=== PATIENT | female | born 1950 | race Caucasian/White ===

== ENCOUNTER 2021-12-27 10:32 | Outpatient (REF) | payer MEDICARE, SELFPAY ==
[2021-12-27 16:33] LABS: HCT 39.6 % (36.0-46.0); HGB 13.2 g/dL (11.2-15.7); MCH 30.9 pg (27.0-33.0); MCHC 33.3 % (32.0-36.0); MCV 93 fL (80-95); MPV 10.9 fL (8.0-11.0); Platelet Count 220 10^3/uL (130-400); RBC 4.27 10^6/uL (3.93-5.22); RDW 12.5 % (11.7-14.6); RDW-SD 42.5 fL; WBC 5.39 10^3/uL (4.4-10.8)
[2021-12-27 16:45] LABS: Hemoglobin A1C 7.7 % (<5.7)
[2021-12-27 16:46] LABS: ALT 41 U/L (14-59); AST 31 U/L (15-37); Albumin 4.1 g/dL (3.4-5.0); Alkaline Phosphatase 77 U/L (46-116); Anion Gap 9.5 mmol/L (3-11); BUN 17 mg/dL (7-18); Bilirubin, Total 0.4 mg/dL (0.2-1.0); CO2 26.5 mmol/L (21.0-32.0); CREATININE 0.8 mg/dL (0.55-1.02); Calcium 8.9 mg/dL (8.5-10.1); Calculated LDL 85 mg/dL (<100); Chloride 103 mmol/L (98-107); Cholesterol 163 mg/dL (<200); Glucose 151 mg/dL (74-106); HDL Cholesterol 46 mg/dL (40-60); Potassium 4.4 mmol/L (3.5-5.1); Sodium 139 mmol/L (136-145); Total Protein 7.4 g/dL (6.4-8.2); Triglyceride 163 mg/dL (<150)
[2021-12-27 17:12] LABS: COMMENT (LAB VIEW ONLY) 29.29 mg/dL; Microalb ug/mg Crea 14.3 ug/mg Cr
== END 2021-12-27 10:33 | disposition home or self-care (01) ==
LOC: NCHCN 10:32
PROVIDERS: Visit Provider Physician Assistant
DX: E11.9 Type 2 diabetes mellitus without complications (principal); R23.3 Spontaneous ecchymoses
CPT/HCPCS: 80053; 80061; 85027; 82043; 82570; 83036

== ENCOUNTER → 2022-04-07 10:11 | Outpatient (BNVA) | payer MEDICARE, SELFPAY | PROVIDERS: Visit Provider Student in an Organized Health Care Education/Training Program | DX: G56.01 Carpal tunnel syndrome, right upper limb (principal); G56.02 Carpal tunnel syndrome, left upper limb; M65.331 Trigger finger, right middle finger; M65.332 Trigger finger, left middle finger; G56.21 Lesion of ulnar nerve, right upper limb; G56.22 Lesion of ulnar nerve, left upper limb | CPT/HCPCS: 99203 ==

== ENCOUNTER 2022-04-22 17:25 | Outpatient (REF) | payer MEDICARE, SELFPAY ==
[2022-04-22 18:40] LABS: HCT 41.8 % (36.0-46.0); MCH 30.8 pg (27.0-33.0); MCHC 33.5 % (32.0-36.0); MCV 92 fL (80-95); MPV 10.6 fL (8.0-11.0); Platelet Count 244 10^3/uL (130-400); RBC 4.55 10^6/uL (3.93-5.22); RDW 12.4 % (11.7-14.6); RDW-SD 42.1 fL; WBC 7.15 10^3/uL (4.4-10.8)
== END 2022-04-22 17:26 | disposition home or self-care (01) ==
LOC: NCHCN 17:25
PROVIDERS: PCP Physician Assistant; Visit Provider Physician Assistant
DX: R23.3 Spontaneous ecchymoses (principal)
CPT/HCPCS: 85027

== ENCOUNTER 2023-01-05 15:52 | Outpatient (REF) | payer BC, MEDICARE, SELFPAY ==
[2023-01-05 15:04] LABS: Hemoglobin A1C 6.4 % (<5.7)
[2023-01-05 15:07] LABS: ALT 40 U/L (14-59); AST 25 U/L (15-37); Albumin 4.1 g/dL (3.4-5.0); Alkaline Phosphatase 61 U/L (46-116); Anion Gap 11.3 mmol/L (3-11); BUN 21 mg/dL (7-18); Bilirubin, Total 0.3 mg/dL (0.2-1.0); CO2 24.7 mmol/L (21.0-32.0); CREATININE 0.9 mg/dL (0.55-1.02); Calculated LDL 75 mg/dL (<100); Chloride 102 mmol/L (98-107); Cholesterol 181 mg/dL (<200); Estimated GFR 68.35 (mL/min/1.73m2); Glucose 112 mg/dL (74-106); HDL Cholesterol 43 mg/dL (40-60); Potassium 4.6 mmol/L (3.5-5.1); Sodium 138 mmol/L (136-145); Total Protein 7.5 g/dL (6.4-8.2); Triglyceride 315 mg/dL (<150)
[2023-01-05 15:16] LABS: COMMENT (LAB VIEW ONLY) 80.28 mg/dL
== END 2023-01-05 15:53 | disposition home or self-care (01) ==
LOC: NCHCN 15:52
PROVIDERS: PCP Physician Assistant; Visit Provider Physician Assistant
DX: E11.9 Type 2 diabetes mellitus without complications (principal)
CPT/HCPCS: 80053; 80061; 82043; 82570; 83036

== ENCOUNTER 2023-01-20 07:58 | Outpatient (CLI) | payer MEDICARE, SELFPAY | END 2023-01-20 07:59 | disposition home or self-care (01) | LOC: DI.CARD 07:59 | PROVIDERS: PCP Physician Assistant; Visit Provider Internal Medicine Cardiovascular Disease | DX: I25.10 Atherosclerotic heart disease of native coronary artery without angina pectoris (principal) | CPT/HCPCS: 93010 ==

== ENCOUNTER → 2023-01-20 10:54 | Outpatient (BNVA) | payer MEDICARE, BC, SELFPAY | PROVIDERS: PCP Physician Assistant; Referring Provider Physician Assistant; Visit Provider Internal Medicine Cardiovascular Disease ==

== ENCOUNTER 2023-02-03 07:58 | Outpatient (CLI) | payer BC, MEDICARE, SELFPAY | END 2023-02-03 07:59 | disposition home or self-care (01) | LOC: DI.CARD 07:58 | PROVIDERS: PCP Physician Assistant; Visit Provider Internal Medicine Cardiovascular Disease | DX: I25.10 Atherosclerotic heart disease of native coronary artery without angina pectoris (principal) | CPT/HCPCS: 93010 ==

== ENCOUNTER → 2023-02-03 11:02 | Outpatient (BNVA) | payer BC, MEDICARE, SELFPAY | PROVIDERS: PCP Physician Assistant; Referring Provider Physician Assistant; Visit Provider Internal Medicine Cardiovascular Disease | CPT/HCPCS: 93005; 99202; 99213 ==

== ENCOUNTER 2023-03-24 09:31 | Outpatient (CLI) | payer BC, MEDICARE, SELFPAY ==
--- NOTE | 2023-03-24 10:00 | RT.EKG_ITS ---
APPROVED REPORT Exam: Resting ECG Reason for Exam: CAD Patient Location: O HR:81 bpm ECG Measurements Heart Rate 81 AXIS CA 142 P 64 QRSd 82 QRS 43 QT 383 T 43 QTc 445 Conclusion Sinus rhythm...normal P axis, V-rate 50- 99 Normal Electrocardiogram
== END 2023-03-24 09:32 | disposition home or self-care (01) ==
PROVIDERS: PCP Physician Assistant; Visit Provider Internal Medicine Cardiovascular Disease
DX: I25.10 Atherosclerotic heart disease of native coronary artery without angina pectoris (principal)
CPT/HCPCS: 93005; 93010

== ENCOUNTER 2023-10-13 12:00 | Outpatient (REF) | payer BC, MEDICARE, SELFPAY ==
[2023-10-13 15:16] LABS: HCT 39.9 % (36.0-46.0); MCH 30.3 pg (27.0-33.0); MCHC 32.6 % (32.0-36.0); MCV 93 fL (80-95); Platelet Count 249 10^3/uL (130-400); RBC 4.29 10^6/uL (3.93-5.22); RDW-SD 44.6 fL; WBC 8.37 10^3/uL (4.4-10.8)
[2023-10-13 15:43] LABS: Hemoglobin A1C 6.9 % (<5.7)
[2023-10-13 16:18] LABS: ALT 51 U/L (14-59); AST 29 U/L (15-37); Albumin 4.2 g/dL (3.4-5.0); Alkaline Phosphatase 56 U/L (46-116); Anion Gap 8.7 mmol/L (3-11); BUN 19 mg/dL (7-18); Bilirubin, Total 0.3 mg/dL (0.2-1.0); CO2 24.3 mmol/L (21.0-32.0); Calcium 8.9 mg/dL (8.5-10.1); Chloride 104 mmol/L (98-107); Cholesterol 159 mg/dL (<200); Estimated GFR 60.23 (mL/min/1.73m2); Glucose 134 mg/dL (74-106); HDL Cholesterol 46 mg/dL (40-60); Potassium 4.3 mmol/L (3.5-5.1); Sodium 137 mmol/L (136-145); Total Protein 7.5 g/dL (6.4-8.2); Triglyceride 412 mg/dL (<150)
[2023-10-13 16:37] LABS: LDL CHOLESTEROL 71 mg/dL (<100)
== END 2023-10-13 12:01 | disposition home or self-care (01) ==
LOC: NCHCN 12:00
PROVIDERS: PCP Physician Assistant; Visit Provider Physician Assistant
DX: E11.9 Type 2 diabetes mellitus without complications (principal); I10 Essential (primary) hypertension
CPT/HCPCS: 80053; 80061; 83721; 85027; 83036

== ENCOUNTER 2024-02-28 21:36 | Emergency (ER) | payer BC, MEDICARE, SELFPAY ==
[2024-02-28 21:39] VITALS: BP 188/94; PULSE 106; RESP 15; TEMP 36.9; O2SAT 95
--- NOTE | 2024-02-28 22:01 | DI.CT_ITS ---
Exam(s) CT ABDOMEN PELVIS WO EXAM: CT ABDOMEN PELVIS WO CLINICAL HISTORY: abd pain, h/o obstruction. TECHNIQUE: Imaging Protocol: Axial computed tomography images with coronal and sagittal reformatted images were created and reviewed CONTRAST MATERIAL: Intravenous: none Oral: None COMPARISON: No exams were available for comparison FINDINGS: VISUALIZED LUNG BASES: There is noncalcified 3 millimeter nodule left lower lobe noted. (Series 2/im age 4). Pleural effusions ABDOMEN: GI: There is evidence of previous bowel surgery with small bowel anastomosis noted in the pelvis with this being patulous and fecal filled in with some mild surrounding streaking at this level but witho ut an obvious high-grade obstruction at this time. LIVER: Liver is slightly prominent in size and hypodense implying steatosis. There no obvious discre te focal hepatic lesions evident on this non few study. GALLBLADDER/BILIARY: Gallbladder surgically absent. CBD is not dilated. PANCREAS: No evidence of pancreatic mass nor dilatation of the pancreatic duct. SPLEEN: Spleen is not enlarged. No obvious intrasplenic lesions. ADRENALS: There are no significant adrenal masses. KIDNEYS:No cysts evident. No solid renal masses. No calculi nor hydronephrosis. . ABDOMINAL AORTA: Heavily calcified but not enlarged. LYMPH NODES: There is no retroperitoneal nor paraaortic adenopathy. ABDOMINAL WALL: No evidence of significant anterior abdominal wall nor inguinal hernia. PELVIS: LYMPH NODES: There is no intrapelvic nor inguinal adenopathy. GI: No evidence of appendicitis.No evidence of sigmoid diverticulitis.. URINARY BLADDER: Bladder is collapsed. REPRODUCTIVE: Uterus surgically absent. No abnormal adnexal masses. OSSEOUS: No fractures. Multilevel lower lumbar spine fusion L4-5-S1. Also trans sacral stimulator a s well as posterior epidural leads at and above T12-L1 level. IMPRESSION: 1. There is evidence of previous partial small bowel resection with anastomosis in the pelvis. The a nastomosis appears somewhat patulous and fecal filled and there is some mild surrounding fat strandin g. Suspicious for element of developing obstruction at this level. Not exclude early leak. Read by [facility]. Final report called by myself to ER physician 02/29/2024 RADIATION DOSE DELIVERED: 395.34mGy.cm Total DLP DATA REPOSITORY: All CT scans at this facility are submitted to the National Radiology Data Registry (NRDR) Dose Index Registry (DIR) with the [employer] (A[employer]). RADIATION OPTIMIZATION: All CT scans at this facility use at least one of these dose optimization te chniques: automated exposure control; mA and/or kV adjustment per patient size (includes targeted exa ms where dose is matched to clinical indication); or iterative reconstruction.
--- NOTE | 2024-02-28 22:18 | ED.GENADUL_ITS ---
Discharge Plan Discharge Details Chief Complaint: Abd Prob Primary Care Provider: Nikolas Matos ED Provider: Imelda Paige Home Meds and New Rx's Prescriptions: No Action fluticasone propion-salmeterol [Advair Diskus] 250-50 mcg/dose blister with device 1 inh inhalation BID albuterol sulfate 90 mcg/actuation HFA aerosol inhaler 2 puff inhalation Q6H PRN amlodipine 10 mg tablet 10 mg PO DAILY diphenhydramine HCl [Allergy (diphenhydramine)] 25 mg capsule 25 mg PO QHS PRN isosorbide mononitrate 60 mg tablet extended release 24 hr 60 mg PO DAILY nitroglycerin 0.4 mg tablet, sublingual 0.4 mg sublingual Q5M PRN Rx Instructions: do not exceed 3 doses per episode omeprazole 20 mg capsule,delayed release(DR/EC) 20 mg PO BID pravastatin 20 mg tablet 20 mg PO DAILY aspirin 81 mg tablet,delayed release (DR/EC) 81 mg PO DAILY stool softener PO BID metformin 1,000 mg tablet 1,000 mg PO BID hydroxyzine HCl 25 mg tablet 25 mg PO TID PRN Jardiance 10 mg tablet 10 mg PO DAILY triamcinolone acetonide 0.1 % cream 1 applic topical BID losartan 25 mg tablet 100 mg PO DAILY topiramate [Topamax] 25 mg tablet 25 mg PO BID levalbuterol tartrate 45 mcg/actuation HFA aerosol inhaler 2 inh inhalation Q6H atorvastatin 20 mg tablet 20 mg PO DAILY fluticasone furoate-vilanterol [Breo Ellipta] 100-25 mcg/dose blister with device 1 inh inhalation DAILY famotidine 40 mg tablet 40 mg PO DAILY metoprolol succinate 100 mg tablet extended release 24 hr 100 mg PO DAILY trazodone 100 mg tablet 100 mg PO QHS PRN HPI General Date/Time Provider Initiated Documentation: 02/28/24 21:42 . HPI Narrative: Kae is a 73-year-old female with history of multiple abdominal surgeries/bowel resections due to obstruction who presents to the emergency department today for evaluation of cramping abdominal pain with nausea since 4 PM this afternoon. She reports that she has a longstanding history of constipation, having daily hard stools. For the last 2 or 3 days stools have been mixed with dark red blood, which is unusual for her. Yesterday evening she developed diarrhea, which persisted until today. She denies associated fever/chills, vomiting, change in bladder function. She says this feels similar to prior obstructions. She does have a history of HTN, HLD, COPD/asthma, T2DM treated with metformin. Physical exam remarkable for diffuse tenderness with palpation. Abdomen is softly distended, slightly hyperactive bowel sounds. Easy work of breathing, lung sounds clear bilaterally. Normal heart sounds. Rectal exam reassuring, no obvious blood on glove. Hemoccult negative. DDx includes but is not limited to: Lower GI bleed, constipation with fecal leakage, obstruction, neoplasm, diverticulitis, mesenteric ischemia, fecal impaction I independently interpreted the following tests: CBC, CMP, lipase, lactate all reassuring. While in the emergency department Dave received Zofran for nausea, Dilaudid for pain relief, and IV fluids at 125 an hour for gentle hydration while NPO. She does have a history of intolerance to IV contrast, says she has not been able to tolerate it for some time due to all the CAT scan she has had, so non- con CT of abdomen/pelvis performed. Awaiting CT results. Handoff report given to Dr. Claire, overnight attending. Related Data Home Medications ?Medication ?Instructions ?Recorded ?Confirmed albuterol sulfate 90 mcg/actuation 2 puff inhalation Q6H PRN 04/07/22 08/04/23 aerosol inhaler amlodipine 10 mg tablet 10 mg PO DAILY 04/07/22 08/04/23 aspirin 81 mg tablet,delayed 81 mg PO DAILY 04/07/22 08/04/23 release diphenhydramine HCl 25 mg capsule 25 mg PO QHS PRN 04/07/22 08/04/23 (Allergy (diphenhydramine)) fluticasone 250 mcg-salmeterol 50 1 inh inhalation BID 04/07/22 02/03/23 mcg/dose blistr powdr for inhalation (Advair Diskus) isosorbide mononitrate 60 mg 60 mg PO DAILY 04/07/22 08/04/23 tablet,extended release 24 hr nitroglycerin 0.4 mg sublingual 0.4 mg sublingual Q5M PRN 04/07/22 08/04/23 tablet omeprazole 20 mg capsule,delayed 20 mg PO BID 04/07/22 08/04/23 release pravastatin 20 mg tablet 20 mg PO DAILY 04/07/22 08/04/23 stool softener PO BID 04/07/22 08/04/23 hydroxyzine HCl 25 mg tablet 25 mg PO TID PRN 04/21/22 08/04/23 metformin 1,000 mg tablet 1,000 mg PO BID 04/21/22 08/04/23 empagliflozin 10 mg tablet 10 mg PO DAILY 08/05/22 08/04/23 (Jardiance) losartan 25 mg tablet 100 mg PO DAILY 08/05/22 08/04/23 triamcinolone acetonide 0.1 % 1 applic topical BID 08/05/22 08/04/23 topical cream levalbuterol tartrate 45 2 inh inhalation Q6H 07/06/23 08/04/23 mcg/actuation aerosol inhaler topiramate 25 mg tablet (Topamax) 25 mg PO BID 07/06/23 08/04/23 atorvastatin 20 mg tablet 20 mg PO DAILY 01/27/24 famotidine 40 mg tablet 40 mg PO DAILY 01/27/24 fluticasone furoate 100 1 inh inhalation DAILY 01/27/24 mcg-vilanterol 25 mcg/dose inhalation powder (Breo Ellipta) metoprolol succinate 100 mg 100 mg PO DAILY 01/27/24 tablet,extended release 24 hr trazodone 100 mg tablet 100 mg PO QHS PRN 01/27/24 Allergies Allergy/AdvReac Type Severity Reaction Status Date / Time alprazolam (From Xanax) Allergy Severe hives Verified 02/28/24 21:44 codeine Allergy Severe throat Verified 08/04/23 10:21 swells shut meperidine (From Demerol) Allergy Severe Hives Verified 02/28/24 21:44 Penicillins Allergy Severe throat Verified 02/28/24 21:44 swells shut butorphanol (From Stadol) Allergy Intermediate Anaphylaxis Verified 02/28/24 21:44 ketorolac (From Toradol) Allergy Intermediate Nausea Verified 02/28/24 21:44 IV Contrast Allergy Severe Skin Rash Uncoded 02/28/24 21:44 General Stated Complaint: Abd Prob ABRAHAM: 3 Review of Systems Narrative: see HPI Exam Const General: cooperative, healthy appearing and other (appears uncomfortable) Nutritional Appearance: overweight Resp Effort & Inspection: normal respiratory effort and able to speak in complete sentences Auscultation: clear to auscultation bilaterally Cardio Rate: tachycardic Rhythm: regular rhythm GI Inspection: normal to inspection and distended Palpation: soft, not firm, no guarding and tender (diffuse) Auscultation: hyperactive bowel sounds Rectal Exam - female: visual inspection normal, normal sphincter tone, No fecal impaction, heme negative stool and No mass Course Vital Signs Vital signs: Vital Signs Temperature 36.9 C 02/28/24 21:39 Pulse 106 H 02/28/24 21:39 Respiratory Rate 15 02/28/24 21:39 Blood Pressure 188/94 H 02/28/24 21:39 Pulse Oximetry 95 02/28/24 21:39 Temperature 36.9 C 02/28/24 21:39 Pulse 106 H 02/28/24 21:39 Respiratory Rate 15 02/28/24 21:39 Respiratory Effort Normal 02/28/24 21:46 Blood Pressure 188/94 H 02/28/24 21:39 Pulse Oximetry 95 02/28/24 21:39 Oxygen Delivery Method Room Air 02/28/24 21:39 Oxygen Flow Rate 0 02/28/24 21:39 Pain Level 10 02/28/24 21:39 Medical Decision Making Quality:SDOH Health Related Social Needs: No Data to Display PFSH All Active Problems (Updated 01/27/24 @ 13:31 by Ana Gordillo RN) Chronic constipation (Acute) Arthritis (Acute) Back pain (Acute) Eye disorder (Acute) GERD (gastroesophageal reflux disease) (Chronic) Obesity (Chronic) Claustrophobia (Acute) Hyperlipidemia (Acute) Hypertension (Chronic) Osteoporosis (Chronic) Headache (Acute) Asthma with COPD (chronic obstructive pulmonary disease) (Acute) Parkinsons disease (Chronic) 02/03/23 pt has a DBS implanted for this RH CAD (coronary artery disease) (Chronic) Vitamin D deficiency (Acute) Nausea and vomiting (Acute) Left upper quadrant abdominal pain (Acute) Diarrhea (Acute) Screening for colon cancer (Acute) Corns and callosities (Acute) Diabetes mellitus (Chronic) Cubital tunnel syndrome on left (Acute) Cubital tunnel syndrome on right (Acute) Trigger finger, left middle finger (Acute) Trigger finger, right middle finger (Acute) Left carpal tunnel syndrome (Acute) Right carpal tunnel syndrome (Acute) Medical History Osteoarthritis of left knee mild Small bowel obstruction Diverticulitis PTSD (post-traumatic stress disorder) Light headedness Dermatitis Anxiety Petechial rash upper and lower extremities, chronic. Started in 2018. COPD (chronic obstructive pulmonary disease) Surgical History History of colostomy reversal Social History Smoking/Tobacco Use Status: Former Tobacco Use Quit Date: 06/15/11 Smoking risk assessment performed?: Yes Alcohol Intake: never Drug use: Never Housing: house Do you feel safe at home: Yes Do you feel safe in your relationship?: Yes
[2024-02-28] MEDS: HYDROmorphone 2 MG/ML SYR 0.5 MG IVP (22:23)
[2024-02-28] MEDS: Ondansetron 4 MG/2 ML VIAL IVP (22:23)
[2024-02-28 22:26] LABS: Abs Immature Grans 0.03 10^3/uL (0.0-0.06); Absolute Basophil Count 0.02 10^3/uL (0.0-0.2); Absolute Eosinophil Count 0.29 10^3/uL (0.0-0.7); Absolute Lymphocyte Count 2.34 10^3/uL (1.2-3.4); Absolute Monocyte Count 0.61 10^3/uL (0.1-0.8); Absolute Neutrophil Count 3.95 10^3/uL (1.2-6.7); Basophils % 0.3 %; HCT 41.4 % (36.0-46.0); HGB 13.7 g/dL (11.2-15.7); Immature Grans % 0.4 %; Lymphocytes % 32.3 %; MCH 30.4 pg (27.0-33.0); MCHC 33.1 % (32.0-36.0); MCV 92 fL (80-95); MPV 9.8 fL (8.0-11.0); Monocytes % 8.4 %; Neutrophils % 54.6 %; Platelet Count 241 10^3/uL (130-400); RDW 13.2 % (11.7-14.6); RDW-SD 44.6 fL; WBC 7.24 10^3/uL (4.4-10.8)
[2024-02-28] MEDS: Lactated Ringers 1,000 ML 125 ML IV (22:36)
[2024-02-28 22:49] LABS: ALT 45 U/L (14-59); AST 37 U/L (15-37); Albumin 4.3 g/dL (3.4-5.0); Alkaline Phosphatase 69 U/L (46-116); Anion Gap 9.4 mmol/L (3-11); BUN 16 mg/dL (7-18); Bilirubin, Total 0.37 mg/dL (0.2-1.0); CO2 27.6 mmol/L (21.0-32.0); CREATININE 0.9 mg/dL (0.55-1.02); Chloride 101 mmol/L (98-107); Estimated GFR 67.92 (mL/min/1.73m2); Glucose 176 mg/dL (74-106); Lipase 29 U/L (16-77); Sodium 138 mmol/L (136-145); Total Protein 8.2 g/dL (6.4-8.2)
[2024-02-28 22:53] LABS: Calcium 9.6 mg/dL (8.5-10.1)
[2024-02-28] MEDS: HYDROmorphone 2 MG/ML SYR 0.75 MG IVP (23:50)
--- NOTE | 2024-02-29 00:20 | DI.VRAD_ITS ---
PROCEDURE INFORMATION: Exam: CT Abdomen And Pelvis Without Contrast Exam date and time: 02/28/2024 10:24 PM Age: 73 years old Clinical indication: Abd pain, HX obstruction TECHNIQUE: Imaging protocol: Computed tomography of the abdomen and pelvis without contrast. COMPARISON: No relevant prior studies available. FINDINGS: Lungs: No acute infiltrate in either lung base. Left lower lobe calcified granuloma(s). Liver: Liver fatty infiltration. Gallbladder and biliary ducts: Status post cholecystectomy. No biliary tract dilatation. Pancreas: Normal. No ductal dilation. Spleen: Normal. No splenomegaly. Adrenal glands: Normal. No mass. Kidneys and ureters: No hydronephrosis. No calcified renal or ureteral stones. No perinephric stranding or perinephric fluid. Stomach and bowel: No generalized ileus or bowel obstruction. Patulous bowel loop within the pelvic region containing anastomotic suture line. Appendix: No evidence of appendicitis. Intraperitoneal space: No free air. No significant fluid collection. Vasculature: The abdominal aorta is normal in caliber without aneurysm. Lymph nodes: No enlarged lymph nodes. Urinary bladder: Under-distended urinary bladder. Reproductive: Unremarkable as visualized. Bones/joints: Neurostimulator leads in the thoracic spinal canal. Prior surgery at the L3 through S1 levels. Soft tissues: A few shallow fat-containing ventral hernias. IMPRESSION: 1. No acute intra-abdominal or pelvic process. 2. No generalized ileus or bowel obstruction. Dictated and Authenticated by: Timothy Bates MD. Ordering:DIETER Segura MD
[2024-02-29 00:23] LABS: Bilirubin Negative (Negative); Blood Negative (Negative); Clarity Clear (Clear); Glucose Negative (Negative); Ketones Negative (Negative); Leukocyte Esterase Negative (Negative); Nitrite Negative (Negative); Urobilinogen 0.2 mg/dL (Up to 0.2)
--- NOTE | 2024-02-29 00:40 | ED.PROG_ITS ---
Date of service: 02/29/24 Time of Service: 00:40 Medical Decision Making Patient was signed out to me pending CT scan results. CT scan results have returned no evidence of acute process. On reassessment patient is feeling much better. She states that symptoms feel identical to previous episodes where she has had stool that tries to pass through the previous anastomotic region from when she had her previous resection. On review of CT scan she does show evidence of a patulous bowel loop in the pelvic region containing the anastomotic suture line, which correlates well with her history and symptoms. Patient shows no evidence of an acute surgical abdomen on reassessment, no signs of significant abdominal tenderness. Patient does have a stool softener regiment that she daily describes to, however I have recommended that she continues this with 5 to 6 cups of water or prune juice when she takes her next morning and evening dose to help push through the present stool boluses. Patient otherwise looks clinically well and is stable for discharge. Discussed red flags for which to return. I have extensively reviewed the treatment plan and discharge instructions with the patient. I have addressed all patient concerns at this time. The patient was made aware of what symptoms to monitor for that would warrant a return to the emergency department. Discussed the plan with the patient, they demonstrate verbal understanding and agreement with our assessment and plan at this time. The documentation in this chart was dictated using [employer] dictation software. Please excuse any dictation errors. FINDINGS: Lungs: No acute infiltrate in either lung base. Left lower lobe calcified granuloma(s). Liver: Liver fatty infiltration. Gallbladder and biliary ducts: Status post cholecystectomy. No biliary tract dilatation. Pancreas: Normal. No ductal dilation. Spleen: Normal. No splenomegaly. Adrenal glands: Normal. No mass. Kidneys and ureters: No hydronephrosis. No calcified renal or ureteral stones. No perinephric stranding or perinephric fluid. Stomach and bowel: No generalized ileus or bowel obstruction. Patulous bowel loop within the pelvic region containing anastomotic suture line. Appendix: No evidence of appendicitis. Intraperitoneal space: No free air. No significant fluid collection. Vasculature: The abdominal aorta is normal in caliber without aneurysm. Lymph nodes: No enlarged lymph nodes. Urinary bladder: Under-distended urinary bladder. Reproductive: Unremarkable as visualized. Bones/joints: Neurostimulator leads in the thoracic spinal canal. Prior surgery at the L3 through S1 levels. Soft tissues: A few shallow fat-containing ventral hernias. IMPRESSION: 1. No acute intra-abdominal or pelvic process. 2. No generalized ileus or bowel obstruction. Thank you for allowing us to participate in the care of your patient. Dictated and Authenticated by: Timothy Bates MD 02/29/2024 12:19 AM Eastern Time ([place] & [place]) Quality:SDOH Health Related Social Needs: No Data to Display Sign Out Sign Out Data: Sign Out Comment: 73-year-old female with history of multiple bowel obstructions presents to the emergency department today for evaluation of dark red blood in stool x 2 to 3 days, accompanied by new onset diarrhea, nausea, and cramping abdominal pain. Labs all reassuring. Pain controlled with Dilaudid. Zofran given for nausea. Awaiting CT results. Last updated by Imelda Paige at 02/28/24 23:33 Discharge Plan Disposition Patient Disposition: Home Condition: Good Discharge Details Chief Complaint: Abd Prob Clinical Impression: Abdominal discomfort Primary Care Provider: Nikolas Matos ED Provider: Bernardo Claire Home Meds and New Rx's Prescriptions: No Action fluticasone propion-salmeterol [Advair Diskus] 250-50 mcg/dose blister with device 1 inh inhalation BID albuterol sulfate 90 mcg/actuation HFA aerosol inhaler 2 puff inhalation Q6H PRN amlodipine 10 mg tablet 10 mg PO DAILY diphenhydramine HCl [Allergy (diphenhydramine)] 25 mg capsule 25 mg PO QHS PRN isosorbide mononitrate 60 mg tablet extended release 24 hr 60 mg PO DAILY nitroglycerin 0.4 mg tablet, sublingual 0.4 mg sublingual Q5M PRN Rx Instructions: do not exceed 3 doses per episode omeprazole 20 mg capsule,delayed release(DR/EC) 20 mg PO BID pravastatin 20 mg tablet 20 mg PO DAILY aspirin 81 mg tablet,delayed release (DR/EC) 81 mg PO DAILY stool softener PO BID metformin 1,000 mg tablet 1,000 mg PO BID hydroxyzine HCl 25 mg tablet 25 mg PO TID PRN Jardiance 10 mg tablet 10 mg PO DAILY triamcinolone acetonide 0.1 % cream 1 applic topical BID losartan 25 mg tablet 100 mg PO DAILY topiramate [Topamax] 25 mg tablet 25 mg PO BID levalbuterol tartrate 45 mcg/actuation HFA aerosol inhaler 2 inh inhalation Q6H atorvastatin 20 mg tablet 20 mg PO DAILY fluticasone furoate-vilanterol [Breo Ellipta] 100-25 mcg/dose blister with device 1 inh inhalation DAILY famotidine 40 mg tablet 40 mg PO DAILY metoprolol succinate 100 mg tablet extended release 24 hr 100 mg PO DAILY trazodone 100 mg tablet 100 mg PO QHS PRN Discharge Instructions Instructions: Abdominal Pain, Adult ED Additional Instructions: At this time your workup has returned very reassuring. Your CAT scan per the radiologist does not show any evidence of obstruction or ileus. There is stool in the anastomotic region where your bowel was rejoined. This is likely a component of the cause of your symptoms. Please drink plenty of fluids and stay well-hydrated. When you take your nighttime and morning doses of laxative please make sure to take this with 5 to 6 cups of water, electrolyte solution, or prune juice. If you notice any worsening of your symptoms, or any new symptoms such as vomiting, diarrhea, fever, chills, shortness of breath, chest p ain, numbness, weakness, or fainting , please return immediately to the emergency department for reevaluation. Please follow up with your primary care provider as soon as possible for reassessment and reevaluation. As always, it was a pleasure participating in your medical care today. Referrals: Nikolas Matos [Primary Care Provider] -
[2024-02-29 01:16] VITALS: BP 132/69; PULSE 86; RESP 16; O2SAT 95
--- NOTE | 2024-02-29 16:25 | W.ED.FU ---
Date of service: 02/29/24 Time of Service: 16:26 Follow Up Plan: I received a call from radiology concerning this patient's CT scan from yesterday evening. Radiology was concerned that there was an element of developing obstruction and that there is possibly an early anastomotic leak. I called the patient and she reported that she was having persistent and worsening abdominal pain. She reported that she had had some hematochezia. I advised her to call the ambulance and return to the emergency department as she will likely benefit from reassessment with the possibility of a repeat CT scan to ensure that she has not developing a surgical process. She understood her CT findings and will reportedly return to the emergency department later today.
== END 2024-02-29 01:17 | disposition home or self-care (01) ==
LOC: ER 02-29 03:07
PROVIDERS: Nurse Practitioner Family; Emergency Provider Student in an Organized Health Care Education/Training Program; PCP Physician Assistant
DX: R10.9 Unspecified abdominal pain (principal); Z87.19 Personal history of other diseases of the digestive system
CPT/HCPCS: 00123; 36415; 80053; 83690; 96361; 96374; 96375; 96376; 99284; 74176; 81003; 83605; 85025; 99283; J1170; J2405

== ENCOUNTER 2024-02-29 19:08 | Observation (INO) | payer BC, MEDICARE, SELFPAY ==
[2024-02-29] VITALS (34 sets, daily range): BP systolic 90–169; BP diastolic 8–84; PULSE 68–103; RESP 11–20; TEMP 36–38; O2SAT 89–98
--- OUTSIDE RECORDS SUMMARY | 2024-02-29 19:13 | XMS_ITS | Continuity of Care Document ---
Author Organization [facility] Address [address] [place] [address] Care Team Providers Care Home Improvement Contractor Name Role Phone Nikolas Matos Primary Care Physician Encounter [facility] Date(s): 10/12/22 - 10/12/[address] [id number] Encounter Diagnosis Intra-abdominal adhesions(Discharge Diagnosis) - 10/12/22 Discharge Disposition: Home or Self Care Attending Physician: Radhames Calles MD Admitting Physician: Radhames Calles MD Allergies, Adverse Reactions, Alerts Substance Reaction Severity Status codeine Hives Unknown Active penicillin Anaphylaxis Severe Active morphine Vomiting Unknown Active Demerol Hives Unknown Active Toradol Hives Unknown Active Stadol Rash Unknown Active Valium Unknown Active Tylenol Petechiae Unknown Active contrast media (iodine-based) Rash Mild Active Functional Status 10/12/22 Family Member Travel History No recent t ravel Recent Travel History No recent travel Other exposure to Infectious Disease Non e Immunizations Given and Recorded Vaccine Date Status Refusal Reason influenza virus vaccine, inactivated 06/20/22 Deven rded influenza, unspecified formulation 01/13/22 Record ed Td(adult) unspecified formulation 1 11/23/21 Recor ded zoster vaccine, inactivated 2 08/25/21 Recorded Pneumococcal Conjugate, unspecified form 03/26/21 Recorded 1Result Comment: Tetanus Vaccine, Frequency 10 years 2Result Comment: Zoster/Shingles Vaccine Medications !-Zofran ODT 4 mg oral tablet, disintegrating 4 mg = 1 tab, Oral, every 8 hr, PRN as needed for nausea/vomiting, 0 Refill(s) Start Date: 08/19/22 Status: Ordered amLODIPine 10 mg =, 0 Refill(s) Start Date: 10/12/22 Status: Ordered aspirin 81 mg oral capsule 81 mg = 1 cap, Oral, Daily, 0 Refill(s) Start Date: 06/18/22 Status: Ordered Bydureon Pen 2 mg subcutaneous injection, extended release 2 mg =, Subcutaneous, every week, # 4 EA, 0 Refill(s) Start Date: 08/19/22 Status: Ordered clotrimazole-betamethasone dipropionate 1%-0.05% topical cream 1 erica, Topical, BID, # 45 g, 0 Refill(s), Pharmacy: [id number] Start Date: 08/05/22 Status: Ordered diphenhydrAMINE 25 mg oral capsule 50 mg = 2 cap, Oral, every day at bedtime, PRN as needed for insomnia, # 30 cap, 0 Refill(s) Start Date: 06/18/22 Status: Ordered hydrOXYzine hydrochloride 25 mg oral tablet 25 mg = 1 tab, Oral, TID, PRN as needed for anxiety, 0 Refill(s) Start Date: 08/05/22 Status: Ordered isosorbide mononitrate 60 mg oral tablet, extended release 60 mg = 1 tab, Oral, every morning, 0 Refill(s) Start Date: 08/05/22 Status: Ordered Jardiance 10 mg oral tablet 10 mg = 1 tab, Oral, every morning, # 30 tab, 0 Refill(s) Start Date: 10/12/22 Status: Ordered losartan 100 mg oral tablet 100 mg = 1 tab, Oral, Daily, # 30 tab, 0 Refill(s) Start Date: 08/19/22 Status: Ordered metoprolol succinate 50 mg oral capsule, extended release 50 mg = 1 cap, Oral, BID, # 30 cap, 0 Refill(s) Start Date: 06/18/22 Status: Ordered omeprazole 20 mg oral delayed release capsule 20 mg = 1 cap, Oral, BID, 0 Refill(s) Start Date: 08/19/22 Status: Ordered pravastatin 20 mg oral tablet 20 mg = 1 tab, Oral, every night at bedtime, # 30 tab, 0 Refill(s) Start Date: 06/18/22 Status: Ordered traZODone 0 Refill(s) Start Date: 10/12/22 Status: Ordered traZODone 100 mg oral tablet See Instructions, 1 tab Oral every night at bedtime, 0 Refill(s) Start Date: 06/18/22 Status: Ordered Problem List Condition Confirmation Course Effective Dates Status Health Status Informant Cardiac arrhythmia Confirmed Active Chronic low back pain Confirmed Active Chronic obstructive pulmonary disease Confirmed Active Claustrophobia Confirmed Active Constipation Confirmed Active Coronary artery disease Confirmed Active Crohn's disease Confirmed Active Depression Confirmed Active Diverticulitis Confirmed Active GERD (gastroesophageal reflux disease) Confirmed Active Hypercholesteremia Confirmed Active Hypertension Confirmed Active Insomnia Confirmed Active Obesity Confirmed Active Osteoarthritis of left knee Confirmed Active Osteoporosis Confirmed Active Parkinsons disease Confirmed Active Type 2 diabetes mellitus Confirmed Active Procedures Procedure Date Related Diagnosis Body Site Status Laparotomy 1, 2 10/13/20 Completed Knee arthroplasty 3 09/28/18 Compl eted Arthroscopy of knee 02/07/18 Compl eted Colostomy 4 06/14/17 Completed Knee replacement 06/14/14 Complete d Brain stimulation 5 06/14/12 Compl eted Surgery 6 06/14/02 Completed Hysterectomy 1983 Completed 1Exploratory 2With Lysis of Adhesions 3Left knee 4With reversal. History of Crohn's Disease, frequent small bowel obstructions. 5Implantation of electronic stimulator in brain 6Lumbar Spine Surgery Results Laboratory List Name Date CBC w/ Diff 10/12/22 Comprehensive Metabolic Panel (CMP) 10/12 Lactic Acid 10/12/22 Lipase Level 10/12/22 Magnesium Level 10/12/22 SARS-CoV-2 (COVID-19) RNA (ID Now) Urinalysis with Micro if Indicated and C ulture if Indicated 10/12/22 Automated Diff 10/12/22 Most recent to oldest [Reference Range]: 1 WBC [5.0-10.0 x10^3/mcL] 8.6 x10^3/mcL (10/12/22 11:20 AM) RBC [4.1-5.3 x10^6/mcL] 4.8 x10^6/mcL (10/12/22 11:20 AM) Neutro Auto [40.0-75.0 %] 53.7 % (10/12/22 11:20 AM) Lymph Auto [20.0-50.0 %] 33.1 % (10/12/22 11:20 AM) [place] Auto [2.0-15.0 %] 7.5 % (10/12/22 AM) Basophil Auto [0.0-1.0 %] 0.6 % (10/12/22) BUN [7-18 mg/dL] 18 mg/dL (10/12/22 AM) UA Color Yellow (10/12/22) Glucose Level [74-106 mg/dL] 108 mg/dL *HI* (10/12/22) Potassium Level [3.5-5.1 mmol/L] 4.5 mmo l/L (10/12/22 AM) MCV [80.0-96.0] 93.9 (10/12/22) UA Urobilinogen Normal (10/12/22) UA Bili [Negative] Negative (10/12/22) UA Ketones Negative (10/12/22) AST [15-37 unit/L] 43 unit/L *HI* (10/12/22) ALT [14-59 unit/L] 60 unit/L *HI* (10/12/22 AM) MCHC [31.0-35.0 g/dL] 32.9 g/dL (10/12/22 AM) Sodium Level [136-145 mmol/L] 137 mmol/L (10/12/22 AM) UA Leuk Est Negative (10/12/22) UA Nitrite Negative (10/12/22) UA Glucose [Negative] 3+ *ABN* (10/12/22) Hct [37.0-47.0 %] 44.7 % (10/12/22 AM) Lipase Level [16-77 unit/L] 29 unit/L (10/12/22 AM) Calcium Level [8.5-10.1 mg/dL] 9.5 mg/dL (10/12/22 AM) Albumin Level [3.4-5.0 g/dL] 4.3 g/dL (10/12/22 AM) Protein Total [6.4-8.2 g/dL] 8.3 g/dL *HI* (10/12/22 11:20 AM) UA Protein Negative (10/12/22: AM) MCH [26.0-32.0 pg] 30.9 pg (10/12/22: AM) Magnesium Level [1.8-2.4 mg/dL] 1.8 mg/d L (10/12/22: AM) Neutro Absolute 4.6 x10^3/mcL *NA* (10/12/22: AM) Bilirubin Total [0.2-1.0 mg/dL] 0.4 mg/d L (10/12/22: AM) Hgb [12.0-16.0 g/dL] 14.7 g/dL (10/12/22: AM) Alk Phos [46-146 unit/L] 70 unit/L (10/12/22: AM) UA Blood Negative (10/12/22: AM) UA Spec Grav 1.020 *NA* (10/12/22: AM) Platelets [130-450 x10^3/mcL] 256 x10^3/ mcL (10/12/22 11:20 AM) CO2 [21-32 mmol/L] 26 mmol/L (10/12/22: AM) Lactic Acid Lvl [0.7-2.0 mmol/L] 3.2 mmo l/L 1 *CRIT* (10/12/22: AM) UA pH 5.5 *NA* (10/12/22 AM) eGFR Non-AA [>=60] 61 (10/12/22 11: AM) eGFR AA [>=60] 61 (10/12/22 11:20 AM) UA Appear Clear (10/12/22: AM) Chloride Level [98-107 mmol/L] 99 mmol/L (10/12/22: AM) RDW-CV [11.7-17.0 %] 12.9 % (10/12/22 11: AM) Imm Gran Auto [0.0-0.9 %] 0.4 % (10/12/22: AM) Creatinine Level [0.55-1.02 mg/dL] 0.99 mg/dL (10/12/22 11:20 AM) SARS-CoV-2 (COVID-19) RNA (ID Now) [Not Detected] Not Detected (10/12/22 11:20 AM) Employed in healthcare? Unknown (10/12/22 11:20 AM) Symptomatic as defined by CDC? Unknown (10/12/22 11:20 AM) In ICU? Unknown (10/12/22 11:20 AM) Group care resident? Unknown (10/12/22 11:20 AM) status? Unknown (10/12/22 11:20 AM) Eos, Auto [1.0-6.0 %] 4.7 % (10/12/22 11:20 AM) 1Result Comment: Called to and verbally verified by 450 - ED - Federico Soto RN at 10/12/2022 11:46:26 EDT. Vital Signs Most recent to oldest [Reference Range]: 1 2 3 Temperature Temporal Artery [36-38 Deg C] 36.3 Deg C (10/12/22 10:51 AM) Peripheral Pulse Rate [60-100 bpm] 86 bpm (10/12/22 2:55 PM) 86 bpm (10/12/22 2:03 PM) 90 bpm (10/12/22 1:31 PM) Heart Rate Monitored [60-100 bpm] 83 bpm (10/12/22 2:55 PM) 86 bpm (10/12/22 2:03 PM) 86 bpm (10/12/22 1:31 PM) Respiratory Rate [12-24 br/min] 17 br/min (10/12/22 2:55 PM) 17 br/min (10/12/22 2:03 PM) 15 br/min (10/12/22 1:31 PM) Blood Pressure [90-140/60-90 mmHg] 139/118mmHg (10/12/22 2:55 PM) 134/56mmHg (10/12/22 2:03 PM) 141/66mmHg *HI* (10/12/22 1:31 PM) Weight Dosing 73.90 kg (10/12/22 11:00 AM) Weight Estimated 73.90 kg (10/12/22 10:51 AM) Height/Length Dosing 153.000 cm (10/12/22 11:00 AM) Height/Length Estimated 153.000 cm (10/12/22 10:51 AM) Social History Social History Type Response Tobacco Former tobacco user Tobacco Use:. quit 2012 per day. Sex Female Hospital Discharge Instructions Patient Education 10/12/2022 14:17:00 Adhesions Adhesions Adhesions are stringy (fibrous) bands of tissue that stick together. They form between two surfacesof the body. Adhesions are similar to scars, but they form inside your body instead of on your skin. Adhesions can be painful and may cause problems if they pull tissues or organs out of their normal positions. They can also cause problems if they block the normal passage of substances in the body. For example, an adhesion that forms in the intestines can block the passage of food. What are the causes? This condition is caused by inflammation. Adhesions most often develop after surgery, but they can also develop after an infection, radiation treatment, or another event that causes inflammation in the body. What increases the risk? This condition is more likely to develop in: ??? People who have had open surgery in the abdomen. ??? Women who have had more than one section. What are the signs or symptoms? Symptoms of this condition vary depending on where the adhesions form. They may take weeks, months,or years to develop. Symptoms include: ??? Pain in the abdomen or pelvis. This is the most common symptom. ??? Bloating. ??? Constipation. ??? Diarrhea. ??? Vomiting. ??? Pain when having sex. ??? Difficulty getting . Often, there are no symptoms. How is this diagnosed? This condition is diagnosed based on: ??? Your symptoms. ??? Your medical history. ??? A physical exam. ??? Tests, such as an X-ray or CT scan. ??? A surgical procedure that uses a scope to check for adhesions inside your body. How is this treated? Treatment for this condition depends on where the adhesions are located and the symptoms they are causing. If there are no symptoms, treatment may not be needed. If there are symptoms, treatment may include: ??? Taking medicines to help with symptoms. ??? Having surgery to remove the adhesions. Follow these instructions at home: ??? Take [id number] and prescription medicines only as told by your health care provider. ??? If you were prescribed an antibiotic medicine, take it as told by your health care provider. Donot stop using the antibiotic even if you start to feel better. ??? Follow any diet instructions your health care provider gives you. Your health care provider mayrecommend a liquid or low-fiber diet in specific cases. ??? Keep all follow-up visits. This is important. Contact a health care provider if you have: ??? A fever or chills. ??? Pain in the abdomen or pelvis. ??? Vomiting or bloating. ??? Swelling in the abdomen. ??? Loud bowel sounds. ??? Constipation. Get help right away if: ??? You have severe pain in your abdomen or pelvis, and the pain is getting worse. ??? You have vomiting that will not go away. ??? You cannot pass gas. ??? You are unable to have a bowel movement. These symptoms may represent a serious problem that is an emergency. Do not wait to see if the symptoms will go away. Get medical help right away. Call your local emergency services (911 in the [place] Do not drive yourself to the hospital. Summary ??? Adhesions are stringy (fibrous) bands of tissue that stick together. ??? Adhesions can cause problems if they pull tissues or organs out of their normal positions. ??? Symptoms include pain, bloating, vomiting, constipation, diarrhea, pain during sex, and difficulty getting . ??? Treatment for this condition includes medicines and surgery. ??? Take [id number] and prescription medicines only as told by your health care provider. This information is not intended to replace advice given to you by your health care provider. Make sure you discuss any questions you have with your health care provider. Document Revised: 02/08/2021 Document Reviewed: 02/08/2021 [employer] Patient Education ?? 2021 [employer]. Follow Up Care 10/12/2022 10:51:50 With:Follow up with specialist Address:Unknown When:1 month Physician Emergency department Note * Priyank Delgado MD: PERFORM Event Display: ED Note Physician Authored Date: [id number] MIRA BROWN :1950 Age:71 years Sex:Female Visit Date:10/12/2022 Primary Care Physician: Nikolas Matos DO Basic Information Time Seen: Priyank Delgado MD / 10/12/2022 11:02 Chief Complaint It started between 3-4 am that woke me up. I feel like I have another bowel blockage. PT states she had a bowel obstruction a few months ago and was admitted to the hospital. Last BM yesterday. No urinary concern History Of Present Illness: 71-year-old female past medical history Crohn's disease, diverticular disease status post resectionand??ileostomy, lysis of adhesions abdominal procedure, diabetes, Parkinson's presents with abdominal pain. ??States she was in the hospital within the last couple months has recurrent abdominal pain??nausea vomiting and was diagnosed with a low-grade SBO at that time was admitted with left??AGAINST MEDICAL ADVICE. ??Patient comes in with similar presentation with diffuse abdominal pain nausea, decreased p.o. intake.?? Possible vomiting,??no significant diarrhea. ??No fevers chest pain or shortness of breath. Review of Systems: Abdominal pain Physical Exam Vitals & Measurements T:??36.3?C ??(Temporal Artery)?? HR:??86??(Peripheral)?? HR:??83??(Monitored)?? RR:??17?? BP:??139/118?? SpO2:??92%?? HT:??153.000??cm?? WT:??73.90??kg??(Estimated)?? Pain Score:??9?? O2 Therapy:??Room air?? General: Alert and oriented, well nourished,?No??acute distress Eye: PERRL, EOMI,?Normal?conjunctiva Lungs: Clear to auscultation and percussion,?Non-labored?? respiration Heart:?Normal? rate,?Regular??rhythm Abdomen: Reproducible diffuse generalized abdominal pain, otherwise soft nonperitoneal Skin: Skin is warm, dry and pink,?No??rashes,?No??lesions Medical Decision Makin-year-old female presents with abdominal pain. ??36.3, 168/78, 106, 18, 95%. ??Abdomen is soft nonperitoneal does have reproducible generalized tenderness.?? She is complaining subjectively of 10 out of 10 pain. ??Was given 6 mg of morphine and Zofran and IV fluids. ??On repeat exam she is continued to have pain was given additional 4 mg of morphine.?? There was mentioning that??Dilaudid has been the only pain medication that is helped her in the past??but she was agreeable to try morphine first.?? Given her extensive surgical history of the abdomen with diverticular disease and??colectomy??status post ileostomy with history of lysis of adhesions procedure SBO was high in the differential. ??Patient has a??contrast allergy, Noncon CT ended up showing no bowel obstruction??and otherwise looks normal.?? No significant leukocytosis.?? Lactate elevated at 3.2, likely reflects overall??dehydration in the setting of decreased p.o. intake recently secondary to symptoms. ??I do not feel that this necessarily reflects acute mesenteric ischemia, especially considering patient after pain medications looks very comfortable??is really in no acute distress. ??She did have some remaining pain that was treated with oral ibuprofen and IV Tylenol.?? Patient was monitored in the ER??for well over 4 hours.?? She clinically looks quite well states the Tylenol helped her pain the most. ??Will avoid opiates chronically as an outpatient as her symptoms are most likely secondary to??adhesions. ??Asurgical consult was obtained in the ER with Dr. Angulo,??in agreement with??overall plan??for discharge home if patient was able to tolerate p.o. liquids in the ER which she was in pain was controlled.?? Follow-up with surgical team as an outpatient. ??Discharged stable condition with return precautions to the ED. ??Patient states she has Tylenol ibuprofen at home. Procedure No Qualifying Data Assessment/Plan 1.??Intra-abdominal adhesions??K66.0 Ordered: Discharge Patient, 10/12/22 15:15:00 EDT, Home Independently, Constant Indicator ?? Patient Education Adhesions Follow Up With When Contact Information Follow up with specialist Within 1 month Additional Instructions: Medication Reconciliation Unchanged [id number] Milligrams. ?? aspirin (aspirin 81 mg oral capsule)1 Capsules Oral (given by mouth) every day. ?? clotrimazole-betamethasone dipropionate (clotrimazole-betamethasone dipropionate 1%-0.05% topical cream)1 Application Topical (on the skin) 2 times a day. Refills: 0. ?? diphenhydrAMINE (diphenhydrAMINE 25 mg oral capsule)2 Capsules Oral (given by mouth) every night atbedtime as needed as needed for insomnia. ?? empagliflozin (Jardiance 10 mg oral tablet)1 tab Oral (given by mouth) every morning. ?? exenatide (Bydureon Pen 2 mg subcutaneous injection, extended release)2 Milligrams Subcutaneous (under the skin) every week. ?? hydrOXYzine (hydrOXYzine hydrochloride 25 mg oral tablet)1 tab Oral (given by mouth) 3 times a day as needed as needed for anxiety. ?? isosorbide mononitrate (isosorbide mononitrate 60 mg oral tablet, extended release)1 tab Oral (given by mouth) every morning. ?? losartan (losartan 100 mg oral tablet)1 tab Oral (given by mouth) every day. ?? metoprolol (metoprolol succinate 50 mg oral capsule, extended release)1 Capsules Oral (given by mouth) 2 times a day. ?? omeprazole (omeprazole 20 mg oral delayed release capsule)1 Capsules Oral (given by mouth) 2 times a day. ?? ondansetron (!-Zofran ODT 4 mg oral tablet, disintegrating)1 tab Oral (given by mouth) every 8 hours as needed as needed for nausea/vomiting. ?? pravastatin (pravastatin 20 mg oral tablet)1 tab Oral (given by mouth) every night at bedtime. ?? traZODone ?? traZODone (traZODone 100 mg oral tablet)1 tab Oral every night at bedtime. Problem List/Past Medical History Ongoing Cardiac arrhythmia Chronic low back pain Chronic obstructive pulmonary disease Claustrophobia Constipation Coronary artery disease Crohn's disease Depression Diverticulitis GERD (gastroesophageal reflux disease) Hypercholesteremia Hypertension Insomnia Obesity Osteoarthritis of left knee Osteoporosis Parkinsons disease Type 2 diabetes mellitus Historical Fracture of toe Small bowel obstruction - partial Procedure/Surgical History ???Laparotomy (10/14/2020)???Knee arthroplasty (09/29/2018)???Arthroscopy of knee (02/08/2018)???Colostomy (06/15/2017)???Knee replacement (06/15/2014)???Brain stimulation (06/15/2012)???Surgery (06/2002)???Hysterectomy (1983) Medication Administration Given !-Zofran, 4 mg, IV Push ibuprofen, 800 mg, Oral morphine, 6 mg, IV Push morphine, 4 mg, IV Push NS bolus, 1000 mL, IV Piggyback Tylenol, 1000 mg, IV Piggyback Allergies penicillin??(Anaphylaxis) contrast media (iodine-based)??(Rash) Demerol??(Hives) Stadol??(Rash) Toradol??(Hives) Tylenol??(Petechiae) Valium codeine??(Hives) morphine??(Vomiting) Social History Alcohol Never Electronic Cigarette/Vaping Electronic Cigarette Use: Never. Home/Environment Lives with Spouse. Nutrition/Health Caffeine intake amount: Coffee/Cola: one daily. Sexual Sexually active: Yes. Other contraceptive use: None. Substance Use Never Tobacco Former tobacco user Tobacco Use:. quit 2012 per day. Family History Diabetes mellitus: Mother. Heart attack: Mother. Hypertension: Mother and Sister. Lung cancer: Father. Lab Results CBC and Differential?? LATEST RESULTS?? HISTORICAL RESULTS?? WBC?? 10/12/22 11:20?? 8.6?? 08/20/22?? 4.2 ??Low?? RBC?? 10/12/22 11:20?? 4.8?? 08/20/22?? 4.1?? Hgb?? 10/12/22 11:20?? 14.7?? 08/20/22?? 12.6?? Hct?? 10/12/22 11:20?? 44.7?? 08/20/22?? 39.6?? MCV?? 10/12/22 11:20?? 93.9?? 08/20/22?? 97.3 ??High?? MCH?? 10/12/22 11:20?? 30.9?? 08/20/22?? 31.0?? MCHC?? 10/12/22 11:20?? 32.9?? 08/20/22?? 31.8?? RDW-CV?? 10/12/22 11:20?? 12.9?? 08/20/22?? 13.4?? Platelets?? 10/12/22 11:20?? 256?? 08/20/22?? 188?? Neutro Auto?? 10/12/22 11:20?? 53.7?? 08/20/22?? 45.6?? Lymph Auto?? 10/12/22 11:20?? 33.1?? 08/20/22?? 38.8?? [place] Auto?? 10/12/22 11:20?? 7.5?? 08/20/22?? 9.0?? Eos, Auto?? 10/12/22 11:20?? 4.7?? 08/20/22?? 5.7?? Basophil Auto?? 10/12/22 11:20?? 0.6?? 08/20/22?? 0.7?? Imm Gran Auto?? 10/12/22 11:20?? 0.4?? 08/20/22?? 0.2?? Neutro Absolute?? 10/12/22 11:20?? 4.6?? 08/20/22?? 1.9? Routine Chemistry?? LATEST RESULTS?? HISTORICAL RESULTS?? Sodium Level?? 10/12/22 11:20?? 137?? 08/20/22?? 139?? Potassium Level?? 10/12/22 11:20?? 4.5?? 08/20/22?? 4.0?? Chloride Level?? 10/12/22 11:20?? 99?? 08/20/22?? 105?? CO2?? 10/12/22 11:20?? 26?? 08/20/22?? 25?? Alk Phos?? 10/12/22 11:20?? 70?? 08/18/22?? 62?? AST?? 10/12/22 11:20?? 43 ??High?? 08/18/22?? 23?? ALT?? 10/12/22 11:20?? 60 ??High?? 08/18/22?? 32?? BUN?? 10/12/22 11:20?? 18?? 08/20/22?? 15?? Glucose Level?? 10/12/22 11:20?? 108 ??High?? 08/20/22?? 133 ??High?? Creatinine Level?? 10/12/22 11:20?? 0.99?? 08/20/22?? 0.81?? eGFR AA?? 10/12/22 11:20?? 61?? 08/20/22?? 78?? eGFR Non-AA?? 10/12/22 11:20?? 61?? 08/20/22?? 78?? Calcium Level?? 10/12/22 11:20?? 9.5?? 08/20/22?? 8.2 ??Low?? Protein Total?? 10/12/22 11:20?? 8.3 ??High?? 08/18/22?? 7.8?? Albumin Level?? 10/12/22 11:20?? 4.3?? 08/18/22?? 3.9?? Bilirubin Total?? 10/12/22 11:20?? 0.4?? 08/18/22?? 0.3?? Lactic Acid Lvl?? 10/12/22 11:20?? 3.2 ??Critical?? 08/19/22?? 1.1?? Lipase Level?? 10/12/22 11:20?? 29?? 08/18/22?? 50?? Magnesium Level?? 10/12/22 11:20?? 1.8?? 08/20/22?? 2.1? UA Macroscopic?? LATEST RESULTS?? HISTORICAL RESULTS?? UA Color?? 10/12/22 11:20?? Yellow?? 08/18/22?? Yellow?? UA Appear?? 10/12/22 11:20?? Clear?? 08/18/22?? Clear?? UA Glucose?? 10/12/22 11:20?? 3+ Abnormal?? 08/18/22?? 3+ Abnormal?? UA Bili?? 10/12/22 11:20?? Negative?? 08/18/22?? Negative?? UA Ketones?? 10/12/22 11:20?? Negative?? 08/18/22?? Negative?? UA Spec Grav?? 10/12/22 11:20?? 1.020?? 08/18/22?? 1.015?? UA Blood?? 10/12/22 11:20?? Negative?? 08/18/22?? Trace Abnormal?? UA pH?? 10/12/22 11:20?? 5.5?? 08/18/22?? 5.5?? UA Protein?? 10/12/22 11:20?? Negative?? 08/18/22?? Negative?? UA Urobilinogen?? 10/12/22 11:20?? Normal?? 08/18/22?? Normal?? UA Nitrite?? 10/12/22 11:20?? Negative?? 08/18/22?? Negative?? UA Leuk Est?? 10/12/22 11:20?? Negative?? 08/18/22?? Negative? Infectious Disease?? LATEST RESULTS?? HISTORICAL RESULTS?? SARS-CoV-2 (COVID-19) RNA (ID Now)?? 10/12/22 11:20?? Not Detected?? 08/18/22?? Not Detected?? Employed in healthcare??? 10/12/22 11:20?? Unknown? Symptomatic as defined by CDC??? 10/12/22 11:20?? Unknown? In ICU??? 10/12/22 11:20?? Unknown? Group care resident??? 10/12/22 11:20?? Unknown? status??? 10/12/22 11:20?? Unknown? Electronically Signed on 10/12/22 03:17 PM Priyank Delgado MD Emergency department Discharge instructions * Priyank Delgado MD: PERFORM Event Display: ED Discharge Information Authored Date: [id number] MIRA BROWN :1950 Age:71 years Sex:Female Visit Date:10/12/2022 Primary Care Physician: Nikolas Matos DO Discharge Instructions We would like to thank you for allowing us to assist you with your healthcare needs. The following includes patient education materials and information regarding your injury/illness. Diagnosis from Today's Visit Intra-abdominal adhesions Discharge Vitals Temperature??(Temporal Artery) 97.3 ??F (36.3 ??C) Heart Rate??(Peripheral) 86 Heart Rate??(Monitored) 83 Respiratory Rate?? 17 Blood Pressure?? 139/118?? Height?? 60.24 in (153.000 cm) Weight??(Estimated) 162.95 lb (73.90 kg) Allergies penicillin??(Anaphylaxis) contrast media (iodine-based)??(Rash) Demerol??(Hives) Stadol??(Rash) Toradol??(Hives) Tylenol??(Petechiae) Valium codeine??(Hives) morphine??(Vomiting) What to Do Next Instructions from Your Care Team You can follow-up with general surgery Dr. Adan[facility]at [facility] by calling??[phone]. You Need to Schedule the Following Appointments Follow Up with??Follow up with specialist When:??Within 1 month You were treated today on an emergency basis; it may be gamez to contact your primary care provider to notify them of your visit today. You may have been referred to your regular doctor or a specialist, please follow up as instructed. If your condition worsens or you can't get in to see the doctor, contact the Emergency Department. Medications What How Much When Why Instructions Next Dose Unchanged amLODIPine 10 Milligrams Unchanged aspirin (aspirin 81 mg oral capsule) 1 Capsules Oral (given by mouth) Every day Unchanged clotrimazole-betamethasone dipropionate (clotrimazole-betamethasone dipropionate 1%-0.05%topical cream) 1 Application Topical (on the skin) 2 times a day Vulvar irritation Unchanged diphenhydrAMINE (diphenhydrAMINE 25 mg oral capsule) 2 Capsules Oral (given by mouth) Every night at bedtime as needed for as needed for insomnia Unchanged empagliflozin (Jardiance 10 mg oral tablet) 1 tab Oral (given by mouth) Every morning Unchanged exenatide (Bydureon Pen 2 mg subcutaneous injection, extended release) 2 Milligrams Subcutaneous (under the skin) Every week Unchanged hydrOXYzine (hydrOXYzine hydrochloride 25 mg oral tablet) 1 tab Oral (given by mouth) 3 times a day as needed for as needed for anxiety Unchanged isosorbide mononitrate (isosorbide mononitrate 60 mg oral tablet, extended release) 1 tab Oral (given by mouth) Every morning Unchanged losartan (losartan 100 mg oral tablet) 1 tab Oral (given by mouth) Every day Unchanged metoprolol (metoprolol succinate 50 mg oral capsule, extended release) 1 Capsules Oral (given by mouth) 2 times a day Unchanged omeprazole (omeprazole 20 mg oral delayed release capsule) 1 Capsules Oral (given by mouth) 2 times a day Unchanged ondansetron (!-Zofran ODT 4 mg oral tablet, disintegrating) 1 tab Oral (given by mouth) Every 8 hours as needed for as needed for nausea/vomiting Unchanged pravastatin (pravastatin 20 mg oral tablet) 1 tab Oral (given by mouth) Every night at bedtime Unchanged traZODone Unchanged traZODone (traZODone 100 mg oral tablet) See instructions 1 tab Oral every night at bedtime ?? Education Materials Adhesions Adhesions are stringy (fibrous) bands of tissue that stick together. They form between two surfacesof the body. Adhesions are similar to scars, but they form inside your body instead of on your skin. Adhesions can be painful and may cause problems if they pull tissues or organs out of their normal positions. They can also cause problems if they block the normal passage of substances in the body. For example, an adhesion that forms in the intestines can block the passage of food. What are the causes? This condition is caused by inflammation. Adhesions most often develop after surgery, but they can also develop after an infection, radiation treatment, or another event that causes inflammation in the body. What increases the risk? This condition is more likely to develop in: ? People who have had open surgery in the abdomen. ? Women who have had more than one section. What are the signs or symptoms? Symptoms of this condition vary depending on where the adhesions form. They may take weeks, months,or years to develop. Symptoms include: ? Pain in the abdomen or pelvis. This is the most common symptom. ? Bloating. ? Constipation. ? Diarrhea. ? Vomiting. ? Pain when having sex. ? Difficulty getting . Often, there are no symptoms. How is this diagnosed? This condition is diagnosed based on: ? Your symptoms. ? Your medical history. ? A physical exam. ? Tests, such as an X-ray or CT scan. ? A surgical procedure that uses a scope to check for adhesions inside your body. How is this treated? Treatment for this condition depends on where the adhesions are located and the symptoms they are causing. If there are no symptoms, treatment may not be needed. If there are symptoms, treatment may include: ? Taking medicines to help with symptoms. ? Having surgery to remove the adhesions. Follow these instructions at home: ? Take [id number] and prescription medicines only as told by your health care provider. ? If you were prescribed an antibiotic medicine, take it as told by your health care provider. Donot stop using the antibiotic even if you start to feel better. ? Follow any diet instructions your health care provider gives you. Your health care provider may recommend a liquid or low-fiber diet in specific cases. ? Keep all follow-up visits. This is important. Contact a health care provider if you have: ? A fever or chills. ? Pain in the abdomen or pelvis. ? Vomiting or bloating. ? Swelling in the abdomen. ? Loud bowel sounds. ? Constipation. Get help right away if: ? You have severe pain in your abdomen or pelvis, and the pain is getting worse. ? You have vomiting that will not go away. ? You cannot pass gas. ? You are unable to have a bowel movement. These symptoms may represent a serious problem that is an emergency. Do not wait to see if the symptoms will go away. Get medical help right away. Call your local emergency services (911 in the [place] Do not drive yourself to the hospital. Summary ? Adhesions are stringy (fibrous) bands of tissue that stick together. ? Adhesions can cause problems if they pull tissues or organs out of their normal positions. ? Symptoms include pain, bloating, vomiting, constipation, diarrhea, pain during sex, and difficulty getting . ? Treatment for this condition includes medicines and surgery. ? Take pzua-cmn-qhndxpy and prescription medicines only as told by your health care provider. This information is not intended to replace advice given to you by your health care provider. Make sure you discuss any questions you have with your health care provider. Document Revised: 02/08/2021 Document Reviewed: 02/08/2021 [employer] Patient Education ?? 2021 [employer] Tests Performed Medications and Immunizations Administered Given !-Zofran, 4 mg, IV Push ibuprofen, 800 mg, Oral morphine, 6 mg, IV Push morphine, 4 mg, IV Push NS bolus, 1000 mL, IV Piggyback Tylenol, 1000 mg, IV Piggyback Lab Test Name Test Result Date/Time WBC 8.6 x10^3/mcL 10/12/2022 11:20 EDT RBC 4.8 x10^6/mcL 10/12/2022 11:20 EDT Hgb 14.7 g/dL 10/12/2022 11:20 EDT Hct 44.7 % 10/12/2022 11:20 EDT MCV 93.9 10/12/2022 11:20 EDT MCH 30.9 pg 10/12/2022 11:20 EDT MCHC 32.9 g/dL 10/12/2022 11:20 EDT RDW-CV 12.9 % 10/12/2022 11:20 EDT Platelets 256 x10^3/mcL 10/12/2022 11:20 EDT Neutro Auto 53.7 % 10/12/2022 11:20 EDT Lymph Auto 33.1 % 10/12/2022 11:20 EDT [place] Auto 7.5 % 10/12/2022 11:20 EDT Eos, Auto 4.7 % 10/12/2022 11:20 EDT Basophil Auto 0.6 % 10/12/2022 11:20 EDT Imm Gran Auto 0.4 % 10/12/2022 11:20 EDT Neutro Absolute 4.6 x10^3/mcL 10/12/2022 11:20 EDT Sodium Level 137 mmol/L 10/12/2022 11:20 EDT Potassium Level 4.5 mmol/L 10/12/2022 11:20 EDT Chloride Level 99 mmol/L 10/12/2022 11:20 EDT CO2 26 mmol/L 10/12/2022 11:20 EDT Alk Phos 70 unit/L 10/12/2022 11:20 EDT AST 43 unit/L 10/12/2022 11:20 EDT ALT 60 unit/L 10/12/2022 11:20 EDT BUN 18 mg/dL 10/12/2022 11:20 EDT Glucose Level 108 mg/dL 10/12/2022 11:20 EDT Creatinine Level 0.99 mg/dL 10/12/2022 11:20 EDT eGFR AA 61 10/12/2022 11:20 EDT eGFR Non-AA 61 10/12/2022 11:20 EDT Calcium Level 9.5 mg/dL 10/12/2022 11:20 EDT Protein Total 8.3 g/dL 10/12/2022 11:20 EDT Albumin Level 4.3 g/dL 10/12/2022 11:20 EDT Bilirubin Total 0.4 mg/dL 10/12/2022 11:20 EDT Lactic Acid Lvl 3.2 mmol/L 10/12/2022 11:20 EDT Lipase Level 29 unit/L 10/12/2022 11:20 EDT Magnesium Level 1.8 mg/dL 10/12/2022 11:20 EDT UA Color YELLOW. 10/12/2022 11:20 EDT UA Appear CLEAR. 10/12/2022 11:20 EDT UA Glucose 3+ 10/12/2022 11:20 EDT UA Bili NEGATIVE 10/12/2022 11:20 EDT UA Ketones NEGATIVE 10/12/2022 11:20 EDT UA Spec Grav 1.020 10/12/2022 11:20 EDT UA Blood NEGATIVE 10/12/2022 11:20 EDT UA pH 5.5 10/12/2022 11:20 EDT UA Protein NEGATIVE 10/12/2022 11:20 EDT UA Urobilinogen 0.2 Uro 10/12/2022 11:20 EDT UA Nitrite NEGATIVE 10/12/2022 11:20 EDT UA Leuk Est NEGATIVE 10/12/2022 11:20 EDT SARS-CoV-2 (COVID-19) RNA (ID Now) Not Detected 10/12/2022 11:20 EDT Employed in healthcare? Unknown 10/12/2022 11:20 EDT Symptomatic as defined by CDC? Unknown 10/12/2022 11:20 EDT In ICU? Unknown 10/12/2022 11:20 EDT Group care resident? Unknown 10/12/2022 11:20 EDT status? 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 Manager Name: 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 Manager Signature: Relationship to Patient: Witness Name/Signature: Date: Electronically Signed on: 10/12/2022 15:17 EDTSigned by:[facility] Emergency department Note * Dee Adams: PERFORM Event Display: ED Notes Authored Date: [id number] Patient Care team information Care Team Personnel Name: Nikolas Matos DO Position: No Access Member Role: Informed Provider Address: Address: [address] [place] [id number] Name: Priyank Delgado MD Position: Physician Member Role: ED Physician Address: Address: [facility] [address] [place] [id number] Name: Federico Soto RN Position: Nurse Member Role: ED Nurse Care Team Related Persons Name: ÁNGEL BROWN Address: Home [address] [place] [phone]
--- OUTSIDE RECORDS SUMMARY | 2024-02-29 19:13 | XMS_ITS | Continuity of Care Document ---
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 Name Role Phone Nikolas Kim Primary Care Physician [phone] Encounter [facility] Date(s): 10/13/22 - 10/16/22 [facility] [address] [place] [address] Encounter Diagnosis Mechanical deep vein thrombosis (DVT) prophylaxis in place(Discharge Diagnosis) - 10/14/22 Hypertension(Discharge Diagnosis) - 10/13/22 Chronic obstructive pulmonary disease(Discharge Diagnosis) - 10/13/22 Type 2 diabetes mellitus(Discharge Diagnosis) - 10/13/22 Coronary artery disease(Discharge Diagnosis) - 10/13/22 GERD (gastroesophageal reflux disease)(Discharge Diagnosis) - 10/13/22 Small bowel obstruction - partial(Discharge Diagnosis) - 10/13/22 Cardiac arrhythmia(Discharge Diagnosis) - 10/13/22 Discharge Disposition: Left Against Medical Advice Attending Physician: Jovany Pedro MD Admitting Physician: Maddie Sun Allergies, Adverse Reactions, Alerts Substance Reaction Severity Status codeine Hives Unknown Active penicillin Anaphylaxis Severe Active morphine Vomiting Unknown Active Demerol Hives Unknown Active Toradol Hives Unknown Active Stadol Rash Unknown Active Valium Unknown Active Tylenol Petechiae Unknown Active contrast media (iodine-based) Rash Mild Active Functional Status 10/15/22 ADLs Independent Activity Status ADL Up to gerichair, Up to toilet, Bed in chair position Personal Care Provided Bed bath, Chlorhexadine Wipes, Shampoo, Other: shampoo cap 10/13/22 Living Environment No Living Environmen t Information Available Lives In Multilevel home Lives With Spouse Living Situation Home independently Home Barriers None Patient's Responsibilities Driving, Housework, Laundry, Meal preparation, Personal ADL, Shopping Home Equipment Other: BP Machine 10/13/22 History of Falls Within last three mo [facility] Family Member Travel History No recent t [...] 10 years 2Result Comment: Zoster/Shingles Vaccine Medications Advair Diskus 250 mcg-50 mcg inhalation powder 1 puffs, Inhale, BID, # 60 EA, 0 Refill(s) Start Date: 10/13/22 Status: Ordered amLODIPine 10 mg oral tablet 10 mg = 1 tab, Oral, Daily, # 30 tab, 0 Refill(s) Start Date: 10/13/22 Status: Ordered aspirin 81 mg oral capsule 81 mg = 1 cap, Oral, Daily, 0 Refill(s) Start Date: 06/18/22 Status: Ordered clotrimazole-betamethasone dipropionate 1%-0.05% topical cream 1 erica, Topical, BID, # 45 g, 0 Refill(s), Pharmacy: [id number] Start Date: 08/05/22 Status: Ordered diphenhydrAMINE 25 mg oral capsule 50 mg = 2 cap, Oral, every day at bedtime, PRN as needed for insomnia, # 30 cap, 0 Refill(s) Start Date: 06/18/22 Status: Ordered docusate sodium 250 mg oral capsule 250 mg = 1 cap, Oral, every night at bedtime, PRN as needed for constipation, # 20 cap, 0 Refill(s) Start Date: 10/13/22 Status: Ordered hydrOXYzine hydrochloride 25 mg oral [...] 0 Refill(s) Start Date: 08/19/22 Status: Ordered metFORMIN 1000 mg oral tablet 1,000 mg = 1 tab, Oral, BID, # 60 tab, 0 Refill(s) Start Date: 10/13/22 Status: Ordered metoprolol succinate 50 mg oral [...] 0 Refill(s) Start Date: 06/18/22 Status: Ordered QUEtiapine 50 mg oral tablet, extended release 50 mg = 1 tab, Oral, BID, 0 Refill(s) Start Date: 10/13/22 Status: Ordered traZODone 100 mg oral tablet 100 mg = 1 tab, Oral, every night at bedtime, 0 Refill(s) Start Date: 06/18/22 Status: Ordered Xopenex HFA 45 mcg/inh inhalation aerosol 2 puffs, Inhale, every 4 hr, PRN as needed for wheezing, # 15 g, 0 Refill(s) Start Date: 10/13/22 Status: Ordered Problem List Condition Confirmation Course [...] Compl eted Surgery 6 06/14/02 Completed Hysterectomy 1984 Completed 1Exploratory 2With Lysis of Adhesions 3Left knee 4With reversal. History of Crohn's Disease, frequent small bowel obstructions. 5Implantation of electronic stimulator in brain 6Lumbar Spine Surgery Results Laboratory List Name Date Glucose POCT 10/16/22 Glucose POCT 10/16/22 Glucose POCT 10/16/22 Automated Diff 10/16/22 CBC w/ Diff 10/16/22 Comprehensive Metabolic Panel (CMP) CBC w/ Diff 10/15/22 Comprehensive Metabolic Panel (CMP) Automated Diff 10/15/22 CBC w/ Diff 10/14/22 Comprehensive Metabolic Panel (CMP) Magnesium Level 10/14/22 Automated Diff 10/14/22 Lactic Acid 10/13/22 Magnesium Level 10/13/22 SARS-CoV-2 (COVID-19) RNA (ID Now) 3 Lactic Acid 10/13/22 Lipase Level 10/13/22 Magnesium Level 10/13/22 Most recent to oldest [Reference Range]: 1 2 3 WBC [5.0-10.0 x10^3/mcL] 4.6 x10^3/mcL *LOW* (10/16/22 7:00 AM) 6.3 x10^3/mcL (10/15/22 8:58 AM) 4.4 x10^3/mcL *LOW* (10/14/22 6:52 AM) RBC [4.1-5.3 x10^6/mcL] 3.8 x10^6/mcL *LOW* (10/16/22 7:00 AM) 4.0 x10^6/mcL *LOW* (10/15/22 8:58 AM) 4.4 x10^6/mcL (10/14/22 6:52 AM) Neutro Auto [40.0-75.0 %] 53.2 % (10/16/22 7:00 AM) 56.0 % (10/15/22 8:58 AM) 78.5 % *HI* (10/13/22 7:00 AM) Lymph Auto [20.0-50.0 %] 29.2 % (10/16/22 7:00 AM) 28.3 % (10/15/22 8:58 AM) 12.0 % *LOW* (10/13/22 7:00 AM) [place] Auto [2.0-15.0 %] 11.4 % (10/16/22 7:00 AM) 11.9 % (10/15/22 8:58 AM) 8.1 % (10/13/22 7:00 AM) Basophil Auto [0.0-1.0 %] 0.7 % (10/16/22 7:00 AM) 0.5 % (10/15/22 8:58 AM) 0.5 % (10/13/22 7:00 AM) BUN [7-18 mg/dL] 15 mg/dL (10/16/22 7:00 AM) 16 mg/dL (10/15/22 8:58 AM) 19 mg/dL *HI* (10/14/22 6:52 AM) Glucose POC [74-106 mg/dL] 153 mg/dL *HI* (10/16/22 7:51 PM) 96 mg/dL (10/16/22 4:08 PM) 110 mg/dL *HI* (10/16/22 11:48 AM) Glucose Level [74-106 mg/dL] 133 mg/dL *HI* (10/16/22 7:00 AM) 87 mg/dL (10/15/22 8:58 AM) 133 mg/dL *HI* (10/14/22 6:52 AM) Potassium Level [3.5-5.1 mmol/L] 3.7 mmol/L (10/16/22 7:00 AM) 3.7 mmol/L (10/15/22 8:58 AM) 3.4 mmol/L *LOW* (10/14/22 6:52 AM) MCV [80.0-96.0 fL] 96.8 fL *HI* (10/16/22 7:00 AM) 95.2 fL (10/15/22 8:58 AM) MCV [80.0-96.0] 94.6 (10/14/22 6:52 AM) AST [15-37 unit/L] 17 unit/L (10/16/22 7:00 AM) 18 unit/L (10/15/22 8:58 AM) 20 unit/L (10/14/22 6:52 AM) ALT [14-59 unit/L] 25 unit/L (10/16/22 7:00 AM) 29 unit/L (10/15/22 8:58 AM) 39 unit/L (10/14/22 6:52 AM) MCHC [31.0-35.0 g/dL] 31.4 g/dL (10/16/22 7:00 AM) 31.9 g/dL (10/15/22 8:58 AM) 32.1 g/dL (10/14/22 6:52 AM) Sodium Level [136-145 mmol/L] 140 mmol/L (10/16/22 7:00 AM) 140 mmol/L (10/15/22 8:58 AM) 139 mmol/L (10/14/22 6:52 AM) Hct [37.0-47.0 %] 36.3 % *LOW* (10/16/22 7:00 AM) 37.9 % (10/15/22 8:58 AM) 42.0 % (10/14/22 6:52 AM) Lipase Level [16-77 unit/L] 25 unit/L (10/13/22 2:15 AM) Calcium Level [8.5-10.1 mg/dL] 7.8 mg/dL *LOW* (10/16/22 7:00 AM) 7.7 mg/dL *LOW* (10/15/22 8:58 AM) 8.0 mg/dL *LOW* (10/14/22 6:52 AM) Albumin Level [3.4-5.0 g/dL] 2.7 g/dL *LOW* (10/16/22 7:00 AM) 3.0 g/dL *LOW* (10/15/22 8:58 AM) 3.5 g/dL (10/14/22 6:52 AM) Protein Total [6.4-8.2 g/dL] 6.2 g/dL *LOW* (10/16/22 7:00 AM) 6.5 g/dL (10/15/22 8:58 AM) 6.9 g/dL (10/14/22 6:52 AM) MCH [26.0-32.0 pg] 30.4 pg (10/16/22 7:00 AM) 30.4 pg (10/15/22 8:58 AM) 30.4 pg (10/14/22 6:52 AM) Magnesium Level [1.8-2.4 mg/dL] 2.3 mg/dL (10/14/22 6:52 AM) 1.5 mg/dL *LOW* (10/13/22 7:00 AM) 1.8 mg/dL (10/13/22 2:15 AM) Neutro Absolute 2.4 x10^3/mcL *NA* (10/16/22 7:00 AM) 3.5 x10^3/mcL *NA* (10/15/22 8:58 AM) 6.7 x10^3/mcL *NA* (10/13/22 7:00 AM) Bilirubin Total [0.2-1.0 mg/dL] 0.5 mg/dL (10/16/22 7:00 AM) 0.4 mg/dL (10/15/22 8:58 AM) 0.5 mg/dL (10/14/22 6:52 AM) Hgb [12.0-16.0 g/dL] 11.4 g/dL *LOW* (10/16/22 7:00 AM) 12.1 g/dL (10/15/22 8:58 AM) 13.5 g/dL (10/14/22 6:52 AM) Alk Phos [46-146 unit/L] 50 unit/L (10/16/22 7:00 AM) 51 unit/L (10/15/22 8:58 AM) 58 unit/L (10/14/22 6:52 AM) Platelets [130-450 x10^3/mcL] 158 x10^3/mcL (10/16/22 7:00 AM) 174 x10^3/mcL (10/15/22 8:58 AM) 204 x10^3/mcL (10/14/22 6:52 AM) CO2 [21-32 mmol/L] 23 mmol/L (10/16/22 7:00 AM) 25 mmol/L (10/15/22 8:58 AM) 29 mmol/L (10/14/22 6:52 AM) Lactic Acid Lvl [0.7-2.0 mmol/L] 1.9 mmol/L (10/13/22 7:00 AM) 2.6 mmol/L 1 *CRIT* (10/13/22 2:15 AM) eGFR Non-AA [>=60] 91 (10/16/22 7:00 AM) 88 (10/15/22 8:58 AM) 73 (10/14/22 6:52 AM) eGFR AA [>=60] 91 (10/16/22 7:00 AM) 88 (10/15/22 8:58 AM) 73 (10/14/22 6:52 AM) Chloride Level [98-107 mmol/L] 105 mmol/L (10/16/22 7:00 AM) 103 mmol/L (10/15/22 8:58 AM) 101 mmol/L (10/14/22 6:52 AM) RDW-CV [11.7-17.0 %] 12.9 % (10/16/22 7:00 AM) 12.9 % (10/15/22 8:58 AM) 13.0 % (10/14/22 6:52 AM) Imm Gran Auto [0.0-0.9 %] 1.1 % *HI* (10/16/22 7:00 AM) 0.6 % (10/15/22 8:58 AM) 0.5 % (10/13/22 7:00 AM) Creatinine Level [0.55-1.02 mg/dL] 0.71 mg/dL (10/16/22 7:00 AM) 0.73 mg/dL (10/15/22 8:58 AM) 0.86 mg/dL (10/14/22 6:52 AM) SARS-CoV-2 (COVID-19) RNA (ID Now) [Not Detected] Not Detected (10/13/22 4:10 AM) Eos, Auto [1.0-6.0 %] 4.4 % (10/16/22 7:00 AM) 2.7 % (10/15/22 8:58 AM) 0.4 % *LOW* (10/13/22 7:00 AM) 1Result Comment: Called to and verbally verified by Isaiah Luther at 10/13/2022 02:26:28 EDT. Vital Signs Most recent to oldest [Reference Range]: 1 2 3 Temperature Temporal Artery [36-38 Deg C] 37.2 Deg C (10/16/22 6:29 PM) 37 Deg C (10/16/22 2:53 PM) 36.1 Deg C (10/16/22 10:40 AM) Peripheral Pulse Rate [60-100 bpm] 93 bpm (10/16/22 6:29 PM) 84 bpm (10/16/22 2:53 PM) 85 bpm (10/16/22 10:40 AM) Respiratory Rate [12-24 br/min] 18 br/min (10/16/22 6:29 PM) 18 br/min (10/16/22 2:53 PM) 18 br/min (10/16/22 10:40 AM) Blood Pressure [90-140/60-90 mmHg] 148/58mmHg *HI* (10/16/22 6:29 PM) 133/57mmHg (10/16/22 2:53 PM) 106/48mmHg (10/16/22 10:40 AM) Mean Arterial Pressure Cuff 81 mmHg (10/16/22 6:29 PM) 78 mmHg (10/16/22 2:53 PM) 64 mmHg (10/16/22 10:40 AM) Blood Pressure Location Left arm (10/15/22 2:20 AM) Left arm (10/14/22 10:40 PM) Left arm (10/14/22 6:23 PM) Blood Pressure Method Automatic (10/15/22 2:20 AM) Automatic (10/14/22 10:40 PM) Automatic (10/14/22 6:23 PM) Mean Arterial Pressure Invasive 79 mmHg (10/15/22 10:46 PM) Weight 75.7 kg (10/15/22 7:05 AM) 74.4 kg (10/13/22 10:30 AM) 74.7 kg (10/13/22 7:11 AM) Weight Measured (lbs) 166.89 lb (10/15/22 7:05 AM) Weight Dosing 76.80 kg (10/13/22 2:03 AM) Usual Weight 77 kg (10/13/22 5:53 AM) Weight Estimated 76.80 kg (10/13/22 1:54 AM) Height/Length Dosing 158.000 cm (10/13/22 2:03 AM) Height/Length Estimated 158.000 cm (10/13/22 1:54 AM) Social History Social History Type Response Tobacco Former tobacco user Tobacco Use:. quit 2011 per day. 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 criteria (IQ) is confidential and proprietary information and is being provided to you solely as it pertains to the information requested. IQ may contain advanced clinical knowledge whichwe recommend you discuss with your physician upon disclosure to you. Use permitted by and subject to license with [employer] and/or one of its subsidiaries. IQ reflects clinical interpretations and analyses and cannot alone either (a) resolve medical ambiguities of particular situations;or (b) provide the sole basis for definitive decisions. IQ is intended solely for use as screening guidelines with respect to medical appropriateness of healthcare services. All ultimate care decisions are strictly and solely the obligation and responsibility of your health care provider. ?? 2022 [employer] and/or one of its subsidiaries. All Rights Reserved. CPT?? only ?? [employer]. All Rights Reserved. Review Outcome: Acute Met Other InterQual [X] Select Day, One: [X] Episode Day 1, All: [X] ACUTE, One: [X] Bowel obstruction confirmed by imaging and, Both: [X] NPO or NG tube to suction [X] IV fluid, One: [X] ??? 75 mL/h and, ??? One: [X] Age ??? 66 EKG study * Event Display: Telemetry Strips Please click on link to view image. * Event Display: Telemetry Strips Please click on link to view image. * Event Display: Telemetry Strips Please click on link to view image. Pharmacology Progress note * Radha Carrillo PharmD: PERFORM Event Display: Pharmacy Progress Note Authored Date: [id number] Pharmacy Progress Note Med history updated with [facility], [facility] in [place], and [facility] in [place] Electronically Signed on 10/13/22 03:19 PM Radha Carrillo PharmD Respiratory therapy Hospital Progress note * Moni Ncihole: PERFORM, MODIFY Event Display: Respiratory Therapy Progress Note Authored Date: [id number] ??KAE BROWN 71 Years MEASURED Body Mass Index: 30.44 kg/m2 (08/05/22 13:39:00) BSA Measured: 1.83 m2 (08/05/22 13:39:00) Height: 158 cm (08/05/22 13:39:00) Weight: 75.7 kg (10/15/22 07:05:00) DOSING Height/Length Dosin cm (10/13/22 02:03:48) Weight Dosin.8 kg (10/13/22 02:03:48) Respiratory Shift Summary Breath Sounds: Clear Shift Treatments: Symbicort Shift Events: Pt a/o just getting back to bed from BR. Pt stating I need my inhaler I can't breathe. Pt is able to speak full sentences, has even unlabored respirations, and clear BS. SpO2 on RA 94%. Pt refused to use spacer or rinse her mouth. NAD noted, will continue to monitor. Respiratory Protocol??Aerosol Therapy Assessment and Scoring Home Medication Routine: Lung History (1) Smoking history less than 1 pack/day, History of lung disease(Asthma) Breath Sounds (0) Clear in all pearl Respiratory Rate (0) Less than or equal to 18 Modified Rosaline Scale or Observed Dyspnea (1) 1-2 With exertion Oxygen Therapy (0) Room air, at baseline home O2, post-op, or CHF Home Respiratory Medications (2) Rescue MDI or Neb greater than 1 time per week and/or controller medication(s) daily Inhaler Use Assessment ? Clinically Stable? Yes? Can take a slow deep breath on command? Yes? Can perform a 3 second breath hold? Yes Respiratory total Score: 4 Respiratory Guidelines 3-4 pts - Q6 PRN for SOB Electronically Signed on 10/16/22 09:15 PM Moni Nichole * Daisy Li: PERFORM, MODIFY Event Display: Respiratory Therapy Progress Note Authored Date: [id number] ??KAE BROWN 71 Years Assessment: diminished breath sounds on left clear on right fine inspiratory crackles in LLL. 93% on Room air Treatments: symbicort 2 puffs pt rinsed out mouth post tx Plan: continue with maintenance inhalers Respiratory Aerosol Therapy Assessment and Scoring Home Medication Routine: advair BID Lung History (1) Smoking history less than 1 pack/day, History of lung disease(Asthma) Breath Sounds (1) Clear to slightly diminished or crackles in bases Respiratory Rate (0) Less than or equal to 18 Modified Rosaline Scale or Observed Dyspnea (0) None Oxygen Therapy (0) Room air, at baseline home O2, post-op, or CHF Home Respiratory Medications (2) Rescue MDI or Neb greater than 1 time per week and/or controller medication(s) daily Inhaler Use Assessment ? Clinically Stable? Yes? Can take a slow deep breath on command? Yes? Can perform a 3 second breath hold? Yes Respiratory total score: 4 Respiratory Guidelines 3-4 pts - Q6 PRN for SOB Electronically Signed on 10/16/22 05:36 PM Daisy Li * Wing Astorga: PERFORM Event Display: Respiratory Therapy Progress Note Authored Date: [id number] ??KAE BROWN 71 Years MEASURED Body Mass Index: 30.44 kg/m2 (08/05/22 13:39:00) BSA Measured: 1.83 m2 (08/05/22 13:39:00) Height: 158 cm (08/05/22 13:39:00) Weight: 76.8 kg (08/20/22 06:45:39) DOSING Height/Length Dosin cm (10/13/22 02:03:48) Weight Dosin.8 kg (10/13/22 02:03:48) Respiratory Shift Summary Breath Sounds: Clear Shift Treatments: PRN O2 Shift Events: None Respiratory Protocol??Aerosol Therapy Assessment and Scoring Lung History (1) Smoking history less than 1 pack/day, History of lung disease(Asthma) Breath Sounds (0) Clear in all pearl Respiratory Rate (0) Less than or equal to 18 Modified Rosaline Scale or Observed Dyspnea (0) None Oxygen Therapy (1) 1-2 L/min Home Respiratory Medications (0) None Inhaler Use Assessment ? Clinically Stable? Yes? Can take a slow deep breath on command? Yes? Can perform a 3 second breath hold? Yes Respiratory total Score: 2 Respiratory Guidelines 0-2 pts - No Therapy indicated Electronically Signed on 10/13/22 05:06 AM Wing Astorga Physician Emergency department Note * Jose Elias Henderson MD: PERFORM Event Display: ED Note Physician Authored Date: KAE BROWN Sana :1950 Age:71 years Sex:Female Visit Date:10/13/2022 Primary Care Physician: Nikolas Matos DO HPI 71-year-old female with history of COPD, cardiac arrhythmia, constipation, claustrophobia, CAD, Crohn???s disease, Parkinson???s disease, DM II, colectomy s/p ileostomy with a history of lysis of adhesions, and bowel obstructions presents??for evaluation of recurrent/worsening left upper quadrant pain that appears to be nonradiating and is accompanied by nausea and vomiting, patient continues pass flatus but denies passing stool since her evaluation. No fevers or chills. ?? M/S/F/SocHx notable for: please see HPI; remainder reviewed with patient and in chart.? ROS: Negative constitutional, eye, cardiovascular, pulmonary, GI, , MSK, skin, neurologic, psychiatric, endocrine unless noted in the HPI. ?? Exam HR 104, BP 158/88, RR 22, T 36.7?C, SaO2 94 % on room air. Gen:??Pleasant, non-toxic appearing, resting comfortably. HEENT: NC, AT, PEERL, EOMI. Resp: Clear to auscultation bilaterally, normal work of breathing, no accessory muscle usage. Card: Regular rate and rhythm with no murmurs, rubs, or gallops, extremities warm and well perfused.?? GI: Non-tender to palpation throughout all quadrants, non-distended, no rebound or guarding. : No suprapubic tenderness to palpation. MSK: No visible deformities, strength and tone without visually appreciable deficit. Skin: Normal color with no visible lesions. Neuro: alert and oriented?3, no facial asymmetry, vision and hearing WNL. Psych: Mood and affect appropriate. ?? Labs?? WBC 8.6, Hb 15.6, Na one 36, K 4.3, AST 34, ALT 50, ALP 76, total bilirubin 0.4, lipase 25,??lacticacid 2.6.? Imaging CT abdomen/pelvis: 1.??Moderate dilation of the distal small bowel at the level of the anastomosis, with fecalization of contents (series 2, image 514), mild gas and fluid dilation of multiple small bowel loops proximal to this segment. Findings compatible with small bowel obstruction, at the level of the small bowel anastomosis within the upper pelvis.??Recommend surgical evaluation. 2.??Mild wall thickening of the terminal ileum, with minimal adjacent fat stranding, possibly ileitis.?? 3.??Mild bilateral hydronephrosis and proximal hydroureter, without obstruction identified.? MDM Previous chart, nursing note, labs, imaging, and vitals reviewed.?? A:??71-year-old female with history of COPD, cardiac arrhythmia, constipation, claustrophobia, CAD,Crohn???s disease, Parkinson???s disease, DM II, colectomy s/p ileostomy with a history of lysis ofadhesions, and bowel obstructions presents??for evaluation of recurrent/worsening left upper quadrant pain that appears to be nonradiating and is accompanied by nausea and vomiting, patient continuespass flatus but denies passing stool since her evaluation ?? DDx: obstruction, partial obstruction, dehydration, electrolyte abnormalities, mesenteric ischemia,gastroenteritis, diverticulitis. ?? Evaluation: patient with a small bowel obstruction, no evidence of clinically significant electrolyte abnormalities or mesenteric ischemia at the time of the patient???s ED evaluation. Above evaluation without evidence of the remainder of the differential. ?? ED Course:?patient given 1 L NS, 0.6 mg hydromorphone, and then 1 mg hydromorphone for analgesia, 8 mg Zofran given for nausea. ?04:16 - discussed case with Dr. Angulo, patient appropriate for admission to the hospital service, Dr. Angulo will evaluate the patient shortly.?Patient declined NG tube. ?? Disposition: patient admitted to the hospitalist. ?? Impression: small bowel obstruction. ?? (please reference below for remainder of encounter information) Critical Care Time Organ system(s): GI. Intervention: Assessment of the patient, interpretation of studies, communication related to patient care. Time: 30 minutes were spent directly related to patient care exclusive of separately billed procedures Electronically Signed on 10/13/22 04:20 AM Jose Elias Henderson MD Physical therapy Progress note * Johana Frederick PT: PERFORM Event Display: Physical Therapy Progress Note Authored Date: [id number] Patient ID and date of checked: ??yes *Current Level of Care: In-Patient *Admitting Diagnosis: ??SBO Partial with surgical intervention cardiac Arrhythmia COPD *Therapy Diagnosis: ??declining mobility Subjective: Patient is much more alert this morning and more cooperative. She would like to take a short walk however she still refuses gait aid use. She agrees to work for short period of time due to fatigue today. Pertinent Medical History: ??Cardiac arrhythmia Chronic low back pain Chronic obstructive pulmonary disease Claustrophobia Constipation Coronary artery disease Crohn's disease Depression Diverticulitis GERD (gastroesophageal reflux disease) Hypercholesteremia Hypertension Insomnia Obesity Osteoarthritis of left knee Osteoporosis Parkinsons disease Type 2 diabetes mellitus Case History Case History: 71 y/o female admitted through ED with symptoms consistent with history of SBO. Patient currently has an NG tube in place and is being followed by surgery. She continues tohave abdominal pain and nausea. She is in bed when PT arrives and agrees to work with services. Shereports she will not use a walker or a cane and she does not want home services nor short term rehab placement. She is marginally cooperative. She has had pain medication prior to PT arrival and nursing reports this is not her baseline behavior. Pain: none reported Bed Mobility: Activity Assistance Comments Rolling ??I ??HOB Elevated no use of rails Scooting/Repositioning ??I Supine to Sit ??I Sit to Supine Transfers: Activity Assistive Device Assistance Comments Sit to Stand ??NONE ??SBA ??MIN INSTABILITY Stand to Sit ??NONE ??SBA ??MIN INSTABILITY Bed to Chair ??NONE ??SBA ??MIN INSTABILITY Chair to Bed Shower Transfer Toilet Transfer Ambulation: Assistance Assistive Device Distance Comments ??SBA ??NONE ??25' x 1 ??MINIMAL INSTABILITY TO MODERATE INSTABILITY DID DEMONSTRATE IMPULSIVITY WITH MOBILITY AND TRANSFER WAS OFFERED VERBAL CUES S *Procedure Documentation: CPT 68144: Gait Training:? 20?? minutes Gait and/or stair training to promote improved sequencing, safety and movement quality for functional mobility. Treatment techniques utilized today included: gait and transfer training with safety instruction *Patient Education: safety in gait with movement planning *Physical Therapy Assessment: ??Patient was more focused this session however she continues to decline gait aid despite having difficulty and limitation with ambulation. Currently Patient does require moderate supervision in some activity such as mobilization to be safe in her environment. She demonstrates much improvement from yesterday. Patient would benefit from home health services however atthis time she declines and feels she can go home independently without any help. PT will continue to work with Patient to attempt to have her safe and independent for home going by discharge Goal Updates: ??progressing *PT Plan of Care: ??continue *Total Time: ??20 minutes *Time In: ??1030am *Time Out: 1050am Electronically Signed on 10/16/22 02:00 PM Johana Frederick PT * Johana Frederick PT: PERFORM, MODIFY, MODIFY, MODIFY, MODIFY Event Display: Physical Therapy Progress Note Authored Date: [id number] Patient ID and date of checked: ??yes *Current Level of Care: In-Patient *Admitting Diagnosis: ??SBO Partial with surgical intervention cardiac Arrhythmia COPD *Therapy Diagnosis: ??declining mobility Pertinent Medical History: ??Cardiac arrhythmia Chronic low back pain Chronic obstructive pulmonary disease Claustrophobia Constipation Coronary artery disease Crohn's disease Depression Diverticulitis GERD (gastroesophageal reflux disease) Hypercholesteremia Hypertension Insomnia Obesity Osteoarthritis of left knee Osteoporosis Parkinsons disease Type 2 diabetes mellitus *Subjective: 71 y/o female admitted through ED with symptoms consistent with history of SBO. Patient currently has an NG tube in place and is being followed by surgery. She continues to have abdominal pain and nausea. She is in bed when PT arrives and agrees to work with services. She reports she will not use a walker or a cane and she does not want home services nor short term rehab placement. She is marginally cooperative. She has had pain medication prior to PT arrival and nursing reports this is not her baseline behavior. 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 She reports she is not interested in community activity and does not involve with friends t: *Current Level of Function: see below Pain: ??does not rate pain Cognition: ?? Attention: normal ?Communication: agitated ?Follows Commands: agitated ?Insights into Deficits:poor ?Level of Consciousness: alert ?Orientation: X 3 ?Safety Awareness: poor Bed Mobility: Activity Assistance Comments Rolling ??I ??HOB elevated however does not use rails Scooting/Repositioning ??I Supine to Sit ??I Sit to Supine ??I Transfers: Activity Assistive Device Assistance Comments Sit to Stand ??NONE ??SBA ??Minimal instability Stand to Sit ??NONE ??SBA ??Minimal Instability Bed to Chair ??NONE ??SBA ??With nursing observed minimal instability Chair to Bed Shower Transfer Toilet Transfer Ambulation: Assistance Assistive Device Distance Comments ??SBA TO CGA ??NONE ??35' x 1 ??Patient had high to moderate instability and lost balance with PT to assist with recovery. She became very agitated and denied lob X 2 nursing assisted to help Patient back to bed and she refused further participation and remained in an agitated state Stairs: Assistance Assistive Device # Steps Comments ??not attempted *Patient Education: ??Patient declined recommendations and education though they were relayed to her *Physical Therapy Assessment: ??71 y/o woman with limited participation today appears to have a level of confusion and agitation. Patient demonstrates a disability score of 40% on [facility] functional assessment tool indicative of a moderate impairment. Concerns are that she demonstrates poor safety awareness and at this time would require full supervision to be safe in her environment. PT recommends that we attempt to continue working with her despite her agitation as she demonstrates safety concerns and would benefit from services if she would consider participation. *Rehab Potential: Fair?to reach the established goals *Short Term Goals?time frame: ??defer *Penitentiary Goals?time frame: Length of stay Patient to ambulate 200' X 1 safely and independently Patient to navigate 2 stairs safely and independently *Patient Goals: ??none stated PT Plan of Care (as per below) *Treatment Duration: length of stay *Treatment Frequency: QD thursday through thursday *Treatment Intensity: ??30 minutes *Planned Treatment Interventions: ??x CPT 11247: Therapeutic Exercise ??Balance and strength training exercises ??x CPT 17708: Therapeutic Activity Safety education ??x CPT 87678: Gait Training ??gait safety and encourage gait aid at this time CPT 64891: Neuromuscular Re-education ??x CPT 45292: Self-Care/Home Management ??family training if needed CPT 89667: Manual Therapy CPT 60799: Ultrasound CPT G0283: Electrical Stimulation CPT 54855: Initial Orthotic Fit/Train CPT 98424: Initial Prosthetic Train CPT 01752:??Subsequent??Orthotic??Check CPT 85901:??Wheelchair??Management??Training *Discharge Plan:?Upon meeting therapy goals, max therapy benefit, or discharge from facility. *Evaluation Procedure Documentation: CPT 00931: Low Complexity PT Evaluation:?15?? minutes Physical Therapy Evaluation performed. History involves 3 or more personal factors and/or comorbidities. Examination of body system(s) includes 1-2 elements. Clinical presentation is stable. Clinical decision making is low. *Total Time: 15 minutes *Time In: ??1100am *Time Out: 1115am Electronically Signed on 10/15/22 12:05 PM Johana Frederick Michael PT * Carmelo Roman PT, DPT: PERFORM Event Display: Physical Therapy Progress Note Authored Date: [id number] Kae reports she is not getting up today for a PT evaluation today. She reports every time she gets up from bed she gets very nauseous. She reports she threw up on yesterday each time she sat or stood up. Despite encouragement as well as offer to attempt later, pt declines participation today. Will attempt evaluation tomorrow if appropriate. -Carmelo Roman PT, DPT Electronically Signed on 10/14/22 09:23 AM Carmelo Roman PT, DPT Progress note * Syed Ravi DO: PERFORM Event Display: Progress Note - Physician Authored Date: [id number] KAE BROWN :1950 Age:71 years Sex:Female Visit Date:10/13/2022 Primary Care Physician: Nikolas Kim Subjective NG tube came out??accidentally??yesterday??when she was??trying to get to the bathroom, reportedly. ?? Diet advance??this morning??to clear liquids??because some increase in her abdominal pain??but no nausea or vomiting. ?? Did have some relatively low sugars??and we will discontinue the??sliding scale insulin which may contribute.?? If this persist we will have to stop her??empagliflozin. Review of Systems Abdominal pain persist;??denies fever,??chest pain, dyspnea, palpitations, dizziness, headaches, sudden visual changes, cough, or new peripheral edema. Objective Vitals & Measurements T:??36.1?C ??(Temporal Artery)?? TMIN:??36.1?C ??(Temporal Artery)?? TMAX:??37.3?C ??(Temporal Artery)?? HR:??85??(Peripheral)?? RR:??18?? BP:??106/48?? SpO2:??91%?? Pain Score:??8?? O2 Therapy:??Room air?? Physical Exam General: Alert and oriented woman??who appears stated age in no acute distress; full command of cognitive faculties HEENT: Normocephalic; normal facial movements; extraocular muscle movements apparently normal; necksupple without adenopathy; no evidence of thyromegaly or nodularity Cardiovascular: S1-S2; ??no noted murmurs, rubs or gallops Pulmonary: Good air movement bilaterally with no wheezes, rales or rhonchi Abdomen: Soft, no organomegaly; nondistended; some diffuse tenderness to palpation Skin: Warm and dry; no rashes Neurological: Moves all extremities; no focal deficits; cranial nerves 3, 4, 6, 7, 8, 11, and 12 within normal limits Musculoskeletal: No ??edema; no obvious arthropathy Psych: normal affect; apparently euthymic; no abnormal thoughts or hallucinations evident.?? Assessment/Plan 1.??Small bowel obstruction - partial??K56.609 NG tube has now been removed. ??Bowel obstruction seems to be resolving. ?? Pain control. ?? IV Protonix. ?? Slowly improving.? IV fluids. ?? Allergy to iodine??relative??contraindication to CT with IV or p.o. contrast. ? 2.??Cardiac arrhythmia??I49.9 ??Continue home metoprolol. ?? 3.??Coronary artery disease??I25.10 ??Remains on statin??isosorbide??and losartan. ?? 4.??GERD (gastroesophageal reflux disease)??K21.9 ??PPI ?? 5.??Hypertension??I10 ??Continue home??amlodipine,??isosorbide,??losartan and metoprolol.?? Blood pressure remains well controlled. ?? 6.??Chronic obstructive pulmonary disease??J44.9 ??No issues-takes no medicines for this at home. ?? 7.??Type 2 diabetes mellitus??E11.9 Holding metformin.?? We will stop sliding scale insulin as she has had some low blood sugars??and has not needed this much.?? May need to stop her??empagliflozin??if lows continue, though this should??improve when she is able to eat. ?? 8.??Mechanical deep vein thrombosis (DVT) prophylaxis in place??Z78.9 Added??heparin today. ??Surgery seems less likely. 2.??Cardiac arrhythmia??I49.9 3.??Coronary artery disease??I25.10 4.??GERD (gastroesophageal reflux disease)??K21.9 5.??Hypertension??I10 6.??Chronic obstructive pulmonary disease??J44.9 7.??Type 2 diabetes mellitus??E11.9 8.??Mechanical deep vein thrombosis (DVT) prophylaxis in place??Z78.9 Orders: budesonide-formoterol 160 mcg-4.5 mcg/inh inhalation aerosol, 2 inh, Inhale, Aerosol, BID, First Dose: 10/15/22 21:00:00 EDT, Physician Stop, Routine D5% in LR-KCl 20 mEq/L 1,000 mL, Total Volume (mL): 1,000, 1,000 mL, Soln-IV, IV, 75 mL/hr, Order Duration: 30 days, Start Date: 10/16/22 12:51:00 EDT, Stop Date: 11/15/22 12:50:00 EDT, 76.8 kg, Populate Charting Weight From Order, 1.84, m2 heparin, 5,000 units = 1 mL, Subcutaneous, Soln, TID, First Dose: 10/15/22 15:00:00 EDT, Routine Blood Glucose Monitoring POC, 10/16/22 11:47:00 EDT, QIDACHS, 10/16/22 16:30:00 EDT Disposition:??She has been making slow progress??and hopefully this will persist. Electronically Signed on 10/16/22 12:53 PM Syed Ravi DO * Wilbert Adan MD: PERFORM Event Display: Progress Note - Physician Authored Date: [id number] Subjective NAEO NGT accidentally removed yesterday, clamp trial not completed Denies nausea/emesis +BMs/flatus Pain a little bit better but still present ?? Medications Inpatient !-Mylanta, 15 mL, Oral, every 6 hr, PRN amLODIPine, 10 mg= 2 tab, Oral, Daily atorvastatin, 5 mg= 0.5 tab, Oral, every night at bedtime budesonide-formoterol 160 mcg-4.5 mcg/inh inhalation aerosol, 2 inh, Inhale, BID D5% in LR-KCl 20 mEq/L 1,000 mL, 1000 mL, IV heparin, 5000 units= 1 mL, Subcutaneous, TID HYDROmorphone, 1 mg= 1 mL, Slow IV Push, every 2 hr, PRN influenza virus vaccine, 0.7 mL, IM, Once, PRN insulin lispro (HumaLog) correction- sensitive, Sensitive Scale, Subcutaneous, AC & bedtime isosorbide mononitrate, 60 mg= 2 tab, Oral, every morning Jardiance, 10 mg= 1 EA, Oral, every morning lidocaine 1% injectable solution, 5 mg= 0.5 mL, Intradermal, As Directed, PRN LORazepam, 0.5 mg= 0.25 mL, IV Push, every 6 hr, PRN losartan, 100 mg= 2 tab, Oral, Daily metoprolol extended release, 50 mg= 1 tab, Oral, BID MiraLax oral powder for reconstitution, 1 EA, Oral, BID Normal Saline Flush, 10 mL, IV Push, every 12 hr (mary) ondansetron, 4 mg= 2 mL, IV Push, every 6 hr, PRN pantoprazole, 40 mg= 1 EA, IV Push, Daily pneumococcal 23-polyvalent vaccine, 0.5 mL, IM, Once, PRN QUEtiapine, 50 mg= 1 tab, Oral, BID traZODone, 100 mg= 2 tab, Oral, every night at bedtime Xopenex HFA 45 mcg/inh inhalation aerosol, 90 mcg= 2 inh, Inhale, every 4 hr, PRN Home Advair Diskus 250 mcg-50 mcg inhalation powder, 1 puffs, Inhale, BID amLODIPine 10 mg oral tablet, 10 mg= 1 tab, Oral, Daily aspirin 81 mg oral capsule, 81 mg= 1 cap, Oral, Daily clotrimazole-betamethasone dipropionate 1%-0.05% topical cream, 1 erica, Topical, BID diphenhydrAMINE 25 mg oral capsule, 50 mg= 2 cap, Oral, every night at bedtime, PRN docusate sodium 250 mg oral capsule, 250 mg= 1 cap, Oral, every night at bedtime, PRN hydrOXYzine hydrochloride 25 mg oral tablet, 25 mg= 1 tab, Oral, TID, PRN isosorbide mononitrate 60 mg oral tablet, extended release, 60 mg= 1 tab, Oral, every morning Jardiance 10 mg oral tablet, 10 mg= 1 tab, Oral, every morning losartan 100 mg oral tablet, 100 mg= 1 tab, Oral, Daily metFORMIN 1000 mg oral tablet, 1000 mg= 1 tab, Oral, BID metoprolol succinate 50 mg oral capsule, extended release, 50 mg= 1 cap, Oral, BID omeprazole 20 mg oral delayed release capsule, 20 mg= 1 cap, Oral, BID pravastatin 20 mg oral tablet, 20 mg= 1 tab, Oral, every night at bedtime QUEtiapine 50 mg oral tablet, extended release, 50 mg= 1 tab, Oral, BID traZODone 100 mg oral tablet, 100 mg= 1 tab, Oral, every night at bedtime Xopenex HFA 45 mcg/inh inhalation aerosol, 2 puffs, Inhale, every 4 hr, PRN Physical Exam Vitals & Measurements T:??37.2?C ??(Temporal Artery)?? TMIN:??36.3?C ??(Temporal Artery)?? TMAX:??37.3?C ??(Temporal Artery)?? HR:??85??(Peripheral)?? RR:??16?? BP:??128/60?? SpO2:??90%?? Pain Score:??10?? O2 Therapy:??Room air?? General: No acute distress, oriented ?? HEENT: NC, AT ?? Pulm: Non-labored breathing pattern ?? Cardio: RRR ?? Abdominal: Soft, mild dist, TTP in left mid/upper abdomen,??no rebound/guarding, no peritonitis Lab Results Labs??(Last four charted values) WBC ?L??4.6?(OCTOBER 16)?6.3?(OCTOBER 15)?L??4.4?(OCTOBER 14)?8.5?(OCTOBER 13) Hgb ?L??11.4?(OCTOBER 16)?12.1?(OCTOBER 15)?13.5?(OCTOBER 14)?14.2?(OCTOBER 13) Hct ?L??36.3?(OCTOBER 16)?37.9?(OCTOBER 15)?42.0?(OCTOBER 14)?43.7?(OCTOBER 13) Plt ?174?(OCTOBER 15)?204?(OCTOBER 14)?214?(OCTOBER 13)?245?(OCTOBER 13) Na ?140?(OCTOBER 15)?139?(OCTOBER 14)?138?(OCTOBER 13)?136?(OCTOBER 13) K ?3.7?(OCTOBER 15)?L??3.4?(OCTOBER 14)?4.0?(OCTOBER 13)?4.3?() CO2 ?25?(OCTOBER 15)?29?(OCTOBER 14)?28?(OCTOBER 13)?25?(OCTOBER 13) Cr ?0.73?(OCTOBER 15)?0.86?(OCTOBER 14)?0.91?(OCTOBER 13)?H??1.05?(OCTOBER 13) BUN ?16?(OCTOBER 15)?H??19?(OCTOBER 14)?13?(OCTOBER 13)?15?(OCTOBER 13) Glucose Random ?87?(OCTOBER 15)?H??133?(OCTOBER 14)?H??155?(OCTOBER 13)?H??195?(OCTOBER 13) Imaging Results (Last 24 Hours) No qualifying data available. Assessment/Plan 1.??Small bowel obstruction - partial??K56.609 71-year-old female??with complicated surgical history??including Timur procedure??and??multiple??SBO's??at least 2 requiring??operative intervention. CT??consistent with??subacute/chronic process??with??small bowel??fecalization??and a??low-grade??obstruction. ?? NGT for decompression on 5/1 NGT removed on 10/15 >> denies nausea/emesis, +BMs/flatus ?? Start Miralax??and advance to clear liquid diet.? Encourage ambulation,??OOB to chair ?? 2.??Cardiac arrhythmia??I49.9 3.??Coronary artery disease??I25.10 4.??GERD (gastroesophageal reflux disease)??K21.9 5.??Hypertension??I10 6.??Chronic obstructive pulmonary disease??J44.9 7.??Type 2 diabetes mellitus??E11.9 8.??Mechanical deep vein thrombosis (DVT) prophylaxis in place??Z78.9 Orders: MiraLax oral powder for reconstitution, 1 EA, Oral, Powder-Recon, BID, First Dose: 10/16/22 8:00:00EDT, Routine Diet Order, 10/16/22 7:38:00 EDT, Clear Liquids Problem List/Past Medical History Ongoing Cardiac arrhythmia [...] (06/15/2017)???Knee replacement (06/15/2014)???Brain stimulation (06/15/2012)???Surgery (06/2002)???Hysterectomy (1983) Allergies penicillin??(Anaphylaxis) contrast media (iodine-based)??(Rash) Demerol??(Hives) Stadol??(Rash) Toradol??(Hives) Tylenol??(Petechiae) Valium codeine??(Hives) morphine??(Vomiting) Social History Alcohol Never Electronic Cigarette/Vaping Electronic Cigarette Use: Never. Home/Environment Lives with Spouse. Nutrition/Health Caffeine intake amount: Coffee/Cola: one daily. Sexual Sexually active: Yes. Other contraceptive use: None. Substance Use Never Tobacco Former tobacco user Tobacco Use:. quit 2011 per day. Family History Diabetes mellitus: Mother. Heart attack: Mother. Hypertension: Mother and Sister. Lung cancer: Father. Electronically Signed on 10/16/22 07:42 AM Wilbert Adan MD * Syed Ravi DO: PERFORM Event Display: Progress Note - Physician Authored Date: [id number] KAE BROWN :1950 Age:71 years Sex:Female Visit Date:10/13/2022 Primary Care Physician: Nikolas Kim Subjective Feeling somewhat better today. ?? She has been moving her bowels. ?? Her surgeon??has recommended a??NG tube clamp trial test.?? If??after several hours??she has less than??200 cc??in her stomach, the NG tube will be removed. ?? Review of Systems Abdominal pain mostly with bowel movements.?? This is not typical for her.?? Generally pain is improving.?? Denies chest pain, dyspnea, palpitations, dizziness, headaches, sudden visual changes, cough, or new peripheral edema. Objective Vitals & Measurements T:??36.3?C ??(Temporal Artery)?? TMIN:??36.3?C ??(Temporal Artery)?? TMAX:??36.9?C ??(Temporal Artery)?? HR:??87??(Peripheral)?? RR:??16?? BP:??128/58?? SpO2:??95%?? WT:??75.7??kg?? Pain Score:??3?? O2 Therapy:??Room air?? Physical Exam General: Alert and oriented woman??who appears stated age in no acute distress; full command of cognitive faculties HEENT: Normocephalic; normal facial movements; extraocular muscle movements apparently normal; necksupple without adenopathy; no evidence of thyromegaly or nodularity; NG tube in place Cardiovascular: S1-S2; ??no noted murmurs, rubs or gallops Pulmonary: Good air movement bilaterally with no wheezes, rales or rhonchi Abdomen: Soft, no organomegaly; nondistended; some diffuse tenderness to palpation Skin: Warm and dry; no rashes Neurological: Moves all extremities; no focal deficits; cranial nerves 3, 4, 6, 7, 8, 11, and 12 within normal limits Musculoskeletal: No ??edema; no obvious arthropathy Psych: normal affect; apparently euthymic; no abnormal thoughts or hallucinations evident.?? Assessment/Plan 1.??Small bowel obstruction - partial??K56.609 1.??Small bowel obstruction - partial??K56.609 NG tube remains in place but clamp trial??is ongoing.?? If she has less than??200 cc of fluid in her stomach when this is put to suction at 3 PM, it can be removed. ?? Pain control. ?? IV Protonix. ?? Slowly improving.?? Hopefully the NG tube can come out today.?? Advancing her diet. ?? IV fluids. ?? Allergy to iodine??relative??contraindication to CT with IV or p.o. contrast. ?? Surgeon noted possible need for methylprednisolone but did not feel Crohn's disease was a contributor at this time and will continue to hold off on this. ?? 2.??Cardiac arrhythmia??I49.9 ??Continue home metoprolol. ?? 3.??Coronary artery disease??I25.10 ??Remains on statin??isosorbide??and losartan. ?? 4.??GERD (gastroesophageal reflux disease)??K21.9 ??PPI ?? 5.??Hypertension??I10 ??Continue home??amlodipine,??isosorbide,??losartan and metoprolol.?? Blood pressure remains well controlled. ?? 6.??Chronic obstructive pulmonary disease??J44.9 ??No issues-takes no medicines for this at home. ?? 7.??Type 2 diabetes mellitus??E11.9 ??We will hold her metformin.?? Continue sliding scale insulin??and Jardiance.?? Kidney function has been fine and no evidence of??acidosis. ?? 8.??Mechanical deep vein thrombosis (DVT) prophylaxis in place??Z78.9 Added??heparin today. ??Surgery seems less likely. ?? Disposition:??Awaiting resolution of the small bowel obstruction.?Making some progress.?? NG tube clamped today and we will see how she does. 2.??Cardiac arrhythmia??I49.9 3.??Coronary artery disease??I25.10 4.??GERD (gastroesophageal reflux disease)??K21.9 5.??Hypertension??I10 6.??Chronic obstructive pulmonary disease??J44.9 7.??Type 2 diabetes mellitus??E11.9 8.??Mechanical deep vein thrombosis (DVT) prophylaxis in place??Z78.9 Orders: heparin, 5,000 units = 1 mL, Subcutaneous, Soln, TID, First Dose: 10/15/22 15:00:00 EDT, Routine Xopenex HFA 45 mcg/inh inhalation aerosol, 90 mcg = 2 inh, Inhale, Aerosol, every 4 hr, PRN wheezing, First Dose: 10/15/22 7:45:00 EDT, Routine QUEtiapine, 50 mg = 1 tab, Oral, Tab-ER, BID, First Dose: 10/15/22 9:00:00 EDT, Routine CBC w/ Diff, Blood, Routine, 10/16/22 7:00:00 EDT, Daily, for 3 days, Lab Collect Comprehensive Metabolic Panel, Blood, Routine, 10/16/22 7:00:00 EDT, Daily, for 3 days, Lab Collect Electronically Signed on 10/15/22 01:20 PM Syed Ravi DO History and physical note * Wilbert Adan MD: PERFORM, MODIFY Event Display: History and Physical Authored Date: [id number] KAE BROWN :1950 Age:71 years Sex:Female Visit Date:10/13/2022 Primary Care Physician: Nikolas Matos Chief Complaint Abdo pain and vomiting Reason for Consultation Concern for bowel obstruction History of Present Illness 79-year-old female??with abdominal pain, nausea/emesis.Past medical history significant for COPD, obesity, Parkinson's disease, CAD, Crohn's disease.?? Pertinent surgical history significant for hysterectomy, Timur procedure with temporary diverting loop ileostomy and subsequent takedown, multiple small bowel obstructions and at least 2 operations with lysis of adhesions.? Complains of approximately 2 to 3 days of abdominal pain, localized to left mid/upper abdomen.?? Passing flatus but denies BM.?? Chronic use of stool softener/laxatives.?? States she has SBO every 3 months.?? Approximately 2 to 3 weeks of mild preceding symptoms of decreased appetite, abdominal fullness and nausea; this is the typical cycle. ?? Workup in the ED included a CT AP (see below). Lactic acid initially 3.2 with repeat at 1.9 ?? IMPRESSION:?? 1. ?? Moderate dilation of the distal small bowel at the level of the?? anastomosis, with fecalization of contents (series 2, image 514),?? mild gas and fluid dilation of multiple small bowel loops proximal to?? this segment. Findings compatible with small bowel obstruction, at?? the level of the small bowel anastomosis within the upper pelvis. ?? Recommend surgical evaluation. 2. ?? Mild wall thickening of the terminal ileum, with minimal?? adjacent fat stranding, possibly ileitis.?? 3. ?? Mild bilateral hydronephrosis and proximal hydroureter, without?? obstruction identified.? She presented on 08/19/2022 with similar complaints; CT AP suspicious for epiploic appendagitis.?? NGT was recommended however she ultimately left AMA. ?? Unclear how she was diagnosed with CD.?? Does not know chronic medications for maintenance.?? She is unsure of her last colonoscopy. Review of Systems Per HPI Physical Exam Vitals & Measurements T:??36.2?C ??(Temporal Artery)?? TMIN:??36.2?C ??(Temporal Artery)?? TMAX:??36.7?C ??(Temporal Artery)?? HR:??101??(Peripheral)?? RR:??18?? BP:??163/71?? SpO2:??93%?? HT:??158.000??cm?? WT:??74.4??kg?? Pain Score:??10?? O2 Flow Rate:??2?? O2 Therapy:??Room air?? General: No acute distress, oriented ?? HEENT: NC, AT ?? Pulm: Non-labored breathing pattern ?? Cardio: RRR ?? Abdominal: Soft, mild dist, TTP in left mid/upper abdomen, no rebound/guarding, no peritonitis Assessment/Plan 1.??Small bowel obstruction - partial??K56.609 71-year-old female??with complicated surgical history??including Timur procedure??and??multiple??SBO's??at least 2 requiring??operative intervention. CT??consistent with??subacute/chronic process??with??small bowel??fecalization??and a??low-grade??obstruction. ?? NG tube for decompression. She continues to pass flatus. ?? Continue to monitor for resolution. Unfortunately, unable to give PO contrast (eg GG challenge) dueto iodine allergy. ?? If clinical deterioration, will require surgical intervention. Ileitis on CT, consistent with hx of CD,however, does not seem to be currently contributing to presentation. Will consider the addition of methylpred. ?? Trend labs, lytes and replete prn. 2.??Cardiac arrhythmia??I49.9 3.??Coronary artery disease??I25.10 4.??GERD (gastroesophageal reflux disease)??K21.9 5.??Hypertension??I10 6.??Chronic obstructive pulmonary disease??J44.9 7.??Type 2 diabetes mellitus??E11.9 8.??Mechanical venous thromboembolism (VTE) prophylaxis in place??Z78.9 9.??Discharge planning issues??Z02.9 Problem List/Past Medical History Ongoing Cardiac arrhythmia [...] (06/15/2017)???Knee replacement (06/15/2014)???Brain stimulation (06/15/2012)???Surgery (06/2002)???Hysterectomy (1983) Medications Inpatient !-Mylanta, 15 mL, Oral, every 6 hr, PRN amLODIPine, 10 mg= 2 tab, Oral, Daily atorvastatin, 5 mg= 0.5 tab, Oral, every night at bedtime HYDROmorphone, 1 mg= 1 mL, Slow IV Push, every 2 hr, PRN influenza virus vaccine, 0.7 mL, IM, Once, PRN insulin lispro (HumaLog) correction- sensitive, Sensitive Scale, Subcutaneous, AC & bedtime isosorbide mononitrate, 60 mg= 2 tab, Oral, every morning Jardiance, 10 mg= 1 EA, Oral, every morning Lactated Ringers Injection 1,000 mL, 1000 mL, IV lidocaine 1% injectable solution, 5 mg= 0.5 mL, Intradermal, As Directed, PRN LORazepam, 0.5 mg= 0.25 mL, IV Push, every 6 hr, PRN losartan, 100 mg= 2 tab, Oral, Daily metFORMIN, 1000 mg= 2 tab, Oral, BID w/Meals metoprolol extended release, 50 mg= 1 tab, Oral, BID Normal Saline Flush, 10 mL, IV Push, every 12 hr (mary) ondansetron, 4 mg= 2 mL, IV Push, every 6 hr, PRN pantoprazole, 40 mg= 1 EA, IV Push, Daily pneumococcal 23-polyvalent vaccine, 0.5 mL, IM, Once, PRN traZODone, 100 mg= 2 tab, Oral, every night at bedtime Home !-Zofran ODT 4 mg oral tablet, disintegrating, 4 mg= 1 tab, Oral, every 8 hr, PRN amLODIPine, 10 mg aspirin 81 mg oral capsule, 81 mg= 1 cap, Oral, Daily Bydureon Pen 2 mg subcutaneous injection, extended release, 2 mg, Subcutaneous, every week clotrimazole-betamethasone dipropionate 1%-0.05% topical cream, 1 erica, Topical, BID diphenhydrAMINE 25 mg oral capsule, 50 mg= 2 cap, Oral, every night at bedtime, PRN hydrOXYzine hydrochloride 25 mg oral tablet, 25 mg= 1 tab, Oral, TID, PRN isosorbide mononitrate 60 mg oral tablet, extended release, 60 mg= 1 tab, Oral, every morning Jardiance 10 mg oral tablet, 10 mg= 1 tab, Oral, every morning losartan 100 mg oral tablet, 100 mg= 1 tab, Oral, Daily metoprolol succinate 50 mg oral capsule, extended release, 50 mg= 1 cap, Oral, BID omeprazole 20 mg oral delayed release capsule, 20 mg= 1 cap, Oral, BID pravastatin 20 mg oral tablet, 20 mg= 1 tab, Oral, every night at bedtime traZODone traZODone 100 mg oral tablet, See Instructions Allergies penicillin??(Anaphylaxis) contrast media (iodine-based)??(Rash) Demerol??(Hives) Stadol??(Rash) [...] Hypertension: Mother and Sister. Lung cancer: Father. Immunizations Vaccine Date Status influenza virus vaccine, inactivated 06/20/2022 Recorded influenza, unspecified formulation 01/13/2022 Recorded Td(adult) unspecified formulation 11/23/2021 Recorded Comments : Tetanus Vaccine, Frequency 10 years zoster vaccine, inactivated 08/25/2021 Recorded Comments : Zoster/Shingles Vaccine Pneumococcal Conjugate, unspecified form 03/26/2021 Recorded Electronically Signed on 10/13/22 03:16 PM Wilbert Adan MD * Maddie Sun [employer]: PERFORM Event Display: History and Physical Authored Date: [id number] KAE BROWN :1950 Age:71 years Sex:Female Visit Date:10/13/2022 Primary Care Physician: Nikolas Matos DO Chief Complaint Abdo pain and vomiting History of Present Illness This is a 79-year-old female patient??with a history of COPD, cardiac arrhythmia, constipation, claustrophobia,??CAD, Crohn's disease, Parkinson's disease, diabetes??melitis 2, colectomy status post ileostomy (3??years ago)??with a history of lysis of adhesions?? (reversed after 6 months l ater),??and multiple bowel obstructions who presented to the [facility] emergency department for evaluation of recurrent worsening??left upper quadrant pain that was nonradiating and??accompanied by nausea and vomiting.?? Patient was seen??10/12/2022 in the emergency department for the same thing??and she??was discharged to home. Her pain returned within 1 hour of arriving at home.?The patient stated she continued to pass flatus.?? Her last bowel movement was 2 days ago.?? No fever or chills. She refuses a NGT.?? She received IVF in the ED, hydromorphone for pain and ondansetron for nausea. Labs in the ED WBC 8.6; Sodium 136; Potassium 4.3; glucose 195; creatinine 1.05 BUN 15; ??Magnesium 1.8.?? HR NSR 80-100; BP 105s/80s; RR 16; SPO2 94%??room air, afebrile 36.2.?? CT of abdomen read as??small bowel obstruction. ??She will be followed by surgery.?? Patient is admitted to the medical floor, stable, NPO. Review of Systems Constitutional:?No??fevers,?No??chills,?No??sweats Eye:?No??recent visual problems ENT:?No??ear pain,?No??nasal congestion,?No??sore throat Respiratory:?No??shortness of breath,?No??cough Cardiovascular:?No??Chest pain,?No??palpitations,?No??syncope Gastrointestinal:?Positive fornausea,?Positive for??vomiting,?No??diarrhea Genitourinary:?No??hematuria Peter/Lymph:?No??bruising tendency,?No??swollen lymph glands Endocrine:?No??excessive thirst,??No??excessive hunger Musculoskeletal:??No??back pain,??No??neck pain,??No??joint pain,??No??muscle pain,??No??decreased range of motion Integumentary:?No??rash,?No??pruritus,?No??abrasions Neurologic: Alert & oriented X 4 Psychiatric:?No??anxiety,?No??depression Physical Exam Vitals & Measurements T:??36.2?C ??(Temporal Artery)?? TMIN:??36.2?C ??(Temporal Artery)?? TMAX:??36.7?C ??(Temporal Artery)?? HR:??102??(Peripheral)?? RR:??20?? BP:??157/75?? SpO2:??94%?? HT:??158.000??cm?? WT:??73.5??kg?? Pain Score:??6?? Pain Score:??6?? O2 Flow Rate:??2?? O2 Therapy:??Room air?? Gen:??Pleasant, non-toxic appearing, resting comfortably. HEENT: NC, AT, PEERL, EOMI. Resp: Clear to auscultation bilaterally, normal work of breathing, no accessory muscle usage. Card: Regular rate and rhythm with no murmurs, rubs, or gallops, extremities warm and well perfused.?? GI: Tender to palpation throughout all quadrants, non-distended, no rebound or guarding.?? BS present : No suprapubic tenderness to palpation. MSK: No visible deformities, strength and tone without visually appreciable deficit. Skin: Normal color with no visible lesions. Neuro: Alert and oriented?3, no facial asymmetry, vision and hearing WNL. Psych: Mood and affect appropriate. Assessment/Plan 1.??Small bowel obstruction - partial??K56.609 Abdominal pain with nausea and vomiting x 2 days; -SBO per CT -Surgery consulted -NPO -Dilaudid IV PRN for pain -Pantoprazole IV ?? 2.??Cardiac arrhythmia??I49.9 Continue home meds post op and ok per surgery -Metoprolol 3.??Coronary artery disease??I25.10 Continue home meds post op and ok per sugery -Aspirin -Isosorbide -Pravastatin - 4.??GERD (gastroesophageal reflux disease)??K21.9 Stable on omeprazole at home; Pantoprazole IV started 5.??Hypertension??I10 Stable; continue home meds post op and ok per surgery -Losartan -Amlodipine ?? 6.??Chronic obstructive pulmonary disease??J44.9 Stable - no home medications 7.??Type 2 diabetes mellitus??E11.9 Continue home meds post op and ok per surgery -Jardiance -hold Metformin -FSBS q6h while NPO then AC HS -Insulin sliding scale 8.??Mechanical venous thromboembolism (VTE) prophylaxis in place??Z78.9 SCD - possible surgery 9.??Discharge planning issues??Z02.9 Home when stable +/- home health Orders: !-Mylanta, 15 mL, Oral, Susp, every 6 hr, PRN dyspepsia, First Dose: 10/13/22 4:29:00 EDT, STAT amLODIPine, 10 mg = 2 tab, Oral, Tab, Daily, First Dose: 10/13/22 9:00:00 EDT, Routine Jardiance, 10 mg = 1 EA, Oral, Tab, every morning, First Dose: 10/13/22 8:00:00 EDT, Routine HYDROmorphone, 1 mg = 1 mL, Slow IV Push, Soln, every 3 hr for 30 days, PRN pain, severe, First Dose: 10/13/22 5:32:00 EDT, Stop Date: 11/12/22 5:31:00 EDT, Physician Stop, Routine influenza virus vaccine, 0.7 mL, IM, Susp, Once, PRN other (see comment), First Dose: 10/13/22 4:29:00 EDT, Physician Stop, STAT insulin lispro (HumaLog) correction- sensitive, Sensitive Scale, Subcutaneous, Soln, AC & bedtime, First Dose: 10/13/22 7:30:00 EDT, Routine isosorbide mononitrate, 60 mg = 2 tab, Oral, Tab-ER, every morning, First Dose: 10/13/22 8:00:00 EDT, Routine Lactated Ringers Injection 1,000 mL, Total Volume (mL): 1,000, 1,000 mL, Soln- IV, IV, 100 mL/hr, Start Date: 10/13/22 4:32:00 EDT, 76.8 kg, Populate Charting Weight From Order, 1.84, m2 lidocaine 1% injectable solution, 5 mg 0.5 mL, Intradermal, Soln, As Directed, PRN other (see comment), First Dose: 10/13/22 4:29:00 EDT, STAT LORazepam, 0.5 mg = 0.25 mL, IV Push, Soln, every 6 hr, PRN anxiety, First Dose: 10/13/22 4:29:00 EDT, STAT losartan, 100 mg = 2 tab, Oral, Tab, Daily, First Dose: 10/13/22 9:00:00 EDT, Routine metoprolol extended release, 50 mg = 1 tab, Oral, Tab-ER, BID for 30 days, First Dose: 10/13/22 9:00:00 EDT, Stop Date: 11/12/22 8:59:00 EDT, Physician Stop, Routine ondansetron, 4 mg = 2 mL, IV Push, Soln, every 6 hr, PRN nausea/vomiting, First Dose: 10/13/22 4:29:00 EDT, STAT pantoprazole, 40 mg = 1 EA, IV Push, Powder-Inj, Daily, First Dose: 10/13/22 4:29:00 EDT, STAT pneumococcal 23-polyvalent vaccine, 0.5 mL, IM, Soln, Once, PRN other (see comment), First Dose: 10/13/22 4:29:00 EDT, Physician Stop, STAT Normal Saline Flush, 10 mL, IV Push, Soln, every 12 hr (mary), First Dose: 10/13/22 4:29:00 EDT, STAT traZODone, 100 mg = 2 tab, Oral, Tab, every night at bedtime, First Dose: 10/13/22 21:00:00 EDT, Routine Blood Glucose Monitoring POC, 10/13/22 5:19:00 EDT, QIDACHS, 10/13/22 7:30:00 EDT Cardiac Monitoring, 10/13/22 4:29:00 EDT, Telemetry CBC w/ Diff, Blood, Routine, 10/14/22 6:00:00 EDT, Once, Nurse collect Comprehensive Metabolic Panel, Blood, Stat, 10/14/22 6:00:00 EDT, Once, Nurse collect Consult to General Surgery, Routine, SBO, Wilbert Adan MD Diet Order, 10/13/22 4:30:00 EDT, NPO Intake and Output, 10/13/22 4:29:00 EDT, every 8 hrs, Constant Indicator, 10/13/22 4:29:00 EDT Lactic Acid, Blood, Routine, 10/13/22 6:15:00 EDT, Once, Lab Collect Magnesium Level, Blood, Stat, 10/14/22 6:00:00 EDT, Once, Nurse collect Oxygen Therapy, SpO2 goal 90% or greater, PRN PSO Admit to Inpatient, Semi-Private Telemetry, Inpatient, Jovany Pedro MD, 10/13/22 4:21:00 EDT, 10/13/22 4:21:00 EDT, 10/13/22 4:21:00 EDT, 2 midnights or more PT Evaluation and Treatment Acute., 10/13/22 4:29:00 EDT, Once Resuscitation Status, 10/13/22 4:29:00 EDT, Full Code Sequential Compression Devices (SCD's), 10/13/22 5:00:00 EDT, Constant Order Vital Signs, 10/13/22 4:29:00 EDT, Constant order, every 4 hrs Weight, 10/13/22 4:29:00 EDT, Daily Problem List/Past Medical History Ongoing Cardiac arrhythmia [...] (06/15/2017)???Knee replacement (06/15/2014)???Brain stimulation (06/15/2012)???Surgery (06/2002)???Hysterectomy (1983) Medications Inpatient !-Mylanta, 15 mL, Oral, every 6 hr, PRN amLODIPine, 10 mg= 2 tab, Oral, Daily HYDROmorphone, 1 mg= 1 mL, Slow IV Push, every 3 hr, PRN influenza virus vaccine, 0.7 mL, IM, Once, PRN insulin lispro (HumaLog) correction- sensitive, Sensitive Scale, Subcutaneous, AC & bedtime isosorbide mononitrate, 60 mg= 2 tab, Oral, every morning Jardiance, 10 mg= 1 EA, Oral, every morning Lactated Ringers Injection 1,000 mL, 1000 mL, IV lidocaine 1% injectable solution, 5 mg= 0.5 mL, Intradermal, As Directed, PRN LORazepam, 0.5 mg= 0.25 mL, IV Push, every 6 hr, PRN losartan, 100 mg= 2 tab, Oral, Daily metFORMIN, 1000 mg= 2 tab, Oral, BID w/Meals metoprolol extended release, 50 mg= 1 tab, Oral, BID Normal Saline Flush, 10 mL, IV Push, every 12 hr (mary) ondansetron, 4 mg= 2 mL, IV Push, every 6 hr, PRN pantoprazole, 40 mg= 1 EA, IV Push, Daily pneumococcal 23-polyvalent vaccine, 0.5 mL, IM, Once, PRN traZODone, 100 mg= 2 tab, Oral, every night at bedtime Home !-Zofran ODT 4 mg oral tablet, disintegrating, 4 mg= 1 tab, Oral, every 8 hr, PRN amLODIPine, 10 mg aspirin 81 mg oral capsule, 81 mg= 1 cap, Oral, Daily Bydureon Pen 2 mg subcutaneous injection, extended release, 2 mg, Subcutaneous, every week clotrimazole-betamethasone dipropionate 1%-0.05% topical cream, 1 erica, Topical, BID diphenhydrAMINE 25 mg oral capsule, 50 mg= 2 cap, Oral, every night at bedtime, PRN hydrOXYzine hydrochloride 25 mg oral tablet, 25 mg= 1 tab, Oral, TID, PRN isosorbide mononitrate 60 mg oral tablet, extended release, 60 mg= 1 tab, Oral, every morning Jardiance 10 mg oral tablet, 10 mg= 1 tab, Oral, every morning losartan 100 mg oral tablet, 100 mg= 1 tab, Oral, Daily metoprolol succinate 50 mg oral capsule, extended release, 50 mg= 1 cap, Oral, BID omeprazole 20 mg oral delayed release capsule, 20 mg= 1 cap, Oral, BID pravastatin 20 mg oral tablet, 20 mg= 1 tab, Oral, every night at bedtime traZODone traZODone 100 mg oral tablet, See Instructions Allergies penicillin??(Anaphylaxis) contrast media (iodine-based)??(Rash) Demerol??(Hives) Stadol??(Rash) [...] Hypertension: Mother and Sister. Lung cancer: Father. Immunizations Vaccine Date Status influenza virus vaccine, inactivated 06/20/2022 Recorded influenza, unspecified formulation 01/13/2022 Recorded Td(adult) unspecified formulation 11/23/2021 Recorded Comments : Tetanus Vaccine, Frequency 10 years zoster vaccine, inactivated 08/25/2021 Recorded Comments : Zoster/Shingles Vaccine Pneumococcal Conjugate, unspecified form 03/26/2021 Recorded Lab Results Test Name Test Result Date/Time WBC 8.6 x10^3/mcL 10/13/2022 02:15 EDT RBC 5.1 x10^6/mcL 10/13/2022 02:15 EDT Hgb 15.6 g/dL 10/13/2022 02:15 EDT Hct 47.5 % 10/13/2022 02:15 EDT MCV 93.7 10/13/2022 02:15 EDT MCH 30.8 pg 10/13/2022 02:15 EDT MCHC 32.8 g/dL 10/13/2022 02:15 EDT RDW-CV 13.0 % 10/13/2022 02:15 EDT Platelets 245 x10^3/mcL 10/13/2022 02:15 EDT Neutro Auto 70.5 % 10/13/2022 02:15 EDT Lymph Auto 20.4 % 10/13/2022 02:15 EDT [place] Auto 5.4 % 10/13/2022 02:15 EDT Eos, Auto 2.5 % 10/13/2022 02:15 EDT Basophil Auto 0.7 % 10/13/2022 02:15 EDT Imm Gran Auto 0.5 % 10/13/2022 02:15 EDT Neutro Absolute 6.1 x10^3/mcL 10/13/2022 02:15 EDT Sodium Level 136 mmol/L 10/13/2022 02:15 EDT Potassium Level 4.3 mmol/L 10/13/2022 02:15 EDT Chloride Level 99 mmol/L 10/13/2022 02:15 EDT CO2 25 mmol/L 10/13/2022 02:15 EDT Alk Phos 76 unit/L 10/13/2022 02:15 EDT AST 34 unit/L 10/13/2022 02:15 EDT ALT 50 unit/L 10/13/2022 02:15 EDT BUN 15 mg/dL 10/13/2022 02:15 EDT Glucose Level 195 mg/dL 10/13/2022 02:15 EDT Creatinine Level 1.05 mg/dL 10/13/2022 02:15 EDT eGFR AA 57 10/13/2022 02:15 EDT eGFR Non-AA 57 10/13/2022 02:15 EDT Calcium Level 9.0 mg/dL 10/13/2022 02:15 EDT Protein Total 8.2 g/dL 10/13/2022 02:15 EDT Albumin Level 4.3 g/dL 10/13/2022 02:15 EDT Bilirubin Total 0.4 mg/dL 10/13/2022 02:15 EDT Lactic Acid Lvl 2.6 mmol/L 10/13/2022 02:15 EDT Lipase Level 25 unit/L 10/13/2022 02:15 EDT Magnesium Level 1.8 mg/dL 10/13/2022 02:15 EDT Glucose POC 154 mg/dL 10/13/2022 05:51 EDT SARS-CoV-2 (COVID-19) RNA (ID Now) Not Detected 10/13/2022 04:10 EDT Electronically Signed on 10/13/22 07:27 AM Maddie Sun [employer] Electronically Signed on 10/13/22 08:47 AM Jovany Pedro MD Patient Care team information Care Team Personnel Name: Nikolas Kim Position: No Access Member Role: Informed Provider Address: Address: [address] [address]- [place] Name: Mason Henley Position: Nurse Member Role: ED Nurse Name: Jose Elias Henderson MD Position: Physician Member Role: ED Physician Care Team Related Persons Name: ÁNGEL BROWN Address: Home [address] [place] [phone]
--- OUTSIDE RECORDS SUMMARY | 2024-02-29 19:13 | XMS_ITS | Continuity of Care Document ---
Author Organization [facility] Address [address] [place] [address] Care Team Providers Care Reactor Technician Name Role Phone Bg Paz Joanna Primary Care Physician Encounter [facility] Date(s): 03/07/23 - 03/07/[address] [id number] Encounter Diagnosis Rib pain(Discharge Diagnosis) - 03/07/23 Discharge Disposition: Left Against Medical Advice Attending Physician: Coty Sevilla MD Admitting Physician: Coty Sevilla MD Allergies, Adverse Reactions, Alerts Substance Reaction Severity Status codeine Hives Unknown Active penicillin Anaphylaxis Severe Active morphine Vomiting Unknown Active Demerol Hives Unknown Active Toradol Hives Unknown Active Stadol Rash Unknown Active Valium Unknown Active Tylenol Petechiae Unknown Active contrast media (iodine-based) Rash Mild Active Immunizations Given and Recorded Vaccine Date Status [...] BID, # 45 g, 0 Refill(s), Pharmacy: [id number] Start Date: 08/05/22 Status: Ordered [...] electronic stimulator in brain 6Lumbar Spine Surgery Vital Signs Most recent to oldest [Reference Range]: 1 2 Temperature Temporal Artery [36-38 Deg C ] 36.7 Deg C (03/07/23 4:37 PM) Peripheral Pulse Rate [60-100 bpm] 105 b pm *HI* (03/07/23 4:50 PM) 102 bpm *HI* (03/07/23 4:37 PM) Respiratory Rate [12-24 br/min] 24 br/mi n (03/07/23 4:50 PM) 26 br/min *HI* (03/07/23 4:37 PM) Blood Pressure [90-140/60-90 mmHg] 157/7 0mmHg *HI* (03/07/23 4:50 PM) 172/83mmHg *HI* (03/07/23 4:37 PM) Weight Dosing 77.00 kg (03/07/23 4:47 PM) Weight Estimated 77.00 kg (03/07/23 4:37 PM) Height/Length Dosing 158.000 cm (03/07/23 4:47 PM) Height/Length Estimated 158.000 cm (03/07/23 4:37 PM) Social History Social History Type Response Tobacco Former tobacco user Tobacco Use:. quit 2011 per . Sex Female Physician Emergency department Note * Coty Sevilla MD: PERFORM Event Display: ED Note Physician Authored Date: [id number] MIRA BROWN :1950 Age:72 years Sex:Female Visit Date:03/07/2023 Primary Care Physician: Bg Paz MD Basic Information Time Seen: Coty Sevilla MD / 03/07/2023 16:38 Chief Complaint Pt fell 2 days ago on floor after tripping on basket. Pt states she rolled over in bed last night, heard/ felt a pop over L ribs. Now c/o sharp L rib pain with minimal movement. +SOB. Denies any other injuries. History Of Present Illness: 72-year-old lady??with history of COPD, cardiac arrhythmia, constipation, claustrophobia,??CAD, Crohn's disease, Parkinson's disease, diabetes??melitis 2, colectomy status post ileostomy (3??years ago)??with a history of lysis of adhesions?? (reversed after 6 months later),??and multiple bowel obstructions who presented to the ED c/o Lt sided rib pain after a fall 2 days ago. The patient says shetripped over a basket 2 days ago and fell on her left side with her arm over her chest. She says she had some mild pain at the time and did well throughout the next day (yesterday) but yesterday night she turned to her left side and felt a pop. She has been having severe pain in her Lt anterior ribs area since then. She also reports sob on walking or moving around. She did not hit her head and had no loc. She denies pain anywhere else. She has no n/v/c/d. No f/c. Good appetite. Physical Exam Vitals & Measurements T:??36.7?C ??(Temporal Artery)?? HR:??105??(Peripheral)?? RR:??24?? BP:??157/70?? SpO2:??96%?? HT:??158.000??cm?? WT:??77.00??kg??(Estimated)?? Pain Score:??10?? O2 Therapy:??Room air?? GEN: well developed and well nourished HEAD: NCAT EYES: pupils round reactive to light, conjunctiva clear, extraocular movements intact, no raccoons eyes ENT: no fluid in external acoustic canals, no hemotympanum, no islas's sign, nares patent, oropharynx clear NECK: no JVD, midline trachea, no cervical spine tenderness,?? HEART: regular rate and rhythm LUNGS: CTAB CHEST: chest wall with no bruising or deformity. There is severe ttp over the Lt anterior lower ribs. No crepitus felt. ABD: no Shetty-Manley's or Brantwood's sign, soft, there is severe ttp in the LUQ and Lt mid abdomen, norebound or guarding PELVIS: stable to rock BACK: no step offs or deformities, T-L spine non tender : deferred EXT: No deformity or ttp, 2+ global pulses, moving all extremities well, 5/5 muscle strength globally NEURO: CNII-XII grossly intact, no sensory deficits Medical Decision Makin-year-old lady??with history of COPD, cardiac arrhythmia, constipation, claustrophobia,??CAD, Crohn's disease, Parkinson's disease, diabetes??melitis 2, colectomy status post ileostomy (3??years ago)??with a history of lysis of adhesions?? (reversed after 6 months later),??and multiple bowel obstructions who presented to the ED c/o Lt sided rib pain after a fall 2 days ago. Pt is well and non toxic appearing She is speaking in full sentences I had concerns for rib fracture(s) and possible intraabdominal injury considering the amount of tenderness that she had on exam. I recommended a CT of the chest and abdomen. Pt became angry and agitated, said she did not want a CT and could not lay on her back. I explainedwe would give her pain medications. She became increasingly angry and put her clothes on stating Idon't nee no damn CT, I have??a broken rib. At that point I offered an XRay which she ended up refusing also for unclear reason. Her did not intervene and remained silent during this process. I asked him?? if she was her usual self and he said yes. She told him they were leaving and he left with her. She was A&Ox3 and able to make her own decisions. I asked her to sign an AMA form and she said I'm not signing some damn papers. ?? Procedure No Qualifying Data Assessment/Plan 1.??Rib pain??R07.81 Medication Reconciliation Unchanged amLODIPine (amLODIPine 10 mg oral tablet)1 tab Oral (given by mouth) every day. ?? aspirin (aspirin 81 mg oral capsule)1 Capsules Oral (given by mouth) every day. ?? clotrimazole-betamethasone dipropionate (clotrimazole-betamethasone dipropionate 1%-0.05% topical cream)1 Application Topical (on the skin) 2 times a day. Refills: 0. ?? diphenhydrAMINE (diphenhydrAMINE 25 mg oral capsule)2 Capsules Oral (given by mouth) every night atbedtime as needed as needed for insomnia. ?? docusate (docusate sodium 250 mg oral capsule)1 Capsules Oral (given by mouth) every night at bedtime as needed as needed for constipation. ?? empagliflozin (Jardiance 10 mg oral tablet)1 tab Oral (given by mouth) every morning. ?? fluticasone-salmeterol (Advair Diskus 250 mcg-50 mcg inhalation powder)1 Puffs Inhale (breathe in) 2 times a day. ?? hydrOXYzine (hydrOXYzine hydrochloride 25 mg oral tablet)1 tab Oral (given by mouth) 3 times a day as needed as needed for anxiety. ?? isosorbide mononitrate (isosorbide mononitrate 60 mg oral tablet, extended release)1 tab Oral (given by mouth) every morning. ?? levalbuterol (Xopenex HFA 45 mcg/inh inhalation aerosol)2 Puffs Inhale (breathe in) every 4 hours as needed as needed for wheezing. ?? losartan (losartan 100 mg oral tablet)1 tab Oral (given by mouth) every day. ?? metFORMIN (metFORMIN 1000 mg oral tablet)1 tab Oral (given by mouth) 2 times a day. ?? metoprolol (metoprolol succinate 50 mg oral capsule, extended release)1 Capsules Oral (given by mouth) 2 times a day. ?? omeprazole (omeprazole 20 mg oral delayed release capsule)1 Capsules Oral (given by mouth) 2 times a day. ?? pravastatin (pravastatin 20 mg oral tablet)1 tab Oral (given by mouth) every night at bedtime. ?? QUEtiapine (QUEtiapine 50 mg oral tablet, extended release)1 tab Oral (given by mouth) 2 times a day. ?? traZODone (traZODone 100 mg oral tablet)1 tab Oral (given by mouth) every night at bedtime. Problem List/Past Medical [...] Sister. Lung cancer: Father. Electronically Signed on 03/07/23 05:13 PM Coty Sevilla MD Patient Care team information Care Team Personnel Name: Bg Paz MD Position: Physician Member Role: Primary Care Physician Address: Address: [address] [place] [id number] Name: Coty Sevilla MD Position: Physician Member Role: Admitting Physician Address: Address: [address] [place] [address] Name: Patricia Gibbons Position: Nurse Member Role: ED Nurse Care Team Related Persons Name: ÁNGEL BROWN Address: Home [address] [place] [phone]
--- OUTSIDE RECORDS SUMMARY | 2024-02-29 19:13 | XMS_ITS | Data Portability ---
Author Organization [facility] Address [address] [place] [address] Assessment No assessment recorded. Plan of Treatment Reminders Order Date Submit Date Provider Last Modified By Organization Details Last Modified Time Details Appointments None recorded. Lab [facility] [address] [place] [address] [place], [address], 4 15:19:16 hemoglobin A1C, fingerstick 2023 024 [email or web address] 163 [facility], [address], [place], [address], 4 13:19:46 HbA1c (hemoglobin A1c), blood 2023 024 [facility] (Registration ), [address] [place] [address] [place], [address], 4 08:52:23 microalbumi n, urine 2023 024 [email or web address] [facility] Laboratory (Registration ), [address] [place] [address] [place], [address], 4 10:38:17 lipid panel, serum 2023 024 [facility] (Registration ), [address] [place] [address] [place], [address], 4 08:52:24 CMP, serum or plasma 2023 024 [facility] Laboratory (Registration ), [address] [place] [address] [place], [address], 4 16:20:40 influenza virus A + B + SARS-CoV-2 (COVID19) Ag panel, rapid IA, upper respiratory specimen 2023 024 [email or web address] [facility], [address], [place], [address], 4 09:04:10 CBC 2023 024 [facility] Laboratory (Registration ), [address] [place] [address] [place], [address], 4 15:19:16 HbA1c (hemoglobin A1c), blood 2023 024 [facility] (Registration ), [address] [place] [address] [place], [address], 4 08:52:23 microalbumi n, urine [email or web address] Laboratory (Registration ), [address] [place] [address] [place], [address], 4 10:38:17 lipid panel, serum 2023 024 [facility] (Registration ), [address] [place] [address] [facility] [place], [address], 4 08:52:24 CMP, serum or plasma 2023 024 [facility] Laboratory (Registration ), [address] [place] [address] [place], [address], 4 16:20:40 hemoglobin A1C, fingerstick 2023 024 [email or web address] [facility], [address], [place], [address], 4 17:13:48 Referral general surgeon referral - chronic constipatio n with history of several sbo's. Overdue for colon cancer screening, and suggest panendoscop y given persistent gerd symptoms despite intense treatment. 2023 024 [email or web address] [facility], [address] [place] [address] [address], [place], [address], 4 12:45:07 Procedures None recorded. Surgeries None recorded. Imaging None recorded. Medication Orders metoprolol succinate ER 100 mg tablet,exte nded release 24 hr 2023 024 DIAN [facility], [address], [address], [place], [address], 4 12:34:17 Symbicort 160 mcg-4.5 mcg/actuati on HFA aerosol inhaler 2023 024 rbarter [facility], [address], [address], [place], [address], 4 13:16:33 azithromyci n 250 mg tablet 2023 024 rbarter [facility], [address], [address], [place], [address], 4 13:15:38 famotidine 40 mg tablet 2023 024 DIAN [facility], [address], [address], [place], [address], 4 13:51:56 atorvastati n 20 mg tablet 2023 024 DIAN [facility], [address], [address], [place], [address], 4 18:19:24 Patient TargetsNo targets recorded. Patient Instructions Encounter Date Encounter Id Patient Instructions Last Modified By Organization Details Last Modified Time 06/24/2023 [id number] Kae - your hgba1c is 7.0 today. This is at goal. We will increase metoprolol back to 100 mg. Take this at night and this may help with daytime energy and prevent dizziness. We will try symbicort in place of advair. Start at 2 puffs twice daily and lower to one puff twice daily if breathing is doing well. patel Not available 06/24/2023 12:44:50 08/07/2023 [id number] For the azithromycin: Take two tablets today, and then 1 tablet each day thereafter at the same time till medication is gone. -Continue OTC cough suppressant/ and Not available 08/07/2023 10:06:35 10/22/2023 [id number] Kae - for your heartburn, take both of the 20 mg omeprazole tablets together in morning, and take famotidine in the evening. Your blood work looks good. Your hgba1c is 6.9. [email or web address] Not available 10/22/2023 13:51:12 01/21/2024 [id number] I will send atorvastatin to [facility] to treat cholesterol. I will refer you to [facility] general surgeon for endoscopy and colonoscopy. Continue with omeprazole in morning and famotidine at night. patel Not available 01/21/2024 14:48:31 Reason for Referral General Surgeon Referral for Chronic constipation chronic constipation with history of several sbo's. Overdue for colon cancer screening, and suggest panendoscopy given persistent gerd symptoms despite intense treatment. Referring Physician: Nikolas Matos, Family Medicine, Encounter Date: 01/21/2024 Results Created Date Observation Date Name Description Value Unit Range Abnormal Flag Note LastModifiedBy Organization Detail LastModifiedTime 06/24/1906/24/2023 hemog lobin A1C, finge rstic k HGBA1C 7.0 % <5.7 Not Available [facility] [address], [place], [address], 06/24/2023 12:59:30 08/07/19 24 08/07/2023 influ roman virus A + B + SARS- CoV-2 (COVI D19) Ag panel , rapid IA, upper respi rator y speci men Influenza A negati ve Not Available [facility] [address], [place], [address], 08/07/2023 10:27:36 08/07/19 24 08/07/2023 influ roman virus A + B + SARS- CoV-2 (COVI D19) Ag panel , rapid IA, upper respi rator y speci men Influenza B positi ve Not Available [facility] [address], [place], [address], 08/07/2023 10:27:36 08/07/19 24 08/07/2023 influ roman virus A + B + SARS- CoV-2 (COVI D19) Ag panel , rapid IA, upper respi rator y speci men SARS-COV-2 negati ve Not Available [facility] [address], [place], [address], 08/07/2023 10:27:36 08/07/19 24 08/07/2023 influ roman virus A + B + SARS- CoV-2 (COVI D19) Ag panel , rapid IA, upper respi rator y speci men Sample sent for PCR confirmation No Not Available [facility] [address], [place], [address], 08/07/2023 10:27:36 10/13/19 24 10/13/2023 COMPL ETE BLOOD COUNT NO DIFF WBC 8.37 10_3/ uL 4.4-10 .8 normal Not Available [address] [facility] [place], [address] 10/13/2023 15:19:16 10/13/19 24 10/13/2023 COMPL ETE BLOOD COUNT NO DIFF RBC 4.29 10_6/ uL 3.93-5 .22 normal Not Available [address] [place], [address] 10/13/2023 15:19:16 10/13/19 24 10/13/2023 COMPL ETE BLOOD COUNT NO DIFF HGB 13.0 g/dL 11.2-1 5.7 normal Not Available [address] [place], [address] 10/13/2023 15:19:16 10/13/19 24 10/13/2023 COMPL ETE BLOOD COUNT NO DIFF HCT 39.9 % 36.0-4 6.0 normal Not Available [address] [place], [address] 10/13/2023 15:19:16 10/13/19 24 10/13/2023 COMPL ETE BLOOD COUNT NO DIFF MCV 93 fL 80-95 normal Not Available [address] [place], [address] 10/13/2023 15:19:16 10/13/19 24 10/13/2023 COMPL ETE BLOOD COUNT NO DIFF MCH 30.3 pg 27.0-3 3.0 normal Not Available [address] [place], [address] 10/13/2023 15:19:16 10/13/19 24 10/13/2023 COMPL ETE BLOOD COUNT NO DIFF MCHC 32.6 % 32.0-3 6.0 normal Not Available [address] [place], [address] 10/13/2023 15:19:16 10/13/19 24 10/13/2023 COMPL ETE BLOOD COUNT NO DIFF RDW 13.0 % 11.7-1 4.6 normal Not Available [address] [place], [address] 10/13/2023 15:19:16 10/13/19 24 10/13/2023 COMPL ETE BLOOD COUNT NO DIFF platelet count 249 10_3/ uL 130-40 0 normal Not Available [address] [place], [address] 10/13/2023 15:19:16 10/13/19 24 10/13/2023 COMPL ETE BLOOD COUNT NO DIFF MPV 11.0 fL 8.0-11 .0 normal Not Available [address] [place], [address] 10/13/2023 15:19:16 10/13/19 24 10/13/2023 HEMOG LOBIN A1C hemoglobin A1C 6.9 % <5.7 high Refer ence Range s <5.7 Rachel l 5.7-6 .4% Predi abete s 6.5% or great er Diagn ostic for diabe adriel (if confi rmed) Refer ences : 1. Ameri can Diabe adriel [facility] iatio n. Clas sific ation and Diagn osis of Diabe adriel. [facility]abe adriel [facility] 2019 Jun; 2(Sup pleme nt 1):S1 3-s28 . Not Available [address] [facility] [place], [address] 10/13/2023 15:53:28 10/13/19 24 10/13/2023 COMPR EHENS EYAD METAB OLIC PANEL calcium 8.9 mg/dL 8.5-10 .1 normal Not Available [address] [facility] [place], [address] 10/13/2023 16:20:39 10/13/19 24 10/13/2023 COMPR EHENS EYAD METAB OLIC PANEL glucose 134 mg/dL 74-106 high Not Available [facility] [address] [place], [address] 10/13/2023 16:20:39 10/13/19 24 10/13/2023 COMPR EHENS EYAD METAB OLIC PANEL BUN 19 mg/dL 7-18 high Not Available [facility] [address] [facility] [place], [address] 10/13/2023 16:20:39 10/13/19 24 10/13/2023 COMPR EHENS EYAD METAB OLIC PANEL creatinine 1.0 mg/dL 0.55-1 .02 normal Not Available [address] [place], [address] 10/13/2023 16:20:39 10/13/19 24 10/13/2023 COMPR EHENS EYAD METAB OLIC PANEL estimated GFR 60.23 mL/min /1.73m 2 The eGFR is calcu lated from a serum creat inine using the CKD-E PI 2020 equat ion. Other varia bles requi red for the equat ion are gende r and age; this equat ion does not inclu de a race coeff icien t. This equat ion has simil ar overa ll perfo rmanc e to previ ous equat ions excep t value s may diffe r, in parti cular , in patie nts with highe r value s of eGFR and young er-ag ed adult s. Not Available [address] [place], [address] 10/13/2023 16:20:39 10/13/19 24 10/13/2023 COMPR EHENS EYAD METAB OLIC PANEL total protein 7.5 g/dL 6.4-8. 2 normal Not Available [address] [place], [address] 10/13/2023 16:20:39 10/13/19 24 10/13/2023 COMPR EHENS EYAD METAB OLIC PANEL albumin 4.2 g/dL 3.4-5. 0 normal Not Available [address] [place], [address] 10/13/2023 16:20:39 10/13/19 24 10/13/2023 COMPR EHENS EYAD METAB OLIC PANEL bilirubin, total 0.3 mg/dL 0.2-1. 0 normal Not Available [address] [place], [address] 10/13/2023 16:20:39 10/13/19 24 10/13/2023 COMPR EHENS EYAD METAB OLIC PANEL alk phos 56 U/L 46-116 normal Not Available [address] [place], [address] 10/13/2023 16:20:39 10/13/19 24 10/13/2023 COMPR EHENS EYAD METAB OLIC PANEL sodium 137 mmol/ L 136-14 5 normal Not Available [address] [place], [address] 10/13/2023 16:20:39 10/13/19 24 10/13/2023 COMPR EHENS EYAD METAB OLIC PANEL potassium 4.3 mmol/ L 3.5-5. 1 normal Not Available [address] [place], [address] 10/13/2023 16:20:39 10/13/19 24 10/13/2023 COMPR EHENS EYAD METAB OLIC PANEL chloride 104 mmol/ L 98-107 normal Not Available [address] [place], [address] 10/13/2023 16:20:39 10/13/19 24 10/13/2023 COMPR EHENS EYAD METAB OLIC PANEL CO2 24.3 mmol/ L 21.0-3 2.0 normal Not Available [address] [place], [address] 10/13/2023 16:20:39 10/13/19 24 10/13/2023 COMPR EHENS EYAD METAB OLIC PANEL anion gap 8.7 mmol/ L 3-11 normal Not Available [address] [place], [address] 10/13/2023 16:20:39 10/13/19 24 10/13/2023 COMPR EHENS EYAD METAB OLIC PANEL AST 29 U/L 15-37 normal Not Available [facility] [address] [place], [address] 10/13/2023 16:20:39 10/13/19 24 10/13/2023 COMPR EHENS EYAD METAB OLIC PANEL ALT 51 U/L 14-59 normal Not Available [facility] [address] [place], [address] 10/13/2023 16:20:39 10/13/19 24 10/13/2023 LIPID 2 cholesterol 159 mg/dL <200 Not Available [facility] [address] [place], [address] 10/13/2023 16:20:40 10/13/19 24 10/13/2023 LIPID 2 triglyceride 412 mg/dL <150 high Not Available [address] [place], [address] 10/13/2023 16:20:40 10/13/19 24 10/13/2023 LIPID 2 HDL cholesterol 46 mg/dL 40-60 Not Available [address] [place], [address] 10/13/2023 16:20:40 10/13/19 24 10/13/2023 LIPID 2 calculated LDL TNP mg/dL <100 Trigl yceri de great er than 400 mg/dL ,LDL calcu latio n inval id. Measu red LDL added by refle x. Not Available [address] [place], [address] 10/13/2023 16:20:40 10/13/19 24 10/13/2023 LIPID 2 cholesterol 159 mg/dL <200 Not Available [address] [place], [address] 10/13/2023 16:42:45 10/13/19 24 10/13/2023 LIPID 2 triglyceride 412 mg/dL <150 high Not Available [address] [place], [address] 10/13/2023 16:42:45 10/13/19 24 10/13/2023 LIPID 2 HDL cholesterol 46 mg/dL 40-60 Not Available [address] [place], [address] 10/13/2023 16:42:45 10/13/19 24 10/13/2023 LIPID 2 calculated LDL TNP mg/dL <100 Trigl yceri de great er than 400 mg/dL ,LDL calcu latio n inval id. Measu red LDL added by refle x. Not Available [address] [place], [address] 10/13/2023 16:42:45 10/13/19 24 10/13/2023 DIREC T LDL CHOL direct LDL chol 71 mg/dL <100 Not Available [address] [place], [address] 10/13/2023 16:42:46 01/21/20 24 01/21/2024 hemog lobin A1C, finge rstic k hemoglobin A1C 6.5 % <5.7 Not Available [facility] [address], [place], [address], 01/21/2024 15:02:30 02/28/20 24 02/28/2024 LIPAS E lipase 29 U/L 16-77 normal Not Available [facility] [address] [place], [address] 02/28/2024 22:55:17 02/28/20 24 02/28/2024 COMPR EHENS EYAD METAB OLIC PANEL calcium 9.6 mg/dL 8.5-10 .1 normal Not Available [address] [facility] [place], [address] 02/28/2024 22:55:16 02/28/20 24 02/28/2024 COMPR EHENS EYAD METAB OLIC PANEL glucose 176 mg/dL 74-106 high Not Available [facility] [address] [facility] [place], [address] 02/28/2024 22:55:16 02/28/20 24 02/28/2024 COMPR EHENS EYAD METAB OLIC PANEL BUN 16 mg/dL 7-18 normal Not Available [facility] [address] [facility] [place], [address] 02/28/2024 22:55:16 02/28/20 24 02/28/2024 COMPR EHENS EYAD METAB OLIC PANEL creatinine 0.9 mg/dL 0.55-1 .02 normal Not Available [address] [facility] [place], [address] 02/28/2024 22:55:16 02/28/20 24 02/28/2024 COMPR EHENS EYAD METAB OLIC PANEL estimated GFR 67.92 mL/min /1.73M 2 The eGFR is calcu lated from a serum creat inine using the CKD-E PI 2020 equat ion. Other varia bles requi red for the equat ion are gende r and age; this equat ion does not inclu de a race coeff icien t. This equat ion has simil ar overa ll perfo rmanc e to previ ous equat ions excep t value s may diffe r, in parti cular , in patie nts with highe r value s of eGFR and young er-ag ed adult s. Not Available [address] [place], [address] 02/28/2024 22:55:16 02/28/20 24 02/28/2024 COMPR EHENS EYAD METAB OLIC PANEL total protein 8.2 g/dL 6.4-8. 2 normal Not Available [address] [place], [address] 02/28/2024 22:55:16 02/28/20 24 02/28/2024 COMPR EHENS EYAD METAB OLIC PANEL albumin 4.3 g/dL 3.4-5. 0 normal Not Available [address] [place], [address] 02/28/2024 22:55:16 02/28/20 24 02/28/2024 COMPR EHENS EYAD METAB OLIC PANEL bilirubin, total 0.37 mg/dL 0.2-1. 0 normal Not Available [address] [place], [address] 02/28/2024 22:55:16 02/28/20 24 02/28/2024 COMPR EHENS EYAD METAB OLIC PANEL alk phos 69 U/L 46-116 normal Not Available [address] [place], [address] 02/28/2024 22:55:16 02/28/20 24 02/28/2024 COMPR EHENS EYAD METAB OLIC PANEL sodium 138 mmol/ L 136-14 5 normal Not Available [address] [place], [address] 02/28/2024 22:55:16 02/28/20 24 02/28/2024 COMPR EHENS EYAD METAB OLIC PANEL potassium 4.0 mmol/ L 3.5-5. 1 normal Not Available [address] [place], [address] 02/28/2024 22:55:16 02/28/20 24 02/28/2024 COMPR EHENS EYAD METAB OLIC PANEL chloride 101 mmol/ L 98-107 normal Not Available [address] [place], [address] 02/28/2024 22:55:16 02/28/20 24 02/28/2024 COMPR EHENS EYAD METAB OLIC PANEL CO2 27.6 mmol/ L 21.0-3 2.0 normal Not Available [address] [place], [address] 02/28/2024 22:55:16 02/28/20 24 02/28/2024 COMPR EHENS EYAD METAB OLIC PANEL anion gap 9.4 mmol/ L 3-11 normal Not Available [address] [place], [address] 02/28/2024 22:55:16 02/28/20 24 02/28/2024 COMPR EHENS EYAD METAB OLIC PANEL AST 37 U/L 15-37 normal Not Available [address] [place], [address] 02/28/2024 22:55:16 02/28/20 24 02/28/2024 COMPR EHENS EYAD METAB OLIC PANEL ALT 45 U/L 14-59 normal Not Available [address] [place], [address] 02/28/2024 22:55:16 02/28/20 24 02/28/2024 LACTA TE lactate 1.70 mmol/ L 0.9-1. 7 normal Not Available [address] [place], [address] 02/28/2024 22:33:14 02/28/20 24 02/28/2024 COMPL ETE BLOOD COUNT W/DIF F WBC 7.24 10_3/ uL 4.4-10 .8 normal Not Available [address] [place], [address] 02/28/2024 22:31:15 02/28/20 24 02/28/2024 COMPL ETE BLOOD COUNT W/DIF F RBC 4.50 10_6/ uL 3.93-5 .22 normal Not Available [address] [place], [address] 02/28/2024 22:31:15 02/28/20 24 02/28/2024 COMPL ETE BLOOD COUNT W/DIF F HGB 13.7 g/dL 11.2-1 5.7 normal Not Available [address] [place], [address] 02/28/2024 22:31:15 02/28/20 24 02/28/2024 COMPL ETE BLOOD COUNT W/DIF F HCT 41.4 % 36.0-4 6.0 normal Not Available [address] [place], [address] 02/28/2024 22:31:15 02/28/20 24 02/28/2024 COMPL ETE BLOOD COUNT W/DIF F MCV 92 fL 80-95 normal Not Available [facility] [address] [place], [address] 02/28/2024 22:31:15 02/28/20 24 02/28/2024 COMPL ETE BLOOD COUNT W/DIF F MCH 30.4 pg 27.0-3 3.0 normal Not Available [address] [place], [address] 02/28/2024 22:31:15 02/28/20 24 02/28/2024 COMPL ETE BLOOD COUNT W/DIF F MCHC 33.1 % 32.0-3 6.0 normal Not Available [address] [place], [address] 02/28/2024 22:31:15 02/28/20 24 02/28/2024 COMPL ETE BLOOD COUNT W/DIF F RDW 13.2 % 11.7-1 4.6 normal Not Available [address] [place], [address] 02/28/2024 22:31:15 02/28/20 24 02/28/2024 COMPL ETE BLOOD COUNT W/DIF F platelet count 241 10_3/ uL 130-40 0 normal Not Available [address] [place], [address] 02/28/2024 22:31:15 02/28/20 24 02/28/2024 COMPL ETE BLOOD COUNT W/DIF F MPV 9.8 fL 8.0-11 .0 normal Not Available [address] [place], [address] 02/28/2024 22:31:15 02/28/20 24 02/28/2024 COMPL ETE BLOOD COUNT W/DIF F neutrophils % 54.6 % Not Available [address] [place], [address] 02/28/2024 22:31:15 02/28/20 24 02/28/2024 COMPL ETE BLOOD COUNT W/DIF F lymphocytes % 32.3 % Not Available [address] [facility] [place], [address] 02/28/2024 22:31:15 02/28/20 24 02/28/2024 COMPL ETE BLOOD COUNT W/DIF F monocytes % 8.4 % Not Available [address] [place], [address] 02/28/2024 22:31:15 02/28/20 24 02/28/2024 COMPL ETE BLOOD COUNT W/DIF F eosinophils % 4.0 % Not Available [address] [facility] [place], [address] 02/28/2024 22:31:15 02/28/20 24 02/28/2024 COMPL ETE BLOOD COUNT W/DIF F basophils % 0.3 % Not Available [address] [facility] [place], [address] 02/28/2024 22:31:15 02/28/20 24 02/28/2024 COMPL ETE BLOOD COUNT W/DIF F immature grans % 0.4 % Not Available [address] [facility] [place], [address] 02/28/2024 22:31:15 02/28/20 24 02/28/2024 COMPL ETE BLOOD COUNT W/DIF F nucleated RBC 0.0 % 0.0-0. 3 normal Not Available [address] [facility] [place], [address] 02/28/2024 22:31:15 02/28/20 24 02/28/2024 COMPL ETE BLOOD COUNT W/DIF F absolute neutrophil count 3.95 10_3/ uL 1.2-6. 7 normal Not Available [address] [place], [address] 02/28/2024 22:31:15 02/28/20 24 02/28/2024 COMPL ETE BLOOD COUNT W/DIF F absolute lymphocyte count 2.34 10_3/ uL 1.2-3. 4 normal Not Available [address] [place], [address] 02/28/2024 22:31:15 02/28/20 24 02/28/2024 COMPL ETE BLOOD COUNT W/DIF F absolute monocyte count 0.61 10_3/ uL 0.1-0. 8 normal Not Available [address] [place], [address] 02/28/2024 22:31:15 02/28/20 24 02/28/2024 COMPL ETE BLOOD COUNT W/DIF F absolute eosinophil count 0.29 10_3/ uL 0.0-0. 7 normal Not Available [address] [place], [address] 02/28/2024 22:31:15 02/28/20 24 02/28/2024 COMPL ETE BLOOD COUNT W/DIF F absolute basophil count 0.02 10_3/ uL 0.0-0. 2 normal Not Available [address] [place], [address] 02/28/2024 22:31:15 02/28/20 24 02/28/2024 LIPAS E lipase 29 U/L 16-77 normal Not Available [facility] [address] [place], [address] 02/28/2024 22:52:16 02/28/20 24 02/28/2024 COMPR EHENS EYAD METAB OLIC PANEL glucose 176 mg/dL 74-106 high Not Available [facility] [address] [place], [address] 02/28/2024 22:52:16 02/28/20 24 02/28/2024 COMPR EHENS EYAD METAB OLIC PANEL BUN 16 mg/dL 7-18 normal Not Available [facility] [address] [place], [address] 02/28/2024 22:52:16 02/28/20 24 02/28/2024 COMPR EHENS EYAD METAB OLIC PANEL creatinine 0.9 mg/dL 0.55-1 .02 normal Not Available [address] [place], [address] 02/28/2024 22:52:16 02/28/20 24 02/28/2024 COMPR EHENS EYAD METAB OLIC PANEL estimated GFR 67.92 mL/min /1.73M 2 The eGFR is calcu lated from a serum creat inine using the CKD-E PI 2020 equat ion. Other varia bles requi red for the equat ion are gende r and age; this equat ion does not inclu de a race coeff icien t. This equat ion has simil ar overa ll perfo rmanc e to previ ous equat ions excep t value s may diffe r, in parti cular , in patie nts with highe r value s of eGFR and young er-ag ed adult s. Not Available [address] [place], [address] 02/28/2024 22:52:16 02/28/20 24 02/28/2024 COMPR EHENS EYAD METAB OLIC PANEL total protein 8.2 g/dL 6.4-8. 2 normal Not Available [address] [place], [address] 02/28/2024 22:52:16 02/28/20 24 02/28/2024 COMPR EHENS EYAD METAB OLIC PANEL albumin 4.3 g/dL 3.4-5. 0 normal Not Available [address] [place], [address] 02/28/2024 22:52:16 02/28/20 24 02/28/2024 COMPR EHENS EYAD METAB OLIC PANEL bilirubin, total 0.37 mg/dL 0.2-1. 0 normal Not Available [address] [place], [address] 02/28/2024 22:52:16 02/28/20 24 02/28/2024 COMPR EHENS EYAD METAB OLIC PANEL alk phos 69 U/L 46-116 normal Not Available [address] [place], [address] 02/28/2024 22:52:16 02/28/20 24 02/28/2024 COMPR EHENS EYAD METAB OLIC PANEL sodium 138 mmol/ L 136-14 5 normal Not Available [address] [place], [address] 02/28/2024 22:52:16 02/28/20 24 02/28/2024 COMPR EHENS EYAD METAB OLIC PANEL potassium 4.0 mmol/ L 3.5-5. 1 normal Not Available [address] [place], [id number] 02/28/2024 22:52:16 02/28/20 24 02/28/2024 COMPR EHENS EYAD METAB OLIC PANEL chloride 101 mmol/ L 98-107 normal Not Available [address] [place], [id number] 02/28/2024 22:52:16 02/28/20 24 02/28/2024 COMPR EHENS EYAD METAB OLIC PANEL CO2 27.6 mmol/ L 21.0-3 2.0 normal Not Available [address] [place], [id number] 02/28/2024 22:52:16 02/28/20 24 02/28/2024 COMPR EHENS EYAD METAB OLIC PANEL anion gap 9.4 mmol/ L 3-11 normal Not Available [address] [place], [address] 02/28/2024 22:52:16 02/28/20 24 02/28/2024 COMPR EHENS EYAD METAB OLIC PANEL AST 37 U/L 15-37 normal Not Available [facility] [address] [place], [address] 02/28/2024 22:52:16 02/28/20 24 02/28/2024 COMPR EHENS EYAD METAB OLIC PANEL ALT 45 U/L 14-59 normal Not Available [facility] [address], [address] 02/28/2024 22:52:16 02/28/20 24 02/29/2024 URINA LYSIS color Yellow yellow Not Available [facility] [address] [place], [address] 02/29/2024 00:25:31 02/28/20 24 02/29/2024 URINA LYSIS clarity Clear clear Not Available [facility] [address] [place], [address] 02/29/2024 00:25:31 02/28/20 24 02/29/2024 URINA LYSIS specific gravity 1.020 1.005- 1.025 normal Not Available [address] [place], [address] 02/29/2024 00:25:31 02/28/20 24 02/29/2024 URINA LYSIS pH 7.0 5-8 normal Not Available [facility] [address] [place], [address] 02/29/2024 00:25:31 02/28/20 24 02/29/2024 URINA LYSIS leukocyte esterase Negati ve negati ve Not Available [address] [place], [address] 02/29/2024 00:25:31 02/28/20 24 02/29/2024 URINA LYSIS nitrite Negati ve negati ve Not Available [address] [place], [address] 02/29/2024 00:25:31 02/28/20 24 02/29/2024 URINA LYSIS protein Negati ve mg/dL neg-tr krystal Not Available [address] [place], [address] 02/29/2024 00:25:31 02/28/20 24 02/29/2024 URINA LYSIS glucose Negati ve mg/dL negati ve Not Available [address] [place], [address] 02/29/2024 00:25:31 02/28/20 24 02/29/2024 URINA LYSIS ketones Negati ve mg/dL negati ve Not Available [address] [place], [address] 02/29/2024 00:25:31 02/28/20 24 02/29/2024 URINA LYSIS urobilinogen 0.2 mg/dL up to 0.2 Not Available [address] [place], [address] 02/29/2024 00:25:31 02/28/20 24 02/29/2024 URINA LYSIS bilirubin Negati ve negati ve Not Available [address] [place], [address] 02/29/2024 00:25:31 02/28/20 24 02/29/2024 URINA LYSIS blood Negati ve negati ve Not Available [address] [facility] [place], [address] 02/29/2024 00:25:31 02/28/20 24 08/19/2022 US, abdom en No observ ation record ed. [email or web address] Not Available 02/27 22:16:59 02/29/20 24 02/28/2024 vrad sania Beasley t Name: Bubba Kitchen delmar Sana Unit #: [id number] Loc: ER Orderi ng Provid er: Accoun t #: [id number] Status : PRE ER Primar y Care Provid er: Silas on,Pat gio Date of Exam: Sex: F : 1950 Age: 73 Exam(s ) PROCED URE INFORM ATION: Exam: CT Abdome n And Pelvis Withou t Contra st Exam date and time: 024 10:24 PM Age: 73 years old Clinic al indica tion: Abd pain, HX obstru ction TECHNI QUE: Imagin g protoc ol: Comput ed tomogr aphy of the abdome n and pelvis withou t contra st. COMPAR DYAN: No releva nt prior studie s availa ble. FINDIN GS: Lungs: No acute infilt rate in either lung base. Left lower lobe calcif ied granul cheryl(s) . Liver: Liver fatty infilt ration . Gallbl adder and biliar y ducts: Status post cholec ystect pascale. No biliar y tract dilata tion. Pancre as: Normal . No ductal dilati on. Spleen : Normal . No spleno megaly . Adrena l glands : Normal . No mass. Kidney s and ureter s: No hydron ephros is. No calcif ied renal or ureter al stones . No perine phric strand ing or perine phric fluid. Stomac h and bowel: No genera lized ileus or bowel obstru ction. Patulo us bowel loop within the pelvic region contai ricco anasto motic suture line. Append ix: No eviden ce of append icitis . Intrap eriton eal space: No free air. No signif icant fluid collec tion. Vascul ature: The abdomi nal aorta is normal in calibe r withou t aneury sm. Lymph nodes: No enlarg ed lymph nodes. Urinar y bladde r: Under- disten ded urinar y bladde r. Reprod uctive : Unrema rkable as visual ized. Bones/ joints : Neuros timula tor leads in the thorac ic spinal canal. Prior surger y at the L3 throug h S1 levels . Soft tissue s: A few shallo w fat-co ntaini ng ventra l hernia s. IMPRES PADMA: 1. No acute intra- abdomi nal or pelvic proces s. 2. No genera lized ileus or bowel obstru ction. Dictat ed and Mikey sood d by: Manju duke MD. Orderi ng:Vanessa flores MD Access ion#=[id number] Ordere d By: CC: ------ ------ ------ ------ ------ ------ ------ ------ ------ ------ ------ ------ ---- Dictat ed By: Report s vrad [id number] [id number] Transc ribed By: Vicky Warner 2223 This is privil eged, confid ential inform ation intend ed only for the provid er named. Any use or distri bution by any person other than this provid er is strict ly prohib ited. If you receiv e this report in error, please notify us immedi noel at [phone] and return the origin al report to us at the addres s above. Thank- you. INTERFACE [facility] [address], [place], [address] 02/29/2024 00:22:31 02/29/20 24 02/29/2024 CT imagi ng repor t Patimerry t Name: Bubba Kitchen Unit #: [id number] Loc: ER Orderi ng Provid er: Tamika Buenrostro,Nidhi Euceda Accoun t #: [id number] Status : DEP ER Primar y Care Provid er: Silas on,Pat gio Date of Exam: Sex: F : 1950 Age: 73 Exam(s ) a CT:CT abdome n pelvis wo Exam(s ) CT ABDOME N PELVIS WO EXAM: CT ABDOME N PELVIS WO CLINIC AL HISTOR Y: abd pain, h/o obstru ction. TECHNI QUE: Imagin g Protoc ol: Axial comput ed tomogr aphy images with brito l and sagitt al reform atted images were create d and review ed CONTRA ST MATERI AL: Intrav enous: none Oral: None COMPAR DYAN: No exams were availa ble for compar dyan FINDIN GS: VISUAL IZED LUNG BASES: There is noncal cified 3 millim eter nodule left lower lobe noted. (Serie s 2/imag e 3). Pleura l effusi ons ABDOME N: GI: There is eviden ce of previo us bowel surger y with small bowel anasto mosis noted in the pelvis with this being patulo us and fecal filled in with some mild surrou nding streak ing at this level but withou t an obviou s high-g rade obstru ction at this time. LIVER: Liver is slight ly promin ent in size and hypode nse implyi ng steato sis. There no obviou s discre te focal hepati c lesion s eviden t on this non few study. GALLBL ADDER/ BILIAR Y: Gallbl adder surgic ally absent . CBD is not dilate d. PANCRE : No eviden ce of pancre atic mass nor dilata tion of the pancre atic duct. SPLEEN : Spleen is not enlarg ed. No obviou s intras plenic lesion s. ADRENA LS: There are no signif icant adrena l masses . KIDNEY S:No cysts eviden t. No solid renal masses . No calcul i nor hydron ephros is. . ABDOMI NAL AORTA: Heavil y calcif ied but not enlarg ed. LYMPH NODES: There is no retrop eriton eal nor paraao rtic adenop athy. ABDOMI NAL WALL: No eviden ce of signif icant anteri or abdomi nal wall nor inguin al hernia . PELVIS : LYMPH NODES: There is no intrap elvic nor inguin al adenop athy. GI: No eviden ce of append icitis .No eviden ce of sigmoi d divert iculit is.. URINAR Y BLADDE R: Bladde r is collap sed. REPROD UCTIVE : Uterus surgic ally absent . No abnorm al adnexa l masses . OSSEOU S: No fractu res. Multil evel lower lumbar spine fusion L4-5-S 1. Also trans sacral stimul ator as well as plate colorer ior epidur al leads at and above T12-L1 level. IMPRES PADMA: 1. There is eviden ce of previo us partia l small bowel resect ion with anasto mosis in the pelvis . The anasto mosis appear s somewh at patulo us and fecal filled and there is some mild surrou nding fat strand ing. Suspic ious for elemen t of develo ping obstru ction at this level. Not exclud e early leak. Read by Brandan DIOP Telera diolog y. Final report called by myself to ER physic jojo 2023 RADIAT ION DOSE DELIVE RED: 395.34 mGy.cm Total DLP DATA REPOSI TORY: All CT scans at this facili ty are submit nita to the Nation al Radiol ogy Data Regist ry (NRDR) Dose Index Regist ry (DIR) with the [place] tiff [place] of Radiol ogy (ACR). RADIAT ION OPTIMI ZATION : All CT scans at this facili ty use at least one of these dose optimi zation techni ques: automa nita exposu re contro l; mA and/or kV adjust ment per patien t size (inclu brendan target ed exams where dose is matche d to clinic al indica tion); or iterat eyad recons tructi on. 022: Total DLP = 0.00 mGy-cm Ordere d By: Nidhi Meza CC: ------ ------ ------ ------ ------ ------ ------ ------ ------ ------ ------ ------ ---- Dictat ed By: Twin Landry M.D. 1600 1600 Transc ribed By: Frantz WAITE,Alphonso cristina 1600 This is privil eged, confid ential inform ation intend ed only for the provid er named. Any use or distri bution by any person other than this provid er is strict ly prohib ited. If you receiv e this report in error, please notify us immedi juanly at and return the origin al report to us at the addres s above. Thank- you. INTERFACE [facility] [address], [place], [address] 02/29/2024 16:04:48 Result Notes None recorded. Problems Name Problem SNOMED Code Status Onset Date Resolution Date Notes Provider Name and Address Organization Details Recorded Time Type 2 diabetes mellitus without complica tion 091477480 Active 2021 Problem Code: E11.9; Problem Code Type: ICD-10; [address], [place], [address] , [place] - [facility] 4 19:02:50 Gastroes ophageal reflux disease without esophagi tis 512508805 Active 202112/22/19 22 - Comments only - Nikolas Matos RPA - Dre-candy montesinosed on twice daily PPI. Problem Code: K21.9; Problem Code Type: ICD-10; Not Available [facility] 3 05:18:16 Obesity 450439594 Active 2021 Problem Code: E66.9; Problem Code Type: ICD-10; [facility] Available [facility] 3 05:18:16 Hyperlip idemia 55139273 Active 202109/20/19 23 - Comments only - Nikolas Matos RPA - She continue s on statin. Problem Code: E78.5; Problem Code Type: ICD-10; [address], [place], [address] , [facility] 4 19:00:57 [facility] hyperten padma 44372249 Active 2021 Problem Code: I10; Problem Code Type: ICD-10; [address], [place], [address] , [facility] 4 19:00:32 Chronic obstruct eyad pulmonar y disease 79734107 Active 202109/20/19 23 - Comments only - Nikolas Matos RPA - Stable with maintena nce inhaler. Infreque nt use of rescue inhaler. Problem Code: J44.9; Problem Code Type: ICD-10; Not Available [facility] 3 05:18:17 Parkinso n's disease 46889672 Active 202112/22/19 22 - Comments only - Nikolas Matos RPA - She has a deep brain stimulat or in place. This works very well for her spasms and tremor. Problem Code: G20; Problem Code Type: ICD-10; [address], [place], [address] , [facility] 4 19:01:30 Atherosc lerosis of coronary artery without angina pectoris 59585928990 4103 Active 202101/10/20 23 - Comments only - Nikolas Matos RPA - Cath in 2019 revealed 30% RCA lesion with preserve d ejection fraction . [place]. She continue s with chronic pattern of fleeting chest pain and palpitat ions that she feels is more related to anxiety. However she has had more shortnes s of breath with exertion . Thought not be cardiac in nature by cardiolo gy. She continue s on isosorbi de mononitr ate daily. Problem Code: I25.10; Problem Code Type: ICD-10; [address], [place], [address] , [facility] 4 11:40:10 Vitamin D deficien cy 08292550 Active 2021 Problem Code: E55.9; Problem Code Type: ICD-10; Not Available [facility] 3 05:18:17 Divertic ulitis of intestin e 312984275 Active 202112/22/19 22 - Comments only - Nikolas Matos RPA - Signific ant history of divertic ulitis that began when she was a teenager . History of bowel resectio n with colostom y and subseque nt reversal . Also history of several small bowel obstruct ions. She is very aware of the signs and symptoms . She was told that she should have a colonosc opy annually . Is been a couple years since her last. We will try to get records. She would like to hold off on a colonosc opy for now. Problem Code: K57.92; Problem Code Type: ICD-10; Not Available [facility] 3 05:18:17 Anxiety disorder 428244096 Active 202104/22/20 22 - Comments only - Nikolas Matos RPA - She did not tolerate recent start of BuSpar. She feels hydroxyz ine used as needed is working well for her. Continue s with trazodon e at night. She has upcoming appointm ent with behavior al [facility]. Problem Code: F41.9; Problem Code Type: ICD-10; Not Available [facility] 3 05:18:17 Posttrau matic stress disorder 63017009 Active 202101/10/20 23 - Comments only - Nikolas Matos RPA - She is interest ed in continue d follow-u p with clinton zaman here. She has met with Natasha on 1 occasion . Lost to follow-u p. We will facilita te another appointm ent. Problem Code: F43.10; Problem Code Type: ICD-10; Not Available [facility] 3 05:18:18 Eczema 13642625 Active 202206/20/19 23 - Comments only - Nikolas Matos RPA - Non specific dermatit is on right forearm. Will treat with triamcin olone cream. Problem Code: L30.9; Problem Code Type: ICD-10; Not Available [facility] 3 05:18:18 Intestin al obstruct ion 29790323 Active 202201/10/20 23 - Comments only - Nikolas Matos RPA - Referral to [facility] for recurren t small bowel obstruct ion over the past year. Her bowels continue to be variable . Constipa tion alternat ing with diarrhea . Occasion al blood in the stool. We do not have a colonosc opy for her on record though by her history she has had one in [facility] before moving to [place]. [facility] ed fiber rich diet. Problem Code: K56.609; Problem Code Type: ICD-10; Not Available [facility] 3 05:18:18 Nausea and vomiting 56147819 Completed 202109/19/2022 Problem Code: R11.2; Problem Code Type: ICD-10; Not Available [facility] 3 05:18:18 Diarrhea 39704014 Completed 202109/19/2022 Problem Code: R19.7; Problem Code Type: ICD-10; Not Available [facility] 3 05:18:18 Dizzines s and giddines s 106070615 Completed 202109/19/2022 Problem Code: R42; Problem Code Type: ICD-10; Not Available [facility] 3 05:18:19 Left upper quadrant pain 129781628 Completed 202109/19/2022 Problem Code: R10.12; Problem Code Type: ICD-10; Not Available [facility] 3 05:18:19 [facility]entia l tremor 090008044 Active 202204/02/20 23 - Comments only - Nikolas Matos RPA - [facility] - trial of topamax 03/2023 Problem Code: G25.0; Problem Code Type: ICD-10; Not Available [facility] 4 05:35:33 Problem Notes None recorded. Procedures Surgical History None recorded. Imaging Results Imaging Date Name Status LastModified by Organiz ation Details LastModified Time 08/19/2022 US, abdomen completed [email or web address] Information n ot available 02/28/2024 22:16:59 02/28/2024 vrad report completed INTERFACE [address] [place], [address] 02/29/2024 00:22:31 02/29/2024 CT imaging report completed INTERFACE [address] [place], [address] 02/29/2024 16:04:48 Procedure Notes None recorded. Medical Equipment None Reported. Allergies Allergen ID Allergen Name Allergen Category Reaction Reaction Severity Criticality Documentation Date Start Date Code Code System Note Provider Name and Address Organization Details Recorded Time 62557 Valium medicatio n hives moderate Not available 04/24/20232021 82014 2 RxNorm hives Not Available [facility] 3 16:31:08 60354 Demerol medicatio n hives moderate Not available 04/24/20232021 52887 1 RxNorm hives Not Available [facility] 3 16:31:08 24988 Toradol medicatio n hives moderate Not available 04/24/20232021 29281 RxNorm hives Not Available [facility] 3 16:31:08 17229 Medicinal product containin g penicilli n and acting as antibacte rial agent (product) medicatio n anaphylax is Not available Not available 04/24/20232021 76704 05 SNOMED anaph ylaxi s Not Available [facility] 3 16:31:09 39766 morphine sulfate medicatio n vomiting moderate Not available 04/24/20232021 81312 RxNorm vomit ing Not Available [facility] 3 16:31:09 49636 codeine medicatio n hives moderate Not available 04/24/20232021 2670 RxNorm hives Not Available [facility] 3 16:31:10 08421 Iodinated contrast media (substanc e) medicatio n Not available Not available Not available 06/24/2023 56561 2003 SNOMED CHRISTINE MCKENZIE RN [facility], [place] - [facility]. 4 12:27:01 Medications Name Sig Start Date Stop Date Status Note LastModified by Organization Details LastModified Time Prescript ion - Renewal active trazodon e Not Available Not Available Not Available losartan 50 mg tablet Take 1 tablet by mouth once a day 04/22 completed Not Available Not Available Not Available buspirone 5 mg tablet Take 1 tablet by mouth twice a day 04/22 completed Not Available Not Available Not Available primidone 50 mg tablet 1 tablet by mouth once a day 06/20 completed [facility] Not Available Not Available Not Available atorvasta tin 20 mg tablet TAKE ONE TABLET BY MOUTH EVERY DAY active Not Available Not Available No t Available azithromy justin 250 mg tablet TAKE TWO TABLETS BY MOUTH AT ONCE ON THE FIRST DAY THEN TAKE ONE DAILY THEREAFT ER 10/21 completed Not Available Not Available Not Available fluconazo le 150 mg tablet TAKE ONE TABLET BY MOUTH A SINGLE DOSE 06/24 completed Not Available Not Available Not Available metoprolo l succinate ER 50 mg tablet,ex tended release 24 hr TAKE ONE TABLET BY MOUTH EVERY DAY 10/21 completed Not Available Not Available Not Available famotidin e 40 mg tablet TAKE ONE TABLET BY MOUTH EVERY DAY 2023 active Not Available Not Available Not Avai lable metoprolo l succinate ER 100 mg tablet,ex tended release 24 hr TAKE ONE TABLET BY MOUTH EVERY DAY (DOSE INCREASE ) active Not Available Not Available No t Available topiramat e 25 mg tablet TAKE ONE TABLET BY MOUTH TWICE A DAY active Not Available Not Available No t Available aspirin 81 mg tablet,de layed release Take 1 tablet by mouth once a day active Not Available Not Available No t Available triamcino lone acetonide 0.1 % topical cream Apply a small amount to affected area twice a day use for 7 consecut eyad days at most and then take a week off. 06/24 completed Not Available Not Available Not Available isosorbid e dinitrate 30 mg tablet Take 1 tablet by mouth twice a day 12/20 completed Not Available Not Available Not Available isosorbid e mononitra te ER 60 mg tablet,ex tended release 24 hr TAKE ONE TABLET BY MOUTH EVERY DAY active Not Available Not Available No t Available Diflucan 100 mg tablet 04/02 completed Not Available Not Available Not Available trazodone 100 mg tablet TAKE ONE TABLET BY MOUTH AT BEDTIME active Not Available Not Available No t Available OneTouch Ultra Test strips test 1-2 times daily 2021 active Not Available Not Available Not Avai lable amlodipin e 10 mg tablet TAKE ONE TABLET BY MOUTH EVERY MORNING active Not Available Not Available No t Available metformin 1,000 mg tablet TAKE ONE TABLET BY MOUTH TWICE A DAY active Not Available Not Available No t Available clotrimaz ole-betam ethasone 1 %-0.05 % topical cream APPLY TOPICALL Y TO THE AFFECTED AREA(S) TWICE DAILY 06/24 completed Not Available Not Available Not Available losartan 25 mg tablet Take 1 tablet by mouth once a day 12/20 completed Not Available Not Available Not Available Advair Diskus 250 mcg-50 mcg/dose powder for inhalatio n INHALE ONE PUFF BY MOUTH TWICE A DAY DIRECTED 10/21 completed Not Available Not Available Not Available Stool Softener 250 mg capsule 12/20 completed Not Available Not Available Not Available omeprazol e 20 mg capsule,d elayed release TAKE ONE CAPSULE BY MOUTH TWICE A DAY active Not Available Not Available No t Available hydroxyzi ne HCl 25 mg tablet TAKE ONE TABLET BY MOUTH THREE TIMES A DAY NEEDED FOR ANXIETY active Not Available Not Available No t Available isosorbid e mononitra te 10 mg tablet 12/20 completed Not Available Not Available Not Available pravastat in 20 mg tablet TAKE ONE TABLET BY MOUTH AT BEDTIME 01/20 completed Not Available Not Available Not Available ondansetr on 4 mg disintegr ating tablet 1 tablet on tongue three times a day As needed for nausea/v omiting 09/19 completed Not Available Not Available Not Available losartan 100 mg tablet TAKE ONE TABLET BY MOUTH EVERY DAY active Not Available Not Available No t Available sertralin e 50 mg tablet Take 1 tablet by mouth once a day 12/20 completed Not Available Not Available Not Available Ventolin HFA 90 mcg/actua tion aerosol inhaler Inhale 2 puff using inhaler every four to six hours while awake 10/10 completed Not Available Not Available Not Available Benadryl Allergy 25 mg tablet active otc Not Available Not Available Not Available Pen Needle 31 gauge x 10/28 completed Not Available Not Available Not Available OneTouch UltraSoft Lancets test blood sugar 1-2 times daily 2021 active Not Available Not Available Not Avai lable levalbute rol HFA 45 mcg/actua tion aerosol inhaler INHALE TWO PUFFS BY MOUTH EVERY 4 HOURS NEEDED WHILE AWAKE 2023 active Not Available Not Available Not Avai lable budesonid e-formote rol HFA 160 mcg-4.5 mcg/actua tion aerosol inhaler 10/21 completed Not Available Not Available Not Available Victoza 3-Berny 0.6 mg/0.1 mL (18 mg/3 mL) subcutane ous pen injector Inject 1.2 mg subcutan eously once a day 06/20 completed Not Available Not Available Not Available Breo Ellipta 100 mcg-25 mcg/dose powder for inhalatio n INHALE ONE PUFF BY MOUTH EVERY MORNING active Not Available Not Available No t Available Jardiance 10 mg tablet TAKE ONE TABLET BY MOUTH EVERY MORNING 06/24 completed candidia sis Not Available Not Available Not Available Trulicity 0.75 mg/0.5 mL subcutane ous pen injector Inject 0.75 mg subcutan eously once a week 04/28 completed Not Available Not Available Not Available Bydureon BCise 2 mg/0.85 mL subcutane ous auto-inje ctor Inject 2 mg subcutan eously once a week 04/28 completed Not Available Not Available Not Available OneTouch Ultra2 Meter onetouch glucomet er 2021 active Not Available Not Available Not Avai lable Vitals Date Recorded Body height Respiratory rate Body temperature Body mass index (BMI) Body weight Heart rate Systolic blood pressure Diastolic blood pressure Provider Name and Address Organization Details Last Updated DateTime 4 156.997 4 cm 16 /min 98.1 [degF] 30.5 kg/m2 10228.9 g 100 /min 150 mm[Hg] 60 mm[Hg] CHRISTINE MCKENZIE RN [facility] 4 12:26:28 Date Recorded Body height Body mass index (BMI) Body weight Body temperature Oxygen saturation Oxygen saturation in Arterial blood by Pulse oximetry Systolic blood pressure Diastolic blood pressure Provider Name and Address Organization Details Last Updated DateTime 4 157 cm 30.4 kg/m2 67634.4 4 g 98.1 [degF] 96 % 96 % 131 mm[Hg] 59 mm[Hg] Nata Velazquez MA [facility] 4 09:23:09 Date Recorded Body height Body mass index (BMI) Body weight Body temperature Oxygen saturation Oxygen saturation in Arterial blood by Pulse oximetry Heart rate Respiratory rate Systolic blood pressure Diastolic blood pressure Provider Name and Address Organization Details Last Updated DateTime 4 157 cm 31.3 kg/m2 77695.7 g 98.8 [degF] 99 % 99 % 97 /min 15 /min 122 mm[Hg] 60 mm[Hg] BRITTANY FONG RN [facility] 4 13:19:56 Date Recorded Body height Body mass index (BMI) Body weight Body temperature Oxygen saturation Oxygen saturation in Arterial blood by Pulse oximetry Heart rate Respiratory rate Systolic blood pressure Diastolic blood pressure Provider Name and Address Organization Details Last Updated DateTime 4 157 cm 29.6 kg/m2 73981.3 7 g 98.3 [degF] 94 % 94 % 109 /min 15 /min 104 mm[Hg] 50 mm[Hg] BRITTANY FONG RN [facility] 4 14:26:52 Social History Question Answer Notes LastModified by Organizat ion Details LastModified Time Tobacco Smoking Status Former Smoker CHRISTINE MCKENZIE RN null, [facility] 06/24/2023 12:28:59 When Did You Quit Smoking? 6-10yearssin celastcigare tte Information not available 06/24/2023 At What Age Did You Start Smoking Tobacco? 13 Information not available 06/24/2023 Sex: Female Functional Status None recorded. Mental Status None recorded. Family History Relationship Description Onset Age of this Age Resolved Age Notes LastModified by Organization Details LastModified Time Mother Family history of Hypertension [email or web address] Not available 03/2023 03:53:28 Mother Family history of heart failure [email or web address] Not available 2022 03:53:29 Mother Family history of diabetes mellitus type 1 [email or web address] Not available 2022 03:53:29 Father Family history of malignant neoplasm of lung [email or web address] Not available 2022 03:53:29 Notes:*Problem: Mother DM He art disease, HTN Father Lung Cancer Medical History No medical history recorded. Gynecological HistoryNo gynecological history recorded. Obstetrics History GPAL:G 0 P 0 0 0 0 Immunizations Vaccine Type Date Status Provider Name and Address Organization Details Recorded Time Influenza, high-dose, quadrivalent, PF 06/20/2022 completed Not Available [employer] 04/24/2023 06:12:29 Past Encounters Encounter ID Performer Location Encounter Start Date Encounter Closed Date Diagnosis/Indication Diagnosis SNOMED-CT Code Diagnosis ICD10 Code [id number] NIKOLAS MATOS PA-C [facility] [address] [place] [address] 06/24/2023 11:12:48 06/24/2023 12:50:10 Type 2 diabetes mellitus without complication 870531929 E11.9 Hypertensive disorder 38 022696 I10 Chronic ob structive pulmonary disease 66021763 J44.9 Hyperlipidemia 00720495 E78.5 [id number] Apple Abad RN [facility] [address] [place] [address] 10/13/2023 10:18:52 10/13/2023 11:14:07 Type 2 diabetes mellitus without complication 523476571 E11.9 Hypertensive disorder 38 071909 I10 [id number] KIMBERLY SILVA [facility] [address] [place] [address] 08/07/2023 08:42:12 08/07/2023 10:21:19 Malaise and fatigue 868640411 R53.81 Influenza caused by Influenza B virus 23272546 J10.1 Cough 25656447 R05.9 [id number] NIKOLAS MATOS PA-C [facility] [address] [place] [address] 10/22/2023 12:39:16 10/22/2023 13:54:43 Gastroesophageal reflux disease without esophagitis 571434478 K21.9 Type 2 phu betes mellitus without complication 853937550 E11.9 Parkinson's disease 4904 9000 G20.A1 Hyperlipidemia 86239684 E78.5 Essential hypertension 27434150 I10 Chronic ob structive pulmonary disease 64981355 J44.9 [id number] NIKOLAS MATOS PA-C [facility] [address] [place] [address] 01/21/2024 14:04:57 01/21/2024 14:50:55 Type 2 diabetes mellitus without complication 579973845 E11.9 Chronic constipation 236 294367 K59.09 Gastroesop hageal reflux disease without esophagitis 031237108 K21.9 Essential hypertension 63894135 I10 Chronic ob structive pulmonary disease 76443572 J44.9 Parkinson's disease 4904 9000 G20.A1 Hyperlipidemia 55449435 E78.5 Health Concerns Section Related Observation LastModified by Organization Detai ls LastModified Time None Recorded Concern Status LastModified by Organization Details LastModified Time None Recorded Advance Directives Directive None Recorded Payers Encounter Date Sequence Insurance Name Policy Number Policy Lin Covered Member ID Lin Member ID Guarantor Name 06/24/2023 1 [place] [facility] Joon Jurado Lon [id number] Kae Forrest 06/24/2023 2 [place] [employer] Kae Forrest [id number] Kae Forrest 08/07/2023 1 [place] [facility] Joon G Lon [id number] Kae Forrest 08/07/2023 2 [place] [employer] Kae Forrest [id number] Kae Forrest 10/13/2023 1 [place] [facility] Joon Forrest [id number] Kae Forrest 10/13/2023 2 [place] [facility] Kae Forrest [id number] Kae Forrest 10/22/2023 1 [place] [facility] Joon Forrest [id number] Kae Forrest 10/22/2023 2 [place] [facility] Kae Forrest [id number] Kae Forrest 01/21/2024 1 [place] [facility] Joon Forrest [id number] Kae Forrest 01/21/2024 2 [place] [facility] Kae Forrest [id number] 2 Kae Forrest Notes Date Note Type Note Provider Name and Address Organization Details Recorded Time 06/24/2023 text/html HPI Notes: Kishor gupta is here for followup of hypertension, diabetes, and parkinsons. She has been doing fairly well. Her blood sugars have been running a bit higher - and she blames this on the holidays. Reigning this back in. Has been having some fatigue and lightheadedness during day. Using her rescue inhaler more often. [address], [place], [address], [facility] 06/24/2023 13:57:09 08/07/2023 text/html HPI Notes: Pt, 8 1-F, h/o PD, Colon cancer with partial colectomy and had colostomy reversal in remote history. Having report of intermittent fever in the setting of COPD, quit smoking 2011, no LDCT on file or recent lung imaging. Pt. reports weeks ago she developed cold symptoms, stuffy nose, cough, headache, myalgia, malaise. She reports that it seemed to be getting better after 10 or so days, but now reports intermittent low grade fever, increased cough. She has COPD and Dmii. She denies any other infection including rash, foot pain, any skin infections. [address], [place], [address], [facility]. 08/10/2023 09:14:38 10/22/2023 text/html HPI Notes: Kishor gupat is here for followup of diabetes, hypertension, hyperlipidemia, copd, and gerd. she is feeling well other than having a flare of reflux over the past few weeks despite bid ppi dosing. No change in her diet. Sour taste in her throat. Does not wake her up at night. Worse after meals. [address], [place], [address], [facility]. 10/22/2023 17:20:49 01/21/2024 text/html HPI Notes: Kishor gupta is here for follow-up of type 2 diabetes, hypertension, Parkinson's, and hyperlipidemia. She is just getting over an upper respiratory illness. Mainly in the sinuses. Initially with fevers and chills. She is turned the corner. No significant cough or shortness of breath. No significant GI symptoms along with it. Prior to that she had been doing well. Heartburn better controlled with PPI in the morning and famotidine at night. Occasional breakthrough symptoms. Continues to struggle with constipation at times. Has to take a laxative on a routine basis. Both at night in the morning routinely to keep her bowels moving. NIKOLAS MATOS PA-C [address], [place], [address], [facility], [facility]. 01/21/2024 18:19:54 OBGyn Episode No OBEpisode recorded.
--- OUTSIDE RECORDS SUMMARY | 2024-02-29 19:13 | XMS_ITS | Continuity of Care Document ---
Author Organization [facility] Address [address] [place] [address] Care Team Providers Care Ruby Developer Name Role Phone Bg Paz Primary Care Physician Encounter [facility] Date(s): 06/03/22 - 06/03/22 [facility] [address] [place] [address] Discharge Disposition: Home or Self Care Attending Physician: Barbara Gallagher Admitting Physician: Barbara Gallagher Referring Physician: Barbara Gallagher Assessment and Plan Future Appointments Results Laboratory List Name Date Amylase Level 06/03/22 CBC w/ Diff 06/03/22 Comprehensive Metabolic Panel 06/03/22 Lipase Level 06/03/22 Automated Diff 06/03/22 Most recent to oldest [Reference Range]: 1 WBC [5.0-10.0 x10^3/mcL] 7.3 x10^3/mcL (06/03/22 12:06 PM) RBC [4.1-5.3 x10^6/mcL] 4.3 x10^6/mcL (06/03/22 12:06 PM) Neutro Auto [40.0-75.0 %] 46.5 % (06/03/22 12:06 PM) Lymph Auto [20.0-50.0 %] 45.1 % (06/03/22 12:06 PM) Bulloch Auto [2.0-15.0 %] 6.2 % (06/03/22 12:06 PM) Basophil Auto [0.0-1.0 %] 0.4 % (06/03/22 12:06 PM) BUN [7-18 mg/dL] 31 mg/dL *HI* (06/03/22 12:06 PM) Glucose Level [74-106 mg/dL] 171 mg/dL *HI* (06/03/22 12:06 PM) Potassium Level [3.5-5.1 mmol/L] 4.1 mmo l/L (06/03/22 12:06 PM) MCV [80.0-96.0] 92.1 (06/03/22 12:06 PM) AST [15-37 unit/L] 39 unit/L *HI* (06/03/22 12:06 PM) Amylase Level [25-115 unit/L] 23 unit/L *LOW* (06/03/22 12:06 PM) ALT [14-59 unit/L] 68 unit/L *HI* (06/03/22 12:06 PM) MCHC [31.0-35.0 g/dL] 33.3 g/dL (06/03/22 12:06 PM) Sodium Level [136-145 mmol/L] 138 mmol/L (06/03/22 12:06 PM) Hct [37.0-47.0 %] 39.6 % (06/03/22 12:06 PM) Lipase Level [16-77 unit/L] 50 unit/L (06/03/22 12:06 PM) Calcium Level [8.5-10.1 mg/dL] 8.3 mg/dL *LOW* (06/03/22 12:06 PM) Albumin Level [3.4-5.0 g/dL] 3.6 g/dL (06/03/22 12:06 PM) Protein Total [6.4-8.2 g/dL] 7.2 g/dL (06/03/22 12:06 PM) MCH [26.0-32.0 pg] 30.7 pg (06/03/22 12:06 PM) Neutro Absolute 3.4 x10^3/mcL *NA* (06/03/22 12:06 PM) Bilirubin Total [0.2-1.0 mg/dL] 0.3 mg/d L (06/03/22 12:06 PM) Hgb [12.0-16.0 g/dL] 13.2 g/dL (06/03/22 12:06 PM) Alk Phos [46-146 unit/L] 81 unit/L (06/03/22 12:06 PM) Platelets [130-450 x10^3/mcL] 274 x10^3/ mcL (06/03/22 12:06 PM) CO2 [21-32 mmol/L] 22 mmol/L (06/03/22 12:06 PM) eGFR Non-AA [>=60] 38 *LOW* (06/03/22 12:06 PM) eGFR AA [>=60] 38 *LOW* (06/03/22 12:06 PM) Chloride Level [98-107 mmol/L] 105 mmol/ L (06/03/22 12:06 PM) RDW-CV [11.7-17.0 %] 12.8 % (06/03/22 12:06 PM) Imm Gran Auto [0.0-0.9 %] 0.3 % (06/03/22 12:06 PM) Creatinine Level [0.55-1.02 mg/dL] 1.49 mg/dL *HI* (06/03/22 12:06 PM) Eos, Auto [1.0-6.0 %] 1.5 % (06/03/22 12:06 PM) Social History Social History Type Response Sex Female Patient Care team information Personnel Name: Bg Paz MD Address: Address: [address] [place] [address]
--- OUTSIDE RECORDS SUMMARY | 2024-02-29 19:13 | XMS_ITS | Continuity of Care Document ---
Author Organization [place] - [facility] Address [address] [place] [address] Assessment No assessment recorded. Plan of Treatment Reminders Order Date Submit Date Provider Last Modified By Organization Details Last Modified Time Details Appointments None recorded. Lab hemoglobin A1C, fingerstick 2023 024 ernst 163 [facility], [address], [place], [address], 4 17:13:48 Referral general surgeon referral - chronic constipatio n with history of several sbo's. Overdue for colon cancer screening, and suggest panendoscop y given persistent gerd symptoms despite intense treatment. 2023 024 [email or web address] [facility], [address] [place] [address] , [address], [place], [address], 4 12:45:07 Procedures None recorded. Surgeries None recorded. Imaging None recorded. Medication Orders atorvastati n 20 mg tablet 2023 024 [facility], [address] [facility] [address], [place], [address], 18:19:24 Patient TargetsNo targets recorded. Patient Instructions Encounter Date Encounter Id Patient Instructions Last Modified By Organization Details Last Modified Time 01/21/2024 [id number] I will send atorvastatin to [facility] [place] to treat cholesterol. I will refer you to [facility] general surgeon for endoscopy and colonoscopy. [...] Abnormal Flag Note LastModifiedBy Organization Detail LastModifiedTime 01/21/20 24 01/21/2024 hemog lobin A1C, finge rstic k hemoglobin A1C 6.5 % <5.7 Not Available [facility] [address], [place], [address], 01/21/2024 15:02:30 02/28/20 24 08/19/2022 US, abdom en No observ ation record ed. [email or web address] Not Available 02/27 22:16:59 02/29/20 24 02/28/2024 vrad repor t Patien t Name: Bubba Kitchen Unit #: [id number] Loc: ER Orderi ng Provid er: Accoun t #: [id number] Status : PRE ER Primar y Care Provid er: Vania Houston Date of Exam: Sex: F : 1950 [...] MD. Orderi ng:Vanessa flores MD Access ion#=[id number] Ordersaurabh d By: CC: ------ ------ ------ ------ [...] report in error, please notify us immedi ately at and return the origin al report to us at the addres s above. Thank- you. INTERFACE [facility] [address], [place], [address] 02/29/2024 00:22:31 02/29/20 24 02/29/2024 CT imagi ng repor t Patien t Name: Bubba Kitchen Unit #: [id number] Loc: ER Orderi ng Provid er: Nidhi Meza t #: [id number] Status : DEP ER Primar y [...] trans sacral stimul ator as well as paper products machine operator ior epidur al leads at and above [...] to clinic al indica tion); or iterat jae recons tructi on. 022: Total DLP = [...] error, please notify us immedi juanly at [phone] and return the origin al report to us at the addres s above. Thank- you. INTERFACE [facility] [address] [facility] , [place], [address] 02/29/2024 16:04:48 Result Notes None recorded. Problems Name Problem SNOMED Code Status Onset Date Resolution Date Notes Provider Name and Address Organization Details Recorded Time Type 2 diabetes mellitus without complica tion 453380840 Active 2021 Problem Code: E11.9; Problem Code Type: ICD-10; [address], [place], [address] , [place] - [facility] 4 19:02:50 Gastroes ophageal reflux disease without esophagi tis 315568420 Active 202112/22/19 22 - Comments only - Nikolas Matos RPA - Well-con trolled on twice daily PPI. Problem Code: K21.9; Problem Code Type: ICD-10; Not Available [facility] 3 05:18:16 Obesity 125639088 Active 2021 Problem Code: E66.9; Problem Code Type: ICD-10; Not Available [facility] 3 05:18:16 Hyperlip idemia 81453556 Active 202109/20/19 23 - Comments only - Nikolas Matos RPA - She continue s on statin. Problem Code: E78.5; Problem Code Type: ICD-10; [address], [place], [address] , [facility] 4 19:00:57 Essentia l hyperten padma 88705010 Active 2021 Problem Code: I10; Problem Code Type: ICD-10; [address], [facility] [address] , [facility] 4 19:00:32 Chronic obstruct jae pulmonar y disease 58852409 Active 202109/20/19 23 - Comments only - Nikolas Matos RPA - Stable with maintena nce inhaler. Infreque nt use of rescue inhaler. Problem Code: J44.9; Problem Code Type: ICD-10; Not Available [facility] 3 05:18:17 Parkinso n's disease 92040825 Active 202112/22/19 22 - Comments only - Nikolas Matos RPA - She has a deep brain stimulat or in place. This works very well for her spasms and tremor. Problem Code: G20; Problem Code Type: ICD-10; [address], [place], [address] , [facility] 4 19:01:30 Atherosc lerosis of coronary artery without angina pectoris 83864908370 4103 Active 202101/10/20 23 - Comments only - Nikolas Matos RPA - Cath in 2019 revealed 30% RCA lesion with preserve d ejection fraction . This was done in [facility] [place]. She continue s with chronic pattern of fleeting chest pain and palpitat ions that she feels is more related to anxiety. However she has had more shortnes s of breath with exertion . Thought not be cardiac in nature by cardiolo gy. She continue s on isosorbi de mononitr ate daily. Problem Code: I25.10; Problem Code Type: ICD-10; [address], [place], [address] , [place] - [facility]. 4 11:40:10 Vitamin D deficien cy 31351974 Active 2021 Problem Code: E55.9; Problem Code Type: ICD-10; Not Available [facility] 3 05:18:17 Divertic ulitis of intestin e 214084012 Active 202112/22/19 22 - Comments only - [...] K57.92; Problem Code Type: ICD-10; Not Available [facility] 3 05:18:17 Anxiety disorder 972602945 Active 202104/22/20 22 - Comments only - Nikolas Matos RPA - She did not tolerate recent start of BuSpar. She feels hydroxyz ine used as needed is working well for her. Continue s with trazodon e at night. She has upcoming appointm ent with [facility]. Problem Code: F41.9; Problem Code Type: ICD-10; Not Available [facility] 3 05:18:17 Posttrau matic stress disorder 99649802 Active 202101/10/20 23 - Comments only - Nikolas Matos RPA - She is interest ed in continue d follow-u p with clinton zaman here. She has met with Natasha on 1 occasion . Lost to follow-u p. We will facilita te another appointm ent. Problem Code: F43.10; Problem Code Type: ICD-10; Not Available [facility] 3 05:18:18 Eczema 86831467 Active 202206/20/19 23 - Comments only - Nikolas Matos RPA - Non specific dermatit is on right forearm. Will treat with triamcin olone cream. Problem Code: L30.9; Problem Code Type: ICD-10; Not Available [facility] 3 05:18:18 Intestin al obstruct ion 23183195 Active 202201/10/20 23 - Comments only - Nikolas Matos RPA - Referral to [facility] for recurren t small bowel obstruct ion over the past year. Her bowels continue to be variable . Constipa tion alternat ing with diarrhea . Occasion al blood in the stool. We do not have a colonosc opy for her on record though by her history she has had one in [facility] before moving to [place]. [facility] ed fiber rich diet. Problem Code: K56.609; Problem Code Type: ICD-10; Not Available [facility] 3 05:18:18 Nausea and vomiting 41666190 Completed 202109/19/2022 Problem Code: R11.2; Problem Code Type: ICD-10; Not Available [facility] 3 05:18:18 Diarrhea 44477730 Completed 202109/19/2022 Problem Code: R19.7; Problem Code Type: ICD-10; Not Available [facility] 3 05:18:18 Dizzines s and giddines s 452293355 Completed 202109/19/2022 Problem Code: R42; Problem Code Type: ICD-10; Not Available [facility] 3 05:18:19 Left upper quadrant pain 120019040 Completed 202109/19/2022 Problem Code: R10.12; Problem Code Type: ICD-10; Not Available [facility] 3 05:18:19 Essentia l tremor 454403885 Active 202204/02/20 23 - Comments only - Nikolas Matos RPA - [facility] neurolog y - trial of topamax 03/2023 Problem Code: G25.0; Problem Code Type: ICD-10; Not Available [facility] 4 05:35:33 Problem Notes None recorded. Medical Equipment None Reported. Allergies Allergen ID Allergen Name Allergen Category Reaction Reaction Severity Criticality Documentation Date Start Date Code Code System Note Provider Name and Address Organization Details Recorded Time 37267 Valium medicatio n hives moderate Not available 04/24/20232021 16117 2 RxNorm hives Not Available [facility] 3 16:31:08 11841 Demerol medicatio n hives moderate Not available 04/24/20232021 16846 1 RxNorm hives Not Available [facility] 3 16:31:08 02509 Toradol medicatio n hives moderate Not available 04/24/20232021 35373 RxNorm hives Not Available [facility] 3 16:31:08 20203 Medicinal product containin g penicilli n and acting as antibacte rial agent (product) medicatio n anaphylax is Not available Not available 04/24/20232021 88849 05 SNOMED anaph ylaxi s Not Available [facility] 3 16:31:09 57223 morphine sulfate medicatio n vomiting moderate Not available 04/24/20232021 83286 RxNorm vomit ing Not Available [facility] 3 16:31:09 45043 codeine medicatio n hives moderate Not available 04/24/20232021 2670 RxNorm hives Not Available [facility] 3 16:31:10 46849 Iodinated contrast media (substanc e) medicatio n Not available Not available Not available 06/24/2023 79745 2003 SNOMED CHRISTINE MCKENZIE RN [facility], [place] - [facility]. 4 12:27:01 Medications Name Sig Start [...] by mouth once a day 06/20 completed [facility] neurolog y Not Available Not Available Not [...] twice a day use for 7 consecut jae days at most and then take a [...] Not Available Pen Needle 31 gauge x 5/16 05/06 completed Not Available Not Available Not Available [...] Avai lable Vitals Date Recorded Body height Body mass index (BMI) Body weight Body temperature Oxygen saturation Oxygen saturation in Arterial blood by Pulse oximetry Heart rate Respiratory rate Systolic blood pressure Diastolic blood pressure Provider Name and Address Organization Details Last Updated DateTime 4 157 cm 29.6 kg/m2 33098.3 7 g 98.3 [degF] 94 % 94 % 109 /min 15 /min 104 mm[Hg] 50 mm[Hg] BRITTANY FONG RN [place] - [facility] 4 14:26:52 Social History Question Answer Notes LastModified by Organizat ion Details LastModified Time Tobacco Smoking Status Former Smoker CHRISTINE MCKENZIE RN [facility], [place] - [facility] 06/24/2023 12:28:59 When Did You Quit Smoking? 6-10yearssin celastcigoldy tte Information not available 06/24/2023 At What Age Did You Start Smoking Tobacco? 13 Information not available 06/24/2023 Sex: Female Functional Status None recorded. Mental Status None recorded. Family History Relationship Description Onset Age of this Age Resolved Age Notes Mother Family history of Hypertension Mother Family history of he art failure Mother Family history of di abetes mellitus type 1 Father Family history of malignant neoplasm of lung Notes:*Problem: Mother DM He art disease, HTN Father Lung Cancer Medical History No medical history recorded. Gynecological HistoryNo gynecological history recorded. Obstetrics History GPAL:G 0 P 0 0 0 0 Immunizations Vaccine Type Date Status Provider Name and Address Organization Details Recorded Time Influenza, high-dose, quadrivalent, PF 06/20/2022 completed Not Available [facility] 04/24/2023 06:12:29 Past Encounters Encounter ID Performer Location Encounter Start Date Encounter Closed Date Diagnosis/Indication Diagnosis SNOMED-CT Code Diagnosis ICD10 Code [id number] NIKOLAS MATOS PA-C [address] [place] [address] 01/21/2024 14:04:57 01/21/2024 14:50:55 Type 2 diabetes mellitus without complication 147815305 E11.9 Chronic constipation 236 632660 K59.09 Gastroesop hageal reflux disease without esophagitis 181400530 K21.9 Essential hypertension 88714968 I10 Chronic ob structive pulmonary disease 94350538 J44.9 Parkinson's disease 4904 9000 G20.A1 Hyperlipidemia 25027763 E78.5 Health Concerns Section Related Observation LastModified by Organization Detai ls LastModified Time None Recorded Concern Status LastModified by Organization Details LastModified Time None Recorded Payers Encounter Date Sequence Insurance Name Policy Number Policy Lin Covered Member ID Lin Member ID Guarantor Name 01/21/2024 1 [place] [facility] Joon Forrest [id number] Kae Forrest 01/21/2024 2 [place] [employer] Kae Forrest [id number] Kae Saurabh Lon Notes Date Note Type Note Provider Name and Address Organization Details Recorded Time 01/21/2024 text/html HPI Notes: Kishor gupta is [...] moving. NIKOLAS MATOS PA-C [address], [place], [address], [facility] - [facility]. 01/21/2024 18:19:54 OBGyn Episode No OBEpisode recorded.
--- OUTSIDE RECORDS SUMMARY | 2024-02-29 19:14 | XMS_ITS | Continuity of Care Document ---
Author Organization [facility] Address [address] [place] [address] Care Team Providers Care Dental Manager Name Role Phone Nikolas Matos Primary Care Physician Encounter [facility] Date(s): 08/18/22 - 08/20/22 [facility] [address] [place] [address] [place] Encounter Diagnosis Other chronic pain(Discharge Diagnosis) - 08/18/22 Epiploic appendagitis(Discharge Diagnosis) - 08/18/22 Partial small bowel obstruction(Discharge Diagnosis) - 08/18/22 Constipation(Discharge Diagnosis) - 08/18/22 Diverticulitis(Discharge Diagnosis) - 08/18/22 Hypertension(Discharge Diagnosis) - 08/18/22 Type 2 diabetes mellitus(Discharge Diagnosis) - 08/18/22 Chronic obstructive pulmonary disease(Discharge Diagnosis) - 08/18/22 Depression(Discharge Diagnosis) - 08/19/22 Discharge Disposition: Left Against Medical Advice Attending Physician: Grayson Garza MD Admitting Physician: Grayson Garza MD Allergies, Adverse Reactions, Alerts Substance Reaction Severity Status codeine Hives Unknown Active penicillin Anaphylaxis Severe Active morphine Vomiting Unknown Active Demerol Hives Unknown Active Toradol Hives Unknown Active Stadol Rash Unknown Active Valium Unknown Active Tylenol Petechiae Unknown Active contrast media (iodine-based) Rash Mild Active Assessment and Plan Future Appointments Functional Status 08/20/22 Living Environment No Living Environmen t Information Available Lives In Single level home Lives With Spouse Home Barriers None Patient's Responsibilities Financial man agement, Home management, Housework, Laundry, Meal preparation, Personal ADL, Shopping Number of Stairs Inside 0 Number of Stairs Outside 4 08/19/22 Activity Status ADL Up to toilet Personal Care Provided Gown change, Partial bath 08/18/22 Family Member Travel History No recent t lilael Recent Travel History No recent travel Other [...] 0 Refill(s) Start Date: 08/19/22 Status: Ordered aspirin 81 mg oral capsule 81 mg = 1 cap, Oral, Daily, 0 Refill(s) Start Date: 06/18/22 Status: Ordered Bydureon Pen 2 mg subcutaneous injection, extended release 2 mg =, Subcutaneous, every week, # 4 EA, 0 Refill(s) Start Date: 08/19/22 Status: Ordered clotrimazole-betamethasone dipropionate 1%-0.05% topical cream 1 erica, Topical, BID, # 45 g, 0 Refill(s), Pharmacy: [id number] Start Date: 08/05/22 Status: Ordered diphenhydrAMINE 25 [...] 0 Refill(s) Start Date: 08/05/22 Status: Ordered losartan 100 mg oral tablet [...] Refill(s) Start Date: 06/18/22 Status: Ordered traZODone 100 mg oral tablet See Instructions, 1 tab Oral every night at bedtime, 0 Refill(s) Start Date: 06/18/22 Status: Ordered Trulicity Pen 0.75 mg/0.5 mL subcutaneous solution 0.75 mg =, Subcutaneous, every week, rotate injection sites, # 2 mL, 0 Refill(s) Start Date: 08/19/22 Status: Ordered Problem List Condition Confirmation Course [...] Results Laboratory List Name Date Glucose POCT 08/20/22 Basic Metabolic Panel 08/20/22 CBC w/ Diff 08/20/22 Magnesium Level 08/20/22 Automated Diff 08/20/22 Glucose POCT 08/20/22 Glucose POCT 08/19/22 C-Reactive Protein High Sensitivity (CRP High Sensitivity (CV Risk)) 08/19/22 Lactic Acid 08/19/22 Automated Diff 08/19/22 Basic Metabolic Panel 08/19/22 CBC w/ Diff 08/19/22 Magnesium Level 08/19/22 SARS-CoV-2 (COVID-19) RNA (ID Now) 3 Urinalysis with Micro if Indicated and C ulture if Indicated 08/18/22 Urinalysis Microscopic 08/18/22 CBC w/ Diff 08/18/22 Comprehensive Metabolic Panel (CMP) Lipase Level 08/18/22 Automated Diff 08/18/22 Most recent to oldest [Reference Range]: 1 2 3 WBC [5.0-10.0 x10^3/mcL] 4.2 x10^3/mcL *LOW* (08/20/22 7:01 AM) 7.4 x10^3/mcL (08/19/22 6:50 AM) 7.0 x10^3/mcL (08/18/22 4:42 PM) RBC [4.1-5.3 x10^6/mcL] 4.1 x10^6/mcL (08/20/22 7:01 AM) 4.5 x10^6/mcL (08/19/22 6:50 AM) 4.5 x10^6/mcL (08/18/22 4:42 PM) Neutro Auto [40.0-75.0 %] 45.6 % (08/20/22 7:01 AM) 67.5 % (08/19/22 6:50 AM) 50.5 % (08/18/22 4:42 PM) Lymph Auto [20.0-50.0 %] 38.8 % (08/20/22 7:01 AM) 19.9 % *LOW* (08/19/22 6:50 AM) 36.2 % (08/18/22 4:42 PM) [place] Auto [2.0-15.0 %] 9.0 % (08/20/22 7:01 AM) 8.3 % (08/19/22 6:50 AM) 7.9 % (08/18/22 4:42 PM) Basophil Auto [0.0-1.0 %] 0.7 % (08/20/22 7:01 AM) 0.5 % (08/19/22 6:50 AM) 0.6 % (08/18/22 4:42 PM) BUN [7-18 mg/dL] 15 mg/dL (08/20/22 7:01 AM) 20 mg/dL *HI* (08/19/22 6:50 AM) 23 mg/dL *HI* (08/18/22 4:42 PM) Glucose POC [74-106 mg/dL] 121 mg/dL *HI* (08/20/22 8:28 AM) 131 mg/dL *HI* (08/20/22 2:12 AM) 129 mg/dL *HI* (08/19/22 8:47 PM) UA Color Yellow (08/18/22 8:05 PM) UA WBC [0-3] 0-3 (08/18/22 8:05 PM) Glucose Level [74-106 mg/dL] 133 mg/dL *HI* (08/20/22 7:01 AM) 155 mg/dL *HI* (08/19/22 6:50 AM) 163 mg/dL *HI* (08/18/22 4:42 PM) Potassium Level [3.5-5.1 mmol/L] 4.0 mmol/L (08/20/22 7:01 AM) 4.2 mmol/L (08/19/22 6:50 AM) 4.1 mmol/L (08/18/22 4:42 PM) MCV [80.0-96.0] 97.3 *HI* (08/20/22 7:01 AM) 95.4 (08/19/22 6:50 AM) 94.0 (08/18/22 4:42 PM) UA Urobilinogen Normal (08/18/22 8:05 PM) UA Bili [Negative] Negative (08/18/22 8:05 PM) UA Ketones Negative (08/18/22 8:05 PM) AST [15-37 unit/L] 23 unit/L (08/18/22 4:42 PM) ALT [14-59 unit/L] 32 unit/L (08/18/22 4:42 PM) MCHC [31.0-35.0 g/dL] 31.8 g/dL (08/20/22 7:01 AM) 32.1 g/dL (08/19/22 6:50 AM) 32.9 g/dL (08/18/22 4:42 PM) Sodium Level [136-145 mmol/L] 139 mmol/L (08/20/22 7:01 AM) 139 mmol/L (08/19/22 6:50 AM) 135 mmol/L *LOW* (08/18/22 4:42 PM) UA RBC [0-2] 0-2 (08/18/22 8:05 PM) UA Leuk Est Negative (08/18/22 8:05 PM) UA Nitrite Negative (08/18/22 8:05 PM) UA Glucose [Negative] 3+ *ABN* (08/18/22 8:05 PM) Hct [37.0-47.0 %] 39.6 % (08/20/22 7:01 AM) 43.3 % (08/19/22 6:50 AM) 42.2 % (08/18/22 4:42 PM) UA Bacteria Rare /HPF (08/18/22 8:05 PM) Lipase Level [16-77 unit/L] 50 unit/L (08/18/22 4:42 PM) Calcium Level [8.5-10.1 mg/dL] 8.2 mg/dL *LOW* (08/20/22 7:01 AM) 8.8 mg/dL (08/19/22 6:50 AM) 9.1 mg/dL (08/18/22 4:42 PM) Albumin Level [3.4-5.0 g/dL] 3.9 g/dL (08/18/22 4:42 PM) Protein Total [6.4-8.2 g/dL] 7.8 g/dL (08/18/22 4:42 PM) UA Protein Negative (08/18/22 8:05 PM) MCH [26.0-32.0 pg] 31.0 pg (08/20/22 7:01 AM) 30.6 pg (08/19/22 6:50 AM) 31.0 pg (08/18/22 4:42 PM) Magnesium Level [1.8-2.4 mg/dL] 2.1 mg/dL (08/20/22 7:01 AM) 2.0 mg/dL (08/19/22 6:50 AM) Neutro Absolute 1.9 x10^3/mcL *NA* (08/20/22 7:01 AM) 5.0 x10^3/mcL *NA* (08/19/22 6:50 AM) 3.5 x10^3/mcL *NA* (08/18/22 4:42 PM) Bilirubin Total [0.2-1.0 mg/dL] 0.3 mg/dL (08/18/22 4:42 PM) Hgb [12.0-16.0 g/dL] 12.6 g/dL (08/20/22 7:01 AM) 13.9 g/dL (08/19/22 6:50 AM) 13.9 g/dL (08/18/22 4:42 PM) Alk Phos [46-146 unit/L] 62 unit/L (08/18/22 4:42 PM) UA Blood Trace *ABN* (08/18/22 8:05 PM) UA Mucous None Seen /HPF (08/18/22 8:05 PM) UA Spec Grav 1.015 *NA* (08/18/22 8:05 PM) Platelets [130-450 x10^3/mcL] 188 x10^3/mcL (08/20/22 7:01 AM) 227 x10^3/mcL (08/19/22 6:50 AM) 245 x10^3/mcL (08/18/22 4:42 PM) CO2 [21-32 mmol/L] 25 mmol/L (08/20/22 7:01 AM) 28 mmol/L (08/19/22 6:50 AM) 26 mmol/L (08/18/22 4:42 PM) Lactic Acid Lvl [0.7-2.1 mmol/L] 1.1 mmol/L (08/19/22 8:18 AM) UA Squam Epithelial [None Seen] Rare (08/18/22 8:05 PM) UA pH 5.5 *NA* (08/18/22 8:05 PM) eGFR Non-AA [>=60] 78 (08/20/22 7:01 AM) 77 (08/19/22 6:50 AM) 77 (08/18/22 4:42 PM) eGFR AA [>=60] 78 (08/20/22 7:01 AM) 77 (08/19/22 6:50 AM) 77 (08/18/22 4:42 PM) UA Appear Clear (08/18/22 8:05 PM) Chloride Level [98-107 mmol/L] 105 mmol/L (08/20/22 7:01 AM) 103 mmol/L (08/19/22 6:50 AM) 100 mmol/L (08/18/22 4:42 PM) RDW-CV [11.7-17.0 %] 13.4 % (08/20/22 7:01 AM) 13.2 % (08/19/22 6:50 AM) 13.2 % (08/18/22 4:42 PM) Imm Gran Auto [0.0-0.9 %] 0.2 % (08/20/22 7:01 AM) 0.4 % (08/19/22 6:50 AM) 0.4 % (08/18/22 4:42 PM) CRP High Sens [0.00-3.00 mg/L] 4.37 mg/L *HI* (08/19/22 8:18 AM) UA Culture Ind?. Not Indicated (08/18/22 8:05 PM) Creatinine Level [0.55-1.02 mg/dL] 0.81 mg/dL (08/20/22 7:01 AM) 0.82 mg/dL (08/19/22 6:50 AM) 0.82 mg/dL (08/18/22 4:42 PM) SARS-CoV-2 (COVID-19) RNA (ID Now) [Not Detected] Not Detected (08/18/22 9:09 PM) Eos, Auto [1.0-6.0 %] 5.7 % (08/20/22 7:01 AM) 3.4 % (08/19/22 6:50 AM) 4.4 % (08/18/22 4:42 PM) UA Yeast [None Seen] Rare *ABN* (08/18/22 8:05 PM) Vital Signs Most recent to oldest [Reference Range]: 1 2 3 Temperature Temporal Artery [36-38 Deg C] 36.2 Deg C (08/20/22 6:45 AM) 36.4 Deg C (08/20/22 2:15 AM) 36.4 Deg C (08/19/22 10:15 PM) Temperature Temporal Artery (DegF) [97.3-100 Deg F] 97.88 Deg F (08/18/22 10:38 PM) Peripheral Pulse Rate [60-100 bpm] 79 bpm (08/20/22 6:45 AM) 85 bpm (08/20/22 2:15 AM) 81 bpm (08/19/22 10:15 PM) Heart Rate Monitored [60-100 bpm] 80 bpm (08/20/22 7:19 AM) 96 bpm (08/19/22 6:59 PM) 98 bpm (08/19/22 7:30 AM) Respiratory Rate [12-24 br/min] 16 br/min (08/20/22 7:19 AM) 18 br/min (08/20/22 6:45 AM) 20 br/min (08/20/22 2:15 AM) Blood Pressure [90-140/60-90 mmHg] 148/74mmHg *HI* (08/20/22 6:45 AM) 133/67mmHg (08/20/22 2:15 AM) 133/69mmHg (08/19/22 10:15 PM) Mean Arterial Pressure Cuff 95 mmHg (08/20/22 6:45 AM) 87 mmHg (08/20/22 2:15 AM) 79 mmHg (08/19/22 10:15 PM) Blood Pressure Location Right arm (08/20/22 2:15 AM) Weight 76.8 kg (08/20/22 6:45 AM) 77 kg (08/19/22 6:53 AM) Weight Dosing 76.00 kg (08/18/22 3:41 PM) Weight Estimated 76.00 kg (08/18/22 3:34 PM) Height/Length Dosing 158.000 cm (08/18/22 3:41 PM) Height/Length Estimated 158.000 cm (08/18/22 3:34 PM) Social History Social History Type Response Tobacco Former tobacco user Tobacco Use:. quit 2011 per day. Sex Female EKG study * Event Display: Telemetry Strips Please click on link to view image. * Event Display: Telemetry Strips Please click on link to view image. Pharmacology Progress note * Radha Carrillo PharmD: PERFORM Event Display: Pharmacy Progress Note Authored Date: [id number] Pharmacy Progress Note Med Rec updated with King Wong Electronically Signed on 08/19/22 01:40 PM Radha Carrillo PharmD Respiratory therapy Hospital Progress note * Esther Crain: PERFORM Event Display: Respiratory Therapy Progress Note Authored Date: [id number] ??KAE BROWN 71 Years MEASURED Body Mass Index: 30.44 kg/m2 (08/05/22 13:39:00) BSA Measured: 1.83 m2 (08/05/22 13:39:00) Height: 158 cm (08/05/22 13:39:00) Weight: 76.8 kg (08/20/22 06:45:39) DOSING Height/Length Dosin cm (08/18/22 15:41:21) Weight Dosin kg (08/18/22 15:41:21) Respiratory Shift Summary Breath Sounds: Clear Shift Treatments: Symbicort Respiratory Protocol??Aerosol Therapy Assessment and Scoring Home [...] second breath hold? Yes Respiratory total Score: 3 Respiratory Guidelines 3-4 pts - Q6 PRN for SOB Electronically Signed on 08/20/22 07:21 AM Esther Crain * Wing Atsorga: PERFORM Event Display: Respiratory Therapy Progress Note Authored Date: ??KAE BROWN 71 Years MEASURED Body Mass Index: 30.44 kg/m2 (08/05/22 13:39:00) BSA Measured: 1.83 m2 (08/05/22 13:39:00) Height: 158 cm (08/05/22 13:39:00) Weight: 77 kg (08/19/22 06:53:59) DOSING Height/Length Dosin cm (08/18/22 15:41:21) Weight Dosin kg (08/18/22 15:41:21) Respiratory Shift Summary Breath Sounds: Clear Shift Treatments: BID Symbicort; X1 PRN Albuterol MDI per home routine Shift Events: None Respiratory Protocol??Aerosol Therapy Assessment and Scoring Lung History (1) Smoking history less than 1 pack/day, History of lung disease(Asthma) Breath Sounds (0) Clear in all pearl Respiratory Rate (1)??19-25 Modified Rosaline Scale or Observed Dyspnea (0) [...] Q6 PRN for SOB Electronically Signed on 08/20/22 02:27 AM Wing Astorga * Esther Crain: PERFORM Event Display: Respiratory Therapy Progress Note Authored Date: [id number] ??KAE BROWN 71 Years MEASURED Body Mass Index: 30.44 kg/m2 (08/05/22 13:39:00) BSA Measured: 1.83 m2 (08/05/22 13:39:00) Height: 158 cm (08/05/22 13:39:00) Weight: 77 kg (08/19/22 06:53:59) DOSING Height/Length Dosin cm (08/18/22 15:41:21) Weight Dosin kg (08/18/22 15:41:21) Respiratory Shift Summary Breath Sounds: Clear Respiratory Protocol??Aerosol Therapy Assessment and Scoring Home Medication Routine: Patient uses Advair at home. Patient is observation status so will hold off on ordering Symbicort substitute. Lung History (1) Smoking history less than [...] second breath hold? Yes Respiratory total Score: 3 Respiratory Guidelines 3-4 pts - Q6 PRN for SOB Electronically Signed on 08/19/22 07:33 AM Esther Crain Physical therapy Progress note * Carmelo Roman PT, DPT: PERFORM, MODIFY, MODIFY Event Display: Physical Therapy Progress Note Authored Date: [id number] Patient ID and date of checked:??Yes verbally *Current Level of Care: Observation *Admitting Diagnosis: Abdominal pain *Therapy Diagnosis: Decreased functional mobility Pertinent Medical History: Kae is a 71 year old who presents with ongoing abdominal pain for 2-3 weeks. Most of her pain is L sided. She is less stable than usual but she attributes that partially to having her DBS turned off which helps with her Parkinson's sx and overall stability. Active Problems: Cardiac arrhythmia Chronic low back pain Chronic obstructive pulmonary disease Claustrophobia Constipation Coronary artery disease Crohn's disease Depression Diverticulitis GERD (gastroesophageal reflux disease) Hypercholesteremia Hypertension Insomnia Obesity Osteoarthritis of left knee Osteoporosis Parkinsons disease Type 2 diabetes mellitus *Subjective: Pt willing to participate in supine. She reports pain through her L side which is sig (10/10). Pt has complete loss of balance without AD needing modA. Pt is receptive to recommendation to use RW provided for safety and to use call light. Pt positioning and alarm status at end of tx: Pt in supine with bed alarm on and call light within reach. Hand Dominance: Right *Barriers to Learning: None Communication Cultural Education level Hearing Language Vision ??x Physical Cognitive Motivational Emotional Precautions: ??x Standard precautions MRSA/VRE Contact precautions Droplet precautions Airborne precautions Covid precautions Total hip replacement Total knee replacement Total shoulder replacement Fall risk *Previous Level of Function: Pt lives with her in a house. She is I with all mobility and does not use any AD. 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 Living Situation/Level of Supervision: I with her ?Living Environment: house ?Stairs/Ramps: 4 steps to enter ?Home Equipment: no AD *Current Level of Function: Sig below baseline Pain: ?10/10 abdominals on L sided Vision/Hearing: WNL Cognition: ??Cognition is WNL Passive/Active Range of Motion: WFL Manual Muscle Testing: Held due to severity of pain Bed Mobility: Activity Assistance Comments Rolling Scooting/Repositioning Supine to Sit ??I Sit to Supine ??I Transfers: Activity Assistive Device Assistance Comments Sit to Stand ??no AD and RW Stand to Sit ?? Bed to Chair Chair to Bed Shower Transfer Toilet Transfer Ambulation: Assistance Assistive Device Distance Comments ??CGA-ModA with complete LOB with no AD; SBA-CGA with RW ??No AD and RW ??100' with no AD and 120' with RW ??Pt has complete LOB to the R needing modA to avoid fall. Pt does sig better with RW. Stairs: Pt not willing to attempt stairs today Assistance Assistive Device # Steps Comments Wheelchair Mobility: Assistance Distance Comments Balance: ?? Static Sitting: Good ?Dynamic Sitting: Good ?Static Standing: Fair ?Dynamic Standing: Fair- *Standardized Testing: Standardized Test: [facility] Functional Impairment Rating ? Score: 6 ? Comments: 30% functional mobility impairment *Patient Education: ?? recommendation to use RW provided for safety and to use call light. *Physical Therapy Assessment: Kae is a 71 year old who presents with ongoing abdominal pain for 2-3 weeks. Most of her pain is L sided. She is less stable than usual but she attributes that partially to having her DBS (deep brain stimulation) turned off which helps with her Parkinson's sx and overall stability. With currentmobility level pt should use RW and DC with RW for fall prevention. Discussed pt case at DC planning and trisha be able to take pt off of cardiac monitoring which is the reasoning for her DBS being turned off at which time her mobility will be assessed again. Pt should have home health physical therapy which was discussed with her which she refuses at this time. Pt will benefit from skilled physical therapy during her stay for best chance at returning to [facility]. *Rehab Potential: Good?_ *Short Term Goals?time frame: Defer to LTGs *Rouge Sifter Goals?time frame: 3 days ??I with ambulation with LRAD. I with all transfers with LRAD. Access mobility with DBS (deep brain stimulation) turned on. *Patient Goals: To improve her pain PT Plan of Care (as per below) *Treatment Duration: until goals are met *Treatment Frequency: M-Sat *Treatment Intensity: 30 min *Planned Treatment Interventions: ??x CPT 12427: Therapeutic Exercise ??x CPT 60237: Therapeutic Activity ??x CPT 65109: Gait Training ??x CPT 92100: Neuromuscular Re-education ??x CPT 18700: Self-Care/Home Management CPT 28085: Manual Therapy CPT 84593: Ultrasound CPT G0283: Electrical Stimulation CPT 20499: Initial Orthotic Fit/Train CPT 76440: Initial Prosthetic Train CPT 39809:??Subsequent??Orthotic??Check CPT 94694:??Wheelchair??Management??Training *Discharge Plan:?Upon meeting therapy goals, max therapy benefit, or discharge from facility. Discharge Recommendations: ?? Home equipment needs: RW ?Post discharge Rehab needs: _?Pt refuses home health PT when it is suggested ?? Disposition: _ ?Supervision needs: _ ?Discussed plan of care with: Pt, CM, MD *Evaluation Procedure Documentation: CPT 69802: Low Complexity PT Evaluation:?16 minutes Physical Therapy Evaluation performed. History involves 3 or more personal factors and/or comorbidities. Examination of body system(s) includes 1-2 elements. Clinical presentation is evolving. Clinical decision making is low. *Total Time: 16 min *Time In: 922 *Time Out: 938 Electronically Signed on 08/19/22 04:26 PM Carmelo Roman PT, DPT History and physical note * Maddie Sun: PERFORM Event Display: History and Physical Authored Date: [id number] KAE BROWN :1950 Age:71 years Sex:Female Visit Date:08/18/2022 Primary Care Physician: Nikolas Matos DO Chief Complaint Abdominal pain, constipation and nausea History of Present Illness This is a 71-year-old?? female patient??with a past medical history of??hypertension, diabetes, multiple bowel surgeries??including resection??with a colostomy for 6 months??that was reversed, who presented to??the [facility] emergency department??today??complaining of abdominal pain for 2 to 3 weeks??with intermittent constipation.?? She has been taking??stool softeners and laxatives??with what she describes as partial??relief. She asked her to bring her to the emergency department.?? In the emergency department WBC 7.0, H&H 13 and 42, sodium 135, potassium 4.1,??glucose 163,??creatinine 0.82??urine negative,??CT of the??abdomen and pelvis??limited secondary to her IV contrast allergy; no evidence of diverticulitis; 17 mm slightly inflamed fat density??in the distal sigmoidcolon suspicious for mild??epiploic??Appendagitis; mild dilation of the jejunum; radiology??impression cannot exclude early or partial small bowel obstruction consider??short-term imaging follow-up or limited small bowel follow-through??assessment as clinically indicated.??Patient??refused NG tube.? Patient was actively vomiting and received ondansetron??with minor relief.? Vital signs inthe emergency department ??heart rate??90??sinus rhythm, blood pressure 145/83,??SPO2??98% RA RR 16. She continued to have pain and nausea. ?? She was placed on PCU??on observation status??with plan for??GGF ??in the morning and surgical consult. Review of Systems in addition to that documented in the HPI above, the additional ROS was obtained: Constitutional: Denies fevers or chills Eyes: Denies vision changes ENMT: Denies sore throat CV: Denies chest pain Resp: Denies SOB GI:??Endorses vomiting??; denies??diarrhea : Denies painful urination MSK: Denies recent trauma Skin: Denies new rashes Neuro: Denies new numbness or tingling or weakness Endocrine: Denies unexpected weight loss Heme: Denies bleeding disorders Physical Exam Vitals & Measurements T:??36.6?C ??(Temporal Artery)?? TMIN:??36.6?C ??(Temporal Artery)?? TMAX:??36.9?C ??(Temporal Artery)?? HR:??95??(Peripheral)?? RR:??18?? BP:??172/90?? SpO2:??95%?? HT:??158.000??cm?? WT:??76.00??kg??(Estimated)?? Pain Score:??5?? O2 Therapy:??Room air?general: Awake, alert and oriented. No acute distress. Well developed, hydrated and nourished. Appears stated age. ?? Skin: Skin in warm, dry and intact without rashes or lesions. Appropriate color for ethnicity. Nailbeds pink with no cyanosis or clubbing. ?? Head: The head is normocephalic and atraumatic without tenderness, visible or palpable masses, depressions, or scarring. Hair is of normal texture and evenly distributed. ?? Eyes: Conjunctivae are clear without exudates or hemorrhage. Sclera is non- icteric. EOM are intact,PERRLA. No signs of nystagmus. Eyelids are normal in appearance without swelling or lesions. ?? Ears: The external ear and ear canal are non-tender and without swelling. The canal is clear without discharge.?? Hearing is intact with good acuity to whispered voice. ?? Nose: Nasal mucosa is pink and moist. The nasal septum is midline. Nares are patent bilaterally. ?? Throat: Oral mucosa is pink and moist with good dentition. Tongue normal in appearance without lesions and with good symmetrical movement.?? The pharynx is normal in appearance without tonsillar swelling or exudates. ?? Neck: The neck is supple without adenopathy. Trachea is midline. Thyroid gland is normal without mass. Carotid pulse 2+ bilaterally without bruit. No JVD. ?? Cardiac: The external chest is normal in appearance without lifts, heaves, or thrills. PMI is not visible and is palpated in the 5th intercostal space at the midclavicular line. Heart rate and rhythmare normal. No murmurs, gallops, or rubs are auscultated. S1 and S2 are heard and are of no intensity. ?? Respiratory: The chest wall is symmetric and without deformity. No signs of trauma. Chest wall is non-tender. No signs of respiratory distress. Lung sounds are clear in all lobes bilaterally without rales, ronchi, or wheezes. ?? Abdominal: Abdomen is soft, symmetric, and tender with some noted??distention.??Old surgical scars an ostomy revision noted. ??The aorta is midline without bruit or visible pulsation.??Bowel sounds are present and hypoactive in all four quadrants. No masses, hepatomegaly, or splenomegaly are noted. ?? Genital/Rectal: Deferred ?? Spine: Neck and back are without deformity, external skin changes, or signs of trauma. Curvature ofthe cervical, thoracic, and lumbar spine are within normal limits.?? No tenderness noted on palpation of the spinous processes. Spinous processes are midline. Cervical, thoracic, and lumbar paraspinal muscles are not tender and are without spasm.?? Straight leg raise test is negative bilaterally. Sensation to the upper and lower extremities is normal bilaterally. No clonus is noted. 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 Dorsi/plantar flexion is normal bilaterally. Extremities: Upper and lower extremities are atraumatic in appearance without tenderness or deformity. No swelling or erythema. Full range of motion is noted to all joints. Muscle strength is 5/5 bilaterally. Capillary refill is less than 3 seconds in all extremities. Pulses palpable. Steady gait noted. ?? Neurological: The patient is awake, alert and oriented to person, place, and time with normal speech. Motor function is normal with muscle strength 5/5 bilaterally to upper and lower extremities. Sensation is intact bilaterally. Reflexes 2+ bilaterally. Cranial nerves are intact. Cerebellar??function is intact. Memory is normal and thought process is intact. No gait abnormalities are appreciated. ?? Psychiatric: Appropriate mood and affect. Good judgement and insight. No visual or auditory hallucinations. No suicidal or homicidal ideation. Assessment/Plan 2.??Epiploic appendagitis??K63.89 Severe left mid abd pain with vomiting, CT Abd/Pelvis: Impression per radiologist: There is a 17 mm slightly inflamed fat density focus at the?? leftward margin of the distal sigmoid colon suspicious for mild?? epiploic appendagitis although this might represent a small focus of?? 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 NPO, antiemetics, IVF, pain mgt, repeat studies; recommend GGF follow up study; Surgery consult ?? 3.??Partial small bowel obstruction??K56.600 CT Abd/Pelvis??- limited, no IV contrast secondary to allergy. ?? 1.? No evidence of diverticulitis.?? 2.? There is mild dilatation of the jejunum transitioning to?? nondilated ileum in the region of the left mid abdominal small bowel?? anastomosis. Can not exclude early or partial small bowel?? obstruction, consider short-term imaging follow-up or limited?? small-bowel follow-through assessment as clinically indicated.?? 3. ?? Mild hepatomegaly with moderate generalized fatty infiltration?? of the liver.? Dilaudid for abdominal pain Ondansetron for nausea/vomiting NPO Surgery consult Refuses NGT GGF followup in am ?? Ordered: PSO Place in Observation, Observation, Observation, Syed Ravi DO, 08/18/22 21:14:00 EST, 08/18/22 21:14:00 EST, 08/18/22 21:14:00 EST, Less than 96 hours ?? 4.??Chronic obstructive pulmonary disease??J44.9 Chronic, no oxygen requirement; continue home inhalers ?? 5.??Constipation??K59.00 Reports years of chronic constipation, she takes laxatives and stool softers all the time; she had taken exlax and did have 3 bowel movements, formed and substantial per her history, however continued to have pain; ? 6.??Diverticulitis??K57.92 as above ?? 7.??Hypertension??I10 Chronic, monitor; continue home meds ?? 8.??Type 2 diabetes mellitus??E11.9 Finger sticks?? q 6h while NPO then AC HS when taking fluids/solids - diabetic diet SS insulin ? 9.??Depression??F32.A Chronic, continue home meds ?? Other chronic pain??G89.29 ?? Orders: albuterol, 180 mcg, Inhale, Aerosol, every 4 hr, PRN wheezing, First Dose: 08/18/22 21:18:00 EST, Routine atorvastatin, 5 mg = 0.5 tab, Oral, Tab, every evening, First Dose: 08/19/22 18:00:00 EST, Physician Stop, Routine Benadryl, 25 mg = 0.5 mL, IV Push, Soln-IV, every 6 hr, PRN allergy symptoms, First Dose: 08/19/22 0:07:00 EST, Routine Jardiance, 10 mg = 1 EA, Oral, Tab, every morning, First Dose: 08/19/22 8:00:00 EST, Routine enoxaparin, 40 mg = 0.4 mL, Subcutaneous, Soln, every 24 hr, First Dose: 08/18/22 21:17:00 EST, NOW glucagon, 1 mg = 3 mL, IM, Powder-Inj, As Directed, PRN low blood sugar, First Dose: 08/18/22 22:41:00 EST, Routine Dextrose 50% intravenous solution, 12.5 g 25 mL, IV Push, Soln-IV, Once, PRN other (see comment), First Dose: 08/18/22 22:41:00 EST, Physician Stop, Routine HYDROmorphone, 0.4 mg = 0.4 mL, Slow IV Push, Soln, every 4 hr for 30 days, PRN pain, moderate, First Dose: 08/18/22 21:50:00 EST, Stop Date: 09/17/22 21:49:00 EDT, Physician Stop, Routine insulin lispro (HumaLog) correction- sensitive, Sensitive Scale, Subcutaneous, Soln, QID(ACHS), First Dose: 08/19/22 7:30:00 EST, Routine lidocaine 1% injectable solution, 5 mg 0.5 mL, Intradermal, Soln, As Directed, PRN other (see comment), First Dose: 08/18/22 21:17:00 EST, Routine LORazepam, 1 mg = 0.5 mL, IV Push, Soln, every 4 hr for 3 days, PRN anxiety, First Dose: 08/19/22 0:33:00 EST, Stop Date: 08/22/22 0:32:00 EST, Physician Stop, Routine losartan, 25 mg = 1 tab, Oral, Tab, Daily, First Dose: 08/19/22 9:00:00 EST, Routine metoprolol succinate, 50 mg = 1 tab, Oral, Tab-ER, Daily, First Dose: 08/19/22 9:00:00 EST, Routine ondansetron, 4 mg = 2 mL, IV Push, Soln, every 6 hr, PRN nausea/vomiting, First Dose: 08/18/22 21:17:00 EST, Routine pantoprazole, 40 mg = 1 EA, IV Push, Powder-Inj, Daily, First Dose: 08/18/22 6:00:00 EST, Routine Zoloft, 50 mg = 1 tab, Oral, Tab, Daily, First Dose: 08/19/22 9:00:00 EST, Routine Normal Saline Flush, 10 mL, IV Push, Soln, every 12 hr (mary), First Dose: 08/19/22 9:00:00 EST, Routine Sodium Chloride 0.9% 1,000 mL, Total Volume (mL): 1,000, 1,000 mL, Soln-IV, IV, 30 mL/hr, Start Date: 08/18/22 21:17:00 EST, 76 kg, Populate Charting Weight From Order, 1.83, m2 traZODone, 100 mg = 2 tab, Oral, Tab, every night at bedtime, First Dose: 08/19/22 21:00:00 EST, Routine Ambulate as Tolerated, 08/18/22 21:17:00 EST, PRN Basic Metabolic Panel, Blood, Routine, 08/18/22 21:17:00 EST, every morning, for 3 days, Lab Collect Blood Glucose Monitoring POC, 08/18/22 22:41:00 EST, every 6 hr, if NPO, per protocol, 08/18/22 23:00:00 EST Cardiac Monitoring, 08/18/22 21:17:00 EST, Telemetry CBC w/ Diff, Blood, Routine, 08/18/22 21:17:00 EST, every morning, for 3 days, Lab Collect Diet Order, 08/18/22 21:17:00 EST, NPO Intake and Output, 08/18/22 21:17:00 EST, every 8 hrs, Constant Indicator, 08/18/22 21:17:00 EST Magnesium Level, Blood, Routine, 08/18/22 21:17:00 EST, every morning, for 3 days, Lab Collect PT Evaluation and Treatment Acute., 08/18/22 21:17:00 EST, Once Resuscitation Status, 08/18/22 21:17:00 EST, Full Code Vital Signs, 08/18/22 21:17:00 EST, Constant order, every 4 hrs Weight, 08/18/22 21:17:00 EST, Daily Problem List/Past Medical History Ongoing Cardiac [...] (06/15/2014)???Brain stimulation (06/15/2012)???Surgery (06/2002)???Hysterectomy (1983) Medications Inpatient albuterol, 180 mcg, Inhale, every 4 hr, PRN atorvastatin, 5 mg= 0.5 tab, Oral, every evening Benadryl, 25 mg= 0.5 mL, IV Push, every 6 hr, PRN Dextrose 50% intravenous solution, 12.5 g= 25 mL, IV Push, Once, PRN enoxaparin, 40 mg= 0.4 mL, Subcutaneous, every 24 hr glucagon, 1 mg= 3 mL, IM, As Directed, PRN HYDROmorphone, 0.4 mg= 0.4 mL, Slow IV Push, every 4 hr, PRN insulin lispro (HumaLog) correction- sensitive, Sensitive Scale, Subcutaneous, QID(ACHS) Jardiance, 10 mg= 1 EA, Oral, every morning lidocaine 1% injectable solution, 5 mg= 0.5 mL, Intradermal, As Directed, PRN LORazepam, 1 mg= 0.5 mL, IV Push, every 4 hr, PRN losartan, 25 mg= 1 tab, Oral, Daily metoprolol succinate, 50 mg= 1 tab, Oral, Daily Normal Saline Flush, 10 mL, IV Push, every 12 hr (mary) ondansetron, 4 mg= 2 mL, IV Push, every 6 hr, PRN pantoprazole, 40 mg= 1 EA, IV Push, Daily Sodium Chloride 0.9% 1,000 mL, 1000 mL, IV Sodium Chloride 0.9% 1,000 mL, 1000 mL, IV Symbicort 160 mcg-4.5 mcg/inh inhalation aerosol, 2 inh, Inhale, BID RT traZODone, 100 mg= 2 tab, Oral, every night at bedtime Zoloft, 50 mg= 1 tab, Oral, Daily Home amLODIPine 10 mg oral tablet, 10 mg= 1 tab, Oral, Daily aspirin 81 mg oral capsule, 81 mg= 1 cap, Oral, Daily clotrimazole-betamethasone dipropionate 1%-0.05% topical cream, 1 erica, Topical, BID diphenhydrAMINE 25 mg oral capsule, 50 mg= 2 cap, Oral, every night at bedtime, PRN hydrOXYzine hydrochloride 25 mg oral tablet isosorbide mononitrate 30 mg oral tablet, extended release, 30 mg= 1 tab, Oral, every morning isosorbide mononitrate 60 mg oral tablet, extended release Jardiance 10 mg oral tablet, 10 mg= 1 tab, Oral, every morning losartan 25 mg oral tablet, 25 mg= 1 tab, Oral, Daily metFORMIN 1000 mg oral tablet, 1000 mg= 1 tab, Oral, BID metoprolol succinate 50 mg oral capsule, extended release, 50 mg= 1 cap, Oral, Daily omeprazole 10 mg oral delayed release capsule, 20 mg= 2 cap, Oral, Daily pravastatin 20 mg oral tablet, 20 mg= 1 tab, Oral, every night at bedtime ProAir HFA 90 mcg/inh inhalation aerosol, 2 puffs, Inhale, every 4 hr, PRN traZODone 100 mg oral tablet, See Instructions Wixela Inhub 250 mcg-50 mcg inhalation powder, 1 Inhalation, Inhale, BID Zoloft 50 mg oral tablet, 50 mg= 1 tab, Oral, Daily Allergies penicillin??(Anaphylaxis) contrast media (iodine-based)??(Rash) Demerol??(Hives) Stadol??(Rash) Toradol??(Hives) Tylenol??(Petechiae) Valium codeine??(Hives) morphine??(Vomiting) Social History Alcohol Never Electronic Cigarette/Vaping Electronic Cigarette Use: Never. Home/Environment Lives with Spouse. Nutrition/Health Caffeine intake amount: Coffee/Cola: one daily. Sexual Sexually active: Yes. Other contraceptive use: None. Tobacco Former tobacco user Tobacco Use:. quit [...] unspecified form 03/26/2021 Recorded Electronically Signed on 08/19/22 06:25 AM Carlene Maddie ALEJO-Reina * Grayson Garza MD: PERFORM Event Display: History and Physical Authored Date: [id number] I saw and evaluated the patient. ??Patient's case has been discussed and I have reviewed nurse practitioner's note and agree with findings and plan as documented in the nurse practitioner's note.?? Appears that most likely abdominal pain is secondary to??epiploic appendagitis. ??We will start ceftri axone and Flagyl.?? Patient is allergic to Gastrografin. ??Surgical consultation??will be placed and appreciate their recommendations. Electronically Signed on 08/19/22 11:44 AM Grayson Garza MD Discharge summary * Grayson Garza MD: PERFORM Event Display: Discharge Summary Authored Date: [id number] KAE BROWN :1950 Age:71 years Sex:Female Visit Date:08/18/2022 Primary Care Physician: Nikolas Matos DO Hospital Course The patient is a 71-year-old female with a past medical history of hypertension, diabetes, multiplebowel surgeries including resection and colostomy that was reversed approximately 1 year prior who presented to the emergency department on 08/19/2022 with a chief complaint of abdominal pain. ??Because of abdominal pain was initially thought to be partial bowel obstruction and CT of the abdomen was consistent with these findings. ??Initially was made NPO. ??She refused NG tube placement. ??RefusedGastrografin although possibly allergic to this in the past. ??CT scan revealed mild epiploic appendagitis started on ceftriaxone and Flagyl for this. ??She improved in regards to her abdominal pain and as well as nausea and vomiting and was advanced to full liquid diet and then demanded that she le ave shortly after stating and she can advance her diet at home although her pain was only mildly improved for short time period and she only received 1 day of IV antibiotics. ??She refused oral antibiotics that I could have discharged her on and she left AGAINST MEDICAL ADVICE on 08/20/2022 at 1115. ??During her hospitalization her home medications were continued for chronic medical conditions. ??She was recommended to follow-up with her PCP as soon as possible. ??She was also recommended to return or go to her nearest emergency department or if her signs or symptoms were to return. ??4 mm pulmonary nodule in the left lower lobe was also seen which will require follow-up on outpatient basis as well as for mild hepatomegaly with moderate generalized fatty infiltration of the liver seen. Physical Exam Vitals & Measurements T:??36.2?C ??(Temporal Artery)?? TMIN:??36.2?C ??(Temporal Artery)?? TMAX:??36.7?C ??(Temporal Artery)?? HR:??80??(Monitored)?? RR:??16?? BP:??148/74?? SpO2:??96%?? WT:??76.8??kg?? Pain Score:??2?? O2 Therapy:??Room air?? General:??Alert and oriented, well nourished,?No??acute distress Eye:??PERRL, EOMI,?Normal??conjunctiva HENT:??Normocephalic, clear tympanic membranes,?Normal?hearing, moist oral mucosa,?No??scleral icterus,?No??sinus tenderness Neck:??Supple, non-tender,?No??carotid bruits,?No??JVD,?No??lymphadenopathy Lungs:??Clear to auscultation and percussion,?Non-labored?respiration Heart:?Normal?rate,?Regular??rhythm,?No??murmur,?No??gallop,?N o??edema Abdomen:??Soft, non-tender, non-distended,?Normal?bowel sounds,?No??masses Musculoskeletal:?Normal?range of motion and strength,?No??tenderness,?No??swelling Skin:??Skin is warm, dry and pink,?No??rashes,?No??lesions Neurologic:??Awake, alert and oriented X3, CN II-XII??grossly intact Psychiatric:??Cooperative, appropriate mood and affect Medications Inpatient !-Flagyl, 500 mg= 100 mL, IV Piggyback, every 8 hr albuterol, 180 mcg, Inhale, every 4 hr, PRN atorvastatin, 5 mg= 0.5 tab, Oral, every evening Benadryl, 25 mg= 0.5 mL, IV Push, every 6 hr, PRN cefTRIAXone, 2 g= 50 mL, IV Piggyback, every 24 hr Dextrose 50% intravenous solution, 12.5 g= 25 mL, IV Push, Once, PRN docusate, 100 mg= 1 cap, Oral, Daily enoxaparin, 40 mg= 0.4 mL, Subcutaneous, every 24 hr glucagon, 1 mg= 3 mL, IM, As Directed, PRN HYDROmorphone, 0.4 mg= 0.4 mL, Slow IV Push, every 4 hr, PRN insulin lispro (HumaLog) correction- sensitive, Sensitive Scale, Subcutaneous, QID(ACHS) Jardiance, 10 mg= 1 EA, Oral, every morning lidocaine 1% injectable solution, 5 mg= 0.5 mL, Intradermal, As Directed, PRN LORazepam, 1 mg= 0.5 mL, IV Push, every 4 hr, PRN losartan, 25 mg= 1 tab, Oral, Daily metoprolol succinate, 50 mg= 1 tab, Oral, Daily MiraLax oral powder for reconstitution, 17 g= 1 EA, Oral, Daily Normal Saline Flush, 10 mL, IV Push, every 12 hr (mary) ondansetron, 4 mg= 2 mL, IV Push, every 6 hr, PRN pantoprazole, 40 mg= 1 EA, IV Push, Daily Reglan, 10 mg= 1 tab, Oral, Once Sodium Chloride 0.9% 1,000 mL, 1000 mL, IV Sodium Chloride 0.9% 1,000 mL, 1000 mL, IV Sodium Chloride 0.9% 1,000 mL, 1000 mL, IV Symbicort 160 mcg-4.5 mcg/inh inhalation aerosol, 2 inh, Inhale, BID RT traZODone, 100 mg= 2 tab, Oral, every night at bedtime Zoloft, 50 mg= 1 tab, Oral, Daily Home !-Zofran ODT 4 mg oral tablet, disintegrating, 4 mg= 1 tab, Oral, every 8 hr, PRN aspirin 81 mg oral capsule, 81 mg= [...] 60 mg= 1 tab, Oral, every morning losartan 100 mg oral tablet, 100 mg= 1 tab, Oral, Daily metoprolol succinate 50 mg oral capsule, extended release, 50 mg= 1 cap, Oral, BID omeprazole 20 mg oral delayed release capsule, 20 mg= 1 cap, Oral, BID pravastatin 20 mg oral tablet, 20 mg= 1 tab, Oral, every night at bedtime traZODone 100 mg oral tablet, See Instructions Trulicity Pen 0.75 mg/0.5 mL subcutaneous solution, 0.75 mg, Subcutaneous, every week Procedure/Surgical History ???Laparotomy (10/14/2020)???Knee arthroplasty (09/29/2018)???Arthroscopy of knee (02/08/2018)???Colostomy (06/15/2017)???Knee replacement (06/15/2014)???Brain stimulation (06/15/2012)???Surgery (06/2002)???Hysterectomy (1983) Social History Alcohol Never Electronic Cigarette/Vaping Electronic Cigarette Use: Never. Home/Environment Lives with Spouse. Nutrition/Health Caffeine intake amount: Coffee/Cola: one daily. Sexual Sexually active: Yes. Other contraceptive use: None. Tobacco Former tobacco user Tobacco Use:. quit 2012 per day. Discharge Plan Discharge planning 20 minutes??and??discussion was had with patient about risks and benefits??of leaving AGAINST MEDICAL ADVICE.. 2.??Epiploic appendagitis??K63.89 The patient is a 71-year-old female with a past medical history of hypertension, diabetes, multiplebowel surgeries including resection and colostomy that was reversed approximately 1 year prior who presented to the emergency department on 08/19/2022 with a chief complaint of abdominal pain. ??Because of abdominal pain was initially thought to be partial bowel obstruction and CT of the abdomen was consistent with these findings. ??Initially was made NPO. ??She refused NG tube placement. ??RefusedGastrografin although possibly allergic to this in the past. ??CT scan revealed mild epiploic appendagitis started on ceftriaxone and Flagyl for this. ??She improved in regards to her abdominal pain and as well as nausea and vomiting and was advanced to full liquid diet and then demanded that she le ave shortly after stating and she can advance her diet at home although her pain was only mildly improved for short time period and she only received 1 day of IV antibiotics. ??She refused oral antibiotics that I could have discharged her on and she left AGAINST MEDICAL ADVICE on 08/20/2022 at 1115. ??During her hospitalization her home medications were continued for chronic medical conditions. ??She was recommended to follow-up with her PCP as soon as possible. ??She was also recommended to return or go to her nearest emergency department or if her signs or symptoms were to return. ??4 mm pulmonary nodule in the left lower lobe was also seen which will require follow-up on outpatient basis as well as for mild hepatomegaly with moderate generalized fatty infiltration of the liver seen. 3.??Partial small bowel obstruction??K56.600 4.??Chronic obstructive pulmonary disease??J44.9 5.??Constipation??K59.00 6.??Diverticulitis??K57.92 7.??Hypertension??I10 8.??Type 2 diabetes mellitus??E11.9 9.??Depression??F32.A Other chronic pain??G89.29 Orders: docusate, 100 mg = 1 cap, Oral, Cap, Daily for 30 days, First Dose: 08/20/22 9:58:00 EST, Stop Date: 09/19/22 8:59:00 EDT, Physician Stop, Routine Reglan, 10 mg = 1 tab, Oral, Tab, Once, First Dose: 08/20/22 10:00:00 EST, Stop Date: 08/20/22 10:00:00 EST, Physician Stop, Routine MiraLax oral powder for reconstitution, 17 g 1 EA, Oral, Powder-Recon, Daily, First Dose: 08/20/22 9:58:00 EST, Routine Sodium Chloride 0.9% 1,000 mL, Total Volume (mL): 1,000, 1,000 mL, Soln-IV, IV, 75 mL/hr, Start Date: 08/19/22 11:46:00 EST, 76 kg, Populate Charting Weight From Order, 1.83, m2 Diet Order, 08/20/22 8:16:00 EST, Full Liquid PSO Admit to Inpatient, Semi-Private, Inpatient, Grayson Garza MD, backlog admission order to 08/18/2022 at 1535 as she met inpatient criteria, 08/19/22 11:37:00 EST, 08/19/22 11:40:00 EST, 08/19/22 11:37:00 EST, 2 midnights or more PT Additional Treatment Acute., 08/20/22 9:00:00 EST, PT tx, Thu/////Sa All Diagnoses This Visit Epiploic appendagitis Partial small bowel obstruction Chronic obstructive pulmonary disease Constipation Diverticulitis Hypertension Type 2 diabetes mellitus Depression Other chronic pain Medication Reconciliation Changed hydrOXYzine (hydrOXYzine hydrochloride 25 mg oral tablet)1 [...] by mouth) 2 times a day. ?? Unchanged aspirin (aspirin 81 mg oral capsule)1 Capsules Oral (given by mouth) every day. ?? clotrimazole-betamethasone dipropionate (clotrimazole-betamethasone dipropionate 1%-0.05% topical cream)1 Application Topical (on the skin) 2 times a day. Refills: 0. ?? diphenhydrAMINE (diphenhydrAMINE 25 mg oral capsule)2 Capsules Oral (given by mouth) every night atbedtime as needed as needed for insomnia. ?? dulaglutide (Trulicity Pen 0.75 mg/0.5 mL subcutaneous solution)0.75 Milligrams Subcutaneous (underthe skin) every week. rotate injection sites. ?? exenatide (Bydureon Pen 2 mg subcutaneous injection, extended release)2 Milligrams Subcutaneous (under the skin) every week. ?? ondansetron (!-Zofran ODT 4 mg oral tablet, disintegrating)1 tab Oral (given by mouth) every 8 hours as needed as needed for nausea/vomiting. ?? pravastatin (pravastatin 20 mg oral tablet)1 tab Oral (given by mouth) every night at bedtime. ?? traZODone (traZODone 100 mg oral tablet)1 tab Oral every night at bedtime. ?? Discontinued albuterol (ProAir HFA 90 mcg/inh inhalation aerosol)2 Puffs Inhale (breathe in) every 4 hours as needed as needed for wheezing. ?? amLODIPine (amLODIPine 10 mg oral tablet)1 tab Oral (given by mouth) every day. ?? empagliflozin (Jardiance 10 mg oral tablet)1 tab Oral (given by mouth) every morning. ?? fluticasone-salmeterol (Wixela Inhub 250 mcg-50 mcg inhalation powder)1 Inhalation Inhale (breathe in) 2 times a day. ?? metFORMIN (metFORMIN 1000 mg oral tablet)1 tab Oral (given by mouth) 2 times a day. ?? sertraline (Zoloft 50 mg oral tablet)1 tab Oral (given by mouth) every day. Electronically Signed on 08/20/22 11:26 AM Grayson Garza MD Patient Care team information Care Team Personnel Name: Nikolas Matos DO Position: No Access Member Role: Primary Care Physician Address: Address: [address] [place] [id number] Name: Bernardo Spears RN Position: Nurse Member Role: ED Nurse Name: Radhames Calles MD Position: Physician Member Role: ED Physician Address: Address: [address] [place] [address] [address] [place] [address] [place] Care Team Related Persons Name: ÁNGEL BROWN
--- OUTSIDE RECORDS SUMMARY | 2024-02-29 19:14 | XMS_ITS | Clinical Summary ---
[facility] Address [facility] [place] [address] Care Team Providers Care Locomotive Observer Name Role Phone Nikolas Matos Primary Care Provider Allergies Active Allergy Reactions Criticality Noted Date Comments Codeine Hives 05/02/2022 Meperidine Hives 05/02/2022 Penicillins Anaphylaxis High 05/02/2022 Anything in this class Medications Medication Sig Dispensed Refills Start Date End Date Status fluticasone propion-salmeteroL (ADVAIR) 100-50 mcg/dose Disk with Device Inhale 1 puff into the lungs every 12 hours. Active ALBUTEROL INHL Inhale 2 puffs into the lungs as needed. Active amLODIPine (Norvasc) 10 mg Tablet Take 10 mg by mouth every morning. 02/05/2022 Active hydrOXYzine (Atarax) 25 mg Tablet Take 25 mg by mouth 3 times daily as needed. 03/19/2022 Active losartan (Cozaar) 25 mg Tablet Take 25 mg by mouth daily. FOR 90 DAYS 02/19/2022 Active metoprolol succinate XL (Toprol-XL) 50 mg Tablet Sustained Release 24 hr Take 50 mg by mouth 2 times daily. 03/27/2022 Active traZODone (Desyrel) 100 mg Tablet Take 100 mg by mouth nightly. 04/07/2022 Active pravastatin (Pravachol) 20 mg Tablet Take 20 mg by mouth nightly. 03/27/2022 Active omeprazole (PriLOSEC) 20 mg Capsule, Delayed Release(E.C.) Take 20 mg by mouth 2 times daily. 03/19/2022 Active diphenhydrAMINE HCL 25 mg Tablet, Chewable Take 25 mg by mouth as needed. Active isosorbide mononitrate (IMDUR) 60 mg Tablet Sustained Release 24 hr Take 60 mg by mouth daily. Active nitroGLYcerin (Nitrostat) 0.4 mg Tablet, Sublingual Place 0.4 mg under the tongue every 5 minutes as needed for Chest pain. Active aspirin EC 81 mg Tablet, Delayed Release (E.C.) Take 81 mg by mouth daily. Active docusate sodium (Stool Softener) 250 mg Capsule Take 250 mg by mouth daily. Active metFORMIN (Glucophage) 1,000 mg Tablet Take 1,000 mg by mouth 2 times daily (with meals). Active primidone (Mysoline) 50 mg Tablet Take 50mg nightly for one week and if needed increase to 100mg nightly 60 tablet 11 05/02/2022 Active Additional Information Patient not taking.Reported on 04/01/2023 Jardiance 10 mg tablet Take 10 mg by mouth every morning. Active topiramate (Topamax) 25 mg tablet Take 1 tablet by mouth 2 times daily. 60 tablet 11 04/01/2023 Active Active Problems Problem Noted Date Diagnosed Date Essential tremor 05/02/2022 Family History Medical History Relation Comments Tremor Father Relation Status Comments Father Social History Tobacco Use Types Packs/Day Years Used Date Smoking Tobacco: Former Cigarettes Smokeless Tobacco: Never Tobacco Cessation:Counseling Given: Not Answered Alcohol Use Standard Drinks/Week Comments Not Currently 0 (1 standard drink = 0.6 oz pur e alcohol) Overall Financial Resource Strain (CARDIA) Answe r Date Recorded How hard is it for you to pa y for the very basics like food, housing, medical care, and heating? Not hard at all 05/02/2022 Exercise Vital Sign Answer Date Recorde d On average, how many days pe r week do you engage in moderate to strenuous exercise (like a brisk walk)? Patient declined Minutes of Exercise per Session Not on file 05/02/2022 Hunger Vital Sign Answer Date Recorded Within the past 12 months, y ou worried that your food would run out before you got the money to buy more. Never true 05/02/20 22 Within the past 12 months, t he food you bought just didn't last and you didn't have money to get more. Never true 05/02/2022 PRAPARE - Transportation Answer Date Re corded In the past 12 months, has l ack of transportation kept you from medical appointments or from getting medications? No 04/15 In the past 12 months, has l ack of transportation kept you from meetings, work, or from getting things needed for daily living? No 05/02/2022 Housing Stability Vital Sign Answer [place] e Recorded In the last 12 months, was t here a time when you were not able to pay the mortgage or rent on time? No 05/02/2022 In the last 12 months, how many places have you lived? 1 05/02/2022 In the last 12 months, was t here a time when you did not have a steady place to sleep or slept in a mcfp (including now)? No 05/02/2022 Sex and Gender Information Value Date Recorded Sex Assigned at Not on file Gender Identity Not on file Sexual Orientation Not on file Last Filed Vital Signs Vital Sign Reading Time Taken Comments Blood Pressure 102/37 04/01/2023 12:20 PM EDT Pulse 97 04/01/2023 12:20 PM EDT Temperature - - Respiratory Rate - - Oxygen Saturation - - Inhaled Oxygen Concentration - - Weight 74.8 kg (165 lb) 04/01/2023 12:20 PM EDT Height 157.5 cm (5' 2) 04/01/2023 12:20 PM EDT Body Mass Index 30.18 04/01/2023 12:20 PM EDT Plan of Treatment Health Maintenance Due Date Last Done Comments CT Colonography 1951 Colonoscopy 1951 Colorectal Cancer Screening 1950 FIT DNA 1951 FIT 1951 Sigmoidoscopy (10 year) with FIT yearly 1951 Sigmoidoscopy 1950 Hepatitis C Screening 12/19/1969 Tdap adult 12/19/1970 Tetanus vaccine 12/19/1970 Breast Cancer Share Decision Needed 1991 Breast Cancer screening 1991 Zoster vaccine (1 of 2) 12/19/2001 Advance Directive 12/19/2006 Bone Density Scan 12/19/2016 Pneumoccocal Vaccine: 65+ (1 of 1 - PCV) 12/19/2016 Covid-19 Vaccine (1 - 2022-24 season) 2024 Influenza (Flu) vaccine (1 o f 1 - Influenza standard series) 02/14/2024 Care Teams Locomotive Observer Relationship Specialty Start Date End Date Nikolas Matos PA [address] [place] [address] PCP - General Internal Medicine 12/30/21
--- OUTSIDE RECORDS SUMMARY | 2024-02-29 19:14 | XMS_ITS | Encounter Summary ---
Author Organization [facility] Address [facility] [place] [address] Care Team Providers Care Chainer Name Role Phone Nikolas Matos Primary Care Provider [phone] Encounter Details Date Type Department Care Team (Latest Contact Info) Description 05/02/2022 Travel Social History Tobacco Use Types Packs/Day Years Used Date Smoking Tobacco: Former Cigarettes Smokeless Tobacco: Never Alcohol Use Standard Drinks/Week Comments Not Currently [...] place to sleep or slept in a half-way (including now)? No 05/02/2022 Sex and Gender Information Value Date Recorded Sex Assigned at Not on file Gender Identity Not on file Sexual Orientation Not on file documented as of this encounter Plan of Treatment Not on file documented as of this encounter Visit Diagnoses Not on filedocumented in this encounter Care Teams Chainer Relationship Specialty Start Date End Date Nikolas Matos PA [address] [place] [address] PCP - General Internal Medicine 12/30/21 documented as of this encounter
--- OUTSIDE RECORDS SUMMARY | 2024-02-29 19:14 | XMS_ITS | Encounter Summary ---
[place] [address] Care Team Providers Care Gun Barrel Finisher Name Role Phone Nikolas Matos Primary Care Provider Reason for Referral * Consultation (Routine) - Closed Specialty Diagnoses / Procedures Referred By Binh jamison Referred To Contact Gastroenterology Diagnoses Small bowel obstruction small bowel obstruction Nikolas Matos PA [address] [place] [address] [facility] [address] [place] [phone] Referral ID Status Reason Start Date Expiration Date V isits Requested Visits Authorized [id number] Closed Consult, Test & Treat PCP Updated and/or Approved 01/12/2023 01/13/2024 12 12 Encounter Details Date Type Department Care Team (Latest Contact Info) Description 01/16/2023 Transcribe Orders eDH Incoming Referrals [phone] Nikolas Matos PA [address] [place] [address] Small bowel obstruction Social History Tobacco Use Types Packs/Day Years [...] place to sleep or slept in a fci (including now)? No 05/02/2022 Sex and Gender Information Value Date Recorded Sex Assigned at Not on file Gender Identity Not on file Sexual Orientation Not on file documented as of this encounter Plan of Treatment Scheduled Referrals Name Type Priority Associated Diagnoses Order Schedule Referral to Gastroenterology Outpatient Referral Routine Small bowel obstruction Ordered: 01/16/2023 documented as of this encounter Visit Diagnoses Diagnosis Small bowel obstruction Unspecified intestinal obstruction documented in this encounter Care Teams Gun Barrel Finisher Relationship Specialty Start Date End Date Nikolas Matos PA [address] [place] [address] PCP - General Internal Medicine 12/30/21 documented as of this encounter
--- OUTSIDE RECORDS SUMMARY | 2024-02-29 19:14 | XMS_ITS | Encounter Summary ---
Author Organization [facility] Address [facility] [place] [address] Care Team Providers Care Wildlife Removal Specialist Name Role Phone Nikolas Matos Primary Care Provider [phone] Encounter Details Date Type Department Care Team (Latest Contact Info) Description 04/01/2023 Travel Social History Tobacco Use Types Packs/Day [...] place to sleep or slept in a group home (including now)? No 05/02/2022 Sex and Gender Information Value Date Recorded Sex Assigned at Not on file Gender Identity Not on file Sexual Orientation Not on file documented as of this encounter Plan of Treatment Not on file documented as of this encounter Visit Diagnoses Not on filedocumented in this encounter Care Teams Wildlife Removal Specialist Relationship Specialty Start Date End Date Nikolas Matos PA [address] [place] [address] PCP - General Internal Medicine 12/30/21 documented as of this encounter
--- OUTSIDE RECORDS SUMMARY | 2024-02-29 19:14 | XMS_ITS | Encounter Summary ---
[place] [address] Care Team Providers Care Huc Ob Name Role Phone Nikolas Matos Primary Care Provider Reason for Referral * Consultation (Routine) - Closed Specialty Diagnoses / Procedures Referred By Binh t Referred To Contact Neurology Diagnoses Parkinson's disease Nikolas Matos PA [address] [place] [address] [facility] [address] [place] [phone] Referral ID Status Reason Start Date Expiration Date V isits Requested Visits Authorized [id number] Closed Consult, Test & Treat PCP Updated and/or Approved 12/30/2021 12/30/2022 6 6 Encounter Details Date Type Department Care Team (Latest Contact Info) Description 12/30/2021 Transcribe Orders eDH Incoming Referrals [phone] Nikolas Matos PA [address] [place] [address] Parkinson's disease Social History Tobacco Use Types Packs/Day Years Used Date Smoking Tobacco: Never Assessed Sex and Gender Information Value Date Recorded Sex Assigned at Not on file Gender Identity Not on file Sexual Orientation Not on file documented as of this encounter Plan of Treatment Scheduled Referrals Name Type Priority Associated Diagnoses Orde r Schedule Referral to Neurology Outpatient Referral Routine Parkinson's disease Ordered: 12/30/2021 documented as of this encounter Visit Diagnoses Diagnosis Parkinson's disease Paralysis agitans documented in this encounter Care Teams Huc Ob Relationship Specialty Start Date End Date Nikolas Matos PA [address] [place] [address] PCP - General Internal Medicine 12/30/21 documented as of this encounter
--- OUTSIDE RECORDS SUMMARY | 2024-02-29 19:14 | XMS_ITS | Encounter Summary ---
Author Organization [facility] [place] [address] Care Team Providers Care Environmental Web Crawler Name Role Phone Carlo Nikolas HARRIS Primary Care Provider [phone] Encounter Details Date Type Department Care Team (Late st Contact Info) Description 04/01/2023 12:30 PM EDT Office Visit Neurology at [address] [phone] [facility] [place] [address] Essential tremor Social History Tobacco Use Types Packs/Day Years [...] No 05/02/2022 Housing Stability Vital Sign Answer Abiel e Recorded In the last 12 months, [...] place to sleep or slept in a retirement (including now)? No 05/02/2022 Sex and Gender Information Value Date Recorded Sex Assigned at Not on file Gender Identity Not on file Sexual Orientation Not on file documented as of this encounter Last Filed Vital Signs Vital Sign Reading [...] Mass Index 30.18 04/01/2023 12:20 PM EDT documented in this encounter Progress Notes * Katie Amin MD - 04/01/2023 12:30 PM EDT [facility] Movement Disorders Follow Up Patient Evaluation Date of service 04/01/2023 Referring provider Nikolas Matos PA [address] [place] [address] Cc: establish care for tremor History of present illness Kae Forrest is a 72 y.o. right handed woman who presents to the movement disorders clinic forevaluation of tremor. She has PMH of DM and tremor. She recently moved from [place] to [facility] where she has lived previously. She had a hospital visit due to bowel issues. The tremors have been under decent control Some days the left hand is worse. Shedoes not adjust the stimulator. We tried to add back the primidone but she had stomach issues so it is back off. History of tremor related symptoms Initial symptom: about 2011 tremors and diagnosis of PD Progression of other motor symptoms: worsening coordination and tremors Gait: some changes, she may get tangled in her own feet Cognition: minor changes, driving is ok Mood: she is seeing a counselor for anxiety, she is on hydroxyzine Current PD meds: none Dyskinesias: no Wearing off: no Past tried PD meds: primidone in the past Past imaging (MR, CT or Abiel): yes MRI Past surgical treatments for PD: DBS at [facility] in about 2015, and IPG replaced in 2020 Family history of PD: her father probably had PD, he had a lot of tremors Past exposures: picked [employer] as a kid 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 FOR 90 DAYS, Disp: , Rfl: metoprolol succinate XL (Toprol-XL) 50 mg Tablet Sustained Release 24 hr, Take 50 mg by mouth 2 times daily., Disp: , Rfl: traZODone (Desyrel) 100 mg Tablet, Take 100 mg by mouth nightly., Disp: , Rfl: pravastatin (Pravachol) 20 mg Tablet, Take 20 mg by mouth nightly., Disp: , Rfl: omeprazole (PriLOSEC) 20 mg Capsule, Delayed Release(E.C.), Take 20 mg by mouth 2 times daily., Disp: , Rfl: diphenhydrAMINE HCL 25 mg Tablet, Chewable, Take 25 mg by mouth as needed., Disp: , Rfl: isosorbide mononitrate (IMDUR) 60 mg Tablet Sustained Release 24 hr, Take 60 mg by mouth daily., Disp: , Rfl: aspirin EC 81 mg Tablet, Delayed Release (E.C.), Take 81 mg by mouth daily., Disp: , Rfl: docusate sodium (Stool Softener) 250 mg Capsule, Take 250 mg by mouth daily., Disp: , Rfl: metFORMIN (Glucophage) 1,000 mg Tablet, Take 1,000 mg by mouth 2 times daily (with meals)., Disp: ,Rfl: topiramate (Topamax) 25 mg tablet, Take 1 tablet by mouth 2 times daily., Disp: 60 tablet, Rfl: 11 nitroGLYcerin (Nitrostat) 0.4 mg Tablet, Sublingual, Place 0.4 mg under the tongue every 5 minutes as needed for Chest pain., Disp: , Rfl: primidone (Mysoline) 50 mg Tablet, Take 50mg nightly for one week and if needed increase to 100mg nightly (Patient not taking: Reported on 04/01/2023), Disp: 60 tablet, Rfl: 11 Past Medical History: Diagnosis Date Diabetes mellitus Essential tremor No past surgical history on file. Social History: Lives in [facility], not currently working, was a [employer] bus driver supervisor in [place] but does not know the roads as well here Family History Problem Relation Age of Onset Tremor Father Review of Systems - All others negative except as per HPI Physical Exam Patient Vitals for the past 24 hrs: Pulse BP 04/01/23 1220 97 (!) 102/37 General: the patient appears stated age, not in any acute distress, well groomed, Body mass index is 30.18 kg/m??. HEENT: normal cephalic atraumatic, eye conjunctiva moist with no abnormal discharge, no abnormal nasal discharge Voice/language: no vocal tremor or dysarthria. Normal fluency and comprehension Mental status: oriented to place, self, date and reason for visit Cranial Nerves: III, IV, : EOMI, normal saccades and pursuit VIII: hearing normal in conversation Strength: Full and symmetric throughout Coordination: Finger to nose: bilateral intention and action tremor Gait: Patient stood up without pushing off, normal base and stance, normal arm swing, steady turns Additional movement disorder specific findings: Bilateral postural and action tremor in the upper extremities Contacts Voltage Pulse width Frequency Notes Left 2-/C+ 1.3 70 180 Limited by speech trial 2-/1+ Up to 2mA 70 180 Tingling at higher voltages, good tremor control Contacts Voltage Pulse idth Frequency Notes Right initial 10-/C+ 2.6 90 180 Right final 3 years 1 month remaining on battery Review of available labs and imaging: Assessment: ICD-10-CM 1. Essential tremor G25.0 She has a bilateral upper extremity action tremor most consistent with ET. History of tremor in herfather. She was previously on primidone with some success but has done best since getting a bilateral medtronic VIM DBS. Programming is limited by tingling and voice changes even at bipolar settings. She has noted worsening tremor on the left and would like to try another med for this. We will try topiramate. Plan: - no stim changes today - does not tolerate primidone - add topiramate 25mg BID (counseled her diet pepsi may taste different on this) F/u in about 11 months Katie Amin MD [facility] Neurology-Movement Disorders documented in this encounter Plan of Treatment Not on file documented as of this encounter Visit Diagnoses Diagnosis Essential tremor Essential and other specified forms of tremor documented in this encounter Care Teams Environmental Web Crawler Relationship Specialty Start Date End Date Nikolas Matos PA [address] [place] [address] PCP - General Internal Medicine 12/30/21 documented as of this encounter
--- OUTSIDE RECORDS SUMMARY | 2024-02-29 19:14 | XMS_ITS | Encounter Summary ---
Author Organization [facility] [address] Care Team Providers Care Water Chaser Name Role Phone Nikolas Matos Primary Care Provider [phone] Reason for Visit * Consultation (Routine) - Closed Specialty Diagnoses / Procedures Referred By Binh jamison Referred To Contact Neurology Diagnoses Parkinson's disease Nikolas Matos PA [address] [place] [id number] [facility] [address] [place] [phone] Referral ID Status Reason Start Date Expiration Date V isits Requested Visits Authorized [id number] Closed Consult, Test & Treat PCP Updated and/or Approved 12/30/2021 12/30/2022 6 6 Encounter Details Date Type Department Care Team (Late st Contact Info) Description 05/02/2022 10:00 AM EST [place] [phone] Katie Amin MD [facility] [address] NEUROLOGY [place] [address] Essential tremor Social History Tobacco Use Types [...] place to sleep or slept in a longterm (including now)? No 05/02/2022 Sex and Gender Information Value Date Recorded Sex Assigned at Not on file Gender Identity Not on file Sexual Orientation Not on file documented as of this encounter Last Filed Vital Signs Vital Sign Reading Time Taken Comments Blood Pressure 121/60 05/02/2022 9:39 AM EST Pulse 102 05/02/2022 9:39 AM EST Temperature - - Respiratory Rate - - Oxygen Saturation - - Inhaled Oxygen Concentration - - Weight 78.4 kg (172 lb 12.8 oz) 05/02/2022 9:39 AM EST Height 152.4 cm (5') 05/02/2022 9:39 AM EST repo rted Body Mass Index 33.75 05/02/2022 9:39 AM EST documented in this encounter Progress Notes * Katie Amin MD - 05/02/2022 10:00 AM EST [facility] Movement Disorders New Patient Evaluation Date of service 05/02/2022 Referring provider Nikolas Matos PA [address] [place] [address] Cc: establish care for tremor History of present illness Kae Forrest is a 71 y.o. right handed woman who presents to the movement disorders clinic forevaluation of tremor. She has PMH of DM and tremor. She recently moved from [place] to [facility] where she has lived previously. 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 fluticasone propion-salmeteroL (ADVAIR) 100-50 mcg/dose Disk with Device, Inhale 1 puff into the lungs every 12 hours., Disp: , Rfl: ??? ALBUTEROL INHL, Inhale 2 puffs into the lungs as needed., Disp: , Rfl: ??? amLODIPine (Norvasc) 10 mg Tablet, Take 10 mg by mouth every morning., Disp: , Rfl: ??? hydrOXYzine (Atarax) 25 mg Tablet, Take 25 mg by mouth 3 times daily as needed., Disp: , Rfl: ??? losartan (Cozaar) 25 mg Tablet, Take 25 mg by mouth daily. FOR 90 DAYS, Disp: , Rfl: ??? metoprolol succinate XL (Toprol-XL) 50 mg Tablet Sustained Release 24 hr, Take 50 mg by mouth 2times daily., Disp: , Rfl: ??? traZODone (Desyrel) 100 mg Tablet, Take 100 mg by mouth nightly., Disp: , Rfl: ??? pravastatin (Pravachol) 20 mg Tablet, Take 20 mg by mouth nightly., Disp: , Rfl: ??? omeprazole (PriLOSEC) 20 mg Capsule, Delayed Release(E.C.), Take 20 mg by mouth 2 times daily.,Disp: , Rfl: ??? diphenhydrAMINE HCL 25 mg Tablet, Chewable, Take 25 mg by mouth as needed., Disp: , Rfl: ??? isosorbide mononitrate (IMDUR) 60 mg Tablet Sustained Release 24 hr, Take 60 mg by mouth daily., Disp: , Rfl: ??? nitroGLYcerin (Nitrostat) 0.4 mg Tablet, Sublingual, Place 0.4 mg under the tongue every 5 minutes as needed for Chest pain., Disp: , Rfl: ??? aspirin EC 81 mg Tablet, Delayed Release (E.C.), Take 81 mg by mouth daily., Disp: , Rfl: ??? docusate sodium (Stool Softener) 250 mg Capsule, Take 250 mg by mouth daily., Disp: , Rfl: ??? metFORMIN (Glucophage) 1,000 mg Tablet, Take 1,000 mg by mouth 2 times daily (with meals)., Disp: , Rfl: ??? primidone (Mysoline) 50 mg Tablet, Take 50mg nightly for one week and if needed increase to 100mg nightly, Disp: 60 tablet, Rfl: 11 Past Medical History: Diagnosis Date ??? Diabetes mellitus ??? Essential tremor History reviewed. No pertinent surgical history. Social History: Lives in [place], not currently working, was a [employer] concrete pile driver operator in [place] but does not know the roads as well here Family History Problem Relation Age of Onset ??? Tremor Father Review of Systems - All others negative except as per HPI Physical Exam Patient Vitals for the past 24 hrs: Pulse BP 05/02/22 0939 (!) 102 121/60 General: the patient appears stated age, not in any acute distress, well groomed, Body mass index is 33.75 kg/m??. HEENT: normal cephalic atraumatic, eye conjunctiva [...] initial 10-/C+ 2.6 90 180 Right final 4 years remaining on battery Review of available labs [...] voice changes even at bipolar settings. She had been off of the primidone since the surgery but tremor has been creeping up and no we are going to add back some primidone. Plan: - no stim changes today - add back primidone 50mg nightly for one week and then if needed increase to 100mg nightly F/u in about 11 months Katie Amin MD [facility] Neurology-Movement Disorders documented in this encounter Plan of Treatment Not on file documented as of this encounter Visit Diagnoses Diagnosis Essential tremor Essential and other specified forms of tremor documented in this encounter Care Teams Water Chaser Relationship Specialty Start Date End Date Nikolas Matos PA [address] [place] [address] PCP - General Internal Medicine 12/30/21 documented as of this encounter
--- NOTE | 2024-02-29 19:45 | RT.EKG_ITS ---
APPROVED REPORT Exam: Resting ECG Reason for Exam: weakness Patient Location: E HR:90 bpm ECG Measurements Heart Rate 90 AXIS NC 157 P 60 QRSd 78 QRS 38 QT 363 T 28 QTc 445 Conclusion Sinus rhythm 90 normal axis no stemi
[2024-02-29] MEDS: Normal Saline 1,000 ML 1000 ML IV (20:11)
[2024-02-29] MEDS: HYDROmorphone 2 MG/ML SYR 0.5 MG IVP ×2 (20:13→23:31)
--- NOTE | 2024-02-29 20:15 | DI.CT_ITS ---
Exam(s) CT ABDOMEN PELVIS WO EXAM: CT ABDOMEN PELVIS WO CLINICAL HISTORY: ?SBO, BM today with worsening pain/ ct yesterday. TECHNIQUE: Imaging Protocol: Axial computed tomography images with coronal and sagittal reformatted images were created and reviewed. Oral: yes / no COMPARISON: CT CT ABDOMEN PELVIS WO from 02/28/2024 FINDINGS: Lung Bases: No acute findings. Left lower lobe calcified granuloma. Liver: Severe hepatic steatosis. No suspicious mass. Gallbladder and biliary tract: Status post cholecystectomy. No radiodense calculus or biliary dila tion. Pancreas: Normal density. No abnormal calcifications or inflammatory process. Spleen: Normal. Kidneys: Normal size, contour and axis. No radiodense stones. No obstructive uropathy. No suspicious masses seen. Adrenal glands: No masses seen. Lymph nodes: Within normal limits. Vasculature: Abdominal aorta non-dilated. Atherosclerotic changes. Soft tissues: Spinal stimulator battery pack noted posteriorly. Metallic density left anterior abdom inal wall. Small adjacent fat containing hernia. Two other small fat containing hernias near the mi dline in the anterior abdominal wall. Bladder: No wall thickening. No mass or calculi. Bowel: Distal ileal anastomosis again noted in the midline of the pelvis which show again contains fe culent material. No significant obstruction. No evidence of leak. Small area of adjacent fat necro sis. Peritoneal cavity: No ascites. No focal collection. No mesenteric inflammatory response. Surgical c lips creating artifact in the left mid abdomen Reproductive organs: Status post hysterectomy. Bones: Posterior fusion hardware noted in lower lumbar spine. IMPRESSION: No significant change in appearance of ileal anastomosis. No evidence of obstruction RADIATION DOSE DELIVERED: Total DLP DATA REPOSITORY: All CT scans at this facility are submitted to the National Radiology Data Registry (NRDR) Dose Index Registry (DIR) with the [employer] (A[employer]). RADIATION OPTIMIZATION: All CT scans at this facility use at least one of these dose optimization te chniques: automated exposure control; mA and/or kV adjustment per patient size (includes targeted exa ms where dose is matched to clinical indication); or iterative reconstruction.
[2024-02-29] MEDS: Prochlorperazine 10 MG/2 ML VIAL 5 MG IM (20:16)
[2024-02-29 20:18] LABS: Lactate 1.7 mmol/L (0.6-1.4)
[2024-02-29 20:33] LABS: Abs Immature Grans 0.03 10^3/uL (0.0-0.06); Absolute Basophil Count 0.02 10^3/uL (0.0-0.2); Absolute Lymphocyte Count 2.35 10^3/uL (1.2-3.4); Absolute Monocyte Count 0.48 10^3/uL (0.1-0.8); Absolute Neutrophil Count 3.34 10^3/uL (1.2-6.7); Basophils % 0.3 %; Eosinophils % 4.6 %; HCT 36.2 % (36.0-46.0); HGB 12.2 g/dL (11.2-15.7); Immature Grans % 0.5 %; MCHC 33.7 % (32.0-36.0); MCV 92 fL (80-95); MPV 10.5 fL (8.0-11.0); Monocytes % 7.4 %; Neutrophils % 51.2 %; Platelet Count 224 10^3/uL (130-400); RBC 3.94 10^6/uL (3.93-5.22); RDW 13.2 % (11.7-14.6); WBC 6.52 10^3/uL (4.4-10.8)
[2024-02-29 21:14] LABS: Bilirubin Negative (Negative); Blood Negative (Negative); Clarity Clear (Clear); Glucose Negative (Negative); Ketones Negative (Negative); Leukocyte Esterase Negative (Negative); Nitrite Negative (Negative); Specific Gravity 1.015 (1.005-1.025); Urobilinogen 0.2 mg/dL (Up to 0.2); pH 5.5 (5-8)
--- NOTE | 2024-02-29 21:46 | DI.VRAD_ITS ---
PROCEDURE INFORMATION: Exam: CT Abdomen And Pelvis Without Contrast Exam date and time: 02/29/2024 8:37 PM Age: 73 years old Clinical indication: Abdominal pain; Generalized; Prior surgery; Surgery date: 6+ months; Surgery type: Spine surgery, colostomy reversal; Patient HX: ? Sbo, bm today with worsening pain/ CT yesterday TECHNIQUE: Imaging protocol: Computed tomography of the abdomen and pelvis without contrast. Radiation optimization: All CT scans at this facility use at least one of these dose optimization techniques: automated exposure control; mA and/or kV adjustment per patient size (includes targeted exams where dose is matched to clinical indication); or iterative reconstruction. COMPARISON: CT ABDOMEN PELVIS WO 02/28/2024 10:24 PM FINDINGS: Liver: Hepatic steatosis. Gallbladder and biliary ducts: Status post cholecystectomy. Pancreas: Normal. No ductal dilation. Spleen: Normal. No splenomegaly. Adrenal glands: Normal. No mass. Kidneys and ureters: Normal. No hydronephrosis. Stomach and bowel: Colonic diverticula. No bowel obstruction. Appendix: No evidence of appendicitis. Intraperitoneal space: Unremarkable. No free air. No significant fluid collection. Vasculature: Unremarkable. No abdominal aortic aneurysm. Lymph nodes: Unremarkable. No enlarged lymph nodes. Urinary bladder: Unremarkable as visualized. Reproductive: Status post hysterectomy. Bones/joints: Unremarkable. No acute fracture. Soft tissues: Unremarkable. IMPRESSION: No acute finding. Dictated and Authenticated by: Finn Hinds MD. Ordering:SHU Ann MD
[2024-02-29 21:56] LABS: ALT 36 U/L (14-59); AST 22 U/L (15-37); Albumin 3.8 g/dL (3.4-5.0); Alkaline Phosphatase 66 U/L (46-116); Anion Gap 7.1 mmol/L (3-11); BUN 18 mg/dL (7-18); Bilirubin, Total 0.34 mg/dL (0.2-1.0); CO2 28.9 mmol/L (21.0-32.0); CREATININE 1.1 mg/dL (0.55-1.02); Calcium 8.9 mg/dL (8.5-10.1); Chloride 101 mmol/L (98-107); Estimated GFR 53.39 (mL/min/1.73m2); Glucose 188 mg/dL (74-106); Lipase 30 U/L (16-77); Magnesium 1.9 mg/dL (1.8-2.4); Potassium 4.1 mmol/L (3.5-5.1); Sodium 137 mmol/L (136-145); Total Protein 7.1 g/dL (6.4-8.2)
--- NOTE | 2024-02-29 23:28 | W.PC.ACHO ---
Registration Status: Primary Language: Preferred Language: ED Information & Data Chief Complaint Abd Prob 02/29/24 19:17 Chief Complaint Abd Prob 02/29/24 19:10 Triage Note came in for L upper abd/rib 02/29/24 19:10 pain seen yesterday for bowel problems. called around 1630 wanting her to come back in due to something found on the xray- DRSky said there is leakage into her abd Medical / Surgical History (Last Reviewed 08/04/23 @ 10:29 by Randee Mustafa MD) Osteoarthritis of left knee Small bowel obstruction Diverticulitis PTSD (post-traumatic stress disorder) Light headedness Dermatitis Anxiety Petechial rash COPD (chronic obstructive pulmonary disease) (Last Reviewed 08/04/23 @ 10:29 by Randee Mustafa MD) History of colostomy reversal Most Recent Vital Signs Temperature 37.2 C 02/29/24 21:01 Temperature Source Oral 02/29/24 21:01 Pulse 80 02/29/24 21:01 Pulse 88 02/29/24 20:32 Respiratory Rate 20 02/29/24 21:01 Respiratory Effort Normal 02/29/24 21:00 Respiratory Depth Normal 02/29/24 21:00 Respiratory Pattern Normal 02/29/24 21:00 Blood Pressure 110/8 L 02/29/24 21:01 Blood Pressure Mean 76 02/29/24 20:35 Blood Pressure Position Sitting 02/29/24 20:23 Pulse Oximetry 90 L 02/29/24 21:01 Oxygen Delivery Method Room Air 02/29/24 21:01 Oxygen Flow Rate 0 02/29/24 21:01 Pain Level 8 02/29/24 19:10 Allergies alprazolam (From Xanax) Allergy (Severe, Verified 02/29/24 19:16) hives codeine Allergy (Severe, Verified 02/29/24 19:16) throat swells shut meperidine (From Demerol) Allergy (Severe, Verified 02/29/24 19:16) Hives Penicillins Allergy (Severe, Verified 02/29/24 19:16) throat swells shut butorphanol (From Stadol) Allergy (Intermediate, Verified 02/29/24 19:16) Anaphylaxis ketorolac (From Toradol) Adverse Reaction (Intermediate, Verified 02/29/24 19:16) Nausea IV Contrast Allergy (Severe, Uncoded 02/29/24 19:16) Skin Rash IV IV Catheter Type [Left Upper Peripheral IV arm] IV Catheter Type [Right Peripheral IV Forearm] IV Catheter Gauge [Left Upper 18 arm] IV Catheter Gauge [Right 18 Forearm] Diet Orders Category Date Time Status Nothing Per Oral [DIET] Nutrition 03/01/24 Breakfast Ordered Diagnostics 02/29/24 02/29/24 02/29/24 Range/Units 22:30 20:56 19:53 WBC 6.52 (4.4-10.8) 10^3/uL RBC 3.94 (3.93-5.22) 10^6/uL Hgb 12.2 (11.2-15.7) g/dL Hct 36.2 (36.0-46.0) % MCV 92 (80-95) fL MCH 31.0 (27.0-33.0) pg MCHC 33.7 (32.0-36.0) % RDW 13.2 (11.7-14.6) % Plt Count 224 (130-400) 10^3/uL MPV 10.5 (8.0-11.0) fL Immature Gran % 0.5 % Neutrophils % 51.2 % Lymphocytes % 36.0 % Monocytes % 7.4 % Eosinophils % 4.6 % Basophils % 0.3 % Nucleated RBC % 0.0 (0.0-0.3) % Absolute Neutrophils 3.34 (1.2-6.7) 10^3/uL Absolute Lymphocytes 2.35 (1.2-3.4) 10^3/uL Absolute Monocytes 0.48 (0.1-0.8) 10^3/uL Absolute Eosinophils 0.30 (0.0-0.7) 10^3/uL Absolute Basophils 0.02 (0.0-0.2) 10^3/uL VBG Lactate 1.7 H (0.6-1.4) mmol/L Sodium 137 (136-145) mmol/L Potassium 4.1 (3.5-5.1) mmol/L Chloride 101 (98-107) mmol/L Carbon Dioxide 28.9 (21.0-32.0) mmol/L Anion Gap 7.1 (3-11) mmol/L BUN 18 (7-18) mg/dL Creatinine 1.1 H (0.55-1.02) mg/dL Est GFR (CKD-EPI 2020) 53.39 (mL/min/1.73m2) Glucose 188 H (74-106) mg/dL Calcium 8.9 (8.5-10.1) mg/dL Magnesium 1.9 (1.8-2.4) mg/dL Total Bilirubin 0.34 (0.2-1.0) mg/dL AST 22 (15-37) U/L ALT 36 (14-59) U/L Alkaline Phosphatase 66 (46-116) U/L Troponin I Cancelled Total Protein 7.1 (6.4-8.2) g/dL Albumin 3.8 (3.4-5.0) g/dL Lipase 30 (16-77) U/L Urine Color Yellow (Yellow) Urine Clarity Clear (Clear) Urine pH 5.5 (5-8) Ur Specific [place] 1.015 (1.005-1.025) Urine Protein Negative (Neg-Trace) mg/dL Urine Ketones Negative (Negative) mg/dL Urine Blood Negative (Negative) Urine Nitrite Negative (Negative) Urine Bilirubin Negative (Negative) Urine Urobilinogen 0.2 (Up to 0.2) mg/dL Ur Leukocyte Esterase Negative (Negative) Urine Glucose Negative (Negative) mg/dL 02/29/24 19:53 Blood Culture - Pending Blood 02/29/24 19:53 Blood Culture - Pending Blood Intake and Output - 24 Hour Total 02/29/24 19:08 thru 02/29/24 21:28 Intake Total 1000 Balance 1000 Weight 73.028 kg Intake: IV 1000 Falls Risk Assessment History of Falls No History 02/29/24 20:23 Contributing Factors No Factors 02/29/24 20:23 Ambulatory Aids Independent 02/29/24 20:23 Tubes/Lines None 02/29/24 20:23 Gait Evaluation No gait disturbance 02/29/24 20:23 Fall Total Score 0 02/29/24 20:23 Level of Risk Standard/Low Risk 02/29/24 20:23 v v v v v v v v v Sending and/or Receiving Nurses: Please use comment section below to note any information pertinent to the patient hand-off not included above. Information / Comments: Pt came to ED on 02/27 c/o abd pain. CT w/o contrast done, with no acute findings by [facility]. Pt discharged home, however radiology called pt back as they believed she may be starting to develop a SBO. Pt c/o fever at home, but premedicated with tylenol before return to ED today. Pt received Dilaudid and compazine in ED along with 1L of NS. Pt 1A to [facility]. Report received from: Andreas Cotto RN
--- NOTE | 2024-02-29 23:33 | W.ED.GENAD ---
Discharge Plan Disposition Patient Disposition: Admit to [facility] Condition: Stable Discharge Details Clinical Impression: SBO (small bowel obstruction) Admit Date/Time: 02/29/24 22:24 Admit Provider: Fernando Rizo Attending Provider: Fernando Rizo Primary Care Provider: Nikolas Matos ED Provider: Marissa Mabry Discharge Data Discharge Date/Time-TO BE ENTERED AT DEPARTURE: 02/29/24 23:33 HPI General Date/Time Provider Initiated Documentation: 02/29/24 19:28. HPI Narrative: This 73-year-old female with history of asthma, COPD, coronary artery disease, hyperlipidemia, hypertension, diverticulitis with bowel perforation and resection with anastomosis in [place]. Presents with report of abdominal pain with nausea, 1 episode of vomiting yesterday, not mild nausea today without vomiting. Bowel movement this morning after laxative use. Patient was called and told to return to the hospital with possible bowel obstruction on CT scan which is why she presents. She states the pain is worsened today. Denies any fever or chills. Denies any blood in stool. Related Data Home Medications ?Medication ?Instructions ?Recorded ?Confirmed albuterol sulfate 90 mcg/actuation 2 puff inhalation Q6H PRN 04/07/22 02/29/24 aerosol inhaler amlodipine 10 mg tablet 10 mg PO DAILY 04/07/22 02/29/24 aspirin 81 mg tablet,delayed 81 mg PO DAILY 04/07/22 02/29/24 release diphenhydramine HCl 25 mg capsule 25 mg PO QHS PRN 04/07/22 02/29/24 (Allergy (diphenhydramine)) fluticasone 250 mcg-salmeterol 50 1 inh inhalation BID 04/07/22 02/03/23 mcg/dose blistr powdr for inhalation (Advair Diskus) isosorbide mononitrate 60 mg 60 mg PO DAILY 04/07/22 02/29/24 tablet,extended release 24 hr nitroglycerin 0.4 mg sublingual 0.4 mg sublingual Q5M PRN 04/07/22 02/29/24 tablet omeprazole 20 mg capsule,delayed 20 mg PO BID 04/07/22 02/29/24 release pravastatin 20 mg tablet 20 mg PO DAILY 04/07/22 02/29/24 stool softener PO BID 04/07/22 08/04/23 hydroxyzine HCl 25 mg tablet 25 mg PO TID PRN 04/21/22 02/29/24 metformin 1,000 mg tablet 1,000 mg PO BID 04/21/22 02/29/24 empagliflozin 10 mg tablet 10 mg PO DAILY 08/05/22 02/29/24 (Jardiance) losartan 25 mg tablet 100 mg PO DAILY 08/05/22 02/29/24 triamcinolone acetonide 0.1 % 1 applic topical BID 08/05/22 02/29/24 topical cream levalbuterol tartrate 45 2 inh inhalation Q6H 07/06/23 08/04/23 mcg/actuation aerosol inhaler topiramate 25 mg tablet (Topamax) 25 mg PO BID 07/06/23 02/29/24 atorvastatin 20 mg tablet 20 mg PO DAILY 01/27/24 famotidine 40 mg tablet 40 mg PO DAILY 01/27/24 02/29/24 fluticasone furoate 100 1 inh inhalation DAILY 01/27/24 02/29/24 mcg-vilanterol 25 mcg/dose inhalation powder (Breo Ellipta) metoprolol succinate 100 mg 100 mg PO DAILY 01/27/24 02/29/24 tablet,extended release 24 hr trazodone 100 mg tablet 100 mg PO QHS PRN 01/27/24 02/29/24 Allergies Allergy/AdvReac Type Severity Reaction Status Date / Time alprazolam (From Xanax) Allergy Severe hives Verified 02/29/24 19:16 codeine Allergy Severe throat Verified 02/29/24 19:16 swells shut meperidine (From Demerol) Allergy Severe Hives Verified 02/29/24 19:16 Penicillins Allergy Severe throat Verified 02/29/24 19:16 swells shut butorphanol (From Stadol) Allergy Intermediate Anaphylaxis Verified 02/29/24 19:16 ketorolac (From Toradol) AdvReac Intermediate Nausea Verified 02/29/24 19:16 IV Contrast Allergy Severe Skin Rash Uncoded 02/29/24 19:16 General Stated Complaint: Abd Prob ABRAHAM: 2 Exam Narrative Exam Narrative: Alert and oriented 73-year-old female in acute distress, pupils equal round reactive to light and accommodation, moist mucous membranes, lungs clear to auscultation, cardiac rate rhythm regular, diffuse abdominal tenderness with guarding, no rebound, neurovascularly intact bilateral lower extremities, petechiae noted, neurovascularly intact Course Vital Signs Vital signs: Vital Signs Temperature 37.0 C 02/29/24 19:10 Pulse 96 H 02/29/24 19:10 Respiratory Rate 12 02/29/24 19:10 Blood Pressure 169/77 H 02/29/24 19:10 Pulse Oximetry 93 02/29/24 19:10 Temperature 37.2 C 02/29/24 21:01 Temperature Source Oral 02/29/24 21:01 Pulse 69 02/29/24 23:16 Pulse 74 02/29/24 23:20 Respiratory Rate 12 02/29/24 23:20 Respiratory Effort Normal 02/29/24 21:00 Respiratory Depth Normal 02/29/24 21:00 Respiratory Pattern Normal 02/29/24 21:00 Blood Pressure 121/56 L 02/29/24 23:16 Blood Pressure Mean 76 02/29/24 23:16 Blood Pressure Position Sitting 02/29/24 20:23 Pulse Oximetry 92 02/29/24 23:20 Oxygen Delivery Method Room Air 02/29/24 21:01 Oxygen Flow Rate 0 02/29/24 21:01 Pain Level 8 02/29/24 19:10 Lab/Test Results Lab/Test Results: 02/29/24 19:53 Blood Blood Culture - Pending 02/29/24 19:53 Blood Blood Culture - Pending Laboratory Tests Range/Units 02/29/24 02/29/24 19:53 20:56 WBC (4.4-10.8) 10^3/uL 6.52 RBC (3.93-5.22) 10^6/uL 3.94 Hgb (11.2-15.7) g/dL 12.2 Hct (36.0-46.0) % 36.2 MCV (80-95) fL 92 MCH (27.0-33.0) pg 31.0 MCHC (32.0-36.0) % 33.7 RDW (11.7-14.6) % 13.2 Plt Count (130-400) 10^3/uL 224 MPV (8.0-11.0) fL 10.5 Immature Gran % % 0.5 Neutrophils % % 51.2 Lymphocytes % % 36.0 Monocytes % % 7.4 Eosinophils % % 4.6 Basophils % % 0.3 Nucleated RBC % (0.0-0.3) % 0.0 Absolute Neutrophils (1.2-6.7) 10^3/uL 3.34 Absolute Lymphocytes (1.2-3.4) 10^3/uL 2.35 Absolute Monocytes (0.1-0.8) 10^3/uL 0.48 Absolute Eosinophils (0.0-0.7) 10^3/uL 0.30 Absolute Basophils (0.0-0.2) 10^3/uL 0.02 VBG Lactate (0.6-1.4) mmol/L 1.7 H Sodium (136-145) mmol/L 137 Potassium (3.5-5.1) mmol/L 4.1 Chloride (98-107) mmol/L 101 Carbon Dioxide (21.0-32.0) mmol/L 28.9 Anion Gap (3-11) mmol/L 7.1 BUN (7-18) mg/dL 18 Creatinine (0.55-1.02) mg/dL 1.1 H Est GFR (CKD-EPI 2020) (mL/min/1.73m2) 53.39 Glucose (74-106) mg/dL 188 H Calcium (8.5-10.1) mg/dL 8.9 Magnesium (1.8-2.4) mg/dL 1.9 Total Bilirubin (0.2-1.0) mg/dL 0.34 AST (15-37) U/L 22 ALT (14-59) U/L 36 Alkaline Phosphatase (46-116) U/L 66 Total Protein (6.4-8.2) g/dL 7.1 Albumin (3.4-5.0) g/dL 3.8 Lipase (16-77) U/L 30 Urine Color (Yellow) Yellow Urine Clarity (Clear) Clear Urine pH (5-8) 5.5 Ur Specific [place] (1.005-1.025) 1.015 Urine Protein (Neg-Trace) mg/dL Negative Urine Ketones (Negative) mg/dL Negative Urine Blood (Negative) Negative Urine Nitrite (Negative) Negative Urine Bilirubin (Negative) Negative Urine Urobilinogen (Up to 0.2) mg/dL 0.2 Ur Leukocyte Esterase (Negative) Negative Urine Glucose (Negative) mg/dL Negative Medical Decision Making 3-year-old female presenting with abdominal pain with concern for bowel obstruction. Patient reportedly has a significant reaction to contrast and was told not to receive contrast in the future even with prep. I did order another CT noncontrast, virtual radiology interpreted the CT is negative however this was over read by our radiologist last evening and it was positive for developing bowel obstruction. I am concerned that there may be a developing bowel obstruction on this CT as well and patient's pain is concerning. Her diagnostic labs are reassuring. At this time I think she would benefit from admission with n.p.o. status, I did discuss the case with Dr. Rizo who admit patient to his service for exam tomorrow. Patient received antiemetics and Dilaudid with adequate relief in symptoms, will admit patient overnight, comfortable with plan, n.p.o. status. Maintenance fluids ordered. Full CODE STATUS Quality:SDOH Health Related Social Needs: No Data to Display PFSH All Active Problems (Updated 02/29/24 @ 23:38 by KIMBERLY Tijerina) SBO (small bowel obstruction) (Acute) Abdominal discomfort (Acute) Chronic constipation (Acute) Arthritis (Acute) Back pain (Acute) Eye disorder (Acute) GERD (gastroesophageal reflux disease) (Chronic) Obesity (Chronic) Claustrophobia (Acute) Hyperlipidemia (Acute) Hypertension (Chronic) Osteoporosis (Chronic) Headache (Acute) Asthma with COPD (chronic obstructive pulmonary disease) (Acute) Parkinsons disease (Chronic) 02/03/23 pt has a DBS implanted for this RH CAD (coronary artery disease) (Chronic) Vitamin D deficiency (Acute) Nausea and vomiting (Acute) Left upper quadrant abdominal pain (Acute) Diarrhea (Acute) Screening for colon cancer (Acute) Corns and callosities (Acute) Diabetes mellitus (Chronic) Cubital tunnel syndrome on left (Acute) Cubital tunnel syndrome on right (Acute) Trigger finger, left middle finger (Acute) Trigger finger, right middle finger (Acute) Left carpal tunnel syndrome (Acute) Right carpal tunnel syndrome (Acute) Medical History Osteoarthritis of left knee mild Small bowel obstruction Diverticulitis PTSD (post-traumatic stress disorder) Light headedness Dermatitis Anxiety Petechial rash upper and lower extremities, chronic. Started in 2018. COPD (chronic obstructive pulmonary disease) Surgical History History of colostomy reversal Social History Smoking/Tobacco Use Status: Former Tobacco Use Quit Date: 06/15/11 Smoking risk assessment performed?: Yes Alcohol Intake: never Drug use: Never Housing: house Do you feel safe at home: Yes Do you feel safe in your relationship?: Yes
[2024-03-01] MEDS: DEXTROSE 5%-0.45% SALINE 1,000 ML 75 ML IV ×2 (00:38→15:02)
[2024-03-01] MEDS: Gastrografin 120 ML BTL PO (00:38)
[2024-03-01] MEDS: Normal Saline Flush 10 ML SYR IVP ×7 (00:38→18:12)
[2024-03-01 03:11] VITALS: BP 149/80; PULSE 82; RESP 18; TEMP 36; O2SAT 92
[2024-03-01] MEDS: HYDROmorphone 2 MG/ML SYR 0.5 MG IVP ×5 (03:43→20:34)
[2024-03-01 05:53] VITALS: BP 139/84; PULSE 80; RESP 17; TEMP 36; O2SAT 94
[2024-03-01] MEDS: Insulin Aspart 300 UNITS/3 ML PEN SC ×2 (06:41→12:15)
[2024-03-01 07:17] VITALS: BP 142/73; PULSE 73; RESP 18; TEMP 36.4; O2SAT 97
--- NOTE | 2024-03-01 07:26 | W.PM.HP.N ---
Date of service: 03/01/24 Time of Service: 07:26 Assessment and Plan Assessment and plan (1) SBO (small bowel obstruction): Status: Acute Assessment and plan: I was able to review her CT scan, and I do not actually see much signs of small bowel obstruction. There is certainly some fecalization around her anastomosis, that I suppose could cause some obstructive type symptoms, although the proximal colon is not particularly dilated. I will proceed with a Gastrografin challenge to see if contrast gets to the rectum. If that is the case, then I think she probably benefit from some enemas, and perhaps a bowel prep with colonoscopy for direct visualization of the anastomosis. History of Present Illness History of Present Illness Chief Complaint: Abdominal pain Narrative: Kae is 73 years old. Her past medical and surgical history that is most relevant includes complicated diverticulitis that required Moore's procedure approximately 3 years ago. She did well with her colostomy, and about 6 months after that, she underwent reversal. It sounds like she has been plagued by chronic constipation and abdominal discomfort after that. She tells me she did require another surgery around that same time to stretch the connection. To the best of her recollection, that was done through an open operation as opposed to colonoscopically. Other significant medical history includes diabetes. She came to the emergency department approximately 48 hours ago complaining of abdominal pain and bloating. In her words, she was constipated. Labs and vitals were reassuring, and she underwent a CAT scan that showed some fecalization around her anastomosis. Delayed interpretation of that CAT scan suggested the possibility of bowel obstruction. She was called back to the ER. Her symptoms had not really changed much in the interim, although she was having bowel movements. She underwent another CT scan that appeared mostly unchanged. She is admitted for observation. Review of Systems Constitutional Constitutional: Reports fatigue, Denies fever(s), Reports poor appetite and Denies weight loss Eyes Eyes: Reports system reviewed and no additional complaints, except as documented ENT Ears, Nose, Mouth, and Throat: Reports system reviewed and no additional complaints, except as documented Cardiovascular Cardiovascular: Denies chest pain and Denies dyspnea Respiratory Respiratory: Denies chest congestion, Reports cough and Denies dyspnea Gastrointestinal Gastrointestinal: Reports abdominal pain, Reports bloating, Reports diarrhea, Reports nausea and Denies vomiting Genitourinary Genitourinary: Reports system reviewed and no additional complaints, except as documented Musculoskeletal Musculoskeletal: Reports abnormal gait Neurologic Neurologic: Reports abnormal gait Endocrine Endocrine: Reports fatigue Hematologic/Lymphatic Hematologic/Lymphatic: Denies easy bleeding and Denies easy bruising PFSH All Active Problems SBO (small bowel obstruction) (Acute) Abdominal discomfort (Acute) Chronic constipation (Acute) Arthritis (Acute) Back pain (Acute) Eye disorder (Acute) GERD (gastroesophageal reflux disease) (Chronic) Obesity (Chronic) Claustrophobia (Acute) Hyperlipidemia (Acute) Hypertension (Chronic) Osteoporosis (Chronic) Headache (Acute) Asthma with COPD (chronic obstructive pulmonary disease) (Acute) Parkinsons disease (Chronic) 02/03/23 pt has a DBS implanted for this RH CAD (coronary artery disease) (Chronic) Vitamin D deficiency (Acute) Nausea and vomiting (Acute) Left upper quadrant abdominal pain (Acute) Diarrhea (Acute) Screening for colon cancer (Acute) Corns and callosities (Acute) Diabetes mellitus (Chronic) Cubital tunnel syndrome on left (Acute) Cubital tunnel syndrome on right (Acute) Trigger finger, left middle finger (Acute) Trigger finger, right middle finger (Acute) Left carpal tunnel syndrome (Acute) Right carpal tunnel syndrome (Acute) Medical History Osteoarthritis of left knee mild Small bowel obstruction Diverticulitis PTSD (post-traumatic stress disorder) Light headedness Dermatitis Anxiety Petechial rash upper and lower extremities, chronic. Started in 2018. COPD (chronic obstructive pulmonary disease) Surgical History History of colostomy reversal Social History Smoking/Tobacco Use Status: Former Tobacco Use Quit Date: 06/15/11 Smoking risk assessment performed?: Yes Alcohol Intake: never Drug use: Never Housing: house Do you feel safe at home: Yes Do you feel safe in your relationship?: Yes Meds Allergies and Home Medications Allergies Allergy/AdvReac Type Severity Reaction Status Date / Time alprazolam (From Xanax) Allergy Severe hives Verified 02/29/24 19:16 codeine Allergy Severe throat Verified 02/29/24 19:16 swells shut meperidine (From Demerol) Allergy Severe Hives Verified 02/29/24 19:16 Penicillins Allergy Severe throat Verified 02/29/24 19:16 swells shut butorphanol (From Stadol) Allergy Intermediate Anaphylaxis Verified 02/29/24 19:16 Iodinated Contrast Media Allergy Intermediate rash, Verified 03/01/24 07:09 nausea, vomiting ketorolac (From Toradol) AdvReac Intermediate Nausea Verified 02/29/24 19:16 IV Contrast Allergy Severe Skin Rash Uncoded 02/29/24 19:16 Home Medications ?Medication ?Instructions ?Recorded ?Confirmed ?Type Docusate Sodium 200 mg PO HS 04/07/22 02/29/24 History albuterol sulfate 90 mcg/actuation 2 puff inhalation Q6H PRN 04/07/22 02/29/24 History aerosol inhaler amlodipine 10 mg tablet 10 mg PO DAILY 04/07/22 02/29/24 History aspirin 81 mg tablet,delayed 81 mg PO DAILY 04/07/22 02/29/24 History release diphenhydramine HCl 25 mg capsule 25 mg PO QHS PRN 04/07/22 02/29/24 History (Allergy (diphenhydramine)) fluticasone 250 mcg-salmeterol 50 1 inh inhalation BID 04/07/22 02/29/24 History mcg/dose blistr powdr for inhalation (Advair Diskus) isosorbide mononitrate 60 mg 60 mg PO DAILY 04/07/22 02/29/24 History tablet,extended release 24 hr nitroglycerin 0.4 mg sublingual 0.4 mg sublingual Q5M PRN 04/07/22 02/29/24 History tablet omeprazole 20 mg capsule,delayed 20 mg PO BID 04/07/22 02/29/24 History release pravastatin 20 mg tablet 20 mg PO DAILY 04/07/22 02/29/24 History hydroxyzine HCl 25 mg tablet 25 mg PO TID PRN 04/21/22 02/29/24 History metformin 1,000 mg tablet 1,000 mg PO BID 04/21/22 02/29/24 History empagliflozin 10 mg tablet 10 mg PO DAILY 08/05/22 02/29/24 History (Jardiance) losartan 25 mg tablet 100 mg PO DAILY 08/05/22 02/29/24 History triamcinolone acetonide 0.1 % 1 applic topical BID 08/05/22 02/29/24 History topical cream levalbuterol tartrate 45 2 inh inhalation Q6H 07/06/23 02/29/24 History mcg/actuation aerosol inhaler topiramate 25 mg tablet (Topamax) 25 mg PO BID 07/06/23 02/29/24 History atorvastatin 20 mg tablet 20 mg PO DAILY 01/27/24 02/29/24 History famotidine 40 mg tablet 40 mg PO DAILY 01/27/24 02/29/24 History fluticasone furoate 100 1 inh inhalation DAILY 01/27/24 02/29/24 History mcg-vilanterol 25 mcg/dose inhalation powder (Breo Ellipta) metoprolol succinate 100 mg 100 mg PO DAILY 01/27/24 02/29/24 History tablet,extended release 24 hr trazodone 100 mg tablet 100 mg PO QHS PRN 01/27/24 02/29/24 History Exam Const General: cooperative and comfortable Nutritional Appearance: obese Orientation: alert, awake and oriented x3 Neck Neck: normal visual inspection and full ROM Resp Effort & Inspection: normal respiratory effort and no cough Auscultation: clear to auscultation bilaterally GI Palpation: soft, no guarding, no hernias and tender (Mild diffuse) Auscultation: normal bowel sounds Results Imaging Abdomen CT scan report/results: report reviewed and image reviewed CT scan - pelvis: report reviewed and image reviewed Labs 02/29/24 19:53 02/29/24 19:53 Labs: Laboratory Results - last 24 hr 02/29/24 02/29/24 02/29/24 19:53 20:56 22:30 WBC 6.52 RBC 3.94 Hgb 12.2 Hct 36.2 MCV 92 MCH 31.0 MCHC 33.7 RDW 13.2 Plt Count 224 MPV 10.5 Immature Gran % 0.5 Neutrophils % 51.2 Lymphocytes % 36.0 Monocytes % 7.4 Eosinophils % 4.6 Basophils % 0.3 Nucleated RBC % 0.0 Absolute Neutrophils 3.34 Absolute Lymphocytes 2.35 Absolute Monocytes 0.48 Absolute Eosinophils 0.30 Absolute Basophils 0.02 VBG Lactate 1.7 H Sodium 137 Potassium 4.1 Chloride 101 Carbon Dioxide 28.9 Anion Gap 7.1 BUN 18 Creatinine 1.1 H Est GFR (CKD-EPI 2020) 53.39 Glucose 188 H Calcium 8.9 Magnesium 1.9 Total Bilirubin 0.34 AST 22 ALT 36 Alkaline Phosphatase 66 Troponin I Cancelled Total Protein 7.1 Albumin 3.8 Lipase 30 Urine Color Yellow Urine Clarity Clear Urine pH 5.5 Ur Specific [place] 1.015 Urine Protein Negative Urine Ketones Negative Urine Blood Negative Urine Nitrite Negative Urine Bilirubin Negative Urine Urobilinogen 0.2 Ur Leukocyte Esterase Negative Urine Glucose Negative Last Vital Signs Temp 97.5 F L 03/01/24 07:17 Pulse 73 03/01/24 07:17 Resp 18 03/01/24 07:17 BP 142/73 H 03/01/24 07:17 Pulse Ox 97 03/01/24 07:17 Time Spent Time spent with Patient: >75 minutes Time was spent: preparing to see the patient(eg.review tests), obtaining and/or reviewing separately otained hiistory, ordering medications,tests, procedures, indepentently interpreting results and counseling the patient
[2024-03-01 07:27] LABS: Abs Immature Grans 0.01 10^3/uL (0.0-0.06); Absolute Basophil Count 0.03 10^3/uL (0.0-0.2); Absolute Eosinophil Count 0.26 10^3/uL (0.0-0.7); Absolute Lymphocyte Count 2.36 10^3/uL (1.2-3.4); Absolute Monocyte Count 0.49 10^3/uL (0.1-0.8); Absolute Neutrophil Count 2.04 10^3/uL (1.2-6.7); Basophils % 0.6 %; HGB 12.2 g/dL (11.2-15.7); Immature Grans % 0.2 %; Lymphocytes % 45.5 %; MCH 30.4 pg (27.0-33.0); MCV 92 fL (80-95); MPV 10.6 fL (8.0-11.0); Monocytes % 9.4 %; Neutrophils % 39.3 %; Platelet Count 204 10^3/uL (130-400); RBC 4.01 10^6/uL (3.93-5.22); RDW 13.4 % (11.7-14.6); RDW-SD 45.8 fL; WBC 5.19 10^3/uL (4.4-10.8)
[2024-03-01 07:43] LABS: Anion Gap 8.7 mmol/L (3-11); BUN 14 mg/dL (7-18); CO2 27.3 mmol/L (21.0-32.0); CREATININE 0.9 mg/dL (0.55-1.02); Calcium 8.4 mg/dL (8.5-10.1); Chloride 104 mmol/L (98-107); Estimated GFR 67.92 (mL/min/1.73m2); Glucose 172 mg/dL (74-106); Potassium 3.6 mmol/L (3.5-5.1); Sodium 140 mmol/L (136-145)
--- NOTE | 2024-03-01 07:59 | PGE_ITS ---
Date of Service Date of service: 03/01/24 Time of Service: 07:59 Assessment and Plan Assessment and plan (1) SBO (small bowel obstruction): Status: Acute Assessment and plan: Awaiting abdominal Xrays; for gastrografin challenge She has started having BMs, which is reassuring. However she continues to have nausea and right sided abdominal pain. Encouraged her to sit in the chair and ambulate later this morning. Continue IV fluids Continue with medical management of her SBO at this time. Subjective Subjective Interval history since last seen: Arrive with patient resting in bed. She states she has been having BMs this morning, which she noted she had some bright red blood in the toilet following the BM. She describes feeling slightly nauseous and some abdominal pain this morning, however it is less than yesterday. Exam Const General: cooperative and comfortable Orientation: alert and oriented x3 GI Inspection: normal to inspection Palpation: soft, no guarding and tender in the RLQ and in the RUQ Objective Last Vital Signs Temp 36.4 C L 03/01/24 07:17 Pulse 73 03/01/24 07:17 Resp 18 03/01/24 07:17 BP 142/73 H 03/01/24 07:17 Pulse Ox 97 03/01/24 07:17 Laboratory Results - last 24 hr 02/29/24 02/29/24 02/29/24 19:53 20:56 22:30 WBC 6.52 RBC 3.94 Hgb 12.2 Hct 36.2 MCV 92 MCH 31.0 MCHC 33.7 RDW 13.2 Plt Count 224 MPV 10.5 Immature Gran % 0.5 Neutrophils % 51.2 Lymphocytes % 36.0 Monocytes % 7.4 Eosinophils % 4.6 Basophils % 0.3 Nucleated RBC % 0.0 Absolute Neutrophils 3.34 Absolute Lymphocytes 2.35 Absolute Monocytes 0.48 Absolute Eosinophils 0.30 Absolute Basophils 0.02 VBG Lactate 1.7 H Sodium 137 Potassium 4.1 Chloride 101 Carbon Dioxide 28.9 Anion Gap 7.1 BUN 18 Creatinine 1.1 H Est GFR (CKD-EPI 2020) 53.39 Glucose 188 H Calcium 8.9 Magnesium 1.9 Total Bilirubin 0.34 AST 22 ALT 36 Alkaline Phosphatase 66 Troponin I Cancelled Total Protein 7.1 Albumin 3.8 Lipase 30 Urine Color Yellow Urine Clarity Clear Urine pH 5.5 Ur Specific [place] 1.015 Urine Protein Negative Urine Ketones Negative Urine Blood Negative Urine Nitrite Negative Urine Bilirubin Negative Urine Urobilinogen 0.2 Ur Leukocyte Esterase Negative Urine Glucose Negative 03/01/24 06:10 WBC 5.19 RBC 4.01 Hgb 12.2 Hct 37.0 MCV 92 MCH 30.4 MCHC 33.0 RDW 13.4 Plt Count 204 MPV 10.6 Immature Gran % 0.2 Neutrophils % 39.3 Lymphocytes % 45.5 Monocytes % 9.4 Eosinophils % 5.0 Basophils % 0.6 Nucleated RBC % 0.0 Absolute Neutrophils 2.04 Absolute Lymphocytes 2.36 Absolute Monocytes 0.49 Absolute Eosinophils 0.26 Absolute Basophils 0.03 VBG Lactate Sodium 140 Potassium 3.6 Chloride 104 Carbon Dioxide 27.3 Anion Gap 8.7 BUN 14 Creatinine 0.9 Est GFR (CKD-EPI 2020) 67.92 Glucose 172 H Calcium 8.4 L Magnesium Total Bilirubin AST ALT Alkaline Phosphatase Troponin I Total Protein Albumin Lipase Urine Color Urine Clarity Urine pH Ur Specific [place] Urine Protein Urine Ketones Urine Blood Urine Nitrite Urine Bilirubin Urine Urobilinogen Ur Leukocyte Esterase Urine Glucose Time Spent with Patient Time Spent with Patient: <25 minutes Time was spent: preparing to see the patient(eg.review tests), obtaining and/or reviewing separately otained hiistory and counseling the patient
--- NOTE | 2024-03-01 08:19 | DI.RAD_ITS ---
Exam(s) XR ABDOMEN FLAT PLATE EXAM: XR ABDOMEN FLAT PLATE CLINICAL HISTORY: gasrographin challenge. TECHNIQUE: 2D digital imaging was performed. COMPARISON: CT CT ABDOMEN PELVIS WO from 02/29/2024 FINDINGS: AP supine view of the abdomen-pelvis reveals no evidence of significant small bowel obstruction. The administered oral contrast is located in the colon. Again noted is a right-sided trans sacral stimulator and epidural stimulator leads and multilevel fus ion hardware in the lower lumbar spine as well as surgical clips in the right upper quadrant from ti or cholecystectomy. IMPRESSION: No evidence of significant small bowel obstruction. DATA REPOSITORY: RADIATION DOSE DELIVERED:
--- NOTE | 2024-03-01 08:53 | PDOC.CMIN ---
Date of service: 03/01/24 Time of Service: 08:53 Care Management Initial Assmt Initial Assessment Reason for Hospitalization: SBO Functional Status/Living Situation Patient Presentation: Kae was sitting up in bed when CM met with her. She was polite and agreeable to conversation. Kae reported that she has 3 children but has been estranged from them for the past 2 years. She does communicate with her 37 year old grandson Dom. Kae is retired but shared that her last job was for [employer], a company similar to [employer]. She stated she enjoyed the job and that it paid well. Kae was admitted with a possible SBO. She informed CM that she continues to have pain, but less than yesterda. She has not required the use of an NG tube nor has she needed anti-emetics for nausea. Kae began passing stool, which is promising. She also had an abdominal xray with a gastrograffin challenge that reported : No evidence of significant small bowel obstruction. She has a clear liquid diet ordered but has not had anything to eat yet. 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) Instrumental Activities of Daily Living (ADLs): Independent Medications Medication Management: No Issues/Barriers identified Advance Directives Advance Directives: Do you have an Advance Directive: N 02/29/24 01:50 AD On File at [facility]: N 02/28/24 21:44 Date Asked 02/29/24 02/29/24 01:50 AD Date Reviewed COLST On File at [facility] COLST Date Scanned Portal Pt does not currently have a portal and education provided: No Insurance Coverage/Financial Issues Insurance: BC/BS out [place] Medicare Care Team Visit Care Team Role Provider Type Nikolas Matos Primary Care Provider NON-[facility] STAFF PHYSICIAN KIMBERLY Tijerina Emergency Provider PHYSICIANS [facility] [employer] Fernando Rizo MD Admit Provider [facility] STAFF PHYSICIAN Attending Provider Discharge Potential Discharge Needs: PCP F/U Appt and Surgical F/U Appt Anticipated Barriers to Discharge: Medical Status Patient/Family Education Needs: Review discharge instructions, discuss Ask Me Three Transportation: Private vehicle Plan: Anticipate Kae will be discharged home with no new services when medically stable. She will follow up with her surgeon, PCP and plan of care and transport with family. CM will follow and support discharge needs. [facility] All Active Problems SBO (small bowel obstruction) (Acute) Abdominal discomfort (Acute) Chronic constipation (Acute) Arthritis (Acute) Back pain (Acute) Eye disorder (Acute) GERD (gastroesophageal reflux disease) (Chronic) Obesity (Chronic) Claustrophobia (Acute) Hyperlipidemia (Acute) Hypertension (Chronic) Osteoporosis (Chronic) Headache (Acute) Asthma with COPD (chronic obstructive pulmonary disease) (Acute) Parkinsons disease (Chronic) 02/03/23 pt has a DBS implanted for this RH CAD (coronary artery disease) (Chronic) Vitamin D deficiency (Acute) Nausea and vomiting (Acute) Left upper quadrant abdominal pain (Acute) Diarrhea (Acute) Screening for colon cancer (Acute) Corns and callosities (Acute) Diabetes mellitus (Chronic) Cubital tunnel syndrome on left (Acute) Cubital tunnel syndrome on right (Acute) Trigger finger, left middle finger (Acute) Trigger finger, right middle finger (Acute) Left carpal tunnel syndrome (Acute) Right carpal tunnel syndrome (Acute) Medical History Osteoarthritis of left knee mild Small bowel obstruction Diverticulitis PTSD (post-traumatic stress disorder) Light headedness Dermatitis Anxiety Petechial rash upper and lower extremities, chronic. Started in 2018. COPD (chronic obstructive pulmonary disease) Surgical History History of colostomy reversal Social History Smoking/Tobacco Use Status: Former Tobacco Use Quit Date: 06/15/11 Smoking risk assessment performed?: Yes Alcohol Intake: never Drug use: Never Housing: house Do you feel safe at home: Yes Do you feel safe in your relationship?: Yes SDOH(Care Management) Screening Will the Patient Participate in the Screening?: Yes Do you worry about having a steady place to live?: no Problems where you live: no known problems In the past 12 months, have you had to go without electric, gas, oil or water in your home?: no Have you or anyone in your house had to go without enough food to eat?: no Has lack of transportation kept you from medical appointments or from doing things needed for daily living?: no Has anyone in your support network made you feel unsafe for any reason?: no
[2024-03-01] MEDS: Enoxaparin 40 MG/0.4 ML SYR SC (09:13)
[2024-03-01] MEDS: Losartan 25 MG TAB 100 MG PO (09:14)
[2024-03-01] MEDS: amLODIPine 10 MG TAB PO (09:14)
[2024-03-01] MEDS: Isosorbide Mononitrate 30 MG TABCR 60 MG PO (09:15)
[2024-03-01] MEDS: Famotidine 20 MG TAB 40 MG PO (09:15)
[2024-03-01] MEDS: Atorvastatin 20 MG TAB PO (09:15)
[2024-03-01] MEDS: Omeprazole 20 MG CAPCR PO ×2 (09:16→19:47)
[2024-03-01] MEDS: Metoprolol CR 100 MG TABCR PO (09:16)
[2024-03-01 09:20] VITALS: BP 145/56
--- NOTE | 2024-03-01 11:43 | PHACLINREV_ITS ---
Pharmacy Admission Review Admission Clinical Review Admission Pharmacy Review: SBO (small bowel obstruction) (Acute) alprazolam (From Xanax) Allergy (Severe, Verified 02/29/24 19:16) hives codeine Allergy (Severe, Verified 02/29/24 19:16) throat swells shut meperidine (From Demerol) Allergy (Severe, Verified 02/29/24 19:16) Hives Penicillins Allergy (Severe, Verified 02/29/24 19:16) throat swells shut butorphanol (From Stadol) Allergy (Intermediate, Verified 02/29/24 19:16) Anaphylaxis Iodinated Contrast Media Allergy (Intermediate, Verified 03/01/24 07:09) rash, nausea, vomiting ketorolac (From Toradol) Adverse Reaction (Intermediate, Verified 02/29/24 19:16 ) Nausea IV Contrast Allergy (Severe, Uncoded 02/29/24 19:16) Skin Rash Height 5 ft Weight 76 kg Comments Comments/Follow Ups: NPO at midnight tonight, colonoscopy scheduled for tomorrow Pharmacy Admission Review Renal Dosing Renal Dosing: BUN 14 mg/dL (7-18) 03/01/24 06:10 Creatinine 0.9 mg/dL (0.55-1.02) 03/01/24 06:10 Medications needing adjustments: Reviewed (CrCl 46.32 mL/min, SCr decreased from 1.1) List of meds needing interventions: Current medications are okay Anticoagulation Anticoagulation: Hgb 12.2 g/dL (11.2-15.7) 03/01/24 06:10 Hct 37.0 % (36.0-46.0) 03/01/24 06:10 Plt Count 204 10^3/uL (130-400) 03/01/24 06:10 Creatinine 0.9 mg/dL (0.55-1.02) 03/01/24 06:10 DVT Prophylaxis: Reviewed Medications: Enoxaparin (40mg daily) Opiate Usage Evaluate Pain Scale/Pains Meds: Reviewed (PRN hydromorphone - 1 dose given) Scheduled Bowel Reg ordered if on Opiates?: No Relevant Labs Relevant Labs: Sodium 140 mmol/L (136-145) 03/01/24 06:10 Potassium 3.6 mmol/L (3.5-5.1) 03/01/24 06:10 Chloride 104 mmol/L (98-107) 03/01/24 06:10 Magnesium 1.9 mg/dL (1.8-2.4) 02/29/24 19:53 Electrolytes, C-Reactive P, ESR: Reviewed (blood cultures pending) DM Control DM Control: Glucose 172 mg/dL (74-106) H 03/01/24 06:10 Finger Stick Blood Glucose 167 1135 Finger Stick Blood Glucose 167 1135 Finger Stick Blood Glucose 170 0641 Finger Stick Blood Glucose 170 0558 Finger Stick Blood Glucose 170 0558 DM Control: Reviewed Insulin Dosing, Diabetic Medication: Has order for SS insulin Cardiac Review Cardiac Review: Troponin I Cancelled 02/29/24 22:30 Blood Pressure 145/56 0920 Blood Pressure 142/73 0717 Blood Pressure 139/84 0553 Blood Pressure 149/80 0311 BP, HR, EF%: Reviewed (HR WNL) List meds needing interventions: Has order for amlodipine 10mg daily, isosorbide mononitrate 60mg daily, losartan 100mg daily and metoprolol XL 100mg daily QTc Review QTc: Reviewed (445 from 02/29/24) IV to PO Switch IV Medications: Reviewed (hydromorphone, ondansetron and prochlorperazine) Home Meds Home Med List reviewed: Reviewed Relevent Home Meds Not ordered & why?: aspirin, docusate (PRN), Jardiance (has not filled since 04/06), Breo (substituted to Symbicort per pharmacy protocol), metformin (on hold - has order for SS insulin) Current Meds Current Medication Order Review: Intervened Comments: Changed losartan order from 25mg tablets to 50mg tablets to make administration easier Changed nitroglycerin sig from PRN to q5 min PRN x 3 per pharmacy protocol Changed Xopenex order from [facility] to PRN based on patients home med list Comments Comments/Follow Ups: NPO at midnight tonight, colonoscopy scheduled for tomorrow
[2024-03-01] MEDS: Bisacodyl 5 MG TABEC 10 MG PO ×2 (12:16→19:47)
[2024-03-01] MEDS: Ondansetron 4 MG/2 ML VIAL IVP (13:09)
[2024-03-01 14:58] VITALS: BP 122/73; PULSE 79; RESP 18; TEMP 36.2; O2SAT 95
--- NOTE | 2024-03-01 15:44 | DI.RAD_ITS ---
Exam(s) XR ABDOMEN FLAT UPRIGHT EXAM: XR ABDOMEN FLAT UPRIGHT CLINICAL HISTORY: sbo. TECHNIQUE: 2D digital imaging was performed. COMPARISON: CT CT ABDOMEN PELVIS WO from 02/29/2024 CR XR ABDOMEN FLAT PLATE from 03/01/2024 FINDINGS: Views-supine and upright: All of the intraluminal contrast has passed per rectum. There is no visibly remaining Gastrografin i n the gut. Anastomotic suture line in the lower pelvis is noted which is from a SMALL BOWEL partial resection wh ich appeared abnormal on the recent CT scan of 02/29/2024. At this time it may be prudent to repeat the CT scan (not requiring IV contrast) to determine if the fecalized bowel loop at this level has be en cleared by the Gastrografin and to ensure that there is no increasing extra luminal fluid at this level. IMPRESSION: As above with recommendations as above. DATA REPOSITORY: RADIATION DOSE DELIVERED:
[2024-03-01] MEDS: Lactated Ringers 1,000 ML 82 ML IV (16:04)
--- NOTE | 2024-03-01 16:15 | CHAPLAIN ---
Kae was in bed when I visited. She told me she's still having pain and hasn't slept well. Her has been into visit, but she said she is not in touch with her children. I will continue to visit.
[2024-03-01 19:45] VITALS: BP 145/72; PULSE 74; RESP 17; TEMP 36.4; O2SAT 96
[2024-03-01] MEDS: Topiramate 25 MG TAB PO (19:47)
[2024-03-01] MEDS: traZODone 100 MG TAB PO (19:48)
[2024-03-01] MEDS: Budesonide/Formoterol 80/4.5 6.9 GM 60 PUFF INH IH (20:20)
[2024-03-01] MEDS: Polyethylene Glycol 3350 238 GM BTL PO (21:16)
[2024-03-01] MEDS: Triamcinolone 0.1% CR 15 GM TUBE TP (21:19)
[2024-03-02] VITALS (8 sets, daily range): BP systolic 126–151; BP diastolic 44–67; PULSE 73–81; RESP 13–18; TEMP 36.4–37.1; O2SAT 93–97; BMI 32.7
[2024-03-02] MEDS: HYDROmorphone 2 MG/ML SYR 0.5 MG IVP ×4 (00:05→08:45)
[2024-03-02] MEDS: Insulin Aspart 300 UNITS/3 ML PEN SC (00:06)
[2024-03-02] MEDS: Lactated Ringers 1,000 ML 82 ML IV (04:54)
[2024-03-02] MEDS: Budesonide/Formoterol 80/4.5 6.9 GM 60 PUFF INH IH (07:54)
--- NOTE | 2024-03-02 08:00 | W.ANESPRE ---
General Info Date of Service Date Performed: 03/02/24 Height: 5 ft Weight: 76 kg Body Mass Index (BMI): 32.7 Surgical Procedure: Operation Date: 03/02/24 09:50 Proposed Procedure Side Surgeon charly Rizo MD Meds Allergies and Home Medications Allergies Allergy/AdvReac Type Severity Reaction Status Date / Time alprazolam (From Xanax) Allergy Severe hives Verified 02/29/24 19:16 codeine Allergy Severe throat Verified 02/29/24 19:16 swells shut meperidine (From Demerol) Allergy Severe Hives Verified 02/29/24 19:16 Penicillins Allergy Severe throat Verified 02/29/24 19:16 swells shut butorphanol (From Stadol) Allergy Intermediate Anaphylaxis Verified 02/29/24 19:16 Iodinated Contrast Media Allergy Intermediate rash, Verified 03/01/24 07:09 nausea, vomiting ketorolac (From Toradol) AdvReac Intermediate Nausea Verified 02/29/24 19:16 IV Contrast Allergy Severe Skin Rash Uncoded 02/29/24 19:16 Home Medication ?Medication ?Instructions ?Recorded Docusate Sodium 200 mg PO HS 04/07/22 albuterol sulfate 90 mcg/actuation 2 puff inhalation Q6H PRN 04/07/22 aerosol inhaler amlodipine 10 mg tablet 10 mg PO DAILY 04/07/22 aspirin 81 mg tablet,delayed 81 mg PO DAILY 04/07/22 release diphenhydramine HCl 25 mg capsule 25 mg PO QHS PRN 04/07/22 (Allergy (diphenhydramine)) isosorbide mononitrate 60 mg 60 mg PO DAILY 04/07/22 tablet,extended release 24 hr nitroglycerin 0.4 mg sublingual 0.4 mg sublingual Q5M PRN 04/07/22 tablet omeprazole 20 mg capsule,delayed 20 mg PO BID 04/07/22 release hydroxyzine HCl 25 mg tablet 25 mg PO TID PRN 04/21/22 metformin 1,000 mg tablet 1,000 mg PO BID 04/21/22 empagliflozin 10 mg tablet 10 mg PO DAILY 08/05/22 (Jardiance) triamcinolone acetonide 0.1 % 1 applic topical BID 08/05/22 topical cream levalbuterol tartrate 45 2 inh inhalation Q6H 07/06/23 mcg/actuation aerosol inhaler topiramate 25 mg tablet (Topamax) 25 mg PO BID 07/06/23 atorvastatin 20 mg tablet 20 mg PO DAILY 01/27/24 famotidine 40 mg tablet 40 mg PO DAILY 01/27/24 fluticasone furoate 100 1 inh inhalation DAILY 01/27/24 mcg-vilanterol 25 mcg/dose inhalation powder (Breo Ellipta) metoprolol succinate 100 mg 100 mg PO DAILY 01/27/24 tablet,extended release 24 hr trazodone 100 mg tablet 100 mg PO QHS PRN 01/27/24 losartan 100 mg tablet 100 mg PO DAILY 03/01/24 Current Visit Medications: Current Medications Generic Name Dose Route Start Last Admin Trade Name Freq PRN Reason Stop Dose Admin Albuterol Sulfate 2 puff 02/29/24 23:48 Albuterol Hfa 8 Gm 60 Puff Inh IH Q6H PRN PRN Amlodipine Besylate 10 mg 03/01/24 08:30 03/01/24 09:14 Amlodipine 10 Mg Tab PO 10 mg DAILY [facility] Administration Atorvastatin Calcium 20 mg 03/01/24 08:30 03/01/24 09:15 Atorvastatin 20 Mg Tab PO 20 mg DAILY [facility] Administration Bisacodyl 10 mg 03/01/24 12:00 03/01/24 12:16 Bisacodyl 5 Mg Tabec PO 10 mg DAILY [facility] Administration Bisacodyl 10 mg 03/01/24 17:00 03/01/24 19:47 Bisacodyl 5 Mg Tabec PO 10 mg DIRECTED [facility] Administration Budesonide/Formoterol Fumarate 2 puff 03/01/24 08:30 03/02/24 07:54 Budesonide/Formoterol 80/4.5 6.9 Gm 60 Puff Inh IH 2 puffs BID [facility] Administration Device 1 each 02/29/24 23:48 Inhaler, Assist Device DIRECTED [facility] Enoxaparin Sodium 40 mg 03/01/24 08:00 03/01/24 09:13 Enoxaparin 40 Mg/0.4 Ml Syr SC 40 mg Q24H [facility] Administration Famotidine 40 mg 03/01/24 08:30 03/01/24 09:15 Famotidine 20 Mg Tab PO 40 mg DAILY [facility] Administration Hydromorphone HCl 0.5 mg 03/01/24 15:11 03/02/24 06:41 Hydromorphone 2 Mg/Ml Syr IVP 0.5 mg Q2H PRN PRN Administration Hydroxyzine HCl 25 mg 02/29/24 23:48 Hydroxyzine Hcl 25 Mg Tab PO TID PRN PRN Ringer's Solution 1,000 mls @ 82 mls/hr 03/01/24 15:15 03/02/24 04:54 IV 82 mls/hr INFUSION [facility] Administration IV Miscellaneous Supplies 1 each 02/29/24 23:48 Iv Access IV DIRECTED [facility] Insulin Aspart 0 units 03/01/24 00:00 03/02/24 05:51 Insulin Aspart 300 Units/3 Ml Pen SC Not Given Q6H [facility] Protocol Isosorbide Mononitrate 60 mg 03/01/24 08:30 03/01/24 09:15 Isosorbide Mononitrate 30 Mg Tabcr PO 60 mg DAILY [facility] Administration Levalbuterol 2 puff 03/01/24 11:28 Levalbuterol Hfa 15 Gm Inh IH Q6H PRN PRN Losartan Potassium 100 mg 03/02/24 08:30 Losartan 50 Mg Tab PO DAILY [facility] Metoprolol Succinate 100 mg 03/01/24 08:30 03/01/24 09:16 Metoprolol Cr 100 Mg Tabcr PO 100 mg DAILY [facility] Administration Nitroglycerin 0.4 mg 03/01/24 11:22 Nitroglycerin 0.4 Mg Tab SL Q5 MIN PRN X3 PRN Omeprazole 20 mg 03/01/24 08:30 03/01/24 19:47 Omeprazole 20 Mg Capcr PO 20 mg BID [facility] Administration Ondansetron HCl 4 mg 02/29/24 23:48 03/01/24 13:09 Ondansetron 4 Mg/2 Ml Vial IVP 4 mg Q4H PRN PRN Administration Prochlorperazine Edisylate 5 mg 02/29/24 22:26 Prochlorperazine 10 Mg/2 Ml Vial IVP Q4H PRN PRN Simethicone 80 mg 02/29/24 23:48 Simethicone 80 Mg Chew PO Q4H PRN PRN Sodium Chloride 0 ml 02/29/24 23:48 03/01/24 18:12 Normal Saline Flush 10 Ml Syr IVP 10 ml PRN PRN Administration Sodium Chloride 0 ml 03/01/24 08:30 03/01/24 21:20 Normal Saline Flush 10 Ml Syr IVP Not Given BID [facility] Sodium Chloride 0 ml 02/29/24 23:48 Normal Saline 10 Ml Vial IJ DIRECTED PRN Topiramate 25 mg 03/01/24 08:30 03/01/24 19:47 Topiramate 25 Mg Tab PO 25 mg BID [facility] Administration Trazodone HCl 100 mg 03/01/24 20:00 03/01/24 19:48 Trazodone 100 Mg Tab PO 100 mg HS PRN PRN Administration Triamcinolone Acetonide 0 gm 03/01/24 08:30 03/01/24 21:19 Triamcinolone 0.1% Cr 15 Gm Tube TP 1 applic BID [facility] Administration PFSH Active Problems Active Problems: Problem Status Onset Code SBO (small bowel obstruction) Acute K56.609 Abdominal discomfort Acute R10.9 Chronic constipation Acute K59.09 Arthritis Acute M19.90 Back pain Acute M54.9 Eye disorder Acute H57.9 GERD (gastroesophageal reflux disease) Chronic K21.9 Obesity Chronic E66.9 Claustrophobia Acute F40.240 Hyperlipidemia Acute E78.5 Hypertension Chronic I10 Osteoporosis Chronic M81.0 Headache Acute R51.9 Asthma with COPD (chronic obstructive pulmonary disease) Acute J44.9 Parkinsons disease Chronic G20 CAD (coronary artery disease) Chronic I25.10 Vitamin D deficiency Acute E55.9 Nausea and vomiting Acute R11.2 Left upper quadrant abdominal pain Acute R10.12 Diarrhea Acute R19.7 Screening for colon cancer Acute Z12.11 Corns and callosities Acute L84 Diabetes mellitus Chronic E11.9 Cubital tunnel syndrome on left Acute G56.22 Cubital tunnel syndrome on right Acute G56.21 Trigger finger, left middle finger Acute M65.332 Trigger finger, right middle finger Acute M65.331 Left carpal tunnel syndrome Acute G56.02 Right carpal tunnel syndrome Acute G56.01 Medical History Medical History Osteoarthritis of left knee mild Small bowel obstruction Diverticulitis PTSD (post-traumatic stress disorder) Light headedness Dermatitis Anxiety Petechial rash upper and lower extremities, chronic. Started in 2018. COPD (chronic obstructive pulmonary disease) Surgical History Surgical History History of colostomy reversal Tobacco Smoking/Tobacco Use Status: Former Tobacco Use Alcohol Alcohol Intake: never Substance Use Substance use: Never Vital Signs and Lab Results Vital Signs Most Recent Vital Signs in EMR: Most Recent Vital Signs Temp Pulse Resp BP Pulse Ox 36.4 C L 76 15 151/67 H 94 03/02/24 07:34 03/02/24 07:34 03/02/24 07:34 03/02/24 07:34 03/02/24 07:34 Point of Care Results Point of Care Results: Finger Stick Blood Glucose 143 03/02/24 05:47 Lab Results 03/01/24 06:10 03/01/24 06:10 Blood Type / Crossmatch: No Data to Display Complete Blood Count: White Blood Count 5.19 10^3/uL (4.4-10.8) 03/01/24 06:10 Red Blood Count 4.01 10^6/uL (3.93-5.22) 03/01/24 06:10 Hemoglobin 12.2 g/dL (11.2-15.7) 03/01/24 06:10 Hematocrit 37.0 % (36.0-46.0) 03/01/24 06:10 Platelet Count 204 10^3/uL (130-400) 03/01/24 06:10 Venous Blood Lactate 1.7 mmol/L (0.6-1.4) H 02/29/24 19:53 Complete Metabolic Panel: Sodium 140 mmol/L (136-145) 03/01/24 06:10 Potassium 3.6 mmol/L (3.5-5.1) 03/01/24 06:10 Chloride 104 mmol/L (98-107) 03/01/24 06:10 Carbon Dioxide 27.3 mmol/L (21.0-32.0) 03/01/24 06:10 BUN 14 mg/dL (7-18) 03/01/24 06:10 Creatinine 0.9 mg/dL (0.55-1.02) 03/01/24 06:10 Est GFR (CKD-EPI 2020) 67.92 (mL/min/1.73m2) 03/01/24 06:10 Magnesium 1.9 mg/dL (1.8-2.4) 02/29/24 19:53 Calcium 8.4 mg/dL (8.5-10.1) L 03/01/24 06:10 Albumin 3.8 g/dL (3.4-5.0) 02/29/24 19:53 Glucose 172 mg/dL (74-106) H 03/01/24 06:10 Liver Function Panel: Alanine Aminotransferase (ALT/SGPT) 36 U/L (14-59) 02/29/24 19:53 Aspartate Amino Transf (AST/SGOT) 22 U/L (15-37) 02/29/24 19:53 Coagulation Panel: No Data to Display Cardiac Panel: No Data to Display Arterial Blood Gas: No Data to Display Venous Blood Gas: No Data to Display Pancreas Panel: Lipase 30 U/L (16-77) 02/29/24 19:53 Thyroid Panel: No Data to Display Infectious Disease: No Data to Display Blood Cultures: No Data to Display Toxicology Panel: No Data to Display Imaging and Studies Imaging and Studies Study information below may be from another EMR and interpreted by another provider. Please see original notes in EMR for more complete details. EKG Summary: 02/29/24 Conclusion Sinus rhythm 90 normal axis no stemi Anesthesia Assessment and Plan Anesthesia History Personal History: No History of Anesthesia Complications Family History: No Family History of Anesthesia Complications Exercise Tolerance Exercise Tolerance: Metabolic Equivalents<4 Pertinent Negatives Pertinent Negatives: No Symptoms of GERD, No Major Cardiovascular Symptoms or Complaints and No Major Pulmonary Symptoms or Complaints Cardiac & Pulmonary Exam Cardiac Exam: Normal S1/S2 Heart Sounds Pulmonary Exam: Clear Bilateral Breath Sounds Implantable Cardiac Device Does patient have a Pacemaker or an ICD?: No Airway Exam Known Difficult Airway: No Mallampati Class: 2 Mouth Opening: Normal (> 3cm) Thyromental Distance: Greater than 3 cm Neck Range of Motion: Full ROM Neck Circumference: Normal Teeth Condition: Removable Dentures/Plates Upper, Removable Dentures/Plates Lower and Edentulous ASA Classification ASA Score: ASA 3 Emergency Case?: No NPO Status NPO Status: NPO Clears >2 hours, Solids >8 hours Anesthesia Plan Resuscitation Status: Full Code Anesthesia Technique: General Anesthesia Airway Planned: Natural Airway Monitors Used: Standard Monitors Preoperative Comments:: Deep Brain Stimulator turned off by patient.
[2024-03-02] MEDS: Omeprazole 20 MG CAPCR PO (08:45)
[2024-03-02] MEDS: Metoprolol CR 100 MG TABCR PO (08:45)
[2024-03-02] MEDS: amLODIPine 10 MG TAB PO (08:45)
[2024-03-02] MEDS: Normal Saline Flush 10 ML SYR IVP ×2 (08:46→12:13)
--- NOTE | 2024-03-02 09:10 | PDOC.CMPRO ---
Date of service: 03/02/24 Time of Service: 09:10 Care Management Progress Note Discharge Potential Discharge Needs: Surgical F/U Appt Anticipated Barriers to Discharge: None Identified Patient/Family Education Needs: Review discharge instructions, discuss Ask Me Three Transportation: Private vehicle Plan: Anticipate Kae will be discharged home with no new services when medically stable. She will follow up with her surgeon, PCP and plan of care and transport with family. CM will follow and support discharge needs. SDOH(Care Management) Screening Will the Patient Participate in the Screening?: Yes Do you worry about having a steady place to live?: no Problems where you live: no known problems In the past 12 months, have you had to go without electric, gas, oil or water in your home?: no Have you or anyone in your house had to go without enough food to eat?: no Has lack of transportation kept you from medical appointments or from doing things needed for daily living?: no Has anyone in your support network made you feel unsafe for any reason?: no
[2024-03-02] MEDS: Lactated Ringers 1,000 ML 30 ML IV (11:04)
--- NOTE | 2024-03-02 11:18 | BOWEL_PTH ---
PATIENT: Kae Forrest LOC: [id number]#:[id number] AGE/SX: 73/F ROOM: RE02/29/[address]: Fernando Rizo MD : [id number] BED: A DIS: 03/02/2024 SPEC #: [id number] RECD: 03/02/24 12:58 STATUS: RADHA REQ #: [id number] FLOR: 03/02/24 11:[address]: Fernando Rizo DEPT: Surgical Specimen RECD BY: Marissa Mcgowan ENTERED: 03/02/24 13:00 SP TYPE: Bowel OTHR DR: Nikolas Matos Tissues: 1 - BIOPSY BOWEL 2 - BIOPSY BOWEL Procedures: GROSS AND MICRO LEVEL 4 Comments: [id number]
--- NOTE | 2024-03-02 11:26 | W.COLOREPORT ---
Date of service: 03/02/24 Time of Service: 11: Colonoscopy Report Date of procedure: 03/02/24 Pre-op diagnosis general: Bowel obstruction Post-op diagnosis procedure note: other (Colon stricture at 20 cm) Procedure: Flexible sigmoidoscopy Surgeon: Fernando Rizo Anesthesia Type: General:No Airway Estimated blood loss (mL): 10 Pathology: other (Anastomotic biopsies at 20 cm, rectal biopsies) Complications: None Disposition: PACU Indications: Kae is a 73-year-old woman who was admitted to the hospital with a bowel obstruction. She underwent a Gastrografin challenge that demonstrated passage of contrast into the rectum. 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 Perineum and skin were normal, as was the anal verge.? There was no evidence of external hemorrhoids.? Next, I performed a digital rectal exam.? I did not appreciate any abnormal findings.? Next, I advanced a colonoscope into the rectal vault.? I performed retroflexion.? This appeared normal.? There was a little bit of proctitis, with no other signs of acute inflammatory bowel disease such as Crohn's disease or ulcerative colitis. Cold forceps were used to biopsy 3 small areas of inflammation. I continued advancing the colonoscope to about 18 cm beyond the anal verge. At this point, there was extreme narrowing of the lumen, and am not able to pass a pediatric scope beyond it. This appears to be her colorectal anastomosis, although I am not able to appreciate a discrete staple line here. Tissue was a little bit friable. I did perform cold forceps biopsies here as well, without any significant bleeding. Given her history, this seems most consistent as a source of her abdominal complaints. I suspect this could be dilated, but I will wait to see the pathology results before committing to any interventions. At that point, the camera was withdrawn and the patient was allowed awaken from the anesthetic for transfer to the recovery unit.
--- NOTE | 2024-03-02 11:37 | DSE_ITS ---
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 Biopsies are sent. Follow-up in office as an outpatient for possible dilation revision Discharge Plan Disposition Patient Disposition: Home Condition: Good Discharge Details Reason For Visit: small bowel obstruction Admit Date/Time: 02/29/24 22:24 Admit Provider: Fernando Rizo Attending Provider: Fernando Rizo Primary Care Provider: Nikolas Matos Hospital Course Hospital Course: This is a 73-year-old woman who comes to the emergency department with abdominal pain and bloating that seems consistent with a bowel obstruction. She underwent a Gastrografin challenge that showed passage of contrast down into the rectum. She was prepped for a colonoscopy, and that confirmed the presence of an anastomotic stricture around 20 cm from the anus. Biopsies were performed, will follow-up as an outpatient for definitive treatment. Home Meds and New Rx's Prescriptions: Continued albuterol sulfate 90 mcg/actuation HFA aerosol inhaler 2 puff inhalation Q6H PRN amlodipine 10 mg tablet 10 mg PO DAILY diphenhydramine HCl [Allergy (diphenhydramine)] 25 mg capsule 25 mg PO QHS PRN isosorbide mononitrate 60 mg tablet extended release 24 hr 60 mg PO DAILY nitroglycerin 0.4 mg tablet, sublingual 0.4 mg sublingual Q5M PRN Rx Instructions: do not exceed 3 doses per episode omeprazole 20 mg capsule,delayed release(DR/EC) 20 mg PO BID aspirin 81 mg tablet,delayed release (DR/EC) 81 mg PO DAILY Docusate Sodium 200 mg PO HS metformin 1,000 mg tablet 1,000 mg PO BID hydroxyzine HCl 25 mg tablet 25 mg PO TID PRN Jardiance 10 mg tablet 10 mg PO DAILY triamcinolone acetonide 0.1 % cream 1 applic topical BID topiramate [Topamax] 25 mg tablet 25 mg PO BID levalbuterol tartrate 45 mcg/actuation HFA aerosol inhaler 2 inh inhalation Q6H atorvastatin 20 mg tablet 20 mg PO DAILY fluticasone furoate-vilanterol [Breo Ellipta] 100-25 mcg/dose blister with device 1 inh inhalation DAILY famotidine 40 mg tablet 40 mg PO DAILY metoprolol succinate 100 mg tablet extended release 24 hr 100 mg PO DAILY trazodone 100 mg tablet 100 mg PO QHS PRN losartan 100 mg tablet 100 mg PO DAILY Patient Comments: TAKE ONE TABLET BY MOUTH EVERY DAY Discharge Instructions Additional Instructions: Kae, it was a pleasure meeting you in the hospital, and I am sorry that you are struggling with complications from your previous diverticulitis. The colonoscopy today shows a tightening in your colon, around 20 cm from the anus. I suspect this is from the area that they removed and reconnected. It is probably the area that you told me needed to be stretched before. Before committing to any interventions, I want to see what the results are from some biopsies that I performed today. I went ahead and made an office follow-up visit with me on March 15 at 1:45 PM. We can talk about different options to treat this at that point. In the meantime, I had like you to try to keep your diet as thin as possible to help things passing through this area. In addition to the bowel regimen that you already use, I would focus on a diet that is soft and easy to digest. For now, I would stick with a level 3 dysphagia diet. This includes things such as the following: Well-moistened breads. You may need to add jelly, butter, or other soft spread.All well-moistened cereals. Moist desserts that don?t contain nuts, seeds, or dried fruit. All canned and cooked fruits, soft and peeled fresh fruit. Tender, thin-sliced meats and fish. Any kind of eggs. Yogurt. Rice, noodles, and most cooked potatoes. Most soups. Cottage cheese, tofu, and well- cooked beans. All cooked, tender vegetables. Most non-chewy candies Foods to avoid: Dry bread, crackers, and tough breads. Very coarse cereals or dry cereals. Cookies or cakes that are very dry or that contain nuts, dried fruit, seeds, or other hard pieces. Fresh fruit that is hard to chew. Dry or tough meats. [place] peanut butter. Potato skins, potato chips, corn, or popcorn. Most raw vegetables. Nuts, seeds, or coconut. Very sticky foods, like chewy candies. Ultimately, I think you will have 3 options to take care of this. The first would be another attempt at stretching this out, which I think I could achieve with the colonoscope similar to what we did today. The second would be another operation to revise this connection. I suspect that would be the most complicated, and in my heart, I think I would probably recommend against that. Finally, a new colostomy to divert the fecal stream above the level of this tightening would also work. Since we talked about that a little bit beforehand, that might also be a reasonable option. Obviously, these are complicated choices, and I want to have a little bit of time to think and talk about them. If you have any questions or issues in the meantime, please do not hesitate to call. Activity:: Activity as Tolerated Equipment/Supplies:: No Equipment Needed Diet:: Level 3 dysphagia diet DS: Summary Time Spent with Patient providing and/or coordinating discharge services: Greater than 30 minutes Status at Discharge Functional status at discharge: independent ambulation Overall status at discharge: patient is progressing back to baseline Mental Status: mental status grossly normal Speech and Movement: speech and movement normal Mood: congruent mood Affect: normal affect Quality:SDOH Health Related Social Needs: No Data to Display Exam GI Other: Abdomen is soft and nondistended. She is not tender. Psych Mental Status: mental status grossly normal Speech and Movement: speech and movement normal Mood: congruent mood Affect: normal affect DS: Data Vitals/I&O Vitals and I&O: Vital Signs Temperature 98.8 F 03/02/24 11:36 Temperature Source Skin 03/02/24 07:34 Pulse 76 03/02/24 11:35 Pulse Rhythm Regular 02/29/24 23:33 Pulse 77 03/02/24 11:35 Respiratory Rate 13 03/02/24 11:35 Respiratory Effort Normal, Non-Labored 02/29/24 23:33 Respiratory Depth Normal 02/29/24 23:33 Respiratory Pattern Irregular 02/29/24 23:33 Blood Pressure 132/45 L 03/02/24 11:35 Blood Pressure Mean 73 03/02/24 11:35 Blood Pressure Position Sitting 02/29/24 20:23 Pulse Oximetry 95 03/02/24 11:36 Respiratory End-tidal CO2 44 03/02/24 11:35 Oxygen Delivery Method Room Air 03/02/24 11:36 Oxygen Flow Rate 3 03/02/24 11:26 Pain Level 0 03/02/24 11:36 Intake & Output 03/01/24 03/01/24 03/02/24 11:59 23:59 11:59 Intake Total 30 / 1108.75 1078.75 / 1108.75 1200 / 1200 Output Total 1450 / 2150 700 / 2150 Balance -1420 / -1041.25 378.75 / -1041.25 1200 / 1200 Weight 167 lb 8.821 oz Intake: IV 30 / 1108.75 1078.75 / 1108.75 1200 / 1200 Oral 0 / 0 0 / 0 Output: Urine 1150 / 1750 600 / 1750 Stool 300 / 400 100 / 400 Other: Urine Color Pale Yellow Yellow Urine Appearance Clear Clear Urine Odor None None Comment voided in toilet Stool Size Small Moderate Large Stool Characteristics Liquid Liquid Liquid Brown Emesis Description None Voiding Methods Toilet Toilet Data Completed and Pending Labs on day of discharge: Preliminary micro results at discharge 02/29/24 19:53 Blood Culture - Preliminary Blood NO GROWTH 24 HOURS 02/29/24 19:53 Blood Culture - Preliminary Blood NO GROWTH 24 HOURS PFSH All Active Problems SBO (small bowel obstruction) (Acute) Abdominal discomfort (Acute) Chronic constipation (Acute) Arthritis (Acute) Back pain (Acute) Eye disorder (Acute) GERD (gastroesophageal reflux disease) (Chronic) Obesity (Chronic) Claustrophobia (Acute) Hyperlipidemia (Acute) Hypertension (Chronic) Osteoporosis (Chronic) Headache (Acute) Asthma with COPD (chronic obstructive pulmonary disease) (Acute) Parkinsons disease (Chronic) 02/03/23 pt has a DBS implanted for this RH CAD (coronary artery disease) (Chronic) Vitamin D deficiency (Acute) Nausea and vomiting (Acute) Left upper quadrant abdominal pain (Acute) Diarrhea (Acute) Screening for colon cancer (Acute) Corns and callosities (Acute) Diabetes mellitus (Chronic) Cubital tunnel syndrome on left (Acute) Cubital tunnel syndrome on right (Acute) Trigger finger, left middle finger (Acute) Trigger finger, right middle finger (Acute) Left carpal tunnel syndrome (Acute) Right carpal tunnel syndrome (Acute) Medical History Osteoarthritis of left knee mild Small bowel obstruction Diverticulitis PTSD (post-traumatic stress disorder) Light headedness Dermatitis Anxiety Petechial rash upper and lower extremities, chronic. Started in 2018. COPD (chronic obstructive pulmonary disease) Surgical History History of colostomy reversal Social History Smoking/Tobacco Use Status: Former Tobacco Use Quit Date: 06/15/11 Smoking risk assessment performed?: Yes Alcohol Intake: never Drug use: Never Housing: house Do you feel safe at home: Yes Do you feel safe in your relationship?: Yes Time Spent with Patient Time Spent with Patient: <45 minutes Time was spent: preparing to see the patient(eg.review tests), indepentently interpreting results, counseling the patient and care coordination
--- NOTE | 2024-03-02 11:52 | W.PM.PROGNOT ---
Date of Service Date of service: 03/02/24 Time of Service: 11:52 Assessment and Plan Assessment and plan (1) Abdominal discomfort: Status: Acute Assessment and plan: We can proceed with diagnostic colonoscopy today, and hopefully discharge home later Subjective Subjective Interval history since last seen: Kae is feeling much better than when she came into the hospital. She tolerated the bowel prep without any issues. Exam GI Other: Abdomen soft and nondistended. Objective Last Vital Signs Temp 98.8 F 03/02/24 11:36 Pulse 76 03/02/24 11:35 Resp 13 03/02/24 11:35 BP 132/45 L 03/02/24 11:35 Pulse Ox 95 03/02/24 11:36 Time Spent with Patient Time Spent with Patient: 25-34 minutes Time was spent: preparing to see the patient(eg.review tests), indepentently interpreting results and counseling the patient
[2024-03-02] MEDS: Isosorbide Mononitrate 30 MG TABCR 60 MG PO (12:09)
[2024-03-02] MEDS: Famotidine 20 MG TAB 40 MG PO (12:10)
[2024-03-02] MEDS: Topiramate 25 MG TAB PO (12:10)
[2024-03-02] MEDS: Atorvastatin 20 MG TAB PO (12:11)
[2024-03-02] MEDS: Losartan 50 MG TAB 100 MG PO (12:12)
--- NOTE | 2024-03-02 12:33 | W.ANESPOSTOP ---
Postoperative Evaluation Date, Time and Location Date Performed: 03/02/24 Time Performed: 11:33 Patient Location: PACU Vital Signs Most Recent Imported Vital Signs: Most Recent Vital Signs Temp Pulse Resp BP Pulse Ox 36.9 C 73 18 146/63 H 93 03/02/24 12:08 03/02/24 12:08 03/02/24 12:08 03/02/24 12:08 03/02/24 12:08 Pain Score Most Recent Pain Score: Most Recent Pain Score Pain Level 0 03/02/24 11:36 Assessment Mental Status: Awake (Alert & Oriented to Patient Baseline) Airway and Respiratory Function: Patent airway with normal (patient baseline) respiratory exam Cardiovascular Function: Hemodynamically Stable Hydration Status: Adequately Hydrated Nausea & Vomiting: No Nausea or Vomiting Pain: Pt. Denies Any Pain Peripheral Nerve Block: Patient did not receive a nerve block
--- NOTE | 2024-03-02 18:39 | CMDISCH_ITS ---
Date of service: 03/02/24 Time of Service: 18:39 LACE Index Scoring Tool Questions: Length of Stay (in days): 2 Was the patient admitted via the E.D.?: Yes Comorbidities: Diabetes w/o Complication and Chronic Pulmonary Disease E.D. Visits: 2 Answers: Total Score: 10 Risk of Readmission: High Risk Care Management Discharge Plan Reason for Hospitalization: SBO Discharge Plan: Kae will be discharged home with no new services. She will follow up with her surgeon, PCP and plan of care and transport with family. Patient/Family Education Needs: Review of discharge instructions, limitations, follow up, plan and discuss [employer] [facility] Health Related Social Needs: No Data to Display
== END 2024-03-02 14:00 | disposition home or self-care (01) ==
LOC: ER 22:38 → MS 23:32
PROVIDERS: Admitting Provider Surgery; Emergency Provider Physician Assistant; PCP Physician Assistant; Visit Provider Surgery
PROC: 0DJD8ZZ Inspection of Lower Intestinal Tract, Via Natural or Artificial Opening Endoscopic (ICD-10-PCS; CPT 45378; principal; 2024-03-02 09:45)
DX: K91.31 Postprocedural partial intestinal obstruction (principal); K59.09 Other constipation; K21.9 Gastro-esophageal reflux disease without esophagitis; E66.9 Obesity, unspecified; Z68.32 Body mass index [BMI] 32.0-32.9, adult; I10 Essential (primary) hypertension; E78.5 Hyperlipidemia, unspecified; M81.0 Age-related osteoporosis without current pathological fracture; J44.9 Chronic obstructive pulmonary disease, unspecified; G20.C Parkinsonism, unspecified; E11.9 Type 2 diabetes mellitus without complications; E55.9 Vitamin D deficiency, unspecified; Y83.2 Surgical operation with anastomosis, bypass or graft as the cause of abnormal reaction of the patient, or of later complication, without mention of misadventure at the time of the procedure; K62.89 Other specified diseases of anus and rectum
CPT/HCPCS: 45331; 36415; 80048; 80053; 83690; 87040; 88305; 90656; 93005; 94640; 96361; 96372; 96374; 96375; 96376; 99223; 99239; 99285; J1650; 74018; 74019; 74176; 81003; 83605; 83735; 84484; 85025; 93010; 94664; G0378; J0780; J1170; J1815; J2001; J2405; J2704; J3490

== ENCOUNTER 2024-05-02 17:41 | Inpatient (IN) | payer BC, MEDICARE, SELFPAY ==
[2024-05-02 17:41] VITALS: BP 163/92; PULSE 111; RESP 18; TEMP 36.7; O2SAT 95
--- NOTE | 2024-05-02 17:53 | ED.GENADUL_ITS ---
Discharge Plan Disposition Patient Disposition: Admit to [facility] Condition: Stable Discharge Details Chief Complaint: Abd Prob Clinical Impression: Small bowel obstruction Primary Care Provider: Nikolas Matos ED Provider: Bernardo Kearney Home Meds and New Rx's Prescriptions: No Action albuterol sulfate 90 mcg/actuation HFA aerosol inhaler 2 puff inhalation Q6H PRN amlodipine 10 mg tablet 10 mg PO DAILY diphenhydramine HCl [Allergy (diphenhydramine)] 25 mg capsule 25 mg PO QHS PRN isosorbide mononitrate 60 mg tablet extended release 24 hr 60 mg PO DAILY nitroglycerin 0.4 mg tablet, sublingual 0.4 mg sublingual Q5M PRN Rx Instructions: do not exceed 3 doses per episode omeprazole 20 mg capsule,delayed release(DR/EC) 20 mg PO BID aspirin 81 mg tablet,delayed release (DR/EC) 81 mg PO DAILY Docusate Sodium 200 mg PO HS metformin 1,000 mg tablet 1,000 mg PO BID hydroxyzine HCl 25 mg tablet 25 mg PO TID PRN Jardiance 10 mg tablet 10 mg PO DAILY triamcinolone acetonide 0.1 % cream 1 applic topical BID topiramate [Topamax] 25 mg tablet 25 mg PO BID levalbuterol tartrate 45 mcg/actuation HFA aerosol inhaler 2 inh inhalation Q6H atorvastatin 20 mg tablet 20 mg PO DAILY fluticasone furoate-vilanterol [Breo Ellipta] 100-25 mcg/dose blister with device 1 inh inhalation DAILY famotidine 40 mg tablet 40 mg PO DAILY metoprolol succinate 100 mg tablet extended release 24 hr 100 mg PO DAILY trazodone 100 mg tablet 100 mg PO QHS PRN losartan 100 mg tablet 100 mg PO DAILY Patient Comments: TAKE ONE TABLET BY MOUTH EVERY DAY Ozempic 0.25 mg or 0.5 mg (2 mg/3 mL) pen injector 0.5 mg SUBCUT .weekly Patient Comments: INJECT 0.25 MG SUBCUTANEOUSLY ONCE WEEKLY FOR FIRST FOUR WEEKS, THEN INCREASE TO 0.5 MG ONCE WEEKLY HPI General Date/Time Provider Initiated Documentation: 05/02/24 17:53 . HPI Narrative: 73 year-old female presents to ED today by POV/ambulating with a chief complaint of severe lower abdominal pain with onset suddenly today- recent SBO seen by Dr. Rizo here in Feb. Quality described as feels just like her prior SBO, denies passing of any flatus, and is having active persistent vomiting here in the ED, no radiation to fever, chills, diarrhea, endorses constipation. Severity is described as 03/24. Palliating factors include nothing specific attempted. Provoking factors include nothing specific. Patient not anticoagulated. Related Data Home Medications ?Medication ?Instructions ?Recorded ?Confirmed Docusate Sodium 200 mg PO HS 04/07/22 05/02/24 albuterol sulfate 90 mcg/actuation 2 puff inhalation Q6H PRN 04/07/22 05/02/24 aerosol inhaler amlodipine 10 mg tablet 10 mg PO DAILY 04/07/22 05/02/24 aspirin 81 mg tablet,delayed 81 mg PO DAILY 04/07/22 05/02/24 release diphenhydramine HCl 25 mg capsule 25 mg PO QHS PRN 04/07/22 05/02/24 (Allergy (diphenhydramine)) isosorbide mononitrate 60 mg 60 mg PO DAILY 04/07/22 05/02/24 tablet,extended release 24 hr nitroglycerin 0.4 mg sublingual 0.4 mg sublingual Q5M PRN 04/07/22 05/02/24 tablet omeprazole 20 mg capsule,delayed 20 mg PO BID 04/07/22 05/02/24 release hydroxyzine HCl 25 mg tablet 25 mg PO TID PRN 04/21/22 05/02/24 metformin 1,000 mg tablet 1,000 mg PO BID 04/21/22 05/02/24 empagliflozin 10 mg tablet 10 mg PO DAILY 08/05/22 05/02/24 (Jardiance) triamcinolone acetonide 0.1 % 1 applic topical BID 08/05/22 05/02/24 topical cream levalbuterol tartrate 45 2 inh inhalation Q6H 07/06/23 05/02/24 mcg/actuation aerosol inhaler topiramate 25 mg tablet (Topamax) 25 mg PO BID 07/06/23 05/02/24 atorvastatin 20 mg tablet 20 mg PO DAILY 01/27/24 05/02/24 famotidine 40 mg tablet 40 mg PO DAILY 01/27/24 05/02/24 fluticasone furoate 100 1 inh inhalation DAILY 01/27/24 05/02/24 mcg-vilanterol 25 mcg/dose inhalation powder (Breo Ellipta) metoprolol succinate 100 mg 100 mg PO DAILY 01/27/24 05/02/24 tablet,extended release 24 hr trazodone 100 mg tablet 100 mg PO QHS PRN 01/27/24 05/02/24 losartan 100 mg tablet 100 mg PO DAILY 03/01/24 05/02/24 semaglutide 0.25 mg or 0.5 mg (2 0.5 mg subcut .weekly 05/02/24 05/02/24 mg/3 mL) subcutaneous pen injector (Ozempic) Allergies Allergy/AdvReac Type Severity Reaction Status Date / Time alprazolam (From Xanax) Allergy Severe hives Verified 05/02/24 17:45 codeine Allergy Severe throat Verified 05/02/24 17:45 swells shut meperidine (From Demerol) Allergy Severe Hives Verified 05/02/24 17:45 Penicillins Allergy Severe throat Verified 05/02/24 17:45 swells shut butorphanol (From Stadol) Allergy Intermediate Anaphylaxis Verified 05/02/24 17:45 Iodinated Contrast Media Allergy Intermediate rash, Verified 05/02/24 17:45 nausea, vomiting ketorolac (From Toradol) AdvReac Intermediate Nausea Verified 05/02/24 17:45 IV Contrast Allergy Severe Skin Rash Uncoded 05/02/24 17:45 General Stated Complaint: Abd Prob ABRAHAM: 2 Review of Systems All systems reviewed & are unremarkable except as noted in HPI and below Exam Narrative Exam Narrative: GENERAL APPEARANCE: Well-nourished, non-toxic, awake and alert, atraumatic, no acute distress. SKIN: Warm, pink, dry, intact, without rashes/lesions/ulcerations. HEAD: Normocephalic, atraumatic, normal hair distribution for gender/age. EYES: Normal conjunctiva, no exudates on lids/lashes. ENT: Nares patent, no circumoral cyanosis, no facial swelling NECK: Supple, trachea midline, painless cervical ROM. LUNGS/CHEST: Lungs CTA bilaterally- no rhonchi/rales/wheezes diffusely, non- labored respirations, normal A/P diameter, symmetrical expansion, no chest wall deformity HEART (CV/PV): Regular rate and rhythm without murmur, no peripheral edema, no JVD. ABDOMEN: Soft, non-distended, no guarding, severe lower abdominal tenderness, +Rovsing's, negative De La Garza's. MSK: Normal ROM, no swelling/deformity to bilateral UEs or LEs, moving all extremities without weakness, no cyanosis, spine midline without tenderness, normal curvature. NEURO: Mental Status AAOx4 - alert to person, place, time, events No facial droop, no forehead involvement. Motor: No focal weakness - strength 5/5 in bilateral UEs and LEs, proximal and distal, symmetric. Sensory: sensation intact to light touch globally. Gait normal: patient ambulated without ataxia into ED room. PSYCH: euthymic, cooperative, pleasant, appropriate speech Course Vital Signs Vital signs: Vital Signs Temperature 36.7 C 05/02/24 17:41 Pulse 111 H 05/02/24 17:41 Respiratory Rate 18 05/02/24 17:41 Blood Pressure 163/92 H 05/02/24 17:41 Pulse Oximetry 95 05/02/24 17:41 Temperature 36.7 C 05/02/24 17:41 Temperature Source Oral 05/02/24 17:41 Pulse 111 H 05/02/24 17:41 Respiratory Rate 18 05/02/24 17:41 Blood Pressure 163/92 H 05/02/24 17:41 Blood Pressure Position Sitting 05/02/24 17:41 Pulse Oximetry 95 05/02/24 17:41 Oxygen Delivery Method Room Air 05/02/24 17:41 Oxygen Flow Rate 0 05/02/24 17:41 Pain Level 10 05/02/24 17:41 Medical Decision Making This dictation utilizes [id number] dictation software and may contain unedited grammatical errors. 73 year-old female presents to ED today by POV/ambulating with a chief complaint of severe lower abdominal pain with onset suddenly today- recent SBO seen by Dr. Rizo here in Feb. Quality described as feels just like her prior SBO, denies passing of any flatus, and is having active persistent vomiting here in the ED, no radiation to fever, chills, diarrhea, endorses constipation. Severity is described as 10/10. Palliating factors include nothing specific attempted. Pro voking factors include nothing specific. Patients' medical history: Diverticulitis, small bowel obstruction, known bowel stricture from prior colon resection, COPD, history of colostomy reversal, chronic constipation, hypertension, hyperlipidemia, Parkinson's, asthma, CAD, diabetes mellitus. Family and social history: Noncontributory. Pertinent exam findings / vital signs include severe lower abdominal tenderness with Rovsing's, no De La Garza's benign cardiopulmonary status, nontoxic, active vomiting. Differential / pathologies of concern include small bowel obstruction, diverticulitis, gastroenteritis. Diagnostic studies of: -CBC, CMP, lactate, lipase, magnesium, UA, CT ABD/pelvis without contrast-due to allergy. -CBC shows no leukocytosis -CMP is unremarkable -Lactate is 1.7 -Magnesium negative -Lipase within normal limits -UA benign -CT shows no acute bowel obstruction Interventions of: -Multiple doses of hydromorphone, ondansetron, Compazine, admit for ops for small bowel follow-through series once vomiting resolves, had NG tube inserted. ED Course/Assessment/Plan: 73-year-old female presents with similar syndrome to recent SBO, patient has known stricture, has not passed gas and is having bilious vomiting here in the ED, I did consult with general surgery Dr. Colon who does not feel the patient needs observation, I do think that the pain is quite severe, clinically the patient does have signs of obstruction I think she should be observed overnight, placed NG tube, plan to follow-up with a small bowel follow-through series, Dr. Silver accepts for admission at 2200. Disposition of small bowel obstruction. Patient verbalized understanding of the plan and return to ED criteria and engaged in shared decision making. Medical Records Medical records reviewed: Yes I reviewed the patient's medical records. Imaging Data Radiologic Study: Attestation: I personally reviewed and interpreted this imaging study as follows: Imaging: CT Scan Radiologist's impression: Exam: CT Abdomen And Pelvis Without Contrast Exam date and time: 05/02/2024 7:02 PM Age: 73 years old Clinical indication: Abdominal pain; Generalized; Prior surgery; Surgery date: 6+ months; Surgery type: Ostomy and reversal after bowel resection, spine surgeries with implants, appy; Patient HX: Abd pain, HX of sbos TECHNIQUE: Imaging protocol: Computed tomography of the abdomen and pelvis without contrast. Radiation optimization: All CT scans at this facility use at least one of these dose optimization techniques: automated exposure control; mA and/or kV adjustment per patient size (includes targeted exams where dose is matched to clinical indication); or iterative reconstruction. COMPARISON: CT ABDOMEN PELVIS WO 02/29/2024 8:37 PM FINDINGS: Tubes, catheters and devices: Nerve stimulation devices with leads of 1 terminating in thoracic spinal canal and of the 2nd, in right hemipelvis. Liver: Liver normal in size.There is diffuse decrease in hepatic parenchymal density, consistent with moderate to severe fatty infiltration. No mass. Gallbladder and biliary ducts: Prior cholecystectomy. No biliary ductal dilatation. Pancreas: Normal. No ductal dilation. Spleen: Normal. No splenomegaly. Adrenal glands: Normal. No mass. Kidneys and ureters: Normal. No hydronephrosis. Stomach and bowel: No dilated segments of small bowel or colonic dilatation. There are a few, scattered colonic diverticula. Appendix: No evidence of appendicitis. Intraperitoneal space: Unremarkable. No free air. No significant fluid collection. Vasculature: Unremarkable. No abdominal aortic aneurysm. Lymph nodes: Unremarkable. No enlarged lymph nodes. Urinary bladder: Unremarkable as visualized. Reproductive: Prior hysterectomy. Bones/joints: Status post lumbar posterior fusion and decompression procedures at L3 through S1 levels. Soft tissues: Surgical clips in an about left lower quadrant abdominal wall IMPRESSION: No acute findings. Dictated and Authenticated by: Jimmy Sahu MD. Lab Data Lab results reviewed: Yes I reviewed the patient's lab results. Labs: Laboratory Tests Range/Units 05/02/24 05/02/24 18:13 20:00 WBC (4.4-10.8) 10^3/uL 7.30 RBC (3.93-5.22) 10^6/uL 4.57 Hgb (11.2-15.7) g/dL 13.8 Hct (36.0-46.0) % 41.9 MCV (80-95) fL 92 MCH (27.0-33.0) pg 30.2 MCHC (32.0-36.0) % 32.9 RDW (11.7-14.6) % 12.9 Plt Count (130-400) 10^3/uL 244 MPV (8.0-11.0) fL 10.0 Immature Gran % % 0.1 Neutrophils % % 48.4 Lymphocytes % % 40.4 Monocytes % % 7.8 Eosinophils % % 2.5 Basophils % % 0.8 Nucleated RBC % (0.0-0.3) % 0.0 Absolute Neutrophils (1.2-6.7) 10^3/uL 3.53 Absolute Lymphocytes (1.2-3.4) 10^3/uL 2.95 Absolute Monocytes (0.1-0.8) 10^3/uL 0.57 Absolute Eosinophils (0.0-0.7) 10^3/uL 0.18 Absolute Basophils (0.0-0.2) 10^3/uL 0.06 VBG Lactate (0.6-1.4) mmol/L 1.7 H Sodium (136-145) mmol/L 141 Potassium (3.5-5.1) mmol/L 4.0 Chloride (98-107) mmol/L 104 Carbon Dioxide (21.0-32.0) mmol/L 28.3 Anion Gap (3-11) mmol/L 8.7 BUN (7-18) mg/dL 22 H Creatinine (0.55-1.02) mg/dL 1.0 Est GFR (CKD-EPI 2020) (mL/min/1.73m2) 59.86 Glucose (74-106) mg/dL 167 H Calcium (8.5-10.1) mg/dL 9.0 Magnesium (1.8-2.4) mg/dL 2.0 Total Bilirubin (0.2-1.0) mg/dL 0.32 AST (15-37) U/L 27 ALT (14-59) U/L 44 Alkaline Phosphatase (46-116) U/L 80 Total Protein (6.4-8.2) g/dL 8.0 Albumin (3.4-5.0) g/dL 4.1 Lipase (16-77) U/L 35 Urine Color (Yellow) Yellow Urine Clarity (Clear) Clear Urine pH (5-8) 6.0 Ur Specific [place] (1.005-1.025) 1.025 Urine Protein (Neg-Trace) mg/dL Negative Urine Ketones (Negative) mg/dL Negative Urine Blood (Negative) Negative Urine Nitrite (Negative) Negative Urine Bilirubin (Negative) Negative Urine Urobilinogen (Up to 0.2) mg/dL 0.2 Ur Leukocyte Esterase (Negative) Negative Urine Glucose (Negative) mg/dL Negative Quality:SDOH Health Related Social Needs: No Data to Display PFSH All Active Problems (Updated 11/18/24 @ 22:10 by KIMBERLY Ellison) Small bowel obstruction (Acute) Abdominal pain with nonbilious vomiting (Acute) Stenosis colon (Chronic) SBO (small bowel obstruction) (Acute) Abdominal discomfort (Acute) Chronic constipation (Chronic) Arthritis (Acute) Back pain (Acute) Eye disorder (Acute) GERD (gastroesophageal reflux disease) (Chronic) Obesity (Chronic) Claustrophobia (Acute) Hyperlipidemia (Acute) Hypertension (Chronic) Osteoporosis (Chronic) Headache (Acute) Asthma with COPD (chronic obstructive pulmonary disease) (Acute) Parkinsons disease (Chronic) 02/03/23 pt has a DBS implanted for this RH CAD (coronary artery disease) (Chronic) Vitamin D deficiency (Acute) Nausea and vomiting (Acute) Left upper quadrant abdominal pain (Acute) Diarrhea (Acute) Screening for colon cancer (Acute) Corns and callosities (Acute) Diabetes mellitus (Chronic) Cubital tunnel syndrome on left (Acute) Cubital tunnel syndrome on right (Acute) Trigger finger, left middle finger (Acute) Trigger finger, right middle finger (Acute) Left carpal tunnel syndrome (Acute) Right carpal tunnel syndrome (Acute) Medical History (Updated 05/02/24 @ 22:10 by KIMBERLY Ellison) Osteoarthritis of left knee mild Small bowel obstruction Diverticulitis PTSD (post-traumatic stress disorder) Light headedness Dermatitis Anxiety Petechial rash upper and lower extremities, chronic. Started in 2018. COPD (chronic obstructive pulmonary disease) Surgical History (Updated 03/02/24 @ 14:56 by Rae Harper) History of colonoscopy (~02/2024) History of colostomy reversal Social History Smoking/Tobacco Use Status: Former Tobacco Use Quit Date: 06/15/11 Smoking risk assessment performed?: Yes Alcohol Intake: never Drug use: Never Housing: house Do you feel safe at home: Yes Do you feel safe in your relationship?: Yes
[2024-05-02 18:20] LABS: Lactate 1.7 mmol/L (0.6-1.4)
[2024-05-02] MEDS: ACETAMINOPHEN 1,000 MG/100 ML BAG 400 MG IVPB (18:21)
[2024-05-02] MEDS: HYDROmorphone 2 MG/ML SYR 1 MG IVP (18:21)
[2024-05-02 18:22] LABS: Abs Immature Grans 0.01 10^3/uL (0.0-0.06); Absolute Basophil Count 0.06 10^3/uL (0.0-0.2); Absolute Eosinophil Count 0.18 10^3/uL (0.0-0.7); Absolute Lymphocyte Count 2.95 10^3/uL (1.2-3.4); Absolute Monocyte Count 0.57 10^3/uL (0.1-0.8); Absolute Neutrophil Count 3.53 10^3/uL (1.2-6.7); Basophils % 0.8 %; Eosinophils % 2.5 %; HCT 41.9 % (36.0-46.0); HGB 13.8 g/dL (11.2-15.7); Immature Grans % 0.1 %; Lymphocytes % 40.4 %; MCH 30.2 pg (27.0-33.0); MCHC 32.9 % (32.0-36.0); MCV 92 fL (80-95); Monocytes % 7.8 %; Neutrophils % 48.4 %; Platelet Count 244 10^3/uL (130-400); RBC 4.57 10^6/uL (3.93-5.22); RDW 12.9 % (11.7-14.6); RDW-SD 43.8 fL
[2024-05-02 18:28] VITALS: BP 163/92; PULSE 111; RESP 18; TEMP 36.7; O2SAT 95
[2024-05-02 18:38] LABS: ALT 44 U/L (14-59); AST 27 U/L (15-37); Albumin 4.1 g/dL (3.4-5.0); Alkaline Phosphatase 80 U/L (46-116); Anion Gap 8.7 mmol/L (3-11); BUN 22 mg/dL (7-18); Bilirubin, Total 0.32 mg/dL (0.2-1.0); CO2 28.3 mmol/L (21.0-32.0); Chloride 104 mmol/L (98-107); Estimated GFR 59.86 (mL/min/1.73m2); Glucose 167 mg/dL (74-106); Lipase 35 U/L (16-77); Sodium 141 mmol/L (136-145)
--- NOTE | 2024-05-02 19:09 | DI.CT_ITS ---
Exam(s) CT ABDOMEN PELVIS WO EXAM: CT ABDOMEN PELVIS WO CLINICAL HISTORY: SBO? contrast allergy. TECHNIQUE: Imaging Protocol: Axial computed tomography images with coronal and sagittal reformatted images were created and reviewed CONTRAST MATERIAL: Intravenous: none Oral: None COMPARISON: CT CT ABDOMEN PELVIS WO from 02/29/2024 FINDINGS: VISUALIZED LUNG BASES: No nodules nor pleural effusions evident. ABDOMEN: There is no ascites. LIVER: There are no obvious focal hepatic lesions evident of this noninfused study. GALLBLADDER/BILIARY: Gallbladder is surgically absent. CBD is not dilated. PANCREAS: No evidence of pancreatic mass nor dilatation of the pancreatic duct. SPLEEN: Spleen is not enlarged. No obvious intrasplenic lesions. ADRENALS: There are no significant adrenal masses. KIDNEYS:No cysts evident. No solid renal masses. No calculi nor hydronephrosis. . ABDOMINAL AORTA: The abdominal aorta is heavily calcified but not enlarged. LYMPH NODES: There is no retroperitoneal nor paraaortic adenopathy. ABDOMINAL WALL: No evidence of significant anterior abdominal wall nor inguinal hernia. GI: There is a small bowel anastomosis in the mid-lower pelvis. There does not appear to be a transi tion point at this level. However, there are some mildly dilated and fecalized bowel loops in the ce ntral-left side of the abdomen measuring up to 3.1 cm diameter. The colon is not collapsed. There are surgical clips in the anterior left abdomen evident. Also another small bowel anastomosis in the mid abdomen evident. PELVIS: LYMPH NODES: There is no intrapelvic nor inguinal adenopathy. GI: Appendix not seen and may be surgically absent. No evidence of appendicitis.No evidence of sigmo id diverticulitis. URINARY BLADDER: Bladder is collapsed. REPRODUCTIVE: Uterus surgically absent. No abnormal adnexal masses. No free fluid in the pelvis carly dent. OSSEOUS: There is posterior fusion hardware in the lumbar spine L3-S1 levels and there are both trans sacral stimulators and posterior epidural stimulator leads. No fractures evident. IMPRESSION: 1. Previous surgeries including cholecystectomy, probable appendectomy, hysterectomy, and lumbar spin al fusion surgery. Trans sacral and epidural stimulators evident. 2. There are small bowel anastomoses. There are mildly dilated small bowel loops in the left side of the abdomen measuring up to 3.1 cm. Probably indicating early small-bowel obstruction. There is no ascites nor free air. The colon is not collapsed. First read by [facility]. Final report called by myself to ER physician 05/03/2024 10:10 a.m. RADIATION DOSE DELIVERED: 494.15mGy.cm Total DLP DATA REPOSITORY: All CT scans at this facility are submitted to the National Radiology Data Registry (NRDR) Dose Index Registry (DIR) with the [employer] ([employer]). RADIATION OPTIMIZATION: All CT scans at this facility use at least one of these dose optimization te chniques: automated exposure control; mA and/or kV adjustment per patient size (includes targeted exa ms where dose is matched to clinical indication); or iterative reconstruction.
[2024-05-02] MEDS: Ondansetron 4 MG/2 ML VIAL IVP (19:52)
[2024-05-02 20:09] LABS: Bilirubin Negative (Negative); Blood Negative (Negative); Clarity Clear (Clear); Glucose Negative (Negative); Ketones Negative (Negative); Leukocyte Esterase Negative (Negative); Nitrite Negative (Negative); Specific Gravity 1.025 (1.005-1.025); Urobilinogen 0.2 mg/dL (Up to 0.2)
--- NOTE | 2024-05-02 20:10 | DI.VRAD_ITS ---
PROCEDURE INFORMATION: Exam: CT Abdomen And Pelvis Without Contrast Exam date and time: 05/02/2024 7:02 PM Age: 73 years old Clinical indication: Abdominal pain; Generalized; Prior surgery; Surgery date: 6+ months; Surgery type: Ostomy and reversal after bowel resection, spine surgeries with implants, appy; Patient HX: Abd pain, HX of sbos TECHNIQUE: Imaging protocol: Computed tomography of the abdomen and pelvis without contrast. Radiation optimization: All CT scans at this facility use at least one of these dose optimization techniques: automated exposure control; mA and/or kV adjustment per patient size (includes targeted exams where dose is matched to clinical indication); or iterative reconstruction. COMPARISON: CT ABDOMEN PELVIS WO 02/29/2024 8:37 PM FINDINGS: Tubes, catheters and devices: Nerve stimulation devices with leads of 1 terminating in thoracic spinal canal and of the 2nd, in right hemipelvis. Liver: Liver normal in size.There is diffuse decrease in hepatic parenchymal density, consistent with moderate to severe fatty infiltration. No mass. Gallbladder and biliary ducts: Prior cholecystectomy. No biliary ductal dilatation. Pancreas: Normal. No ductal dilation. Spleen: Normal. No splenomegaly. Adrenal glands: Normal. No mass. Kidneys and ureters: Normal. No hydronephrosis. Stomach and bowel: No dilated segments of small bowel or colonic dilatation. There are a few, scattered colonic diverticula. Appendix: No evidence of appendicitis. Intraperitoneal space: Unremarkable. No free air. No significant fluid collection. Vasculature: Unremarkable. No abdominal aortic aneurysm. Lymph nodes: Unremarkable. No enlarged lymph nodes. Urinary bladder: Unremarkable as visualized. Reproductive: Prior hysterectomy. Bones/joints: Status post lumbar posterior fusion and decompression procedures at L3 through S1 levels. Soft tissues: Surgical clips in an about left lower quadrant abdominal wall IMPRESSION: No acute findings. Dictated and Authenticated by: Jimmy Sahu MD. Ordering:MINA Chang MD
[2024-05-02] MEDS: HYDROmorphone 2 MG/ML SYR 0.5 MG IVP (20:37)
--- NOTE | 2024-05-02 21:14 | ED.PROG_ITS ---
Date of service: 05/02/24 Time of Service: 21:14 Medical Decision Making Case discussed with PA. A [id number] evaluation was provided by me secondary to PA request. Patient is a 73-year-old female with significant abdominal surgical history and complications. Presenting with severe abdominal pain, vomiting, she is not passing flatus. On my evaluation she is very uncomfortable. She has generalized abdominal tenderness and guarding. Although her initial CT scan did not have a read of small bowel obstruction from the read, I feel that based on her clinical presentation and history the likelihood that she has a small bowel obstruction is very high and the patient should be treated as such. Will admit to the management. Quality:[facility] Health Related Social Needs: No Data to Display Discharge Plan Discharge Details Chief Complaint: Abd Prob Primary Care Provider: Nikolas Matos ED Provider: Bernardo Kearney Home Meds and New Rx's Prescriptions: No Action albuterol sulfate 90 mcg/actuation HFA aerosol inhaler 2 puff inhalation Q6H PRN amlodipine 10 mg tablet 10 mg PO DAILY diphenhydramine HCl [Allergy (diphenhydramine)] 25 mg capsule 25 mg PO QHS PRN isosorbide mononitrate 60 mg tablet extended release 24 hr 60 mg PO DAILY nitroglycerin 0.4 mg tablet, sublingual 0.4 mg sublingual Q5M PRN Rx Instructions: do not exceed 3 doses per episode omeprazole 20 mg capsule,delayed release(DR/EC) 20 mg PO BID aspirin 81 mg tablet,delayed release (DR/EC) 81 mg PO DAILY Docusate Sodium 200 mg PO HS metformin 1,000 mg tablet 1,000 mg PO BID hydroxyzine HCl 25 mg tablet 25 mg PO TID PRN Jardiance 10 mg tablet 10 mg PO DAILY triamcinolone acetonide 0.1 % cream 1 applic topical BID topiramate [Topamax] 25 mg tablet 25 mg PO BID levalbuterol tartrate 45 mcg/actuation HFA aerosol inhaler 2 inh inhalation Q6H atorvastatin 20 mg tablet 20 mg PO DAILY fluticasone furoate-vilanterol [Breo Ellipta] 100-25 mcg/dose blister with device 1 inh inhalation DAILY famotidine 40 mg tablet 40 mg PO DAILY metoprolol succinate 100 mg tablet extended release 24 hr 100 mg PO DAILY trazodone 100 mg tablet 100 mg PO QHS PRN losartan 100 mg tablet 100 mg PO DAILY Patient Comments: TAKE ONE TABLET BY MOUTH EVERY DAY Ozempic 0.25 mg or 0.5 mg (2 mg/3 mL) pen injector 0.5 mg SUBCUT .weekly Patient Comments: INJECT 0.25 MG SUBCUTANEOUSLY ONCE WEEKLY FOR FIRST FOUR WEEKS, THEN INCREASE TO 0.5 MG ONCE WEEKLY
--- NOTE | 2024-05-02 21:55 | HPE_ITS ---
Date of service: 05/02/24 Time of Service: 21:57 Assessment and Plan Assessment and plan (1) Abdominal pain with vomiting: Start date: 05/02/24 Status: Acute Assessment and plan: This is a 78-year-old lady who has a history of recurrent episodes of nausea and vomiting with syncopal episodes though these have never been evaluated fully. He does have known stenosis at the anastomosis of her sigmoid colon 20 cm from the anus by colonoscopy in 2023 performed by general surgery. She has chronic constipation and these bouts of emesis with bloating occur about every 6 months according to the . She has had evaluation in [place] where she had her initial surgery and recently evaluation locally for possible diverting colostomy because of her recurrent symptoms. She gives no history of overt CAD though she did have cardiac catheterization in 2020 which revealed a 30% RCA lesion and she was placed on medical therapy with Imdur. She also is on Lipitor. He has had no previous heart attack. Shortly after admission to [facility] the patient did have a syncopal episode with her emesis but cardiovascular had not been placed as of yet and early in the morning patient had another episode of syncope with third-degree heart block lasting more than 2 seconds and self resolving. This may be the underlying cause of her nausea and vomiting versus secondary to her baby with emesis. Will continue observation in the ICU with pacing pads in place, stat EKG and troponin trending and with cardiology to be consulted at [facility] where she sees neurology for her Parkinson's type disease with implants. NG tube will continue in place for now though it appears to not be resolving her episodes of emesis with patient having emesis around the NG tube. Surgery can comment on this problem. She is a full code. (2) Heart block AV third degree: Start date: 05/02/24 Status: Acute Assessment and plan: Patient has not had diagnosis of third-degree heart block and this appears to be depressed incidents. She does have syncopal episodes with emesis at home which are not observed with cardiac monitoring. He may be at risk for sustained heart block and some of her symptoms may be associated with dysrhythmia. This will need to be evaluated by cardiology and surgery. For now she will have external pacemaker pads in place with consultation with [facility] cardiology once further lab is obtained. (3) CAD (coronary artery disease): Status: Chronic Assessment and plan: Status post cardiac catheterization 2020 in [place] with 30% lesion of RCA not intervened upon. On medical therapy and has been overall stable with no history of previous AL. Qualifiers: Coronary Disease-Associated Artery/Lesion type: lo[place]ock artery [place] vs. transplanted heart: lovelock heart Associated angina: without angina Q ualified Code(s): I25.10 - Atherosclerotic heart disease of lovelock coronary artery without angina pectoris (4) Stenosis colon: Status: Chronic Assessment and plan: Patient has known stenosis at 20 cm from the anus by colonoscopy from previous reanastomosis of sigmoid colon. Surgery will follow-up. (5) Chronic constipation: Status: Chronic Assessment and plan: Secondary to sigmoid obstruction according to the patient. Getting a tolerance should be given. (6) Diabetes mellitus: Status: Chronic Assessment and plan: Hold outpatient therapy with glucometers before meals and at bedtime and moderate insulin dosing per sliding scale. 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 Qualifiers: Hypertension type: primary hypertension Qualified Code(s): I10 - Essential (primary) hypertension (8) Hyperlipidemia: Status: Chronic Assessment and plan: Associated with CAD and diabetes, continue atorvastatin. Qualifiers: Hyperlipidemia type: mixed hyperlipidemia Qualified Code(s): E78.2 - Mixed hyperlipidemia (9) COPD (chronic obstructive pulmonary disease): Assessment and plan: Continue inhaler therapy while hospitalized. Qualifiers: COPD type: chronic bronchitis Chronic bronchitis type: simple Q ualified Code(s): J41.0 - Simple chronic bronchitis (10) Parkinsons disease: Status: Chronic Assessment and plan: With implanted stimulators to be monitored by neurology at [facility]. Qualifiers: Dyskinesia presence: without dyskinesia Fluctuating manifestations: w ithout fluctuating manifestations Qualified Code(s): G20.A1 - Parkinson's disease without dyskinesia, without mention of fluctuations History of Present Illness History of Present Illness Chief Complaint: 1 week of abdominal pain with crescendo pain, bloating and nausea/vomiting Narrative: This is a 73-year-old female patient who presented [place] after 2022 moving to [place] with recurrent abdominal pain in her left lower quadrant where she had a previous colostomy after bowel resection for persistent diverticulosis with recurrent diverticulitis. While in [place], patient had abdominal surgery with bowel resection and colostomy and then reversal of the colostomy after which she has had continued recurrent bouts of increased pain with hard stool which was not able to move through a stenotic section of the reanastomosis of the colon. She has been chronically constipated. She even had recurrent surgery with revision of this stenosis which was unsuccessful. She was seen recently in February 2024 at this ED but sent home and then recalled back by Fernando Rizo MD the general surgeon. Colonoscopy did reveal a stricture at 20 cm from the anus which was the cause of her recurrent obstructive symptoms and there was discussion of possibly having a diverting colostomy again because of her recurrent symptoms. At that time she did not have control of her diabetes for the procedure to take place. She has been doing better with her diabetes more recently. She has not been in this hospital since February 2024. Evaluation in ED did not reveal any abnormalities by CT or lab which would warrant immediate surgical intervention the patient was having persistent pain with cramps, bloating and nausea with dry heaves and vomiting. She reacts with bilious emesis and NG tube was placed with moderate amount of output to suction. With her persistent nausea and vomiting even with the NG tube in place, she was admitted for observation overnight for bowel rest with symptomatic treatment. Surgery had been consulted to evaluate patient for emergent versus scheduled intervention if indicated. After the patient was transferred to [facility], she had a syncopal episode transferring to her bed. She was not on telemetry at the time and she gave a history of having this happen all the time at home with her episodes of emesis. Early in the morning the patient had another episodeof emesis pass her NG tube and nurse monitoring revealed spontaneous third-degree heart block lasting more than 2 seconds and self resolving. She did not have syncopal episode, chest pain or shortness of breath and denied diaphoresis. The patient was moved to the ICU for closer monitoring with stat troponin and EKG ordered as well as follow-up for troponin. Patient states she has never had these dysrhythmias before by history though she does have nerve stimulators placed in her brain and spine for Parkinson's-like disease and she has had a cardiac catheterization in 2020 showing 30% lesion in the RCA without intervention other than medical therapy including Imdur. She does state that she has a syncopal and near syncopal episodes almost every time she has these episodes of severe vomiting. Patient does see neurology at [facility] and records will be obtained as well as phone conversation with [facility] cardiology to be followed up on by the day hospitalist wants more data is gathered with patient continue to be observed with ZOLL patches external pacing if necessary in the ICU until further investigations. She is a full code. Review of Systems Narrative: 13 point review of systems otherwise unrevealing or stable. [facility] All Active Problems (Updated 05/03/24 @ 06:58 by Jovany Pedro) Heart block AV third degree (Acute) Abdominal pain with vomiting (Acute) Small bowel obstruction (Acute) Stenosis colon (Chronic) SBO (small bowel obstruction) (Acute) Abdominal discomfort (Acute) Chronic constipation (Chronic) Arthritis (Acute) Back pain (Acute) Eye disorder (Acute) GERD (gastroesophageal reflux disease) (Chronic) Obesity (Chronic) Claustrophobia (Acute) Hyperlipidemia (Chronic) Hypertension (Chronic) Osteoporosis (Chronic) Headache (Acute) Asthma with COPD (chronic obstructive pulmonary disease) (Acute) Parkinsons disease (Chronic) 02/03/23 pt has a DBS implanted for this RH CAD (coronary artery disease) (Chronic) Vitamin D deficiency (Acute) Nausea and vomiting (Acute) Left upper quadrant abdominal pain (Acute) Diarrhea (Acute) Screening for colon cancer (Acute) Corns and callosities (Acute) Diabetes mellitus (Chronic) Cubital tunnel syndrome on left (Acute) Cubital tunnel syndrome on right (Acute) Trigger finger, left middle finger (Acute) Trigger finger, right middle finger (Acute) Left carpal tunnel syndrome (Acute) Right carpal tunnel syndrome (Acute) Medical History (Updated 05/03/24 @ 06:58 by Jovany Pedro) Abdominal pain with nonbilious vomiting Osteoarthritis of left knee mild Small bowel obstruction Diverticulitis PTSD (post-traumatic stress disorder) Light headedness Dermatitis Anxiety Petechial rash upper and lower extremities, chronic. Started in 2018. COPD (chronic obstructive pulmonary disease) Surgical History (Updated 03/02/24 @ 14:56 by Rae Harper) History of colonoscopy (~02/2024) History of colostomy reversal Social History Smoking/Tobacco Use Status: Former Tobacco Use Quit Date: 06/15/11 Smoking risk assessment performed?: Yes Alcohol Intake: never Drug use: Never Housing: house Do you feel safe at home: Yes Do you feel safe in your relationship?: Yes Meds Allergies and Home Medications Allergies Allergy/AdvReac Type Severity Reaction Status Date / Time alprazolam (From Xanax) Allergy Severe hives Verified 05/02/24 17:45 codeine Allergy Severe throat Verified 05/02/24 17:45 swells shut meperidine (From Demerol) Allergy Severe Hives Verified 05/02/24 17:45 Penicillins Allergy Severe throat Verified 05/02/24 17:45 swells shut butorphanol (From Stadol) Allergy Intermediate Anaphylaxis Verified 05/02/24 17:45 Iodinated Contrast Media Allergy Intermediate rash, Verified 05/02/24 17:45 nausea, vomiting ketorolac (From Toradol) AdvReac Intermediate Nausea Verified 05/02/24 17:45 IV Contrast Allergy Severe Skin Rash Uncoded 05/02/24 17:45 Home Medications ?Medication ?Instructions ?Recorded ?Confirmed ?Type Docusate Sodium 200 mg PO HS 04/07/22 05/02/24 History albuterol sulfate 90 mcg/actuation 2 puff inhalation Q6H PRN 04/07/22 05/02/24 History aerosol inhaler amlodipine 10 mg tablet 10 mg PO DAILY 04/07/22 05/02/24 History aspirin 81 mg tablet,delayed 81 mg PO DAILY 04/07/22 05/02/24 History release diphenhydramine HCl 25 mg capsule 25 mg PO QHS PRN 04/07/22 05/02/24 History (Allergy (diphenhydramine)) isosorbide mononitrate 60 mg 60 mg PO DAILY 04/07/22 05/02/24 History tablet,extended release 24 hr nitroglycerin 0.4 mg sublingual 0.4 mg sublingual Q5M PRN 04/07/22 05/02/24 History tablet omeprazole 20 mg capsule,delayed 20 mg PO BID 04/07/22 05/02/24 History release hydroxyzine HCl 25 mg tablet 25 mg PO TID PRN 04/21/22 05/02/24 History metformin 1,000 mg tablet 1,000 mg PO BID 04/21/22 05/02/24 History empagliflozin 10 mg tablet 10 mg PO DAILY 08/05/22 05/02/24 History (Jardiance) triamcinolone acetonide 0.1 % 1 applic topical BID 08/05/22 05/02/24 History topical cream levalbuterol tartrate 45 2 inh inhalation Q6H 07/06/23 05/02/24 History mcg/actuation aerosol inhaler topiramate 25 mg tablet (Topamax) 25 mg PO BID 07/06/23 05/02/24 History atorvastatin 20 mg tablet 20 mg PO DAILY 01/27/24 05/02/24 History famotidine 40 mg tablet 40 mg PO DAILY 01/27/24 05/02/24 History fluticasone furoate 100 1 inh inhalation DAILY 01/27/24 05/02/24 History mcg-vilanterol 25 mcg/dose inhalation powder (Breo Ellipta) metoprolol succinate 100 mg 100 mg PO DAILY 01/27/24 05/02/24 History tablet,extended release 24 hr trazodone 100 mg tablet 100 mg PO QHS PRN 01/27/24 05/02/24 History losartan 100 mg tablet 100 mg PO DAILY 03/01/24 05/02/24 History semaglutide 0.25 mg or 0.5 mg (2 0.5 mg subcut .weekly 05/02/24 05/02/24 History mg/3 mL) subcutaneous pen injector (Ozempic) Exam Narrative Exam Narrative: General: Patient appears appropriate for age, short stature and obese, alert and oriented x 3 and in moderate distress from her nausea and vomiting but in between episodes appears comfortable. She now has an NG tube in place. HEENT: Normocephalic with palpable protuberances over the parietal area of the skull bilaterally, eyes with pupils equal and reactive to light symmetrically, extraocular movement intact and sclera anicteric. Oropharynx with dry mucosa and fair dentition. NG tube in place. Neck: Supple without JVD. Back: Kyphotic without CVA tenderness. Lungs: Fair aeration and clear to auscultation percussion with bronchovesicular breath sound diffusely but no focalizing rales or rhonchi, no wheeze. Breast: Exam deferred. Abdomen: Obese contour, slightly protuberant, bowel sounds are slightly hyperactive over the left abdomen and decreased over the right, no tympany to percussion, tender in the mid abdomen around the umbilicus and left abdomen with guarding focally though overall soft and slight focal rebound reported by patient. No palpable hepatosplenomegaly. Well-healed incisional scars over the infraumbilical area and left abdomen. Genitalia/rectal: Exam deferred. Extremities: Without clubbing, cyanosis or grossly pitting edema. Capillary refill is fair. Skin: Normal color, warm and dry. Neuro: Cranial nerves II through XII gross intact, no focalizing motor deficits. No tremor. Psych: Slightly anxious and depressed mood, no abnormal thought processes. Remote and recent memory grossly intact though patient is a vague historian. Results Imaging Imaging Studies: Exam: CT Abdomen And Pelvis Without Contrast Exam date and time: 05/02/2024 7:02 PM Age: 73 years old Clinical indication: Abdominal pain; Generalized; Prior surgery; Surgery date: 6+ months; Surgery type: Ostomy and reversal after bowel resection, spine surgeries with implants, appy; Patient HX: Abd pain, HX of sbos COMPARISON: CT ABDOMEN PELVIS WO 02/29/2024 8:37 PM FINDINGS: Tubes, catheters and devices: Nerve stimulation devices with leads of 1 terminating in thoracic spinal canal and of the 2nd, in right hemipelvis. Liver: Liver normal in size.There is diffuse decrease in hepatic parenchymal density, consistent with moderate to severe fatty infiltration. No mass. Gallbladder and biliary ducts: Prior cholecystectomy. No biliary ductal dilatation. Pancreas: Normal. No ductal dilation. Spleen: Normal. No splenomegaly. Adrenal glands: Normal. No mass. Kidneys and ureters: Normal. No hydronephrosis. Stomach and bowel: No dilated segments of small bowel or colonic dilatation. There are a few, scattered colonic diverticula. Appendix: No evidence of appendicitis. Intraperitoneal space: Unremarkable. No free air. No significant fluid collection. Vasculature: Unremarkable. No abdominal aortic aneurysm. Lymph nodes: Unremarkable. No enlarged lymph nodes. Urinary bladder: Unremarkable as visualized. Reproductive: Prior hysterectomy. Bones/joints: Status post lumbar posterior fusion and decompression procedures at L3 through S1 levels. Soft tissues: Surgical clips in an about left lower quadrant abdominal wall IMPRESSION: No acute findings. Labs 05/02/24 18:13 05/02/24 18:13 Labs: Laboratory Results - last 24 hr 05/02/24 05/02/24 18:13 20:00 WBC 7.30 RBC 4.57 Hgb 13.8 Hct 41.9 MCV 92 MCH 30.2 MCHC 32.9 RDW 12.9 Plt Count 244 MPV 10.0 Immature Gran % 0.1 Neutrophils % 48.4 Lymphocytes % 40.4 Monocytes % 7.8 Eosinophils % 2.5 Basophils % 0.8 Nucleated RBC % 0.0 Absolute Neutrophils 3.53 Absolute Lymphocytes 2.95 Absolute Monocytes 0.57 Absolute Eosinophils 0.18 Absolute Basophils 0.06 VBG Lactate 1.7 H Sodium 141 Potassium 4.0 Chloride 104 Carbon Dioxide 28.3 Anion Gap 8.7 BUN 22 H Creatinine 1.0 Est GFR (CKD-EPI 2020) 59.86 Glucose 167 H Calcium 9.0 Magnesium 2.0 Total Bilirubin 0.32 AST 27 ALT 44 Alkaline Phosphatase 80 Total Protein 8.0 Albumin 4.1 Lipase 35 Urine Color Yellow Urine Clarity Clear Urine pH 6.0 Ur Specific [place] 1.025 Urine Protein Negative Urine Ketones Negative Urine Blood Negative Urine Nitrite Negative Urine Bilirubin Negative Urine Urobilinogen 0.2 Ur Leukocyte Esterase Negative Urine Glucose Negative Last Vital Signs Temp 36.7 C 05/02/24 18:28 Pulse 111 H 05/02/24 18:28 Resp 18 05/02/24 18:28 BP 163/92 H 05/02/24 18:28 Pulse Ox 95 05/02/24 18:28 Time Spent Time spent with Patient: >75 minutes Time was spent: preparing to see the patient(eg.review tests), obtaining and/or reviewing separately otained hiistory, ordering medications,tests, procedures, referring, communicating with other health health care marketing manager, indepentently interpreting results, counseling the patient and care coordination
[2024-05-02] MEDS: Prochlorperazine 10 MG/2 ML VIAL 5 MG IVP (22:16)
[2024-05-02] MEDS: Lidocaine 2% Jelly 11 ML SYR (22:16)
[2024-05-02 22:25] VITALS: BP 152/81; PULSE 92; RESP 20; TEMP 36.8; O2SAT 93
--- NOTE | 2024-05-02 22:43 | DI.RAD_ITS ---
Exam(s) XR ABDOMEN FLAT PLATE EXAM: XR ABDOMEN FLAT PLATE CLINICAL HISTORY: bilious vomiting. TECHNIQUE: 2D digital imaging was performed. COMPARISON: CR XR ABDOMEN FLAT UPRIGHT from 03/01/[address] ABDOMEN PELVIS WO from 05/02/2024 FINDINGS: Single AP view of abdomen There is an NG tube in place with distal tip in the stomach along the greater curvature. The stomach is not distended. There are clips in the right upper quadrant prior cholecystectomy. Bilateral buttock stimulator shaka delmar. The right is trans sacral. The left is posterior epidural. There is multilevel lumbar spine fusion surgery L3-S1. IMPRESSION: Distal tip of the NG tube is in the stomach. Stomach is not distended. DATA REPOSITORY: RADIATION DOSE DELIVERED:
--- NOTE | 2024-05-02 22:48 | DI.VRAD_ITS ---
PROCEDURE INFORMATION: Exam: XR Abdomen Exam date and time: 05/02/2024 10:41 PM Age: 73 years old Clinical indication: Other: Ng tube placement; Prior surgery; Surgery date: 6+ months; Surgery type: Appendix, colectomy, colostomy, lumbar fusion. TECHNIQUE: Imaging protocol: Radiologic exam of the abdomen. Views: Frontal supine view of the abdomen. 1 View. COMPARISON: CT ABDOMEN PELVIS WO 05/02/2024 7:02 PM FINDINGS: Tubes, catheters and devices: Distal portion of enteric tube projects over left upper quadrant. Nerve stimulation devices noted. Gastrointestinal tract: Normal. No bowel dilation. Bones/joints: Prior lumbar spine surgery. IMPRESSION: Distal portion of enteric tube in stomach. Dictated and Authenticated by: Jimmy Sahu MD. Ordering:ADILENE Lion MD
[2024-05-02 23:05] LABS: Source Nasal/Nares
[2024-05-02 23:39] LABS: COVID-19 PCR Negative (Negative)
[2024-05-02 23:57] VITALS: BP 111/39; PULSE 90; RESP 18; O2SAT 89
[2024-05-02 23:58] VITALS: BP 111/39; PULSE 89; O2SAT 89
[2024-05-03] VITALS (37 sets, daily range): BP systolic 98–177; BP diastolic 41–90; PULSE 81–111; RESP 9–25; TEMP 36.4–37.9; O2SAT 89–96
[2024-05-03] MEDS: Lactated Ringers 500 ML IV (00:37)
--- NOTE | 2024-05-03 00:50 | NUR.NOTE ---
Nursing Note: Pt arrived to floor at 0010, when pt got up from stretcher to bed she stated im going to throw up pt then sat down and fell back in to the bed and lost consciousness. Sternal rubbed pt and she woke up immediately. Per pt this happens almost every time she vomits. Dr. Cornejo made aware and ordered a 500mL bolus, given per AUG.
[2024-05-03] MEDS: Metoprolol 25 MG TAB PO (01:00)
[2024-05-03] MEDS: HYDROmorphone 1 MG/ML SYR 0.5 MG IVP ×3 (01:01→08:16)
[2024-05-03] MEDS: Pantoprazole 40 MG VIAL IVP (01:01)
[2024-05-03] MEDS: Docusate Sodium 100 MG CAP PO (01:01)
[2024-05-03] MEDS: Ondansetron 4 MG/2 ML VIAL IVP ×2 (01:01→05:30)
[2024-05-03] MEDS: Lactated Ringers 1,000 ML 125 ML IV ×4 (01:32→21:57)
[2024-05-03] MEDS: Insulin Aspart 300 UNITS/3 ML PEN SC (02:12)
[2024-05-03] MEDS: Levalbuterol HFA 15 GM INH 2 PUFF IH ×5 (02:14→23:47)
[2024-05-03] MEDS: Heparin 5,000 UNITS/ML VIAL 5000 UNITS SC ×3 (05:07→22:00)
--- NOTE | 2024-05-03 06:00 | RT.EKG_ITS ---
APPROVED REPORT Exam: Resting ECG Reason for Exam: Complete heart block with emesis Patient Location: I HR:93 bpm ECG Measurements Heart Rate 93 AXIS NJ 170 P 57 QRSd 88 QRS 33 QT 355 T 52 QTc 442 Conclusion Sinus rhythm...normal P axis, V-rate 50- 99 Artifact in lead(s) I,III,aVR,aVL,aVF,V1,V4 Normal Electrocardiogram
--- NOTE | 2024-05-03 06:36 | NUR.NOTE ---
Nursing Note: Pt transferred to ICU at 6:25, Bedside Report given to Perri ADAMS.
--- NOTE | 2024-05-03 06:37 | NUR.NOTE ---
Nursing Note: Pt vomiting 0520 after receiving pain meds, left room to get pt Zofran and saw Perri RN run into the room. Per Perri pts tele strip looked like Asystole. Perri came back with a printed strip of 3rd degree heard block. Dr. Cornejo paged at 0525 and was notified at 0528. Pt given zofran per MAR and VSS at that time. MD came to floor to speak with patient about 20 mins later and was placing orders for ICU transfer. Zoll pads placed on pt and pt transferred to ICU with all belongings at 0626.
[2024-05-03 07:12] LABS: HCT 40.7 % (36.0-46.0); HGB 13.5 g/dL (11.2-15.7); MCH 30.8 pg (27.0-33.0); MCHC 33.2 % (32.0-36.0); MCV 93 fL (80-95); RBC 4.39 10^6/uL (3.93-5.22); RDW 12.9 % (11.7-14.6); RDW-SD 43.8 fL; WBC 6.77 10^3/uL (4.4-10.8)
--- NOTE | 2024-05-03 07:29 | W.PC.ACHO ---
Registration Status: Primary Language: Preferred Language: ED Information & Data Chief Complaint Abd Prob 05/02/24 21:55 Chief Complaint Abd Prob 05/02/24 17:55 Triage Note Patient here with severe 05/02/24 17:41 abdominal pain. Pain started this afternoon. She thinks it is another bowel blockage . Patient was in the hospital in Mar 08 with blockage. nausea and vomiting and chills. Last BM was two days ago both formed and diarrhea. Medical / Surgical History (Last Updated 05/02/24 @ 22:36 by Jovany Pedro) Abdominal pain with nonbilious vomiting Osteoarthritis of left knee Small bowel obstruction Diverticulitis PTSD (post-traumatic stress disorder) Light headedness Dermatitis Anxiety Petechial rash COPD (chronic obstructive pulmonary disease) (Last Updated 03/02/24 @ 14:56 by Rae Harper) History of colonoscopy (~02/2024) History of colostomy reversal Most Recent Vital Signs Temperature 37.9 C H 05/03/24 06:20 Temperature Source Tympanic 05/03/24 06:20 Pulse 97 H 05/03/24 06:20 Pulse Rhythm Regular 05/03/24 01:48 Pulse Strength Normal 05/02/24 22:25 Respiratory Rate 11 L 05/03/24 06:20 Respiratory Effort Normal 05/03/24 06:20 Respiratory Depth Normal 05/03/24 06:20 Respiratory Pattern Normal 05/03/24 06:20 Blood Pressure 144/69 H 05/03/24 06:20 Blood Pressure Mean 94 05/03/24 06:20 Blood Pressure Position Supine 05/03/24 06:20 Pulse Oximetry 94 05/03/24 06:20 Oxygen Delivery Method Room Air 05/03/24 06:20 Oxygen Flow Rate 0 05/03/24 06:20 Pain Level 0 05/03/24 06:20 Allergies alprazolam (From Xanax) Allergy (Severe, Verified 05/02/24 17:45) hives codeine Allergy (Severe, Verified 05/02/24 17:45) throat swells shut meperidine (From Demerol) Allergy (Severe, Verified 05/02/24 17:45) Hives Penicillins Allergy (Severe, Verified 05/02/24 17:45) throat swells shut butorphanol (From Stadol) Allergy (Intermediate, Verified 05/02/24 17:45) Anaphylaxis Iodinated Contrast Media Allergy (Intermediate, Verified 05/02/24 17:45) rash, nausea, vomiting ketorolac (From Toradol) Adverse Reaction (Intermediate, Verified 05/02/24 17:45) Nausea IV Contrast Allergy (Severe, Uncoded 05/02/24 17:45) Skin Rash Active Medications Generic Name Dose Route Start Last Admin Trade Name Freq PRN Reason Stop Dose Admin Docusate Sodium 100 mg 05/03/24 00:17 05/03/24 01:01 Docusate Sodium 100 Mg Cap PO 100 mg TID PRN PRN Administration Heparin Sodium (Porcine) 5,000 units 05/03/24 06:00 05/03/24 05:07 Heparin 5,000 Units/Ml Vial SC 5,000 units Q8H DAMEON Administration Hydromorphone HCl 0.5 mg 05/03/24 00:51 05/03/24 05:13 Hydromorphone 1 Mg/Ml Syr IVP 0.5 mg Q4H PRN PRN Administration Ringer's Solution 1,000 mls @ 125 mls/hr 05/03/24 00:17 05/03/24 05:08 IV 125 mls/hr INFUSION DAMEON Administration Insulin Aspart 0 - 18 units 05/03/24 00:00 05/03/24 06:04 Insulin Aspart 300 Units/3 Ml Pen SC Not Given Q6H DAMEON Protocol Levalbuterol 2 puff 05/03/24 00:00 05/03/24 06:36 Levalbuterol Hfa 15 Gm Inh IH 2 puff Q6H DAMEON Administration Ondansetron HCl 4 mg 05/03/24 00:43 05/03/24 05:30 Ondansetron 4 Mg/2 Ml Vial IVP 4 mg Q4H PRN PRN Administration Abdominal Pain Pantoprazole Sodium 40 mg 05/03/24 00:00 05/03/24 01:01 Pantoprazole 40 Mg Vial IVP 40 mg HS DAMEON Administration IV IV Catheter Type [Right Peripheral IV Forearm] IV Catheter Gauge [Right 20 Forearm] Diet Orders Category Date Time Status Nothing Per Oral [DIET] Nutrition 05/03/24 Breakfast Active Diagnostics 05/03/24 05/03/24 05/03/24 Range/Units 10:00 06:13 05:35 WBC Pending (4.4-10.8) 10^3/uL RBC Pending (3.93-5.22) 10^6/uL Hgb Pending (11.2-15.7) g/dL Hct Pending (36.0-46.0) % MCV Pending (80-95) fL MCH Pending (27.0-33.0) pg MCHC Pending (32.0-36.0) % RDW Pending (11.7-14.6) % Plt Count Pending (130-400) 10^3/uL MPV Pending (8.0-11.0) fL Immature Gran % % Neutrophils % % Lymphocytes % % Monocytes % % Eosinophils % % Basophils % % Nucleated RBC % (0.0-0.3) % Absolute Neutrophils (1.2-6.7) 10^3/uL Absolute Lymphocytes (1.2-3.4) 10^3/uL Absolute Monocytes (0.1-0.8) 10^3/uL Absolute Eosinophils (0.0-0.7) 10^3/uL Absolute Basophils (0.0-0.2) 10^3/uL PT INR VBG Lactate (0.6-1.4) mmol/L Sodium Pending (136-145) mmol/L Potassium Pending (3.5-5.1) mmol/L Chloride Pending (98-107) mmol/L Carbon Dioxide Pending (21.0-32.0) mmol/L Anion Gap Pending (3-11) mmol/L BUN Pending (7-18) mg/dL Creatinine Pending (0.55-1.02) mg/dL Est GFR (CKD-EPI 2020) Pending (mL/min/1.73m2) Glucose Pending (74-106) mg/dL Calcium Pending (8.5-10.1) mg/dL Magnesium Pending (1.8-2.4) mg/dL Total Bilirubin Pending (0.2-1.0) mg/dL AST Pending (15-37) U/L ALT Pending (14-59) U/L Alkaline Phosphatase Pending (46-116) U/L Troponin I Pending Pending Total Protein Pending (6.4-8.2) g/dL Albumin Pending (3.4-5.0) g/dL Lipase (16-77) U/L Urine Color (Yellow) Urine Clarity (Clear) Urine pH (5-8) Ur Specific T[place]te (1.005-1.025) Urine Protein (Neg-Trace) mg/dL Urine Ketones (Negative) mg/dL Urine Blood (Negative) Urine Nitrite (Negative) Urine Bilirubin (Negative) Urine Urobilinogen (Up to 0.2) mg/dL Ur Leukocyte Esterase (Negative) Urine Glucose (Negative) mg/dL COVID-19 Source SARS-CoV-2 (PCR) (Negative) 05/03/24 05/02/24 05/02/24 Range/Units 00:17 22:45 20:00 WBC (4.4-10.8) 10^3/uL RBC (3.93-5.22) 10^6/uL Hgb (11.2-15.7) g/dL Hct (36.0-46.0) % MCV (80-95) fL MCH (27.0-33.0) pg MCHC (32.0-36.0) % RDW (11.7-14.6) % Plt Count (130-400) 10^3/uL MPV (8.0-11.0) fL Immature Gran % % Neutrophils % % Lymphocytes % % Monocytes % % Eosinophils % % Basophils % % Nucleated RBC % (0.0-0.3) % Absolute Neutrophils (1.2-6.7) 10^3/uL Absolute Lymphocytes (1.2-3.4) 10^3/uL Absolute Monocytes (0.1-0.8) 10^3/uL Absolute Eosinophils (0.0-0.7) 10^3/uL Absolute Basophils (0.0-0.2) 10^3/uL PT Pending INR Pending VBG Lactate (0.6-1.4) mmol/L Sodium (136-145) mmol/L Potassium (3.5-5.1) mmol/L Chloride (98-107) mmol/L Carbon Dioxide (21.0-32.0) mmol/L Anion Gap (3-11) mmol/L BUN (7-18) mg/dL Creatinine (0.55-1.02) mg/dL Est GFR (CKD-EPI 2020) (mL/min/1.73m2) Glucose (74-106) mg/dL Calcium (8.5-10.1) mg/dL Magnesium (1.8-2.4) mg/dL Total Bilirubin (0.2-1.0) mg/dL AST (15-37) U/L ALT (14-59) U/L Alkaline Phosphatase (46-116) U/L Troponin I Total Protein (6.4-8.2) g/dL Albumin (3.4-5.0) g/dL Lipase (16-77) U/L Urine Color Yellow (Yellow) Urine Clarity Clear (Clear) Urine pH 6.0 (5-8) Ur Specific [place] 1.025 (1.005-1.025) Urine Protein Negative (Neg-Trace) mg/dL Urine Ketones Negative (Negative) mg/dL Urine Blood Negative (Negative) Urine Nitrite Negative (Negative) Urine Bilirubin Negative (Negative) Urine Urobilinogen 0.2 (Up to 0.2) mg/dL Ur Leukocyte Esterase Negative (Negative) Urine Glucose Negative (Negative) mg/dL COVID-19 Source Nasal/Nares SARS-CoV-2 (PCR) Negative (Negative) 05/02/24 Range/Units 18:13 WBC 7.30 (4.4-10.8) 10^3/uL RBC 4.57 (3.93-5.22) 10^6/uL Hgb 13.8 (11.2-15.7) g/dL Hct 41.9 (36.0-46.0) % MCV 92 (80-95) fL MCH 30.2 (27.0-33.0) pg MCHC 32.9 (32.0-36.0) % RDW 12.9 (11.7-14.6) % Plt Count 244 (130-400) 10^3/uL MPV 10.0 (8.0-11.0) fL Immature Gran % 0.1 % Neutrophils % 48.4 % Lymphocytes % 40.4 % Monocytes % 7.8 % Eosinophils % 2.5 % Basophils % 0.8 % Nucleated RBC % 0.0 (0.0-0.3) % Absolute Neutrophils 3.53 (1.2-6.7) 10^3/uL Absolute Lymphocytes 2.95 (1.2-3.4) 10^3/uL Absolute Monocytes 0.57 (0.1-0.8) 10^3/uL Absolute Eosinophils 0.18 (0.0-0.7) 10^3/uL Absolute Basophils 0.06 (0.0-0.2) 10^3/uL PT INR VBG Lactate 1.7 H (0.6-1.4) mmol/L Sodium 141 (136-145) mmol/L Potassium 4.0 (3.5-5.1) mmol/L Chloride 104 (98-107) mmol/L Carbon Dioxide 28.3 (21.0-32.0) mmol/L Anion Gap 8.7 (3-11) mmol/L BUN 22 H (7-18) mg/dL Creatinine 1.0 (0.55-1.02) mg/dL Est GFR (CKD-EPI 2020) 59.86 (mL/min/1.73m2) Glucose 167 H (74-106) mg/dL Calcium 9.0 (8.5-10.1) mg/dL Magnesium 2.0 (1.8-2.4) mg/dL Total Bilirubin 0.32 (0.2-1.0) mg/dL AST 27 (15-37) U/L ALT 44 (14-59) U/L Alkaline Phosphatase 80 (46-116) U/L Troponin I Total Protein 8.0 (6.4-8.2) g/dL Albumin 4.1 (3.4-5.0) g/dL Lipase 35 (16-77) U/L Urine Color (Yellow) Urine Clarity (Clear) Urine pH (5-8) Ur Specific [place] (1.005-1.025) Urine Protein (Neg-Trace) mg/dL Urine Ketones (Negative) mg/dL Urine Blood (Negative) Urine Nitrite (Negative) Urine Bilirubin (Negative) Urine Urobilinogen (Up to 0.2) mg/dL Ur Leukocyte Esterase (Negative) Urine Glucose (Negative) mg/dL COVID-19 Source SARS-CoV-2 (PCR) (Negative) [id number] Documentation Fingerstick Glucose Start: 05/02/24 22:36 Freq: .Q6H Status: Active Protocol: Activity Type Activity Date Activity User E-sign Co-sign Detail Recorded Client Recorded Date Recorded By Document 05/03/24 05:55 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(3) [id number] 05/03/24 05:56 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(4) Intake and Output - 24 Hour Total 05/02/24 17:41 thru 05/03/24 06:50 Intake Total 1060 Output Total 950 Balance 110 Weight 165 kg Intake: IV 1060 Output: Gastric Drainage 850 Right Nare 750 Emesis 100 Other: Urine Appearance Clear Falls Risk Assessment History of Falls Previous History 05/03/24 06:20 Contributing Factors Impairments 05/03/24 06:20 Ambulatory Aids Independent 05/03/24 01:48 Tubes/Lines With any additional score 05/03/24 06:20 Gait Evaluation W/no contributing factors 05/03/24 06:20 Cognition No cognitive impairment 05/03/24 06:20 Fall Total Score 48 05/03/24 06:20 Level of Risk Moderate Risk 05/03/24 06:20 Problems (Last Updated 05/02/24 @ 22:36 by Jovany Pedro) Abdominal pain with vomiting (Acute) Small bowel obstruction (Acute) Stenosis colon (Chronic) Chronic constipation (Chronic) Obesity (Chronic) Diabetes mellitus (Chronic) Notes 05/03/24 06:37 Nursing Notes by Chen Friend Nursing Note: Pt vomiting 0520 after receiving pain meds, left room to get pt Zofran and saw Perri RN run into the room. Per Perri pts tele strip looked like Asystole. Perri came back with a printed strip of 3rd degree heard block. Dr. Cornejo paged at 0525 and was notified at 0528. Pt given zofran per MAR and VSS at that time. MD came to floor to speak with patient about 20 mins later and was placing orders for ICU transfer. Zoll pads placed on pt and pt transferred to ICU with all belongings at 0626. Initialized on 05/03/24 06:37 - END OF NOTE 05/03/24 06:36 Nursing Notes by Chen Friend Nursing Note: Pt transferred to ICU at 6:25, Bedside Report given to Perri RN. Initialized on 05/03/24 06:36 - END OF NOTE 05/03/24 00:50 (created 05/03/24 06:45) Nursing Notes by Chen Friend Nursing Note: Pt arrived to floor at 0010, when pt got up from stretcher to bed she stated im going to throw up pt then sat down and fell back in to the bed and lost consciousness. Sternal rubbed pt and she woke up immediately. Per pt this happens almost every time she vomits. Dr. Cornejo made aware and ordered a 500mL bolus, given per AUG. Initialized on 05/03/24 06:45 - END OF NOTE v v v v v v v v v Sending and/or Receiving Nurses: Please use comment section below to note any information pertinent to the patient hand-off not included above. Information / Comments: Per Bebeto ADAMS pt is a 73 yo Female, full code coming in today for abd pain. Pt with extensive hx of abd surgeries and SBO. Hx of colon stenosis, colostomy and IDDM. LBM 05/01 with diarrhea, N/V. Per Jacob CT is negative but pt being treated for SBO d/t presentation. Pt vomited 100mL in ED and and NGT was placed where they got out anopther 200mL. Denies CP/SOB. O2 sat 87-89% at times, afebrile. NSR on the monitor. Meds given: zofran, dilaudid, 1gm tylenol, compazine. Report received from: Bebeto ADAMS at 2312
[2024-05-03 07:42] LABS: INR 1.1 (0.9-1.1)
[2024-05-03 07:42] LABS: Troponin I < 4 ng/L (<or=51)
[2024-05-03 07:44] LABS: ALT 37 U/L (14-59); AST 21 U/L (15-37); Albumin 3.7 g/dL (3.4-5.0); Alkaline Phosphatase 71 U/L (46-116); Anion Gap 9.8 mmol/L (3-11); BUN 25 mg/dL (7-18); CO2 26.2 mmol/L (21.0-32.0); CREATININE 0.9 mg/dL (0.55-1.02); Calcium 8.6 mg/dL (8.5-10.1); Chloride 105 mmol/L (98-107); Estimated GFR 67.92 (mL/min/1.73m2); Glucose 150 mg/dL (74-106); Magnesium 1.8 mg/dL (1.8-2.4); Potassium 4.1 mmol/L (3.5-5.1); Sodium 141 mmol/L (136-145); Total Protein 7.3 g/dL (6.4-8.2)
[2024-05-03 07:49] LABS: Prothrombin Time 11.4 sec (9.1-11.1)
[2024-05-03] MEDS: Normal Saline Flush 10 ML SYR IVP ×4 (08:16→15:54)
[2024-05-03] MEDS: Budesonide/Formoterol 80/4.5 6.9 GM 60 PUFF INH IH ×2 (08:48→20:07)
[2024-05-03] MEDS: Losartan 50 MG TAB 100 MG PO (09:05)
[2024-05-03] MEDS: Isosorbide Mononitrate 60 MG TABCR PO (09:07)
[2024-05-03] MEDS: Aspirin E.C. 81 MG TABEC PO (09:07)
[2024-05-03] MEDS: amLODIPine 10 MG TAB PO (09:07)
--- NOTE | 2024-05-03 09:23 | PDOC.CMIN ---
Date of service: 05/03/24 Time of Service: 09:24 Care Management Initial Assmt Initial Assessment Reason for Hospitalization: abdominal pain Functional Status/Living Situation Patient Presentation: Bubba was sitting up in bed in the ICU when CM met with her. She was alert and oriented and easily engaged in conversation. Bubba was admitted with abdominal pain from an obstruction as well as syncope with a question of 3rd degree heart block. Bubba informed CM that she has had several bowel surgeries in the past couple of years and had an ostomy for a while. She explained that she would rather have a permanent colostomy than to continue to need hospitalization every few months for severe abdominal pain. She reported that she has expressed her wishes to the surgeon. Bubba lives in a single family home in [place] with her Joon. They have 3 children who all live in [place] and from whom they are estranged. She and Joon moved to [place] about 2 years ago to get away from the kids and the issues they were having. She is independent at baseline and does not receive any community services. Town of Residence: [place] Resides with: Spouse (Joon) Significant Other/Family: Out of area (children in [place] but are all estranged) Employment Status: Retired Instrumental Activities of Daily Living (ADLs): Independent Medications Medication Management: No Issues/Barriers identified Advance Directives Advance Directives: Do you have an Advance Directive: N 02/29/24 01:50 AD On File at [facility]: N 02/28/24 21:44 Date Asked 05/02/24 05/02/24 18:05 AD Date Reviewed COLST On File at [facility] COLST Date Scanned Code Status Resuscitation Status Full Code Portal Pt does not currently have a portal and education provided: No Insurance Coverage/Financial Issues Insurance: Medicare BC/BS other Care Team Visit Care Team Role Provider Type Nikolas Matos Primary Care Provider NON-[facility] STAFF PHYSICIAN Elvis Colon MD Other Providers [facility] STAFF PHYSICIAN KIMBERLY Ellison [facility] Provider [employer] Jovany Pedro Admit Provider NON-[facility] STAFF PHYSICIAN Attending Provider Discharge Potential Discharge Needs: PCP F/U Appt Anticipated Barriers to Discharge: None Identified Patient/Family Education Needs: Review discharge instructions, discuss Ask Me Three Transportation: Private vehicle Plan: Bubba will likely be discharged home with no new services. She will follow up with her community providers and plan of care and transport with family. CM will follow and continue to assess for discharge needs. PFSH All Active Problems (Updated 05/03/24 @ 06:58 by Jovany Pedro) Heart block AV third degree (Acute) Abdominal pain with vomiting (Acute) Small bowel obstruction (Acute) Stenosis colon (Chronic) SBO (small bowel obstruction) (Acute) Abdominal discomfort (Acute) Chronic constipation (Chronic) Arthritis (Acute) Back pain (Acute) Eye disorder (Acute) GERD (gastroesophageal reflux disease) (Chronic) Obesity (Chronic) Claustrophobia (Acute) Hyperlipidemia (Chronic) Hypertension (Chronic) Osteoporosis (Chronic) Headache (Acute) Asthma with COPD (chronic obstructive pulmonary disease) (Acute) Parkinsons disease (Chronic) 02/03/23 pt has a DBS implanted for this RH CAD (coronary artery disease) (Chronic) Vitamin D deficiency (Acute) Nausea and vomiting (Acute) Left upper quadrant abdominal pain (Acute) Diarrhea (Acute) Screening for colon cancer (Acute) Corns and callosities (Acute) Diabetes mellitus (Chronic) Cubital tunnel syndrome on left (Acute) Cubital tunnel syndrome on right (Acute) Trigger finger, left middle finger (Acute) Trigger finger, right middle finger (Acute) Left carpal tunnel syndrome (Acute) Right carpal tunnel syndrome (Acute) Medical History (Updated 05/03/24 @ 06:58 by Jovany Pedro) Abdominal pain with nonbilious vomiting Osteoarthritis of left knee mild Small bowel obstruction Diverticulitis PTSD (post-traumatic stress disorder) Light headedness Dermatitis Anxiety Petechial rash upper and lower extremities, chronic. Started in 2018. COPD (chronic obstructive pulmonary disease) Surgical History (Updated 03/02/24 @ 14:56 by Rae Harper) History of colonoscopy (~02/2024) History of colostomy reversal Social History Smoking/Tobacco Use Status: Former Tobacco Use Quit Date: 06/15/11 Smoking risk assessment performed?: Yes Alcohol Intake: never Drug use: Never Housing: house Do you feel safe at home: Yes Do you feel safe in your relationship?: Yes SDOH(Care Management) Screening Will the Patient Participate in the Screening?: Yes Do you worry about having a steady place to live?: no Problems where you live: no known problems In the past 12 months, have you had to go without electric, gas, oil or water in your home?: no Have you or anyone in your house had to go without enough food to eat?: no Has lack of transportation kept you from medical appointments or from doing things needed for daily living?: no Has anyone in your support network made you feel unsafe for any reason?: no
--- NOTE | 2024-05-03 10:35 | W.ED.FU ---
Date of service: 05/03/24 Time of Service: 10:35 Follow Up Plan: I sent an electronic message to the patient's inpatient hospitalist, Dr. Phillip Claudio, as radiology had over read the patient's CT from last night with concerns for possible early SBO. He planned to verify that a general surgery consult was in place.
--- NOTE | 2024-05-03 11:16 | SCONE_ITS ---
Date of service: 05/03/24 Time of Service: 11:16 Assessment and Plan Assessment and plan (1) Abdominal pain with vomiting: Status: Acute Assessment and plan: 73-year-old woman with acute on very chronic abdominal pain that is multifactorial and complex both subjectively as well as objectively with her history. Her abdominal exam is nondistended and she does not have any peritoneal signs. She is hemodynamically stable. Heart rate is normal. Blood pressure normal. Though she is in pain, she is able to easily carry on a conversation and have a discussion and give/provide detailed history. I do not think she needs to be in an ICU. Her pain is not colicky, her abdomen is not distended, and her imaging shows no evidence of bowel obstruction. I do not think there is a role for NG tube decompression and indeed, at the bedside, there is hardly anything out from the NG tube. I do NOT think that her chronic pain nor do I think her acute on chronic pain is related to obstruction issues. Her abdominal exam is very tender over 1 specific area and that is the prior colostomy reversal site. I wonder if some of her small intestine is perhaps caught or adherent into this wound closure - almost like a Phillips hernia. I reviewed her CT scan in careful detail. There is no free air no free fluid. While there is no IV contrast, I do not appreciate any fat stranding anywhere to suggest inflammation. I also do not see any abdominal wall defects or hernias anywhere. She has multiple anastomosis in the small bowel as well as a sigmoid anastomosis. Her colon is pretty decompressed throughout. I do not think she has a small bowel obstruction going on but she certainly does not have a colonic obstruction despite what we know about her colorectal anastomosis being stenotic and/or strictured. Her symptoms do not really sound like ischemia but it is plausible that she has some sort of chronic ischemia process going on in theory. I discussed this with the hospitalist and I do not feel strongly about a contrast study but there is really no downside and perhaps it will show us something that we do not know. Overall impression and recommendations: #This is a very chronic problem, well?recognized by the patient. # Aside from having some vomiting, there is really no clinical or radiographic evidence to suggest this is an obstructing process. Further, her pain is not colicky but rather constant. I am more suspicious that she has some sort of inflammatory enteritis in/at/around her small bowel anastomosis and/or the colostomy closure site. # By history she probably has a pretty hostile abdomen though there is no way to know without putting in a camera. There may be a role, in the elective?setting, for diagnostic laparoscopy to have a look at that left abdominal sidewall. If there are dense adhesions in that location, perhaps if they were freed up she may experience some symptom relief. Some degree of skepticism needs to remain in place however because she does endorse having chronic abdominal pain and chronic abdominal issues since she was in her 20s. I would be cautiously pessimistic about promising any symptom relief with more surgery. Even having a diverting colostomy made would not necessarily cure her symptoms and that would probably be the biggest risk of performing such a procedure. # I think removing her NG tube is reasonable considering it is having almost nothing out and there is really no indication for having it in the first place. I would give her clear liquids and see if she can tolerate them and when she is tolerating, she can be discharged home and follow-up outpatient for further management strategy and ideas. History of Present Illness Narrative: The patient is a 73-year-old woman with a complex history of both multiple abdominal surgeries as well as chronic abdominal pain. Separately, she says that she has spinal stimulators in place because of her active Parkinson's disease. She tells me that she has been dealing with abdominal pain since she was in her 20s. She has on and off pain and always has had on and off pain. She says sometimes the chronic pain is so severe she wants to end her life. Usually it lasts for a week or 2 and then slowly goes away. Most days she has abdominal pain. She gets waves of worsening attacks however. Last night and today is yet another 1 of those episodes. In her own words: This is nothing new. She had an NG tube placed in the emergency room. There has not been much out of it. She describes her issues as being many obstructions. Her last couple of admissions as well as cross-sectional imaging have not demonstrated obstruction. Her clinical description of her symptoms is that everything starts with pain. While she lives with daily pain, she will get a worsening attack of pain and then that is usually followed by severe vomiting. She is adamant that the pain comes first however. The pain is constant and always hurting. It is not intermittent and does not come and go. It just hurts. During the same time she reports that she has not passed any gas. She had a colonoscopy done on the last admission that showed stricture in her distal colon. She says her colon surgery was done for perforated diverticulitis. She said that she was dealing with the severe pain at the time of that surgery for a couple of months before she underwent surgery for it. She then says that she was told by her surgeon I have never seen anything like that inside of you. She says she was given a colostomy. She had multiple pieces of small bowel resected. She does not know why. She then had a colostomy reversal. She says ever since the colostomy reversal attacks of pain are always in the left upper side of her abdomen. While she always has abdominal pain. She says that left?sided pain is somewhat new and has been there ever since having her ostomy reversed. PFSH All Active Problems (Updated 05/03/24 @ 06:58 by Jovany Pedro) Heart block AV third degree (Acute) Abdominal pain with vomiting (Acute) Small bowel obstruction (Acute) Stenosis colon (Chronic) SBO (small bowel obstruction) (Acute) Abdominal discomfort (Acute) Chronic constipation (Chronic) Arthritis (Acute) Back pain (Acute) Eye disorder (Acute) GERD (gastroesophageal reflux disease) (Chronic) Obesity (Chronic) Claustrophobia (Acute) Hyperlipidemia (Chronic) Hypertension (Chronic) Osteoporosis (Chronic) Headache (Acute) Asthma with COPD (chronic obstructive pulmonary disease) (Acute) Parkinsons disease (Chronic) 02/03/23 pt has a DBS implanted for this RH CAD (coronary artery disease) (Chronic) Vitamin D deficiency (Acute) Nausea and vomiting (Acute) Left upper quadrant abdominal pain (Acute) Diarrhea (Acute) Screening for colon cancer (Acute) Corns and callosities (Acute) Diabetes mellitus (Chronic) Cubital tunnel syndrome on left (Acute) Cubital tunnel syndrome on right (Acute) Trigger finger, left middle finger (Acute) Trigger finger, right middle finger (Acute) Left carpal tunnel syndrome (Acute) Right carpal tunnel syndrome (Acute) Medical History (Updated 05/03/24 @ 06:58 by Jovany Pedro) Abdominal pain with nonbilious vomiting Osteoarthritis of left knee mild Small bowel obstruction Diverticulitis PTSD (post-traumatic stress disorder) Light headedness Dermatitis Anxiety Petechial rash upper and lower extremities, chronic. Started in 2018. COPD (chronic obstructive pulmonary disease) Surgical History (Updated 03/02/24 @ 14:56 by Rae Harper) History of colonoscopy (~02/2024) History of colostomy reversal Social History Smoking/Tobacco Use Status: Former Tobacco Use Quit Date: 06/15/11 Smoking risk assessment performed?: Yes Alcohol Intake: never Drug use: Never Housing: house Do you feel safe at home: Yes Do you feel safe in your relationship?: Yes Exam Narrative Exam Narrative: Gen: Non-toxic, comfortable and interactive. She is able to give a clear history and does not seem to be in any distress whatsoever. Neuro: Alert and oriented x3 Psych: Good mood and affect. Good insight and understanding into condition. Chest: Non-labored breathing, no wheezing, no visible shortness of breath. Heart: Regular rate and rhythm Abdomen: Soft, non-distended, no peritoneal signs. She has focal tenderness to examination in the left hemiabdomen, just lateral to the rectus muscles. Nowhere else is tender. She has a midline surgical scar, she has a subcostal surgical scar, she has a left lower quadrant surgical scar. No palpable hernias. NG tube: Scant output at the bedside - gastric contents Results Last Vital Signs Temp 100.2 F H 05/03/24 06:20 Pulse 87 05/03/24 10:52 Resp 17 05/03/24 10:52 BP 122/55 L 05/03/24 10:52 Pulse Ox 90 L 05/03/24 10:00 Labs 05/03/24 06:42 05/03/24 06:42 Labs: Laboratory Results - last 24 hr 05/02/24 05/02/24 05/02/24 18:13 20:00 22:45 WBC 7.30 RBC 4.57 Hgb 13.8 Hct 41.9 MCV 92 MCH 30.2 MCHC 32.9 RDW 12.9 Plt Count 244 MPV 10.0 Immature Gran % 0.1 Neutrophils % 48.4 Lymphocytes % 40.4 Monocytes % 7.8 Eosinophils % 2.5 Basophils % 0.8 Nucleated RBC % 0.0 Absolute Neutrophils 3.53 Absolute Lymphocytes 2.95 Absolute Monocytes 0.57 Absolute Eosinophils 0.18 Absolute Basophils 0.06 PT INR VBG Lactate 1.7 H Sodium 141 Potassium 4.0 Chloride 104 Carbon Dioxide 28.3 Anion Gap 8.7 BUN 22 H Creatinine 1.0 Est GFR (CKD-EPI 2020) 59.86 Glucose 167 H Calcium 9.0 Magnesium 2.0 Total Bilirubin 0.32 AST 27 ALT 44 Alkaline Phosphatase 80 Troponin I Total Protein 8.0 Albumin 4.1 Lipase 35 Urine Color Yellow Urine Clarity Clear Urine pH 6.0 Ur Specific [place] 1.025 Urine Protein Negative Urine Ketones Negative Urine Blood Negative Urine Nitrite Negative Urine Bilirubin Negative Urine Urobilinogen 0.2 Ur Leukocyte Esterase Negative Urine Glucose Negative COVID-19 Source Nasal/Nares SARS-CoV-2 (PCR) Negative 05/03/24 05/03/24 06:42 07:05 WBC 6.77 RBC 4.39 Hgb 13.5 Hct 40.7 MCV 93 MCH 30.8 MCHC 33.2 RDW 12.9 Plt Count MPV Immature Gran % Neutrophils % Lymphocytes % Monocytes % Eosinophils % Basophils % Nucleated RBC % Absolute Neutrophils Absolute Lymphocytes Absolute Monocytes Absolute Eosinophils Absolute Basophils PT 11.4 H INR 1.1 VBG Lactate Sodium 141 Potassium 4.1 Chloride 105 Carbon Dioxide 26.2 Anion Gap 9.8 BUN 25 H Creatinine 0.9 Est GFR (CKD-EPI 2020) 67.92 Glucose 150 H Calcium 8.6 Magnesium 1.8 Total Bilirubin 0.60 AST 21 ALT 37 Alkaline Phosphatase 71 Troponin I < 4 Total Protein 7.3 Albumin 3.7 Lipase Urine Color Urine Clarity Urine pH Ur Specific [place] Urine Protein Urine Ketones Urine Blood Urine Nitrite Urine Bilirubin Urine Urobilinogen Ur Leukocyte Esterase Urine Glucose COVID-19 Source SARS-CoV-2 (PCR)
[2024-05-03 11:28] LABS: Troponin I 4 ng/L (<or=51)
[2024-05-03] MEDS: HYDROmorphone 1 MG/ML SYR IVP ×3 (12:26→19:23)
--- NOTE | 2024-05-03 16:47 | W.PM.PROGNOT ---
Date of Service Date of service: 05/03/24 Time of Service: 16:47 Assessment and Plan Assessment and plan (1) Abdominal pain with vomiting: Start date: 05/02/24 Status: Acute Assessment and plan: Consult from general surgery has been placed below. I will downgrade her to the [facility] floor. I will also order serial labs in the a.m. Discussed the case with nursing staff and they are recommendation is to clamp the tube and then if there is little output that we can DC it. 73-year-old woman with acute on very chronic abdominal pain that is multifactorial and complex both subjectively as well as objectively with her history. Her abdominal exam is nondistended and she does not have any peritoneal signs. She is hemodynamically stable. Heart rate is normal. Blood pressure normal. Though she is in pain, she is able to easily carry on a conversation and have a discussion and give/provide detailed history. I do not think she needs to be in an ICU. Her pain is not colicky, her abdomen is not distended, and her imaging shows no evidence of bowel obstruction. I do not think there is a role for NG tube decompression and indeed, at the bedside, there is hardly anything out from the NG tube. I do NOT think that her chronic pain nor do I think her acute on chronic pain is related to obstruction issues. Her abdominal exam is very tender over 1 specific area and that is the prior colostomy reversal site. I wonder if some of her small intestine is perhaps caught or adherent into this wound closure - almost like a Phillips hernia. I reviewed her CT scan in careful detail. There is no free air no free fluid. While there is no IV contrast, I do not appreciate any fat stranding anywhere to suggest inflammation. I also do not see any abdominal wall defects or hernias anywhere. She has multiple anastomosis in the small bowel as well as a sigmoid anastomosis. Her colon is pretty decompressed throughout. I do not think she has a small bowel obstruction going on but she certainly does not have a colonic obstruction despite what we know about her colorectal anastomosis being stenotic and/or strictured. Her symptoms do not really sound like ischemia but it is plausible that she has some sort of chronic ischemia process going on in theory. I discussed this with the hospitalist and I do not feel strongly about a contrast study but there is really no downside and perhaps it will show us something that we do not know. Overall impression and recommendations: #This is a very chronic problem, well?recognized by the patient. # Aside from having some vomiting, there is really no clinical or radiographic evidence to suggest this is an obstructing process. Further, her pain is not colicky but rather constant. I am more suspicious that she has some sort of inflammatory enteritis in/at/around her small bowel anastomosis and/or the colostomy closure site. # By history she probably has a pretty hostile abdomen though there is no way to know without putting in a camera. There may be a role, in the elective?setting, for diagnostic laparoscopy to have a look at that left abdominal sidewall. If there are dense adhesions in that location, perhaps if they were freed up she may experience some symptom relief. Some degree of skepticism needs to remain in place however because she does endorse having chronic abdominal pain and chronic abdominal issues since she was in her 20s. I would be cautiously pessimistic about promising any symptom relief with more surgery. Even having a diverting colostomy made would not necessarily cure her symptoms and that would probably be the biggest risk of performing such a procedure. # I think removing her NG tube is reasonable considering it is having almost nothing out and there is really no indication for having it in the first place. I would give her clear liquids and see if she can tolerate them and when she is tolerating, she can be discharged home and follow-up outpatient for further management strategy and ideas. (2) Heart block AV third degree: Start date: 05/02/24 Status: Acute Assessment and plan: Patient has not had diagnosis of third-degree heart block and this appears to be depressed incidents. She does have syncopal episodes with emesis at home which are not observed with cardiac monitoring. He may be at risk for sustained heart block and some of her symptoms may be associated with dysrhythmia. This will need to be evaluated by cardiology and surgery. For now she will have external pacemaker pads in place with consultation with [facility] cardiology once further lab is obtained. 05/03/2024 Patient had 1 run of third-degree heart block but since then her telemetry has been quite stable. I did not consult cardiology today and we will monitor her throughout her stay. She has any other abnormalities in her rhythms we will certainly consider consultation at that time (3) CAD (coronary artery disease): Status: Chronic Assessment and plan: Status post cardiac catheterization 2020 in [place] with 30% lesion of RCA not intervened upon. On medical therapy and has been overall stable with no history of previous NE. Qualifiers: Coronary Disease-Associated Artery/Lesion type: [place] artery [place] vs. transplanted heart: [place] heart Associated angina: without angina Qualified Code(s): I25.10 - Atherosclerotic heart disease of [place] coronary artery without angina pectoris (4) Stenosis colon: Status: Chronic Assessment and plan: Patient has known stenosis at 20 cm from the anus by colonoscopy from previous reanastomosis of sigmoid colon. Surgery will follow-up. 05/03/2024 Please review #1 above (5) Chronic constipation: Status: Chronic Assessment and plan: Secondary to sigmoid obstruction according to the patient. Getting a tolerance should be given. (6) Diabetes mellitus: Status: Chronic Assessment and plan: Hold outpatient therapy with glucometers before meals and at bedtime and moderate insulin dosing per sliding scale. 05/03/2024 Do entertain the thought of some of her discomfort being from possible diabetic gastroparesis. Will order an A1c to see how her 90-day glucose control has been Qualifiers: Diabetes mellitus type: type 2 Diabetes mellitus intermediate designer insulin use: without intermediate designer use Diabetes mellitus complication status: without complication Qualified Code(s): E11.9 - Type 2 diabetes mellitus without complications (7) Hypertension: Status: Chronic Assessment and plan: Continue antihypertensive but hold metoprolol with event of third-degree heart block. 05/03/2024 Patient's current blood pressure is 149/65 with a heart rate of 97. I will restart her metoprolol but keep her on the cardiac catheterization technologist Qualifiers: Hypertension type: primary hypertension Qualified Code(s): I10 - Essential (primary) hypertension (8) Hyperlipidemia: Status: Chronic Assessment and plan: Associated with CAD and diabetes, continue atorvastatin. Qualifiers: Hyperlipidemia type: mixed hyperlipidemia Qualified Code(s): E78.2 - Mixed hyperlipidemia (9) COPD (chronic obstructive pulmonary disease): Assessment and plan: Continue inhaler therapy while hospitalized. Qualifiers: COPD type: chronic bronchitis Chronic bronchitis type: simple Qualified Code(s): J41.0 - Simple chronic bronchitis (10) Parkinsons disease: Status: Chronic Assessment and plan: With implanted stimulators to be monitored by neurology at [facility]. Qualifiers: Dyskinesia presence: without dyskinesia Fluctuating manifestations: without fluctuating manifestations Qualified Code(s): G20.A1 - Parkinson's disease without dyskinesia, without mention of fluctuations Subjective Subjective Interval history since last seen: Patient seen and examined in her room this morning. Patient was still complaining of significant abdominal pain. Plan of care was discussed with the patient as well as with the bedside nurse. I also spoke in consultation with the general surgeon. Exam Narrative Exam Narrative: Gen: Non-toxic, comfortable and interactive. She is able to give a clear history and does not seem to be in any distress whatsoever. Neuro: Alert and oriented x3 Psych: Good mood and affect. Good insight and understanding into condition. Chest: Non-labored breathing, no wheezing, no visible shortness of breath. Heart: Regular rate and rhythm Abdomen: Soft, non-distended, no peritoneal signs. She has focal tenderness to examination in the left hemiabdomen, just lateral to the rectus muscles. Nowhere else is tender. She has a midline surgical scar, she has a subcostal surgical scar, she has a left lower quadrant surgical scar. No palpable hernias. NG tube: Scant output at the bedside - gastric contents Objective Last Vital Signs Temp 36.5 C 05/03/24 15:55 Pulse 97 H 05/03/24 16:01 Resp 20 05/03/24 16:10 BP 149/65 H 05/03/24 16:01 Pulse Ox 93 05/03/24 16:10 Laboratory Results - last 24 hr 05/02/24 05/02/24 05/02/24 18:13 20:00 22:45 WBC 7.30 RBC 4.57 Hgb 13.8 Hct 41.9 MCV 92 MCH 30.2 MCHC 32.9 RDW 12.9 Plt Count 244 MPV 10.0 Immature Gran % 0.1 Neutrophils % 48.4 Lymphocytes % 40.4 Monocytes % 7.8 Eosinophils % 2.5 Basophils % 0.8 Nucleated RBC % 0.0 Absolute Neutrophils 3.53 Absolute Lymphocytes 2.95 Absolute Monocytes 0.57 Absolute Eosinophils 0.18 Absolute Basophils 0.06 PT INR VBG Lactate 1.7 H Sodium 141 Potassium 4.0 Chloride 104 Carbon Dioxide 28.3 Anion Gap 8.7 BUN 22 H Creatinine 1.0 Est GFR (CKD-EPI 2020) 59.86 Glucose 167 H Calcium 9.0 Magnesium 2.0 Total Bilirubin 0.32 AST 27 ALT 44 Alkaline Phosphatase 80 Troponin I Total Protein 8.0 Albumin 4.1 Lipase 35 Urine Color Yellow Urine Clarity Clear Urine pH 6.0 Ur Specific [place] 1.025 Urine Protein Negative Urine Ketones Negative Urine Blood Negative Urine Nitrite Negative Urine Bilirubin Negative Urine Urobilinogen 0.2 Ur Leukocyte Esterase Negative Urine Glucose Negative COVID-19 Source Nasal/Nares SARS-CoV-2 (PCR) Negative 05/03/24 05/03/24 05/03/24 06:42 07:05 10:55 WBC 6.77 RBC 4.39 Hgb 13.5 Hct 40.7 MCV 93 MCH 30.8 MCHC 33.2 RDW 12.9 Plt Count MPV Immature Gran % Neutrophils % Lymphocytes % Monocytes % Eosinophils % Basophils % Nucleated RBC % Absolute Neutrophils Absolute Lymphocytes Absolute Monocytes Absolute Eosinophils Absolute Basophils PT 11.4 H INR 1.1 VBG Lactate Sodium 141 Potassium 4.1 Chloride 105 Carbon Dioxide 26.2 Anion Gap 9.8 BUN 25 H Creatinine 0.9 Est GFR (CKD-EPI 2020) 67.92 Glucose 150 H Calcium 8.6 Magnesium 1.8 Total Bilirubin 0.60 AST 21 ALT 37 Alkaline Phosphatase 71 Troponin I < 4 4 Total Protein 7.3 Albumin 3.7 Lipase Urine Color Urine Clarity Urine pH Ur Specific [place] Urine Protein Urine Ketones Urine Blood Urine Nitrite Urine Bilirubin Urine Urobilinogen Ur Leukocyte Esterase Urine Glucose COVID-19 Source SARS-CoV-2 (PCR) Time Spent with Patient Time Spent with Patient: 35-49 minutes Time was spent: preparing to see the patient(eg.review tests), obtaining and/or reviewing separately otained hiistory, ordering medications,tests, procedures, referring, communicating with other health healthcare customer service, indepentently interpreting results, counseling the patient and care coordination
--- NOTE | 2024-05-03 16:55 | CHAPLAIN ---
Kae was resting bed when I visited. She said she has had a conversation with her surgeon about having a colostomy because she is having a lot of pain and multiple hospitalizations. She said she hasn't slept in four days because of the pain. She and her Joon moved to [place] two years ago from [place]. Kae has three children in [place], from a first marriage, that Joon helped raise. She is not in contact with any of them and told me that they have been involved in drugs and her daughter was convicted of arson. She is touch with her oldest grandson in [place], and his family and she showed me photos of them. Kae has a parrot and dog. Joon has a long term job driving a milk truck. All I need is my , my dog, my bird and God, Kae told me. She said she has told Joon not to visit as he's working and loves his job. They live in [place] and Kae said she prefers to come to [facility] over [facility] and said she has received very good care here.
[2024-05-03] MEDS: diphenhydrAMINE 25 MG CAP PO (18:47)
[2024-05-03] MEDS: traZODone 100 MG TAB PO (19:23)
[2024-05-03] MEDS: Melatonin 3 MG TAB 6 MG PO (19:24)
[2024-05-03] MEDS: Atorvastatin 20 MG TAB PO (19:24)
[2024-05-04] VITALS (65 sets, daily range): BP systolic 117–145; BP diastolic 55–78; PULSE 72–104; RESP 11–96; TEMP 36.7–37.5; O2SAT 17–99
[2024-05-04] MEDS: HYDROmorphone 1 MG/ML SYR IVP ×3 (02:27→08:57)
[2024-05-04] MEDS: Levalbuterol HFA 15 GM INH 2 PUFF IH ×4 (05:17→23:47)
[2024-05-04 05:54] LABS: Lactate 1.6 mmol/L (0.6-1.4)
[2024-05-04 05:55] LABS: HCT 37.2 % (36.0-46.0); MCH 30.5 pg (27.0-33.0); MCHC 32.3 % (32.0-36.0); MCV 95 fL (80-95); Platelet Count 169 10^3/uL (130-400); RBC 3.93 10^6/uL (3.93-5.22); RDW-SD 45.4 fL; WBC 5.76 10^3/uL (4.4-10.8)
[2024-05-04] MEDS: Heparin 5,000 UNITS/ML VIAL 5000 UNITS SC ×3 (05:56→21:35)
[2024-05-04] MEDS: Lactated Ringers 1,000 ML 125 ML IV (05:57)
[2024-05-04 06:11] LABS: ALT 29 U/L (14-59); AST 17 U/L (15-37); Albumin 3.3 g/dL (3.4-5.0); Alkaline Phosphatase 63 U/L (46-116); Anion Gap 5.7 mmol/L (3-11); BUN 11 mg/dL (7-18); Bilirubin, Total 0.65 mg/dL (0.2-1.0); CO2 31.3 mmol/L (21.0-32.0); CREATININE 0.9 mg/dL (0.55-1.02); Calcium 8.3 mg/dL (8.5-10.1); Chloride 104 mmol/L (98-107); Estimated GFR 67.92 (mL/min/1.73m2); Glucose 140 mg/dL (74-106); Hemoglobin A1C 7.7 % (<5.7); Magnesium 1.8 mg/dL (1.8-2.4); Potassium 3.7 mmol/L (3.5-5.1); Sodium 141 mmol/L (136-145); Total Protein 6.7 g/dL (6.4-8.2)
[2024-05-04] MEDS: Budesonide/Formoterol 80/4.5 6.9 GM 60 PUFF INH IH ×2 (07:43→20:22)
[2024-05-04] MEDS: Losartan 50 MG TAB 100 MG PO (07:59)
[2024-05-04] MEDS: amLODIPine 10 MG TAB PO (07:59)
[2024-05-04] MEDS: Metoprolol CR 50 MG TABCR PO (07:59)
[2024-05-04] MEDS: Normal Saline Flush 10 ML SYR IVP ×2 (08:00)
[2024-05-04] MEDS: Aspirin E.C. 81 MG TABEC PO (08:00)
[2024-05-04] MEDS: Isosorbide Mononitrate 60 MG TABCR PO (08:00)
--- NOTE | 2024-05-04 08:01 | PGE_ITS ---
Date of Service Date of service: 05/04/24 Time of Service: 08:01 Assessment and Plan Assessment and plan (1) Abdominal pain with vomiting: Status: Acute Assessment and plan: 73-year-old woman with a complex medical and surgical history as well as long?standing and chronic abdominal pain that is truly of unknown etiology. There really has not been any objective evidence that she has obstruction(s), both in the past or currently. Based off of her very?focal and constant symptoms that are reproducible to examination rather than simply subjective, I am inclined to think of something that is more of an inflammatory process than a mechanical, obstructing process. Obstruction or partial obstruction symptoms should be a colicky discomfort that comes and goes and would be subjective. Abdominal examination in an obstruction picture is typically not tender unless the bowel is ischemic and dying. This woman's tenderness is really minimally subjective and mostly objective to examination. The pain is IN proportion to exam(opposite of mesenteric ischemia). Considering that abdominal examination reproduces the symptoms and that the tender area is palpable, an inflammatory process such as chronic interloop fistulas and/or adherence to the fascial closure (Phillips hernia type) is something that is more concerning and likely to me. At this time there is nothing acutely different about this chronic process and there is not going to be any emergent surgical intervention or exploration. I recommended to her that we continue the outpatient workup and planning which may include diagnostic exploration with laparoscopy and may include further imaging attempts to better delineate what the problem actually is. Her lab work is essentially normal. She has not vomited in 24 hours. Recommendations: Remove NG tube, trial clear liquids MRI of the abdomen could be really helpful actually. Will discuss with hospitalist team. Surgery otherwise signing off. Call us back as needed. Subjective Subjective Interval history since last seen: Overnight no noticeable changes or events. Her clinical situation is essentially unchanged. The pain remains. It is neither worse but not really better. NG tube did not have any significant output yesterday and it was left clamped all night and she tolerated this without any nausea or vomiting. She does not think she has passed any gas yet and has not had a bowel movement. She is urinating adequately. Her biggest concern this morning is about pain medication and what she can take on a regular basis when she gets home. Exam Narrative Exam Narrative: Gen: Non-toxic, she is comfortable and interactive. She does not appear to be sick or in any distress whatsoever. Neuro: Alert and oriented x3 Psych: Good mood and affect. Good insight and understanding into condition. Chest: Non-labored breathing, no wheezing, no visible shortness of breath. Heart: Regular Abdomen: Soft, no significant distention, focal tenderness remains in the left hemiabdomen only. No peritoneal signs. The right side is completely soft and not tender. Objective Last Vital Signs Temp 97.7 F 05/03/24 15:55 Pulse 98 H 05/04/24 06:56 Resp 15 05/04/24 06:56 BP 145/71 H 05/04/24 06:56 Pulse Ox 93 05/04/24 06:56 Laboratory Results - last 24 hr 05/03/24 05/03/24 05/04/24 06:42 10:55 05:35 WBC Cancelled RBC Cancelled Hgb Cancelled Hct Cancelled MCV Cancelled MCH Cancelled MCHC Cancelled RDW Cancelled Plt Count Cancelled MPV Cancelled VBG Lactate Sodium Potassium Chloride Carbon Dioxide Anion Gap BUN Creatinine Est GFR (CKD-EPI 2020) Glucose Hemoglobin A1c Calcium Magnesium Total Bilirubin AST ALT Alkaline Phosphatase Troponin I 4 Total Protein Albumin 05/04/24 05/04/24 05:45 19:00 WBC 5.76 RBC 3.93 Hgb 12.0 Hct 37.2 MCV 95 MCH 30.5 MCHC 32.3 RDW 13.0 Plt Count 169 MPV 10.0 VBG Lactate 1.6 H Sodium 141 Cancelled Potassium 3.7 Cancelled Chloride 104 Cancelled Carbon Dioxide 31.3 Cancelled Anion Gap 5.7 Cancelled BUN 11 Cancelled Creatinine 0.9 Cancelled Est GFR (CKD-EPI 2020) 67.92 Cancelled Glucose 140 H Cancelled Hemoglobin A1c 7.7 H Calcium 8.3 L Cancelled Magnesium 1.8 Total Bilirubin 0.65 Cancelled AST 17 Cancelled ALT 29 Cancelled Alkaline Phosphatase 63 Cancelled Troponin I Total Protein 6.7 Cancelled Albumin 3.3 L Cancelled Time Spent with Patient Time Spent with Patient: 25-34 minutes Time was spent: preparing to see the patient(eg.review tests), obtaining and/or reviewing separately otained hiistory, ordering medications,tests, procedures, referring, communicating with other health home health care provider, indepentently interpreting results, counseling the patient and care coordination
--- NOTE | 2024-05-04 08:39 | PDOC.CMPRO ---
Date of service: 05/04/24 Time of Service: 08:40 Care Management Progress Note Progress Note Text Progress Note Text: Bubba was sitting up in bed when CM met with her. She has been moved out of the ICU and stated that she is feeling somewhat better. She continues to have abdominal pain and had requested pain medication. Bubba stated that it was not due for another 1/2 hour and she was quite uncomfortable. Bubba informed CM that she was not clear about her plan of care. She originally requested a colostomy so that she would not continue to get obstructions with the associated pain. She was under the impression it would be done this admission but that does not appear to be the case. Per the surgeon's note, her workup will be continued on an outpatient basis and may include diagnostic laparoscopic surgery at some point. Discharge Potential Discharge Needs: PCP F/U Appt Anticipated Barriers to Discharge: None Identified Patient/Family Education Needs: Review discharge instructions, discuss Ask Me Three Transportation: Private vehicle Plan: Bubba will likely be discharged home with no new services. She will follow up with her community providers and plan of care and transport with family. CM will follow and continue to assess for discharge needs. SDOH(Care Management) Screening Will the Patient Participate in the Screening?: Yes Do you worry about having a steady place to live?: no Problems where you live: no known problems In the past 12 months, have you had to go without electric, gas, oil or water in your home?: no Have you or anyone in your house had to go without enough food to eat?: no Has lack of transportation kept you from medical appointments or from doing things needed for daily living?: no Has anyone in your support network made you feel unsafe for any reason?: no
[2024-05-04] MEDS: diphenhydrAMINE 25 MG CAP PO (09:12)
--- NOTE | 2024-05-04 12:23 | PGE_ITS ---
Date of Service Date of service: 05/04/24 Time of Service: 12:24 Assessment and Plan Assessment and plan (1) Abdominal pain with vomiting: Start date: 05/02/24 Status: Acute Assessment and plan: -please see general surgery consult for complete details -patients chronic and worsening acute pain not thought to be due to obstruction -had in NGT, clamped PM 05/03, removed AM 05/04, trailing liquid PO intake -Surgery rec MRI,but patient unable to have it done due to DBS -Aside from having some vomiting, there is really no clinical or radiographic evidence to suggest this is an obstructing process hence why NGT has been removed (2) Heart block AV third degree: Start date: 05/02/24 Status: Acute Assessment and plan: -Patient has not had diagnosis of third-degree heart block and this appears to be depressed incidents. -She does have syncopal episodes with emesis at home which are not observed with cardiac monitoring. -may be at risk for sustained heart block and some of her symptoms may be associated with dysrhythmia. -previous physician noted 1 run of third-degree heart block on 05/03 but since then her telemetry has been quite stable and did not consult cardiology -will consult Cardiology tomorrow morning 05/05 for further recommendations (3) CAD (coronary artery disease): Status: Chronic Assessment and plan: -Status post cardiac catheterization 2020 in [place] with 30% lesion of RCA not intervened upon. -On medical therapy and has been overall stable with no history of previous MN. Qualifiers: Coronary Disease-Associated Artery/Lesion type: [place] artery [place] vs. transplanted heart: [place] heart Associated angina: without angina Qualified Code(s): I25.10 - Atherosclerotic heart disease of [place] coronary artery without angina pectoris (4) Stenosis colon: Status: Chronic Assessment and plan: -Patient has known stenosis at 20 cm from the anus by colonoscopy from previous reanastomosis of sigmoid colon (5) Chronic constipation: Status: Chronic Assessment and plan: -Secondary to sigmoid obstruction according to the patient. Getting a tolerance should be given. (6) Diabetes mellitus: Status: Chronic Assessment and plan: -Hold outpatient therapy with glucometers before meals and at bedtime and moderate insulin dosing per sliding scale. Qualifiers: Diabetes mellitus type: type 2 Diabetes mellitus care home insulin use: without keno terminal operator use Diabetes mellitus complication status: without complication Qualified Code(s): E11.9 - Type 2 diabetes mellitus without complications (7) Hypertension: Status: Chronic Assessment and plan: -Continue antihypertensive -home metoprolol was held briefly, but restarted on 05/03 Qualifiers: Hypertension type: primary hypertension Qualified Code(s): I10 - Essential (primary) hypertension (8) Hyperlipidemia: Status: Chronic Assessment and plan: -Associated with CAD and diabetes, continue atorvastatin. Qualifiers: Hyperlipidemia type: mixed hyperlipidemia Qualified Code(s): E78.2 - Mixed hyperlipidemia (9) COPD (chronic obstructive pulmonary disease): Assessment and plan: -Continue inhaler therapy while hospitalized. Qualifiers: COPD type: chronic bronchitis Chronic bronchitis type: simple Qualified Code(s): J41.0 - Simple chronic bronchitis (10) Parkinsons disease: Status: Chronic Assessment and plan: -With implanted stimulators to be monitored by neurology at [facility]. Qualifiers: Dyskinesia presence: without dyskinesia Fluctuating manifestations: without fluctuating manifestations Qualified Code(s): G20.A1 - Parkinson's disease without dyskinesia, without mention of fluctuations Subjective Subjective Interval history since last seen: Patient states that she is feeling a little bit better today and is encouraged by having her NG tube removed and being able to trial some p.o. intake. Exam Narrative Exam Narrative: Well-appearing older female sitting up in the chair no acute distress, ANO x 4, heart regular rhythm, lungs clear to auscultation bilaterally, abdomen soft with very mild diffuse tenderness to deep palpation, no guarding or rebound Objective Last Vital Signs Temp 98.4 F 05/04/24 08:02 Pulse 97 H 05/04/24 08:02 Resp 16 05/04/24 08:25 BP 132/60 05/04/24 08:02 Pulse Ox 89 L 05/04/24 11:06 Laboratory Results - last 24 hr 05/04/24 05/04/24 05/04/24 05:35 05:45 19:00 WBC Cancelled 5.76 RBC Cancelled 3.93 Hgb Cancelled 12.0 Hct Cancelled 37.2 MCV Cancelled 95 MCH Cancelled 30.5 MCHC Cancelled 32.3 RDW Cancelled 13.0 Plt Count Cancelled 169 MPV Cancelled 10.0 VBG Lactate 1.6 H Sodium 141 Cancelled Potassium 3.7 Cancelled Chloride 104 Cancelled Carbon Dioxide 31.3 Cancelled Anion Gap 5.7 Cancelled BUN 11 Cancelled Creatinine 0.9 Cancelled Est GFR (CKD-EPI 2020) 67.92 Cancelled Glucose 140 H Cancelled Hemoglobin A1c 7.7 H Calcium 8.3 L Cancelled Magnesium 1.8 Total Bilirubin 0.65 Cancelled AST 17 Cancelled ALT 29 Cancelled Alkaline Phosphatase 63 Cancelled Total Protein 6.7 Cancelled Albumin 3.3 L Cancelled Time Spent with Patient Time Spent with Patient: >50 minutes Time was spent: preparing to see the patient(eg.review tests), obtaining and/or reviewing separately otained hiistory, ordering medications,tests, procedures, referring, communicating with other health career services officer, indepentently interpreting results, counseling the patient and care coordination
[2024-05-04] MEDS: HYDROmorphone 2 MG TAB 1 MG PO ×2 (12:32→16:40)
--- NOTE | 2024-05-04 14:21 | W.PC.ACHO ---
Registration Status: Primary Language: Preferred Language: ED Information & Data Chief Complaint Abd Prob 05/02/24 21:55 Chief Complaint Abd Prob 05/02/24 17:55 Triage Note Patient here with severe 05/02/24 17:41 abdominal pain. Pain started this afternoon. She thinks it is another bowel blockage . Patient was in the hospital in Mar 08 with blockage. nausea and vomiting and chills. Last BM was two days ago both formed and diarrhea. Medical / Surgical History (Last Updated 05/02/24 @ 22:36 by Jovany Pedro) Abdominal pain with nonbilious vomiting Osteoarthritis of left knee Small bowel obstruction Diverticulitis PTSD (post-traumatic stress disorder) Light headedness Dermatitis Anxiety Petechial rash COPD (chronic obstructive pulmonary disease) (Last Updated 03/02/24 @ 14:56 by Rae Harper) History of colonoscopy (~02/2024) History of colostomy reversal Most Recent Vital Signs Temperature 37.3 C 05/04/24 13:00 Temperature Source Temporal Artery Scan 05/04/24 13:00 Pulse 99 H 05/04/24 13:00 Pulse Rhythm Regular 05/03/24 01:00 Pulse Strength Normal 05/02/24 22:25 Pulse 99 H 05/04/24 06:56 Respiratory Rate 16 05/04/24 08:25 Respiratory Effort Normal 05/03/24 06:20 Respiratory Depth Normal 05/03/24 06:20 Respiratory Pattern Normal 05/03/24 06:20 Blood Pressure 118/64 05/04/24 13:00 Blood Pressure Mean 91 05/04/24 06:56 Blood Pressure Position Supine 05/03/24 06:20 Pulse Oximetry 88 L 05/04/24 13:00 Oxygen Delivery Method Nasal Cannula 05/04/24 13:00 Oxygen Flow Rate 1 05/04/24 13:00 Pain Level 9 05/04/24 12:00 Allergies alprazolam (From Xanax) Allergy (Severe, Verified 05/02/24 17:45) hives codeine Allergy (Severe, Verified 05/02/24 17:45) throat swells shut meperidine (From Demerol) Allergy (Severe, Verified 05/02/24 17:45) Hives Penicillins Allergy (Severe, Verified 05/02/24 17:45) throat swells shut butorphanol (From Stadol) Allergy (Intermediate, Verified 05/02/24 17:45) Anaphylaxis Iodinated Contrast Media Allergy (Intermediate, Verified 05/02/24 17:45) rash, nausea, vomiting ketorolac (From Toradol) Adverse Reaction (Intermediate, Verified 05/02/24 17:45) Nausea IV Contrast Allergy (Severe, Uncoded 05/02/24 17:45) Skin Rash Active Medications Generic Name Dose Route Start Last Admin Trade Name Freq PRN Reason Stop Dose Admin Amlodipine Besylate 10 mg 05/03/24 08:30 05/04/24 07:59 Amlodipine 10 Mg Tab PO 10 mg DAILY DAMEON Administration Aspirin 81 mg 05/03/24 08:30 05/04/24 08:00 Aspirin E.C. 81 Mg Tabec PO 81 mg DAILY DAMEON Administration Atorvastatin Calcium 20 mg 05/03/24 20:00 05/03/24 19:24 Atorvastatin 20 Mg Tab PO 20 mg QPM DAMEON Administration Budesonide/Formoterol Fumarate 2 puff 05/03/24 08:30 05/04/24 07:43 Budesonide/Formoterol 80/4.5 6.9 Gm 60 Puff Inh IH 2 puffs BID DAMEON Administration Diphenhydramine HCl 25 mg 05/03/24 00:17 05/03/24 18:47 Diphenhydramine 25 Mg Cap PO 25 mg HS PRN PRN Administration Diphenhydramine HCl 25 mg 05/03/24 18:31 05/04/24 09:12 Diphenhydramine 25 Mg Cap PO 25 mg Q4H PRN PRN Administration Docusate Sodium 100 mg 05/03/24 00:17 05/03/24 01:01 Docusate Sodium 100 Mg Cap PO 100 mg TID PRN PRN Administration Heparin Sodium (Porcine) 5,000 units 05/03/24 06:00 05/04/24 05:56 Heparin 5,000 Units/Ml Vial SC 5,000 units Q8H DAMEON Administration Hydromorphone HCl 1 mg 05/04/24 12:20 05/04/24 12:32 Hydromorphone 2 Mg Tab PO 1 mg Q4H PRN PRN Administration Insulin Aspart 0 - 18 units 05/04/24 12:00 05/04/24 11:53 Insulin Aspart 300 Units/3 Ml Pen SC Not Given 0800,1200,1700,2200 [facility] Protocol Isosorbide Mononitrate 60 mg 05/03/24 08:30 05/04/24 08:00 Isosorbide Mononitrate 60 Mg Tabcr PO 60 mg DAILY DAMEON Administration Levalbuterol 2 puff 05/03/24 00:00 05/04/24 11:02 Levalbuterol Hfa 15 Gm Inh IH 2 puff Q6H DAMEON Administration Losartan Potassium 100 mg 05/03/24 08:30 05/04/24 07:59 Losartan 50 Mg Tab PO 100 mg DAILY DAMEON Administration Melatonin 6 mg 05/03/24 18:31 05/03/24 19:24 Melatonin 3 Mg Tab PO 6 mg HS PRN PRN Administration Metoprolol Succinate 50 mg 05/04/24 08:30 05/04/24 07:59 Metoprolol Cr 50 Mg Tabcr PO 50 mg DAILY DAMEON Administration Ondansetron HCl 4 mg 05/03/24 00:43 05/03/24 05:30 Ondansetron 4 Mg/2 Ml Vial IVP 4 mg Q4H PRN PRN Administration Abdominal Pain Trazodone HCl 100 mg 05/03/24 00:40 05/03/24 19:23 Trazodone 100 Mg Tab PO 100 mg HS PRN PRN Administration IV IV Catheter Type [Right Peripheral IV Forearm] IV Catheter Gauge [Right 20 Forearm] Diet Orders Category Date Time Status DIET [Diabetes Consistent CHO] [DIET] Nutrition 05/04/24 Lunch Active Diagnostics 05/04/24 05/04/24 05/04/24 Range/Units 19:00 05:45 05:35 WBC 5.76 Cancelled RBC 3.93 Cancelled Hgb 12.0 Cancelled Hct 37.2 Cancelled MCV 95 Cancelled MCH 30.5 Cancelled MCHC 32.3 Cancelled RDW 13.0 Cancelled Plt Count 169 Cancelled MPV 10.0 Cancelled VBG Lactate 1.6 H (0.6-1.4) mmol/L Sodium Cancelled 141 (136-145) mmol/L Potassium Cancelled 3.7 (3.5-5.1) mmol/L Chloride Cancelled 104 (98-107) mmol/L Carbon Dioxide Cancelled 31.3 (21.0-32.0) mmol/L Anion Gap Cancelled 5.7 (3-11) mmol/L BUN Cancelled 11 (7-18) mg/dL Creatinine Cancelled 0.9 (0.55-1.02) mg/dL Est GFR (CKD-EPI 2020) Cancelled 67.92 (mL/min/1.73m2) Glucose Cancelled 140 H (74-106) mg/dL Hemoglobin A1c 7.7 H (<5.7) % Calcium Cancelled 8.3 L (8.5-10.1) mg/dL Magnesium 1.8 (1.8-2.4) mg/dL Total Bilirubin Cancelled 0.65 (0.2-1.0) mg/dL AST Cancelled 17 (15-37) U/L ALT Cancelled 29 (14-59) U/L Alkaline Phosphatase Cancelled 63 (46-116) U/L Total Protein Cancelled 6.7 (6.4-8.2) g/dL Albumin Cancelled 3.3 L (3.4-5.0) g/dL [id number] Documentation Fingerstick Glucose Start: 05/02/24 22:36 Freq: .Q6H Status: Complete Protocol: Activity Type Activity Date Activity User E-sign Co-sign Detail Recorded Client Recorded Date Recorded By Document 05/04/24 09:20 BKG DAEMON(5) NVT-BG05 05/04/24 09:21 BKG DAEMON(6) Fingerstick Glucose Start: 05/04/24 09:24 Freq: .ACHS Status: Active Protocol: Activity Type Activity Date Activity User E-sign Co-sign Detail Recorded Client Recorded Date Recorded By Document 05/04/24 11:47 BKG DAEMON(7) NVT-BG05 05/04/24 11:48 BKG DAEMON(8) Intake and Output - 24 Hour Total 05/02/24 17:41 thru 05/04/24 14:06 Intake Total 4532.5 Output Total 3825 Balance 707.5 Weight 165 kg Intake: IV 4222.5 Oral 310 Output: Gastric Drainage 2470 Right Nare 2370 Urine 1255 Emesis 100 Other: Urine Color Yellow Urine Appearance Clear Urine Odor None Comment not measured Falls Risk Assessment History of Falls Previous History 05/03/24 06:20 Contributing Factors Impairments 05/03/24 06:20 Ambulatory Aids Independent 05/03/24 01:00 Tubes/Lines With any additional score 05/03/24 06:20 Gait Evaluation W/no contributing factors 05/03/24 06:20 Cognition No cognitive impairment 05/03/24 06:20 Fall Total Score 48 05/03/24 06:20 Level of Risk Moderate Risk 05/03/24 06:20 Problems (Last Updated 05/02/24 @ 22:36 by Jovany Pedro) Heart block AV third degree (Acute) Abdominal pain with vomiting (Acute) Small bowel obstruction (Acute) Stenosis colon (Chronic) Chronic constipation (Chronic) Hyperlipidemia (Chronic) Hypertension (Chronic) Parkinsons disease (Chronic) CAD (coronary artery disease) (Chronic) Diabetes mellitus (Chronic) Notes 05/03/24 06:37 Nursing Notes by Chen Friend Nursing Note: Pt vomiting 0520 after receiving pain meds, left room to get pt Zofran and saw Perri RN run into the room. Per Perri pts tele strip looked like Asystole. Perri came back with a printed strip of 3rd degree heard block. Dr. Cornejo paged at 0525 and was notified at 0528. Pt given zofran per MAR and VSS at that time. MD came to floor to speak with patient about 20 mins later and was placing orders for ICU transfer. Zoll pads placed on pt and pt transferred to ICU with all belongings at 0626. Initialized on 05/03/24 06:37 - END OF NOTE 05/03/24 06:36 Nursing Notes by Chen Friend Nursing Note: Pt transferred to ICU at 6:25, Bedside Report given to Perri RN. Initialized on 05/03/24 06:36 - END OF NOTE 05/03/24 00:50 (created 05/03/24 06:45) Nursing Notes by Chen Friend Nursing Note: Pt arrived to floor at 0010, when pt got up from stretcher to bed she stated im going to throw up pt then sat down and fell back in to the bed and lost consciousness. Sternal rubbed pt and she woke up immediately. Per pt this happens almost every time she vomits. Dr. Cornejo made aware and ordered a 500mL bolus, given per MAR. Initialized on 05/03/24 06:45 - END OF NOTE v v v v v v v v v Sending and/or Receiving Nurses: Please use comment section below to note any information pertinent to the patient hand-off not included above. Information / Comments: Report received from: CRISTIANO Hui RN
[2024-05-04] MEDS: hydrOXYzine HCL 25 MG TAB PO (19:42)
[2024-05-04] MEDS: Atorvastatin 20 MG TAB PO (19:43)
[2024-05-04] MEDS: Omeprazole 20 MG CAPCR PO (19:43)
[2024-05-04] MEDS: Docusate Sodium 100 MG CAP PO (20:08)
[2024-05-04] MEDS: Polyethylene Glycol 3350 17 GM PACKET PO (21:36)
[2024-05-05 00:34] VITALS: O2SAT 94
[2024-05-05 02:54] VITALS: BP 128/57; PULSE 80; RESP 17; TEMP 36.7; O2SAT 94
[2024-05-05] MEDS: Levalbuterol HFA 15 GM INH 2 PUFF IH ×2 (05:25→12:43)
[2024-05-05] MEDS: Heparin 5,000 UNITS/ML VIAL 5000 UNITS SC (06:21)
[2024-05-05 06:27] LABS: HCT 34.3 % (36.0-46.0); HGB 11.6 g/dL (11.2-15.7); MCH 31.1 pg (27.0-33.0); MCHC 33.8 % (32.0-36.0); MCV 92 fL (80-95); MPV 10.4 fL (8.0-11.0); Platelet Count 125 10^3/uL (130-400); RBC 3.73 10^6/uL (3.93-5.22); RDW 12.8 % (11.7-14.6); RDW-SD 42.8 fL; WBC 4.67 10^3/uL (4.4-10.8)
[2024-05-05] MEDS: HYDROmorphone 2 MG TAB 1 MG PO ×2 (06:30→10:46)
[2024-05-05 07:27] LABS: ALT 26 U/L (14-59); AST 23 U/L (15-37); Albumin 3.2 g/dL (3.4-5.0); Alkaline Phosphatase 59 U/L (46-116); Anion Gap 7.9 mmol/L (3-11); BUN 12 mg/dL (7-18); Bilirubin, Total 0.67 mg/dL (0.2-1.0); CO2 28.1 mmol/L (21.0-32.0); CREATININE 0.9 mg/dL (0.55-1.02); Calcium 8.6 mg/dL (8.5-10.1); Chloride 106 mmol/L (98-107); Estimated GFR 67.92 (mL/min/1.73m2); Glucose 136 mg/dL (74-106); Potassium 3.6 mmol/L (3.5-5.1); Sodium 142 mmol/L (136-145); Total Protein 6.7 g/dL (6.4-8.2)
[2024-05-05] MEDS: Budesonide/Formoterol 80/4.5 6.9 GM 60 PUFF INH IH (07:52)
[2024-05-05 08:12] VITALS: O2SAT 91
[2024-05-05] MEDS: Losartan 50 MG TAB 100 MG PO (08:15)
[2024-05-05] MEDS: Omeprazole 20 MG CAPCR PO (08:15)
[2024-05-05] MEDS: Isosorbide Mononitrate 60 MG TABCR PO (08:16)
[2024-05-05] MEDS: amLODIPine 10 MG TAB PO (08:16)
[2024-05-05] MEDS: Aspirin E.C. 81 MG TABEC PO (08:16)
[2024-05-05] MEDS: Metoprolol CR 50 MG TABCR PO (08:21)
--- NOTE | 2024-05-05 08:53 | CHAPLAIN ---
Ih ad a short visit with Kae last evening. She didn't have the surgery she was hoping to have and may be discharged tomorrow. She's looking forward to being home with her , bird and dog.
--- NOTE | 2024-05-05 09:25 | PDOC.CMPRO ---
Date of service: 05/05/24 Time of Service: 09:26 Care Management Progress Note Discharge Potential Discharge Needs: PCP F/U Appt Anticipated Barriers to Discharge: None Identified Patient/Family Education Needs: Review discharge instructions, discuss Ask Me Three Transportation: Private vehicle Plan: Bubba will likely be discharged home with no new services. She will follow up with her community providers and plan of care and transport with family. CM will follow and continue to assess for discharge needs. SDOH(Care Management) Screening Will the Patient Participate in the Screening?: Yes Do you worry about having a steady place to live?: no Problems where you live: no known problems In the past 12 months, have you had to go without electric, gas, oil or water in your home?: no Have you or anyone in your house had to go without enough food to eat?: no Has lack of transportation kept you from medical appointments or from doing things needed for daily living?: no Has anyone in your support network made you feel unsafe for any reason?: no
--- NOTE | 2024-05-05 09:30 | PDOC.CMDIS ---
Date of service: 05/05/24 Time of Service: 09:30 LACE Index Scoring Tool Questions: Length of Stay (in days): 3 Was the patient admitted via the E.D.?: Yes Comorbidities: Diabetes w/o Complication and Chronic Pulmonary Disease E.D. Visits: 3 Answers: Total Score: 12 Risk of Readmission: High Risk Care Management Discharge Plan Reason for Hospitalization: abdominal pain Discharge Plan: Bubba will be discharged home with no new services. She will follow up with her community providers and plan of care and transport with family. Patient/Family Education Needs: review of discharge instructions, limitations, follow up plan, discuss Ask Me Three [facility] Health Related Social Needs: No Data to Display
[2024-05-05] MEDS: Milk of Magnesia 30 ML CUP PO (10:46)
[2024-05-05 11:30] VITALS: BP 117/58; PULSE 83; RESP 14; TEMP 36.4; O2SAT 93
[2024-05-05] MEDS: Acetaminophen 500 MG TAB 1000 MG PO (12:38)
--- NOTE | 2024-05-05 13:54 | W.PM.DS.N ---
Date of service: 05/05/24 Time of Service: 17:00 DS: Diagnosis Discharge Diagnosis (1) Abdominal pain with vomiting: Status: Resolved (2) Heart block AV third degree: Status: Inactive (3) CAD (coronary artery disease): (4) Stenosis colon: (5) Chronic constipation: Status: Chronic (6) Diabetes mellitus: (7) Hypertension: (8) Hyperlipidemia: (9) COPD (chronic obstructive pulmonary disease): (10) Parkinsons disease: Discharge Plan Disposition Patient Disposition: Home Condition: Good Discharge Details Reason For Visit: Bowel obstruction postsurgical, Syncope with third Admit Date/Time: 05/02/24 22:35 Admit Provider: Jovany Pedro Attending Provider: Jovany Pedro Primary Care Provider: Nikolas Matos Hospital Course Hospital Course: Patient initially presented with concerns for small bowel obstruction as she has significant intra-abdominal surgical history. She was seen and evaluated by general surgery did not believe the patient had acute bowel obstruction or other surgical diagnoses requiring immediate intervention. However they did recommend follow-up in the outpatient world this patient may benefit from ex lap to evaluate her chronic pain. While hospitalized her chronic pain was treated with Dilaudid which did lead to improvement as well as combination with Tylenol. Ultimately, given the patient was able to tolerate p.o. intake was determined that she was stable for discharge home. Home Meds and New Rx's Prescriptions: New metoprolol succinate 50 mg Tablet Extended Release 24 Hr 50 mg PO DAILY Qty: 90 0RF hydromorphone 2 mg Tablet 1 mg PO Q4H PRN PRNQty: 16 0RF Continued albuterol sulfate 90 mcg/actuation HFA aerosol inhaler 2 puff inhalation Q6H PRN amlodipine 10 mg tablet 10 mg PO DAILY diphenhydramine HCl [Allergy (diphenhydramine)] 25 mg capsule 25 mg PO QHS PRN isosorbide mononitrate 60 mg tablet extended release 24 hr 60 mg PO DAILY nitroglycerin 0.4 mg tablet, sublingual 0.4 mg sublingual Q5M PRN Rx Instructions: do not exceed 3 doses per episode omeprazole 20 mg capsule,delayed release(DR/EC) 20 mg PO BID aspirin 81 mg tablet,delayed release (DR/EC) 81 mg PO DAILY Docusate Sodium 200 mg PO HS metformin 1,000 mg tablet 1,000 mg PO BID hydroxyzine HCl 25 mg tablet 25 mg PO TID PRN Jardiance 10 mg tablet 10 mg PO DAILY triamcinolone acetonide 0.1 % cream 1 applic topical BID topiramate [Topamax] 25 mg tablet 25 mg PO BID levalbuterol tartrate 45 mcg/actuation HFA aerosol inhaler 2 inh inhalation Q6H atorvastatin 20 mg tablet 20 mg PO DAILY fluticasone furoate-vilanterol [Breo Ellipta] 100-25 mcg/dose blister with device 1 inh inhalation DAILY famotidine 40 mg tablet 40 mg PO DAILY trazodone 100 mg tablet 100 mg PO QHS PRN losartan 100 mg tablet 100 mg PO DAILY Patient Comments: TAKE ONE TABLET BY MOUTH EVERY DAY Ozempic 0.25 mg or 0.5 mg (2 mg/3 mL) pen injector 0.5 mg SUBCUT .weekly Patient Comments: INJECT 0.25 MG SUBCUTANEOUSLY ONCE WEEKLY FOR FIRST FOUR WEEKS, THEN INCREASE TO 0.5 MG ONCE WEEKLY Discontinued metoprolol succinate 100 mg tablet extended release 24 hr 100 mg PO DAILY Discharge Instructions Stand Alone Forms: Nursing Discharge Form Referrals: Nikolas Matos [Primary Care Provider] - 05/24/24 1:00 pm Elvis Colon MD [ [facility] STAFF PHYSICIAN] - Stacy Pires DO [OSTEOPATHIC DOCTOR] - 05/23/24 11:30 am Activity:: Activity as Tolerated Equipment/Supplies:: No Equipment Needed Diet:: As Tolerated Discharge Orders Discharge Orders: Discharge Order (Routine); Ordered 05/05/24 Ordered By: Arnol Stoner Discharge Data Discharge Date/Time-TO BE ENTERED AT DEPARTURE: 05/05/24 15:05 DS: Summary Time Spent with Patient providing and/or coordinating discharge services: Less than 30 minutes Status at Discharge Functional status at discharge: independent ambulation Overall status at discharge: patient is back to baseline Mental Status: mental status grossly normal Speech and Movement: speech and movement normal Mood: congruent mood Affect: normal affect Quality:SDOH Health Related Social Needs: No Data to Display Exam Narrative Exam Narrative: Well-appearing older female sitting up in the chair no acute distress, ANO x 4, heart regular rhythm, lungs clear to auscultation bilaterally, abdomen soft with very mild diffuse tenderness to deep palpation, no guarding or rebound Psych Mental Status: mental status grossly normal Speech and Movement: speech and movement normal Mood: congruent mood Affect: normal affect DS: Data Vitals/I&O Vitals and I&O: Vital Signs Temperature 97.5 F L 05/05/24 11:30 Temperature Source Temporal Artery Scan 05/05/24 11:30 Pulse 83 05/05/24 11:30 Pulse Rhythm Regular 05/03/24 01:00 Pulse Strength Normal 05/02/24 22:25 Pulse 99 H 05/04/24 06:56 Respiratory Rate 14 05/05/24 11:30 Respiratory Effort Normal 05/03/24 06:20 Respiratory Depth Normal 05/03/24 06:20 Respiratory Pattern Normal 05/03/24 06:20 Blood Pressure 117/58 L 05/05/24 11:30 Blood Pressure Mean 91 05/04/24 06:56 Blood Pressure Position Supine 05/03/24 06:20 Pulse Oximetry 93 05/05/24 11:30 Oxygen Delivery Method Room Air 05/05/24 08:12 Oxygen Flow Rate 0 05/05/24 08:12 Pain Level 8 05/05/24 12:38 Intake & Output 05/04/24 05/05/24 05/05/24 17:59 05:59 17:59 Intake Total 412.5 / 412.5 600 / 1012.5 50 / 50 Output Total 350 / 350 400 / 750 Balance 62.5 / 62.5 200 / 262.5 50 / 50 Weight 162 lb 7.691 oz Intake: IV 162.5 / 162.5 Oral 250 / 250 600 / 850 50 / 50 Output: Urine 350 / 350 400 / 750 Other: Urine Color Yellow Yellow Urine Appearance Clear Clear Urine Odor None Normal Comment not measured pt voided into toilet pT reports she has voided independently many times through out the day. Data Completed and Pending Labs on day of discharge: Labs from last 24 hours 05/05/24 05/05/24 06:54 05:55 WBC 4.67 RBC 3.73 L Hgb 11.6 Hct 34.3 L MCV 92 MCH 31.1 MCHC 33.8 RDW 12.8 Plt Count 125 L MPV 10.4 Sodium 142 Potassium 3.6 Chloride 106 Carbon Dioxide 28.1 Anion Gap 7.9 BUN 12 Creatinine 0.9 Est GFR (CKD-EPI 2020) 67.92 Glucose 136 H Calcium 8.6 Magnesium 2.0 Total Bilirubin 0.67 AST 23 ALT 26 Alkaline Phosphatase 59 Total Protein 6.7 Albumin 3.2 L PFSH All Active Problems (Updated 05/06/24 @ 00:06 by Phillip Barreto MD) Fecal impaction in rectum (Acute) Abdominal discomfort (Acute) Chronic constipation (Chronic) Arthritis (Acute) Back pain (Acute) GERD (gastroesophageal reflux disease) (Chronic) Obesity (Chronic) Claustrophobia (Acute) Osteoporosis (Chronic) Headache (Acute) Asthma with COPD (chronic obstructive pulmonary disease) (Acute) Vitamin D deficiency (Acute) Screening for colon cancer (Acute) Corns and callosities (Acute) Cubital tunnel syndrome on left (Acute) Cubital tunnel syndrome on right (Acute) Trigger finger, left middle finger (Acute) Trigger finger, right middle finger (Acute) Left carpal tunnel syndrome (Acute) Right carpal tunnel syndrome (Acute) Medical History Diabetes mellitus CAD (coronary artery disease) Parkinsons disease 02/03/23 pt has a DBS implanted for this RH Hypertension Hyperlipidemia Stenosis colon Heart block AV third degree Osteoarthritis of left knee mild Small bowel obstruction Diverticulitis PTSD (post-traumatic stress disorder) Dermatitis Anxiety Petechial rash upper and lower extremities, chronic. Started in 2018. COPD (chronic obstructive pulmonary disease) Surgical History History of colonoscopy (~02/2024) History of colostomy reversal Social History Smoking/Tobacco Use Status: Former Tobacco Use Quit Date: 06/15/11 Smoking risk assessment performed?: Yes Alcohol Intake: never Drug use: Never Housing: house Do you feel safe at home: Yes Do you feel safe in your relationship?: Yes Time Spent with Patient Time Spent with Patient: <45 minutes Time was spent: preparing to see the patient(eg.review tests), obtaining and/or reviewing separately otained hiistory, ordering medications,tests, procedures, referring, communicating with other health career guidance counselor, indepentently interpreting results, counseling the patient and care coordination
== END 2024-05-05 15:05 | disposition home or self-care (01) | DRG 389 ==
LOC: ER 22:50 → ICU 05-03 06:45 → MS 05-04 14:17
PROVIDERS: Hospitalist; Admitting Provider Family Medicine; Emergency Provider Physician Assistant; PCP Physician Assistant; Visit Provider Family Medicine
DX: I44.2 Atrioventricular block, complete (principal); R11.10 Vomiting, unspecified; I25.10 Atherosclerotic heart disease of native coronary artery without angina pectoris; K59.09 Other constipation; E11.9 Type 2 diabetes mellitus without complications; I10 Essential (primary) hypertension; E78.2 Mixed hyperlipidemia; J41.0 Simple chronic bronchitis; G20.A1 Parkinson's disease without dyskinesia, without mention of fluctuations; K91.30 Postprocedural intestinal obstruction, unspecified as to partial versus complete; Z98.0 Intestinal bypass and anastomosis status; Z96.82 Presence of neurostimulator; K21.9 Gastro-esophageal reflux disease without esophagitis; E66.9 Obesity, unspecified; M81.0 Age-related osteoporosis without current pathological fracture; E55.9 Vitamin D deficiency, unspecified; Z79.84 Long term (current) use of oral hypoglycemic drugs; Z79.85 Long-term (current) use of injectable non-insulin antidiabetic drugs; R10.9 Unspecified abdominal pain; G89.29 Other chronic pain; R55 Syncope and collapse
CPT/HCPCS: 00123; 36415; 36416; 80053; 82962; 83690; 85027; 87635; 94640; 96365; 96375; 99223; 99232; 99285; 74018; 74176; 81003; 83036; 83605; 83735; 84484; 85025; 85610; 93005; 93010; 94664; 94760; 99233; 99239; J0131; J0780; J1171; J1644; J1815; J2405; J2470

== ENCOUNTER 2024-05-05 21:47 | Emergency (ER) | payer BC, MEDICARE, SELFPAY ==
[2024-05-05] VITALS (9 sets, daily range): BP systolic 160–187; BP diastolic 50–117; PULSE 104–137; RESP 13–22; TEMP 36.6; O2SAT 92–94
--- NOTE | 2024-05-05 22:02 | W.ED.GENAD ---
Discharge Plan Disposition Patient Disposition: Home Condition: Improving Discharge Details Clinical Impression: Fecal impaction in rectum, Chronic constipation Primary Care Provider: Nikolas Matos ED Provider: Phillip Barreto [place] Meds and New Rx's Prescriptions: Continued albuterol sulfate 90 mcg/actuation HFA aerosol inhaler 2 puff inhalation Q6H PRN amlodipine 10 mg tablet 10 mg PO DAILY diphenhydramine HCl [Allergy (diphenhydramine)] 25 mg capsule 25 mg PO QHS PRN isosorbide mononitrate 60 mg tablet extended release 24 hr 60 mg PO DAILY nitroglycerin 0.4 mg tablet, sublingual 0.4 mg sublingual Q5M PRN Rx Instructions: do not exceed 3 doses per episode omeprazole 20 mg capsule,delayed release(DR/EC) 20 mg PO BID aspirin 81 mg tablet,delayed release (DR/EC) 81 mg PO DAILY Docusate Sodium 200 mg PO HS metformin 1,000 mg tablet 1,000 mg PO BID hydroxyzine HCl 25 mg tablet 25 mg PO TID PRN Jardiance 10 mg tablet 10 mg PO DAILY triamcinolone acetonide 0.1 % cream 1 applic topical BID topiramate [Topamax] 25 mg tablet 25 mg PO BID levalbuterol tartrate 45 mcg/actuation HFA aerosol inhaler 2 inh inhalation Q6H atorvastatin 20 mg tablet 20 mg PO DAILY fluticasone furoate-vilanterol [Breo Ellipta] 100-25 mcg/dose blister with device 1 inh inhalation DAILY famotidine 40 mg tablet 40 mg PO DAILY trazodone 100 mg tablet 100 mg PO QHS PRN losartan 100 mg tablet 100 mg PO DAILY Patient Comments: TAKE ONE TABLET BY MOUTH EVERY DAY Ozempic 0.25 mg or 0.5 mg (2 mg/3 mL) pen injector 0.5 mg SUBCUT .weekly Patient Comments: INJECT 0.25 MG SUBCUTANEOUSLY ONCE WEEKLY FOR FIRST FOUR WEEKS, THEN INCREASE TO 0.5 MG ONCE WEEKLY metoprolol succinate 50 mg Tablet Extended Release 24 Hr 50 mg PO DAILY Qty: 90 0RF hydromorphone 2 mg Tablet 1 mg PO Q4H PRN PRNQty: 16 0RF Discharge Instructions Additional Instructions: You were found to have fecal impaction in the rectum which improved after soapsuds enema. Continue to manage chronic constipation as previous. Contact surgical clinic for follow-up in regards to the underlying problem of colonic stenosis at your previous anastomosis. Return to ED for new or worsening abdominal pain, persistent vomiting, fever, other concerns. Referrals: [facility] [Provider Group] [facility] General Mode of arrival: ambulatory. Date/Time Provider Initiated Documentation: 05/05/24 21:50. Limitations to Documentation: no limitations. Information obtained by: patient, RN notes reviewed and old records reviewed. HPI Narrative: Patient presenting to ED with complaint of rectal pain and bleeding. Patient was just discharged from the hospital earlier today after an admission for abdominal pain and vomiting. She is being followed by general surgery. She was admitted to medical service. Abdominal pain is chronic in nature as his constipation. Reports since going home she is taking Colace and laxative and was trying to have a bowel movement tonight. She is now having rectal pain, pressure and bleeding. She is nauseated but not vomiting. Continues to have abdominal pain similar to previous. No reported fever. Related Data Home Medications ?Medication ?Instructions ?Recorded ?Confirmed Docusate Sodium 200 mg PO HS 04/07/22 05/05/24 albuterol sulfate 90 mcg/actuation 2 puff inhalation Q6H PRN 04/07/22 05/05/24 aerosol inhaler amlodipine 10 mg tablet 10 mg PO DAILY 04/07/22 05/05/24 aspirin 81 mg tablet,delayed 81 mg PO DAILY 04/07/22 05/05/24 release diphenhydramine HCl 25 mg capsule 25 mg PO QHS PRN 04/07/22 05/05/24 (Allergy (diphenhydramine)) isosorbide mononitrate 60 mg 60 mg PO DAILY 04/07/22 05/05/24 tablet,extended release 24 hr nitroglycerin 0.4 mg sublingual 0.4 mg sublingual Q5M PRN 04/07/22 05/05/24 tablet omeprazole 20 mg capsule,delayed 20 mg PO BID 04/07/22 05/05/24 release hydroxyzine HCl 25 mg tablet 25 mg PO TID PRN 04/21/22 05/05/24 metformin 1,000 mg tablet 1,000 mg PO BID 04/21/22 05/05/24 empagliflozin 10 mg tablet 10 mg PO DAILY 08/05/22 05/05/24 (Jardiance) triamcinolone acetonide 0.1 % 1 applic topical BID 08/05/22 05/05/24 topical cream levalbuterol tartrate 45 2 inh inhalation Q6H 07/06/23 05/05/24 mcg/actuation aerosol inhaler topiramate 25 mg tablet (Topamax) 25 mg PO BID 07/06/23 05/05/24 atorvastatin 20 mg tablet 20 mg PO DAILY 01/27/24 05/05/24 famotidine 40 mg tablet 40 mg PO DAILY 01/27/24 05/05/24 fluticasone furoate 100 1 inh inhalation DAILY 01/27/24 05/05/24 mcg-vilanterol 25 mcg/dose inhalation powder (Breo Ellipta) trazodone 100 mg tablet 100 mg PO QHS PRN 01/27/24 05/05/24 losartan 100 mg tablet 100 mg PO DAILY 03/01/24 05/05/24 semaglutide 0.25 mg or 0.5 mg (2 0.5 mg subcut .weekly 05/02/24 05/05/24 mg/3 mL) subcutaneous pen injector ([employer]) hydromorphone 2 mg tablet 1 mg (1/2 x 2 mg) PO Q4H PRN PRN 05/05/24 05/05/24 #16 tabs metoprolol succinate 50 mg 50 mg PO DAILY #90 tabs 05/05/24 05/05/24 tablet,extended release 24 hr Previous Rx's ?Medication ?Instructions ?Recorded hydromorphone 2 mg tablet 1 mg (1/2 x 2 mg) PO Q4H PRN PRN 05/05/24 #16 tabs metoprolol succinate 50 mg 50 mg PO DAILY #90 tabs 05/05/24 tablet,extended release 24 hr Allergies Allergy/AdvReac Type Severity Reaction Status Date / Time alprazolam (From Xanax) Allergy Severe hives Verified 05/05/24 21:56 codeine Allergy Severe throat Verified 05/05/24 21:56 swells shut meperidine (From Demerol) Allergy Severe Hives Verified 05/05/24 21:56 Penicillins Allergy Severe throat Verified 05/05/24 21:56 swells shut butorphanol (From Stadol) Allergy Intermediate Anaphylaxis Verified 05/05/24 21:56 Iodinated Contrast Media Allergy Intermediate rash, Verified 05/05/24 21:56 nausea, vomiting ketorolac (From Toradol) AdvReac Intermediate Nausea Verified 05/05/24 21:56 IV Contrast Allergy Severe Skin Rash Uncoded 05/05/24 21:56 General Stated Complaint: GI Bleed ABRAHAM: 3 Review of Systems Narrative: Per HPI Exam Narrative Exam Narrative: Const: Obese elderly female in NAD. VS per triage. HEENT: NC/AT. Normal facial exam. Neck: Supple. Trachea midline. Lungs: Normal respiratory effort. Cor: RRR, mild tachycardia GI: Soft/ND/NT. Rectal: Performed with female nurse present, no external hemorrhoids. Soft but large amount of stool in the rectal vault. No gross blood. . Neuro: A+O x 3. Normal speech, mentation, gait. Cranial nerves II - XII grossly intact. No gross motor or sensory deficit. Ext: No C/C/E. Course Vital Signs Vital signs: Vital Signs Temperature 97.9 F 05/05/24 21:50 Pulse 124 H 05/05/24 21:50 Respiratory Rate 16 05/05/24 21:50 Pulse Oximetry 94 05/05/24 21:50 Temperature 97.9 F 05/05/24 21:50 Temperature Source Oral 05/05/24 21:50 Pulse 124 H 05/05/24 21:50 Respiratory Rate 16 05/05/24 21:50 Respiratory Effort Normal, Non-Labored 05/05/24 21:55 Blood Pressure Position Sitting 05/05/24 21:50 Pulse Oximetry 94 05/05/24 21:50 Oxygen Delivery Method Room Air 05/05/24 21:50 Oxygen Flow Rate 0 05/05/24 21:50 Pain Level 10 05/05/24 21:50 Medical Decision Making Patient presenting to ED with rectal pain, pressure, bleeding. Per old records she has previous bowel resection with ostomy and subsequent reanastomosis. On colonoscopy she was found to have a tight stricture at the presumed anastomosis. This result in chronic abdominal pain, nausea/vomiting, partial bowel obstruction. She was discharged from the hospitalist service earlier today. Was trying to have a bowel movement at home. Now has pain, pressure, bleeding. On exam she has fecal impaction of the rectum with large amount of soft stool. She is uncomfortable and anxious leading to her mild tachycardia. There was no gross blood at this time. Soapsuds enema ordered. Patient had some difficulty retaining the enema. Ultimately she was able to pass stool after about half an hour. She is feeling much better. She can be discharged home at this time. She should reach out to surgery clinic to arrange for follow-up and to discuss her options going forward. Return precautions provided. Medical Records Medical records reviewed: Yes I reviewed the patient's medical records. Medical records narrative: Most recent 2 admissions, colonoscopy report, pathology report, surgical outpatient visit [facility] All Active Problems (Updated 05/06/24 @ 00:06 by Phillip Barreto MD) Fecal impaction in rectum (Acute) Abdominal discomfort (Acute) Chronic constipation (Chronic) Arthritis (Acute) Back pain (Acute) GERD (gastroesophageal reflux disease) (Chronic) Obesity (Chronic) Claustrophobia (Acute) Osteoporosis (Chronic) Headache (Acute) Asthma with COPD (chronic obstructive pulmonary disease) (Acute) Vitamin D deficiency (Acute) Screening for colon cancer (Acute) Corns and callosities (Acute) Cubital tunnel syndrome on left (Acute) Cubital tunnel syndrome on right (Acute) Trigger finger, left middle finger (Acute) Trigger finger, right middle finger (Acute) Left carpal tunnel syndrome (Acute) Right carpal tunnel syndrome (Acute) Medical History Diabetes mellitus CAD (coronary artery disease) Parkinsons disease 02/03/23 pt has a DBS implanted for this RH Hypertension Hyperlipidemia Stenosis colon Heart block AV third degree Osteoarthritis of left knee mild Small bowel obstruction Diverticulitis PTSD (post-traumatic stress disorder) Dermatitis Anxiety Petechial rash upper and lower extremities, chronic. Started in 2018. COPD (chronic obstructive pulmonary disease) Surgical History History of colonoscopy (~02/2024) History of colostomy reversal Social History Smoking/Tobacco Use Status: Former Tobacco Use Quit Date: 06/15/11 Smoking risk assessment performed?: Yes Alcohol Intake: never Drug use: Never Housing: house Do you feel safe at home: Yes Do you feel safe in your relationship?: Yes
[2024-05-06 00:15] VITALS: BP 187/67; PULSE 116; RESP 18; O2SAT 94
== END 2024-05-06 00:16 | disposition home or self-care (01) ==
PROVIDERS: Emergency Provider Emergency Medicine; PCP Physician Assistant
DX: K56.41 Fecal impaction (principal); R11.0 Nausea; R10.30 Lower abdominal pain, unspecified
CPT/HCPCS: 99283

== ENCOUNTER → 2024-05-18 10:35 | Outpatient (BNVA) | payer BC, MEDICARE, SELFPAY | PROVIDERS: PCP Physician Assistant; Referring Provider Physician Assistant; Visit Provider Student in an Organized Health Care Education/Training Program | DX: R10.32 Left lower quadrant pain (principal); K90.9 Intestinal malabsorption, unspecified; G89.29 Other chronic pain | CPT/HCPCS: 99215; G2212 ==

== ENCOUNTER 2024-06-24 09:36 | Outpatient (CLI) | payer BC, MEDICARE, SELFPAY ==
[2024-06-24 09:52] LABS: Abs Immature Grans 0.02 10^3/uL (0.0-0.06); Absolute Basophil Count 0.05 10^3/uL (0.0-0.2); Absolute Eosinophil Count 0.19 10^3/uL (0.0-0.7); Absolute Lymphocyte Count 2.45 10^3/uL (1.2-3.4); Absolute Monocyte Count 0.49 10^3/uL (0.1-0.8); Absolute Neutrophil Count 4.06 10^3/uL (1.2-6.7); Basophils % 0.7 %; Eosinophils % 2.6 %; HCT 38.1 % (36.0-46.0); Immature Grans % 0.3 %; Lymphocytes % 33.7 %; MCH 30.9 pg (27.0-33.0); MCHC 34.1 % (32.0-36.0); MCV 91 fL (80-95); MPV 9.9 fL (8.0-11.0); Monocytes % 6.7 %; Platelet Count 222 10^3/uL (130-400); RBC 4.21 10^6/uL (3.93-5.22); RDW 13.1 % (11.7-14.6); RDW-SD 43.6 fL; WBC 7.26 10^3/uL (4.4-10.8)
[2024-06-26 15:24] LABS: HIT ELISA <0.050 OD (<0.400); HIT Interpretation Negative (Negative)
[2024-06-27 10:06] LABS: Prealbumin 23 mg/dL (20-40)
== END 2024-06-24 09:37 | disposition home or self-care (01) ==
PROVIDERS: PCP Physician Assistant; Visit Provider Student in an Organized Health Care Education/Training Program
DX: K90.9 Intestinal malabsorption, unspecified (principal); D69.6 Thrombocytopenia, unspecified; K56.41 Fecal impaction
CPT/HCPCS: 36415; 86022; 86850; 86900; 86901; 84134; 85025

== ENCOUNTER 2024-06-29 05:51 | Inpatient (IN) | payer BC, MEDICARE, SELFPAY ==
--- NOTE | 2024-06-28 18:11 | W.ANESPRE ---
General Info Date of Service Date Performed: 06/29/24 Height: 5 ft Weight: 74.389 kg Body Mass Index (BMI): 32.0 Surgical Procedure: Operation Date: 06/29/24 07:40 Proposed Procedure Side Surgeon p Exploratory Laparoscopy, Possible Exp. Laparotomy, Possible Colostomy, Likely Colon Resection Elvis Colon MD Meds Allergies and Home Medications Allergies Allergy/AdvReac Type Severity Reaction Status Date / Time alprazolam (From Xanax) Allergy Severe hives Verified 06/29/24 06:43 codeine Allergy Severe throat Verified 06/29/24 06:43 swells shut meperidine (From Demerol) Allergy Severe Hives Verified 06/29/24 06:43 Penicillins Allergy Severe throat Verified 06/29/24 06:43 swells shut butorphanol (From Stadol) Allergy Intermediate Anaphylaxis Verified 06/29/24 06:43 Iodinated Contrast Media Allergy Intermediate rash, Verified 06/29/24 06:43 nausea, vomiting ketorolac (From Toradol) AdvReac Intermediate Nausea Verified 06/29/24 06:43 IV Contrast Allergy Severe Skin Rash Uncoded 06/29/24 06:43 Home Medication ?Medication ?Instructions ?Recorded Docusate Sodium 200 mg PO HS 04/07/22 albuterol sulfate 90 mcg/actuation 2 puff inhalation Q6H PRN 04/07/22 aerosol inhaler amlodipine 10 mg tablet 10 mg PO DAILY 04/07/22 aspirin 81 mg tablet,delayed 81 mg PO DAILY 04/07/22 release isosorbide mononitrate 60 mg 60 mg PO DAILY 04/07/22 tablet,extended release 24 hr nitroglycerin 0.4 mg sublingual 0.4 mg sublingual Q5M PRN 04/07/22 tablet omeprazole 20 mg capsule,delayed 20 mg PO BID 04/07/22 release hydroxyzine HCl 25 mg tablet 25 mg PO TID PRN 04/21/22 metformin 1,000 mg tablet 1,000 mg PO BID 04/21/22 levalbuterol tartrate 45 2 inh inhalation Q6H 07/06/23 mcg/actuation aerosol inhaler atorvastatin 20 mg tablet 20 mg PO DAILY 01/27/24 famotidine 40 mg tablet 40 mg PO DAILY 01/27/24 fluticasone furoate 100 1 inh inhalation DAILY 01/27/24 mcg-vilanterol 25 mcg/dose inhalation powder (Breo Ellipta) trazodone 100 mg tablet 100 mg PO QHS PRN 01/27/24 losartan 100 mg tablet 100 mg PO DAILY 03/01/24 hydromorphone 2 mg tablet 1 mg (1/2 x 2 mg) PO Q4H PRN PRN 05/05/24 #16 tabs metoprolol succinate 50 mg 50 mg PO DAILY #90 tabs 05/05/24 tablet,extended release 24 hr bisacodyl 5 mg tablet,delayed 5 mg PO ONCE colonscopy bowel prep 05/18/24 release (Dulcolax (bisacodyl)) #4 tabs diphenhydramine HCl 25 mg capsule 25 mg PO QHS 05/18/24 (Allergy (diphenhydramine)) metronidazole 500 mg tablet 500 mg PO .COMPLEX #8 tabs 05/18/24 neomycin 500 mg tablet 500 mg PO .COMPLEX #8 tabs 05/18/24 ondansetron HCl 8 mg tablet 8 mg PO Q12H #3 tabs 05/18/24 polyethylene glycol 3350 17 238 g PO ONCE colonoscopy prep 05/18/24 gram/dose oral powder #238 grams semaglutide 0.25 mg or 0.5 mg (2 0.5 mg subcut QWEEK 05/18/24 mg/3 mL) subcutaneous pen injector (Ozempic) sennosides 15 mg chewable tablet 15 mg PO BID 05/18/24 (Ex-Lax (sennosides)) Current Visit Medications: Current Medications Generic Name Dose Route Start Last Admin Trade Name Bety PRN Reason Stop Dose Admin Acetaminophen 1,000 mg 06/29/24 06:00 Acetaminophen 500 Mg Tab PO 06/29/24 23:59 PREOP DAMEON Ringer's Solution 1,000 mls @ 75 mls/hr 06/29/24 06:00 IV 06/29/24 23:59 INFUSION DAMEON Cefazolin Sodium/Dextrose 2 gm in 50 mls @ 100 mls/hr 06/29/24 06:00 Ancef Duplex IVPB 06/29/24 23:59 PREOP DAMEON Metronidazole 500 mg in 100 mls @ 100 mls/hr 06/29/24 06:00 Flagyl IVPB 06/29/24 23:59 PREOP DAMEON IV Miscellaneous Supplies 1 each 06/29/24 06:00 Iv Access IV 06/29/24 23:59 DIRECTED DAMEON Sodium Chloride 0 ml 06/29/24 06:00 Normal Saline Flush 10 Ml Syr IV 06/29/24 23:59 PRN PRN Sodium Chloride 0 ml 06/29/24 06:00 Normal Saline 10 Ml Vial IJ 06/29/24 23:59 DIRECTED PRN Sterile Water 0 ml 06/29/24 06:00 Water,Injection,Sterile 10 Ml Vial IJ 06/29/24 23:59 DIRECTED PRN PFSH Active Problems Active Problems: Problem Status Onset Code 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 Acute K90.9 Fecal impaction in rectum Acute K56.41 Abdominal discomfort Acute R10.9 Arthritis Acute M19.90 Back pain Acute M54.9 GERD (gastroesophageal reflux disease) Chronic K21.9 Obesity Chronic E66.9 Claustrophobia Acute F40.240 Osteoporosis Chronic M81.0 Headache Acute R51.9 Asthma with COPD (chronic obstructive pulmonary disease) Acute J44.9 Vitamin D deficiency Acute E55.9 Screening for colon cancer Acute Z12.11 Corns and callosities Acute L84 Cubital tunnel syndrome on left Acute G56.22 Cubital tunnel syndrome on right Acute G56.21 Trigger finger, left middle finger Acute M65.332 Trigger finger, right middle finger Acute M65.331 Left carpal tunnel syndrome Acute G56.02 Right carpal tunnel syndrome Acute G56.01 Medical History Medical History Diabetes mellitus CAD (coronary artery disease) Parkinsons disease 02/03/23 pt has a DBS implanted for this RH Hypertension Hyperlipidemia Stenosis colon Heart block AV third degree Osteoarthritis of left knee mild Small bowel obstruction Diverticulitis PTSD (post-traumatic stress disorder) Dermatitis Anxiety Petechial rash upper and lower extremities, chronic. Started in 2018. COPD (chronic obstructive pulmonary disease) Surgical History Surgical History History of colonoscopy (~02/2024) History of colostomy reversal Tobacco Smoking/Tobacco Use Status: Former Tobacco Use Alcohol Alcohol Intake: never Substance Use Substance use: Never Substance use type: does not use Vital Signs and Lab Results Lab Results Blood Type / Crossmatch: Antibody Screen NEGATIVE 06/24/24 Complete Blood Count: White Blood Count 7.26 10^3/uL (4.4-10.8) 06/24/24 09:40 Red Blood Count 4.21 10^6/uL (3.93-5.22) 06/24/24 09:40 Hemoglobin 13.0 g/dL (11.2-15.7) 06/24/24 09:40 Hematocrit 38.1 % (36.0-46.0) 06/24/24 09:40 Platelet Count 222 10^3/uL (130-400) 06/24/24 09:40 Complete Metabolic Panel: No Data to Display Liver Function Panel: No Data to Display Coagulation Panel: No Data to Display Cardiac Panel: No Data to Display Arterial Blood Gas: No Data to Display Venous Blood Gas: No Data to Display Pancreas Panel: No Data to Display Thyroid Panel: No Data to Display Infectious Disease: No Data to Display Blood Cultures: No Data to Display Toxicology Panel: No Data to Display Imaging and Studies Imaging and Studies Study information below may be from another EMR and interpreted by another provider. Please see original notes in EMR for more complete details. EKG Summary: 02/29/24 Conclusion Sinus rhythm 90 normal axis no stemi Anesthesia Assessment and Plan Anesthesia History Personal History: No History of Anesthesia Complications Family History: No Family History of Anesthesia Complications Exercise Tolerance Exercise Tolerance: Metabolic Equivalents>4 Cardiac & Pulmonary Exam Cardiac Exam: Normal S1/S2 Heart Sounds Pulmonary Exam: Clear Bilateral Breath Sounds Implantable Cardiac Device Does patient have a Pacemaker or an ICD?: No Airway Exam Known Difficult Airway: No Mallampati Class: 2 Mouth Opening: Normal (> 3cm) Thyromental Distance: Greater than 3 cm Neck Range of Motion: Full ROM Neck Circumference: Normal Teeth Condition: Removable Dentures/Plates Upper, Removable Dentures/Plates Lower and Edentulous ASA Classification ASA Score: ASA 3 Emergency Case?: No NPO Status NPO Status: NPO Clears >2 hours, Solids >8 hours Anesthesia Plan Resuscitation Status: Full Code Anesthesia Technique: General Anesthesia Airway Planned: Endotracheal Tube Monitors Used: Standard Monitors Preoperative Comments:: 73 yo female with multiple drug sensitivities for exploratory laparoscopy/exploratory laparotomy due to chronic left abdominal pain after colostomy reversal. Sig PMHx: HTN (amlodipine, losartan, metoprolol. checks it at home runs ~130/), CAD (mild non-obstructing. isosorbide. denies nitro use, can go up and down stairs with minimal pauses, has been walking daily), COPD/asthma (brio-ellipta, levalbuterol. breathing feels good today), GERD, Parkinson's (DBS is off), DM (last A1c 7.), PTSD/anxiety. former smoker. s/p ACDF (?). Has a sacral stimulator which is very old, not working. Also states she has another stimulator in her low back with leads she believes in her back. CT can shows sacral leads/device and likely spinal cord stimulator in place. EKG: sinus. Previous Anes: no airway on file here. - colo, prop, natural airway, no issues. Difficult IV starts, midline placed in DSU. Discussed plan of GA with 2nd point of vascular access and rescue regional anesthesia along with the potential for arterial line. Discussed that given her stimulator position that she is likely not a candidate for an epidural.
[2024-06-29] VITALS (111 sets, daily range): BP systolic 95–150; BP diastolic 28–68; PULSE 67–109; RESP 9–25; TEMP 36.2–37.1; O2SAT 92–99; BMI 32.0
[2024-06-29] MEDS: Acetaminophen 500 MG TAB 1000 MG PO (06:48)
[2024-06-29] MEDS: Lactated Ringers 1,000 ML 75 ML IV (07:19)
[2024-06-29] MEDS: metroNIDAZOLE 500 MG/100 ML BAG 100 MG IVPB ×2 (07:39→17:32)
--- NOTE | 2024-06-29 07:45 | W.SURGCON ---
Date of service: 06/29/24 Time of Service: 07:45 Assessment and Plan Assessment and plan (1) Abdominal discomfort: Status: Acute Assessment and plan: 73-year-old woman with severe abdominal pain chronically after a diverting colostomy reversal 6 or 7 years ago. Gets numerous obstructions and pain always at the same site. CT scans show fecalized small bowel in that location. A small bowel resection had been performed there. The differential diagnosis is broad, but exploration is warranted because of the patient's severe pain that she has been living with. Pathology has been reviewed from outside hospitals on the prior resections. Nothing is suspicious for inflammatory bowel disease. Inadvertent bowel injury likely due to anticipated dense scar tissue. Creating enterocutaneous fistula and missed enterotomy are significant risks for this case. The biggest risk for the procedure is persistent severe and chronic pain despite operative intervention and revision. Patient wants to proceed. Plan: Surgical exploration Possible bowel resection Possible colon resection with revision of low pelvic anastomosis Possible ostomy creation History of Present Illness Narrative: Patient here for ex lap. No changes in symptoms. All of her outside records were obtained and reviewed. Her brain stimulator has been turned off. Her other spinal/misc stimulators are no longer working according to her and her . PFSH All Active Problems 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 (Acute) Fecal impaction in rectum (Acute) Abdominal discomfort (Acute) Arthritis (Acute) Back pain (Acute) GERD (gastroesophageal reflux disease) (Chronic) Obesity (Chronic) Claustrophobia (Acute) Osteoporosis (Chronic) Headache (Acute) Asthma with COPD (chronic obstructive pulmonary disease) (Acute) Vitamin D deficiency (Acute) Screening for colon cancer (Acute) Corns and callosities (Acute) Cubital tunnel syndrome on left (Acute) Cubital tunnel syndrome on right (Acute) Trigger finger, left middle finger (Acute) Trigger finger, right middle finger (Acute) Left carpal tunnel syndrome (Acute) Right carpal tunnel syndrome (Acute) Medical History Diabetes mellitus CAD (coronary artery disease) Parkinsons disease 02/03/23 pt has a DBS implanted for this RH Hypertension Hyperlipidemia Stenosis colon Heart block AV third degree Osteoarthritis of left knee mild Small bowel obstruction Diverticulitis PTSD (post-traumatic stress disorder) Dermatitis Anxiety Petechial rash upper and lower extremities, chronic. Started in 2018. COPD (chronic obstructive pulmonary disease) Surgical History History of colonoscopy (~02/2024) History of colostomy reversal Social History Smoking/Tobacco Use Status: Former Tobacco Use Quit Date: 06/15/11 Smoking risk assessment performed?: Yes Alcohol Intake: never Drug use: Never Substance use type: does not use Housing: house Do you feel safe at home: Yes Do you feel safe in your relationship?: Yes Exam Narrative Exam Narrative: Gen: Non-toxic, comfortable and interactive Neuro: Alert and oriented x3 Psych: Good mood and affect. Good insight and understanding into condition. Chest: Non-labored breathing, no wheezing, no visible shortness of breath. Heart: Regular Results Last Vital Signs Temp 97.2 F L 06/29/24 06:24 Pulse 67 06/29/24 06:24 Resp 17 06/29/24 06:24 BP 133/61 06/29/24 06:24 Pulse Ox 97 06/29/24 06:24
[2024-06-29] MEDS: ceFAZolin 2 GM/50 ML BAG IVPB (08:31)
--- NOTE | 2024-06-29 09:06 | W.ANESVAS ---
Midline Placement Date Performed: 06/29/24 Procedure Time: 07:10 Requesting Provider: Elvis Colon Procedure Location: Day Surgery Unit Sedation Given (Indicate Dose Given): No Sedation given Patient Mental Status: Awake Sterility: Hand Hygiene, Surgical Cap, Surgical Mask, Sterile Gloves, Sterile Drape/Sheet and Chlorhexidine Laterality: Left Insertion Site: Basilic Midline Device: PowerGlide Pro 18G Catheter Length: 10 cm Midline Procedure Procedure: 1% Lidocaine to skin and subcutaneous tissue with 25g needle and Catheter placed without resistance Dressing: Tegaderm Applied and Statlock Applied Blood Return: Present Flushes: Easily Ultrasound: Sterile probe cover and gel used Ultrasound Image Saved?: Yes Number of Attempts (See previous attempts in note section): 1 Procedure Tolerated: No Complications Procedure Outcome: Successful Performed By: Carmelo Munoz Central Venous Line Placement Date Performed: 06/29/24 Procedure Time: 08:22 Procedure Location: Operating Room Requesting Provider: Carmelo Munoz Standard Monitors Applied: ECG, Blood Pressure and SpO2 Pt. Position: Supine Timeout Performed: No Sedation Given (Indicate Dose Given): No Sedation given Patient Mental Status: Performed under general anesthesia Sterility: Hand Hygiene, Surgical Cap, Surgical Mask, Sterile Gloves, Sterile Drape/Sheet and Chlorhexidine Laterality: Right Insertion Site: Internal Jugular (IJ) Central Line Type: Other (10 cm 18 ga catheter. ) Insertion Procedure: Vessel accessed with catheter over needle, catheter advanced Dressing: Sorbaview Dressing Placed and Other (stat lock) Catheter Depth at Skin (cm): 10 Placement Confirmation: Other Ultrasound: Sterile probe cover and gel used Ultrasound Image Saved?: Yes Number of Attempts (See previous attempts in note section): 1 Procedure Tolerated: No Complications Procedure Outcome: Successful Performed By: Carmelo Munoz
[2024-06-29] MEDS: Bupivacaine 0.25% Pres-Free 30 ML VIAL ×2 (09:29→12:30)
--- NOTE | 2024-06-29 11:55 | BOWEL_PTH ---
PATIENT: Kae Forrest LOC: U#:[id number] AGE/SX: 73/F ROOM: RE06/29/[address]: Elvis Colon : 1950 BED: A DIS: 07/17/2024 SPEC #: [id number] RECD: 06/29/24 15:41 STATUS: RADHA REMatt #: [id number] FLOR: 06/29/24 11:[address]: Elvis Colon DEPT: Surgical Specimen RECD BY: Marissa Mcgowan ENTERED: 06/29/24 15:42 SP TYPE: Bowel OTHR DR: Nikolas Matos Tissues: 1 - BOWEL RESECTION(OTHER) Procedures: GROSS AND MICRO LEVEL 5 Comments: [id number]
[2024-06-29] MEDS: Bupivacaine LIPOSOME/PF 133 MG/10 ML VIAL IJ (12:00)
[2024-06-29] MEDS: Normal Saline 20 ML VIAL (12:00)
--- NOTE | 2024-06-29 13:04 | ROE_ITS ---
Operative Note Operative Note Refer to Anesthesia Record Procedure Description: Procedures: 1. Diagnostic laparoscopy 2. Exploratory laparotomy 3. (Unusually) extensive lysis of adhesions 4. Small bowel resection 5. Enteroenterostomy 6. Flexible colonoscopy 7. Bilateral Laparoscopic TAP block Preoperative Diagnosis: Chronic abdominal pain, Chronic small bowel obstructions, Sigmoid stricture Postoperative Diagnosis: Hostile abdomen, Intra-abdominal adhesions Surgeon: Graham Colon 2nd Surgeon: Fernando Rizo 2nd surgeon attestation: Dr. Rzio served as a second surgeon since no qualified or first assist registered nurse was available. Assist: KIMBERLY Logan Anesthesia: General Anesthesiologist: Carmelo Indication: 73-year-old woman with severe, chronic left sided abdominal pain with many CT scans showing the same loops of small bowel as the problem. Severe symptoms ever since a colostomy reversal 7 years ago. Also has a known sigmoid stricture. Prior pathology reports from her previous operations do NOT raise concern for inflammatory bowel disease. Findings: Severe intra-abdominal adhesions. Dense nest of small bowel adherent against left abdominal sidewall at prior colostomy closure site and nearby. The small bowel was also adherent to the ascending colon posterior and many interloop adhesions to itself. This nest was resected en bloc and a handsewn, 2 layer anastomosis of small bowel to small bowel was created. Careful inspection to ensure no missed enterotomies was made. Decision was made against exploring the pelvis secondary to the adhesion disease. Repeat flexible colonoscopy showed stricture area sufficiently patent and seemingly improved - likely freed up after resecting the small bowel which had been directly over top of this area. Complications: None Estimated Blood Loss: 100 cc Urine Output: see anesthesia record Specimens removed: Mid?gut small bowel resection (~25 cm) Grafts or implants: None Drains: 19 Tajik Isaiah drain left across the abdomen and pelvis Procedure in detail: Written consent was obtained from the patient who was in agreement the risks, the benefits and indications for the procedure. The patient was taken to the operating suite and laid supine on the operating table with RIGHT arm tucked. Preoperative antibiotic prophylaxis was given. Venodynes were in place. Heparin subcutaneous had been given(HIT panel negative). General anesthesia was administered which was tolerated very well. A Lay catheter was placed. Next we prepped and draped the abdomen in sterile fashion. A timeout was performed. When we were all in agreement we began the procedure. Local anesthetic was injected. Just above the left costal margin a small stab incision was made and a Veress needle was used to insufflate the abdomen. The patient did NOT tolerate this well and we had to let down the pneumoperitoneum for about 3 or 4 minutes. Releasing pneumoperitoneum allowed her hemodynamics to normalize in the next insufflation attempt was successful and there was no hemodynamic instability. With anesthesia's agreement, we proceeded to begin the surgical portion of the case. A 5 mm Optiview trocar was used to enter the abdomen under direct visualization. We had a nice pocket of space in the left upper quadrant and above the liver . But that was it. The remainder of the abdomen was completely socked in(omental adhesions to the midline laparotomy incisions and to the right subcostal incision). We were able to place another 5 mm port just below the right subcostal margin and above her subcostal incision site. This was under visualization. Slow and tedious laparoscopic lysis of adhesions was performed using a LigaSure. Omental adhesions against the anterior abdominal wall were taken down first in the right upper quadrant and then across to the left upper quadrant and throughout the entire midline. The right lower quadrant was relatively free of adhesions. The transverse colon was easily identified and we were able to drop this down by releasing the omental adhesions on the anterior abdominal wall. This was done carefully and no injury to this segment of colon or the ascending colon/cecum was made. At this point we then turned our attention to the left lateral sidewall and left lower quadrant which was the only remaining location for adhesions. The left upper quadrant adhesions that remained were left alone since the transverse colon was making its turn in this area(because of the prior segmental colectomy) and this was not the site of clinical concern. Using a combination of sharp dissection using laparoscopic scissors and the LigaSure for hemostasis, we diss ected off the anterior abdominal sidewall directly beneath the colostomy closure. In this area we encountered dense, fibrous scar tissue and very tight adhesions. A nest of scar tissue and small bowel was uncovered and directly adherent against the prior colostomy closure. Everything was continuous with itself and we were unable to clearly identify or create a plane between these 2. Sharp and tedious dissection was performed getting the small bowel off the abdominal wall/peritoneum/scar. The small bowel had an inflamed appearance to it and this was the exact location of all of the patient's pain on every encounter and the location of concern on CT scan. Multiple serosal tears were made and also multiple enterotomies were made on this segment of small bowel as it was removed and peeled off the abdominal sidewall. There is scant spillage, but overall very minimal. The enterotomies were mostly small and again, no significant incontinence were being expressed during our exploration. We carried the dissection all the way down to the left lower quadrant and at that location we found more adhesions and more small bowel loops intertwined with themselves, however this small bowel did not appear to be inflamed and did not represent the small bowel of concern on the CT scans. We decided to leave this area alone and focused on the problem area which was consistent with our clinical and radiographic concerns. After a few hours of this dissection, we felt that we had exposed the small bowel all the way down to where the descending colon was. It was difficult to decipher where small bowel met presumable colon and so we decided to make a laparotomy incision. We used her old midline incision from just above the umbilicus, through/around the umbilicus and down to just above the pubic symphysis. Electrocautery was used for hemostasis. We placed an Rojelio wound protector. Through our laparotomy incision we were able to expose the left sidewall and paracolic gutter. The dissection continued to be very tedious and difficult. It was obvious that we had the descending colon densely adherent to the small bowel. It is unclear to me if this is a colon?to?small bowel (coloenteric) fistula chronically but the tissue planes were extremely difficult and densely adherent and continuous with 1 another. We continued sharp dissection with Metzenbaum scissors and continued to make many small enterotomies in the small bowel?side of the adhesions. After more than an hour of dissection like this, we were finally able to get the nest of small bowel free of the descending colon beneath it. It was also completely free of the abdominal wall where the colostomy closure had been. We were confident that this was the small bowel that had been causing her pain for so long. This nest of adhesions was full of enterotomies and serosal tears and completely battered and non-viable. In truth, even if it had had no injury and had looked viable, I would not have the left it because it has an appearance of being inflamed and I cannot help but wonder if there is fistula disease in between these loops amongst themselves. In any event, this segment of small bowel was 1 continuous segment and it needed to be resected and so we did that. The overall length was probably about 25-30 cm or so. The 2 ends, proximal and distal, were completely viable and healthy. The specimen was passed off the table and put in formalin. We did have a couple of visible, small serosal tears on the colon itself and we repaired these with 3-0 Vicryl Lembert sutures. Careful inspection of the descending colon where we had performed our dissection revealed no visible full?thickness injuries. We were certainly suspicious of them because of the tedious and difficult dissection, but nowhere did not appear that there was a leak. At this point the procedure had been so difficult we decided against further exploration down into the pelvis to revise her anastomosis(because of the stricture). We felt the risk of further small bowel injury was very likely and we were not even sure we would get enough exposure to be able to perform a reasonable revision. Further, there was some speculation at this point in the procedure, that the small bowel nest of dense adhesions had been tethered down, onto/against the colon. This led us to the possible presumption that perhaps this mass (nest) of small bowel was causing a functional stricture from external compression of the colon at this location(rather than a true anastomotic stricture) which is what had been seen on colonoscopy. We further felt that balloon dilation, colonic stent or other revisional efforts could be attempted in the colon, if necessary or needed. In standard fashion we performed an end-to-end 2?layer handsewn anastomosis. Hemostasis was excellent. Next we put a cap on the Rojelio wound protector and we performed extensive washout with the laparoscopic irrigation. We then performed a bilateral TAP block under direct visualization. We rechecked for hemostasis which was excellent. There was no bile leakage anywhere. We left a Isaiah drain draped across the lower abdomen from the left paracolic gutter where most of the dissection had been all the way across to the right lower quadrant and out one of the 5 mm port sites. We closed the laparotomy incision with 0 PDS through the fascia. We injected some of the local anesthetic directly into the laparotomy wound. The skin was closed with eric and a jc dressing placed. We removed the 5 mm ports. The skin at those sites was closed with eric. Next we introduced a flexible colonoscope with the thought that perhaps we would attempt to dilate the stricture one time while she is still under anesthesia. The flexible scope was easily passed up and into the sigmoid colon and at that point the area of stricture was again noticed but noticeably and drastically much less than before. Judging by the depth of the colonoscope, it was the same region where we had done all of our dissection. We felt that less manipulation was better at this point and that there had already been noticeable/substantial improvement because of removing the small bowel off of this area and perhaps that was indeed the only reason this had been a tight narrowing (stricture). The sponge, instrument and sharps count was correct x3 at the end of the procedure. The patient tolerated the procedure well and was taken to the PACU in hemodynamically stable condition. Date of Procedure: 06/29/24
[2024-06-29] MEDS: HYDROmorphone 1 MG/ML SYR IVP ×4 (14:22→16:22)
--- NOTE | 2024-06-29 15:30 | W.ANESPOSTOP ---
Postoperative Evaluation Date, Time and Location Date Performed: 06/29/24 Time Performed: 15:30 Patient Location: PACU Vital Signs Most Recent Imported Vital Signs: Most Recent Vital Signs Temp Pulse Resp BP Pulse Ox 36.8 C 92 H 19 117/49 L 94 06/29/24 15:21 06/29/24 15:26 06/29/24 15:26 06/29/24 15:26 06/29/24 15:26 Pain Score Most Recent Pain Score: Most Recent Pain Score Pain Level 9 06/29/24 15:20 Assessment Mental Status: Awake (Alert & Oriented to Patient Baseline) Airway and Respiratory Function: Patent airway with normal (patient baseline) respiratory exam Cardiovascular Function: Hemodynamically Stable Hydration Status: Adequately Hydrated Nausea & Vomiting: Active Nausea or Vomiting Present Nausea and Vomiting Management: Nausea and vomiting active, being addressed with medication Pain: Pain is tolerable per patient Peripheral Nerve Block: Patient did not receive a nerve block
--- NOTE | 2024-06-29 17:31 | W.ANESPOSTOP ---
Postoperative Evaluation Date, Time and Location Date Performed: 06/29/24 Time Performed: 17:00 Patient Location: PACU Vital Signs Most Recent Imported Vital Signs: Most Recent Vital Signs Temp Pulse Resp BP Pulse Ox 37.1 C 94 H 11 L 114/52 L 94 06/29/24 17:01 06/29/24 17:01 06/29/24 17:01 06/29/24 17:01 06/29/24 17:01 Most Recent Vital Signs Temp Pulse Resp BP Pulse Ox 36.8 C 92 H 19 117/49 L 94 06/29/24 15:21 06/29/24 15:26 06/29/24 15:26 06/29/24 15:26 06/29/24 15:26 Pain Score Most Recent Pain Score: Most Recent Pain Score Pain Level 5 06/29/24 17:05 Assessment Mental Status: Awake (Alert & Oriented to Patient Baseline) Airway and Respiratory Function: Patent airway with normal (patient baseline) respiratory exam Cardiovascular Function: Hemodynamically Stable Hydration Status: Adequately Hydrated Nausea & Vomiting: No Nausea or Vomiting Pain: Pain is tolerable per patient Peripheral Nerve Block: Patient did not receive a nerve block Postoperative Comments:: Patient has been of NorEpi for about 40 minutes. To be heading to the floor. MAPS high 60s low 70s, systolics in the 110s-120s, diastolics 40s-50s. I have discussed with Dr. Colon and is good for the floor.
[2024-06-29] MEDS: Normal Saline Flush 10 ML SYR IV ×4 (17:32→23:13)
[2024-06-29] MEDS: MORPHine 2 MG/ML SYR IVP ×2 (18:08→20:30)
[2024-06-29] MEDS: Lactated Ringers 1,000 ML 125 ML IV (18:11)
[2024-06-29] MEDS: ACETAMINOPHEN 1,000 MG/100 ML BAG 400 MG IVPB (20:18)
[2024-06-29] MEDS: CIPROFLOXACIN 400 MG/200 ML BAG 200 MG IVPB (20:39)
[2024-06-29] MEDS: Heparin 5,000 UNITS/ML VIAL 5000 UNITS SC (20:39)
[2024-06-29] MEDS: Levalbuterol HFA 15 GM INH 2 PUFF IH (21:51)
[2024-06-29] MEDS: Insulin Aspart 300 UNITS/3 ML PEN SC (22:54)
[2024-06-29] MEDS: HYDROmorphone 2 MG/ML SYR 0.5 MG IVP (23:15)
[2024-06-30] VITALS (8 sets, daily range): BP systolic 145–160; BP diastolic 60–86; PULSE 100–105; RESP 18–20; TEMP 36.7–36.9; O2SAT 85–97
[2024-06-30] MEDS: metroNIDAZOLE 500 MG/100 ML BAG 100 MG IVPB ×3 (00:53→17:26)
[2024-06-30] MEDS: Levalbuterol HFA 15 GM INH 2 PUFF IH ×4 (01:33→20:38)
[2024-06-30] MEDS: ACETAMINOPHEN 1,000 MG/100 ML BAG 400 MG IVPB ×2 (01:59→14:41)
[2024-06-30] MEDS: HYDROmorphone 2 MG/ML SYR 0.5 MG IVP ×4 (03:59→22:34)
[2024-06-30] MEDS: Lactated Ringers 1,000 ML 125 ML IV ×3 (04:35→23:48)
[2024-06-30] MEDS: HYDROmorphone 2 MG/ML SYR 1 MG IVP ×4 (06:01→20:00)
[2024-06-30] MEDS: Normal Saline Flush 10 ML SYR ×2 (06:58)
[2024-06-30 07:14] LABS: Abs Immature Grans 0.02 10^3/uL (0.0-0.06); Absolute Basophil Count 0.02 10^3/uL (0.0-0.2); Absolute Lymphocyte Count 1.22 10^3/uL (1.2-3.4); Absolute Monocyte Count 0.34 10^3/uL (0.1-0.8); Absolute Neutrophil Count 3.15 10^3/uL (1.2-6.7); Basophils % 0.4 %; HCT 33.5 % (36.0-46.0); HGB 11.1 g/dL (11.2-15.7); Immature Grans % 0.4 %; Lymphocytes % 25.7 %; MCH 30.9 pg (27.0-33.0); MCHC 33.1 % (32.0-36.0); MCV 93 fL (80-95); Monocytes % 7.2 %; Neutrophils % 66.3 %; RBC 3.59 10^6/uL (3.93-5.22); RDW 13.1 % (11.7-14.6); WBC 4.75 10^3/uL (4.4-10.8)
[2024-06-30 07:26] LABS: Anion Gap 5.3 mmol/L (3-11); BUN 8 mg/dL (7-18); CO2 29.7 mmol/L (21.0-32.0); CREATININE 0.9 mg/dL (0.55-1.02); Calcium 8.4 mg/dL (8.5-10.1); Chloride 106 mmol/L (98-107); Estimated GFR 67.92 (mL/min/1.73m2); Glucose 156 mg/dL (74-106); Potassium 3.8 mmol/L (3.5-5.1); Sodium 141 mmol/L (136-145)
--- NOTE | 2024-06-30 07:29 | NUR.NOTE ---
Nursing Note: pt rang a few times for pain medication. I went and answered the light multiple times. I reported back to the nurse Rianna Louise that the pt was in pain and she needed something for it. Pt rang again and was very upset, i simply told the pt she was getting the medication out now and she said she was going to report the nurse in for failure to give medication. I told the pt that she has other pts and has been giving medication and she cant leave a room to give medication until her meds were passed. The pt also say that she was going to report me in as well. I reported back to the nurse every time the pt rang.
[2024-06-30 07:35] LABS: Diff Comment PLT Morph Reviewed; RBC Morphology Normal
--- NOTE | 2024-06-30 07:49 | W.PM.PROGNOT ---
Date of Service Date of service: 06/30/24 Time of Service: 07:49 Assessment and Plan Assessment and plan (1) Abdominal discomfort: Status: Acute Assessment and plan: 73-year-old woman is postop day 1 from an exploratory laparotomy with extensive lysis of adhesions and expected small bowel resection. She is hemodynamically stable and doing as expected. Mild sinus tachycardia is nonspecific. She is having significant right?sided Alexandre-abdominal pain that is requiring Dilaudid. On all of her prior hospitalizations her abdominal pain has been exquisite, severe and has required Dilaudid. My only surprise is that she really has no left?sided pain today and it is all on the right. Certainly extensive lysis of adhesions was performed on the right?side where her subcostal incision is. The adhesions lysed on the right?side were predominantly omentum adhesions against abdominal wall. Overall, her heart rate could be related to the pain, she is also on a beta-braxton at home and probably did not absorb much of her oral beta-braxton with the bilious NG tube output. I will convert her to low?dose IV beta-braxton until she is taking p.o. She has an expected postop ileus at this time since she reports no flatus yet. Her drain output is benign in both volume and quality. Her metabolic lab work is grossly normal, kidney function normal and she is having excellent urine output. My biggest concern in her is HIT. We did a platelet/HIT workup outpatient after her last hospitalization had a significant thrombocytopenia develop. This workup was negative. However the CBC this morning shows significantly aggregated platelets and a decreased count. I am very suspicious for HIT based off of this and the prior hospitalization. She has no clinical evidence of any thrombotic events taking place in her body at this time, but we certainly do not want that to start happening. I stopped her SC heparin this morning. She is on a baby aspirin and I have continued this which will have some protective antithrombotic benefit. I calculated the 4T's which gives her 6/8 points making the likelihood of HIT high and for that reason I think starting an argatroban drip makes sense. I am not really worried about postop bleeding since we have a surgical drain in place and the argatroban has a very short?half-life and can easily be turned off if she starts to have a bleeding issue. I think the risk of bleeding is minimal compared to the possible risk of thrombotic complications related to HIT. OVERALL PLAN: Sips of ice as needed, keep NG tube for now until some flatus Maintain/continue IV antibiotics for now because there was some bacterial spillage yesterday Stop heparin/start argatroban drip for presumed HIT, cont ASA 81 Monitor drain for bleeding Out of bed at least 3?4 times during the day Incentive spirometry/respiratory therapy/inhalers IV beta-braxton until taking p.o. BRAIN stimulator is back on Analgesia as needed (patient is refusing Toradol). Subjective Subjective Interval history since last seen: Overnight no events. At the bedside her only complaint is RIGHT?sided abdominal discomfort. The left side is not bothering her at all. She has NOT passed any gas. Scant output from the NG tube is bilious but low?volume. Excellent urine output overnight. No blood pressure issues since PACU. She denies leg pain or leg swelling. She denies chest discomfort or shortness of breath. I helped her turn her brain stimulator BACK ON at the bedside. Exam Narrative Exam Narrative: Gen: Non-toxic, comfortable and interactive Neuro: Alert and oriented x3 Psych: Good mood and affect. Good insight and understanding into condition. Chest: Non-labored breathing, no wheezing, no visible shortness of breath. Heart: Regular (heart rate 104x) Extremities: Free range of motion x 4. Her bilateral lower extremities are not swollen or edematous. Abdomen: Soft, no noticeable distention, very tender in the right hemiabdomen, the left side is not very tender at all which is surprising. Dressings are intact and otherwise clean and dry. DRAINS: NG tube: 300-400 cc out, bilious FABRICE drain: 15-20 cc of serosanguineous fluid. There is NOT any bile tinge or purulence to any of the fluid. Lay catheter: Clear urine, copious volume Objective Last Vital Signs Temp 98.1 F 06/30/24 03:29 Pulse 103 H 06/30/24 03:29 Resp 18 06/30/24 03:29 BP 153/86 H 06/30/24 03:29 Pulse Ox 97 06/30/24 03:29 Laboratory Results - last 24 hr 06/30/24 06/30/24 06:36 06:42 WBC 4.75 RBC 3.59 L Hgb 11.1 L Hct 33.5 L MCV 93 MCH 30.9 MCHC 33.1 RDW 13.1 Plt Count MPV Immature Gran % 0.4 Neutrophils % 66.3 Lymphocytes % 25.7 Monocytes % 7.2 Eosinophils % 0.0 Basophils % 0.4 Nucleated RBC % 0.0 Absolute Neutrophils 3.15 Absolute Lymphocytes 1.22 Absolute Monocytes 0.34 Absolute Eosinophils 0.00 Absolute Basophils 0.02 RBC Morphology Normal Sodium 141 Potassium 3.8 Chloride 106 Carbon Dioxide 29.7 Anion Gap 5.3 BUN 8 Creatinine 0.9 Est GFR (CKD-EPI 2020) 67.92 Glucose 156 H Calcium 8.4 L Time Spent with Patient Time Spent with Patient: 25-34 minutes Time was spent: preparing to see the patient(eg.review tests), obtaining and/or reviewing separately otained hiistory, ordering medications,tests, procedures, indepentently interpreting results, counseling the patient and care coordination
--- NOTE | 2024-06-30 07:55 | RESPIRATORY ---
RT attempted to administer morning Xopenex and Symbicort inhalers. Pt reported severe abdomen pain after the first inhalation of her Xopenex inhaler and stated she was unable to continue with remainder at this time.
[2024-06-30] MEDS: Metoprolol CR 50 MG TABCR PO (08:23)
[2024-06-30] MEDS: Aspirin E.C. 81 MG TABEC PO (08:23)
[2024-06-30] MEDS: Lactated Ringers 500 ML IV (08:23)
[2024-06-30] MEDS: Heparin 5,000 UNITS/ML VIAL 5000 UNITS SC (08:24)
[2024-06-30] MEDS: CIPROFLOXACIN 400 MG/200 ML BAG 200 MG IVPB ×2 (08:24→20:00)
[2024-06-30] MEDS: Normal Saline Flush 10 ML SYR IVP ×2 (08:29→22:17)
[2024-06-30] MEDS: Insulin Aspart 300 UNITS/3 ML PEN SC ×4 (08:48→22:26)
--- NOTE | 2024-06-30 11:30 | PDOC.CMIN ---
Date of service: 06/30/24 Time of Service: 11:30 Care Management Initial Assmt Initial Assessment Reason for Hospitalization: abdominal pain Functional Status/Living Situation Patient Presentation: Kae was sitting up in bed visiting with her when CM met with her. She reported that she was in a lot of pain at the time. Kae was admitted on 06/29/24 with abdominal pain. She went to the OR for an exploratory lap with a small bowel resection. She remains NPO and still has an NG tube, Kae reported that she anticipates remaining hospitalized for about 5 days. She lives with her in [place].They have 3 children who live in [place] and from whom they are estranged. Kae is independent at baseline and does not receive any community services.She uses a cane and a walker for ambulatory assistance. Town of Residence: [place], [place] Resides with: Spouse ( Joon) Significant Other/Family: Out of area (3 estranged children in [place]) Natural Supports: Employment Status: Retired Instrumental Activities of Daily Living (ADLs): Independent Medications Medication Management: No Issues/Barriers identified Physical Functioning/Mobility Assistive Device: cane and walker Advance Directives Advance Directives: Do you have an Advance Directive: N 02/29/24 01:50 AD On File at [facility]: N 02/28/24 21:44 Date Asked 06/24/24 06/24/24 09:37 AD Date Reviewed COLST On File at [facility] COLST Date Scanned Code Status Resuscitation Status Full Code Portal Pt does not currently have a portal and education provided: No Insurance Coverage/Financial Issues Insurance: BC/BS out of state Care Team Visit Care Team Role Provider Type Nikolas Matos Primary Care Provider NON-[facility] STAFF PHYSICIAN Elvis Colon MD Admit Provider [facility] STAFF PHYSICIAN Attending Provider Discharge Potential Discharge Needs: Surgical F/U Appt Anticipated Barriers to Discharge: None Identified Patient/Family Education Needs: Review discharge instructions, discuss Ask Me Three Transportation: Private vehicle Plan: Anticipate Kae will be discharged home, possibly with new home health services, when medically cleared. She will follow up with her PCP and plan of care and transport with family. CM will follow and continue to assess for discharge needs. Social Determinants of Health Screening Social Determinants of Health last assessed: 07/01/24 Will the Patient Participate in the Screening?: Yes Do you worry about having a steady place to live?: no Problems where you live: no known problems In the past 12 months, have you had to go without electric, gas, oil or water in your home?: no Have you or anyone in your house had to go without enough food to eat?: no Has lack of transportation kept you from medical appointments or from doing things needed for daily living?: no Has anyone in your life made you feel unsafe or unsupported?: no How hard is it for you to pay for the very basics like food, housing, medical care, and heating? Would you say it is:: Not hard at all Do you want help finding or keeping work or a job?: I do not need or want help If for any reason you need help with day-to-day activities such as bathing, preparing meals, shopping, managing finances, etc., do you get the help you need?: I don?t need any help How often do you feel lonely or isolated from those around you?: Never Do you speak a language other than British at home?: No Does the patient want assistance with any of the above?: No PFSH All Active Problems 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 (Acute) Fecal impaction in rectum (Acute) Abdominal discomfort (Acute) Arthritis (Acute) Back pain (Acute) GERD (gastroesophageal reflux disease) (Chronic) Obesity (Chronic) Claustrophobia (Acute) Osteoporosis (Chronic) Headache (Acute) Asthma with COPD (chronic obstructive pulmonary disease) (Acute) Vitamin D deficiency (Acute) Screening for colon cancer (Acute) Corns and callosities (Acute) Cubital tunnel syndrome on left (Acute) Cubital tunnel syndrome on right (Acute) Trigger finger, left middle finger (Acute) Trigger finger, right middle finger (Acute) Left carpal tunnel syndrome (Acute) Right carpal tunnel syndrome (Acute) Medical History Diabetes mellitus CAD (coronary artery disease) Parkinsons disease 02/03/23 pt has a DBS implanted for this RH Hypertension Hyperlipidemia Stenosis colon Heart block AV third degree Osteoarthritis of left knee mild Small bowel obstruction Diverticulitis PTSD (post-traumatic stress disorder) Dermatitis Anxiety Petechial rash upper and lower extremities, chronic. Started in 2018. COPD (chronic obstructive pulmonary disease) Surgical History History of colonoscopy (~02/2024) History of colostomy reversal Social History Smoking/Tobacco Use Status: Former Tobacco Use Quit Date: 06/15/11 Smoking risk assessment performed?: Yes Alcohol Intake: never Drug use: Never Substance use type: does not use Housing: house Do you feel safe at home: Yes Do you feel safe in your relationship?: Yes
[2024-06-30 11:33] LABS: HCT 34.9 % (36.0-46.0); HGB 11.5 g/dL (11.2-15.7); MCH 30.5 pg (27.0-33.0); MCV 93 fL (80-95); MPV 10.2 fL (8.0-11.0); Platelet Count 165 10^3/uL (130-400); RBC 3.77 10^6/uL (3.93-5.22); RDW 13.1 % (11.7-14.6); RDW-SD 44.1 fL; WBC 5.57 10^3/uL (4.4-10.8)
[2024-06-30 11:47] LABS: PTT Activated 18.6 sec (20.6-30.2)
[2024-06-30] MEDS: Metoprolol 5 MG/5 ML VIAL 2.5 MG IVP ×2 (12:40→18:07)
[2024-06-30] MEDS: Budesonide/Formoterol 80/4.5 6.9 GM 60 PUFF INH IH (20:38)
[2024-06-30 22:42] LABS: PTT Activated 36.4 sec (20.6-30.2)
--- NOTE | 2024-06-30 23:22 | NUR.NOTE ---
Nursing Note: Ally at tele pharmacy called regarding argatroban, PTT 36.4 up from 18.6. According to medication protocol this is in parameters w/ a redraw of PTT at 4 hours. Confirmed this w/ tele pharmacy that drip is at the correct therapeutic dose at this time.
[2024-07-01] MEDS: Metoprolol 5 MG/5 ML VIAL 2.5 MG IVP ×4 (01:09→17:48)
[2024-07-01] MEDS: metroNIDAZOLE 500 MG/100 ML BAG 100 MG IVPB ×3 (01:09→18:22)
[2024-07-01] MEDS: HYDROmorphone 2 MG/ML SYR 1 MG IVP ×6 (01:16→23:29)
[2024-07-01] MEDS: Levalbuterol HFA 15 GM INH 2 PUFF IH ×4 (02:01→20:16)
[2024-07-01 02:29] LABS: PTT Activated 47.7 sec (20.6-30.2)
[2024-07-01] MEDS: Ondansetron 4 MG/2 ML VIAL IVP ×3 (06:38→19:28)
[2024-07-01 06:42] LABS: Abs Immature Grans 0.12 10^3/uL (0.0-0.06); Absolute Basophil Count 0.07 10^3/uL (0.0-0.2); Absolute Eosinophil Count 0.24 10^3/uL (0.0-0.7); Absolute Lymphocyte Count 1.54 10^3/uL (1.2-3.4); Absolute Monocyte Count 0.89 10^3/uL (0.1-0.8); Absolute Neutrophil Count 7.13 10^3/uL (1.2-6.7); Basophils % 0.7 %; Eosinophils % 2.4 %; HGB 11.4 g/dL (11.2-15.7); Immature Grans % 1.2 %; Lymphocytes % 15.4 %; MCH 30.7 pg (27.0-33.0); MCHC 33.5 % (32.0-36.0); MCV 92 fL (80-95); MPV 10.4 fL (8.0-11.0); Monocytes % 8.9 %; Neutrophils % 71.4 %; Platelet Count 173 10^3/uL (130-400); RBC 3.71 10^6/uL (3.93-5.22); RDW 13.4 % (11.7-14.6); WBC 9.99 10^3/uL (4.4-10.8)
[2024-07-01 06:55] LABS: PTT Activated 40.8 sec (20.6-30.2)
[2024-07-01 07:27] LABS: BUN 6 mg/dL (7-18); CREATININE 0.9 mg/dL (0.55-1.02); Calcium 8.4 mg/dL (8.5-10.1); Chloride 99 mmol/L (98-107); Estimated GFR 67.92 (mL/min/1.73m2); Glucose 164 mg/dL (74-106); Potassium 3.7 mmol/L (3.5-5.1); Sodium 138 mmol/L (136-145)
[2024-07-01 07:43] VITALS: BP 152/61; PULSE 115; RESP 18; TEMP 36.8; O2SAT 95
[2024-07-01] MEDS: Budesonide/Formoterol 80/4.5 6.9 GM 60 PUFF INH IH ×2 (08:37→20:16)
[2024-07-01 08:41] VITALS: O2SAT 92
[2024-07-01] MEDS: Lactated Ringers 1,000 ML 125 ML IV (08:51)
[2024-07-01] MEDS: Insulin Aspart 300 UNITS/3 ML PEN SC ×4 (08:58→21:55)
[2024-07-01] MEDS: Normal Saline Flush 10 ML SYR IVP ×3 (09:01→11:44)
[2024-07-01] MEDS: ACETAMINOPHEN 1,000 MG/100 ML BAG 400 MG IVPB ×2 (09:14→17:47)
[2024-07-01] MEDS: Metoprolol CR 50 MG TABCR PO (09:17)
[2024-07-01] MEDS: Aspirin E.C. 81 MG TABEC PO (09:17)
--- NOTE | 2024-07-01 09:27 | PT.INIE ---
PT Notes Visit Reasons: SBO Physical Therapy Inpatient Initial Evaluation Date: 07/01/2024 Referring Doctor: Elvis Colon MD PT Orders: PT CONSULT: Elderly, post-surgical, assist with ambulation Precautions: Fall. Standard. Activity as tolerated. Patient Profile/Admitting Diagnosis: Patient is a 73-year-old female patient with chronic abdominal pain, chronic small bowel obstruction, and sigmoid stricture status post exploratory laparotomy with lysis of adhesion, small bowel resection, enteroenterostomy, flexible colonoscopy, and B laparoscopic tap block on postoperative day 1. PMHX: All Active Problems (Updated 05/18/24 @ 19:18 by Elvis Colon MD) 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 (Acute) Fecal impaction in rectum (Acute) Abdominal discomfort (Acute) Arthritis (Acute) Back pain (Acute) GERD (gastroesophageal reflux disease) (Chronic) Obesity (Chronic) Claustrophobia (Acute) Osteoporosis (Chronic) Headache (Acute) Asthma with COPD (chronic obstructive pulmonary disease) (Acute) Vitamin D deficiency (Acute) Screening for colon cancer (Acute) Corns and callosities (Acute) Cubital tunnel syndrome on left (Acute) Cubital tunnel syndrome on right (Acute) Trigger finger, left middle finger (Acute) Trigger finger, right middle finger (Acute) Left carpal tunnel syndrome (Acute) Right carpal tunnel syndrome (Acute) Medical History Diabetes mellitus CAD (coronary artery disease) Parkinsons disease 02/03/23 pt has a DBS implanted for this RH Hypertension Hyperlipidemia Stenosis colon Heart block AV third degree Osteoarthritis of left knee mildSmall bowel obstruction Diverticulitis PTSD (post-traumatic stress disorder) Dermatitis Anxiety Petechial rash upper and lower extremities, chronic. Started in 2018. COPD (chronic obstructive pulmonary disease) Surgical History History of colonoscopy (~02/2024) History of colostomy reversal Social History/Home Situation: Lives with in a private home with 6 steps to enter with rails on B sides. Independent with all mobility ADL performance prior to surgery. Equipment Owned/DME: None Subjective: Significant pain in abdominal area but agreeable to getting out of bed after care. KATIE Lester was able to safely assist patient onto bedside recliner but PT came back about half an hour later to transfer patient back to bed as she was very uncomfortable. Nauseaous after transfer back onto bed. Nurse Paula made aware. Objective: General Observation: NGT in place, FABRICE drain in place, Iv through B UEs, starr catheter in place Mental Status: Alert and oriented as to person, place, time, and purpose. Able to pay attention, focus, and respond appropriately. Pain: 8/10 pain through surgical incision Vital Signs: Closely monitored by nursing staff ROM: Right Upper Extremity: Shoulder Flexion WFL. Shoulder abduction WFL. Elbow flexion WFL. Wrist flexion WFL. Functional opening and closing of hand WFL. Left Upper Extremity: Shoulder Flexion WFL. Shoulder abduction WFL. Elbow flexion WFL. Wrist flexion WFL. Functional opening and closing of hand WFL. Right Lower Extremity: Hip flexion WFL. Hip abduction WFL. Knee flexion WFL. Ankle dorsiflexion WFL. Ankle plantarflexion WFL. Left Lower Extremity: Hip flexion WFL. Hip abduction WFL. Knee flexion WFL. Ankle dorsiflexion WFL. Ankle plantarflexion WFL. Strength: Right Upper Extremity: Shoulder flexors 4-/5. Shoulder abductors 4-/5. Elbow flexors 4-/5. Elbow extensors 4-/5. Gunner'S Mate G strong. Left Upper Extremity: Shoulder flexors 4-/5. Shoulder abductors 4-/5. Elbow flexors 4-/5. Elbow extensors 4-/5. Gunner'S Mate G strong. Right Lower Extremity: Hip flexors 3+/5. Hip abductors 3+/5. Knee flexors 4-/5. Knee extensors 4-/5. Ankle dorsiflexors 4-/5. Ankle plantarflexors 4-/5. Left Lower Extremity: Hip flexors 3+/5. Hip abductors 3+/5. Knee flexors 4-/5. Knee extensors 4-/5. Ankle dorsiflexors 4-/5. Ankle plantarflexors 4-/5. Bed Mobility/Transfers: Minimal cueing provided for use of B hands as needed for support, movement sequence, AD management, and posture to reduce fall risk and minimize pain report Rolling with minimal assist Supine to sit minimal assist with HOB at 30 degrees Sit to stand contact guard assist with FWW Stand to sit contact guard assist with FWW Bed to reclining chair contact guard assist with FWW Reclining chair to bed contact guard assist with FWW Gait: Patient transferred with KATIE Lester from edge of bed to bedside recliner using FWW for about 7-8 steps with contact guard assist and needed to lie back down in bed as she was only able to tolerate the chair for about half an hour. Mild festination in gait seen. Balance: Static Sitting: Normal Dynamic Sitting: Normal Static Standing: Fair Dynamic Standing: Fair Special Tests: Mobility Limitations Standardized Measure [facility] AM-PAC 6 clicks Basic Mobility Inpatient Short Form: Raw Score: 18 CMS Score: 47% deficit Informed Consent/Education: Patient was instructed in purpose of PT consult and plan of care. Agreeable to proceed with established PT POC to achieve personal goals. Assessment: Patient presents with clinical signs and symptoms consistent with current/admitting diagnoses that have resulted to mobility limitations, gait instability, generalized weakness, and overall ADL decline as demonstrated by the following impairment level findings: 1. Decreased strength to B LE major muscle groups 2. Impaired sitting/standing balance 3. Impaired activity tolerance 4. Limitation of joint range of motion in 4 5. Shortness of breath 6. Pain at surgical incision site Impairments are contributing to the following functional limitations: 1. Decline in bed mobility skills 2. Decline in transfer skills 3. Difficulty with ambulation without assistive device and physical assistance 4. Increased completion time for mobility ADL performance 5. Increased risk for falls 6. Difficulty with managing steps alone safely Patient is assessed as a 87228 moderate complexity based on the following: History:73-year-old female with past medical history as indicated above Examination: Demonstrable impairment in strength, balance, and mobility level with underlying impairments and functional limitations as exhibited above as well as deficit score of 47% utilizing the [facility] Mobility Inpatient Short Form Presentation: Evolving Decision Makin moderate complexity Goals: Goals X1 week 1. Supine-Sit independent 2. Sit-Supine independent 3. Sit-Stand independent 4. Stand-Sit independent with FWW 5. Bed-Chair independent with FWW 6. Chair-Bed independent with FWW 7. Independent gait on level surface with use of FWW for at least 300 feet without report of pain nor dyspnea 8. Independent stair negotiation while holding onto B rails for at least 6 steps without report of pain nor dyspnea 9. Independent with home exercise program 10. Good static and dynamic standing balance/tolerance Plan of Care/Treatment Plan: 1-2x/day, 7 days/week x 1 week. Plan of care has been reviewed with the URGENT CARE providing the service under Physical Therapy direction. Initiate Physical Therapy intervention for pain management as needed, strengthening, bed mobility, transfers, gait, stairs, balance training, and use of assistive device. DISCHARGE RECOMMENDATIONS: [] Home with no services [] [X patient will benefit from home health PT services in order to progress mobility level using least restrictive assistive ambulatory device, assess home safety, identify additional equipment needs, and establish a functional maintenance program that will increase ability of patient to remain at home.] Home with services. [] Home with outpatient PT [] [] SNF for continued rehabilitation [] [] [facility] [] [] SNF versus LTC based on ability to participate and progress [] TREATMENT CODE/TIME: 44390 x 20 minutes for 1 unit, 98123 x 10 minutes for 1 unit (10: 19?10: 35 and 11:32?11: 46). Thank you for the opportunity to participate in the care of this patient. Lisa Maldonado PT, DPT, CLT [facility] [place], [place]
[2024-07-01] MEDS: CIPROFLOXACIN 400 MG/200 ML BAG 200 MG IVPB ×2 (10:31→20:14)
--- NOTE | 2024-07-01 10:35 | NUR.NOTE ---
In chart for quality/education review Nursing Note:
[2024-07-01 12:32] VITALS: O2SAT 97
[2024-07-01 14:43] LABS: PTT Activated 46.1 sec (20.6-30.2)
--- NOTE | 2024-07-01 14:48 | PT.INTREAT ---
PT Notes Visit Reasons: SBO Date: 07/01/2024 PRECAUTIONS: Fall. Standard. Activity as tolerated. SUBJECTIVE: Pt in bed when approached for therapy this afternoon, pt reports she has not taken her pain meds and is 10/10 for pain as of the moment. pt condition brought to charge nurse attention since the nurse taking care of pt is still at her break, pt reports she is ok to participate with therapy while waiting for nurses to administer her pain meds. OBJECTIVE: ? NGT in place, FABRICE drain in place, Iv through B UEs, starr catheter in place? PAIN: 10/10 on incision site having a difficult time with coughing VITALS: monitored by nursing Therapeutic Activities 61620: Direct one-on-one instruction in dynamic activities to improve functional performance. ?? BED MOBILITY/TRANSFERS? Rolling L/R: min A Supine-sit: ? min A? Sit-supine: ? min A? Sit-stand: ? ?not performed? Stand-sit: ?? not performed? Bed-Chair:? ? not performed? Chair-bed: not performed Provided skilled cues and instruction on performance and technique throughout. ? Therapeutic Exercises 88183: Direct one-on-one instruction in therapeutic exercises to develop strength, endurance, range of motion and flexibility. Exercises Glute sets [id number] Heel slides [id number] ankle pumps [id number] Supine clamshells [id number] Abdominal bracing during coughing to help minimize pain Provided skilled instruction in proper exercise performance Provided skilled manual cues to facilitate proper muscle recruitment and/or form: ASSESSMENT:?Pt refused to do anything else after sitting on the EOB for 5mins. pt reports the pain is unbearable and would like to rest after the bed exercises. therapist offered to return after pt has taken medication but pt reports that it is enough activity for her today. PLAN: Continue with balance training, global strengthening and general conditioning for improved safety, mobility and activity tolerance until pt is ready for DC. functional status will be updated accordingly.? Plan may be modified as symptoms dictate. TREATMENT CODE/TIME: 28267a6 20mins (2:20-2:40pm)
[2024-07-01 14:55] VITALS: BP 101/80; PULSE 117; RESP 20; TEMP 37.5; O2SAT 92
--- NOTE | 2024-07-01 16:59 | W.PM.PROGNOT ---
Date of Service Date of service: 07/01/24 Time of Service: 16:59 Assessment and Plan Assessment and plan (1) Abdominal discomfort: Status: Acute Assessment and plan: Her nasogastric tube output is still quite high, but I would expect a significant ileus after extensive lysis of adhesions. Her white blood cell count is up a little bit today, but still within normal limits. Will keep the nasogastric tube for now, and reassess in the next 24 hours. I will repeat her blood work again tomorrow. If she develops any more compelling signs of infection, then we could consider a CT scan with enteral contrast. They also may provide some therapeutic benefit for the ileus. At the moment, however, I am reassured by her exam. Will also continue the argatroban drip as the DAVID Tate exam are not yet resulted. Subjective Subjective Interval history since last seen: Dave is awake and sitting in bed today. She looks fairly comfortable. She was up to the chair earlier, and seems to be doing okay. Pain seems to be waxing and waning a little bit, but overall has improved from yesterday. It seems like it is focused mainly around her surgical drain site. She denies any nausea, but also denies any significant appetite. She still has a little bit of tachycardia and some low-grade temperatures, but no fevers. Exam GI Other: Her abdomen is soft, and not distended. She really does not have any significant bowel sounds yet. The surgical drain is serosanguineous. I removed all of her dressings today, and all of the incisions look clean, without any signs of infection. Objective Last Vital Signs Temp 99.5 F 07/01/24 14:55 Pulse 117 H 07/01/24 14:55 Resp 20 07/01/24 14:55 BP 101/80 07/01/24 14:55 Pulse Ox 92 07/01/24 14:55 Laboratory Results - last 24 hr 06/30/24 06/30/24 07/01/24 21:40 22:20 02:06 WBC RBC Hgb Hct MCV MCH MCHC RDW Plt Count MPV Immature Gran % Neutrophils % Lymphocytes % Monocytes % Eosinophils % Basophils % Nucleated RBC % Absolute Neutrophils Absolute Lymphocytes Absolute Monocytes Absolute Eosinophils Absolute Basophils APTT Cancelled 36.4 H 47.7 H Sodium Potassium Chloride Carbon Dioxide Anion Gap BUN Creatinine Est GFR (CKD-EPI 2020) Glucose Calcium 07/01/24 07/01/24 07/01/24 06:05 10:30 14:24 WBC 9.99 RBC 3.71 L Hgb 11.4 Hct 34.0 L MCV 92 MCH 30.7 MCHC 33.5 RDW 13.4 Plt Count 173 MPV 10.4 Immature Gran % 1.2 Neutrophils % 71.4 Lymphocytes % 15.4 Monocytes % 8.9 Eosinophils % 2.4 Basophils % 0.7 Nucleated RBC % 0.0 Absolute Neutrophils 7.13 H Absolute Lymphocytes 1.54 Absolute Monocytes 0.89 H Absolute Eosinophils 0.24 Absolute Basophils 0.07 APTT 40.8 H 46.0 H 46.1 H Sodium 138 Potassium 3.7 Chloride 99 Carbon Dioxide 32.0 Anion Gap 7.0 BUN 6 L Creatinine 0.9 Est GFR (CKD-EPI 2020) 67.92 Glucose 164 H Calcium 8.4 L Time Spent with Patient Time Spent with Patient: 25-34 minutes Time was spent: preparing to see the patient(eg.review tests), ordering medications,tests, procedures, indepentently interpreting results, counseling the patient and care coordination
--- NOTE | 2024-07-01 17:37 | W.ANESVAS ---
Midline Placement Date Performed: 07/01/24 Procedure Time: 17:28 Requesting Provider: Fernando Rizo Procedure Location: Med/Surg Sedation Given (Indicate Dose Given): No Sedation given Patient Mental Status: Awake Sterility: Hand Hygiene, Surgical Cap, Surgical Mask, Sterile Gloves, Sterile Drape/Sheet (towels) and Chlorhexidine Laterality: Right Insertion Site: Brachial Midline Device: PowerGlide Pro 20G Catheter Length: 10 cm Midline Procedure Procedure: 1% Lidocaine to skin and subcutaneous tissue with 25g needle and Catheter placed without resistance Dressing: Tegaderm Applied and Statlock Applied Blood Return: Present Flushes: Easily Ultrasound: Sterile probe cover and gel used Ultrasound Image Saved?: Yes Number of Attempts (See previous attempts in note section): 1 Procedure Tolerated: No Complications Procedure Outcome: Successful Procedure Comment:: Was asked to find a second point of access due to medication incompatability. She currently has a midline in her left arm that is working. Both upper and lower arms scanned with very minimal prospects of successful midline/line placement, right brachial was most likely option due to size (all over veins seen where tortuous and small. Performed By: Carmelo Munoz
[2024-07-01 17:48] VITALS: PULSE 115
[2024-07-01] MEDS: Metoprolol 5 MG/5 ML VIAL IVP ×2 (17:48→23:29)
--- NOTE | 2024-07-01 18:11 | PDOC.CMPRO ---
Date of service: 07/01/24 Time of Service: 18:11 Care Management Progress Note Progress Note Text Progress Note Text: Kae was lying in bed looking very uncomfortable when CM met with her. She admitted that she continues to have a lot of pain. She had been medicated about 15 minutes before CM arrived and shared that she was starting to get some relief. Unfortunately, she was very nauseated at the time which she felt was related to her pain medication. Kae remains NPO and still has an NG tube with high output. Per the surgeon, an ileus is to be expected after the extensive lysis of adhesions. As Kae was feeling so uncomfortable, CM kept the visit brief to allow her time to rest. Discharge Potential Discharge Needs: Surgical F/U Appt Anticipated Barriers to Discharge: Medical Status Patient/Family Education Needs: Review discharge instructions, discuss Ask Me Three Transportation: Private vehicle Plan: Anticipate Kae will be discharged home when medically stable. She may benefit from new home health services for nursing, depending on the course of her illness. She will follow up with her community providers and plan of care and transport with her . CM will follow and continue to assess for discharge needs. Social Determinants of Health Screening Social Determinants of Health last assessed: 07/01/24 Will the Patient Participate in the Screening?: Yes Do you worry about having a steady place to live?: no Problems where you live: no known problems In the past 12 months, have you had to go without electric, gas, oil or water in your home?: no Have you or anyone in your house had to go without enough food to eat?: no Has lack of transportation kept you from medical appointments or from doing things needed for daily living?: no Has anyone in your life made you feel unsafe or unsupported?: no How hard is it for you to pay for the very basics like food, housing, medical care, and heating? Would you say it is:: Not hard at all Do you want help finding or keeping work or a job?: I do not need or want help If for any reason you need help with day-to-day activities such as bathing, preparing meals, shopping, managing finances, etc., do you get the help you need?: I don?t need any help How often do you feel lonely or isolated from those around you?: Never Do you speak a language other than Malawian at home?: No Does the patient want assistance with any of the above?: No
[2024-07-01 18:47] LABS: PTT Activated 33.6 sec (20.6-30.2)
[2024-07-01 22:55] LABS: PTT Activated 31.1 sec (20.6-30.2)
[2024-07-01 23:03] VITALS: BP 146/57; PULSE 103; RESP 20; TEMP 36.6; O2SAT 93
--- NOTE | 2024-07-01 23:40 | NUR.NOTE ---
Nursing Note: PTT 31.1, no increase to agrotraban drip as this is in parameters. Will recheck PTT in 4 hours as per policy
[2024-07-02] MEDS: metroNIDAZOLE 500 MG/100 ML BAG 100 MG IVPB ×3 (01:51→18:10)
[2024-07-02 03:10] LABS: PTT Activated 47.9 sec (20.6-30.2)
--- NOTE | 2024-07-02 03:44 | NUR.NOTE ---
Nursing Note:PTT 47.9 argotroban not adjusted at this time as PTT within 1.5-3x first PTT. Next PTT in 4 hours as per policy
[2024-07-02] MEDS: HYDROmorphone 2 MG/ML SYR 1 MG IVP ×2 (04:01→18:41)
[2024-07-02] MEDS: Metoprolol 5 MG/5 ML VIAL IVP ×3 (05:59→18:16)
[2024-07-02] MEDS: Lactated Ringers 1,000 ML 125 ML IV (05:59)
[2024-07-02 06:25] LABS: Abs Immature Grans 0.06 10^3/uL (0.0-0.06); Absolute Basophil Count 0.06 10^3/uL (0.0-0.2); Absolute Eosinophil Count 0.05 10^3/uL (0.0-0.7); Absolute Lymphocyte Count 1.35 10^3/uL (1.2-3.4); Absolute Monocyte Count 0.75 10^3/uL (0.1-0.8); Absolute Neutrophil Count 7.53 10^3/uL (1.2-6.7); Basophils % 0.6 %; Eosinophils % 0.5 %; HCT 30.2 % (36.0-46.0); HGB 10.1 g/dL (11.2-15.7); Immature Grans % 0.6 %; Lymphocytes % 13.8 %; MCHC 33.4 % (32.0-36.0); MCV 93 fL (80-95); MPV 10.4 fL (8.0-11.0); Monocytes % 7.7 %; Neutrophils % 76.8 %; Platelet Count 165 10^3/uL (130-400); RBC 3.26 10^6/uL (3.93-5.22); RDW 13.3 % (11.7-14.6); RDW-SD 45.8 fL
[2024-07-02 06:39] LABS: Anion Gap 5.3 mmol/L (3-11); BUN 13 mg/dL (7-18); CO2 32.7 mmol/L (21.0-32.0); CREATININE 0.9 mg/dL (0.55-1.02); Calcium 8.4 mg/dL (8.5-10.1); Chloride 101 mmol/L (98-107); Estimated GFR 67.92 (mL/min/1.73m2); Glucose 166 mg/dL (74-106); Magnesium 1.6 mg/dL (1.8-2.4); Potassium 3.2 mmol/L (3.5-5.1); Sodium 139 mmol/L (136-145)
[2024-07-02 07:16] LABS: PTT Activated 48.2 sec (20.6-30.2)
[2024-07-02 07:18] VITALS: BP 94/77; PULSE 106; RESP 19; TEMP 37; O2SAT 92
[2024-07-02] MEDS: Budesonide/Formoterol 80/4.5 6.9 GM 60 PUFF INH IH (08:47)
[2024-07-02] MEDS: Levalbuterol HFA 15 GM INH 2 PUFF IH (08:47)
[2024-07-02] MEDS: HYDROmorphone 2 MG/ML SYR 0.5 MG IVP ×2 (09:10→14:28)
[2024-07-02] MEDS: CIPROFLOXACIN 400 MG/200 ML BAG 200 MG IVPB ×2 (09:18→20:55)
[2024-07-02] MEDS: Aspirin E.C. 81 MG TABEC PO (09:25)
--- NOTE | 2024-07-02 10:33 | W.PM.PROGNOT ---
Date of Service Date of service: 07/02/24 Time of Service: 10:33 Assessment and Plan Assessment and plan (1) Status post small bowel resection: Status: Acute Assessment and plan: Her white blood cell count remains within normal limits, and is actually down a touch compared to yesterday. The surgical drain is fairly bland appearing, and she has had no signs of fevers that would suggest intra-abdominal infection. I have repleted her potassium and magnesium because of hypokalemia and hypomagnesemia today. I will add some alvimopan to see if that helps with postoperative ileus. Subjective Subjective Interval history since last seen: Kae was able to get up to the chair a little bit yesterday, and has been feeling a little bit better this morning. Quality of sleep was poor overnight because of disruptions from the IV pump and some intermittent pain. Overall she feels like her appetite is increased this morning. Exam GI Other: Abdomen is soft, not very distended. Tenderness is about the same on each side. Surgical drain appears less bloody today. Incisions are all clean, and I do not see any signs of infection. She does have some bowel sounds this morning. Objective Last Vital Signs Temp 98.6 F 07/02/24 07:18 Pulse 106 H 07/02/24 07:18 Resp 19 07/02/24 07:18 BP 94/77 L 07/02/24 07:18 Pulse Ox 92 07/02/24 07:18 Laboratory Results - last 24 hr 07/01/24 07/01/24 07/01/24 10:30 14:24 18:22 WBC RBC Hgb Hct MCV MCH MCHC RDW Plt Count MPV Immature Gran % Neutrophils % Lymphocytes % Monocytes % Eosinophils % Basophils % Nucleated RBC % Absolute Neutrophils Absolute Lymphocytes Absolute Monocytes Absolute Eosinophils Absolute Basophils APTT 46.0 H 46.1 H 33.6 H Sodium Potassium Chloride Carbon Dioxide Anion Gap BUN Creatinine Est GFR (CKD-EPI 2020) Glucose Calcium Magnesium 07/01/24 07/02/24 07/02/24 22:10 02:30 05:35 WBC RBC Hgb Hct MCV MCH MCHC RDW Plt Count MPV Immature Gran % Neutrophils % Lymphocytes % Monocytes % Eosinophils % Basophils % Nucleated RBC % Absolute Neutrophils Absolute Lymphocytes Absolute Monocytes Absolute Eosinophils Absolute Basophils APTT 31.1 H 47.9 H Sodium Cancelled Potassium Cancelled Chloride Cancelled Carbon Dioxide Cancelled Anion Gap Cancelled BUN Cancelled Creatinine Cancelled Est GFR (CKD-EPI 2020) Cancelled Glucose Cancelled Calcium Cancelled Magnesium 07/02/24 07/02/24 06:06 Unknown WBC 9.80 Cancelled RBC 3.26 L Cancelled Hgb 10.1 L Cancelled Hct 30.2 L Cancelled MCV 93 Cancelled MCH 31.0 Cancelled MCHC 33.4 Cancelled RDW 13.3 Cancelled Plt Count 165 Cancelled MPV 10.4 Cancelled Immature Gran % 0.6 Neutrophils % 76.8 Lymphocytes % 13.8 Monocytes % 7.7 Eosinophils % 0.5 Basophils % 0.6 Nucleated RBC % 0.0 Absolute Neutrophils 7.53 H Absolute Lymphocytes 1.35 Absolute Monocytes 0.75 Absolute Eosinophils 0.05 Absolute Basophils 0.06 APTT 48.2 H Sodium 139 Potassium 3.2 L Chloride 101 Carbon Dioxide 32.7 H Anion Gap 5.3 BUN 13 Creatinine 0.9 Est GFR (CKD-EPI 2020) 67.92 Glucose 166 H Calcium 8.4 L Magnesium 1.6 L Time Spent with Patient Time Spent with Patient: 35-49 minutes Time was spent: preparing to see the patient(eg.review tests), ordering medications,tests, procedures, indepentently interpreting results, counseling the patient and care coordination
[2024-07-02 10:40] LABS: PTT Activated 49.9 sec (20.6-30.2)
[2024-07-02] MEDS: Insulin Aspart 300 UNITS/3 ML PEN SC ×4 (10:49→21:38)
[2024-07-02 11:53] VITALS: BP 145/90; PULSE 110; RESP 20; TEMP 36.9; O2SAT 92
[2024-07-02] MEDS: MAGNESIUM SULFATE 1 GM/100 ML BAG IV_INF (11:59)
[2024-07-02] MEDS: POTASSIUM CHLORIDE 20 MEQ/100 ML BAG 50 MEQ IV_INF (11:59)
[2024-07-02] MEDS: ACETAMINOPHEN 1,000 MG/100 ML BAG 100 MG IVPB ×2 (12:08→17:27)
[2024-07-02 12:14] VITALS: BP 145/90; PULSE 110
--- NOTE | 2024-07-02 14:04 | PTTR_ITS ---
PT Notes Visit Reasons: SBO PT daily treatment Note Date: 07/02/2024 PRECAUTIONS: Fall. Standard. Activity as tolerated. First attempt: 2:10 pm SUBJECTIVE: Pt in bed , had just been assisted back to bed with nursing staff after sitting for 1.5 hrs. Nursing states they are due to give pain meds, pt. not willing to get up again now , she also has 2 IV poles, starr, [place] and FABRICE drain. Reviewed exercises. Nurse reports improved yaneth to ambulation. Pt. states does not use AD at home, has 2 small dogs and a bird, looking forward to getting home. OBJECTIVE: ? NGT in place, FABRICE drain in place, Iv through B UEs, starr catheter in place? PAIN: 10 on incision site having a difficult time with coughing VITALS: monitored by nursing Therapeutic Activities 36000: Direct one-on-one instruction in dynamic activ ities to improve functional performance. ?? BED MOBILITY/TRANSFERS? Rolling L/R: min A Supine-sit: ? min A? Sit-supine: ? min A? Sit-stand: ? ?[]? Stand-sit: ?[] ? Bed-Chair:? ?[] ? Chair-bed: [] Provided skilled cues and instruction on performance and technique throughout. ? Gait activity: FWRW? Therapeutic Exercises 54490: Direct one-on-one instruction in therapeutic exercises to develop strength, endurance, range of motion and flexibility. Exercises Glute sets [id number] Heel slides [id number] ankle pumps 47i9qps Supine clamshells [id number] Abdominal bracing during coughing to help minimize pain Provided skilled instruction in proper exercise performance Provided skilled manual cues to facilitate proper muscle recruitment and/or form: ASSESSMENT:?Pt refused to do anything else after sitting on the EOB for 5mins. pt reports the pain is unbearable and would like to rest after the bed exercises. therapist offered to return after pt has taken medication but pt re ports that it is enough activity for her today. PLAN: Continue with balance training, global strengthening and general conditioning for improved safety, mobility and activity tolerance until pt is r justin for DC. functional status will be updated accordingly.? Plan may be modified as symptoms dictate. TREATMENT CODE/TIME: 93948m8 20mins (2:20-2:40pm)
[2024-07-02 14:51] LABS: PTT Activated 49.6 sec (20.6-30.2)
[2024-07-02 15:05] VITALS: BP 138/58; PULSE 96; RESP 18; TEMP 36.5; O2SAT 93
--- NOTE | 2024-07-02 16:43 | NT_ITS ---
PT Notes Visit Reasons: SBO PTNon Treatment Note Date: 07/02/2024 PRECAUTIONS: Fall. Standard. Activity as tolerated. First attempt: 2:10 pm SUBJECTIVE: Pt in bed , had just been assisted back to bed with nursing staff after sitting for 1.5 hrs. Nursing states they are due to give pain meds, pt. not willing to get up again now , she also has 2 IV poles, starr, [place] and FABRICE drain. Reviewed exercises. Nurse reports improved yaneth to ambulation. Pt. states does not use AD at home, has 2 small dogs and a bird, looking forward to getting home. second attempt 4:30 with Nurse, Milagros Reis administered 2 hrs ago. Pt our right refused too much pain Refused even doing LE exercises in bed. Recomm endation by nurse to communicate with nursing for when she gets meds to be able to work about 30 min post. Pt does state she will get up with nursing to sit in chair after next meds. OBJECTIVE: ? NGT in place, FABRICE drain in place, Iv through B UEs, starr catheter in place?Discussed with patient importance of mobility to prevent against other issues, aid with strengthening to be able to return home. Advised nursing to try to do some LE exercises with patient. ? PAIN: 10/10 on incision site having a difficult time with coughing VITALS: monitored by nursing Karma Mota,PT
[2024-07-02 18:16] VITALS: BP 162/66; PULSE 102
[2024-07-02 18:36] LABS: PTT Activated 45.9 sec (20.6-30.2)
[2024-07-02] MEDS: Lactated Ringers 1,000 ML 80 ML IV (20:52)
[2024-07-02] MEDS: Normal Saline Flush 10 ML SYR IVP (20:57)
[2024-07-02] MEDS: Ondansetron 4 MG/2 ML VIAL IVP (21:52)
[2024-07-02 22:49] LABS: PTT Activated 38.2 sec (20.6-30.2)
[2024-07-02] MEDS: ACETAMINOPHEN 1,000 MG/100 ML BAG 400 MG IVPB (23:49)
[2024-07-03] VITALS (13 sets, daily range): BP systolic 146–178; BP diastolic 60–80; PULSE 97–120; RESP 18–24; TEMP 36.3–37.8; O2SAT 89–94
--- NOTE | 2024-07-03 | DI.CT_ITS ---
Exam(s) CT ABDOMEN PELVIS WO EXAM: CT ABDOMEN PELVIS WO CLINICAL HISTORY: enterotomy. TECHNIQUE: Imaging Protocol: Axial computed tomography images with coronal and sagittal reformatted images were created and reviewed. Oral: ? COMPARISON: CT CT ABDOMEN PELVIS WO from 05/02/2024 FINDINGS: Lung Bases: No acute findings. Liver: Enlarged. Severe fatty infiltration. No suspicious mass. Gallbladder and biliary tract: Cholecystectomy. No biliary dilatation. Pancreas: Some fatty infiltration.. No abnormal calcifications or inflammatory process. Spleen: Normal. Kidneys: Normal size, contour and axis. No radiodense stones. No obstructive uropathy. No suspicious masses seen. Adrenal glands: No masses seen. Lymph nodes: Within normal limits. Vasculature: Abdominal aorta non-dilated. Atherosclerotic changes. Soft tissues: Midline anterior abdominal wall skin eric. Surgical drain entering from the right l ower quadrant and extending along the anterior abdominal wall to the left lower quadrant. Free air p resent. Marked stranding in the mesentery of the of left lower quadrant. Spinal stimulator device. Some edema in the anterior abdominal wall. Bladder: Decompressed by Lay catheter. Bowel: Nasogastric tube in place in the stomach. A very small amount of high density material is not ed within the stomach. No obstruction . Small bowel anastomosis in the low pelvis. Some wall thic kening of the transverse colon in the region of the surgical drain. Peritoneal cavity: No ascites. No focal collection. Free air noted anteriorly in the mid abdomen Reproductive organs: Hysterectomy. Bones: Lumbar laminectomy and posterior fusion from L4 through S1. IMPRESSION: Surgical drain in place. Mild thickening of the transverse colon in the region of the drain and mild mesenteric edema. Free air in the anterior lower abdomen, presumably postsurgical. No evidence of bowel obstruction. RADIATION DOSE DELIVERED: Total DLP DATA REPOSITORY: All CT scans at this facility are submitted to the National Radiology Data Registry (NRDR) Dose Index Registry (DIR) with the [employer] (A[employer]). RADIATION OPTIMIZATION: All CT scans at this facility use at least one of these dose optimization te chniques: automated exposure control; mA and/or kV adjustment per patient size (includes targeted exa ms where dose is matched to clinical indication); or iterative reconstruction.
[2024-07-03] MEDS: HYDROmorphone 2 MG/ML SYR 1 MG IVP ×2 (00:17→11:04)
[2024-07-03] MEDS: metroNIDAZOLE 500 MG/100 ML BAG 100 MG IVPB ×3 (00:58→17:39)
[2024-07-03] MEDS: Metoprolol 5 MG/5 ML VIAL IVP ×3 (01:00→12:27)
[2024-07-03] MEDS: Levalbuterol HFA 15 GM INH 2 PUFF IH ×2 (01:56→09:14)
[2024-07-03] MEDS: ACETAMINOPHEN 1,000 MG/100 ML BAG 400 MG IVPB ×3 (05:47→16:58)
[2024-07-03] MEDS: Ondansetron 4 MG/2 ML VIAL IVP ×2 (06:11→10:19)
[2024-07-03] MEDS: Normal Saline Flush 10 ML SYR IVP ×4 (06:39→19:15)
[2024-07-03 06:43] LABS: Abs Immature Grans 0.12 10^3/uL (0.0-0.06); Absolute Basophil Count 0.06 10^3/uL (0.0-0.2); Absolute Eosinophil Count 0.01 10^3/uL (0.0-0.7); Absolute Lymphocyte Count 0.82 10^3/uL (1.2-3.4); Absolute Monocyte Count 0.89 10^3/uL (0.1-0.8); Absolute Neutrophil Count 8.27 10^3/uL (1.2-6.7); Basophils % 0.6 %; Eosinophils % 0.1 %; HCT 32.8 % (36.0-46.0); HGB 10.9 g/dL (11.2-15.7); Immature Grans % 1.2 %; Lymphocytes % 8.1 %; MCH 30.9 pg (27.0-33.0); MCHC 33.2 % (32.0-36.0); MCV 93 fL (80-95); MPV 10.2 fL (8.0-11.0); Monocytes % 8.8 %; Neutrophils % 81.2 %; Platelet Count 215 10^3/uL (130-400); RBC 3.53 10^6/uL (3.93-5.22); RDW 13.4 % (11.7-14.6); RDW-SD 46.1 fL; WBC 10.17 10^3/uL (4.4-10.8)
[2024-07-03 06:56] LABS: Anion Gap 7.5 mmol/L (3-11); BUN 11 mg/dL (7-18); CO2 31.5 mmol/L (21.0-32.0); CREATININE 0.8 mg/dL (0.55-1.02); Calcium 8.5 mg/dL (8.5-10.1); Chloride 100 mmol/L (98-107); Estimated GFR 78.24 (mL/min/1.73m2); Glucose 186 mg/dL (74-106); Potassium 3.3 mmol/L (3.5-5.1); Sodium 139 mmol/L (136-145)
[2024-07-03 06:58] LABS: C-Reactive Protein 22.77 mg/dL (<or=0.5)
[2024-07-03 07:33] LABS: Diff Comment Agrees w/ Instrument; RBC Morphology Normal
[2024-07-03] MEDS: Aspirin E.C. 81 MG TABEC PO (07:42)
[2024-07-03] MEDS: Metoprolol CR 50 MG TABCR PO (07:42)
[2024-07-03] MEDS: HYDROmorphone 2 MG/ML SYR 0.5 MG IVP ×3 (07:43→19:15)
[2024-07-03] MEDS: CIPROFLOXACIN 400 MG/200 ML BAG 200 MG IVPB ×2 (08:06→20:22)
[2024-07-03] MEDS: Insulin Aspart 300 UNITS/3 ML PEN SC ×3 (08:07→16:58)
--- NOTE | 2024-07-03 08:41 | PT.INTREAT ---
PT Notes Visit Reasons: SBO PT treatment Note Date: 07/03/2024 PRECAUTIONS: Fall. Standard. Activity as tolerated. SUBJECTIVE: Pt sitting in recliner, just received pain meds and NG disconnected thus was a good time and Dave was in agreement to give PT a little try. Pt refused any further work today, discussed with her and with MD present importance of working leg ROM, mobility, arm strength while she is in hospital. OBJECTIVE: ? NGT in place, FABRICE drain in place, Iv through B UEs, starr catheter in place? PAIN: 03/24 on incision site VITALS: monitored by nursing Therapeutic Activities 55604: Direct one-on-one instruction in dynamic activities to improve functional performance. ?? BED MOBILITY/TRANSFERS? Sit-stand: to 4WRW?needs v/c reaching for walker but able to use chair and stand with SBA? Stand-sit: ?4WRW to recliner? needs v/c for reaching back and did not do even with v/c incidence of feeling nausea? ?able to adjust her postioning. ? Standing marching in place 5 x ea leg, hesitate 1x 3 sec stand on each leg with strong support at RW Provided skilled cues and instruction on performance and technique throughout. ? Therapeutic Exercises 91729o7: Direct one-on-one instruction in therapeutic exercises to develop strength, endurance, range of motion and flexibility. Exercises Glute sets [id number] Heel slides 33b7fop ankle pumps [id number] leg ext x10 Abdominal bracing during coughing to help minimize pain Provided skilled instruction in proper exercise performance Provided skilled manual cues to facilitate proper muscle recruitment and/or form: ASSESSMENT:?Pt refused to do anything else after sit to stand 1x. Pt reports she is feeling a little better. Communicated with MD to review how much we should push to participate in PT. He stated he would like to see her get up and down a few times walk a few steps in the room a few times /day and keep UE strong but that it will be a little bit before she is ready medically for d/c. She is to have CT Scan later today. PLAN: Continue with balance training, global strengthening and general conditioning for improved safety, mobility and activity tolerance until pt is ready for DC. functional status will be updated accordingly.? Plan may be modified as symptoms dictate. TREATMENT CODE/TIME: 68098q8 8mins (8:30-8:38am)
--- NOTE | 2024-07-03 09:13 | PGE_ITS ---
Date of Service Date of service: 07/03/24 Time of Service: 09:13 Assessment and Plan Assessment and plan (1) Status post small bowel resection: Status: Acute Assessment and plan: The change in the character of the surgical drain is certainly disappointing. However aside from her tachycardia, her physiology, and labs otherwise remain reassuring. White blood cell count is still within normal limits, although the CRP is elevated. I think her appetite and her bowel sounds are also generally reassuring. At this point, I think the safest course of action is a CT scan wi th enteral contrast to see if we can identify where, and to what extent the GI tract is leaking. If it is well-controlled with the drain, I am inclined to give this more time to see if it will seal on its own. I think more surgery in her abdomen and pelvis will be quite challenging, and I worry that given her overall trajectory, at the moment, benefit of nonoperative management seem to outweigh the risks of another laparotomy. I will plan to continue the antibiotics for now, and institute intermittent flushing of the drain to help promote evacuation of peritoneal contamination. Healthcare system has run out of argatroban, so for the time being, that is discontinued. She is still on an aspirin, and hopefully that we will offer her some protection. I anticipate results from HIT testing any day now, and given the absence of other thrombotic indicators, I think just managing her with aspirin for a day or 2 is very reasonable. I will also replete her hypokalemia today. Pending the results of the CT scan, then we may need to consider something like a PICC line in the next day or 2 since we are now approaching 5 days without nutrition. Subjective Subjective Interval history since last seen: Kae tells me that she was able to sleep better overnight, and although she did have an episode of retching, she does feel a little better overall. She is up in the chair already. She tells me she is more hungry today compared to yesterday. Exam GI Other: Abdomen is soft, and remains tender, still little more on the right side than the left. The external incisions all look fine. The effluent in the drain looks like succus today. Objective Last Vital Signs Temp 98.9 F 07/03/24 06:28 Pulse 118 H 07/03/24 06:39 Resp 18 07/03/24 06:28 BP 147/66 H 07/03/24 06:39 Pulse Ox 91 L 07/03/24 06:28 Laboratory Results - last 24 hr 07/02/24 07/02/24 07/02/24 10:15 14:05 17:58 WBC RBC Hgb Hct MCV MCH MCHC RDW Plt Count MPV Immature Gran % Neutrophils % Lymphocytes % Monocytes % Eosinophils % Basophils % Nucleated RBC % Absolute Neutrophils Absolute Lymphocytes Absolute Monocytes Absolute Eosinophils Absolute Basophils RBC Morphology APTT 49.9 H 49.6 H 45.9 H Sodium Potassium Chloride Carbon Dioxide Anion Gap BUN Creatinine Est GFR (CKD-EPI 2020) Glucose Calcium C-Reactive Protein 07/02/24 07/03/24 07/03/24 22:17 02:00 06:00 WBC RBC Hgb Hct MCV MCH MCHC RDW Plt Count MPV Immature Gran % Neutrophils % Lymphocytes % Monocytes % Eosinophils % Basophils % Nucleated RBC % Absolute Neutrophils Absolute Lymphocytes Absolute Monocytes Absolute Eosinophils Absolute Basophils RBC Morphology APTT 38.2 H Cancelled Cancelled Sodium Potassium Chloride Carbon Dioxide Anion Gap BUN Creatinine Est GFR (CKD-EPI 2020) Glucose Calcium C-Reactive Protein 07/03/24 07/03/24 06:34 Unknown WBC 10.17 Cancelled RBC 3.53 L Cancelled Hgb 10.9 L Cancelled Hct 32.8 L Cancelled MCV 93 Cancelled MCH 30.9 Cancelled MCHC 33.2 Cancelled RDW 13.4 Cancelled Plt Count 215 Cancelled MPV 10.2 Cancelled Immature Gran % 1.2 Neutrophils % 81.2 Lymphocytes % 8.1 Monocytes % 8.8 Eosinophils % 0.1 Basophils % 0.6 Nucleated RBC % 0.0 Absolute Neutrophils 8.27 H Absolute Lymphocytes 0.82 L Absolute Monocytes 0.89 H Absolute Eosinophils 0.01 Absolute Basophils 0.06 RBC Morphology Normal APTT Sodium 139 Potassium 3.3 L Chloride 100 Carbon Dioxide 31.5 Anion Gap 7.5 BUN 11 Creatinine 0.8 Est GFR (CKD-EPI 2020) 78.24 Glucose 186 H Calcium 8.5 C-Reactive Protein 22.77 H Time Spent with Patient Time Spent with Patient: 35-49 minutes Time was spent: preparing to see the patient(eg.review tests), ordering medications,tests, procedures, referring, communicating with other health adult care provider, indepentently interpreting results, counseling the patient and care coordination
[2024-07-03] MEDS: Budesonide/Formoterol 80/4.5 6.9 GM 60 PUFF INH IH (09:14)
[2024-07-03] MEDS: Gastrografin 120 ML BTL (10:00)
[2024-07-03] MEDS: POTASSIUM CHLORIDE 20 MEQ/100 ML BAG 50 MEQ IV_INF (10:00)
--- NOTE | 2024-07-03 12:37 | DI.VRAD_ITS ---
PROCEDURE INFORMATION: Exam: CT Abdomen And Pelvis Without Contrast Exam date and time: 07/03/2024 12:05 PM Age: 73 years old Clinical indication: Pain; Other: Enterotomy; Prior surgery; Surgery date: Post-operative (0-2 days); Surgery type: Bowel resection TECHNIQUE: Imaging protocol: Computed tomography of the abdomen and pelvis without contrast. Other contrast: Oral, gastrographin; COMPARISON: CT ABDOMEN PELVIS WO 05/02/2024 7:02 PM FINDINGS: Tubes, catheters and devices: Drainage catheter in the anterior mid abdomen. Few extraluminal gas bubbles present. Lungs: Visualized lung bases are clear. Liver: Marked diffuse fatty infiltration of the liver. No mass or ductal dilatation. Gallbladder and biliary ducts: Gallbladder has been removed. Pancreas: Normal. No mass or ductal dilation. Spleen: Normal. No splenomegaly. Adrenal glands: Normal. No mass. Kidneys and ureters: Normal. No hydronephrosis, calculus, cyst or mass. Stomach and bowel: Previous bowel surgery. Anastomotic suture line within small bowel loops in the mid pelvis. There is diffuse bowel wall thickening with surrounding inflammatory stranding. Appendix: No evidence of appendicitis. Intraperitoneal space: See Tubes, catheters and devices finding. Vasculature: Unremarkable. No abdominal aortic aneurysm or significant atherosclerosis. Lymph nodes: No enlarged retroperitoneal or mesenteric lymph nodes. Urinary bladder: Lay catheter in the bladder. Reproductive: Uterus is absent. No adnexal cyst or mass. Bones/joints: Previous lumbar laminectomy and fusion Soft tissues: Unremarkable. IMPRESSION: Recent bowel resection. All findings in the abdomen and pelvis are compatible with recent surgery. Severe hepatic steatosis noted. Dictated and Authenticated by: Sam Marquez MD. Ordering:ITZEL King MD
[2024-07-03] MEDS: Lactated Ringers 1,000 ML 80 ML IV (14:42)
--- NOTE | 2024-07-03 15:30 | PT.INTREAT ---
PT Notes Visit Reasons: SBO PT treatment Note Date: 07/03/2024 second session today PRECAUTIONS: Fall. Standard. Activity as tolerated. SUBJECTIVE: Patient is supine in bed and NG disconnected by RN(Ankur) and Dave was in agreement to give PT a try. OBJECTIVE: ? NGT in place, FABRICE drain in place, Iv through L UEs, starr catheter in place? PAIN: 01/22 on incision site VITALS: monitored by nursing, pain meds immediately after PT Therapeutic Activities 35571: Direct one-on-one instruction in dynamic activities to improve functional performance. ?? Assistance of nursing staff to aid with management of IV, NG tube, patient does not want gait belt on thus place on and high as possible, avoid tightening , just to tolerance BED MOBILITY/TRANSFERS? Supine to sit: mod assist of 2? Sit to supine: max assist of both LE and min assist of upper body Sit-stand: to 4WRW?needs v/c as reaching for walker but otherwise SBA? Stand-sit: ?4WRW to bed ? needs v/c for reaching back otherwise SBA ? Standing marching in place 5 x ea leg, with strong support at RW Ambulation with 4WRW with heavy support with UE , short stride length and bent over inn general steady more limited due to pain. Performs 60' and then returns to bed. Provided skilled cues and instruction on performance and technique throughout. ? ASSESSMENT:?Pt states that she is feeling better and was much more willing to participate in afternoon session with PT. We had significant assistance from nursing staff to manage lines disconnect NG tube and aid with supine to sit and sit to supine. Although her gait at this point is reliant on the RW it is because of abdominal discomfort. Continue to encourage her to participate in glutes sets, ankle pumps while she is lying in bed and knee extension flexion when she is sitting along with continued glutes sets. PLAN: Continue with balance training, global strengthening and general conditioning for improved safety, mobility and activity tolerance until pt is ready for DC. functional status will be updated accordingly.? Plan may be modified as symptoms dictate. TREATMENT CODE/TIME: [id number] 10 mins (15:10-15:20)
[2024-07-03 16:18] LABS: HIT ELISA <0.050 OD (<0.400); HIT Interpretation Negative (Negative)
[2024-07-03] MEDS: Metoprolol 5 MG/5 ML VIAL 2.5 MG IVP (17:39)
[2024-07-04] VITALS (7 sets, daily range): BP systolic 145–182; BP diastolic 59–97; PULSE 93–120; RESP 18–20; TEMP 36–36.6; O2SAT 93–96
--- NOTE | 2024-07-04 | DI.RAD_ITS ---
Exam(s) XR ABDOMEN FLAT PLATE EXAM: XR ABDOMEN FLAT PLATE CLINICAL HISTORY: sbo. TECHNIQUE: 2D digital imaging was performed. COMPARISON: CR,XR XR ABDOMEN FLAT PLATE from 05/02/[address] ABDOMEN PELVIS WO from 07/03/2024 FINDINGS: There is in G-tube in the stomach. Its distal tip is along the lower aspect of the greater curvature . The stomach is not distended. Stimulator wires noted posteriorly with bilateral gluteal stimulator devices. There posterior epidur al stimulator leads coming from the left sub gluteal device. The sub gluteus device on the right nilton e gives off a trans sacral stimulator. Fusion hardware in the lumbar spine is again noted. The bowel gas pattern is nonspecific in the supine position. Cannot assess for free intraperitoneal air as there is no upright or decubitus image. Please note that yesterday's CT scan did reveal free intraperitoneal air. There are nasty Modic sutures in the lower central pelvis. Also surgical clips in right upper quadra nt from prior cholecystectomy. Regional bones appear unremarkable. Mild increased markings are note d in the left lung base posterior basal segment of the left lower lobe. IMPRESSION: Nonspecific bowel gas pattern in the supine position with NG tube in the stomach and the stomach not distended. Please note that yesterday's CT scan revealed free air in the pelvis. Cannot assess for free air on this AP supine view. That would require either upright or decubitus images. DATA REPOSITORY: RADIATION DOSE DELIVERED:
[2024-07-04] MEDS: Metoprolol 5 MG/5 ML VIAL 2.5 MG IVP ×4 (00:42→20:32)
[2024-07-04] MEDS: ACETAMINOPHEN 1,000 MG/100 ML BAG 400 MG IVPB ×4 (00:46→20:37)
[2024-07-04] MEDS: metroNIDAZOLE 500 MG/100 ML BAG 100 MG IVPB ×3 (01:24→22:30)
[2024-07-04] MEDS: HYDROmorphone 2 MG/ML SYR 0.5 MG IVP ×4 (01:25→23:21)
[2024-07-04 06:09] LABS: Abs Immature Grans 0.19 10^3/uL (0.0-0.06); Absolute Basophil Count 0.08 10^3/uL (0.0-0.2); Absolute Eosinophil Count 0.16 10^3/uL (0.0-0.7); Absolute Lymphocyte Count 1.54 10^3/uL (1.2-3.4); Absolute Monocyte Count 0.99 10^3/uL (0.1-0.8); Absolute Neutrophil Count 5.81 10^3/uL (1.2-6.7); Basophils % 0.9 %; Eosinophils % 1.8 %; HCT 29.7 % (36.0-46.0); HGB 9.8 g/dL (11.2-15.7); Immature Grans % 2.2 %; Lymphocytes % 17.6 %; MCH 30.6 pg (27.0-33.0); MCV 93 fL (80-95); MPV 10.4 fL (8.0-11.0); Monocytes % 11.3 %; Neutrophils % 66.2 %; Platelet Count 227 10^3/uL (130-400); RDW 13.8 % (11.7-14.6); RDW-SD 47.9 fL; WBC 8.77 10^3/uL (4.4-10.8)
[2024-07-04 06:20] LABS: Albumin 1.9 g/dL (3.4-5.0)
[2024-07-04 06:21] LABS: Anion Gap 2.9 mmol/L (3-11); BUN 18 mg/dL (7-18); CO2 37.1 mmol/L (21.0-32.0); CREATININE 0.7 mg/dL (0.55-1.02); Calcium 8.1 mg/dL (8.5-10.1); Chloride 103 mmol/L (98-107); Estimated GFR 91.83 (mL/min/1.73m2); Glucose 153 mg/dL (74-106); Sodium 143 mmol/L (136-145)
[2024-07-04 06:24] LABS: C-Reactive Protein 24.35 mg/dL (<or=0.5); Magnesium 1.8 mg/dL (1.8-2.4); PHOSPHORUS 2.6 mg/dL (2.6-4.7)
[2024-07-04 06:27] LABS: Potassium 2.9 mmol/L (3.5-5.1)
[2024-07-04] MEDS: Lactated Ringers 1,000 ML 80 ML IV (06:34)
--- NOTE | 2024-07-04 08:38 | W.PM.PROGNOT ---
Date of Service Date of service: 07/04/24 Time of Service: 08:38 Assessment and Plan Assessment and plan (1) Status post small bowel resection: Status: Acute Assessment and plan: POD#5 Ileus versus postop adhesion related SBO Unfortunately patient does appear to have enteric leakage from her drain site, which is probably due to small bowel injury. She did have the CT on 07/03. There did not show any large fluid collections. So I think this is a small controlled injury with the drain. This should most likely heal on its own. TPN is advisable. Patient also continues to have either an ileus or a recurrent SBO. She has had no nutrition in the past 5 days and most likely will require prolonged TPN. We will continue her on antibiotics-although this appears to be more of a small bowel injury not a colon injury. We will see how she progresses in the next few days and see if we can stop the antibiotics. There may be a role here for octreotide in the future depending on how the drainage progresses. Right now there is a very small amount and so I do not think it is necessary. She has a high risk of developing a fistula. Encourage ambulation and pulmonary toilet I did discuss this all with the patient. She understands. She would like to try ice chips and water. This is okay Lay is out Continue NG tube management Supportive care. cipro/flagyl Her heparin antibody was negative. Think it is safe to resume Lovenox and stop the aspirin. (2) GERD (gastroesophageal reflux disease): Status: Chronic (3) 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: Status: Acute (4) Asthma with COPD (chronic obstructive pulmonary disease): Status: Acute (5) Small bowel obstruction: (6) Diabetes mellitus: (7) Hypertension: (8) CAD (coronary artery disease): (9) Hyperlipidemia: (10) Parkinsons disease: (11) COPD (chronic obstructive pulmonary disease): (12) S/P exploratory laparotomy: (13) Anemia of chronic disease: Status: Acute (14) Protein calorie malnutrition: Status: Acute Subjective Subjective Interval history since last seen: Patient is seen and examined: they are doing well. THey have : no headaches. No CP or SOB. no productive cough. no dysuria. no leg pain or swelling. She has been having a lot of pain and requiring a lot of IV pain medication. She has been having significant drainage out from NG tube. See RN notes. She has not passed any gas today. She has not had a bowel movement. She has also had about 10 to 20 cc of drainage around FABRICE drain site. We did changes from a suction type drain to gravity type drain. Nursing is irrigating it once a shift. Patient is taking 0.5 mg p.o. every 4 hours at home at baseline. So she is going to have very high narcotic usage because of chronic usage. She is resting comfortably in bed watching television. She is not tachycardic. She is not febrile. At this point she does not exhibit any signs of acute peritonitis or sepsis. She complains of a lot of pain and is using high doses of narcotics. She has been getting up and walking. Exam Narrative Exam Narrative: PHYSICAL EXAM GENERAL APPEARANCE: Alert, healthy appearance, oriented, x 3,? in no acute distress HYDRATION: Well hydrated HEAD, EYES, EARS, NECK, THROAT: Head is normocephalic, pupils equal, round, reactive to light and accommodation, ocular movement intact, sclera clear and no jaundice. ?edentulous. No thrush NECK: no lymphadenopathy.? Trachea midline.? Neck supple.? No JVD LUNGS: normal respiration/normal chest excursion. ?Clear to auscultation bilaterally. ?No wheeze. ?HEART: Regular rate and rhythm. no murmurs EXTREMITY: No edema or cyanosis.? no leg pain, redness, swelling.? ABDOMEN: Incision is clean dry and intact. She is having enteric contents that appears to be small bowel type succus and probably jejunal as it is mostly bile. There is quite a bit coming out at least 50 cc of shift and a lot of drainage around the drain. She has had at least 50 cc so far out today in the 3 hours. She is also 350 cc out of the NG tube in the last 3 hours. Her pain is appropriate for her postop status. She has minimal bowel sounds. She is not passing any gas or flatus. Objective Last Vital Signs Temp 36 C L 07/04/24 08:13 Pulse 94 H 07/04/24 08:13 Resp 18 07/04/24 08:13 BP 169/62 H 07/04/24 08:13 Pulse Ox 93 07/04/24 08:13 Laboratory Results - last 24 hr 07/04/24 07/04/24 05:45 Unknown WBC 8.77 Cancelled RBC 3.20 L Cancelled Hgb 9.8 L Cancelled Hct 29.7 L Cancelled MCV 93 Cancelled MCH 30.6 Cancelled MCHC 33.0 Cancelled RDW 13.8 Cancelled Plt Count 227 Cancelled MPV 10.4 Cancelled Immature Gran % 2.2 Neutrophils % 66.2 Lymphocytes % 17.6 Monocytes % 11.3 Eosinophils % 1.8 Basophils % 0.9 Nucleated RBC % 0.0 Absolute Neutrophils 5.81 Absolute Lymphocytes 1.54 Absolute Monocytes 0.99 H Absolute Eosinophils 0.16 Absolute Basophils 0.08 Sodium 143 Potassium 2.9 L* Chloride 103 Carbon Dioxide 37.1 H Anion Gap 2.9 L BUN 18 Creatinine 0.7 Est GFR (CKD-EPI 2020) 91.83 Glucose 153 H Calcium 8.1 L Phosphorus 2.6 Magnesium 1.8 C-Reactive Protein 24.35 H Albumin 1.9 L Time Spent with Patient Time Spent with Patient: 35-49 minutes Time was spent: preparing to see the patient(eg.review tests), obtaining and/or reviewing separately otained hiistory, ordering medications,tests, procedures, referring, communicating with other health medicare compliance auditor, indepentently interpreting results, counseling the patient, care coordination and other
--- NOTE | 2024-07-04 08:42 | RESPIRATORY ---
Pt refused inhalers stating that they make her gag.
[2024-07-04] MEDS: CIPROFLOXACIN 400 MG/200 ML BAG 200 MG IVPB ×2 (08:50→21:29)
[2024-07-04] MEDS: Normal Saline Flush 10 ML SYR IVP (08:51)
--- NOTE | 2024-07-04 08:51 | PDOC.CMPRO ---
Date of service: 07/04/24 Time of Service: 08:51 Care Management Progress Note Progress Note Text Progress Note Text: Kae was lying in bed when CM met with her. She appeared pale and uncomfortable. Kae' progress has been slow and she remains NPO and still has an NG tube. Per her provider, she has a small leak in her peritoneal cavity which is just being monitored at this time with the hope it will resolve on its own. Her pain medication regimen has been change to offer more continuous relief. She had Dilaudid 1.0 mg ordered every 4 hours. It has been changed to 0.5 mg every 2 hours with positive results. Discharge Potential Discharge Needs: Surgical F/U Appt Anticipated Barriers to Discharge: Medical Status (recovery going slowly; still not able to eat or drink 5 days post-op) Patient/Family Education Needs: Review discharge instructions, discuss Ask Me Three Transportation: Private vehicle Plan: Anticipate Kae will be discharged home when medically stable. She may benefit from new home health services for nursing, depending on the course of her illness. She will follow up with her community providers and plan of care and transport with her . CM will follow and continue to assess for discharge needs. Social Determinants of Health Screening Social Determinants of Health last assessed: 07/04/24 Will the Patient Participate in the Screening?: Yes Do you worry about having a steady place to live?: no Problems where you live: no known problems In the past 12 months, have you had to go without electric, gas, oil or water in your home?: no Have you or anyone in your house had to go without enough food to eat?: no Has lack of transportation kept you from medical appointments or from doing things needed for daily living?: no Has anyone in your life made you feel unsafe or unsupported?: no How hard is it for you to pay for the very basics like food, housing, medical care, and heating? Would you say it is:: Not hard at all Do you want help finding or keeping work or a job?: I do not need or want help If for any reason you need help with day-to-day activities such as bathing, preparing meals, shopping, managing finances, etc., do you get the help you need?: I don?t need any help How often do you feel lonely or isolated from those around you?: Never Do you speak a language other than Salvadorean at home?: No Does the patient want assistance with any of the above?: No
--- NOTE | 2024-07-04 09:40 | PT.INTREAT ---
PT Notes Visit Reasons: SBO OBJECTIVE: ? NGT in place, FABRICE drain in place, Iv through L UEs, starr catheter in place? PAIN: 01/22 on incision site VITALS: monitored by nursing, pain meds immediately after PT Therapeutic Activities 59407: Direct one-on-one instruction in dynamic activities to improve functional performance. ?? Assistance of nursing staff to aid with management of IV, NG tube, patient does not want gait belt on thus place on and high as possible, avoid tightening , just to tolerance BED MOBILITY/TRANSFERS? Supine to sit: mod assist of 2? Sit to supine: max assist of both LE and min assist of upper body Sit-stand: to 4WRW?needs v/c as reaching for walker but otherwise SBA? Stand-sit: ?4WRW to bed ? needs v/c for reaching back otherwise SBA ? Standing marching in place 5 x ea leg, with strong support at RW Ambulation with 4WRW with heavy support with UE , short stride length and bent over inn general steady more limited due to pain. Performs 60' and then returns to bed. Provided skilled cues and instruction on performance and technique throughout. ? ASSESSMENT:?Pt states that she is feeling better and was much more willing to participate in afternoon session with PT. We had significant assistance from nursing staff to manage lines disconnect NG tube and aid with supine to sit and sit to supine. Although her gait at this point is reliant on the RW it is because of abdominal discomfort. Continue to encourage her to participate in glutes sets, ankle pumps while she is lying in bed and knee extension flexion when she is sitting along with continued glutes sets. PLAN: Continue with balance training, global strengthening and general conditioning for improved safety, mobility and activity tolerance until pt is ready for DC. functional status will be updated accordingly.? Plan may be modified as symptoms dictate. TREATMENT CODE/TIME: 26800g1 10 mins (15:10-15:20)
[2024-07-04] MEDS: Famotidine 20 MG/2 ML VIAL IVP ×2 (09:51→20:31)
[2024-07-04] MEDS: Insulin Aspart 300 UNITS/3 ML PEN SC (10:00)
[2024-07-04] MEDS: POTASSIUM CHLORIDE 10 MEQ/100 ML BAG 100 MEQ IV_INF ×3 (10:18→14:01)
--- NOTE | 2024-07-04 11:46 | PT.INTREAT ---
PT Notes Visit Reasons: SBO PT treatment Note Date: 07/04/2024 PRECAUTIONS: Fall. Standard. Activity as tolerated.,NG Tube, FABRICE Drain ,IV Access LUE, Telemetry SUBJECTIVE: Patient is supine in bed and NG disconnected by RN(Allie) and Dave was in agreement to go for a walk in hallway with PT. Pt reports she has to use the commode prior to walking. OBJECTIVE: ? NGT in place, FABRICE drain in place, Iv through L UEs, ? PAIN: 6/10 on incision site supine in bed Pt report pain increased to 8/10 with bed mobility VITALS: monitored by nursing via telemetry, as well as orthostatic vitals taken as follows: supine : 182/71 93 sit: 145/63 108 stand: 160/73 120 Therapeutic Activities 97609: Direct one-on-one instruction in dynamic activities to improve functional performance. ?? Assistance of nursing staff to aid with management of IV, NG tube, patient does not want gait belt on thus place on and high as possible, avoid tightening , just to tolerance BED MOBILITY/TRANSFERS? Supine to sit: mod assist of 1 x 2 trials ? Sit to supine: min assist of 1 for LE x 1 trial , CGA of 1 for 2nd trial Sit-stand: at FWW CGA and VCs to push up from surface ? x 4 trials ? Stand-sit: FWW to bed and commode? needs v/c for reaching back otherwise SBA ? Standing marching in place 5 x ea leg, with strong support at RW Ambulation with FWW SBA , short stride length . Performs 15 feet then 30feet and then returns to bed. Provided skilled cues and instruction on performance and technique throughout. ? ASSESSMENT:?Pt eager to participate in amblation with this PT. She able to ambulate with FWW to bathroom perform toileting hygiene then walk an additional 30 feet. Pt then reported nausea She was assisted back toward chair. However pt declined to sit in the chair stating she was lightheaded and need to lie down. Pt sat at edge of bed and get her LEs into the bed without assistance. Nurse (Allie) notified.Pt able to particiapte in orthostatic Vitals being taken ( as stated above). She declined to sit OOB in chair despite having a recliner and ability to elevate BLE. Nurse notified of vitals which were recorded by KATIE. Will attempt agian to ambulate in hallway as recommended by and increase time OOB. PLAN: Continue with balance training, global strengthening and general conditioning for improved safety, mobility and activity tolerance until pt is ready for DC. functional status will be updated accordingly.? Plan may be modified as symptoms dictate. TREATMENT CODE/TIME: [id number] 34 mins ([id number])
--- NOTE | 2024-07-04 14:25 | W.NUTRFU ---
Date of service: 07/04/24 Time of Service: 14:25 Nutrition Note NOTE: received consult request for patient due to unable to take po - small bowel fistula. Pt sleeping x2 visits - did not wake. Pt weight as high as 76kg last feb, now 73.7kg (2.3kg loss x4 months) otherwise stable. total protein lab wnl just this last April, with depressed albumin today at 1.9 (prealbumin wnl 06/24/24), with chart indicating poor po/npo at april's admission. Abdominal surgery on 06/29/24 with resection. Pt will be on TPN while gut is healing and NPO status is necessary - anticipate short duration. Currently ordered for 1 liter of D15/AA5 infused over 12 hour period along with 250mL 20% lipid for additional 50g fat (500kcals) and vitamins/minerals, trace elements. this totals 1210kcals, 50g protein, 200g CHO and 50g fat over 12 hours. Current estimated energy needs: 1600kcals, 60g protein Will monitor pt tolerance of TPN, weight, anticipated return to gradual po intake and make recommendations for adjustments as needed. Time Spent in Nutritional Counseling and Treatment: 15 min
--- NOTE | 2024-07-04 15:15 | DI.RAD_ITS ---
Exam(s) XR PORTABLE CHEST AP POST LINE EXAM: XR PORTABLE CHEST AP POST LINE CLINICAL HISTORY: S/P PICC line insertion TECHNIQUE: 2D digital imaging was performed. COMPARISON: No exams were available for comparison FINDINGS: Exam limited by rotation, overlying monitoring leads and oxygen tubing. A PICC line is been inserted via the right arm. The tip projects at the cavoatrial junction. LUNGS: Clear. No pleural abnormality seen. HEART: Normal size. Pacemaker. AORTA: Normal diameter. BONES: Spinal stimulator device. Hardware in lower cervical spine. Soft tissues: Nasogastric tube projects in the stomach. IMPRESSION: Satisfactory placement of PICC line. DATA REPOSITORY: RADIATION DOSE DELIVERED:
[2024-07-04] MEDS: Enoxaparin 40 MG/0.4 ML SYR SC (15:50)
[2024-07-05] VITALS (13 sets, daily range): BP systolic 138–160; BP diastolic 60–79; PULSE 94–110; RESP 16–18; TEMP 36.2–37.2; O2SAT 94–97
[2024-07-05] MEDS: Insulin Aspart 300 UNITS/3 ML PEN SC ×4 (00:41→18:38)
[2024-07-05] MEDS: Metoprolol 5 MG/5 ML VIAL 2.5 MG IVP ×4 (02:30→20:30)
[2024-07-05] MEDS: ACETAMINOPHEN 1,000 MG/100 ML BAG 400 MG IVPB ×4 (02:31→20:16)
[2024-07-05] MEDS: metroNIDAZOLE 500 MG/100 ML BAG 100 MG IVPB ×3 (04:22→21:29)
[2024-07-05 04:40] LABS: Abs Immature Grans 0.32 10^3/uL (0.0-0.06); Absolute Basophil Count 0.06 10^3/uL (0.0-0.2); Absolute Eosinophil Count 0.28 10^3/uL (0.0-0.7); Absolute Lymphocyte Count 1.25 10^3/uL (1.2-3.4); Basophils % 0.9 %; Eosinophils % 4.1 %; HCT 30.4 % (36.0-46.0); HGB 9.9 g/dL (11.2-15.7); Immature Grans % 4.6 %; Lymphocytes % 18.1 %; MCHC 32.6 % (32.0-36.0); MCV 95 fL (80-95); MPV 10.7 fL (8.0-11.0); Neutrophils % 59.3 %; Nucleated RBC 0.3 % (0.0-0.3); Platelet Count 199 10^3/uL (130-400); RBC 3.19 10^6/uL (3.93-5.22); RDW 13.6 % (11.7-14.6); WBC 6.91 10^3/uL (4.4-10.8)
[2024-07-05 04:53] LABS: INR 1.1 (0.9-1.1); Prothrombin Time 10.7 sec (9.1-11.1)
[2024-07-05 05:21] LABS: ALT 11 U/L (14-59); AST 11 U/L (15-37); Albumin 1.9 g/dL (3.4-5.0); Alkaline Phosphatase 42 U/L (46-116); Anion Gap 5.8 mmol/L (3-11); BUN 18 mg/dL (7-18); Bilirubin, Total 0.28 mg/dL (0.2-1.0); CO2 33.2 mmol/L (21.0-32.0); CREATININE 0.8 mg/dL (0.55-1.02); Calcium 8.2 mg/dL (8.5-10.1); Chloride 100 mmol/L (98-107); Estimated GFR 78.24 (mL/min/1.73m2); Glucose 227 mg/dL (74-106); PHOSPHORUS 2.2 mg/dL (2.6-4.7); Sodium 139 mmol/L (136-145); Total Protein 5.7 g/dL (6.4-8.2)
[2024-07-05 05:24] LABS: Potassium 2.7 mmol/L (3.5-5.1)
[2024-07-05] MEDS: HYDROmorphone 2 MG/ML SYR 0.5 MG IVP ×6 (06:20→22:39)
[2024-07-05] MEDS: POTASSIUM CHLORIDE 10 MEQ/100 ML BAG 100 MEQ IV_INF (06:47)
--- NOTE | 2024-07-05 08:13 | W.PM.PROGNOT ---
Date of Service Date of service: 07/05/24 Time of Service: 08:13 Assessment and Plan Assessment and plan (1) Status post small bowel resection: Status: Acute Assessment and plan: POD#6 TPN has been started (+) BMs x 3 (dark, loose) Continue IV abx: cipro/flagyl Drain in place with succus contents. ? of SBO injury, continue to monitor output (255 mL yesterday) Encourage ambulation and pulmonary toilet Continue NG tube management Continue with pain control. Supportive care. (2) GERD (gastroesophageal reflux disease): Status: Chronic (3) 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: Status: Acute (4) Asthma with COPD (chronic obstructive pulmonary disease): Status: Acute (5) Small bowel obstruction: (6) Diabetes mellitus: (7) Hypertension: (8) CAD (coronary artery disease): (9) Hyperlipidemia: (10) Parkinsons disease: (11) COPD (chronic obstructive pulmonary disease): (12) S/P exploratory laparotomy: (13) Anemia of chronic disease: Status: Acute (14) Protein calorie malnutrition: Status: Acute Subjective Subjective Interval history since last seen: Arrive with Kae transferring from the commode back into bed. She states that her abdominal pain is slightly worse than yesterday. She does not feel like she can walk this morning until she gets pain medication. She expresses continued nausea without vomiting. She has had BMs with minimal difficulty. Exam Narrative Exam Narrative: PHYSICAL EXAM GENERAL APPEARANCE: Alert, healthy appearance, oriented, x 3,? in no acute distress HYDRATION: Well hydrated HEAD, EYES, EARS, NECK, THROAT: Head is normocephalic, pupils equal, round, reactive to light and accommodation, ocular movement intact, sclera clear and no jaundice. ?edentulous. No thrush NECK: no lymphadenopathy.? Trachea midline.? Neck supple.? No JVD LUNGS: normal respiration/normal chest excursion. ?Clear to auscultation bilaterally. ?No wheeze. ?HEART: Regular rate and rhythm. no murmurs EXTREMITY: No edema or cyanosis.? no leg pain, redness, swelling.? ABDOMEN: Incision is clean dry and intact. She is having enteric contents that appears to be small bowel type succus and probably jejunal as it is mostly bile. There is quite a bit coming out at least 50 cc of shift and a lot of drainage around the drain. She has had at least 50 cc so far out today in the 3 hours. She is also 350 cc out of the NG tube in the last 3 hours. Her pain is appropriate for her postop status. She has minimal bowel sounds. She is not passing any gas or flatus. Const General: cooperative, healthy appearing and acute distress mild Orientation: alert and oriented x3 Resp Effort & Inspection: normal respiratory effort, no audible wheezes and no cough GI Inspection: normal to inspection Palpation: soft, no guarding and tender Other: Drain with succus appearing contents NG tube in place Objective Last Vital Signs Temp 37.1 C 07/05/24 07:26 Pulse 94 H 07/05/24 07:26 Resp 16 07/05/24 07:26 BP 154/67 H 07/05/24 07:26 Pulse Ox 94 07/05/24 07:26 Laboratory Results - last 24 hr 06/30/24 07/05/24 07/05/24 06:42 04:20 05:35 WBC 6.91 RBC 3.19 L Hgb 9.9 L Hct 30.4 L MCV 95 MCH 31.0 MCHC 32.6 RDW 13.6 Plt Count 199 MPV 10.7 Immature Gran % 4.6 Neutrophils % 59.3 Lymphocytes % 18.1 Monocytes % 13.0 Eosinophils % 4.1 Basophils % 0.9 Nucleated RBC % 0.3 Absolute Neutrophils 4.10 Absolute Lymphocytes 1.25 Absolute Monocytes 0.90 H Absolute Eosinophils 0.28 Absolute Basophils 0.06 PT 10.7 INR 1.1 Sodium 139 Cancelled Potassium 2.7 L* Cancelled Chloride 100 Cancelled Carbon Dioxide 33.2 H Cancelled Anion Gap 5.8 Cancelled BUN 18 Cancelled Creatinine 0.8 Cancelled Est GFR (CKD-EPI 2020) 78.24 Cancelled Glucose 227 H Cancelled Calcium 8.2 L Cancelled Phosphorus 2.2 L Magnesium 2.0 Total Bilirubin 0.28 AST 11 L ALT 11 L Alkaline Phosphatase 42 L Total Protein 5.7 L Albumin 1.9 L Hep-Induced Plt Ab Neha <0.050 Heparin-PF4 Ab Inhibit Not Applicable Heparin-PF4 Ab Interp Negative Heparin-PF4 Ab Comment See Comment Time Spent with Patient Time Spent with Patient: <25 minutes Time was spent: preparing to see the patient(eg.review tests), obtaining and/or reviewing separately otained hiistory and counseling the patient
--- NOTE | 2024-07-05 09:28 | PDOC.CMPRO ---
Date of service: 07/05/24 Time of Service: 09:28 Care Management Progress Note Progress Note Text Progress Note Text: Bubba was lying in bed when CM met with her. When asked how she was feeling today, she answered better and smiled a little. Bubba is 6 days post-op from bowel surgery and still has an NG tube and is NPO. She continues to have pain but it is improving, as is her nausea. Bubba informed CM that her NG tube is clamped and if she does well, she may be able to start a clear liquid diet. While she did not state that she is hungry, she definitely is looking forward to having the NG tube removed. Bubba walked in the halls today, at her request. She is able to tolerate ambulating for 15-30 feet with a FWW. Bubba's WBC remains within normal limits and she is afebrile. She did have more blood work this morning and her potassium was found to be 2.7 which is being repleted.Bubba had a PICC line placed yesterday to facilitate the continued administration of IV antibiotics. Discharge Potential Discharge Needs: PCP F/U Appt Anticipated Barriers to Discharge: Medical Status (slow recovery) Patient/Family Education Needs: Review discharge instructions, discuss Ask Me Three Transportation: Private vehicle Plan: Anticipate Kae will be discharged home when medically stable. She may benefit from new home health services for nursing, depending on the course of her illness. She will follow up with her community providers and plan of care and transport with her . CM will follow and continue to assess for discharge needs. Social Determinants of Health Screening Social Determinants of Health last assessed: 07/05/24 Will the Patient Participate in the Screening?: Yes Do you worry about having a steady place to live?: no Problems where you live: no known problems In the past 12 months, have you had to go without electric, gas, oil or water in your home?: no Have you or anyone in your house had to go without enough food to eat?: no Has lack of transportation kept you from medical appointments or from doing things needed for daily living?: no Has anyone in your life made you feel unsafe or unsupported?: no How hard is it for you to pay for the very basics like food, housing, medical care, and heating? Would you say it is:: Not hard at all Do you want help finding or keeping work or a job?: I do not need or want help If for any reason you need help with day-to-day activities such as bathing, preparing meals, shopping, managing finances, etc., do you get the help you need?: I don?t need any help How often do you feel lonely or isolated from those around you?: Never Do you speak a language other than Martiniquais at home?: No Does the patient want assistance with any of the above?: No
[2024-07-05] MEDS: Normal Saline Flush 10 ML SYR IVP ×7 (09:45→22:40)
[2024-07-05] MEDS: Ondansetron 4 MG/2 ML VIAL IVP (09:45)
[2024-07-05] MEDS: Famotidine 20 MG/2 ML VIAL IVP ×2 (09:56→20:14)
[2024-07-05] MEDS: POTASSIUM CHLORIDE 20 MEQ/100 ML BAG 50 MEQ IV_INF (10:06)
[2024-07-05] MEDS: CIPROFLOXACIN 400 MG/200 ML BAG 200 MG IVPB ×2 (12:08→22:45)
[2024-07-05] MEDS: Levalbuterol HFA 15 GM INH 2 PUFF IH (14:25)
--- NOTE | 2024-07-05 16:59 | PT.INTREAT ---
PT Notes Visit Reasons: SBO PT treatment Note Date: 07/05/2024 PRECAUTIONS: Fall. Standard. Activity as tolerated.,NG Tube, FABRICE Drain ,IV Access LUE, Telemetry , TPN infusing SUBJECTIVE: Patient is supine in bed and NG disconnected by RN(Ronald) and Dave was in agreement to go for a walk in hallway with PT. OBJECTIVE: ? NGT in place, FABRICE drain in place, Iv through L UEs during session. ? PAIN: initially 4/10 on incision site supine in bed Pt report pain increased to 7/10 with activity VITALS: monitored by nursing via telemetry, as well as orthostatic vitals taken as follows: Therapeutic Activities 29982: Direct one-on-one instruction in dynamic activities to improve functional performance. ?? Assistance of nursing staff to aid with management of IV, NG tube, patient does not want gait belt on thus place on and high as possible, avoid tightening , just to tolerance BED MOBILITY/TRANSFERS? Supine to sit: mod assist of 1 x 1 trials ? Sit to supine: min assist of 1 for LE x 1 trial , Sit-stand: at FWW CGA and VCs to push up from surface ? x 2 trials ? Stand-sit: FWW to bed and commode? needs v/c for reaching back otherwise SBA ? Ambulation with FWW SBA , short stride length . Performs 15 feet then 60 feet and then returns to bed. Provided skilled cues and instruction on performance and technique throughout. ? ASSESSMENT:?Pt eager to participate in amblation with this PT. Pt denied nausea this session. She noted fatigue was her limiting factor. although when asked by Nurse to stay up in chair after ambulating, she stated she could not because her stomach hurt so bad. Pt demonstrates some self limiting behaviors and limits what she is willing to participate in at this time. Pt declined to participate in second session on this date stating she was in too much pain. PLAN: Continue with balance training, global strengthening and general conditioning for improved safety, mobility and activity tolerance until pt is ready for DC. functional status will be updated accordingly.? Plan may be modified as symptoms dictate. TREATMENT CODE/TIME: [id number] 29 mins ([id number])
--- NOTE | 2024-07-05 17:57 | W.PM.PROGNOT ---
Date of Service Date of service: 07/05/24 Time of Service: 17:57 Assessment and Plan Assessment and plan (1) Status post small bowel resection: Status: Acute Assessment and plan: I will try a 4-hour trial of clamping the nasogastric tube today to see how she tolerates it. With the bowel sounds, and the stooling, I am optimistic that she will be able to tolerate this hopefully within the next few days. Obviously, we will need to see how the drain evolves once the nasogastric tube is out. Will continue the TPN for now, with electrolyte repletion's as needed. I did replete her potassium today for her hypokalemia. I explained again that given the complexity of her abdomen, I think trying to manage this without surgery is really in her best interest. So long as we can keep the drainage controlled, that I think the overall goal would be to try to slowly back out the surgical drain probably over the course of a few weeks to see if any fistula will close down on its own. Subjective Subjective Interval history since last seen: Kae feels like she is doing a little bit better today. She was up and ambulating in the hallway with the assistance of physical therapy and a walker. Overall, her nausea seems to be improving, and she does continue to have bowel movements and flatus, although they are mostly liquid at this point. Exam GI Other: Abdomen is soft, not distended. Her bowel sounds are a little quiet, but seem to be improved compared to yesterday. The effluent in the surgical drain still seems consistent with succus or at least a bile tinge to it. Incisions look to be healing okay. There are no signs of infection on the soft tissue level. Objective Last Vital Signs Temp 98.7 F 07/05/24 16:39 Pulse 96 H 07/05/24 16:39 Resp 16 07/05/24 15:14 BP 157/66 H 07/05/24 16:39 Pulse Ox 94 07/05/24 15:14 Laboratory Results - last 24 hr 07/05/24 07/05/24 04:20 05:35 WBC 6.91 RBC 3.19 L Hgb 9.9 L Hct 30.4 L MCV 95 MCH 31.0 MCHC 32.6 RDW 13.6 Plt Count 199 MPV 10.7 Immature Gran % 4.6 Neutrophils % 59.3 Lymphocytes % 18.1 Monocytes % 13.0 Eosinophils % 4.1 Basophils % 0.9 Nucleated RBC % 0.3 Absolute Neutrophils 4.10 Absolute Lymphocytes 1.25 Absolute Monocytes 0.90 H Absolute Eosinophils 0.28 Absolute Basophils 0.06 PT 10.7 INR 1.1 Sodium 139 Cancelled Potassium 2.7 L* Cancelled Chloride 100 Cancelled Carbon Dioxide 33.2 H Cancelled Anion Gap 5.8 Cancelled BUN 18 Cancelled Creatinine 0.8 Cancelled Est GFR (CKD-EPI 2020) 78.24 Cancelled Glucose 227 H Cancelled Calcium 8.2 L Cancelled Phosphorus 2.2 L Magnesium 2.0 Total Bilirubin 0.28 AST 11 L ALT 11 L Alkaline Phosphatase 42 L Total Protein 5.7 L Albumin 1.9 L Time Spent with Patient Time Spent with Patient: 35-49 minutes Time was spent: preparing to see the patient(eg.review tests), ordering medications,tests, procedures, referring, communicating with other health healthcare manager, indepentently interpreting results and counseling the patient
[2024-07-06] VITALS (12 sets, daily range): BP systolic 150–181; BP diastolic 67–76; PULSE 95–107; RESP 15–20; TEMP 35.5–37.6; O2SAT 95–98
[2024-07-06] MEDS: Insulin Aspart 300 UNITS/3 ML PEN SC ×4 (00:51→17:47)
--- NOTE | 2024-07-06 01:21 | NUR.NOTE ---
Addendum entered by Heidi Becerra RN 07/06/24 06:00: Correction: 1020ML-85 MLS/HR(12HR)SITE Amino Acids 5% D5W 1000 ML BAG with ELECTROLYTE SOLUTION INJ 20 ML. Should be D15W Original Note: Nursing Note: 21:00 Notice TPN bag currently infusing through patient's PICC is indicate relabel on the medication label and does not match to the documented TPN on the MAR. Bag currently infusing labeled indicates 1020ML-85 MLS/HR(12HR)SITE Amino Acids 5% D5W 1000 ML BAG with ELECTROLYTE SOLUTION INJ 20 ML compared to MAR Amino Acids 5%/D15W 1,000 ML @ 85.917 mls/hr IV with Electrolyte Solution, Inj 20 ml with Multivitamin 10 ml, with Trace Elements-Adult 1 ml bag volume:1,031 mls. Also in the Mar showing mutilple orders of TPN with different time starts. Will infused the current TPN and will give the alternate TPN bag to follow the dosing schedule.
[2024-07-06] MEDS: ACETAMINOPHEN 1,000 MG/100 ML BAG 400 MG IVPB ×4 (02:10→19:52)
[2024-07-06] MEDS: HYDROmorphone 2 MG/ML SYR 0.5 MG IVP ×5 (02:10→22:19)
[2024-07-06] MEDS: Normal Saline Flush 10 ML SYR IVP ×3 (02:10→19:53)
[2024-07-06] MEDS: Ondansetron 4 MG/2 ML VIAL IVP (02:18)
[2024-07-06] MEDS: Metoprolol 5 MG/5 ML VIAL 2.5 MG IVP ×4 (02:42→20:01)
[2024-07-06] MEDS: metroNIDAZOLE 500 MG/100 ML BAG 100 MG IVPB ×3 (04:57→20:01)
[2024-07-06] MEDS: Enoxaparin 40 MG/0.4 ML SYR SC (08:10)
[2024-07-06] MEDS: CIPROFLOXACIN 400 MG/200 ML BAG 200 MG IVPB ×2 (08:11→22:12)
[2024-07-06] MEDS: Famotidine 20 MG/2 ML VIAL IVP ×2 (08:11→19:52)
--- NOTE | 2024-07-06 08:55 | CMPROGNOTE_ITS ---
Date of service: 07/06/24 Time of Service: 08:55 Care Management Progress Note Progress Note Text Progress Note Text: Bubba was sitting up in bed when CM met with her. She appeared brighter than she has and reported that she is feeling better today. She had just been medicated for pain and it hadn't totally taken effect but Bubba noted that it was working. Bubba still has an NG tube but it is clamped. She stated she was given ice chips and then they were taken away so remains NPO. 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 Her NG tube will be alternately clamped and unclamped to determine how she well she can tolerate it from a pain perspective as well as its effect on the amount of drainage. Bubba's came to visit while CM was meeting with Bubba and reported that she has a new Medicare number. Apparently her original card number was being used by someone in another state. CM obtained the information and scanned it to Access. Discharge Potential Discharge Needs: Surgical F/U Appt Anticipated Barriers to Discharge: Medical Status Patient/Family Education Needs: Review discharge instructions, discuss Ask Me Three Transportation: Private vehicle Plan: Anticipate Kae will be discharged home when medically stable. She may benefit from new home health services for nursing, depending on the course of her illness. She will follow up with her community providers and plan of care and transport with her . CM will follow and continue to assess for discharge needs. Social Determinants of Health Screening Social Determinants of Health last assessed: 07/06/24 Will the Patient Participate in the Screening?: Yes Do you worry about having a steady place to live?: no Problems where you live: no known problems In the past 12 months, have you had to go without electric, gas, oil or water in your home?: no Have you or anyone in your house had to go without enough food to eat?: no Has lack of transportation kept you from medical appointments or from doing things needed for daily living?: no Has anyone in your life made you feel unsafe or unsupported?: no How hard is it for you to pay for the very basics like food, housing, medical care, and heating? Would you say it is:: Not hard at all Do you want help finding or keeping work or a job?: I do not need or want help If for any reason you need help with day-to-day activities such as bathing, preparing meals, shopping, managing finances, etc., do you get the help you need?: I don?t need any help How often do you feel lonely or isolated from those around you?: Never Do you speak a language other than Kisw[place] at home?: No Does the patient want assistance with any of the above?: No
[2024-07-06 10:08] LABS: Abs Immature Grans 0.36 10^3/uL (0.0-0.06); HCT 33.2 % (36.0-46.0); HGB 10.7 g/dL (11.2-15.7); MCH 30.5 pg (27.0-33.0); MCHC 32.2 % (32.0-36.0); MCV 95 fL (80-95); MPV 10.3 fL (8.0-11.0); RBC 3.51 10^6/uL (3.93-5.22); RDW 13.7 % (11.7-14.6); RDW-SD 47.1 fL; WBC 9.54 10^3/uL (4.4-10.8)
--- NOTE | 2024-07-06 10:10 | W.PM.PROGNOT ---
Date of Service Date of service: 07/06/24 Time of Service: 10:10 Assessment and Plan Assessment and plan (1) Status post small bowel resection: Status: Acute Assessment and plan: Postop day #7 small bowel resection for chronic obstruction, now with fistula. Has return of bowel function suggesting the fistula output is well-controlled without peritonitis. As the fistula output is increasing, I do want to be sure that clamping the NG tube is not exacerbating this before removing the NG tube and the patient agrees. Therefore we will continue every 4 hour clamping, checking residuals, watching the effect on the fistula output. It could be that continuing continual NG decompression may minimize fistula output in which case if the patient can tolerate the NG tube , leaving it could be advantageous. (2) Hyperglycemia: Status: Acute Assessment and plan: Related to TPN, may require increasing sliding scale insulin (3) Hypokalemia: Status: Acute Assessment and plan: Awaiting lab this morning (4) Fistula: Status: Acute Assessment and plan: Continue TPN and minimal p.o. hoping that there will be some short-term recovery Subjective Subjective Interval history since last seen: Postop day #7 status post exploratory laparotomy with lysis of adhesions for chronic small bowel obstruction. 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 Patient is seen today along with her in the room. Patient had a single trial of clamping the NG tube for 4 hours last night which she tolerated well with low output. She experienced severe heartburn during that time. She is resistant to removing the NG tube but agrees to further trial of clamping. It appears that simultaneous to this there has been increased output of the fistula. Exam Narrative Exam Narrative: Sitting in a recliner chair, conversant and alert, NG tube in place Const General: cooperative [facility] Head: normal to inspection Resp Auscultation: clear to auscultation bilaterally Cardio Rate: regular rate and tachycardic Rhythm: regular rhythm GI Inspection: normal to inspection (Midline wound healing well, large dressing intact over right lower quadrant) Auscultation: normal bowel sounds Skin Other: Warm and dry Extrem Other: No lower extremity swelling Psych Mood: congruent mood Objective Last Vital Signs Temp 35.5 C L 07/06/24 08:07 Pulse 106 H 07/06/24 08:40 Resp 20 07/06/24 08:07 BP 155/67 H 07/06/24 08:07 Pulse Ox 98 07/06/24 09:49 Time Spent with Patient Time Spent with Patient: 25-34 minutes Time was spent: preparing to see the patient(eg.review tests) and obtaining and/or reviewing separately [facility]
[2024-07-06 10:19] LABS: C-Reactive Protein 8.83 mg/dL (<or=0.5)
[2024-07-06 10:20] LABS: Anion Gap 6.1 mmol/L (3-11); BUN 13 mg/dL (7-18); CO2 29.9 mmol/L (21.0-32.0); CREATININE 0.7 mg/dL (0.55-1.02); Calcium 8.4 mg/dL (8.5-10.1); Chloride 102 mmol/L (98-107); Estimated GFR 91.83 (mL/min/1.73m2); Glucose 321 mg/dL (74-106); Potassium 3.2 mmol/L (3.5-5.1); Sodium 138 mmol/L (136-145)
[2024-07-06 10:21] LABS: Magnesium 1.9 mg/dL (1.8-2.4); PHOSPHORUS < 2.0 mg/dL (2.6-4.7)
[2024-07-06 10:30] LABS: Platelet Count 320 10^3/uL (130-400)
[2024-07-06 10:31] LABS: Absolute Basophil Count 0.19 10^3/uL (0.0-0.2); Absolute Eosinophil Count 0.29 10^3/uL (0.0-0.7); Absolute Lymphocyte Count 0.95 10^3/uL (1.2-3.4); Absolute Monocyte Count 0.38 10^3/uL (0.1-0.8); Absolute Neutrophil Count 7.54 10^3/uL (1.2-6.7); Bands % 2 %; Diff Comment Manual Differential; Metamyelocytes % 2
[2024-07-06 10:32] LABS: Polychromasia Present
--- NOTE | 2024-07-06 12:57 | NS.NUTBLAN_ITS ---
Date of service: 07/06/24 Time of Service: 12:58 Nutritional Consult ASSESSMENT: Kae continues to receive TPN to help meet her nutrition needs and prevent further malnutrition during this prolonged state of low/no intake - states she hasn't eaten in 10 days. She is looking forward to advancing her diet, but I reminded her that we need to work towards eating when her body is ready and provider assesses medical appropriateness of advancing and weaning off TPN. Of concern after TPN was initiated is her hyperglycemia with 321 fasting glucose this morning and 274 at noon. No doubt her increase in glucose readings is associated with dextrose infusion in TPN - pt reveiving 150g dextrose every 12- hour feeding cycle. Pt states she does have diabetes and relates an A1C of 7.7 about 2 months ago. She takes 1,000mg metformin BID at home and weekly semaglutide. Currently she is ordered for glucose fingersticks [id number] and a resistant sliding scale of Novolog with no basal insulin. NUTRITIONAL DIAGNOSIS: Inadequate intake related to extended period of NPO at home and during admission for her treatment for SBO with resection. INTERVENTION: recommend increase frequency of glucose fingersticks while TPN is administered and consider adding 1 unit of regular insulin per 10g dextrose (she receives 150g per day) to her TPN solution to help mitigate hyperglycemia and titrate by .5unit per 10g dextrose until closer to close targets. If this cannot be done then would suggest addition of basal insulin at 10units AM and titrate accordingly along with more frequent glucose checks. Recommend immediate repletion of phosphorus as lab today was <2.0 MONITORING AND EVALUATION: will continue to monitor labs/glucose, diet advancement/po intake, weight. Time Spent in Nutritional Counseling and Treatment: 15 minutes
[2024-07-06] MEDS: Levalbuterol HFA 15 GM INH 2 PUFF IH (17:37)
[2024-07-07] VITALS (14 sets, daily range): BP systolic 98–173; BP diastolic 51–75; PULSE 75–118; RESP 15–22; TEMP 34.9–38.2; O2SAT 94–99
[2024-07-07] MEDS: Insulin Aspart 300 UNITS/3 ML PEN SC ×4 (00:06→18:50)
[2024-07-07] MEDS: HYDROmorphone 2 MG/ML SYR 0.5 MG IVP ×7 (00:22→21:29)
[2024-07-07] MEDS: Normal Saline Flush 10 ML SYR IVP ×4 (00:23→21:29)
[2024-07-07] MEDS: ACETAMINOPHEN 1,000 MG/100 ML BAG 400 MG IVPB ×4 (02:04→20:34)
[2024-07-07] MEDS: Metoprolol 5 MG/5 ML VIAL 2.5 MG IVP ×4 (02:31→20:33)
[2024-07-07] MEDS: metroNIDAZOLE 500 MG/100 ML BAG 100 MG IVPB (03:19)
--- NOTE | 2024-07-07 04:59 | NUR.NOTE ---
Nursing Note: 19:18 TPN infusing without filter tubing. TPN administered time on the AUG 13:26. Will connect filter through the tubing.
[2024-07-07] MEDS: Levalbuterol HFA 15 GM INH 2 PUFF IH ×3 (07:01→20:34)
[2024-07-07 07:28] LABS: HCT 30.2 % (36.0-46.0); HGB 9.6 g/dL (11.2-15.7); MCHC 31.8 % (32.0-36.0); MCV 94 fL (80-95); MPV 10.3 fL (8.0-11.0); Platelet Count 353 10^3/uL (130-400); RDW 13.7 % (11.7-14.6); RDW-SD 47.4 fL; WBC 11.31 10^3/uL (4.4-10.8)
[2024-07-07 07:45] LABS: Anion Gap 6.7 mmol/L (3-11); BUN 12 mg/dL (7-18); CO2 29.3 mmol/L (21.0-32.0); CREATININE 0.7 mg/dL (0.55-1.02); Calcium 8.3 mg/dL (8.5-10.1); Chloride 105 mmol/L (98-107); Estimated GFR 91.83 (mL/min/1.73m2); Glucose 278 mg/dL (74-106); Magnesium 1.9 mg/dL (1.8-2.4); Potassium 3.3 mmol/L (3.5-5.1); Sodium 141 mmol/L (136-145)
--- NOTE | 2024-07-07 07:57 | W.PM.PROGNOT ---
Date of Service Date of service: 07/07/24 Time of Service: 07:57 Assessment and Plan Assessment and plan (1) Status post small bowel resection: Status: Acute Assessment and plan: POD #8 Continue TPN Yesterday continued NG tube clamping trials, total drain output was 280mL. Patient is very eager to have this removed. Complaints of GERD symptoms. Famotidine is ordered Encourage ambulation, sitting in the chair and pulmonary toilet Continue wiht Pain control Incisions are healing well. No signs or symptoms of infection Continue supportive care. (+) BMs (2) Hyperglycemia: Status: Acute Assessment and plan: Related to TPN, may require increasing sliding scale insulin (3) Hypokalemia: Status: Acute Assessment and plan: Awaiting lab this morning (4) Fistula: Status: Acute Assessment and plan: Continue TPN and minimal p.o. hoping that there will be some short-term recovery Subjective Subjective Interval history since last seen: Kae is a little upset this morning. She wishes to have the NG tube removed. She does not want to continue with clamping trials. She states that if it's not removed today, I will remove it myself. She states she recently received pain medication and is feeling okay at the moment. She continues to have heart burn when the NG tube is clamped. Exam Const General: cooperative, healthy appearing and comfortable Orientation: alert and oriented x3 Resp Effort & Inspection: normal respiratory effort, no audible wheezes and no cough Other: RT in the room, administering inhalers GI Inspection: normal to inspection Palpation: soft, no guarding and tender Other: Drain with minimal Succus within it Midline incision is intake. No erythema, swelling or induration noted. Objective Last Vital Signs Temp 36.2 C L 07/07/24 06:14 Pulse 100 H 07/07/24 06:14 Resp 15 07/07/24 06:14 BP 156/75 H 07/07/24 06:14 Pulse Ox 94 07/07/24 06:14 Laboratory Results - last 24 hr 07/06/24 07/07/24 09:45 07:10 WBC 9.54 11.31 H RBC 3.51 L 3.20 L Hgb 10.7 L 9.6 L Hct 33.2 L 30.2 L MCV 95 94 MCH 30.5 30.0 MCHC 32.2 31.8 L RDW 13.7 13.7 Plt Count 320 D 353 MPV 10.3 10.3 Immature Gran % See Differential Neutrophils % 77.0 Band Neutrophils % 2 Lymphocytes % 10.0 Monocytes % 4.0 Eosinophils % 3.0 Basophils % 2.0 Metamyelocytes % 2 Nucleated RBC % 1.0 H Absolute Neutrophils 7.54 H Absolute Lymphocytes 0.95 L Absolute Monocytes 0.38 Absolute Eosinophils 0.29 Absolute Basophils 0.19 RBC Morphology See Below Polychromasia Present Sodium 138 141 Potassium 3.2 L 3.3 L Chloride 102 105 Carbon Dioxide 29.9 29.3 Anion Gap 6.1 6.7 BUN 13 12 Creatinine 0.7 0.7 Est GFR (CKD-EPI 2020) 91.83 91.83 Glucose 321 H 278 H Calcium 8.4 L 8.3 L Phosphorus < 2.0 L 2.0 L Magnesium 1.9 1.9 C-Reactive Protein 8.83 H Time Spent with Patient Time Spent with Patient: <25 minutes Time was spent: preparing to see the patient(eg.review tests), obtaining and/or reviewing separately otained hiistory and counseling the patient
[2024-07-07] MEDS: Budesonide/Formoterol 80/4.5 6.9 GM 60 PUFF INH IH ×2 (08:09→20:34)
[2024-07-07] MEDS: Normal Saline 10 ML VIAL IJ (08:52)
[2024-07-07] MEDS: Famotidine 20 MG/2 ML VIAL IVP ×2 (08:52→20:33)
[2024-07-07] MEDS: Enoxaparin 40 MG/0.4 ML SYR SC (08:53)
[2024-07-07] MEDS: CIPROFLOXACIN 400 MG/200 ML BAG 200 MG IVPB (11:05)
--- NOTE | 2024-07-07 12:32 | PT.INTREAT ---
PT Notes Visit Reasons: SBO PT treatment Note Date: 07/07/2024 PRECAUTIONS: Fall. Standard. Activity as tolerated.,NG Tube, FABRICE Drain ,IV Access LUE, Telemetry , TPN infusing SUBJECTIVE: Patient is supine in bed and NG tube clamped and Dave was in agreement to participate with PT. OBJECTIVE: ? NGT in place, FABRICE drain in place, TPN and IV through R UE during session. ? PAIN:Pt reports pain 2/10 after receiving pain meds VITALS: monitored by nursing via telemetry, Therapeutic Activities 47566: Direct one-on-one instruction in dynamic activities to improve functional performance. ?? Assistance of nursing staff to aid with management of IV, NG tube, patient does not want gait belt on thus place on and high as possible, avoid tightening , just to tolerance BED MOBILITY/TRANSFERS? Supine to sit: mod assist of 1 x 1 trials ? Sit-stand: x 4 trials without AD surface to surface transfers without AD SBA ?x 3 trials ? Ambulation with FWW SBA , short stride length . Pt perform 25 feet x 3 without AD within room to simulate mobility within home Provided skilled cues and instruction on performance and technique throughout. ? ASSESSMENT:?Pt feeling much better after NG tube taken out during mid session. She demonstrates ability to perfrom toilet hygiene independently. She continues to report abdominal discomfort with supine to from sit. She demonstrates improved activity tolerance in sitting performing self care. Standing tolerance remains limited. She is hopeful she will be able to go home soon. Pt encouraged to utilize FWW for ambulation to improve standing tolerance. PLAN: Continue with balance training, global strengthening and general conditioning for improved safety, mobility and activity tolerance until pt is ready for DC. functional status will be updated accordingly.? Plan may be modified as symptoms dictate. TREATMENT CODE/TIME: 48096u9 26 mins ([id number])
--- NOTE | 2024-07-07 16:37 | CHAPLAIN ---
This morning I visited with Kae and her Joon. Kae had surgery recently and said she expects to be here a few more days. She had an NG tube but requested yesterday that it be removed. I explained my role and offered support. I will continue to visit.
--- NOTE | 2024-07-07 17:20 | PDOC.CMPRO ---
Date of service: 07/07/24 Time of Service: 17:20 Care Management Progress Note Progress Note Text Progress Note Text: Kae was sitting up in bed when CM met with her. She stated that the NG tube was removed today, which she is very happy about. She stated that when she spoke to the MD today, she told them that if it was not removed, she would remove it herself. She stated that the NG tube didn't cause pain, but it was uncomfortable, and she has had it in for about a week. She is looking forward to returning home, but feels it may take several more days. CM validated her concerns, and discussed taking one day at a time, as she will be reassessed daily, and closely monitored. CM will continue to follow. Discharge Potential Discharge Needs: Surgical F/U Appt Anticipated Barriers to Discharge: None Identified Patient/Family Education Needs: Review discharge instructions, discuss Ask Me Three Transportation: Private vehicle Plan: Anticipate Kae will be discharged home when medically stable. She may benefit from new home health services for nursing, depending on the course of her illness. She will follow up with her community providers and plan of care and transport with her . CM will follow and continue to assess for discharge needs. Social Determinants of Health Screening Social Determinants of Health last assessed: 07/07/24 Will the Patient Participate in the Screening?: Yes Do you worry about having a steady place to live?: no Problems where you live: no known problems In the past 12 months, have you had to go without electric, gas, oil or water in your home?: no Have you or anyone in your house had to go without enough food to eat?: no Has lack of transportation kept you from medical appointments or from doing things needed for daily living?: no Has anyone in your life made you feel unsafe or unsupported?: no How hard is it for you to pay for the very basics like food, housing, medical care, and heating? Would you say it is:: Not hard at all Do you want help finding or keeping work or a job?: I do not need or want help If for any reason you need help with day-to-day activities such as bathing, preparing meals, shopping, managing finances, etc., do you get the help you need?: I don?t need any help How often do you feel lonely or isolated from those around you?: Never Do you speak a language other than [place] at home?: No Does the patient want assistance with any of the above?: No
[2024-07-08] VITALS (7 sets, daily range): BP systolic 133–164; BP diastolic 63–78; PULSE 102–114; RESP 18–20; TEMP 36–37.4; O2SAT 94–98
[2024-07-08] MEDS: Insulin Aspart 300 UNITS/3 ML PEN SC ×4 (00:49→18:22)
[2024-07-08] MEDS: ACETAMINOPHEN 1,000 MG/100 ML BAG 400 MG IVPB ×4 (02:56→21:41)
[2024-07-08] MEDS: Metoprolol 5 MG/5 ML VIAL 2.5 MG IVP ×4 (02:57→23:02)
[2024-07-08] MEDS: HYDROmorphone 2 MG/ML SYR 0.5 MG IVP ×7 (04:13→22:13)
[2024-07-08 07:27] LABS: Anion Gap 5.3 mmol/L (3-11); BUN 12 mg/dL (7-18); CO2 28.7 mmol/L (21.0-32.0); CREATININE 0.7 mg/dL (0.55-1.02); Calcium 8.3 mg/dL (8.5-10.1); Chloride 105 mmol/L (98-107); Estimated GFR 91.83 (mL/min/1.73m2); Ferritin 233 ng/mL (8-252); Glucose 297 mg/dL (74-106); PHOSPHORUS 2.5 mg/dL (2.6-4.7); Potassium 3.5 mmol/L (3.5-5.1); Sodium 139 mmol/L (136-145)
[2024-07-08 07:41] LABS: Folate 8.3 ng/mL (8.6-20.0); Vitamin B12 1166 pg/mL (193-986)
[2024-07-08] MEDS: Budesonide/Formoterol 80/4.5 6.9 GM 60 PUFF INH IH ×2 (08:26→20:36)
[2024-07-08] MEDS: Levalbuterol HFA 15 GM INH 2 PUFF IH ×3 (08:26→20:36)
[2024-07-08] MEDS: Normal Saline Flush 10 ML SYR IVP ×2 (10:02→10:55)
[2024-07-08] MEDS: Famotidine 20 MG/2 ML VIAL IVP ×2 (10:54→21:42)
[2024-07-08] MEDS: Enoxaparin 40 MG/0.4 ML SYR SC (11:26)
--- NOTE | 2024-07-08 11:50 | PT.INPN ---
PT Notes Visit Reasons: SBO Inpatient Physical Therapy Progress Note Date: 07/08/2024 Dates of Service: 07/01/2024 - 07/08/2024 PRECAUTIONS: TPN, IV access right upper extremity, standard precautions, FABRICE drain right abdomen SUBJECTIVE: Patient reports she is very tired and wishes she had more energy so she could go home OBJECTIVE PAIN: 6/10 without pain meds, 2/10 with pain meds BED MOBILITY/TRANSFERS Rolling L/R: Min assist Supine-sit: [] Min assist Sit-supine: Independent Sit-stand: [] Standby assist Stand-sit: Standby assist Bed-Chair: Standby assist FWW Chair-bed: Standby assist FWW GAIT Assistive Device:FWW Weight bearing:full Assist: SBA Distance: 100 feet Deviation: wide DEEPTI, reciprocal pattern VITALS: monitored via nursing STAIRS: unable ASSESSMENT: Patient is a 73year old female referred to physical therapy services with diagnosis of status post small bowel resection. Patient demonstrates some self-limiting behaviors has been only agreeable to participate 1 time per day due to pain. Patient presents with clinical signs and symptoms consistent with admitting diagnosis as demonstrated by the following impairment level findings 1.imapired strength BLE major muscle groups 2. impaired functional activity tolerance 3. impaired balance in standing 4. pain in abdomen with functional tasks Impairments are contributing to the following functional limitations: 1. AMPAC score 2. decline in bed mobility skills 3. Declining transfer skills 4. Difficulty with ambulation without assistive device and assistance 5. Increased time to complete mobility/ADL tasks 6. Risk for falls 7. Difficulty with managing steps Patient is assessed as a Moderate 47692 complexity based on the following: o History: Pt is 73 yo female presenting with complicated hospitalization requiring TPN and NG tube placement o Examination: Demonstrates impairments in strength, balance , functional activity tolerance and functional mobility o Presentation:evolving o Decision Making: moderate GOALS x 1 week 1. Supine-Sit independent NOT MET continue x 1 week 2. Sit-Supine independent MET 3. Sit-Stand independent NOT MET continue x 1 week 4. Stand-Sit independent with FWW NOT MET Continue x 1 week 5. Bed-Chair independent with FWW NOT MET Continue x 1 week 6. Chair-Bed independent with FWW NOT MET Continue x 1 week 7. Independent gait on level surface with use of FWW for at least 300 feet without report of pain nor dyspnea, NOT MET Continue x 1 week 8. Independent stair negotiation while holding onto B rails for at least 6 steps without report of pain nor dyspnea, NOT MET Continue x 1 week 9. Independent with home exercise program NOT MET Continue x 1 week 10. Good static and dynamic standing balance/tolerance NOT MET Continue x 1 week PLAN OF CARE/TREATMENT PLAN: 1-2x/day, 7 days/ week x 1 week Plan of care has been reviewed with the [employer] providing the service under Physical therapy direction. Initiate physical therapy intervention for strengthening, bed mobility, transfers, gait, stairs, balance training, use of assistive device. DISCHARGE RECOMMENDATIONS: Home with HH PT TREATMENT CODE/TIME: 54103 x 25 mins / [id number]
--- NOTE | 2024-07-08 14:02 | PDOC.CMPRO ---
Date of service: 07/08/24 Time of Service: 14:02 Care Management Progress Note Progress Note Text Progress Note Text: Bubba was lying in bed when CM met with her. She stated that she is doing ok today, but is still having a lot of pain. CM spoke to her RN, who was aware of her pain, and providing medication, as prescribed. Bubba stated that she provided a new MCR card to be updated; CM confirmed that it has been updated in the system. Bubba stated that she has not seen the MD today, but expects to see them later this afternoon. She reported that per MD, she would likely be here over the weekend. CM asked about HH services upon discharge, and she stated that she thinks it would be a good idea to have HH RN post discharge to check in on her a couple times a week, as her works a lot, so she is often home alone. CM will continue to follow. Discharge Potential Discharge Needs: Surgical F/U Appt Anticipated Barriers to Discharge: Medical Status Patient/Family Education Needs: Review discharge instructions, discuss Ask Me Three Transportation: Private vehicle Plan: Anticipate Kae will be discharged home when medically stable, with new HH RN. She will follow up with her community providers and plan of care and transport with her . CM will follow and continue to assess for discharge needs. Social Determinants of Health Screening Social Determinants of Health last assessed: 07/08/24 Will the Patient Participate in the Screening?: Yes Do you worry about having a steady place to live?: no Problems where you live: no known problems In the past 12 months, have you had to go without electric, gas, oil or water in your home?: no Have you or anyone in your house had to go without enough food to eat?: no Has lack of transportation kept you from medical appointments or from doing things needed for daily living?: no Has anyone in your life made you feel unsafe or unsupported?: no How hard is it for you to pay for the very basics like food, housing, medical care, and heating? Would you say it is:: Not hard at all Do you want help finding or keeping work or a job?: I do not need or want help If for any reason you need help with day-to-day activities such as bathing, preparing meals, shopping, managing finances, etc., do you get the help you need?: I don?t need any help How often do you feel lonely or isolated from those around you?: Never Do you speak a language other than [place] at home?: No Does the patient want assistance with any of the above?: No Anticipated HH Services Anticipated HH Services at Discharge [facility] Needed, RN Anticipated Date of Discharge: 07/11/24. Following Provider: Nikolas Matos.
--- NOTE | 2024-07-08 14:55 | PT.INNT ---
PT Notes Visit Reasons: SBO pt refused PM session today. I walked this morning and 30 min afterwards, my belly hurt bad. I am not doing any more PT.
--- NOTE | 2024-07-08 17:16 | W.PM.PROGNOT ---
Date of Service Date of service: 07/08/24 Time of Service: 14:00 Assessment and Plan Assessment and plan (1) Protein calorie malnutrition: Status: Acute (2) GERD (gastroesophageal reflux disease): Status: Chronic (3) Hypokalemia: Status: Acute (4) Anemia of chronic disease: Status: Acute (5) Diabetes mellitus: (6) COPD (chronic obstructive pulmonary disease): (7) Parkinsons disease: (8) Hypertension: (9) CAD (coronary artery disease): (10) Hyperlipidemia: (11) S/P exploratory laparotomy: (12) Enterocutaneous fistula: Status: Acute Assessment and plan: POD#10 tpn & lipids insulin qg coverage walk/PT lovenox pulm toilet pepcid minimal oral intact Subjective Subjective Interval history since last seen: Patient is seen and examined: they are doing well. THey have : no headaches. No CP or SOB. no productive cough. no dysuria. no leg pain or swelling. pt c/o abdominal pain, but no more so than usual. pt states she is not passing gas. Exam Narrative Exam Narrative: PHYSICAL EXAM GENERAL APPEARANCE: Alert, healthy appearance, oriented, x 3,? in no acute distress HYDRATION: Well hydrated HEAD, EYES, EARS, NECK, THROAT: Head is normocephalic, pupils equal, round, reactive to light and accommodation, ocular movement intact, sclera clear and no jaundice. ?edentulous LUNGS: normal respiration/normal chest excursion. ?Clear to auscultation bilaterally. ?No wheeze. ?HEART: Regular rate and rhythm. no murmurs EXTREMITY: No edema or cyanosis.? no leg pain, redness, swelling.? ABDOMEN:incision is c/d/i. no BS. mild distention. drainage continues from FABRICE drain. approx 100cc/shift Objective Last Vital Signs Temp 36.5 C 07/08/24 15:01 Pulse 102 H 07/08/24 16:44 Resp 18 07/08/24 15:01 BP 137/77 07/08/24 15:01 Pulse Ox 97 07/08/24 15:01 Laboratory Results - last 24 hr 07/08/24 06:10 Sodium 139 Potassium 3.5 Chloride 105 Carbon Dioxide 28.7 Anion Gap 5.3 BUN 12 Creatinine 0.7 Est GFR (CKD-EPI 2020) 91.83 Glucose 297 H Calcium 8.3 L Phosphorus 2.5 L Magnesium 2.0 Ferritin 233 Vitamin B12 1166 H Folate 8.3 L Time Spent with Patient Time Spent with Patient: 35-49 minutes Time was spent: preparing to see the patient(eg.review tests), obtaining and/or reviewing separately otained hiistory, ordering medications,tests, procedures, referring, communicating with other health urgent care physician assistant, indepentently interpreting results, counseling the patient, care coordination and other
--- NOTE | 2024-07-08 17:31 | NUR.NOTE ---
Nursing Note: Received phone call from Dr. Pirse who stated patient can have 2 cups of evonne jose or juice, but no caffeine, and water or ice chips as she pleases. Discussed with primary RN Stacy.
[2024-07-09] VITALS (9 sets, daily range): BP systolic 108–182; BP diastolic 62–78; PULSE 102–119; RESP 15–24; TEMP 35.3–37.5; O2SAT 95–98
[2024-07-09] MEDS: HYDROmorphone 2 MG/ML SYR 0.5 MG IVP ×5 (00:49→22:23)
[2024-07-09] MEDS: Normal Saline Flush 10 ML SYR IVP ×5 (00:49→22:24)
[2024-07-09] MEDS: Insulin Aspart 300 UNITS/3 ML PEN SC ×5 (00:49→23:47)
[2024-07-09] MEDS: Levalbuterol HFA 15 GM INH 2 PUFF IH ×3 (02:09→20:40)
[2024-07-09] MEDS: ACETAMINOPHEN 1,000 MG/100 ML BAG 400 MG IVPB ×2 (04:18→11:14)
[2024-07-09] MEDS: Metoprolol 5 MG/5 ML VIAL 2.5 MG IVP ×2 (04:18→11:15)
[2024-07-09 07:19] LABS: Anion Gap 5.7 mmol/L (3-11); BUN 14 mg/dL (7-18); CO2 28.3 mmol/L (21.0-32.0); CREATININE 0.7 mg/dL (0.55-1.02); Calcium 8.2 mg/dL (8.5-10.1); Chloride 105 mmol/L (98-107); Estimated GFR 91.83 (mL/min/1.73m2); Glucose 285 mg/dL (74-106); PHOSPHORUS 2.6 mg/dL (2.6-4.7); Potassium 3.8 mmol/L (3.5-5.1); Sodium 139 mmol/L (136-145)
--- NOTE | 2024-07-09 08:23 | DI.RAD_ITS ---
Exam(s) XR ABDOMEN FLAT UPRIGHT EXAM: XR ABDOMEN FLAT UPRIGHT CLINICAL HISTORY: ileus. TECHNIQUE: 2D digital imaging was performed. COMPARISON: CR XR ABDOMEN FLAT PLATE from 07/04/2024 FINDINGS: 3 views The NG tube is been removed. The stomach is not distended and there is air in both small and large b owel loops noted, none distended. However, there are few air-fluid levels noted in both sides of the pelvis. There is no free intraperitoneal air. Again noted are bilateral stimulators left-side for epidural leads and right side trans sacral lead. There is also multilevel fusion hardware in the mid-lower lumbar spine. No pelvic nor hip fractures evident. IMPRESSION: No dilated bowel loops. No free intraperitoneal air. Other findings as above. DATA REPOSITORY: RADIATION DOSE DELIVERED:
--- NOTE | 2024-07-09 08:32 | DI.VRAD_ITS ---
PROCEDURE INFORMATION: Exam: XR Abdomen Exam date and time: 07/09/2024 8:20 AM Age: 73 years old Clinical indication: Abdominal pain; Generalized; Patient HX: Recent bowel surgery TECHNIQUE: Imaging protocol: Radiologic exam of the abdomen. Views: 2 Views. Upright and supine views. COMPARISON: CR XR ABDOMEN FLAT PLATE 07/04/2024 1:09 PM FINDINGS: Tubes, catheters and devices: Neurostimulator overlies the thoracic canal and the right sacrum Gastrointestinal tract: No dilated bowel.. Intraperitoneal space: Surgical clips in the pelvis Bones/joints: Parallel spinous rods in the lumbosacral spine IMPRESSION: No dilated bowel.. Dictated and Authenticated by: Devonte Rehman MD. Ordering:ELLIOTT Kumar MD
[2024-07-09] MEDS: Famotidine 20 MG/2 ML VIAL IVP ×2 (09:06→19:50)
[2024-07-09] MEDS: Enoxaparin 40 MG/0.4 ML SYR SC (09:06)
--- NOTE | 2024-07-09 10:25 | W.PM.PROGNOT ---
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 -Patient is wanting to eat. She is tolerating orals at this time. Will increase oral intake gradually and monitor drainage output. This seems to be well-controlled and mostly draining out. Will monitor for signs of increasing abdominal pain -CT with water-soluble contrast on Thursday for source/intra-abdominal fluid collections. I am increasing her diet Thursday and Thursday slowly. And I want to wait to do the CT on Thursday to see if this causes any increase in intra-abdominal pain or fluid. -Switch to oral medications for better control of blood pressure/diabetes/chronic pain -Encourage ambulation Pulmonary toilet and DVT prophylaxis Local wound care picc -She will need home health at the time of discharge for drain management and dressing changes. At this point it seems to be contained controlled leak and drains nicely. There does not appear to be any intra-abdominal collections. CT Thursday after increasing diet. (5) Chronic abdominal pain: Status: Acute (6) Hypokalemia: Status: Acute (7) Asthma with COPD (chronic obstructive pulmonary disease): Status: Acute (8) PTSD (post-traumatic stress disorder): (9) Hypertension: (10) CAD (coronary artery disease): (11) Hyperlipidemia: (12) Diabetes mellitus: (13) Parkinsons disease: (14) COPD (chronic obstructive pulmonary disease): Subjective Subjective Interval history since last seen: Patient is seen and examined: they are doing well. THey have : no headaches. No CP or SOB. no productive cough. no dysuria. no leg pain or swelling. Patient is having bowel movements. No blood. She is tolerating liquids. She does not get any worsening of abdominal pain, nausea, bloating. With increasing her oral intake, has not made a difference in the output from her drain. She has mild tenderness around the drain site. There is minimal drainage from around the drain site labs and xray reviewed. Exam Narrative Exam Narrative: PHYSICAL EXAM GENERAL APPEARANCE: Alert, healthy appearance, oriented, x 3,? in no acute distress HYDRATION: Well hydrated HEAD, EYES, EARS, NECK, THROAT: Head is normocephalic, pupils equal, round, reactive to light and accommodation, ocular movement intact, sclera clear and no jaundice. Edentulous. No thrush LUNGS: normal respiration/normal chest excursion. ?Clear to auscultation bilaterally. ?No wheeze. ?HEART: Regular rate and rhythm. no murmurs EXTREMITY: No edema or cyanosis.? no leg pain, redness, swelling.? ABDOMEN: Incision is clean dry and intact. She has good bowel sounds. Drain output is same. It appears to have the consistency of ileal contents Objective Last Vital Signs Temp 36.6 C 07/09/24 07:37 Pulse 103 H 07/09/24 07:37 Resp 15 07/09/24 07:37 BP 108/78 07/09/24 07:37 Pulse Ox 97 07/09/24 07:37 Laboratory Results - last 24 hr 07/09/24 06:37 Sodium 139 Potassium 3.8 Chloride 105 Carbon Dioxide 28.3 Anion Gap 5.7 BUN 14 Creatinine 0.7 Est GFR (CKD-EPI 2020) 91.83 Glucose 285 H Calcium 8.2 L Phosphorus 2.6 Magnesium 2.0 Time Spent with Patient Time Spent with Patient: >50 minutes Time was spent: preparing to see the patient(eg.review tests), obtaining and/or reviewing separately otained hiistory, ordering medications,tests, procedures, referring, communicating with other health director of healthcare systems, indepentently interpreting results, counseling the patient, care coordination and other
[2024-07-09] MEDS: Budesonide/Formoterol 80/4.5 6.9 GM 60 PUFF INH IH (12:51)
[2024-07-09] MEDS: HYDROmorphone 2 MG TAB 1 MG PO ×2 (15:07→19:46)
[2024-07-09] MEDS: Acetaminophen 500 MG TAB 1000 MG PO ×2 (16:29→23:41)
[2024-07-09] MEDS: metFORMIN 500 MG TAB 1000 MG PO (16:29)
--- NOTE | 2024-07-09 16:52 | PT.INNT ---
PT Notes Visit Reasons: SBO Refused x 3 today stating that movement makes her hurt. Complained of 8/10 pain at rest and anxious about it going up higher with movement. Added that after walking a short distance yesterday, patient was hurting. She did not want to feel that again. Patient indicated that Dilaudid and Tylenol worked better than the pain medication she is on now. Nurse Stacy was made aware about patient's refusal who said that patient was already given her pain pill about half an hour ago. Will attempt to see how patient does tomorrow and will again continue to coordinate with nurse for pain pre-medication.
[2024-07-10 03:30] VITALS: BP 171/81; PULSE 113; RESP 24; TEMP 36.2; O2SAT 97
[2024-07-10] MEDS: HYDROmorphone 2 MG TAB 1 MG PO ×4 (03:42→19:53)
[2024-07-10] MEDS: Insulin Aspart 300 UNITS/3 ML PEN SC ×3 (06:10→17:26)
[2024-07-10 06:58] LABS: BUN 14 mg/dL (7-18); CREATININE 0.7 mg/dL (0.55-1.02); Calcium 8.2 mg/dL (8.5-10.1); Chloride 105 mmol/L (98-107); Estimated GFR 91.83 (mL/min/1.73m2); Glucose 270 mg/dL (74-106); PHOSPHORUS 2.6 mg/dL (2.6-4.7); Sodium 139 mmol/L (136-145)
[2024-07-10 08:14] VITALS: BP 159/72; PULSE 107; RESP 18; TEMP 36.5; O2SAT 96
[2024-07-10] MEDS: Famotidine 20 MG/2 ML VIAL IVP ×2 (08:26→19:53)
[2024-07-10] MEDS: HYDROmorphone 2 MG/ML SYR 0.5 MG IVP ×3 (08:26→21:07)
[2024-07-10] MEDS: Acetaminophen 500 MG TAB 1000 MG PO ×2 (08:28→14:51)
[2024-07-10] MEDS: amLODIPine 10 MG TAB PO (08:28)
[2024-07-10] MEDS: Losartan 50 MG TAB 100 MG PO (08:28)
[2024-07-10] MEDS: metFORMIN 500 MG TAB 1000 MG PO ×2 (08:29→16:22)
[2024-07-10] MEDS: Isosorbide Mononitrate 60 MG TABCR PO (08:30)
[2024-07-10] MEDS: Enoxaparin 40 MG/0.4 ML SYR SC (08:30)
[2024-07-10] MEDS: Normal Saline Flush 10 ML SYR IVP ×4 (08:31→21:07)
[2024-07-10] MEDS: Levalbuterol HFA 15 GM INH 2 PUFF IH ×2 (10:42→20:57)
[2024-07-10] MEDS: Budesonide/Formoterol 80/4.5 6.9 GM 60 PUFF INH IH ×2 (10:42→20:57)
[2024-07-10 11:33] VITALS: BP 139/62; PULSE 110; RESP 19; TEMP 36.4; O2SAT 97
--- NOTE | 2024-07-10 12:17 | PT.INTREAT ---
PT Notes Visit Reasons: SBO Physical Therapy Inpatient Treatment Note Date: 07/10/2024 Precautions: Fall. Standard. Activity as tolerated, pre-medicate for pain. Subjective: Nurse Stacy gave patient her pain medication abut 45 minutes after and patient is agreeable to get out of bed to walk. was happy to help with wheelchair follow. Was able to directly request for pain medication change directly with Dr. Pires when she walked from her room to the nurses' station. Objective: General Observation: TPN in place. IV access right upper extremity. FABRICE drain right abdome Mental Status: Alert and oriented as to person, place, time, and purpose. Able to pay attention, focus, and respond appropriately. Pain: 5-6/10 pain in abdominal area Vital Signs: Closely monitored by nursing staff Bed Mobility/Transfers: Minimal cueing provided for use of B hands as needed for support, movement sequence, AD management, and posture to reduce fall risk and minimize pain report Supine to sit minimal assist with HOB at 30 degrees Sit to stand stand by assist without AD Stand to sit stand by assist without AD Bed to bedside commode stand by assist without AD bed to reclining chair stand by assist without AD GAIT Assistive Device:FWW Weight bearing:FWB Assist: SBA Distance: 120 feet Deviation: Decreased colin. Somewhat bent forward to favor abdominal incision. No LOB. No SOB. VITALS: Closely monitored by nursing staff STAIRS: Not done. Patient fatigued and in discomfort after the walk ASSESSMENT: Patient is able to perform walking activity if pain level is controlled, continue to work with nurse with pain pre-medication. Works better in the morning. More motivated to participate with present as she feels more secure. Continues to favor site of incision during walk due to increased discomfort when asked to stand straighter PLAN OF CARE/TREATMENT PLAN: 1-2x/day, 7 days/ week x 1 week. Plan of care has been reviewed with the MACHINE SHOP INSTRUCTOR providing the service under Physical therapy direction. Initiate physical therapy intervention for strengthening, bed mobility, transfers, gait, stairs, balance training, use of assistive device. DISCHARGE RECOMMENDATIONS: Home with HH PT TREATMENT CODE/TIME: 43262 x 18 minutes (11:42-12:00).
--- NOTE | 2024-07-10 12:42 | PGE_ITS ---
Date of Service Date of service: 07/10/24 Time of Service: 12:43 Assessment and Plan Assessment and plan (1) Hyperglycemia: Status: Acute Assessment and plan: Patient is back on her diabetes medication (2) Protein calorie malnutrition: Status: Acute Assessment and plan: Clear liquids and clear Ensure Continue TPN Glucose coverage (3) GERD (gastroesophageal reflux disease): Status: Chronic (4) Enterocutaneous fistula: Status: Acute Assessment and plan: Increase output with regular diet CT with oral contrast tomorrow Maintain drain. CT tomorrow to see if we can pinpoint area of fistula. And see if there is any intra-abdominal soilage. Patient is complaining a large amount of pain. But she has no fever or white count. Patient has chronic pain so it is difficult to determine if this is pain due to chronic narcotic need or if there is a intra- abdominal collection forming. Continue supportive care Encourage ambulation (5) Chronic abdominal pain: Status: Acute Assessment and plan: Patient is receiving a large amount narcotics. Added gabapentin for increased coverage. Try to decrease the amount of narcotics that she is on. (6) Anemia of chronic disease: Status: Acute (7) Asthma with COPD (chronic obstructive pulmonary disease): Status: Acute Subjective Subjective Interval history since last seen: Patient is up walking with PT. Somehow she did receive a regular tray today. She definitely has increased output from her drain although it has not been recorded by nursing. It is the same color but there is at least 2 to 300 cc in her bag at noon time today. Patient complains of abdominal pain and that her pain meds are not working for her. I put her on her home dose that was she is receiving plus IV Dilaudid. Unfortunately I think patient is addicted to narcotics. Will add gabapentin and for further control. She is also on Tylenol. She is allergic to Toradol. Patient stated she vomited up everything today. I did discuss this with her nurse and she denies. Patient ate at least half of the regular tray. She did have a bowel movement yesterday. She is back on metformin at thousand twice daily. Blood sugars have pretty much been the same Exam Narrative Exam Narrative: PHYSICAL EXAM GENERAL APPEARANCE: Alert, healthy appearance, oriented, x 3,? in no acute distress HYDRATION: Well hydrated HEAD, EYES, EARS, NECK, THROAT: Head is normocephalic, pupils equal, round, reactive to light and accommodation, ocular movement intact, sclera clear and no jaundice. ? LUNGS: normal respiration/normal chest excursion. ?Clear to auscultation bilaterally. ?No wheeze. ?HEART: Regular rate and rhythm. no murmurs ABDOMEN: s incision is clean dry and intact. Increased output from drain with increased oral nutrition Objective Last Vital Signs Temp 36.4 C 07/10/24 11:33 Pulse 110 H 07/10/24 11:33 Resp 19 07/10/24 11:33 BP 139/62 07/10/24 11:33 Pulse Ox 97 07/10/24 11:33 Laboratory Results - last 24 hr 07/10/24 06:11 Sodium 139 Potassium 4.0 Chloride 105 Carbon Dioxide 28.0 Anion Gap 6.0 BUN 14 Creatinine 0.7 Est GFR (CKD-EPI 2020) 91.83 Glucose 270 H Calcium 8.2 L Phosphorus 2.6 Magnesium 2.0 Time Spent with Patient Time Spent with Patient: 35-49 minutes Time was spent: preparing to see the patient(eg.review tests), obtaining and/or reviewing separately otained hiistory, ordering medications,tests, procedures, referring, communicating with other health direct care professional, indepentently interpreting results, counseling the patient, care coordination and other
[2024-07-10] MEDS: Gabapentin 300 MG CAP PO ×2 (14:51→19:54)
[2024-07-10 16:39] VITALS: BP 131/66; PULSE 111; RESP 18; TEMP 36.8; O2SAT 97
[2024-07-10 19:54] VITALS: BP 136/66; PULSE 109; RESP 18; TEMP 36.6; O2SAT 96
[2024-07-10 23:29] VITALS: BP 138/61; PULSE 115; RESP 22; TEMP 36.2; O2SAT 96
--- NOTE | 2024-07-11 | DI.CT_ITS ---
Exam(s) CT ABDOMEN PELVIS WO EXAM: CT ABDOMEN PELVIS WO CLINICAL HISTORY: enterocutaneous fistula/needs water soluable contr. TECHNIQUE: Imaging Protocol: Axial computed tomography images with coronal and sagittal reformatted images were created and reviewed CONTRAST MATERIAL: Intravenous: none Oral: Yes. COMPARISON: CT CT ABDOMEN PELVIS WO from 05/02/[address] ABDOMEN PELVIS WO from 07/03/2024 FINDINGS: VISUALIZED LUNG BASES: No nodules nor pleural effusions evident. ABDOMEN: GI: Again noted is evidence of previous cholecystectomy, appendectomy and hysterectomy, bowel surgery , and lumbar spinal fusion surgery and there are bilateral posterior subcutaneous stimulators, left s jesse being for epidural leads and right side with right trans sacral lead. There is also evidence of more recent surgery bowel surgery and there is a surgical drain in place which enters from the right side and extends across the anterior midline with distal tip in the anterior left side of the abdomen , anterior to the distal transverse colon. There is oral contrast in the nondistended stomach and duodenum as well as within left-sided jejunal loops which are slightly prominent in diameter. Oral contrast is also seen in right-side of the colo n and throughout the transverse colon.. Oral contrast has reached the level of the splenic flexure o f the colon by time of image acquisition. There is free intraperitoneal air and oral contrast also noted within a finding which has appearance of an abscess located in the midline anteriorly within the abdominal cavity at and below the umbilicu s level, predominately below the level of the drain. This fecal containing collection measures appro ximately 4.5 cm wide by 3 cm AP by 8.5 cm craniocaudal. The majority of this abscess is not being se rvice by the surgical drain which is located above the abscess. However, on the coronal images there is evident a contrast filled tract between this anteriorly a Gali abscess and the drain, this tract measuring approximately 4 cm length by 0 point 5 cm wide. There is a bowel anastomosis in the lower pelvis just above the urinary bladder. There is also a small abscess in the lower right pelvis anteromedial to the obturator internus muscle (series 7/image 71) which measures approximately 3.8 cm AP x 1.5 cm wide by 2.9 cm craniocaudal (ser ies 3/image 34). This soft tissue abscess is intimately associated with the posterior aspect of the right superior pubic ramus. The bone of the pubic ramus is intact LIVER: Hepatic steatosis again noted. No discrete intrahepatic lesions nor abscesses within the live r evident on this non few study. GALLBLADDER/BILIARY: Gallbladder again noted be surgically absent. CBD is not dilated. PANCREAS: No evidence of pancreatic mass nor dilatation of the pancreatic duct. SPLEEN: Spleen is not enlarged. No obvious intrasplenic lesions. ADRENALS: There are no significant adrenal masses. KIDNEYS:No cysts evident. No solid renal masses. No calculi nor hydronephrosis. . ABDOMINAL AORTA: Abdominal aorta is calcified but not enlarged. Iliac arteries are calcified but not enlarged. LYMPH NODES: There is no retroperitoneal nor paraaortic adenopathy. ABDOMINAL WALL: There is a small fat only containing anterior abdominal wall umbilical hernia. There is some gas within subcutaneous fat over the anterior left abdominal wall. Suspect that this may be related to injections at this site. There is no drainable collection at this site. PELVIS: LYMPH NODES: There is no intrapelvic nor inguinal adenopathy. GI: There is sigmoid diverticuli without evidence of obvious diverticulitis. URINARY BLADDER: Bladder cystocele noted REPRODUCTIVE: Prior hysterectomy. Ovaries not identified probably also surgically absent. OSSEOUS: Fusion surgery with posterior hardware L4-5-S1 levels. No fractures. No osteomyelitis evid ent. No lytic nor blastic osseous lesions. IMPRESSION: 1. In this patient who has had recent surgery the main finding is in oral contrast filled abscess in the anterior abdominal cavity predominately below the level of the surgically placed drain, this absc ess measuring 4.5 cm wide x 3 cm AP x 8.5 cm craniocaudal. Although the abscess is predominately bel ow the level of the drain, there does appear to be a tract connecting the abscess to the drain. Neve rtheless, this drain is inadequate with respect to servicing the abscess described above. 2. There is another smaller abscess in the lower right pelvis intimately related to the posterior asp ect of the superior pubic ramus on the right side, just medial to the right obturator internus muscle and lateral to the urinary bladder, this abscess measuring 3.8 cm APx 1.5 cm wide x 2.9 cm craniocau sandra. 3. Multiple prior surgeries as described above. Findings of this report called by myself to Dr. Pires 07/11/24 @ 2:45 pm RADIATION DOSE DELIVERED: 682.73mGy.cm Total DLP DATA REPOSITORY: All CT scans at this facility are submitted to the National Radiology Data Registry (NRDR) Dose Index Registry (DIR) with the [employer] ([employer]). RADIATION OPTIMIZATION: All CT scans at this facility use at least one of these dose optimization te chniques: automated exposure control; mA and/or kV adjustment per patient size (includes targeted exa ms where dose is matched to clinical indication); or iterative reconstruction.
[2024-07-11] MEDS: Acetaminophen 500 MG TAB 1000 MG PO ×4 (00:18→23:20)
[2024-07-11] MEDS: HYDROmorphone 2 MG TAB 1 MG PO ×5 (00:19→21:57)
[2024-07-11] MEDS: Insulin Aspart 300 UNITS/3 ML PEN SC ×4 (00:24→18:41)
[2024-07-11] MEDS: HYDROmorphone 2 MG/ML SYR 0.5 MG IVP ×5 (01:43→23:21)
[2024-07-11] MEDS: Normal Saline Flush 10 ML SYR IVP ×7 (01:44→21:40)
[2024-07-11] MEDS: Levalbuterol HFA 15 GM INH 2 PUFF IH ×4 (02:50→20:53)
[2024-07-11 05:11] VITALS: BP 141/66; PULSE 107; RESP 18; TEMP 36.3; O2SAT 96
[2024-07-11 07:52] VITALS: BP 136/68; PULSE 112; RESP 18; TEMP 36.3; O2SAT 97
[2024-07-11] MEDS: Budesonide/Formoterol 80/4.5 6.9 GM 60 PUFF INH IH ×2 (09:13→20:52)
[2024-07-11] MEDS: Enoxaparin 40 MG/0.4 ML SYR SC (09:19)
[2024-07-11] MEDS: Famotidine 20 MG/2 ML VIAL IVP ×2 (09:19→21:41)
[2024-07-11] MEDS: metFORMIN 500 MG TAB 1000 MG PO ×2 (09:20→16:03)
[2024-07-11] MEDS: Losartan 50 MG TAB 100 MG PO (09:20)
[2024-07-11] MEDS: amLODIPine 10 MG TAB PO (09:20)
[2024-07-11] MEDS: Gabapentin 300 MG CAP PO ×3 (09:21→21:41)
[2024-07-11] MEDS: Isosorbide Mononitrate 60 MG TABCR PO (09:21)
--- NOTE | 2024-07-11 09:24 | PDOC.CMPRO ---
Date of service: 07/11/24 Time of Service: 09:24 Care Management Progress Note Progress Note Text Progress Note Text: Bubba was lying in be when CM met with her. She reported that she is still having a lot of abdominal pain. CM asked if she had been medicated recently and she stated she had not. Her nurse was contacted and was agreeable to medicating her at that time. Bubba shared that she has not seen her provider yet today. A CT scan of the abdomen and pelvis was done today and showed that Bubba has 2 intra-abdominal abscesses. One is just below where her drain is but this drain is inadequate with respect to servicing the abscess described above. She has a smaller one in her right lower pelvis. Bbuba commented that she feels that she would be fine if she could just go home. She has not received the results of the CT scan yet however. Bubba remains on a clear liquid diet. Discharge Potential Discharge Needs: PCP F/U Appt and Surgical F/U Appt Anticipated Barriers to Discharge: Medical Status Patient/Family Education Needs: Review discharge instructions, discuss Ask Me Three Transportation: Private vehicle Plan: Anticipate Kae will be discharged home when medically stable, with new RN and PT. She will follow up with her community providers and plan of care and transport with her . CM will follow and continue to assess for discharge needs. Social Determinants of Health Screening Social Determinants of Health last assessed: 07/11/24 Will the Patient Participate in the Screening?: Yes Do you worry about having a steady place to live?: no Problems where you live: no known problems In the past 12 months, have you had to go without electric, gas, oil or water in your home?: no Have you or anyone in your house had to go without enough food to eat?: no Has lack of transportation kept you from medical appointments or from doing things needed for daily living?: no Has anyone in your life made you feel unsafe or unsupported?: no How hard is it for you to pay for the very basics like food, housing, medical care, and heating? Would you say it is:: Not hard at all Do you want help finding or keeping work or a job?: I do not need or want help If for any reason you need help with day-to-day activities such as bathing, preparing meals, shopping, managing finances, etc., do you get the help you need?: I don?t need any help How often do you feel lonely or isolated from those around you?: Never Do you speak a language other than Sinhala at home?: No Does the patient want assistance with any of the above?: No
[2024-07-11] MEDS: diphenhydrAMINE 50 MG/ML VIAL IVP (11:17)
[2024-07-11] MEDS: Ondansetron 4 MG/2 ML VIAL IVP (11:18)
[2024-07-11] MEDS: Hydrocortisone SOD SUC. 100 MG VIAL 200 MG IVP (11:18)
--- NOTE | 2024-07-11 12:08 | PTTR_ITS ---
PT Notes Visit Reasons: SBO Physical Therapy Inpatient Treatment Note Date: 07/11/2024 Precautions: Fall. Standard. Activity as tolerated, pre-medicate for pain. Subjective: Pt reports she is frustrated by the feeling of hunger and inability to eat. She states if she can't eat here she can go home and not eat there . Objective: General Observation: TPN in place. IV access right upper extremity. FABRICE drain right abdomen Mental Status: Alert and oriented as to person, place, time, and purpose. Able to pay attention, focus, and respond appropriately. Pain: 4-5/10 pain in abdominal area pre session Vital Signs: Closely monitored by nursing staff Bed Mobility/Transfers: Minimal cueing provided for use of B hands as needed for support, movement sequence, AD management, and posture to reduce fall risk and minimize pain report Supine to sit minimal assist with HOB at 30 degrees Sit to stand stand by assist without AD Stand to sit stand by assist without AD Bed to chair stand by assist without AD Toilet to bed standby assist without assistive device GAIT Assistive Device:FWW Weight bearing:FWB Assist: SBA Distance: 150 feet Deviation: Decreased colin. As patient progressed with distance she was noted to be somewhat bent forward to favor abdominal incision. No LOB. No SOB. VITALS: Closely monitored by nursing staff STAIRS: Not done. Patient fatigued and in discomfort after the walk ASSESSMENT: Patient agreeable to participate in ambulation this morning and motivated that she was able to complete the small loop around the elevator on this day. She continues to be limited by abdominal pain with ambulation. Patient able to ambulate short distances within room without assistive device standby assist without loss of balance. Patient continues to defer stairs due to discomfort and reports of fatigue. PLAN OF CARE/TREATMENT PLAN: 1-2x/day, 7 days/ week x 1 week. Plan of care has been reviewed with the CLINICAL PSYCHOLOGY TEACHER providing the service under Physical therapy direction. Initiate physical therapy intervention for strengthening, bed mobility, transfers, gait, stairs, balance training, use of assistive device. DISCHARGE RECOMMENDATIONS: Home with HH PT TREATMENT CODE/TIME: 45565 x 18 minutes/[id number]
[2024-07-11 12:20] VITALS: BP 149/69; PULSE 125; RESP 18; TEMP 36.7; O2SAT 96
[2024-07-11] MEDS: Breeza Beverage 473 ML BTL PO ×2 (14:26→14:27)
[2024-07-11] MEDS: Omnipaque 350 MG/ML 50 ML BTL IJ (14:30)
[2024-07-11 15:27] VITALS: BP 130/56; PULSE 110; RESP 18; TEMP 36.3; O2SAT 95
--- NOTE | 2024-07-11 16:21 | PT.INTREAT ---
PT Notes Visit Reasons: SBO Physical Therapy Inpatient Treatment Note Date: 07/11/2024 Second session Precautions: Fall. Standard. Activity as tolerated, pre-medicate for pain. Subjective: Pt reports she is tired from her test. Patient requesting use of bathroom agreeable to ambulate Objective: General Observation: Patient presented in wheelchair after returning from test. TPN in place. IV access right upper extremity. FABRICE drain right abdomen Mental Status: Alert and oriented as to person, place, time, and purpose. Able to pay attention, focus, and respond appropriately. Pain: 6?7/10 pain in abdominal area pre session Vital Signs: Closely monitored by nursing staff Bed Mobility/Transfers: Minimal cueing provided for use of B hands as needed for support, movement sequence, AD management, and posture to reduce fall risk and minimize pain report Sit to supine with HOB at 30 degrees standby assist Sit to stand stand by assist without AD Stand to sit stand by assist without AD Bed to chair stand by assist without AD Toilet to bed standby assist 25 feet with patient pushing IV pole VITALS: Closely monitored by nursing staff STAIRS: Not done. Patient fatigued and in discomfort after the walk ASSESSMENT: Patient agreeable to participate with purposeful functional mobility tasks within her room. She continued to decline attempts at stairs although did discuss with present need to participate in stairs prior to discharge to home to ensure her safe mobility. Will attempt next session to start with stairs via transporting patient to the stairs in a wheelchair to conserve energy and reduce pain in abdomen PLAN OF CARE/TREATMENT PLAN: 1-2x/day, 7 days/ week x 1 week. Plan of care has been reviewed with the STRATEGY EXECUTION CONSULTANT providing the service under Physical therapy direction. Initiate physical therapy intervention for strengthening, bed mobility, transfers, gait, stairs, balance training, use of assistive device. DISCHARGE RECOMMENDATIONS: Home with PT TREATMENT CODE/TIME: 20394 x 14 minutes/1400?[id number]
--- NOTE | 2024-07-11 18:23 | W.PM.PROGNOT ---
Date of Service Date of service: 07/11/24 Time of Service: 18:26 Assessment and Plan Assessment and plan (1) Enterocutaneous fistula: Status: Acute Assessment and plan: I reviewed the findings of her CAT scan today, explaining that the dye that she got for the test is clearly leaking from some part of her intestinal tract, and is formed some pockets inside. Some of this is draining out through the surgical drain, but it is not all evacuated. Obviously, this is a frustrating and challenging situation. Although it is tempting to go back to the operating room and try to identify the source of the enterotomy, I worry that that would be fraught with complications, especially with the timing relative to her last operation and the hostility of her abdomen at that time. Since she is really not all that ill from this, I think ongoing drainage is probably her best option. I do think there is a suitable target for another percutaneous drain, and if we can help evacuate all of that and isolate the enteric source, I think that would be in her best interest overall. Aside from the tachycardia, she does not have any other major signs of sepsis, despite cessation of antibiotic therapy for several days. For now, we will continue the TPN, and see if [facility] is able to access any of the sites. Subjective Subjective Interval history since last seen: Dave has been up, walking around a little bit, and she tells me her abdominal pain is about the same as yesterday. She is hungry, and is passing some flatus today. Exam GI Other: Her abdomen is soft, and really not all that tender. The incision is clean, there are no signs of infection. The drain still seems consistent with succus. Objective Last Vital Signs Temp 97.3 F L 07/11/24 15:27 Pulse 110 H 07/11/24 15:27 Resp 18 07/11/24 15:27 BP 130/56 L 07/11/24 15:27 Pulse Ox 95 07/11/24 15:27 Time Spent with Patient Time Spent with Patient: >50 minutes Time was spent: preparing to see the patient(eg.review tests), ordering medications,tests, procedures, referring, communicating with other health plant health care technician, indepentently interpreting results, counseling the patient and care coordination
[2024-07-11 18:43] VITALS: BP 143/66; PULSE 112; RESP 18; TEMP 36.6; O2SAT 96
[2024-07-11 23:24] VITALS: BP 151/66; PULSE 101; RESP 19; TEMP 36.8; O2SAT 96
[2024-07-12] MEDS: Insulin Aspart 300 UNITS/3 ML PEN SC ×4 (00:16→17:59)
[2024-07-12 03:19] VITALS: BP 131/67; PULSE 95; RESP 17; TEMP 36.2; O2SAT 96
[2024-07-12] MEDS: HYDROmorphone 2 MG TAB 1 MG PO ×5 (03:32→22:30)
[2024-07-12] MEDS: Normal Saline Flush 10 ML SYR IVP ×5 (04:25→19:54)
[2024-07-12] MEDS: HYDROmorphone 2 MG/ML SYR 0.5 MG IVP ×4 (04:25→19:53)
[2024-07-12 07:10] LABS: HCT 28.2 % (36.0-46.0); HGB 8.7 g/dL (11.2-15.7); MCH 29.3 pg (27.0-33.0); MCHC 30.9 % (32.0-36.0); MCV 95 fL (80-95); Platelet Count 507 10^3/uL (130-400); RBC 2.97 10^6/uL (3.93-5.22); RDW 14.3 % (11.7-14.6); RDW-SD 49.7 fL; WBC 9.72 10^3/uL (4.4-10.8)
[2024-07-12 07:31] LABS: ALT 13 U/L (14-59); AST 10 U/L (15-37); Albumin 2.1 g/dL (3.4-5.0); Alkaline Phosphatase 55 U/L (46-116); Anion Gap 4.2 mmol/L (3-11); BUN 16 mg/dL (7-18); Bilirubin, Total 0.19 mg/dL (0.2-1.0); CO2 30.8 mmol/L (21.0-32.0); CREATININE 0.7 mg/dL (0.55-1.02); Calcium 8.6 mg/dL (8.5-10.1); Chloride 106 mmol/L (98-107); Estimated GFR 91.83 (mL/min/1.73m2); Glucose 170 mg/dL (74-106); PHOSPHORUS 3.3 mg/dL (2.6-4.7); Potassium 3.8 mmol/L (3.5-5.1); Sodium 141 mmol/L (136-145); Total Protein 6.6 g/dL (6.4-8.2)
[2024-07-12 07:51] VITALS: BP 147/65; PULSE 113; RESP 18; TEMP 36.6; O2SAT 96
[2024-07-12] MEDS: Enoxaparin 40 MG/0.4 ML SYR SC (08:02)
[2024-07-12] MEDS: Gabapentin 300 MG CAP PO ×3 (08:03→20:05)
[2024-07-12] MEDS: amLODIPine 10 MG TAB PO (08:03)
[2024-07-12] MEDS: Acetaminophen 500 MG TAB 1000 MG PO ×3 (08:03→22:31)
[2024-07-12] MEDS: metFORMIN 500 MG TAB 1000 MG PO ×2 (08:03→17:59)
[2024-07-12] MEDS: Losartan 50 MG TAB 100 MG PO (08:03)
[2024-07-12] MEDS: Isosorbide Mononitrate 60 MG TABCR PO (08:03)
[2024-07-12] MEDS: Famotidine 20 MG/2 ML VIAL IVP (08:04)
--- NOTE | 2024-07-12 09:14 | W.PM.PROGNOT ---
Date of Service Date of service: 07/12/24 Time of Service: 09:14 Assessment and Plan Assessment and plan (1) Enterocutaneous fistula: Status: Chronic Assessment and plan: 73-year-old woman is postop 2 weeks from exploratory laparotomy and lysis of adhesions with small bowel resection for chronic obstructions. She had a very hostile abdomen that was near?frozen. She developed output from her surgical drain on postoperative day 4 that had enteric appearance to it. She has not been on antibiotics, she is not having any fevers, her electrolytes are balanced and all of her organs are functioning normally and adequately. While she is on TPN, she is also tolerating p.o. intake and, while that does increase the drain output, she continues to have bowel function from below and even on her CT scan, contrast is seen opacifying all the way through into the transverse colon. Her fistula output seems to be somewhere between 250-500 cc in 24 hours. While this is not technically a low?output fistula, it is also not a high output fistula. It is closer to being low?output then high. Clinically she is doing excellent. There is no evidence of sepsis or peritonitis or any systemic illness really. The CT scan shows to fluid collections, one filled with contrast and the other seemingly to be a likely abscess. They are both very close to the surgical drain both in proximity as well as seemingly connected to it. I wonder if the more anterior midline component is not adequately draining through the surgical drain because the fenestrations on the drain are far away from it. Clinically she has no pain or discomfort on the left side and I am confident that the distal part of the drain is in communication with that more lateral and superior fluid collection. On examination, her discomfort, though mild, is certainly directly over this lower aspect that looks like an undrained abscess. I suspect it is continuous with the other fluid collection overall and that is why she is not getting sick from it. Nonetheless it does not seem adequately drained. There is another small abscess down in her pelvis which I think is clinically irrelevant and I do not think represents a leak but rather probably some component of retained contamination only. I would not dean that for now. I had a detailed conversation with her at the bedside today about our goals of care. Right now our goals are to stay out of her abdomen and do no more surgery. The risk of making everything way worse is substantial. I told her she may have the drain for up to a year potentially. Hard to say. She has had an ostomy before and I told her that this is kind of like having a small ostomy and she understands. Overall plan for today: Enteric nutrition is critical. I am hoping she can eat regular food without having the drain output become too high. She has not needed any antibiotics for quite some time and that continues to be the case today. I am going to repeat another CT scan tomorrow morning which will be 48 hours from the last one. No contrast. We will see what residual contrast is still hanging out and where. Might consult IR for drainage tomorrow after the CT scan results. We really need to monitor the drain output closely on volume over the next 48 hours and I am hoping to wean her off of TPN and manage her nutrition, her hydration and her electrolytes with p.o. intake only. If we can get her on only oral hydration/medication/nutrition then she can be discharged home with the drain(s) indefinitely and we will manage her in the office every few weeks to keep track of things and hopefully the fistula closes up on its own. Subjective Subjective Interval history since last seen: Overnight no events or clinical changes. No fevers. No nausea or vomiting. She continues to have bowel function and says I have had many bowel movements. At the bedside she has no complaints. She says she wants some regular food. She says there is absolutely no pain on the left side and she is very happy about that. She does have some abdominal discomfort but describes it as being very low - just beneath her surgical cut. She says she has absolutely no pain as long she gets the pain medication in this location. When the pain medication wears off, then she starts to feel the discomfort but says it is nothing like what she had before her surgery. She has no problems ambulating. The drain output does not bother her. She is urinating well. Exam Narrative Exam Narrative: Gen: Non-toxic, comfortable and interactive Neuro: Alert and oriented x3 Psych: Good mood and affect. Good insight and understanding into condition. Chest: Non-labored breathing, no wheezing, no visible shortness of breath. Heart: Regular Abdomen: Soft, nondistended and really not tender anywhere. At the lower aspect of her incision, there is some discomfort to deep palpation but it is quite unimpressive and certainly no peritoneal signs. She does not have any rebound and does not guard. The drain has dark enteric?appearing contents in it that is mostly thin. No visible purulence. Her midline incision is healing very nicely. No erythema. No tenderness. The skin is completely intact. The eric are intact. Extremities: Free range of motion x 4. Not noticeably swollen. Objective Last Vital Signs Temp 97.9 F 07/12/24 07:51 Pulse 113 H 07/12/24 07:51 Resp 18 07/12/24 07:51 BP 147/65 H 07/12/24 07:51 Pulse Ox 96 07/12/24 07:51 Laboratory Results - last 24 hr 07/12/24 06:40 WBC 9.72 RBC 2.97 L Hgb 8.7 L Hct 28.2 L MCV 95 MCH 29.3 MCHC 30.9 L RDW 14.3 Plt Count 507 H MPV 11.0 Sodium 141 Potassium 3.8 Chloride 106 Carbon Dioxide 30.8 Anion Gap 4.2 BUN 16 Creatinine 0.7 Est GFR (CKD-EPI 2020) 91.83 Glucose 170 H Calcium 8.6 Phosphorus 3.3 Magnesium 2.0 Total Bilirubin 0.19 L AST 10 L ALT 13 L Alkaline Phosphatase 55 Total Protein 6.6 Albumin 2.1 L Time Spent with Patient Time Spent with Patient: 25-34 minutes Time was spent: preparing to see the patient(eg.review tests), obtaining and/or reviewing separately otained hiistory, ordering medications,tests, procedures, referring, communicating with other health neurocritical care physician, indepentently interpreting results, counseling the patient and care coordination
[2024-07-12 11:44] VITALS: BP 110/55; PULSE 120; RESP 20; TEMP 36; O2SAT 95
--- NOTE | 2024-07-12 14:56 | PDOC.CMPRO ---
Date of service: 07/12/24 Time of Service: 14:56 Care Management Progress Note Progress Note Text Progress Note Text: Bubba was lying in bed watching TV when CM met with her. She was pleasant and engaged well in conversation. She talked about her animals at home that she is missing; she has two small dogs and a parrot, Alvaro. She stated that her is taking care of everything at home in her absence, which she is grateful for. She stated that per MD, she may be able to return home in the next few days, if she continues to improve. She is looking forward to going home, and is happy to have HH RN and PT to support her transition home. CM will continue to follow. Discharge Potential Discharge Needs: Surgical F/U Appt Anticipated Barriers to Discharge: Medical Status Patient/Family Education Needs: Review discharge instructions, discuss Ask Me Three Transportation: Private vehicle Plan: Anticipate Kae will be discharged home when medically stable, with new HH RN and PT. She will follow up with her community providers and plan of care and transport with her . CM will follow and continue to assess for discharge needs. Social Determinants of Health Screening Social Determinants of Health last assessed: 07/12/24 Will the Patient Participate in the Screening?: Yes Do you worry about having a steady place to live?: no Problems where you live: no known problems In the past 12 months, have you had to go without electric, gas, oil or water in your home?: no Have you or anyone in your house had to go without enough food to eat?: no Has lack of transportation kept you from medical appointments or from doing things needed for daily living?: no Has anyone in your life made you feel unsafe or unsupported?: no How hard is it for you to pay for the very basics like food, housing, medical care, and heating? Would you say it is:: Not hard at all Do you want help finding or keeping work or a job?: I do not need or want help If for any reason you need help with day-to-day activities such as bathing, preparing meals, shopping, managing finances, etc., do you get the help you need?: I don?t need any help How often do you feel lonely or isolated from those around you?: Never Do you speak a language other than Fijian at home?: No Does the patient want assistance with any of the above?: No
[2024-07-12 16:12] VITALS: BP 126/52; PULSE 115; RESP 18; TEMP 36.8; O2SAT 94
--- NOTE | 2024-07-12 16:36 | PT.INTREAT ---
PT Notes Visit Reasons: SBO Physical Therapy Inpatient Treatment Note Date: 07/12/2024 Precautions: Fall. Standard. Activity as tolerated, pre-medicate for pain. Subjective: Pt reports she is going to have a shower today In afternoon pt declined to participate stating she was too wiped out from her shower today Objective: General Observation:Pt supine in bed agreeable to participate in short walk prior to shower with DOCUMENT MANAGEMENT SPECIALIST Mental Status: Alert and oriented as to person, place, time, and purpose. Able to pay attention, focus, and respond appropriately. Pain: 6?7/10 pain in abdominal area pre session Vital Signs: Closely monitored by nursing staff Bed Mobility/Transfers: Minimal cueing provided for use of B hands as needed for support, movement sequence, AD management, and posture to reduce fall risk and minimize pain report Sit to supine with HOB at 30 degrees standby assist ( pt asks for assistance but can perform without assist) Sit to stand stand by assist without AD Stand to sit stand by assist without AD Bed to chair stand by assist without AD ambulates 25 feet with patient pushing IV pole SBA into bathroom. Pt then ambulated with FWW 30 feet prior to need for sit rest d/t abdominal pain. VITALS: Closely monitored by nursing staff STAIRS: Not done. Patient fatigued and in discomfort after the walk ASSESSMENT: Patient agreeable to participate with purposeful functional mobility tasks prior to shower. Pt's functional ability is dependent on level of pain. She again declined to perform the stairs when approached for second session . Will attempt next session to start with stairs via transporting patient to the stairs in a wheelchair to conserve energy and reduce pain in abdomen PLAN OF CARE/TREATMENT PLAN: 1-2x/day, 7 days/ week x 1 week. Plan of care has been reviewed with the MANUFACTURED BUILDINGS SUPERVISOR providing the service under Physical therapy direction. Initiate physical therapy intervention for strengthening, bed mobility, transfers, gait, stairs, balance training, use of assistive device. DISCHARGE RECOMMENDATIONS: Home with PT TREATMENT CODE/TIME: 91664 x 14 minutes/[id number]
[2024-07-12] MEDS: Levalbuterol HFA 15 GM INH 2 PUFF IH (21:22)
[2024-07-12] MEDS: Budesonide/Formoterol 80/4.5 6.9 GM 60 PUFF INH IH (21:22)
[2024-07-12 23:53] VITALS: BP 149/66; PULSE 125; RESP 18; TEMP 37.6; O2SAT 95
[2024-07-13] MEDS: HYDROmorphone 2 MG/ML SYR 0.5 MG IVP ×2 (00:23→04:31)
[2024-07-13] MEDS: Insulin Aspart 300 UNITS/3 ML PEN SC ×4 (00:39→18:20)
[2024-07-13] MEDS: Levalbuterol HFA 15 GM INH 2 PUFF IH ×2 (02:31→15:24)
[2024-07-13] MEDS: HYDROmorphone 2 MG TAB 1 MG PO (03:42)
[2024-07-13] MEDS: Ondansetron 4 MG/2 ML VIAL IVP (06:03)
[2024-07-13 07:51] LABS: ALT 14 U/L (14-59); AST 14 U/L (15-37); Albumin 2.2 g/dL (3.4-5.0); Alkaline Phosphatase 61 U/L (46-116); Anion Gap 5.2 mmol/L (3-11); BUN 16 mg/dL (7-18); Bilirubin, Total 0.24 mg/dL (0.2-1.0); CO2 28.8 mmol/L (21.0-32.0); CREATININE 0.7 mg/dL (0.55-1.02); Calcium 8.5 mg/dL (8.5-10.1); Chloride 103 mmol/L (98-107); Estimated GFR 91.83 (mL/min/1.73m2); Glucose 204 mg/dL (74-106); Potassium 4.1 mmol/L (3.5-5.1); Sodium 137 mmol/L (136-145); Total Protein 6.6 g/dL (6.4-8.2)
[2024-07-13] MEDS: Isosorbide Mononitrate 60 MG TABCR PO (07:57)
[2024-07-13] MEDS: Famotidine 20 MG TAB 40 MG PO (07:57)
[2024-07-13] MEDS: metFORMIN 500 MG TAB 1000 MG PO ×2 (07:58→18:20)
[2024-07-13] MEDS: amLODIPine 10 MG TAB PO (07:58)
[2024-07-13] MEDS: Losartan 50 MG TAB 100 MG PO (07:58)
[2024-07-13] MEDS: Acetaminophen 500 MG TAB 1000 MG PO (07:58)
[2024-07-13] MEDS: Gabapentin 300 MG CAP PO ×2 (07:58→20:37)
[2024-07-13] MEDS: Enoxaparin 40 MG/0.4 ML SYR SC (07:59)
[2024-07-13] MEDS: Normal Saline Flush 10 ML SYR IVP (07:59)
--- NOTE | 2024-07-13 08:49 | DI.CT_ITS ---
Exam(s) CT ABDOMEN PELVIS WO EXAM: CT ABDOMEN PELVIS WO CLINICAL HISTORY: See where enteric contrast remains vs drained.. TECHNIQUE: Imaging Protocol: Axial computed tomography images with coronal and sagittal reformatted images were created and reviewed. COMPARISON: CT CT ABDOMEN PELVIS WO from 07/11/2024 FINDINGS: Evaluation of the abdominal pelvic organs is limited due to lack of IV contrast. ABDOMEN: Lung Bases: Calcified granuloma are seen in the right lower lobe. No focal consolidating infiltrates are seen in the lung bases. Coronary artery calcifications are present. Liver: There is fatty infiltration of the liver. No measurable mass. Gallbladder and biliary tract: Status post cholecystectomy. No biliary ductal dilatation. Pancreas: Normal density, no abnormal calcifications or inflammatory process. Spleen: Normal. Kidneys: Normal size, contour and axis.No radiodense stones or obstructive uropathy. No masses seen. Adrenal glands: No mass is seen. Lymph nodes: Within normal limits. Abdominal Aorta: Abdominal portion non-dilated. Atherosclerotic calcification is present. PELVIS: Bladder:Symmetric distention, no gross wall thickening. Bowel: No evidence of obstruction. There is an anastomosis in the small bowel in the pelvis. There is a loop of bowel in the central anterior abdomen just deep to the umbilicus which shows mild wall t hickening. This may be due to the collapsed nature of the bowel. On the examination 2 days prior no abnormality is seen in this region. A localized inflammatory process cannot be excluded. Peritoneal cavity: There are 2 fluid collections seen in the anterior abdomen. There is a collection underlying the left anterior abdominal wall with air-fluid level measuring approximately 8.4 x 3.5 c m (series 2, image 253). Previously this contained I genetic contrast. No contrast is seen within t his collection at this time. There may be communication with an adjacent small bowel loop inferiorly . There is also a fluid collection in the upper pelvis and lower abdominal wall just deep to the mid line surgical scar which measures 4.9 transverse by 3.8 AP by 5.0 cm craniocaudad. (Series 2, image 310). There is a drainage catheter which appears to lie just superior to the 2nd fluid collection. No contrast seen within this collection either. There remains a tiny amount of free air in the abdom en. Reproductive organs: The uterus is absent. Bones: Within normal limits. There are postsurgical changes with posterior spinal surgery in the lumb osacral spine. There are nerve stimulator device is posteriorly. Soft Tissues: There is a drainage catheter is seen entering the right abdomen. There is a midline roberts rgical scar. There also surgical clips seen in the left anterior abdominal wall. IMPRESSION: 1. There are 2 fluid collections again seen in the abdomen as described above. They are similar in s ize compared to the prior examination. There is no contrast seen in either collection at this time. 2. Postsurgical changes with anastomoses seen in the small bowel. No evidence of obstruction. 3. There is again seen a drainage catheter entering into the right abdomen. RADIATION DOSE DELIVERED: 563.67mGy.cm Total DLP DATA REPOSITORY: All CT scans at this facility are submitted to the National Radiology Data Registry (NRDR) Dose Index Registry (DIR) with the [employer] (A[employer]). RADIATION OPTIMIZATION: All CT scans at this facility use at least one of these dose optimization te chniques: automated exposure control; mA and/or kV adjustment per patient size (includes targeted exa ms where dose is matched to clinical indication); or iterative reconstruction.
--- NOTE | 2024-07-13 09:24 | PGE_ITS ---
Date of Service Date of service: 07/13/24 Time of Service: 09:24 Assessment and Plan Assessment and plan (1) Enterocutaneous fistula: Status: Chronic Assessment and plan: 73-year-old woman postop 2 weeks from an exploratory laparotomy and lysis of adhesions. She has developed an enterocutaneous fistula. The origin of it is unclear. It could be from a serosal tear that developed into an enterotomy, it could be from her small bowel anastomosis, and it could be colon injury the nest of small bowel that was resected. In the problem area was directly adherent to the colon and a serosal tear or thermal injury could easily have been at play there. Her drain output is pretty low?volume and was less than 250 cc in the last 24 hours despite her eating. This is very promising. I re-did a CT scan this morning and all of the enteric/oral contrast that was in the collection has since drained out which is an excellent radiographic sign of the adequacy of the surgical drain for that 1 particular collection in which all the oral contrast had pooled. She continues to have a stable sinus tachycardia that occasionally goes under 100, but has been persistently in the 1?teens for a while now. She has been afebrile and has not had a leukocytosis but continues to have no drainage source control of the abscess beneath her midline incision. My impression is that this is not controlled because it looks completely unchanged from the last CT scan. I am suspicious there is probably some continuity of this collection with the other location however to me it does not look like it is draining and I think there would be an advantage to getting source control of this. Above all else, this is the only location clinically that she complains of discomfort. It is with absolute certainty that the area of discomfort that she complains about and that is tender on exam, is directly overlying this abscess cavity which is quite superficial and does not appear to have any bowel above it. She is mildly anemic with an hemoglobin of 8.7 last time we checked. She is tolerating Lovenox and her platelet count is stable so in the absence of chest pain or shortness of breath I have very little concern for anything cardiac or pulmonary. Nonetheless, I am going to get the hospitalist to consult on the heart rate in case she feels like her beta-rbaxton should be a little bit higher or something else. I considered the possible need for transfusion of 1 unit of blood but in the setting of having other reasons for the tachycardia, I think we should hold off on any transfusion until at least tomorrow after the drain is placed and see how that affects things clinically. I do wonder if her heart rate is going to settle down once we get this abscess drained. I consulted IR at [facility] [place] this morning they agreed to put a drain in it probably tomorrow morning. Overall plan: Continue enteral feeding Hopeful discontinue TPN in next 48 hours IR drain of anterior, lower midline intraperitoneal abscess (tomorrow) Stop narcotics Continue DVT prophylaxis Routine hospitalist consultation (I reached out to them directly) Subjective Subjective Interval history since last seen: Dave continues with no clinical changes and no overnight events. She does get nauseated when she gets the Dilaudid. We talked about stopping it this morning and she is okay with that. She has no new symptoms. The pain and discomfort remains in the same location at the bottom of her abdomen in the midline. She continues to have bowel movements and had a couple in the last 24 hours. She is tolerating oral intake and has been eating some porridge and eggs. Her drain output does not seem to have picked up, in fact, it seems to be significantly less. At the bedside she continues to be grateful for everything that is being done for her and is really cooperative and pleasant. She thinks her pain is slowly getting better and better with her biggest complaint being continued tiredness and fatigue. Good urine output. Exam Narrative Exam Narrative: Gen: Non-toxic, though she states she has discomfort, she appears to be comfortable and quite interactive. Neuro: Alert and oriented x3 Psych: Good mood and affect. Good insight and understanding into condition. Chest: Non-labored breathing, no wheezing, no visible shortness of breath. Heart: Regular rhythm, her rate remains tachycardic with palpable radial pulse at 114 at the bedside. Abdomen: Soft, not distended, really no tenderness anywhere. The lower midline beneath her incision has tenderness to deep palpation but no guarding or rebound. Certainly no peritonitis. Incision continues to look perfect. Centereach intact. No erythema. Surgical drain: Liquid output remains pretty thin and is brown but does not appear to be purulent. Not much bile, if any. Objective Last Vital Signs Temp 99.7 F H 07/12/24 23:53 Pulse 125 H 07/12/24 23:53 Resp 18 07/12/24 23:53 BP 149/66 H 07/12/24 23:53 Pulse Ox 95 07/12/24 23:53 Laboratory Results - last 24 hr 07/13/24 06:30 Sodium 137 Potassium 4.1 Chloride 103 Carbon Dioxide 28.8 Anion Gap 5.2 BUN 16 Creatinine 0.7 Est GFR (CKD-EPI 2020) 91.83 Glucose 204 H Calcium 8.5 Total Bilirubin 0.24 AST 14 L ALT 14 Alkaline Phosphatase 61 Total Protein 6.6 Albumin 2.2 L Time Spent with Patient Time Spent with Patient: >50 minutes Time was spent: preparing to see the patient(eg.review tests), obtaining and/or reviewing separately otained hiistory, ordering medications,tests, procedures, referring, communicating with other health landcare facilitator, indepentently interpreting results, counseling the patient, care coordination and other
[2024-07-13 09:48] LABS: Prealbumin 17 mg/dL (20-40)
--- NOTE | 2024-07-13 09:54 | CMPROGNOTE_ITS ---
Date of service: 07/13/24 Time of Service: 09:54 Care Management Progress Note Progress Note Text Progress Note Text: Bubba was sitting up in bed when CM met with her. She admitted to being discouraged by the length of her hospital stay. She stated she misses her h usband and her home and she just wants to be with her family. CM discussed the plan for the likely down and back trip to [facility] tomorrow for an abscess drainage procedure that Dr. Colon has been working on. Bubba seemed very surprised and stated that she did not know anything about it. Bubba also shared that all of her pain medication has been discontinued except for Ibuprofen and Tylenol. She is concerned that she will be uncomfortable during transport tomorrow with no pain or anxiety medication. CM messaged Surgical [facility] to alert them of Bubba's concerns. Discharge Potential Discharge Needs: PCP F/U Appt and Surgical F/U Appt Anticipated Barriers to Discharge: Medical Status Patient/Family Education Needs: Review discharge instructions, discuss Ask Me Three Transportation: Private vehicle Plan: Anticipate Kae will be discharged home when medically stable, with new RN and PT. She will follow up with her community providers and plan of care and transport with her . CM will follow and continue to assess for discharge needs. Social Determinants of Health Screening Social Determinants of Health last assessed: 07/13/24 Will the Patient Participate in the Screening?: Yes Do you worry about having a steady place to live?: no Problems where you live: no known problems In the past 12 months, have you had to go without electric, gas, oil or water in your home?: no Have you or anyone in your house had to go without enough food to eat?: no Has lack of transportation kept you from medical appointments or from doing things needed for daily living?: no Has anyone in your life made you feel unsafe or unsupported?: no How hard is it for you to pay for the very basics like food, housing, medical care, and heating? Would you say it is:: Not hard at all Do you want help finding or keeping work or a job?: I do not need or want help If for any reason you need help with day-to-day activities such as bathing, preparing meals, shopping, managing finances, etc., do you get the help you need?: I don?t need any help How often do you feel lonely or isolated from those around you?: Never Do you speak a language other than Burkinan at home?: No Does the patient want assistance with any of the above?: No
[2024-07-13 11:57] VITALS: BP 130/61; PULSE 111; RESP 17; TEMP 36.6; O2SAT 94
[2024-07-13] MEDS: Ibuprofen 400 MG TAB PO ×2 (12:06→20:37)
--- NOTE | 2024-07-13 12:51 | PT.INTREAT ---
PT Notes Visit Reasons: [facility]BO Physical Therapy Inpatient Treatment Note Date: 07/13/2024 Precautions: Fall. Standard. Activity as tolerated, pre-medicate for pain. TPN Access, Abdominal drain right side Subjective: Pt reports she is having more pain today but is agreeable to do things in her room this morning During afternoon pt politely declined to participate stating she is not feeling well. Nurse notified. Objective: General Observation:Pt supine in bed agreeable to participate in short walk prior to shower with [employer]OR Mental Status: Alert and oriented as to person, place, time, and purpose. Able to pay attention, focus, and respond appropriately. Pain: 6?7/10 pain in abdominal area pre session Vital Signs: Closely monitored by nursing staff Bed Mobility/Transfers: Minimal cueing provided for use of B hands as needed for support, movement sequence, AD management, and posture to reduce fall risk and minimize pain report Sit to supine with HOB at 30 degrees standby assist Sit to stand stand by assist without AD Stand to sit stand by assist without AD Bed to chair stand by assist without AD ambulates 25 feet with patient pushing IV pole SBA into bathroom. then able to ambule within room ~30 feet with support of QV pole. VITALS: Closely monitored by nursing staff STAIRS: Not done. ASSESSMENT: Patient agreeable to participate with purposeful functional mobility taskswithin her room. Pt's functional ability is dependent on level of pain. Will continue to attempt next session by starting with stairs via transporting patient to the stairs in a wheelchair to conserve energy and reduce pain in abdomen. PLAN OF CARE/TREATMENT PLAN: 1-2x/day, 7 days/ week x 1 week. Plan of care has been reviewed with the ELECTROCARDIOGRAPHIC TECHNICIAN providing the service under Physical therapy direction. Initiate physical therapy intervention for strengthening, bed mobility, transfers, gait, stairs, balance training, use of assistive device. DISCHARGE RECOMMENDATIONS: Home with PT TREATMENT CODE/TIME: 17878 x 16 minutes/[id number]
[2024-07-13 15:50] VITALS: BP 141/57; PULSE 113; RESP 14; TEMP 36.8; O2SAT 98
--- NOTE | 2024-07-13 16:05 | MCONE_ITS ---
Date of service: 07/13/24 Time of Service: 16:05 Assessment and Plan Assessment and plan (1) Chronic abdominal pain: Status: Acute Assessment and plan: defer to surgery (2) Tachycardia: Status: Acute Assessment and plan: In regards to her tachycardia my belief is that she does run somewhat high on chronic condition. Some of the most common causes of tachycardia such as too much caffeine, drug withdrawal, medication side effects, anemia, infection, hyperthyroidism, anemia, and dysrhythmia do not appear to be serious enough to be the causative agent. She does have some anemia but I would not think this would be causing her tachycardia as it is fairly stable. In completeness I will do a TSH as well as a UA as these are essentially benign exams and can cause tachycardia. I have reviewed her old data points for her heart rate and as mentioned above she does have periods where she is fairly high normal. History of Present Illness History of Present Illness Chief Complaint: tachycardia Narrative: This is a 73-year-old female who we saw in consultation at the request of Dr Langford for tachycardia of over a weeks duration. Per my discussion with Mrs. Forrest she states that she always has somewhat elevated heart rate and in reviewing data points that we have does appear that she does run usually in the low to mid 90s. Further review of the chart shows that she was here in I believe April of last year and had a period of syncope as well as third- degree heart block. This apparently resolved on its own and she did not get any intervention. At that time her record indicated that she had a cardiac cath in 2019 but she denies this. Patient states that she has been told that she has a 30% block in her cardiac arteries but could not tell me how she came up with this number. Regardless, the patient denies significant increase in her caffeine use as she drinks approximately 2 cups of coffee a day. Patient states she has never had problems with her thyroid. Patient states that she denies any signs or symptoms of a urinary tract infection. Patient states that she does have palpitations that time but they are not worrisome for her. Patient denies any alcohol use or illicit drug use. In reviewing her med list she does have albuterol as a as needed med but not sure how often she is taking this. Patient is also on albuterol as needed as well as Xopenex. 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 (Acute) Arthritis (Acute) Back pain (Acute) GERD (gastroesophageal reflux disease) (Chronic) Obesity (Chronic) Claustrophobia (Acute) Osteoporosis (Chronic) Headache (Acute) Asthma with COPD (chronic obstructive pulmonary disease) (Acute) Vitamin D deficiency (Acute) Corns and callosities (Acute) Cubital tunnel syndrome on left (Acute) Cubital tunnel syndrome on right (Acute) Trigger finger, left middle finger (Acute) Trigger finger, right middle finger (Acute) Left carpal tunnel syndrome (Acute) Right carpal tunnel syndrome (Acute) Medical History (Updated 07/13/24 @ 16:14 by Phillip Claudio MD) Hypokalemia Abdominal discomfort Screening for colon cancer Diabetes mellitus CAD (coronary artery disease) Parkinsons disease 02/03/23 pt has a DBS implanted for this RH Hypertension Hyperlipidemia Stenosis colon Osteoarthritis of left knee mild Small bowel obstruction Diverticulitis PTSD (post-traumatic stress disorder) Dermatitis Anxiety Petechial rash upper and lower extremities, chronic. Started in 2018. COPD (chronic obstructive pulmonary disease) Surgical History (Updated 07/09/24 @ 14:11 by Stacy Pires DO) Status post small bowel resection S/P exploratory laparotomy small bowel resection History of colonoscopy (~02/2024) History of colostomy reversal Social History Smoking/Tobacco Use Status: Former Tobacco Use Quit Date: 06/15/11 Smoking risk assessment performed?: Yes Alcohol Intake: never Drug use: Never Substance use type: does not use Housing: house Do you feel safe at home: Yes Do you feel safe in your relationship?: Yes Exam Narrative Exam Narrative: Head eyes ears nose and throat normocephalic atraumatic mucous membranes moist oropharynx clear extract motions are intact Neck: No lymphadenopathy no JVD no thyroid megaly Lungs: Clear to auscultation bilaterally with good air exchange Cardiovascular: Mild tachycardia but no murmur rubs or gallops Abdomen: Ventral scar clean dry and intact with eric Extremities: No sinus clubbing or edema Neurologic: Cranial nerves II through XII intact as tested reflexes in upper extremity normal as tested General: 73-year-old female appears her stated age no apparent distress Results Last Vital Signs Temp 36.8 C 07/13/24 15:50 Pulse 113 H 07/13/24 15:50 Resp 14 07/13/24 15:50 BP 141/57 H 07/13/24 15:50 Pulse Ox 98 07/13/24 15:50 Labs 07/12/24 06:40 07/13/24 06:30 Labs: Laboratory Results - last 24 hr 07/12/24 07/13/24 06:40 06:30 Sodium 137 Potassium 4.1 Chloride 103 Carbon Dioxide 28.8 Anion Gap 5.2 BUN 16 Creatinine 0.7 Est GFR (CKD-EPI 2020) 91.83 Glucose 204 H Calcium 8.5 Total Bilirubin 0.24 AST 14 L ALT 14 Alkaline Phosphatase 61 Total Protein 6.6 Albumin 2.2 L Prealbumin 17 L
[2024-07-13 18:48] VITALS: BP 143/54; PULSE 118; RESP 14; TEMP 36.7; O2SAT 96
[2024-07-13] MEDS: Acetaminophen 325 MG TAB 650 MG PO (20:37)
[2024-07-13] MEDS: traZODone 100 MG TAB PO (20:40)
[2024-07-13 20:46] VITALS: BP 142/63; PULSE 116; RESP 20; TEMP 36.8; O2SAT 95
[2024-07-14 01:02] VITALS: BP 122/50; PULSE 105; RESP 18; TEMP 36.7; O2SAT 95
[2024-07-14] MEDS: Insulin Aspart 300 UNITS/3 ML PEN SC ×3 (01:05→12:38)
[2024-07-14 04:35] LABS: Bilirubin Negative (Negative); Blood Negative (Negative); Clarity Sl Cloudy (Clear); Glucose Negative (Negative); Ketones Negative (Negative); Leukocyte Esterase Negative (Negative); Nitrite Negative (Negative); Urobilinogen 0.2 mg/dL (Up to 0.2)
--- NOTE | 2024-07-14 06:47 | W.PC.ACHO ---
Registration Status: Primary Language: Preferred Language: Medical / Surgical History (Last Updated 07/10/24 @ 12:47 by Stacy Pires DO) Hypokalemia Abdominal discomfort Screening for colon cancer Diabetes mellitus CAD (coronary artery disease) Parkinsons disease Hypertension Hyperlipidemia Stenosis colon Osteoarthritis of left knee Small bowel obstruction Diverticulitis PTSD (post-traumatic stress disorder) Dermatitis Anxiety Petechial rash COPD (chronic obstructive pulmonary disease) (Last Updated 07/09/24 @ 14:11 by Stacy Pires DO) Status post small bowel resection S/P exploratory laparotomy History of colonoscopy (~02/2024) History of colostomy reversal Most Recent Vital Signs Temperature 36.7 C 07/14/24 01:02 Temperature Source Temporal Artery Scan 07/14/24 01:02 Pulse 105 H 07/14/24 01:02 Pulse Rhythm Regular 06/29/24 06:24 Pulse 97 H 06/29/24 17:01 Respiratory Rate 18 07/14/24 01:02 Respiratory Effort Normal 06/29/24 17:45 Respiratory Depth Normal 06/29/24 17:45 Respiratory Pattern Normal 06/29/24 17:45 Blood Pressure 122/50 L 07/14/24 01:02 Blood Pressure Mean 71 06/29/24 17:01 Pulse Oximetry 95 07/14/24 01:02 Respiratory End-tidal CO2 33 06/29/24 17:01 Oxygen Delivery Method Room Air 07/14/24 01:02 Oxygen Flow Rate 0 07/14/24 01:02 Pain Level 8 07/13/24 20:37 Comment RN Notified 07/10/24 03:30 Allergies alprazolam (From Xanax) Allergy (Severe, Verified 06/29/24 06:43) hives codeine Allergy (Severe, Verified 06/29/24 06:43) throat swells shut meperidine (From Demerol) Allergy (Severe, Verified 06/29/24 06:43) Hives pt. denies Penicillins Allergy (Severe, Verified 06/29/24 06:43) throat swells shut butorphanol (From Stadol) Allergy (Intermediate, Verified 06/29/24 06:43) Anaphylaxis Iodinated Contrast Media Allergy (Intermediate, Verified 06/29/24 06:43) rash, nausea, vomiting ketorolac (From Toradol) Adverse Reaction (Intermediate, Verified 06/29/24 06:43) Nausea IV Contrast Allergy (Severe, Uncoded 06/29/24 06:43) Skin Rash Active Medications Generic Name Dose Route Start Last Admin Trade Name Freq PRN Reason Stop Dose Admin Acetaminophen 650 mg 07/13/24 09:26 07/13/24 20:37 Acetaminophen 325 Mg Tab PO 650 mg Q6H PRN PRN Administration Amlodipine Besylate 10 mg 07/10/24 08:30 07/13/24 07:58 Amlodipine 10 Mg Tab PO 10 mg DAILY [facility] Administration Budesonide/Formoterol Fumarate 2 puff 06/30/24 08:30 07/14/24 00:29 Budesonide/Formoterol 80/4.5 6.9 Gm 60 Puff Inh IH Not Given BID [facility] Enoxaparin Sodium 40 mg 07/06/24 08:30 07/13/24 07:59 Enoxaparin 40 Mg/0.4 Ml Syr SC 40 mg DAILY [facility] Administration Famotidine 40 mg 07/13/24 08:30 07/13/24 07:57 Famotidine 20 Mg Tab PO 40 mg DAILY [facility] Administration Gabapentin 300 mg 07/10/24 14:00 07/13/24 20:37 Gabapentin 300 Mg Cap PO 300 mg TID [facility] Administration Fat Emulsion 50 gm in 250 mls @ 31.25 mls/hr 07/05/24 08:30 07/14/24 01:12 Intralipid 20% IVPB Infused DAILY [facility] Infusion Sodium/Potass/Mag/Sandeep/Chlor/ 1,020 mls @ 85.917 mls/hr 07/13/24 17:00 07/14/24 04:46 Acetate 20 ml/ Amino Acids/ IV Infused Dextrose .BY DURATION [facility] Infusion Sodium/Potass/Mag/Sandeep/Chlor/ 1,031 mls @ 85 mls/hr 07/13/24 17:00 07/14/24 04:35 Acetate 20 ml/ Multivitamins IV 85 mls/hr 10 ml/ Zinc/Copper/Manganese/ .BY DURATION [facility] Administration Selenium 1 ml/ Amino Acids/ Dextrose Ibuprofen 400 mg 07/13/24 09:27 07/13/24 20:37 Ibuprofen 400 Mg Tab PO 400 mg Q6H PRN PRN Administration Insulin Aspart 0 units 07/04/24 18:00 07/14/24 05:53 Insulin Aspart 300 Units/3 Ml Pen SC 9 units Q6H [facility] Administration Protocol Isosorbide Mononitrate 60 mg 07/10/24 08:30 07/13/24 07:57 Isosorbide Mononitrate 60 Mg Tabcr PO 60 mg DAILY [facility] Administration Levalbuterol 2 puff 06/29/24 20:00 07/14/24 02:33 Levalbuterol Hfa 15 Gm Inh IH Not Given Q6H [facility] Losartan Potassium 100 mg 07/10/24 08:30 07/13/24 07:58 Losartan 50 Mg Tab PO 100 mg DAILY [facility] Administration Metformin HCl 1,000 mg 07/09/24 17:00 07/13/24 18:20 Metformin 500 Mg Tab PO 1,000 mg BID@0800,1700 [facility] Administration Metoprolol Succinate 50 mg 06/30/24 08:30 07/03/24 07:42 Metoprolol Cr 50 Mg Tabcr PO 50 mg DAILY [facility] Administration Ondansetron HCl 4 mg 06/29/24 13:04 07/13/24 06:03 Ondansetron 4 Mg/2 Ml Vial IVP 4 mg Q4H PRN PRN Administration Sodium Chloride 0 ml 06/30/24 06:56 07/13/24 07:59 Normal Saline Flush 10 Ml Syr IVP 10 ml PRN PRN Administration Sodium Chloride 0 ml 07/02/24 12:00 07/12/24 09:26 Normal Saline Flush 10 Ml Syr IVP 10 ml PRN PRN Administration Sodium Chloride 10 ml 07/06/24 08:27 07/07/24 08:52 Normal Saline 10 Ml Vial IJ 10 ml DIRECTED PRN Administration Trazodone HCl 100 mg 07/09/24 13:59 07/13/24 20:40 Trazodone 100 Mg Tab PO 100 mg HS PRN PRN Administration IV IV Catheter Type [Right Neck] Saline Lock IV Catheter Type [Right PICC] Port-a-cath (double) IV Catheter Type [Right Saline Lock Midline] IV Catheter Type [Left Midline Saline Lock ] IV Catheter Gauge [Left 20 Midline] Diet Orders Category Date Time Status npo [Nothing Per Oral] [DIET] Nutrition 07/14/24 Breakfast Active Diagnostics 07/14/24 07/14/24 07/14/24 Range/Units 07:15 05:35 04:00 WBC Pending RBC Pending Hgb Pending Hct Pending MCV Pending MCH Pending MCHC Pending RDW Pending Plt Count Pending MPV Pending Immature Gran % Pending Neutrophils % Pending Lymphocytes % Pending Monocytes % Pending Eosinophils % Pending Basophils % Pending Absolute Neutrophils Pending Absolute Lymphocytes Pending Absolute Monocytes Pending Absolute Eosinophils Pending Absolute Basophils Pending Sodium Pending (136-145) mmol/L Potassium Pending (3.5-5.1) mmol/L Chloride Pending (98-107) mmol/L Carbon Dioxide Pending (21.0-32.0) mmol/L Anion Gap Pending (3-11) mmol/L BUN Pending (7-18) mg/dL Creatinine Pending (0.55-1.02) mg/dL Est GFR (CKD-EPI 2020) Pending (mL/min/1.73m2) Glucose Pending (74-106) mg/dL Calcium Pending (8.5-10.1) mg/dL Total Bilirubin Pending (0.2-1.0) mg/dL AST Pending (15-37) U/L ALT Pending (14-59) U/L Alkaline Phosphatase Pending (46-116) U/L Total Protein Pending (6.4-8.2) g/dL Albumin Pending (3.4-5.0) g/dL Prealbumin (20-40) mg/dL TSH Pending Urine Color Yellow (Yellow) Urine Clarity Sl Cloudy (Clear) Urine pH 6.0 (5-8) Ur Specific [place] 1.010 (1.005-1.025) Urine Protein Negative (Neg-Trace) mg/dL Urine Ketones Negative (Negative) mg/dL Urine Blood Negative (Negative) Urine Nitrite Negative (Negative) Urine Bilirubin Negative (Negative) Urine Urobilinogen 0.2 (Up to 0.2) mg/dL Ur Leukocyte Esterase Negative (Negative) Urine Glucose Negative (Negative) mg/dL 07/13/24 07/12/24 Range/Units 06:30 06:40 WBC RBC Hgb Hct MCV MCH MCHC RDW Plt Count MPV Immature Gran % Neutrophils % Lymphocytes % Monocytes % Eosinophils % Basophils % Absolute Neutrophils Absolute Lymphocytes Absolute Monocytes Absolute Eosinophils Absolute Basophils Sodium 137 (136-145) mmol/L Potassium 4.1 (3.5-5.1) mmol/L Chloride 103 (98-107) mmol/L Carbon Dioxide 28.8 (21.0-32.0) mmol/L Anion Gap 5.2 (3-11) mmol/L BUN 16 (7-18) mg/dL Creatinine 0.7 (0.55-1.02) mg/dL Est GFR (CKD-EPI 2020) 91.83 (mL/min/1.73m2) Glucose 204 H (74-106) mg/dL Calcium 8.5 (8.5-10.1) mg/dL Total Bilirubin 0.24 (0.2-1.0) mg/dL AST 14 L (15-37) U/L ALT 14 (14-59) U/L Alkaline Phosphatase 61 (46-116) U/L Total Protein 6.6 (6.4-8.2) g/dL Albumin 2.2 L (3.4-5.0) g/dL Prealbumin 17 L (20-40) mg/dL TSH Urine Color (Yellow) Urine Clarity (Clear) Urine pH (5-8) Ur Specific [place] (1.005-1.025) Urine Protein (Neg-Trace) mg/dL Urine Ketones (Negative) mg/dL Urine Blood (Negative) Urine Nitrite (Negative) Urine Bilirubin (Negative) Urine Urobilinogen (Up to 0.2) mg/dL Ur Leukocyte Esterase (Negative) Urine Glucose (Negative) mg/dL [id number] Documentation Fingerstick Glucose Start: 06/29/24 07:22 Freq: Status: Complete Protocol: Activity Type Activity Date Activity User E-sign Co-sign Detail Recorded Client Recorded Date Recorded By Document 06/29/24 13:29 BKG DAEMON(10) [id number] 06/29/24 13:30 BKG DAEMON(10) Fingerstick Glucose Start: 06/29/24 20:44 Freq: .ACHS Status: Complete Protocol: Activity Type Activity Date Activity User E-sign Co-sign Detail Recorded Client Recorded Date Recorded By Document 07/03/24 07:57 BKG DAEMON(10) [id number] 07/03/24 07:59 BKG DAEMON(10) Fingerstick Glucose Start: 07/03/24 09:12 Freq: .Q6H Status: Complete Protocol: Activity Type Activity Date Activity User E-sign Co-sign Detail Recorded Client Recorded Date Recorded By Document 07/05/24 09:00 NFARZANEH [id number] 07/05/24 20:24 RAKESH Fingerstick Glucose Start: 07/04/24 08:25 Freq: .Q6H Status: Active Protocol: Activity Type Activity Date Activity User E-sign Co-sign Detail Recorded Client Recorded Date Recorded By Document 07/14/24 05:51 NPASHA [id number] 07/14/24 05:52 NPASHA Intake and Output - 24 Hour Total 05/18/24 13:21 thru 07/14/24 05:52 Intake Total 16879.886 Output Total 12194 Balance 24728.886 Weight 74.3 kg Intake: [place] 27652.886 Oral 2700 Injectate 460 Right Lower Anterior Abdomen 460 Output: Gastric Drainage 8520 Right Nare 8520 Drainage 2245 Right Lower Anterior Abdomen 2245 Urine 47312 Emesis 1000 Estimated Blood Loss 100 Other: Urine Color Yellow Urine Appearance Clear Urine Odor Normal Comment mixed with TP Stool Size Moderate Stool Characteristics Soft Emesis Description None Urinary Catheter Urinary Catheter Date of 06/29/24 Insertion [Urethral (Lay)] Time of insertion [Urethral ( 08:20 Lay)] Falls Risk Assessment History of Falls No History 06/29/24 17:45 Contributing Factors No Factors 06/29/24 17:45 Ambulatory Aids Independent 06/29/24 17:45 Tubes/Lines W/no contributing factors 06/29/24 17:45 Gait Evaluation W/no contributing factors 06/29/24 17:45 Cognition No cognitive impairment 06/29/24 17:45 Fall Total Score 20 06/29/24 17:45 Level of Risk Standard/Low Risk 06/29/24 17:45 Problems (Last Updated 07/10/24 @ 12:47 by Stacy Pires DO) Tachycardia (Acute) Chronic abdominal pain (Acute) Enterocutaneous fistula (Chronic) Hyperglycemia (Acute) Protein calorie malnutrition (Acute) Anemia of chronic disease (Acute) 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 Pires who stated patient can have 2 cups of evonne jose or juice, but no caffeine, and water or ice chips as she pleases. Discussed with primary RN Stacy. Initialized on 07/08/24 17:31 - END OF NOTE 07/07/24 04:59 Nursing Notes by Heidi Becerra Nursing Note: 19:18 TPN infusing without filter tubing. TPN administered time on the MAR 13:26. Will connect filter through the tubing. Initialized on 07/07/24 04:59 - END OF NOTE 07/06/24 01:21 Nursing Notes by Heidi Becerra Addendum entered by Heidi Becerra RN 07/06/24 06:00: Correction: 1020ML-85 MLS/HR(12HR)SITE Amino Acids 5% D5W 1000 ML BAG with ELECTROLYTE SOLUTION INJ 20 ML. Should be D15W Original Note: Nursing Note: 21:00 Notice TPN bag currently infusing through patient's PICC is indicate relabel on the medication label and does not match to the documented TPN on the MAR. Bag currently infusing labeled indicates 1020ML-85 MLS/HR(12HR)SITE Amino Acids 5% D5W 1000 ML BAG with ELECTROLYTE SOLUTION INJ 20 ML compared to [facility] Amino Acids 5%/D15W 1,000 ML @ 85.917 mls/hr IV with Electrolyte Solution, Inj 20 ml with Multivitamin 10 ml, with Trace Elements-Adult 1 ml bag volume:1,031 mls. Also in the Mar showing mutilple orders of TPN with different time starts. Will infused the current TPN and will give the alternate TPN bag to follow the dosing schedule. Initialized on 07/06/24 01:21 - END OF NOTE 07/04/24 08:42 Respiratory by Rojelio Navarro Pt refused inhalers stating that they make her gag. Initialized on 07/04/24 08:42 - END OF NOTE 07/02/24 03:44 Nursing Notes by Ruth Del Cid Nursing Note:PTT 47.9 argotroban not adjusted at this time as PTT within 1.5-3x first PTT. Next PTT in 4 hours as per policy Initialized on 07/02/24 03:44 - END OF NOTE 07/01/24 23:40 Nursing Notes by Ruth Del Cid Nursing Note: PTT 31.1, no increase to agrotraban drip as this is in parameters. Will recheck PTT in 4 hours as per policy Initialized on 07/01/24 23:40 - END OF NOTE 07/01/24 10:35 Nursing Notes by Jessica Mathis In chart for quality/education review Nursing Note: Initialized on 07/01/24 10:35 - END OF NOTE 06/30/24 23:22 Nursing Notes by Ruth Del Cid Nursing Note: Ally at tele pharmacy called regarding argatroban, PTT 36.4 up from 18.6. According to medication protocol this is in parameters w/ a redraw of PTT at 4 hours. Confirmed this w/ tele pharmacy that drip is at the correct therapeutic dose at this time. Initialized on 06/30/24 23:22 - END OF NOTE 06/30/24 07:55 Respiratory by Rojelio Navarro RT attempted to administer morning Xopenex and Symbicort inhalers. Pt reported severe abdomen pain after the first inhalation of her Xopenex inhaler and stated she was unable to continue with remainder at this time. Initialized on 06/30/24 07:55 - END OF NOTE 06/30/24 07:29 Nursing Notes by Tayler Dudley Nursing Note: pt rang a few times for pain medication. I went and answered the light multiple times. I reported back to the nurse Rianna Louise that the pt was in pain and she needed something for it. Pt rang again and was very upset, i simply told the pt she was getting the medication out now and she said she was going to report the nurse in for failure to give medication. I told the pt that she has other pts and has been giving medication and she cant leave a room to give medication until her meds were passed. The pt also say that she was going to report me in as well. I reported back to the nurse every time the pt rang. Initialized on 06/30/24 07:29 - END OF NOTE v v v v v v v v v Sending and/or Receiving Nurses: Please use comment section below to note any information pertinent to the patient hand-off not included above. Information / Comments: Report received from:
[2024-07-14 07:51] VITALS: BP 151/68; PULSE 116; RESP 18; TEMP 36.7; O2SAT 97
[2024-07-14] MEDS: Budesonide/Formoterol 80/4.5 6.9 GM 60 PUFF INH IH ×2 (07:54→21:04)
[2024-07-14] MEDS: Levalbuterol HFA 15 GM INH 2 PUFF IH (07:54)
[2024-07-14 08:26] VITALS: BP 166/72; PULSE 118; RESP 18; TEMP 37.5; O2SAT 97
[2024-07-14] MEDS: Famotidine 20 MG TAB 40 MG PO (08:56)
[2024-07-14] MEDS: Losartan 50 MG TAB 100 MG PO (08:56)
[2024-07-14] MEDS: metFORMIN 500 MG TAB 1000 MG PO ×2 (08:57→18:26)
[2024-07-14] MEDS: Isosorbide Mononitrate 60 MG TABCR PO (08:57)
[2024-07-14] MEDS: amLODIPine 10 MG TAB PO (08:57)
[2024-07-14] MEDS: Enoxaparin 40 MG/0.4 ML SYR SC (08:58)
[2024-07-14] MEDS: Acetaminophen 325 MG TAB 650 MG PO ×2 (09:03→21:16)
[2024-07-14] MEDS: Normal Saline Flush 10 ML SYR IVP ×3 (09:04→13:01)
--- NOTE | 2024-07-14 09:25 | CMPROGNOTE_ITS ---
Date of service: 07/14/24 Time of Service: 09:26 Care Management Progress Note Progress Note Text Progress Note Text: Bubba was lying in bed visiting with her when CM met with her. She was waiting for the ambulance to take her to [facility] [place] for a down and back IR abscess drainage procedure. She stated that she was uncomfortable as her available options for analgesia are limited to Ibuprofen and Tylenol. Bubba reiterated that she is really anxious to go home. She is nervous about the procedure but knows that by having the abscess drained, she will likely heal more quickly and be able to discharge sooner. Discharge Potential Discharge Needs: Surgical F/U Appt Anticipated Barriers to Discharge: Medical Status Patient/Family Education Needs: Review discharge instructions, discuss Ask Me Three Transportation: Private vehicle Plan: Anticipate Kae will be discharged home, when medically stable, with new RN and PT. She will follow up with her community providers and plan of care and transport with her . CM will follow and continue to assess for discharge needs. Social Determinants of Health Screening Social Determinants of Health last assessed: 07/14/24 Will the Patient Participate in the Screening?: Yes Do you worry about having a steady place to live?: no Problems where you live: no known problems In the past 12 months, have you had to go without electric, gas, oil or water in your home?: no Have you or anyone in your house had to go without enough food to eat?: no Has lack of transportation kept you from medical appointments or from doing things needed for daily living?: no Has anyone in your life made you feel unsafe or unsupported?: no How hard is it for you to pay for the very basics like food, housing, medical care, and heating? Would you say it is:: Not hard at all Do you want help finding or keeping work or a job?: I do not need or want help If for any reason you need help with day-to-day activities such as bathing, preparing meals, shopping, managing finances, etc., do you get the help you need?: I don?t need any help How often do you feel lonely or isolated from those around you?: Never Do you speak a language other than Polish at home?: No Does the patient want assistance with any of the above?: No
[2024-07-14 09:30] LABS: Abs Immature Grans 0.11 10^3/uL (0.0-0.06); Absolute Basophil Count 0.05 10^3/uL (0.0-0.2); Absolute Eosinophil Count 0.17 10^3/uL (0.0-0.7); Absolute Lymphocyte Count 1.57 10^3/uL (1.2-3.4); Absolute Monocyte Count 0.71 10^3/uL (0.1-0.8); Absolute Neutrophil Count 5.69 10^3/uL (1.2-6.7); Basophils % 0.6 %; HCT 29.8 % (36.0-46.0); HGB 9.7 g/dL (11.2-15.7); Immature Grans % 1.3 %; Lymphocytes % 18.9 %; MCH 29.9 pg (27.0-33.0); MCHC 32.6 % (32.0-36.0); MCV 92 fL (80-95); Monocytes % 8.6 %; Neutrophils % 68.6 %; RBC 3.24 10^6/uL (3.93-5.22); RDW 14.2 % (11.7-14.6); RDW-SD 47.8 fL
--- NOTE | 2024-07-14 09:38 | PGE_ITS ---
Date of Service Date of service: 07/14/24 Time of Service: 09:38 Assessment and Plan Assessment and plan (1) Enterocutaneous fistula: Status: Chronic Assessment and plan: 73-year-old woman is postop a little over 2 weeks from exploratory laparotomy. She developed an enterocutaneous fistula postoperative day 4. Unclear etiology of the fistula but could be an enterotomy, could be a colotomy, could be a leak from the anastomosis(could be related to thrombotic events from platelet aggregation). She is hemodynamically stable albeit sustained mild tachycardia - hospitalist team is following with us She has an intraperitoneal abscess just beneath her surgical incision that is superficial. She is going down for drainage today. I think this is what is causing the pain and were very hopeful this gets rid of the pain and also changes the tachycardia situation. Her drain output is continuing to decrease substantially. She is tolerating regular food and having bowel movements. At this point the fistula output is well below 150 cc/day over the last 48 hours. This is very promising. Overall plan: IR drainage DVT prophylaxis Regular diet when she gets back Wean off TPN She does need to be out of bed and ambulate. Subjective Subjective Interval history since last seen: No events or issues overnight. No clinical changes. She is going to have her drainage procedure later today. She does keep refusing to work with PT because she says it hurts too much to go walking. She continues to tolerate p.o. and have good bowel function. Drain output is very minimal. Exam Narrative Exam Narrative: Gen: Non-toxic, comfortable and interactive Neuro: Alert and oriented x3 Psych: Good mood and affect. Good insight and understanding into condition. Chest: Non-labored breathing, no wheezing, no visible shortness of breath. Heart: Regular rhythm, remains tachycardic rate Abdomen: Soft, nondistended, incision continues to look perfect. Drain output scant but dark and purulent. Mild tenderness in lower abdomen but without peritoneal signs. Objective Last Vital Signs Temp 99.5 F 07/14/24 08:26 Pulse 118 H 07/14/24 08:26 Resp 18 07/14/24 08:26 BP 166/72 H 07/14/24 08:26 Pulse Ox 97 07/14/24 08:26 Laboratory Results - last 24 hr 07/12/24 07/14/24 06:40 04:00 Prealbumin 17 L Urine Color Yellow Urine Clarity Sl Cloudy Urine pH 6.0 Ur Specific [place] 1.010 Urine Protein Negative Urine Ketones Negative Urine Blood Negative Urine Nitrite Negative Urine Bilirubin Negative Urine Urobilinogen 0.2 Ur Leukocyte Esterase Negative Urine Glucose Negative Time Spent with Patient Time Spent with Patient: 25-34 minutes Time was spent: preparing to see the patient(eg.review tests), obtaining and/or reviewing separately otained hiistory, ordering medications,tests, procedures, referring, communicating with other health physician primary care sports medicine, indepentently interpreting results, counseling the patient, care coordination and other
[2024-07-14 09:43] LABS: Diff Comment Diff Reviewed; RBC Morphology Normal
[2024-07-14 09:49] LABS: ALT 11 U/L (14-59); AST 13 U/L (15-37); Albumin 2.4 g/dL (3.4-5.0); Alkaline Phosphatase 74 U/L (46-116); Anion Gap 6.5 mmol/L (3-11); BUN 16 mg/dL (7-18); Bilirubin, Total 0.23 mg/dL (0.2-1.0); CO2 28.5 mmol/L (21.0-32.0); CREATININE 0.8 mg/dL (0.55-1.02); Calcium 8.9 mg/dL (8.5-10.1); Chloride 103 mmol/L (98-107); Estimated GFR 78.24 (mL/min/1.73m2); Glucose 273 mg/dL (74-106); Potassium 4.6 mmol/L (3.5-5.1); Sodium 138 mmol/L (136-145); Total Protein 7.4 g/dL (6.4-8.2)
[2024-07-14 09:57] LABS: TSH (W/Ref FT4) 1.79 uIU/mL (0.36-3.74)
[2024-07-14] MEDS: Ibuprofen 400 MG TAB PO (11:16)
[2024-07-14] MEDS: Gabapentin 300 MG CAP PO ×2 (11:18→21:16)
--- NOTE | 2024-07-14 13:07 | NUR.NOTE ---
Nursing Note: [place] [facility] [place]PN d/c'd at this time for transport per ambulance crew. Provider notified.
--- NOTE | 2024-07-14 15:49 | NT_ITS ---
PT Notes Visit Reasons: SBO Pt out of facility for procedure at [facility] [place].Not available for treatment
--- NOTE | 2024-07-14 15:49 | PT.INNT ---
PT Notes Visit Reasons: SBO Pt out of facility for procedure at [facility] [place].Not available for treatment
--- NOTE | 2024-07-14 16:21 | NUR.NOTE ---
Nursing Note:Report taken from [facility] RN Paul. New drain place, LLQ, more centerline. 15 ML aspirate, sent to lab. Pt received 150 fentanyl, 3 Versed. Tachy at 118. bgl 94. Pt en route to [facility] at time of this note.
[2024-07-14 17:56] VITALS: BP 146/64; PULSE 118; TEMP 36.3; O2SAT 97
[2024-07-15] VITALS (7 sets, daily range): BP systolic 127–170; BP diastolic 55–63; PULSE 108–115; RESP 16–22; TEMP 36–37.3; O2SAT 93–95
[2024-07-15] MEDS: Insulin Aspart 300 UNITS/3 ML PEN SC ×3 (00:17→17:51)
[2024-07-15] MEDS: Levalbuterol HFA 15 GM INH 2 PUFF IH ×4 (00:18→21:00)
[2024-07-15] MEDS: Budesonide/Formoterol 80/4.5 6.9 GM 60 PUFF INH IH ×2 (07:26→21:01)
[2024-07-15 07:55] LABS: Anion Gap 10.1 mmol/L (3-11); BUN 16 mg/dL (7-18); CO2 27.9 mmol/L (21.0-32.0); CREATININE 0.8 mg/dL (0.55-1.02); Calcium 9.1 mg/dL (8.5-10.1); Chloride 102 mmol/L (98-107); Estimated GFR 78.24 (mL/min/1.73m2); Glucose 203 mg/dL (74-106); Potassium 4.2 mmol/L (3.5-5.1); Sodium 140 mmol/L (136-145)
[2024-07-15] MEDS: Enoxaparin 40 MG/0.4 ML SYR SC (09:09)
[2024-07-15] MEDS: Losartan 50 MG TAB 100 MG PO (09:09)
[2024-07-15] MEDS: metFORMIN 500 MG TAB 1000 MG PO ×2 (09:10→17:56)
[2024-07-15] MEDS: Gabapentin 300 MG CAP PO ×2 (09:10→15:35)
[2024-07-15] MEDS: Isosorbide Mononitrate 60 MG TABCR PO (09:10)
[2024-07-15] MEDS: amLODIPine 10 MG TAB PO (09:10)
[2024-07-15] MEDS: Famotidine 20 MG TAB 40 MG PO (09:11)
--- NOTE | 2024-07-15 10:00 | W.PM.PROGNOT ---
Date of Service Date of service: 07/15/24 Time of Service: 10:00 Assessment and Plan Assessment and plan (1) Enterocutaneous fistula: Status: Chronic Assessment and plan: 73-year-old woman is postop a little over 2 weeks from exploratory laparotomy. She developed an enterocutaneous fistula postoperative day 4. Unclear etiology of the fistula but could be an enterotomy, could be a colotomy, could be a leak from the anastomosis (could be related to thrombotic events from platelet aggregation). IR drain placement yesterday, with thick light brown material that appears feculent in nature Drain which was placed post op 2+ weeks ago in RU has feculent in nature as well. Encouraged ambulation as tolerated. Continue regular diet Weaning off TPN DVT prophylaxis Pain seems to be fairly well managed at this time. All eric were removed this morning, which she tolerated well. Subjective Subjective Interval history since last seen: Arrive with Kae resting comfortably in bed. She states that she is feeling some soreness from the drain placement yesterday but over all well. She is looking forward to a shower later today. Exam Const General: cooperative, healthy appearing and comfortable Orientation: alert and oriented x3 Resp Effort & Inspection: normal respiratory effort, able to speak in complete sentences, no audible wheezes and no cough GI Inspection: normal to inspection Palpation: soft, no guarding and tender Other: Right sided drain- Light brown, thick material contents within the bag IR placed drain along midline- light brown, thick contents noted within the drain. [place] were present of midline incision and port sides. These were removed with some discomfort, which Kae tolerated well. Objective Last Vital Signs Temp 36.6 C 07/15/24 07:47 Pulse 110 H 07/15/24 07:47 Resp 20 07/15/24 07:47 BP 151/60 H 07/15/24 08:05 Pulse Ox 94 07/15/24 07:47 Laboratory Results - last 24 hr 07/14/24 07/15/24 09:20 06:45 Sodium 140 Potassium 4.2 Chloride 102 Carbon Dioxide 27.9 Anion Gap 10.1 BUN 16 Creatinine 0.8 Est GFR (CKD-EPI 2020) 78.24 Glucose 203 H Calcium 9.1 TSH 1.79 Time Spent with Patient Time Spent with Patient: <25 minutes Time was spent: preparing to see the patient(eg.review tests), obtaining and/or reviewing separately otained hiistory and counseling the patient
--- NOTE | 2024-07-15 11:43 | CMPROGNOTE_ITS ---
Date of service: 07/15/24 Time of Service: 11:43 Care Management Progress Note Progress Note Text Progress Note Text: Bubba was sitting up in bed when CM met with her. She was in better spirits today and stated she feels she is improving. She is a little sore at the site where the drain was placed but the severe pain from the abscess is gone. Bubba is very anxious to be discharged. She misses her home and her family and feels she would recuperate faster in her own environment. The provider has not discharged her yet however orders have been placed for home health. Bubba was happy when CM shared that with her as it is an indication that her discharge is on the horizon. Discharge Potential Discharge Needs: PCP F/U Appt Anticipated Barriers to Discharge: Medical Status Patient/Family Education Needs: Review discharge instructions, discuss Ask Me Three Transportation: Private vehicle Plan: Anticipate Kae will be discharged home, when medically stable, with new RN and PT. She will follow up with her community providers and plan of care and transport with her . CM will follow and continue to assess for discharge needs. Social Determinants of Health Screening Social Determinants of Health last assessed: 07/15/24 Will the Patient Participate in the Screening?: Yes Do you worry about having a steady place to live?: no Problems where you live: no known problems In the past 12 months, have you had to go without electric, gas, oil or water in your home?: no Have you or anyone in your house had to go without enough food to eat?: no Has lack of transportation kept you from medical appointments or from doing things needed for daily living?: no Has anyone in your life made you feel unsafe or unsupported?: no How hard is it for you to pay for the very basics like food, housing, medical care, and heating? Would you say it is:: Not hard at all Do you want help finding or keeping work or a job?: I do not need or want help If for any reason you need help with day-to-day activities such as bathing, preparing meals, shopping, managing finances, etc., do you get the help you need?: I don?t need any help How often do you feel lonely or isolated from those around you?: Never Do you speak a language other than Turkish at home?: No Does the patient want assistance with any of the above?: No
--- NOTE | 2024-07-15 13:15 | NUR.NOTE ---
Nursing Note: Per Dr. Rizo, run TPN at half rate until bag done.
--- NOTE | 2024-07-15 13:16 | PDOC.HHF2F ---
Home Health Referral Home Health Orders Clinical synopsis of why skilled professionals are needed: Kae has two abdominal drains after small bowel resection that require assessment and maintenance Medical diagnosis necessitation home health referral: enterortomy with drainage Registered Nurse: Check all that apply Assess for exacerbation of medical condition, instruct patient/caregivers on signs and symptoms to report for early detection: Ordered (s/p exploratory laparotomy with small bowel resection with drainage of enterotomies) Assess wound for signs and symptoms of infection, instruct on wound care and/or provide skilled wound care consisting of: Irrigate and assess integrity of abdominal drains daily. Trend volume and character of output Home Bound Status Requires the aid of supportive device (check all that apply): Walker Patient has a condition such that leaving home is medically contraindicated (Describe): she has multiple abdominal drains that prohibit easy transport to and from health care settings. Describe why leaving home would require a considerable and taxing effort: Side effects from pain medication (sedation/drowsiness), Requires frequent rest periods and Other (presence of multiple abdominal drains.) Encounter Date and Reason: I certify that a FTF encounter for this patient was performed on July 15, 2024 and that such encounter was related to the primary reason the patient requires home health services. The encounter was conducted in the following manner: By me as the certifying physician, SOFTWARE RELIABILITY ENGINEER, PA or By an inpatient physician, SOFTWARE RELIABILITY ENGINEER or PA during an inpatient stay who communicated findings to me, Certification And Authentication I certify that I composed the above information based on my clinical judgment relating to this patient's medical condition and, if applicable, clinical findings communicated to me by the NPP or inpatient physician who performed the FTF encounter. Name of Provider that will be monitoring home health services: Fernando Rizo
--- NOTE | 2024-07-15 14:12 | NT_ITS ---
PT Notes Visit Reasons: SBO Pt refused to participate with therapy this afternoon, pt reports she is still recovering from her transport to [facility] yesterday, she also reports that her stiches in her stomach was removed today and is still very achy. This therapist offered to inform the nurse about pain meds but pt politely declined reports she would rather rest for today and try to participate tomorrow.
--- NOTE | 2024-07-15 15:19 | PT.INTREAT ---
PT Notes Visit Reasons: SBO Date: 07/15/2024 PRECAUTIONS: Fall. Standard. Activity as tolerated, pre-medicate for pain. SUBJECTIVE: Pt had a change of mind and decided she would like to participate with gait training after taking a 30mins nap. OBJECTIVE: ?TPN Access, Abdominal drain right side ? PAIN: 6?7/10 pain in abdominal area pre session VITALS: closely monitored by nursing Therapeutic Activities 81169: Direct one-on-one instruction in dynamic activities to improve functional performance. ?? BED MOBILITY/TRANSFERS? Rolling L/R: SBA Supine-sit: ?SBA ? Sit-supine: ? SBA? Sit-stand: ? SBA? Stand-sit: ??SBA ? Bed-Chair:? SBA? Chair-bed: SBA Provided skilled cues and instruction on performance and technique throughout. Gait Training 68435: Direct one-on-one instruction and skilled instruction in: Employing an assistive device Modified weight-bearing status Movement sequencing Turning and movement with proper form Provided verbal cues for equipment management and technique Provided instruction in gait pattern Patient education regarding pacing and breathing techniques to maximize activity tolerance? GAIT? Assistive Device: ?? FWW? Weight bearing: FWB Assist: ? SBA first 200', CGA?100' to get back in pt room ? Distance:?? 300' ?WC follow and IV pole management ? Deviation: ? Slow colin, stoop forward posture, WBOS, low step height and short step length, pt gait shifted to increased colin speed ?at the 200' distance covered with pt expressing my legs feel like jello and I would like to get this over with. support modified from SBA to close contact guarding for safety.? ASSESSMENT:?pt very happy with what she had accomplish, reports that she had enough activity and would like to go back in bed to rest. PLAN: Continue with balance training, global strengthening and general conditioning for improved safety, mobility and activity tolerance until pt is ready for DC. TREATMENT CODE/TIME: [id number] 15mins (2:55-3:10pm)
[2024-07-15] MEDS: Ibuprofen 400 MG TAB PO (17:50)
[2024-07-15] MEDS: traZODone 100 MG TAB PO (17:50)
--- NOTE | 2024-07-15 18:18 | PGE_ITS ---
Date of Service Date of service: 07/15/24 Time of Service: 18:18 Assessment and Plan Assessment and plan (1) Enterocutaneous fistula: Status: Chronic Assessment and plan: Unfortunately, the drain in the right lower quadrant was dislodged today and is now completely out. The other drain looks like it is working fine. It has been draining quite a bit of air, so I switched it over from bulb suction to gravity drainage today. Will see how this evolves now that the other drain is out. I have also let the TPN run out for today. I will repeat some labs tomorrow, and reassess over the next 24 hours. Hopefully, the drain will help control the fistula, and we can get her discharged home and continue to work on this as an outpatient. Subjective Subjective Interval history since last seen: Kae looks great today, and she says she continues to feel better, and she is quite eager to be discharged home. She is tolerating her diet without any type of nausea or vomiting. She is having flatus and bowel movements. Exam GI Other: Her abdomen is soft and nondistended. The midline incision is all healed up. Objective Last Vital Signs Temp 98.6 F 07/15/24 14:48 Pulse 115 H 07/15/24 14:48 Resp 20 07/15/24 14:48 BP 130/58 L 07/15/24 14:48 Pulse Ox 95 07/15/24 14:48 Laboratory Results - last 24 hr 07/15/24 06:45 Sodium 140 Potassium 4.2 Chloride 102 Carbon Dioxide 27.9 Anion Gap 10.1 BUN 16 Creatinine 0.8 Est GFR (CKD-EPI 2020) 78.24 Glucose 203 H Calcium 9.1 Time Spent with Patient Time Spent with Patient: 35-49 minutes Time was spent: preparing to see the patient(eg.review tests), ordering medications,tests, procedures, referring, communicating with other health home care physical therapist, indepentently interpreting results and counseling the patient
--- NOTE | 2024-07-15 18:32 | NUR.NOTE ---
Nursing Note: Pt stated she stood up to use commode after surgeon replaced judy bulb with bile bag for drainage, and the drain slide out. RN inspected drain: stitches intact around drain line. No drainage in bag or line. No additionally securement device seen. Entry site assessed- stitches intact to skin, loops of stitches visible outside of site. Drainage on dressing, brown with serosanguinous. No drainage visible at site of incision. Site covered with non-stick dressing and sterile 4x4, secured with medipore tape per verbal order of surgeon. Pt tolerated well, stated the drain coming out scared her.
[2024-07-16] MEDS: Insulin Aspart 300 UNITS/3 ML PEN SC ×4 (02:02→18:33)
[2024-07-16 03:03] VITALS: BP 152/65; PULSE 122; RESP 16; TEMP 36.7; O2SAT 94
[2024-07-16 07:36] LABS: HCT 27.7 % (36.0-46.0); HGB 8.7 g/dL (11.2-15.7); MCH 29.2 pg (27.0-33.0); MCHC 31.4 % (32.0-36.0); MCV 93 fL (80-95); MPV 10.1 fL (8.0-11.0); Platelet Count 562 10^3/uL (130-400); RBC 2.98 10^6/uL (3.93-5.22); RDW 14.1 % (11.7-14.6); RDW-SD 48.5 fL; WBC 9.91 10^3/uL (4.4-10.8)
[2024-07-16 07:50] VITALS: BP 140/62; PULSE 120; RESP 18; TEMP 37.5; O2SAT 95
--- NOTE | 2024-07-16 08:41 | PGE_ITS ---
Date of Service Date of service: 07/16/24 Time of Service: 08:42 Assessment and Plan Assessment and plan (1) Enterocutaneous fistula: Status: Chronic Assessment and plan: Obviously, it is quite disappointing that the patient went through all the effort to get down to [facility] for a new drain, and that therapy was not durable. However, there was minimal drainage in the catheter itself prior to its dislodgment, and the other drain remains patent and clearly functional. I am reassured by the normal white blood cell count today, and that her physiology otherwise is totally unchanged. I was hopeful to get her discharged this weekend, but I would like to see how things evolve since that drain is out. I explained that we will repeat a CBC tomorrow, and continue to reassess the other surgical drain. If everything remains stable through tomorrow, then I am hopeful she could be discharged home at that point. She is clearly proven that she is doing okay without any antibiotic therapy, and she seems to be meeting all of her basic nutrition and hydration goals without any parenteral supplements. We talked at length again about the complexity of her peritoneal c avity (using simple language) and I remain optimistic that the surgical drain is allowing her abdomen and pelvis to compartmentalize. Hopefully, this will mature into a controlled enterocutaneous fistula that could be managed with something as simple as a colostomy bag assuming we can slowly withdraw the drain during the coming weeks as an outpatient. In the big picture of things, this may be her best management option. 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 I think Dave has a very good understanding of all of that. The plan for today is more observation and a repeat set of labs tomorrow, and will reassess at that point. Subjective Subjective Interval history since last seen: Unfortunately, the percutaneous drain that was placed down at [facility] fell out last night, when the patient was transitioning from bed to standing. This was dressed with some basic gauze, and is remained fairly dry through the course of the night. Kae reported a fair amount of pain over the site when it first fell out, but that seems to be improving. Otherwise, she feels the same, and continues to tolerate her diet with passage of flatus and stool. Exam GI Other: Her abdomen is soft and nondistended. She does have some tenderness over the site where the drain fell out. There is no erythema here. I am able to express only a tiny amount of serous fluid from the needle site. The other drain remains patent, and I irrigated this morning with 10 cc of saline. Objective Last Vital Signs Temp 99.5 F 07/16/24 07:50 Pulse 120 H 07/16/24 07:50 Resp 18 07/16/24 07:50 BP 140/62 07/16/24 07:50 Pulse Ox 95 07/16/24 07:50 Laboratory Results - last 24 hr 07/16/24 07:05 WBC 9.91 RBC 2.98 L Hgb 8.7 L Hct 27.7 L MCV 93 MCH 29.2 MCHC 31.4 L RDW 14.1 Plt Count 562 H MPV 10.1 Time Spent with Patient Time Spent with Patient: >50 minutes Time was spent: preparing to see the patient(eg.review tests), ordering medications,tests, procedures and counseling the patient
[2024-07-16] MEDS: Levalbuterol HFA 15 GM INH 2 PUFF IH ×2 (08:47→14:26)
--- NOTE | 2024-07-16 08:53 | PDOC.HHF2F_ITS ---
Home Health Referral Home Health Orders Clinical synopsis of why skilled professionals are needed: Kae is 73 years old, she had a complicated abdominal surgery with small bowel resection, and drainage of an enterocutaneous fistula. She will be discharged home with a surgical drain in place that will require daily irrigation and management. She had been seen by inpatient physical therapy, who recommends outpatient PT needs. Anticipate discharge date 07/17/2024 Medical diagnosis necessitation home health referral: Surgical wound with drainage of enterocutaneous fistula and outpatient PT necessity Registered Nurse: Check all that apply Assess for exacerbation of medical condition, instruct patient/caregivers on signs and symptoms to report for early detection: Ordered (s/p exploratory laparotomy with small bowel resection with drainage of enterotomies) Assess wound for signs and symptoms of infection, instruct on wound care and/or provide skilled wound care consisting of: Assessment of right lower quadrant surgical drain surgical wounds. Drain requires daily irrigation with 10 cc of saline solution emptied to gravity drainage. Please record volume daily Physical Therapist: Check all that apply Increase strength & endurance for safe mobility at home: Ordered To design/establish home maintenance program: Ordered Home safety evaluation and teaching/gait training including stair management (if applicable): Ordered Home Bound Status Requires the aid of supportive device (check all that apply): Walker Patient has a condition such that leaving home is medically contraindicated (Describe): she has abdominal drains that prohibit easy transport to and from health care settings. She is also debilitated with ongoing home PT needs Encounter Date and Reason: I certify that a FTF encounter for this patient was performed on July 16, 2024 and that such encounter was related to the primary reason the patient requires home health services. The encounter was conducted in the following manner: * By me as the certifying physician, SIGNAL TOWER DIRECTOR, PA or * By an inpatient physician, SIGNAL TOWER DIRECTOR or PA during an inpatient stay who communicated findings to me, Certification And Authentication I certify that I composed the above information based on my clinical judgment relating to this patient's medical condition and, if applicable, clinical findings communicated to me by the NPP or inpatient physician who performed the FTF encounter. Name of Provider that will be monitoring home health services: Fernando Rizo
[2024-07-16] MEDS: Ibuprofen 400 MG TAB PO (09:28)
[2024-07-16] MEDS: Metoprolol CR 50 MG TABCR PO (09:28)
[2024-07-16] MEDS: Isosorbide Mononitrate 60 MG TABCR PO (09:28)
[2024-07-16] MEDS: Enoxaparin 40 MG/0.4 ML SYR SC (09:29)
[2024-07-16] MEDS: metFORMIN 500 MG TAB 1000 MG PO (09:29)
[2024-07-16] MEDS: Normal Saline Flush 10 ML SYR IVP ×3 (09:30→17:10)
[2024-07-16 11:18] VITALS: BP 143/58; PULSE 125; RESP 16; TEMP 37.4; O2SAT 94
[2024-07-16] MEDS: Ondansetron 4 MG/2 ML VIAL IVP ×2 (12:26→17:09)
--- NOTE | 2024-07-16 13:22 | NUR.NOTE ---
Nursing Note: Patient vomited after taking some her morning PO medication, and refused the remainder of her medication. Discussed with Dr. Claudio. Patient reported continuing to vomit in the waste bin at bedside. The emesis could not be located in the waste bin for visual or volume assessment. Patient was medicated for nausea as ordered. Patient continues to refuse oral medication.
[2024-07-16 15:17] VITALS: BP 157/62; PULSE 128; RESP 18; TEMP 37.4; O2SAT 94
--- NOTE | 2024-07-16 19:04 | NUR.NOTE ---
Nursing Note: Patient complains of continued nausea. Noted one episode of vomiting a small volume of clear liquid. Patient is refusing all IV and PO medications, stating they all make her nauseous. Discussed medication importance with patient and she verbalized that she understands. Patient stated she taking her medications orally at home does not make her nauseous, and she wants to go home in the morning. Dr. Rizo suggested Reglan, patient refused, stating all IV and oral medications make her nauseous. Relayed to night nurse Bernardo.
[2024-07-16 19:57] VITALS: BP 170/66; PULSE 135; RESP 18; TEMP 37.5; O2SAT 94
--- NOTE | 2024-07-16 20:40 | NUR.NOTE ---
Pt is refusing all care, assessments and medications att. Not able to take any pills by mouth without vomitting.Nursing Note:
[2024-07-17] MEDS: Insulin Aspart 300 UNITS/3 ML PEN SC ×2 (01:00→06:05)
[2024-07-17] MEDS: Ondansetron 4 MG/2 ML VIAL IVP ×2 (01:53→06:19)
[2024-07-17] MEDS: Normal Saline Flush 10 ML SYR IVP ×2 (01:54→06:19)
[2024-07-17 06:08] VITALS: BP 150/65; PULSE 111; RESP 20; TEMP 36; O2SAT 94
[2024-07-17 07:22] LABS: HCT 27.9 % (36.0-46.0); MCH 29.4 pg (27.0-33.0); MCHC 32.3 % (32.0-36.0); MCV 91 fL (80-95); Platelet Count 542 10^3/uL (130-400); RBC 3.06 10^6/uL (3.93-5.22); RDW 13.9 % (11.7-14.6); RDW-SD 46.8 fL
[2024-07-17 07:36] LABS: Anion Gap 5.1 mmol/L (3-11); BUN 10 mg/dL (7-18); CO2 32.9 mmol/L (21.0-32.0); CREATININE 0.9 mg/dL (0.55-1.02); Calcium 8.7 mg/dL (8.5-10.1); Chloride 99 mmol/L (98-107); Estimated GFR 67.92 (mL/min/1.73m2); Glucose 175 mg/dL (74-106); Potassium 3.8 mmol/L (3.5-5.1); Sodium 137 mmol/L (136-145)
[2024-07-17 07:44] VITALS: BP 128/57; PULSE 115; RESP 18; TEMP 36.8; O2SAT 96
--- NOTE | 2024-07-17 08:21 | DSE_ITS ---
Date of service: 07/17/24 Time of Service: 08:21 DS: Diagnosis Discharge Diagnosis (1) Enterocutaneous fistula: Status: Chronic Asessment and Plan: Discharge home with outpatient follow-up this week Discharge Plan Disposition Patient Disposition: Home W/Home Health Services Condition: Fair Discharge Details Reason For Visit: SBO Admit Date/Time: 06/29/24 05:51 Admit Provider: Elvis Colon Attending Provider: Elvis Colon Primary Care Provider: Nikolas Matos Hospital Course Hospital Course: Dave is 73 years old. She has had chronic recurrent partial small bowel obstructions after multiple abdominal surgeries, chronic pain on the left lower quadrant. She underwent laparoscopic, converted to open small bowel resection and extensive adhesiolysis. Her postoperative course was complicated by an enterotomy which was controlled with a surgical drain. She underwent an empiric course of antibiotic therapy to help reduce risk of sepsis. She was maintained on total parenteral nutrition for some time to optimize her nutrition as her diet was slowly titrated upwards. There was no significant change in the character or volume of her drain, and she was eventually weaned off the TPN. She underwent imaging of the abdomen in an effort to characterize the location of the enterotomy, however despite the obvious extravasation of contrast, the location of the enterotomy was not able to be deciphered. A second drain was added, which eventually became dislodged. Although she had some improvement of her abdominal discomfort with that drain, she did well after it was removed. This left her with a single drain which continued to control the enterotomy. After multiple conversations regarding different treatment options, we agreed that ongoing drainage, was probably the best option. In the best case scenario, we will slowly backed the drain out over time, and hopefully the fistula will close down. Alternatively, he may ultimately convert itself to a controlled enterocutaneous fistula, which could be managed with a ileostomy bag. By time of discharge, she was eating and drinking and maintaining adequate nutrition and hydration. She had a persistent tachycardia, but no other signs of sepsis, and she was discharged home with outpatient follow-up care. Home Meds and New Rx's Prescriptions: Continued albuterol sulfate 90 mcg/actuation HFA aerosol inhaler 2 puff inhalation Q6H PRN amlodipine 10 mg tablet 10 mg PO DAILY isosorbide mononitrate 60 mg tablet extended release 24 hr 60 mg PO DAILY nitroglycerin 0.4 mg tablet, sublingual 0.4 mg sublingual Q5M PRN Rx Instructions: do not exceed 3 doses per episode omeprazole 20 mg capsule,delayed release(DR/EC) 20 mg PO BID aspirin 81 mg tablet,delayed release (DR/EC) 81 mg PO DAILY Docusate Sodium 200 mg PO HS diphenhydramine HCl [Allergy (diphenhydramine)] 25 mg capsule 25 mg PO QHS metformin 1,000 mg tablet 1,000 mg PO BID hydroxyzine HCl 25 mg tablet 25 mg PO TID PRN Ozempic 0.25 mg or 0.5 mg (2 mg/3 mL) pen injector 0.5 mg subcut QWEEK Ex-Lax (sennosides) 15 mg tablet,chewable 15 mg PO BID neomycin 500 mg tablet 500 mg PO .COMPLEX Qty: 8 0RF Rx Instructions: 500 mg orally Per bowel surgery instructions; metronidazole 500 mg tablet 500 mg PO .COMPLEX Qty: 8 0RF Rx Instructions: 500 mg orally Per bowel surgery instructions; ondansetron HCl 8 mg tablet 8 mg PO Q12H Qty: 3 0RF levalbuterol tartrate 45 mcg/actuation HFA aerosol inhaler 2 inh inhalation Q6H atorvastatin 20 mg tablet 20 mg PO DAILY fluticasone furoate-vilanterol [Breo Ellipta] 100-25 mcg/dose blister with device 1 inh inhalation DAILY famotidine 40 mg tablet 40 mg PO DAILY trazodone 100 mg tablet 100 mg PO QHS PRN losartan 100 mg tablet 100 mg PO DAILY Patient Comments: TAKE ONE TABLET BY MOUTH EVERY DAY metoprolol succinate 50 mg Tablet Extended Release 24 Hr 50 mg PO DAILY Qty: 90 0RF hydromorphone 2 mg Tablet 1 mg PO Q4H PRN PRNQty: 16 0RF Discontinued polyethylene glycol 3350 17 gram/dose powder 238 g PO ONCE Qty: 238 0RF Rx Instructions: take per colonoscopy instructions bisacodyl [Dulcolax (bisacodyl)] 5 mg tablet,delayed release (DR/EC) 5 mg PO ONCE Qty: 4 0RF Rx Instructions: take per colonoscopy instructions Discharge Instructions Additional Instructions: Kae, I hope the transition home goes smoothly, and I look forward to seeing you in the office. As we talked about before your discharge, over the coming weeks, I want you to check your temperature once in the morning, once in the evening, and as needed throughout the course of the day. If you feel like you are at all febrile, take a moment to check your temperature. If any of your temperatures go above 100 degrees, would like you to contact the office, or call the hospital to page the surgeon on-call if it is after hours. The other thing that is quite important is to make sure that you maintain adequate nutrition and hydration. Focus on a healthy diet that is balanced with high-protein foods and dietary fiber. I think using a supplement like boost or Ensure will be quite helpful in the coming weeks as your body tries to heal up surgical sites, and the leaking part within your GI tract. I would expect you to be having a bowel movement at least every other day, if not daily. If you notice any significant changes with this, or you start to feel increasingly tired, fatigued, or weak, you should let us know immediately. Please try your best to keep track of how much stuff is coming out of the drain each day. As we discussed before hand, I did request that the case planner arrange for a visiting nurse to come to your house. At this point, that information is not yet finalized, but hopefully we can squared away in the next few days. Since I irrigated your drain today, there is nothing else that she need to do for it for the time being. If the dressings on the outside become saturated, these can be removed, and clean gauze can be replaced over top. Activity:: Activity as Tolerated Equipment/Supplies:: Gauze dressings Diet:: As Tolerated DS: Summary Time Spent with Patient providing and/or coordinating discharge services: Greater than 30 minutes Status at Discharge Functional status at discharge: uses cane/walker Overall status at discharge: patient is progressing back to baseline Mental Status: mental status grossly normal Speech and Movement: speech and movement normal Mood: congruent mood Affect: normal affect Quality:SDOH Health Related Social Needs: No Data to Display Exam GI Other: Abdomen is soft and nondistended. She continues to have some tenderness a little bit towards the midline or slightly towards the left lower quadrant, but it seems to be improving overall. Surgical site is clean, without any active sites of infection. Right lower quadrant surgical drain has enteric contents. Psych Mental Status: mental status grossly normal Speech and Movement: speech and movement normal Mood: congruent mood Affect: normal affect DS: Data Vitals/I&O Vitals and I&O: Vital Signs Temperature 98.2 F 07/17/24 07:44 Temperature Source Temporal Artery Scan 07/17/24 07:44 Pulse 115 H 07/17/24 07:44 Pulse Rhythm Regular 06/29/24 06:24 Pulse 97 H 06/29/24 17:01 Respiratory Rate 18 07/17/24 07:44 Respiratory Effort Normal 06/29/24 17:45 Respiratory Depth Normal 06/29/24 17:45 Respiratory Pattern Normal 06/29/24 17:45 Blood Pressure 128/57 L 07/17/24 07:44 Blood Pressure Mean 71 06/29/24 17:01 Pulse Oximetry 96 07/17/24 07:44 Respiratory End-tidal CO2 33 06/29/24 17:01 Oxygen Delivery Method Room Air 07/17/24 07:44 Oxygen Flow Rate 0 07/17/24 07:44 Pain Level 5 07/17/24 06:08 Comment Pt refused vitals att. stating Leave me alone. 07/17/24 01:00 Intake & Output 07/16/24 07/16/24 07/17/24 11:59 23:59 11:59 Intake Total 360 / 360 200 / 200 Output Total 250 / 850 600 / 850 Balance -250 / -490 -240 / -490 200 / 200 Intake: Oral 360 / 360 200 / 200 Output: Urine 250 / 850 600 / 850 Other: Urine Color Yellow Yellow Yellow Urine Appearance Clear Clear Cloudy Urine Odor Normal Normal Normal Comment Pt voided unmeasured amount into commode w/ loose stool. mixed with stool Stool Size Moderate Small Small Stool Characteristics Liquid Soft Soft Brown Liquid Brown Green Data Completed and Pending Labs on day of discharge: Labs from last 24 hours 07/17/24 07/16/24 06:50 08:41 WBC 10.40 RBC 3.06 L Hgb 9.0 L Hct 27.9 L MCV 91 MCH 29.4 MCHC 32.3 RDW 13.9 Plt Count 542 H MPV 10.0 Sodium 137 Cancelled Potassium 3.8 Cancelled Chloride 99 Cancelled Carbon Dioxide 32.9 H Cancelled Anion Gap 5.1 Cancelled BUN 10 Cancelled Creatinine 0.9 Cancelled Est GFR (CKD-EPI 2020) 67.92 Cancelled Glucose 175 H Cancelled Calcium 8.7 Cancelled PFSH All Active Problems (Updated 07/13/24 @ 16:14 by Phillip Claudio MD) Tachycardia (Acute) Chronic abdominal pain (Acute) Enterocutaneous fistula (Chronic) Hyperglycemia (Acute) Protein calorie malnutrition (Acute) Anemia of chronic disease (Acute) 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 (Acute) Arthritis (Acute) Back pain (Acute) GERD (gastroesophageal reflux disease) (Chronic) Obesity (Chronic) Claustrophobia (Acute) Osteoporosis (Chronic) Headache (Acute) Asthma with COPD (chronic obstructive pulmonary disease) (Acute) Vitamin D deficiency (Acute) Corns and callosities (Acute) Cubital tunnel syndrome on left (Acute) Cubital tunnel syndrome on right (Acute) Trigger finger, left middle finger (Acute) Trigger finger, right middle finger (Acute) Left carpal tunnel syndrome (Acute) Right carpal tunnel syndrome (Acute) Medical History (Updated 07/13/24 @ 16:14 by Phillip Claudio MD) Hypokalemia Abdominal discomfort Screening for colon cancer Diabetes mellitus CAD (coronary artery disease) Parkinsons disease 02/03/23 pt has a DBS implanted for this RH Hypertension Hyperlipidemia Stenosis colon Osteoarthritis of left knee mild Small bowel obstruction Diverticulitis PTSD (post-traumatic stress disorder) Dermatitis Anxiety Petechial rash upper and lower extremities, chronic. Started in 2018. COPD (chronic obstructive pulmonary disease) Surgical History (Updated 07/09/24 @ 14:11 by Stacy Pires DO) Status post small bowel resection S/P exploratory laparotomy small bowel resection History of colonoscopy (~02/2024) History of colostomy reversal Social History Smoking/Tobacco Use Status: Former Tobacco Use Quit Date: 06/15/11 Smoking risk assessment performed?: Yes Alcohol Intake: never Drug use: Never Substance use type: does not use Housing: house Do you feel safe at home: Yes Do you feel safe in your relationship?: Yes Time Spent with Patient Time Spent with Patient: >85 minutes Time was spent: preparing to see the patient(eg.review tests), referring, communicating with other health inspector health care facilities, indepentently interpreting results, counseling the patient and care coordination
[2024-07-17] MEDS: Bacitracin 1 PACKET (08:55)
--- NOTE | 2024-07-17 08:57 | W.PM.PROGNOT ---
Date of Service Date of service: 07/17/24 Time of Service: 08:57 Assessment and Plan Assessment and plan (1) Enterocutaneous fistula: Status: Chronic Assessment and plan: I spoke with Kae and her for a little while regarding her surgery, recovery, and the prognosis for the weeks and months to come. I explained in simple language that there is clearly a leak somewhere in her GI tract, and although we have tried identify the exact location, we have not been successful so far. I explained that the hostile nature of her abdomen makes it extremely dangerous to go back to the operating room searching for the fistula. At this point, since it is well-drained, and she is proven over several days that she does not have any active uncontrolled infection, then I think we can try to move forward with outpatient management. We are making arrangements for nurse to come to the house to help with drain management and wound care, as well as outpatient physical therapy. I explained that that may not be set up for several days. I would like to see her again in the office later this upcoming week, or more likely early the next week with some follow-up labs to reassess. I explained what to be on the look out for as she transitions home, and certainly if anything seems out of the ordinary or starts to feel all sick, then notifying us immediately for prompt care is quite important. Subjective Subjective Interval history since last seen: Kae is feeling better this morning compared last night, when she was quite anxious about getting home. Overall, she says her pain is decreased, and despite some nausea associated with pills, she is otherwise tolerating food and drink without any issues. She continues to have bowel movements. The volume and character of her surgical drain is stable. Exam GI Other: Her abdomen is soft, and still a little bit tender, mostly in the left mid abdomen. The surgical site is clean, and looks to be nicely healed. I do not see any active signs of infection at the superficial soft tissue level. Objective Last Vital Signs Temp 98.2 F 07/17/24 07:44 Pulse 115 H 07/17/24 07:44 Resp 18 07/17/24 07:44 BP 128/57 L 07/17/24 07:44 Pulse Ox 96 07/17/24 07:44 Laboratory Results - last 24 hr 07/17/24 06:50 WBC 10.40 RBC 3.06 L Hgb 9.0 L Hct 27.9 L MCV 91 MCH 29.4 MCHC 32.3 RDW 13.9 Plt Count 542 H MPV 10.0 Sodium 137 Potassium 3.8 Chloride 99 Carbon Dioxide 32.9 H Anion Gap 5.1 BUN 10 Creatinine 0.9 Est GFR (CKD-EPI 2020) 67.92 Glucose 175 H Calcium 8.7 Time Spent with Patient Time Spent with Patient: 35-49 minutes Time was spent: preparing to see the patient(eg.review tests), indepentently interpreting results and counseling the patient
--- NOTE | 2024-07-17 10:12 | PDOC.CMDIS ---
Date of service: 07/17/24 Time of Service: 10:12 LACE Index Scoring Tool Questions: Length of Stay (in days): 14 or more Was the patient admitted via the E.D.?: Yes Comorbidities: Chronic Pulmonary Disease E.D. Visits: 4 Answers: Total Score: 16 Risk of Readmission: High Risk Care Management Discharge Plan Reason for Hospitalization: SBO Discharge Plan: Kae returned home today with new orders for HH RN, PT. Her drove her home via private vehicle. She will follow up with surgical services and her discharge plan of care. She was happy to be going home. Patient/Family Education Needs: Review discharge instructions and limitations, discussion of self care needs including ask me three. Services Needed at Discharge: Home Health Care Services (new HH RN, PT) SDOH Health Related Social Needs: No Data to Display
== END 2024-07-17 09:43 | disposition home health service (06) | DRG 329 ==
LOC: PDS 05:51 → MS 17:16
PROVIDERS: Hospitalist; Surgery; Admitting Provider Student in an Organized Health Care Education/Training Program; PCP Physician Assistant; Visit Provider Student in an Organized Health Care Education/Training Program
PROC: 0DB80ZZ Excision of Small Intestine, Open Approach (ICD-10-PCS; CPT 49320; principal; 2024-06-29 07:30)
DX: K91.31 Postprocedural partial intestinal obstruction (principal); K65.1 Peritoneal abscess; E46 Unspecified protein-calorie malnutrition; T81.83XA Persistent postprocedural fistula, initial encounter; K63.2 Fistula of intestine; T81.43XA Infection following a procedure, organ and space surgical site, initial encounter; J44.9 Chronic obstructive pulmonary disease, unspecified; I10 Essential (primary) hypertension; G20.A1 Parkinson's disease without dyskinesia, without mention of fluctuations; D63.8 Anemia in other chronic diseases classified elsewhere; E11.65 Type 2 diabetes mellitus with hyperglycemia; L98.8 Other specified disorders of the skin and subcutaneous tissue; G89.29 Other chronic pain; F43.10 Post-traumatic stress disorder, unspecified; E78.2 Mixed hyperlipidemia; R00.0 Tachycardia, unspecified; E87.6 Hypokalemia; I25.10 Atherosclerotic heart disease of native coronary artery without angina pectoris; K21.9 Gastro-esophageal reflux disease without esophagitis; Z96.82 Presence of neurostimulator; Z53.31 Laparoscopic surgical procedure converted to open procedure; G89.18 Other acute postprocedural pain; Y83.2 Surgical operation with anastomosis, bypass or graft as the cause of abnormal reaction of the patient, or of later complication, without mention of misadventure at the time of the procedure; E66.9 Obesity, unspecified; E55.9 Vitamin D deficiency, unspecified; E78.5 Hyperlipidemia, unspecified; F41.9 Anxiety disorder, unspecified; Z68.32 Body mass index [BMI] 32.0-32.9, adult
CPT/HCPCS: 58662; 36573; 36410 ×2; 36556; 44120; 45378; 00123; 36415; 71045; 76942; 80048; 80053; 85027; 86022; 94640; 97110; 97162; 97530; J1650; 74018; 74019; 74176; 81003; 82040; 82607; 82728; 82746; 83735; 84100; 84134; 84443; 85025; 85610; 85730; 86140; 88307; 94664; 94760; 99221; J0131; J0171; J0665; J0666; J0690; J0744; J0883; J1100; J1171; J1200; J1644; J1720; J1805; J1815; J1836; J1885; J2003; J2270; J2405; J2704; J3475; J3480; Q9967

== ENCOUNTER 2024-07-18 16:21 | Inpatient (IN) | payer BC, MEDICARE, SELFPAY ==
[2024-07-18] VITALS (43 sets, daily range): BP systolic 80–194; BP diastolic 29–116; PULSE 115–139; RESP 15–34; TEMP 37.1–37.9; O2SAT 92–95
--- NOTE | 2024-07-18 16:45 | ED.GENADUL_ITS ---
Discharge Plan Disposition Patient Disposition: Admit to [facility] Discharge Details Clinical Impression: Fever postop Primary Care Provider: Nikolas Matos ED Provider: Imelda Paige Home Meds and New Rx's Prescriptions: No Action albuterol sulfate 90 mcg/actuation HFA aerosol inhaler 2 puff inhalation Q6H PRN amlodipine 10 mg tablet 10 mg PO DAILY isosorbide mononitrate 60 mg tablet extended release 24 hr 60 mg PO DAILY nitroglycerin 0.4 mg tablet, sublingual 0.4 mg sublingual Q5M PRN Rx Instructions: do not exceed 3 doses per episode omeprazole 20 mg capsule,delayed release(DR/EC) 20 mg PO BID aspirin 81 mg tablet,delayed release (DR/EC) 81 mg PO DAILY Docusate Sodium 200 mg PO HS diphenhydramine HCl [Allergy (diphenhydramine)] 25 mg capsule 25 mg PO QHS metformin 1,000 mg tablet 1,000 mg PO BID hydroxyzine HCl 25 mg tablet 25 mg PO TID PRN Ozempic 0.25 mg or 0.5 mg (2 mg/3 mL) pen injector 0.5 mg subcut QWEEK Ex-Lax (sennosides) 15 mg tablet,chewable 15 mg PO BID neomycin 500 mg tablet 500 mg PO .COMPLEX Qty: 8 0RF Rx Instructions: 500 mg orally Per bowel surgery instructions; metronidazole 500 mg tablet 500 mg PO .COMPLEX Qty: 8 0RF Rx Instructions: 500 mg orally Per bowel surgery instructions; levalbuterol tartrate 45 mcg/actuation HFA aerosol inhaler 2 inh inhalation Q6H atorvastatin 20 mg tablet 20 mg PO DAILY fluticasone furoate-vilanterol [Breo Ellipta] 100-25 mcg/dose blister with device 1 inh inhalation DAILY famotidine 40 mg tablet 40 mg PO DAILY trazodone 100 mg tablet 100 mg PO QHS PRN ondansetron HCl 8 mg tablet 8 mg PO Q12H Qty: 14 0RF losartan 100 mg tablet 100 mg PO DAILY Patient Comments: TAKE ONE TABLET BY MOUTH EVERY DAY metoprolol succinate 50 mg Tablet Extended Release 24 Hr 50 mg PO DAILY Qty: 90 0RF hydromorphone 2 mg Tablet 1 mg PO Q4H PRN PRNQty: 16 0RF HPI General Date/Time Provider Initiated Documentation: 07/18/24 16:32 . HPI Narrative: Kae is a 73 year old female who presents to the emergency department today for evaluation of fever of 102 at home. She was discharged to the hospital yesterday after extensive abdominal surgery, sent home with a drain. Reports she has had some nausea today, but otherwise is feeling fine. Denies new vomiting, abdominal pain, change in bowel or bladder function, blood in stool or urine, viral symptoms such as congestion, cough, headache, chest pain, shortness of breath, dizziness. Past medical history is significant for [] Physical exam reassuring. Dave is alert and oriented, no acute distress. Easy work of breathing, lung sounds clear bilaterally. Normal heart sounds. Moist mucous membranes. Abdomen is soft, nondistended, normoactive bowel sounds. She does have tenderness with palpation of lower abdomen where surgical incisions were made. No rashes or lesions noted. Drain is intact to right lower quadrant, draining yellow fluid. History and presentation concerning for postoperative acute abdominal infection with sepsis. Discussed case with Dr. Delarosa, general surgeon. Patient meets sepsis criteria, fluid resuscitation with 2 L initiated and Flagyl/ciprofloxacin IV initiated. Patient does have a history of penicillin allergy and has no recorded tolerance to cephalosporins in the past. I independently interpreted the following tests: CBC notable for newly elevated mild leukocytosis, 12.05 and thrombocytosis (no change from previous). CMP notable for mildly elevated creatinine 1.1, elevated from 0.99-2 25. Sed rate and CRP both elevated, 10.78 and [address] abdomen/pelvis remarkable for left lower quadrant changes concerning for cellulitis at site of recent drain placement (which fell out). Discussed case with Dr. Delarosa, general surgeon. She is at bedside to perform an incision and drainage to help improve draining. Preprocedural Dilaudid ordered. Patient to be admitted to surgical service. Related Data Home Medications ?Medication ?Instructions ?Recorded ?Confirmed Docusate Sodium 200 mg PO HS 04/07/22 07/18/24 albuterol sulfate 90 mcg/actuation 2 puff inhalation Q6H PRN 04/07/22 07/18/24 aerosol inhaler amlodipine 10 mg tablet 10 mg PO DAILY 04/07/22 07/18/24 aspirin 81 mg tablet,delayed 81 mg PO DAILY 04/07/22 07/18/24 release isosorbide mononitrate 60 mg 60 mg PO DAILY 04/07/22 07/18/24 tablet,extended release 24 hr nitroglycerin 0.4 mg sublingual 0.4 mg sublingual Q5M PRN 04/07/22 07/18/24 tablet omeprazole 20 mg capsule,delayed 20 mg PO BID 04/07/22 07/18/24 release hydroxyzine HCl 25 mg tablet 25 mg PO TID PRN 04/21/22 07/18/24 metformin 1,000 mg tablet 1,000 mg PO BID 04/21/22 07/18/24 levalbuterol tartrate 45 2 inh inhalation Q6H 07/06/23 07/18/24 mcg/actuation aerosol inhaler atorvastatin 20 mg tablet 20 mg PO DAILY 01/27/24 07/18/24 famotidine 40 mg tablet 40 mg PO DAILY 01/27/24 07/18/24 fluticasone furoate 100 1 inh inhalation DAILY 01/27/24 07/18/24 mcg-vilanterol 25 mcg/dose inhalation powder (Breo Ellipta) trazodone 100 mg tablet 100 mg PO QHS PRN 01/27/24 07/18/24 losartan 100 mg tablet 100 mg PO DAILY 03/01/24 07/18/24 hydromorphone 2 mg tablet 1 mg (1/2 x 2 mg) PO Q4H PRN PRN 05/05/24 07/18/24 #16 tabs metoprolol succinate 50 mg 50 mg PO DAILY #90 tabs 05/05/24 07/18/24 tablet,extended release 24 hr diphenhydramine HCl 25 mg capsule 25 mg PO QHS 05/18/24 07/18/24 (Allergy (diphenhydramine)) metronidazole 500 mg tablet 500 mg PO .COMPLEX #8 tabs 05/18/24 07/18/24 neomycin 500 mg tablet 500 mg PO .COMPLEX #8 tabs 05/18/24 07/18/24 semaglutide 0.25 mg or 0.5 mg (2 0.5 mg subcut QWEEK 05/18/24 07/18/24 mg/3 mL) subcutaneous pen injector (Ozempic) sennosides 15 mg chewable tablet 15 mg PO BID 05/18/24 07/18/24 (Ex-Lax (sennosides)) ondansetron HCl 8 mg tablet 8 mg PO Q12H #14 tabs 07/18/24 07/18/24 Previous Rx's ?Medication ?Instructions ?Recorded hydromorphone 2 mg tablet 1 mg (1/2 x 2 mg) PO Q4H PRN PRN 05/05/24 #16 tabs metoprolol succinate 50 mg 50 mg PO DAILY #90 tabs 05/05/24 tablet,extended release 24 hr metronidazole 500 mg tablet 500 mg PO .COMPLEX #8 tabs 05/18/24 neomycin 500 mg tablet 500 mg PO .COMPLEX #8 tabs 05/18/24 ondansetron HCl 8 mg tablet 8 mg PO Q12H #14 tabs 07/18/24 Allergies Allergy/AdvReac Type Severity Reaction Status Date / Time alprazolam (From Xanax) Allergy Severe hives Verified 06/29/24 06:43 codeine Allergy Severe throat Verified 06/29/24 06:43 swells shut meperidine (From Demerol) Allergy Severe Hives Verified 06/29/24 06:43 Penicillins Allergy Severe throat Verified 06/29/24 06:43 swells shut butorphanol (From Stadol) Allergy Intermediate Anaphylaxis Verified 06/29/24 06:43 Iodinated Contrast Media Allergy Intermediate rash, Verified 06/29/24 06:43 nausea, vomiting ketorolac (From Toradol) AdvReac Intermediate Nausea Verified 06/29/24 06:43 IV Contrast Allergy Severe Skin Rash Uncoded 06/29/24 06:43 General Stated Complaint: Abd Prob ABRAHAM: 2 Review of Systems Narrative: See HPI Exam Const General: cooperative, healthy appearing, comfortable, no acute distress, well developed and well groomed Nutritional Appearance: average body habitus Orientation: alert and oriented x3 HENMT Mouth: oral mucosae normal and moist mucous membranes Resp Effort & Inspection: normal respiratory effort and able to speak in complete sentences Auscultation: clear to auscultation bilaterally Cardio Rate: tachycardic Rhythm: regular rhythm GI Inspection: non-distended and incision (L abd (covered w/dressing), R abd with drain in place) Palpation: soft, not firm, not rigid and tender (lower abdomen) Auscultation: normal bowel sounds Skin General skin exam: no rashes or lesions noted Course Vital Signs Vital signs: Vital Signs Temperature 37.7 C H 07/18/24 16:23 Pulse 139 H 07/18/24 16:23 Respiratory Rate 20 07/18/24 16:23 Blood Pressure 165/71 H 07/18/24 16:23 Pulse Oximetry 92 07/18/24 16:23 Temperature 37.7 C H 07/18/24 16:23 Temperature Source Oral 07/18/24 16:23 Pulse 139 H 07/18/24 16:23 Respiratory Rate 20 07/18/24 16:23 Blood Pressure 165/71 H 07/18/24 16:23 Pulse Oximetry 92 07/18/24 16:23 Oxygen Delivery Method Room Air 07/18/24 16:23 Oxygen Flow Rate 0 07/18/24 16:23 Pain Level 5 07/18/24 16:23 Medical Decision Making Lab Data Labs: Exam(s) CT ABDOMEN PELVIS WO EXAM: CT ABDOMEN PELVIS WO CLINICAL HISTORY: abd pain and fever s/p surgery. TECHNIQUE: Imaging Protocol: Axial computed tomography images with coronal and sagittal reformatted images were created and reviewed. COMPARISON: CT CT ABDOMEN PELVIS WO from 07/13/2024 FINDINGS: Lack of IV contrast does limit evaluation of the abdominal pelvic organs. ABDOMEN: Lung Bases: There is a calcified granuloma in the left lower lobe. Liver: There is diffuse decreased attenuation of the liver consistent with fatty infiltration. The liver is mildly enlarged. No measurable mass. Gallbladder and biliary tract: The patient is status post cholecystectomy. No biliary ductal dilatation is present. Pancreas: Normal density, no abnormal calcifications or inflammatory process. Spleen: Normal. Kidneys: Normal size, contour and axis.No radiodense stones or obstructive uropathy. No masses seen. Adrenal glands: No mass is seen. Lymph nodes: Within normal limits. Abdominal Aorta: Abdominal portion non-dilated. Atherosclerotic calcification is present PELVIS: Bladder:Symmetric distention, no gross wall thickening. Bowel: The colon is unremarkable. There is an anastomosis in the small bowel in the pelvis just above the urinary bladder again seen. The stomach is incompletely distended limiting evaluation. Peritoneal cavity: There again seen 2 air-fluid collections in the pelvis. One located in the central lower abdomen deep to the midline it abuts the anterior abdominal wall. It is unchanged. There is also a fluid collection deep to the left anterior abdominal wall which appears stable. There is again seen a tiny amount of free air in the abdomen. It does not appear to be significantly changed compared to the prior examination. There is a drainage catheter again seen within the abdominal cavity. Reproductive organs: The uterus is absent. Bones: Within normal limits. There is a nerve stimulator device in place. Postsurgical changes are seen at the lumbosacral spine. Soft Tissues: There is an increase in the subcutaneous air in the anterior abdominal wall. There is also an increase in the infiltration of the subcutaneous fat. There is also now a skin defect and skin thickening to the right of midline. (Series 2, image 260). IMPRESSION: 1. Insert prior examination in the left anterior abdominal wall there has been an increase in the subcutaneous air, skin thickening suggesting a cellulitis, increased infiltration in the subcutaneous fat and a skin defect to the left of the midline. No focal fluid collection is seen to suggest an abscess. This may represent a developing cellulitis. The increase in subcutaneous air and skin defect are new and are worrisome. 2. Stable abdominal complex fluid collections which may represent intra- abdominal abscesses. 3. Stable tiny amount of pneumoperitoneum. 4. Findings were discussed with Imelda Buenrostro at 6:15 p.m. on 07/18/2024. Quality:SDOH Health Related Social Needs: No Data to Display PFSH All Active Problems (Updated 07/18/24 @ 20:44 by Imelda Buenrostro) Fever postop (Acute) Tachycardia (Acute) Chronic abdominal pain (Acute) Enterocutaneous fistula (Chronic) Hyperglycemia (Acute) 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 (Acute) Arthritis (Acute) Back pain (Acute) GERD (gastroesophageal reflux disease) (Chronic) Obesity (Chronic) Claustrophobia (Acute) Osteoporosis (Chronic) Headache (Acute) Asthma with COPD (chronic obstructive pulmonary disease) (Acute) Vitamin D deficiency (Acute) Corns and callosities (Acute) Cubital tunnel syndrome on left (Acute) Cubital tunnel syndrome on right (Acute) Trigger finger, left middle finger (Acute) Trigger finger, right middle finger (Acute) Left carpal tunnel syndrome (Acute) Right carpal tunnel syndrome (Acute) Medical History (Updated 07/18/24 @ 20:44 by Imelda Buenrostro) Hypokalemia Abdominal discomfort Screening for colon cancer Diabetes mellitus CAD (coronary artery disease) Parkinsons disease 02/03/23 pt has a DBS implanted for this RH Hypertension Hyperlipidemia Stenosis colon Osteoarthritis of left knee mild Small bowel obstruction Diverticulitis PTSD (post-traumatic stress disorder) Dermatitis Anxiety Petechial rash upper and lower extremities, chronic. Started in 2018. COPD (chronic obstructive pulmonary disease) Surgical History (Updated 07/09/24 @ 14:11 by Stacy Pires DO) Status post small bowel resection S/P exploratory laparotomy small bowel resection History of colonoscopy (~02/2024) History of colostomy reversal Social History Smoking/Tobacco Use Status: Former Tobacco Use Quit Date: 06/15/11 Smoking risk assessment performed?: Yes Alcohol Intake: never Drug use: Never Substance use type: does not use Housing: house Do you feel safe at home: Yes Do you feel safe in your relationship?: Yes Additional Social history: at side
[2024-07-18 17:21] LABS: Lactate 1.2 mmol/L (<or=2.0)
[2024-07-18] MEDS: metroNIDAZOLE 500 MG/100 ML BAG 100 MG IVPB (17:28)
[2024-07-18] MEDS: Lactated Ringers 1,000 ML 1000 ML IV ×2 (17:29→18:30)
[2024-07-18 17:30] LABS: Abs Immature Grans 0.13 10^3/uL (0.0-0.06); Absolute Basophil Count 0.07 10^3/uL (0.0-0.2); Absolute Eosinophil Count 0.04 10^3/uL (0.0-0.7); Absolute Lymphocyte Count 1.74 10^3/uL (1.2-3.4); Absolute Monocyte Count 1.54 10^3/uL (0.1-0.8); Absolute Neutrophil Count 8.53 10^3/uL (1.2-6.7); Basophils % 0.6 %; Eosinophils % 0.3 %; HCT 30.8 % (36.0-46.0); HGB 9.7 g/dL (11.2-15.7); Immature Grans % 1.1 %; Lymphocytes % 14.4 %; MCH 29.3 pg (27.0-33.0); MCHC 31.5 % (32.0-36.0); MCV 93 fL (80-95); MPV 9.8 fL (8.0-11.0); Monocytes % 12.8 %; Neutrophils % 70.8 %; Platelet Count 574 10^3/uL (130-400); RBC 3.31 10^6/uL (3.93-5.22); RDW 13.8 % (11.7-14.6); RDW-SD 46.9 fL; WBC 12.05 10^3/uL (4.4-10.8)
[2024-07-18 17:34] LABS: ESR 64 mm/hr (0-30)
--- NOTE | 2024-07-18 17:49 | DI.CT_ITS ---
Exam(s) CT ABDOMEN PELVIS WO EXAM: CT ABDOMEN PELVIS WO CLINICAL HISTORY: abd pain and fever s/p surgery. TECHNIQUE: Imaging Protocol: Axial computed tomography images with coronal and sagittal reformatted images were created and reviewed. COMPARISON: CT CT ABDOMEN PELVIS WO from 07/13/2024 FINDINGS: Lack of IV contrast does limit evaluation of the abdominal pelvic organs. ABDOMEN: Lung Bases: There is a calcified granuloma in the left lower lobe. Liver: There is diffuse decreased attenuation of the liver consistent with fatty infiltration. The l iver is mildly enlarged. No measurable mass. Gallbladder and biliary tract: The patient is status post cholecystectomy. No biliary ductal dilatat ion is present. Pancreas: Normal density, no abnormal calcifications or inflammatory process. Spleen: Normal. Kidneys: Normal size, contour and axis.No radiodense stones or obstructive uropathy. No masses seen. Adrenal glands: No mass is seen. Lymph nodes: Within normal limits. Abdominal Aorta: Abdominal portion non-dilated. Atherosclerotic calcification is present PELVIS: Bladder:Symmetric distention, no gross wall thickening. Bowel: The colon is unremarkable. There is an anastomosis in the small bowel in the pelvis just abov e the urinary bladder again seen. The stomach is incompletely distended limiting evaluation. Peritoneal cavity: There again seen 2 air-fluid collections in the pelvis. One located in the centra l lower abdomen deep to the midline it abuts the anterior abdominal wall. It is unchanged. There is also a fluid collection deep to the left anterior abdominal wall which appears stable. There is aga in seen a tiny amount of free air in the abdomen. It does not appear to be significantly changed com pared to the prior examination. There is a drainage catheter again seen within the abdominal cavity. Reproductive organs: The uterus is absent. Bones: Within normal limits. There is a nerve stimulator device in place. Postsurgical changes are s een at the lumbosacral spine. Soft Tissues: There is an increase in the subcutaneous air in the anterior abdominal wall. There is also an increase in the infiltration of the subcutaneous fat. There is also now a skin defect and sk in thickening to the right of midline. (Series 2, image 260). IMPRESSION: 1. Insert prior examination in the left anterior abdominal wall there has been an increase in the sub cutaneous air, skin thickening suggesting a cellulitis, increased infiltration in the subcutaneous fa t and a skin defect to the left of the midline. No focal fluid collection is seen to suggest an absc ess. This may represent a developing cellulitis. The increase in subcutaneous air and skin defect a re new and are worrisome. 2. Stable abdominal complex fluid collections which may represent intra-abdominal abscesses. 3. Stable tiny amount of pneumoperitoneum. 4. Findings were discussed with Imelda Buenrostro at 6:15 p.m. on 07/18/2024. RADIATION DOSE DELIVERED: 526.04mGy.cm Total DLP DATA REPOSITORY: All CT scans at this facility are submitted to the National Radiology Data Registry (NRDR) Dose Index Registry (DIR) with the [employer] ([employer]). RADIATION OPTIMIZATION: All CT scans at this facility use at least one of these dose optimization te chniques: automated exposure control; mA and/or kV adjustment per patient size (includes targeted exa ms where dose is matched to clinical indication); or iterative reconstruction.
[2024-07-18 17:50] LABS: ALT 27 U/L (14-59); AST 22 U/L (15-37); Albumin 2.6 g/dL (3.4-5.0); Alkaline Phosphatase 91 U/L (46-116); Anion Gap 11.1 mmol/L (3-11); BUN 17 mg/dL (7-18); Bilirubin, Total 0.81 mg/dL (0.2-1.0); C-Reactive Protein 10.78 mg/dL (<or=0.5); CO2 27.9 mmol/L (21.0-32.0); CREATININE 1.1 mg/dL (0.55-1.02); Calcium 8.7 mg/dL (8.5-10.1); Chloride 97 mmol/L (98-107); Estimated GFR 53.39 (mL/min/1.73m2); Glucose 181 mg/dL (74-106); Potassium 3.7 mmol/L (3.5-5.1); Sodium 136 mmol/L (136-145)
[2024-07-18 17:56] LABS: Diff Comment Agrees w/ Instrument; Polychromasia Present
[2024-07-18 18:12] LABS: Bilirubin Moderate (Negative); Blood Trace-intact (Negative); Clarity Clear (Clear); Glucose Negative (Negative); Ketones 40 mg/dL (Negative); Leukocyte Esterase Negative (Negative); Nitrite Negative (Negative); Specific Gravity >= 1.030 (1.005-1.025); pH 5.5 (5-8)
[2024-07-18 18:22] LABS: Bacteria Few HPF (Negative); C & S Indicated? No/Sq. Contamination; Casts Negative LPF (Negative); Crystals Negative HPF (Negative); Epithelial Cells Many HPF (Negative); Mucus Moderate (Negative); RBC 0-2 HPF (0-2); WBC 0-2 HPF (0-5)
[2024-07-18] MEDS: CIPROFLOXACIN 400 MG/200 ML BAG 200 MG IVPB (18:42)
[2024-07-18 20:04] LABS: COVID-19 PCR Negative (Negative); Influenza A PCR Negative (Negative); Influenza B PCR Negative (Negative); RSV PCR Negative (Negative)
[2024-07-18 20:06] LABS: Source Nasopharynx
[2024-07-18] MEDS: Ondansetron 4 MG/2 ML VIAL IVP (20:14)
[2024-07-18] MEDS: Lidocaine 1% Pres-Free 5 ML VIAL (20:45)
[2024-07-18] MEDS: HYDROmorphone 2 MG/ML SYR 1 MG IVP (20:46)
--- NOTE | 2024-07-18 21:24 | W.PM.HP.N ---
Date of service: 07/18/24 Time of Service: 21:24 Assessment and Plan Assessment and plan (1) Enterocutaneous fistula: Status: Chronic Assessment and plan: Patient with a known enterocutaneous fistula which originally had been well-controlled with a surgical drain, became uncontrolled and a second drain was placed on the left abdomen and that drain fell out. Note appears that she has leaked into the abdominal wall leading to cellulitis. As a temporary measure the patient agrees to proceed with a bedside I&D to establish some better drainage. She agrees to do this with a local anesthetic and she will also receive some IV Dilaudid just prior to the procedure. (2) Abdominal wall abscess: Status: Acute Assessment and plan: As above, the patient has an abdominal wall abscess for which I will try to get some better drainage tonight. This abscess does overlie the fluid collection in the peritoneal cavity. exploration and further drainage or debridement in the operating room should be considered and it is possible that the previous drain tract into the abdomen could be opened up a little bit. I will have to discuss this in the morning with Dr. Rizo who has been following her for weeks. Antibiotic coverage is difficult with her allergies, but the main treatment for her is to get control/drainage. I added clindamycin as a single agent for now. She received ciprofloxacin and Flagyl x 1 in the emergency room History of Present Illness Narrative: 73-year-old woman admitted in mid June for exploratory laparotomy, lysis of adhesions and enterectomy. Surgery was complicated by enterocutaneous fistula.. Patient had a long hospital course with multiple CT scans. In July 13, 2024 CT scan showed an undrained anterior fluid collection and apparently after that the patient was transferred to [facility] department for CT guided drain placement. The drain fell out the following day in the hospital. Patient was deemed stable and was discharged yesterday in the morning with her fistula continuing to drain through an intact surgical drain. Today she did not feel well, and nausea and vomiting and then noted fever to 102 Fahrenheit. She came to the emergency room where she had low-grade fever of 99, mildly elevated white blood cell count to 10,000, and tachycardia to 140. She was given ciprofloxacin and Flagyl. Repeat CT scan shows the persistent left anterior fluid collection, but in addition there is fluid and gas in the left anterior abdominal wall. The skin defect noted by the radiologist likely represents the drain site. The patient had not noticed the increased swelling of her abdominal wall but definitely felt more pain in that area, especially when she was spiking the fever. Review of Systems Constitutional Constitutional: Reports body ache(s), Reports difficulty sleeping, Reports fever(s), Reports malaise, Reports poor appetite, Reports weakness and Reports other (unsteady) Eyes Eyes: Denies diplopia ENT Ears, Nose, Mouth, and Throat: Reports dry mouth Cardiovascular Cardiovascular: Denies chest pain, Reports rapid heart rate (Unable to keep down metoprolol which has also been decreased from 100 ) and Denies dyspnea Respiratory Respiratory: Denies dyspnea Gastrointestinal Gastrointestinal: Reports as per HPI and Reports constipation Genitourinary Genitourinary: Denies difficulty voiding Musculoskeletal Musculoskeletal: Reports arthralgias Neurologic Neurologic: Reports abnormal movements (History of Parkinson's-like movement) and Reports weakness Psychiatric Psychiatric: Reports anxiety Endocrine Endocrine: Reports other (Currently poor control on diabetes) Hematologic/Lymphatic Hematologic/Lymphatic: Denies easy bleeding and Denies easy bruising Comments: No history of DVT Allergic/Immunologic Allergic/Immunologic: Reports GI upset with certain foods PFSH All Active Problems (Updated 07/18/24 @ 21:41 by Randee Delarosa MD) Abdominal wall abscess (Acute) Fever postop (Acute) Tachycardia (Acute) Chronic abdominal pain (Acute) Enterocutaneous fistula (Chronic) Hyperglycemia (Acute) 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 (Acute) Arthritis (Acute) Back pain (Acute) GERD (gastroesophageal reflux disease) (Chronic) Obesity (Chronic) Claustrophobia (Acute) Osteoporosis (Chronic) Headache (Acute) Asthma with COPD (chronic obstructive pulmonary disease) (Acute) Vitamin D deficiency (Acute) Corns and callosities (Acute) Cubital tunnel syndrome on left (Acute) Cubital tunnel syndrome on right (Acute) Trigger finger, left middle finger (Acute) Trigger finger, right middle finger (Acute) Left carpal tunnel syndrome (Acute) Right carpal tunnel syndrome (Acute) Medical History Hypokalemia Abdominal discomfort Screening for colon cancer Diabetes mellitus CAD (coronary artery disease) Parkinsons disease 02/03/23 pt has a DBS implanted for this RH Hypertension Hyperlipidemia Stenosis colon Osteoarthritis of left knee mild Small bowel obstruction Diverticulitis PTSD (post-traumatic stress disorder) Dermatitis Anxiety Petechial rash upper and lower extremities, chronic. Started in 2018. COPD (chronic obstructive pulmonary disease) Surgical History Status post small bowel resection S/P exploratory laparotomy small bowel resection History of colonoscopy (~02/2024) History of colostomy reversal Social History Smoking/Tobacco Use Status: Former Tobacco Use Quit Date: 06/15/11 Smoking risk assessment performed?: Yes Alcohol Intake: never Drug use: Never Substance use type: does not use Housing: house Do you feel safe at home: Yes Do you feel safe in your relationship?: Yes Additional Social history: at side Meds Allergies and Home Medications Allergies Allergy/AdvReac Type Severity Reaction Status Date / Time alprazolam (From Xanax) Allergy Severe hives Verified 06/29/24 06:43 codeine Allergy Severe throat Verified 06/29/24 06:43 swells shut meperidine (From Demerol) Allergy Severe Hives Verified 06/29/24 06:43 Penicillins Allergy Severe throat Verified 06/29/24 06:43 swells shut butorphanol (From Stadol) Allergy Intermediate Anaphylaxis Verified 06/29/24 06:43 Iodinated Contrast Media Allergy Intermediate rash, Verified 06/29/24 06:43 nausea, vomiting ketorolac (From Toradol) AdvReac Intermediate Nausea Verified 06/29/24 06:43 IV Contrast Allergy Severe Skin Rash Uncoded 06/29/24 06:43 Home Medications ?Medication ?Instructions ?Recorded ?Confirmed ?Type Docusate Sodium 200 mg PO HS 04/07/22 07/18/24 History albuterol sulfate 90 mcg/actuation 2 puff inhalation Q6H PRN 04/07/22 07/18/24 History aerosol inhaler amlodipine 10 mg tablet 10 mg PO DAILY 04/07/22 07/18/24 History aspirin 81 mg tablet,delayed 81 mg PO DAILY 04/07/22 07/18/24 History release isosorbide mononitrate 60 mg 60 mg PO DAILY 04/07/22 07/18/24 History tablet,extended release 24 hr nitroglycerin 0.4 mg sublingual 0.4 mg sublingual Q5M PRN 04/07/22 07/18/24 History tablet omeprazole 20 mg capsule,delayed 20 mg PO BID 04/07/22 07/18/24 History release hydroxyzine HCl 25 mg tablet 25 mg PO TID PRN 04/21/22 07/18/24 History metformin 1,000 mg tablet 1,000 mg PO BID 04/21/22 07/18/24 History levalbuterol tartrate 45 2 inh inhalation Q6H 07/06/23 07/18/24 History mcg/actuation aerosol inhaler atorvastatin 20 mg tablet 20 mg PO DAILY 01/27/24 07/18/24 History famotidine 40 mg tablet 40 mg PO DAILY 01/27/24 07/18/24 History fluticasone furoate 100 1 inh inhalation DAILY 01/27/24 07/18/24 History mcg-vilanterol 25 mcg/dose inhalation powder (Breo Ellipta) trazodone 100 mg tablet 100 mg PO QHS PRN 01/27/24 07/18/24 History losartan 100 mg tablet 100 mg PO DAILY 03/01/24 07/18/24 History hydromorphone 2 mg tablet 1 mg (1/2 x 2 mg) PO Q4H PRN PRN 05/05/24 07/18/24 Rx #16 tabs metoprolol succinate 50 mg 50 mg PO DAILY #90 tabs 05/05/24 07/18/24 Rx tablet,extended release 24 hr diphenhydramine HCl 25 mg capsule 25 mg PO QHS 05/18/24 07/18/24 History (Allergy (diphenhydramine)) metronidazole 500 mg tablet 500 mg PO .COMPLEX #8 tabs 05/18/24 07/18/24 Rx neomycin 500 mg tablet 500 mg PO .COMPLEX #8 tabs 05/18/24 07/18/24 Rx semaglutide 0.25 mg or 0.5 mg (2 0.5 mg subcut QWEEK 05/18/24 07/18/24 History mg/3 mL) subcutaneous pen injector (Ozempic) sennosides 15 mg chewable tablet 15 mg PO BID 05/18/24 07/18/24 History (Ex-Lax (sennosides)) ondansetron HCl 8 mg tablet 8 mg PO Q12H #14 tabs 07/18/24 07/18/24 Rx Exam Const General: cooperative, in distress and anxious Nutritional Appearance: obese Orientation: alert and oriented x3 HENMT Head: normal to inspection Face and sinus: dry mucous membranes Mouth: other (Edentulous) Neck Neck: normal visual inspection and supple Resp Effort & Inspection: normal respiratory effort and able to speak in complete sentences Auscultation: clear to auscultation bilaterally Cardio Rate: tachycardic Rhythm: regular rhythm GI Inspection: obesity Palpation: other (Left lower abdominal wall dressing is removed, there is bilious staining) Other: Diffuse induration and erythema of the left abdominal wall. Palpation is very tender but does lead to increased drainage from the pinpoint opening. Induration and some erythema extends to the midline wound. Right lower abdominal drain is intact with some drainage coming around the drain but most going through the drain. The upper abdomen is soft Skin General skin exam: no rashes or lesions noted Neuro General: patient oriented x3 and no focal motor deficits Extrem General: normal to inspection and no pedal edema Psych Mood: anxious mood Results Imaging Abdomen CT scan report/results: report reviewed and image reviewed Labs 07/18/24 17:00 07/18/24 17:00 Labs: Laboratory Results - last 24 hr 07/18/24 07/18/24 07/18/24 17:00 18:05 19:10 WBC 12.05 H RBC 3.31 L Hgb 9.7 L Hct 30.8 L MCV 93 MCH 29.3 MCHC 31.5 L RDW 13.8 Plt Count 574 H MPV 9.8 Immature Gran % 1.1 Neutrophils % 70.8 Lymphocytes % 14.4 Monocytes % 12.8 Eosinophils % 0.3 Basophils % 0.6 Nucleated RBC % 0.0 Absolute Neutrophils 8.53 H Absolute Lymphocytes 1.74 Absolute Monocytes 1.54 H Absolute Eosinophils 0.04 Absolute Basophils 0.07 RBC Morphology See Below Polychromasia Present ESR 64 H VBG Lactate 1.2 Sodium 136 Potassium 3.7 Chloride 97 L Carbon Dioxide 27.9 Anion Gap 11.1 H BUN 17 Creatinine 1.1 H Est GFR (CKD-EPI 2020) 53.39 Glucose 181 H Calcium 8.7 Total Bilirubin 0.81 AST 22 ALT 27 Alkaline Phosphatase 91 C-Reactive Protein 10.78 H Total Protein 8.0 Albumin 2.6 L Urine Color [place] Urine Clarity Clear Urine pH 5.5 Ur Specific [place] >= 1.030 H Urine Protein 100 H Urine Ketones 40 H Urine Blood Trace-intact H Urine Nitrite Negative Urine Bilirubin Moderate H Urine Urobilinogen 2.0 H Ur Leukocyte Esterase Negative Urine RBC 0-2 Urine WBC 0-2 Ur Epithelial Cells Many Urine Crystals Negative Urine Bacteria Few Urine Casts Negative Urine Mucus Moderate Ur Culture Indicated? No/Sq. Contamination Urine Glucose Negative COVID-19 Source Nasopharynx SARS-CoV-2 (PCR) Negative Influenza Type A (PCR) Negative Influenza Type B (PCR) Negative RSV (PCR) Negative Last Vital Signs Temp 37.1 C 07/18/24 19:24 Pulse 120 H 07/18/24 19:00 Resp 24 07/18/24 20:30 BP 163/58 H 07/18/24 18:46 Pulse Ox 94 07/18/24 19:00 Procedures Abscess I/D Site: abdomen (Old left abdominal wall drain site) Sedation/analgesia: other (Single dose of IV Dilaudid) Anesthetic used: lidocaine 1% Technique: incised with #11 blade (Then probed with culture sticks and cotton-tipped swabs) Amount of fluid (mL): 30 Packing used?: none (Bulky gauze dressing was placed with an ABD pad) Time Spent Time spent with Patient: >75 minutes Time was spent: preparing to see the patient(eg.review tests), obtaining and/or reviewing separately otained hiistory, ordering medications,tests, procedures, indepentently interpreting results and counseling the patient
[2024-07-18] MEDS: traZODone 100 MG TAB PO (23:20)
[2024-07-18] MEDS: Enoxaparin 40 MG/0.4 ML SYR SC (23:20)
[2024-07-18] MEDS: Normal Saline Flush 10 ML SYR IVP (23:21)
[2024-07-18] MEDS: Lactated Ringers 1,000 ML 75 ML IV (23:22)
[2024-07-19] MEDS: CLINDAMYCIN 900 MG/50 ML BAG 50 MG IVPB ×4 (00:48→23:05)
[2024-07-19 01:10] VITALS: TEMP 37.1
--- NOTE | 2024-07-19 01:21 | W.PC.ACHO ---
Registration Status: Primary Language: Preferred Language: ED Information & Data Chief Complaint Abd Prob 07/18/24 17:15 Chief Complaint Abd Prob 07/18/24 16:47 Triage Note Pt arrives to ED c/o N/V + 07/18/24 16:23 generalized abd pain. Pt had extensive abd surgery on here at [facility] and started feeling unwell last night. Pt was just recently discharged from the hospital . Medical / Surgical History (Last Reviewed 07/18/24 @ 21:30 by Randee Delarosa MD) Hypokalemia Abdominal discomfort Screening for colon cancer Diabetes mellitus CAD (coronary artery disease) Parkinsons disease Hypertension Hyperlipidemia Stenosis colon Osteoarthritis of left knee Small bowel obstruction Diverticulitis PTSD (post-traumatic stress disorder) Dermatitis Anxiety Petechial rash COPD (chronic obstructive pulmonary disease) (Last Reviewed 07/18/24 @ 21:30 by Randee Delarosa MD) Status post small bowel resection S/P exploratory laparotomy History of colonoscopy (~02/2024) History of colostomy reversal Most Recent Vital Signs Temperature 37.9 C H 07/18/24 23:47 Temperature Source Oral 07/18/24 19:24 Pulse 135 H 07/18/24 23:47 Pulse Rhythm Regular 07/18/24 23:03 Pulse 130 H 07/18/24 22:31 Respiratory Rate 16 07/18/24 23:47 Respiratory Effort Normal, Non-Labored 07/18/24 23:03 Respiratory Depth Normal 07/18/24 23:03 Respiratory Pattern Normal 07/18/24 23:03 Blood Pressure 169/57 H 07/18/24 23:47 Blood Pressure Mean 120 07/18/24 22:31 Pulse Oximetry 93 07/18/24 23:47 Oxygen Delivery Method Room Air 07/18/24 23:47 Oxygen Flow Rate 0 07/18/24 23:47 Pain Level 2 07/18/24 23:47 Allergies alprazolam (From Xanax) Allergy (Severe, Verified 06/29/24 06:43) hives codeine Allergy (Severe, Verified 06/29/24 06:43) throat swells shut meperidine (From Demerol) Allergy (Severe, Verified 06/29/24 06:43) Hives pt. denies Penicillins Allergy (Severe, Verified 06/29/24 06:43) throat swells shut butorphanol (From Stadol) Allergy (Intermediate, Verified 06/29/24 06:43) Anaphylaxis Iodinated Contrast Media Allergy (Intermediate, Verified 06/29/24 06:43) rash, nausea, vomiting ketorolac (From Toradol) Adverse Reaction (Intermediate, Verified 06/29/24 06:43) Nausea IV Contrast Allergy (Severe, Uncoded 06/29/24 06:43) Skin Rash Precautions Isolation Standard precaution 07/18/24 17:15 Active Medications Generic Name Dose Route Start Last Admin Trade Name Freq PRN Reason Stop Dose Admin Atorvastatin Calcium 20 mg 07/18/24 23:00 07/18/24 23:41 Atorvastatin 20 Mg Tab PO Not Given QPM DAMEON Enoxaparin Sodium 40 mg 07/18/24 23:00 07/18/24 23:20 Enoxaparin 40 Mg/0.4 Ml Syr SC 40 mg Q24H DAMEON Administration Ringer's Solution 1,000 mls @ 75 mls/hr 07/18/24 22:54 07/18/24 23:22 IV 75 mls/hr INFUSION DAMEON Administration Clindamycin Phosphate/Dextrose 900 mg in 50 mls @ 50 mls/hr 07/19/24 00:00 07/19/24 00:48 Cleocin In D5w IVPB 50 mls/hr Q8H DAMEON Administration Sodium Chloride 0 ml 07/19/24 08:30 07/18/24 23:21 Normal Saline Flush 10 Ml Syr IVP 10 ml BID DAMEON Administration Trazodone HCl 100 mg 07/18/24 22:54 07/18/24 23:20 Trazodone 100 Mg Tab PO 100 mg HS PRN PRN Administration IV IV Catheter Type [Left Forearm Peripheral IV ] IV Catheter Gauge [Left 18 Forearm] Diet Orders Category Date Time Status Regular/Normal [DIET] Nutrition 07/18/24 Dinner Active Diagnostics 07/19/24 07/18/24 07/18/24 Range/Units 05:35 19:10 18:05 WBC Pending (4.4-10.8) 10^3/uL RBC Pending (3.93-5.22) 10^6/uL Hgb Pending (11.2-15.7) g/dL Hct Pending (36.0-46.0) % MCV Pending (80-95) fL MCH Pending (27.0-33.0) pg MCHC Pending (32.0-36.0) % RDW Pending (11.7-14.6) % Plt Count Pending (130-400) 10^3/uL MPV Pending (8.0-11.0) fL Immature Gran % Pending % Neutrophils % Pending % Lymphocytes % Pending % Monocytes % Pending % Eosinophils % Pending % Basophils % Pending % Nucleated RBC % (0.0-0.3) % Absolute Neutrophils Pending (1.2-6.7) 10^3/uL Absolute Lymphocytes Pending (1.2-3.4) 10^3/uL Absolute Monocytes Pending (0.1-0.8) 10^3/uL Absolute Eosinophils Pending (0.0-0.7) 10^3/uL Absolute Basophils Pending (0.0-0.2) 10^3/uL RBC Morphology Polychromasia ESR (0-30) mm/hr VBG Lactate (<or=2.0) mmol/L Sodium Pending (136-145) mmol/L Potassium Pending (3.5-5.1) mmol/L Chloride Pending (98-107) mmol/L Carbon Dioxide Pending (21.0-32.0) mmol/L Anion Gap Pending (3-11) mmol/L BUN Pending (7-18) mg/dL Creatinine Pending (0.55-1.02) mg/dL Est GFR (CKD-EPI 2020) Pending (mL/min/1.73m2) Glucose Pending (74-106) mg/dL Calcium Pending (8.5-10.1) mg/dL Total Bilirubin (0.2-1.0) mg/dL AST (15-37) U/L ALT (14-59) U/L Alkaline Phosphatase (46-116) U/L C-Reactive Protein (<or=0.5) mg/dL Total Protein (6.4-8.2) g/dL Albumin (3.4-5.0) g/dL Urine Color [place] (Yellow) Urine Clarity Clear (Clear) Urine pH 5.5 (5-8) Ur Specific [place] >= 1.030 H (1.005-1.025) Urine Protein 100 H (Neg-Trace) mg/dL Urine Ketones 40 H (Negative) mg/dL Urine Blood Trace-intact H (Negative) Urine Nitrite Negative (Negative) Urine Bilirubin Moderate H (Negative) Urine Urobilinogen 2.0 H (Up to 0.2) mg/dL Ur Leukocyte Esterase Negative (Negative) Urine RBC 0-2 (0-2) HPF Urine WBC 0-2 (0-5) HPF Ur Epithelial Cells Many (Negative) HPF Urine Crystals Negative (Negative) HPF Urine Bacteria Few (Negative) HPF Urine Casts Negative (Negative) LPF Urine Mucus Moderate (Negative) Ur Culture Indicated? No/Sq. Contamination Urine Glucose Negative (Negative) mg/dL COVID-19 Source Nasopharynx SARS-CoV-2 (PCR) Negative (Negative) Influenza Type A (PCR) Negative (Negative) Influenza Type B (PCR) Negative (Negative) RSV (PCR) Negative (Negative) 07/18/24 Range/Units 17:00 WBC 12.05 H (4.4-10.8) 10^3/uL RBC 3.31 L (3.93-5.22) 10^6/uL Hgb 9.7 L (11.2-15.7) g/dL Hct 30.8 L (36.0-46.0) % MCV 93 (80-95) fL MCH 29.3 (27.0-33.0) pg MCHC 31.5 L (32.0-36.0) % RDW 13.8 (11.7-14.6) % Plt Count 574 H (130-400) 10^3/uL MPV 9.8 (8.0-11.0) fL Immature Gran % 1.1 % Neutrophils % 70.8 % Lymphocytes % 14.4 % Monocytes % 12.8 % Eosinophils % 0.3 % Basophils % 0.6 % Nucleated RBC % 0.0 (0.0-0.3) % Absolute Neutrophils 8.53 H (1.2-6.7) 10^3/uL Absolute Lymphocytes 1.74 (1.2-3.4) 10^3/uL Absolute Monocytes 1.54 H (0.1-0.8) 10^3/uL Absolute Eosinophils 0.04 (0.0-0.7) 10^3/uL Absolute Basophils 0.07 (0.0-0.2) 10^3/uL RBC Morphology See Below Polychromasia Present ESR 64 H (0-30) mm/hr VBG Lactate 1.2 (<or=2.0) mmol/L Sodium 136 (136-145) mmol/L Potassium 3.7 (3.5-5.1) mmol/L Chloride 97 L (98-107) mmol/L Carbon Dioxide 27.9 (21.0-32.0) mmol/L Anion Gap 11.1 H (3-11) mmol/L BUN 17 (7-18) mg/dL Creatinine 1.1 H (0.55-1.02) mg/dL Est GFR (CKD-EPI 2020) 53.39 (mL/min/1.73m2) Glucose 181 H (74-106) mg/dL Calcium 8.7 (8.5-10.1) mg/dL Total Bilirubin 0.81 (0.2-1.0) mg/dL AST 22 (15-37) U/L ALT 27 (14-59) U/L Alkaline Phosphatase 91 (46-116) U/L C-Reactive Protein 10.78 H (<or=0.5) mg/dL Total Protein 8.0 (6.4-8.2) g/dL Albumin 2.6 L (3.4-5.0) g/dL Urine Color (Yellow) Urine Clarity (Clear) Urine pH (5-8) Ur Specific [place] (1.005-1.025) Urine Protein (Neg-Trace) mg/dL Urine Ketones (Negative) mg/dL Urine Blood (Negative) Urine Nitrite (Negative) Urine Bilirubin (Negative) Urine Urobilinogen (Up to 0.2) mg/dL Ur Leukocyte Esterase (Negative) Urine RBC (0-2) HPF Urine WBC (0-5) HPF Ur Epithelial Cells (Negative) HPF Urine Crystals (Negative) HPF Urine Bacteria (Negative) HPF Urine Casts (Negative) LPF Urine Mucus (Negative) Ur Culture Indicated? Urine Glucose (Negative) mg/dL COVID-19 Source SARS-CoV-2 (PCR) (Negative) Influenza Type A (PCR) (Negative) Influenza Type B (PCR) (Negative) RSV (PCR) (Negative) 07/18/24 21:00 Abscess Culture - Pending Abdomen Gram Stain - Final 07/18/24 17:24 Blood Culture - Pending Blood 07/18/24 17:00 Blood Culture - Pending Blood [id number] Documentation Fingerstick Glucose Start: 07/18/24 22:54 Freq: .Q6H Status: Active Protocol: Activity Type Activity Date Activity User E-sign Co-sign Detail Recorded Client Recorded Date Recorded By Document 07/18/24 23:06 BKG DAEMON(3) [id number] 07/18/24 23:07 BKG DAEMON(4) Intake and Output - 24 Hour Total 07/18/24 16:21 thru 07/19/24 00:12 Intake Total 2410 Output Total 275 Balance 2135 Weight 76.345 kg Intake: IV 2310 Oral 100 Output: Urine 75 Emesis 25 Other 175 Other: Urine Color Straw Urine Appearance Clear Urine Odor None Emesis Description Retching Clear/Water Falls Risk Assessment History of Falls No History 07/18/24 23:03 Contributing Factors No Factors 07/18/24 23:03 Ambulatory Aids Uses ambulatory device 07/18/24 23:03 Tubes/Lines W/no contributing factors 07/18/24 23:03 Gait Evaluation No gait disturbance 07/18/24 23:03 Cognition No cognitive impairment 07/18/24 23:03 Fall Total Score 25 07/18/24 23:03 Level of Risk Moderate Risk 07/18/24 23:03 Problems (Last Reviewed 07/18/24 @ 21:30 by Randee Delarosa MD) Abdominal wall abscess (Acute) Fever postop (Acute) Enterocutaneous fistula (Chronic) v v v v v v v v v Sending and/or Receiving Nurses: Please use comment section below to note any information pertinent to the patient hand-off not included above. Information / Comments: had an ostomy, had it reversed, then bowel resection. Appears to have more issues since. redness on the left side. did a washout, bedside I&D with controlled bleeding. new dressing has been placed C/D/I no label on it yet. bili drain bag to RLQ, been needing to burp the bag mostly. drainage has been bile and stool. got blood cultures done, abx (cipro, flagyl), 1mg dilauded before I&D, minimal pain since. got 4 mg zofran, no emesis since afebrile, tachy, no O2 requirement, bp 156/60 18g LAC - flushing makes her nauseas A&Ox4, calls appropriately SBA skin is good other than the incision areas/drains Report received from: ANGIE cruz, @ [id number]
[2024-07-19] MEDS: metroNIDAZOLE 500 MG/100 ML BAG 100 MG IVPB ×3 (02:01→18:31)
[2024-07-19] MEDS: Ondansetron 4 MG/2 ML VIAL IVP ×2 (06:01→14:32)
[2024-07-19] MEDS: Normal Saline Flush 10 ML SYR IVP ×3 (06:02→14:32)
[2024-07-19 07:11] LABS: Abs Immature Grans 0.11 10^3/uL (0.0-0.06); Absolute Basophil Count 0.08 10^3/uL (0.0-0.2); Absolute Eosinophil Count 0.05 10^3/uL (0.0-0.7); Absolute Lymphocyte Count 1.53 10^3/uL (1.2-3.4); Absolute Monocyte Count 1.31 10^3/uL (0.1-0.8); Absolute Neutrophil Count 6.89 10^3/uL (1.2-6.7); Basophils % 0.8 %; Eosinophils % 0.5 %; HCT 26.7 % (36.0-46.0); HGB 8.5 g/dL (11.2-15.7); Immature Grans % 1.1 %; Lymphocytes % 15.3 %; MCH 29.5 pg (27.0-33.0); MCHC 31.8 % (32.0-36.0); MCV 93 fL (80-95); Monocytes % 13.1 %; Neutrophils % 69.2 %; Platelet Count 456 10^3/uL (130-400); RBC 2.88 10^6/uL (3.93-5.22); RDW 13.7 % (11.7-14.6); RDW-SD 46.7 fL; WBC 9.97 10^3/uL (4.4-10.8)
[2024-07-19 07:33] LABS: Anion Gap 6.6 mmol/L (3-11); BUN 12 mg/dL (7-18); CO2 29.4 mmol/L (21.0-32.0); CREATININE 0.8 mg/dL (0.55-1.02); Chloride 101 mmol/L (98-107); Estimated GFR 78.24 (mL/min/1.73m2); Glucose 165 mg/dL (74-106); Potassium 3.6 mmol/L (3.5-5.1); Sodium 137 mmol/L (136-145)
[2024-07-19] MEDS: HYDROmorphone 2 MG TAB 1 MG PO ×3 (07:41→19:37)
[2024-07-19 08:16] VITALS: BP 145/54; PULSE 118; RESP 15; TEMP 36.6; O2SAT 93
[2024-07-19] MEDS: Budesonide/Formoterol 80/4.5 6.9 GM 60 PUFF INH IH ×2 (08:20→20:48)
[2024-07-19] MEDS: Insulin Aspart 300 UNITS/3 ML PEN SC ×3 (08:32→17:52)
--- NOTE | 2024-07-19 09:17 | PDOC.CMIN ---
Date of service: 07/19/24 Time of Service: 09:17 Care Management Initial Assmt Initial Assessment Reason for Hospitalization: abdominal wall abscess Functional Status/Living Situation Patient Presentation: Bubba was sitting up in bed when CM met with her. She was readmitted yesterday with an abdominal wall abscess and stated she is in a lot of pain. It sounds like her drain fell out before discharge last week and the drainage leaked into her abdominal wall and developed into an abscess with cellulitis. Last evening the surgeon did a bedside I&D and plans to take her to surgery tomorrow for a more extensive washout. Bubba admitted to being very discouraged and just wants to go home. Her understanding of her plan of care is that she will go to the OR tomorrow and have another drain placed after the wound is cleaned out. She will likely remain hospitalized for a day or so to ensure there are no complications then she can go home again with a resumption of her home health nursing services.. Town of Residence: [place] Resides with: Spouse Significant Other/Family: Local Employment Status: Retired Instrumental Activities of Daily Living (ADLs): Independent Medications Medication Management: No Issues/Barriers identified Advance Directives Advance Directives: Do you have an Advance Directive: N 02/29/24 01:50 AD On File at [facility]: N 02/28/24 21:44 Date Asked 07/18/24 07/18/24 16:32 AD Date Reviewed COLST On File at [facility] COLST Date Scanned Code Status Resuscitation Status Full Code Portal Pt does not currently have a portal and education provided: No Insurance Coverage/Financial Issues Insurance: BC/BS Medicare A&B Care Team Visit Care Team Role Provider Type Nikolas Matos Primary Care Provider NON-[facility] STAFF PHYSICIAN Imelda Buenrostro Emergency Provider NURSE PRACTITIONER Randee Delarosa MD Admit Provider [facility] STAFF PHYSICIAN Attending Provider Discharge Potential Discharge Needs: PCP F/U Appt and Surgical F/U Appt Anticipated Barriers to Discharge: Medical Status Patient/Family Education Needs: Review discharge instructions, discuss Ask Me Three Transportation: Private vehicle Plan: Anticipate Bubba will be discharged home with a resumption of home health services when medically stable. She will follow up with her PCP and plan of care and transport with her . CM will follow. Social Determinants of Health Screening Will the Patient Participate in the Screening?: Declined to provide PFSH All Active Problems (Updated 07/18/24 @ 21:41 by Randee Delarosa MD) Abdominal wall abscess (Acute) Fever postop (Acute) Tachycardia (Acute) Chronic abdominal pain (Acute) Enterocutaneous fistula (Chronic) Hyperglycemia (Acute) 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 (Acute) Arthritis (Acute) Back pain (Acute) GERD (gastroesophageal reflux disease) (Chronic) Obesity (Chronic) Claustrophobia (Acute) Osteoporosis (Chronic) Headache (Acute) Asthma with COPD (chronic obstructive pulmonary disease) (Acute) Vitamin D deficiency (Acute) Corns and callosities (Acute) Cubital tunnel syndrome on left (Acute) Cubital tunnel syndrome on right (Acute) Trigger finger, left middle finger (Acute) Trigger finger, right middle finger (Acute) Left carpal tunnel syndrome (Acute) Right carpal tunnel syndrome (Acute) Medical History Hypokalemia Abdominal discomfort Screening for colon cancer Diabetes mellitus CAD (coronary artery disease) Parkinsons disease 02/03/23 pt has a DBS implanted for this RH Hypertension Hyperlipidemia Stenosis colon Osteoarthritis of left knee mild Small bowel obstruction Diverticulitis PTSD (post-traumatic stress disorder) Dermatitis Anxiety Petechial rash upper and lower extremities, chronic. Started in 2018. COPD (chronic obstructive pulmonary disease) Surgical History Status post small bowel resection S/P exploratory laparotomy small bowel resection History of colonoscopy (~02/2024) History of colostomy reversal Social History Smoking/Tobacco Use Status: Former Tobacco Use Quit Date: 06/15/11 Smoking risk assessment performed?: Yes Alcohol Intake: never Drug use: Never Substance use type: does not use Housing: house Do you feel safe at home: Yes Do you feel safe in your relationship?: Yes Additional Social history: at side
[2024-07-19] MEDS: Lactated Ringers 1,000 ML 75 ML IV (12:57)
[2024-07-19 15:37] VITALS: BP 150/59; PULSE 112; RESP 14; TEMP 36.7; O2SAT 93
[2024-07-19] MEDS: Metoprolol CR 50 MG TABCR PO (16:33)
[2024-07-19] MEDS: amLODIPine 10 MG TAB PO (16:34)
[2024-07-19] MEDS: Famotidine 20 MG TAB PO (16:35)
[2024-07-19] MEDS: Losartan 50 MG TAB 100 MG PO (16:35)
[2024-07-19] MEDS: Isosorbide Mononitrate 60 MG TABCR PO (16:36)
[2024-07-19 19:54] VITALS: BP 114/58; PULSE 108; RESP 16; TEMP 37.1; O2SAT 94
[2024-07-19] MEDS: traZODone 100 MG TAB PO (19:58)
--- NOTE | 2024-07-19 19:58 | W.PM.PROGNOT ---
Date of Service Date of service: 07/20/24 Time of Service: 20:23 Assessment and Plan Assessment and plan (1) Abdominal wall abscess: Status: Acute Assessment and plan: Although her fevers have certainly improved, and her overall physiology is better than when she came to the emergency department, she is still quite tender of the left lower quadrant, and I suspect this would benefit from further drainage. I suspect this is all secondary to soft tissue seeding from the previously placed IR drain, and I am optimistic that if we can get it further drained, we can minimize any surrounding soft tissue damage, and further improve drainage of the peritoneal cavity. I do not think she tolerate this at the bedside today, so I suggested doing it in the operating room tomorrow with some sedation and anesthesia. Subjective Subjective Interval history since last seen: Kae continues to complain of some left lower quadrant abdominal pain that seems to be a little bit better compared to what she was feeling last night. Although the incision and drainage was painful, she does think that that has helped a bit. She is more hungry today. Exam GI Other: Her abdomen is soft, and she still quite tender over the left lower quadrant. There is not much erythema. There is some purulent discharge from the wound. Objective Last Vital Signs Temp 98.8 F 07/19/24 19:54 Pulse 108 H 07/19/24 19:54 Resp 16 07/19/24 19:54 BP 114/58 L 07/19/24 19:54 Pulse Ox 94 07/19/24 19:54 Laboratory Results - last 24 hr 07/18/24 07/19/24 19:10 06:02 WBC 9.97 RBC 2.88 L Hgb 8.5 L Hct 26.7 L MCV 93 MCH 29.5 MCHC 31.8 L RDW 13.7 Plt Count 456 H MPV 10.0 Immature Gran % 1.1 Neutrophils % 69.2 Lymphocytes % 15.3 Monocytes % 13.1 Eosinophils % 0.5 Basophils % 0.8 Nucleated RBC % 0.0 Absolute Neutrophils 6.89 H Absolute Lymphocytes 1.53 Absolute Monocytes 1.31 H Absolute Eosinophils 0.05 Absolute Basophils 0.08 Sodium 137 Potassium 3.6 Chloride 101 Carbon Dioxide 29.4 Anion Gap 6.6 BUN 12 Creatinine 0.8 Est GFR (CKD-EPI 2020) 78.24 Glucose 165 H Calcium 8.0 L COVID-19 Source Nasopharynx SARS-CoV-2 (PCR) Negative Influenza Type A (PCR) Negative Influenza Type B (PCR) Negative RSV (PCR) Negative Time Spent with Patient Time Spent with Patient: 25-34 minutes Time was spent: preparing to see the patient(eg.review tests), indepentently interpreting results and counseling the patient
[2024-07-19] MEDS: Omeprazole 20 MG CAPCR PO (19:59)
[2024-07-19] MEDS: Atorvastatin 20 MG TAB PO (19:59)
[2024-07-19 20:06] VITALS: BP 119/48; PULSE 107; RESP 16; O2SAT 92
[2024-07-19] MEDS: Enoxaparin 40 MG/0.4 ML SYR SC (23:07)
[2024-07-20] VITALS (8 sets, daily range): BP systolic 118–132; BP diastolic 52–63; PULSE 95–119; RESP 18–19; TEMP 36.4–36.8; O2SAT 93–96; BMI 32.8
[2024-07-20] MEDS: metroNIDAZOLE 500 MG/100 ML BAG 100 MG IVPB ×2 (02:02→12:05)
[2024-07-20] MEDS: HYDROmorphone 2 MG TAB 1 MG PO ×4 (05:39→22:22)
[2024-07-20] MEDS: Ondansetron 4 MG/2 ML VIAL IVP ×2 (05:39→22:21)
[2024-07-20] MEDS: Normal Saline Flush 10 ML SYR IVP (05:39)
[2024-07-20] MEDS: Lactated Ringers 1,000 ML 75 ML IV ×2 (05:45→20:53)
[2024-07-20 07:29] LABS: HCT 22.7 % (36.0-46.0); HGB 7.3 g/dL (11.2-15.7); MCH 29.3 pg (27.0-33.0); MCHC 32.2 % (32.0-36.0); MCV 91 fL (80-95); MPV 10.5 fL (8.0-11.0); Platelet Count 337 10^3/uL (130-400); RBC 2.49 10^6/uL (3.93-5.22); RDW 14.1 % (11.7-14.6); RDW-SD 46.7 fL; WBC 8.75 10^3/uL (4.4-10.8)
[2024-07-20] MEDS: Budesonide/Formoterol 80/4.5 6.9 GM 60 PUFF INH IH ×2 (08:14→20:14)
--- NOTE | 2024-07-20 08:37 | PGE_ITS ---
Date of Service Date of service: 07/20/24 Time of Service: 08:37 Assessment and Plan Assessment and plan (1) Abdominal wall abscess: Status: Acute Assessment and plan: We reviewed the plan for washout and debridement of the left lower quadrant superficial skin site infection. I explained that I will attempt to find the previous IR drain tract, and recannulate this if possible. At the very least, I will place a drain at the base of this wound, and debride any type of compromised tissue in an effort to optimize healing of this area. Subjective Subjective Interval history since last seen: Dave is quite anxious about the wound exploration today, but otherwise she f eels pretty good. Pain has been well-controlled through the night, she was able to sleep. She is quite hungry this morning. She denies any nausea or vomiting. Exam GI Other: The I&D site is tender, with a little bit of superficial erythema. Objective Last Vital Signs Temp 98.2 F 07/20/24 08:11 Pulse 100 H 07/20/24 08:11 Resp 18 07/20/24 08:11 BP 118/52 L 07/20/24 08:11 Pulse Ox 94 07/20/24 08:11 Laboratory Results - last 24 hr 07/20/24 07:15 WBC 8.75 RBC 2.49 L Hgb 7.3 L Hct 22.7 L MCV 91 MCH 29.3 MCHC 32.2 RDW 14.1 Plt Count 337 MPV 10.5 Time Spent with Patient Time Spent with Patient: 25-34 minutes Time was spent: preparing to see the patient(eg.review tests), indepentently interpreting results and counseling the patient
--- NOTE | 2024-07-20 09:12 | W.ANESPRE ---
General Info Date of Service Date Performed: 07/20/24 Height: 5 ft Weight: 76.345 kg Body Mass Index (BMI): 32.8 Surgical Procedure: Operation Date: 07/20/24 09:40 Proposed Procedure Side Surgeon p ABD Wall Wound Washout, Debridement,Drain Fernando Rizo MD Meds Allergies and Home Medications Allergies Allergy/AdvReac Type Severity Reaction Status Date / Time alprazolam (From Xanax) Allergy Severe hives Verified 06/29/24 06:43 codeine Allergy Severe throat Verified 06/29/24 06:43 swells shut meperidine (From Demerol) Allergy Severe Hives Verified 06/29/24 06:43 Penicillins Allergy Severe throat Verified 06/29/24 06:43 swells shut butorphanol (From Stadol) Allergy Intermediate Anaphylaxis Verified 06/29/24 06:43 Iodinated Contrast Media Allergy Intermediate rash, Verified 06/29/24 06:43 nausea, vomiting ketorolac (From Toradol) AdvReac Intermediate Nausea Verified 06/29/24 06:43 IV Contrast Allergy Severe Skin Rash Uncoded 06/29/24 06:43 Home Medication ?Medication ?Instructions ?Recorded Docusate Sodium 200 mg PO HS 04/07/22 albuterol sulfate 90 mcg/actuation 2 puff inhalation Q6H PRN 04/07/22 aerosol inhaler amlodipine 10 mg tablet 10 mg PO DAILY 04/07/22 aspirin 81 mg tablet,delayed 81 mg PO DAILY 04/07/22 release isosorbide mononitrate 60 mg 60 mg PO DAILY 04/07/22 tablet,extended release 24 hr nitroglycerin 0.4 mg sublingual 0.4 mg sublingual Q5M PRN 04/07/22 tablet omeprazole 20 mg capsule,delayed 20 mg PO BID 04/07/22 release hydroxyzine HCl 25 mg tablet 25 mg PO TID PRN 04/21/22 metformin 1,000 mg tablet 1,000 mg PO BID 04/21/22 levalbuterol tartrate 45 2 inh inhalation Q6H 07/06/23 mcg/actuation aerosol inhaler atorvastatin 20 mg tablet 20 mg PO DAILY 01/27/24 famotidine 40 mg tablet 40 mg PO DAILY 01/27/24 fluticasone furoate 100 1 inh inhalation DAILY 01/27/24 mcg-vilanterol 25 mcg/dose inhalation powder (Breo Ellipta) trazodone 100 mg tablet 100 mg PO QHS PRN 01/27/24 losartan 100 mg tablet 100 mg PO DAILY 03/01/24 hydromorphone 2 mg tablet 1 mg (1/2 x 2 mg) PO Q4H PRN PRN 05/05/24 #16 tabs metoprolol succinate 50 mg 50 mg PO DAILY #90 tabs 05/05/24 tablet,extended release 24 hr diphenhydramine HCl 25 mg capsule 25 mg PO QHS 05/18/24 (Allergy (diphenhydramine)) metronidazole 500 mg tablet 500 mg PO .COMPLEX #8 tabs 05/18/24 neomycin 500 mg tablet 500 mg PO .COMPLEX #8 tabs 05/18/24 semaglutide 0.25 mg or 0.5 mg (2 0.5 mg subcut QWEEK 05/18/24 mg/3 mL) subcutaneous pen injector (Ozempic) sennosides 15 mg chewable tablet 15 mg PO BID 05/18/24 (Ex-Lax (sennosides)) ondansetron HCl 8 mg tablet 8 mg PO Q12H #14 tabs 07/18/24 Current Visit Medications: Current Medications Generic Name Dose Route Start Last Admin Trade Name Freq PRN Reason Stop Dose Admin Acetaminophen 650 mg 07/19/24 16:06 Acetaminophen 325 Mg Tab PO Q4H PRN PRN Albuterol Sulfate 2 puff 07/18/24 22:54 Albuterol Hfa 8 Gm 60 Puff Inh IH Q6H PRN PRN Amlodipine Besylate 10 mg 07/19/24 08:30 07/19/24 08:30 Amlodipine 10 Mg Tab PO Not Given DAILY DAMEON Atorvastatin Calcium 20 mg 07/18/24 23:00 07/19/24 19:59 Atorvastatin 20 Mg Tab PO 20 mg QPM DAMEON Administration Budesonide/Formoterol Fumarate 2 puff 07/19/24 08:30 07/20/24 08:14 Budesonide/Formoterol 80/4.5 6.9 Gm 60 Puff Inh IH 2 inh BID DAMEON Administration Dextrose 0 gm 07/18/24 21:49 Glucose Oral Gel 15 Gm/37.5 Gm Tube PO DIRECTED PRN Dextrose/Water 0 gm 07/18/24 21:49 Dextrose 50%-Water 25 Gm/50 Ml Syr IVP DIRECTED PRN Enoxaparin Sodium 40 mg 07/19/24 22:00 07/19/24 23:07 Enoxaparin 40 Mg/0.4 Ml Syr SC 40 mg Q24H DAMEON Administration Famotidine 20 mg 07/19/24 16:30 07/19/24 16:35 Famotidine 20 Mg Tab PO 20 mg DAILY DAMEON Administration Hydromorphone HCl 1 mg 07/18/24 22:54 07/20/24 05:39 Hydromorphone 2 Mg Tab PO 1 mg Q4H PRN PRN Administration Hydroxyzine HCl 25 mg 07/18/24 22:54 Hydroxyzine Hcl 25 Mg Tab PO TID PRN PRN Ringer's Solution 1,000 mls @ 75 mls/hr 07/18/24 22:54 07/20/24 05:45 IV 75 mls/hr INFUSION COUNT INCLUDES THE [facility] Administration Metronidazole 500 mg in 100 mls @ 100 mls/hr 07/19/24 02:00 07/20/24 02:02 Flagyl IVPB 100 mls/hr Q8H COUNT INCLUDES THE [facility] Administration Clindamycin Phosphate/Dextrose 900 mg in 50 mls @ 50 mls/hr 07/19/24 00:00 07/20/24 00:05 Cleocin In D5w IVPB Infused Q8H DAMEON Infusion IV Miscellaneous Supplies 1 each 07/18/24 22:54 Iv Access IV DIRECTED COUNT INCLUDES THE [facility] Insulin Aspart 0 units 07/19/24 08:00 07/19/24 17:52 Insulin Aspart 300 Units/3 Ml Pen SC 2 unit 0800,1200,1700 COUNT INCLUDES THE [facility] Administration Protocol Isosorbide Mononitrate 60 mg 07/19/24 08:30 07/19/24 07:47 Isosorbide Mononitrate 60 Mg Tabcr PO Not Given DAILY COUNT INCLUDES THE [facility] Losartan Potassium 100 mg 07/19/24 08:30 07/19/24 07:47 Losartan 50 Mg Tab PO Not Given DAILY COUNT INCLUDES THE [facility] Metoprolol Succinate 50 mg 07/19/24 08:30 07/19/24 07:47 Metoprolol Cr 50 Mg Tabcr PO Not Given DAILY COUNT INCLUDES THE [facility] Nitroglycerin 0.4 mg 07/19/24 07:26 Nitroglycerin 0.4 Mg Tab SL Q5 MIN PRN X3 PRN Omeprazole 20 mg 07/19/24 07:30 07/19/24 19:59 Omeprazole 20 Mg Capcr PO 20 mg BID@729,1999 DAMEON Administration Ondansetron HCl 4 mg 07/18/24 22:54 07/20/24 05:39 Ondansetron 4 Mg/2 Ml Vial IVP 4 mg Q4H PRN PRN Administration Sodium Chloride 0 ml 07/18/24 22:54 07/20/24 05:39 Normal Saline Flush 10 Ml Syr IVP 10 ml PRN PRN Administration Sodium Chloride 0 ml 07/19/24 08:30 07/19/24 22:38 Normal Saline Flush 10 Ml Syr IVP Not Given BID DAMEON Sodium Chloride 0 ml 07/18/24 22:54 Normal Saline 10 Ml Vial IJ DIRECTED PRN Trazodone HCl 100 mg 07/18/24 22:54 07/19/24 19:58 Trazodone 100 Mg Tab PO 100 mg HS PRN PRN Administration PFSH Active Problems Active Problems: Problem Status Onset Code Abdominal wall abscess Acute L02.211 Fever postop Acute R50.82 Tachycardia Acute R00.0 Chronic abdominal pain Acute R10.9, G89.29 Enterocutaneous fistula Chronic K63.2 Hyperglycemia Acute R73.9 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 Acute K90.9 Arthritis Acute M19.90 Back pain Acute M54.9 GERD (gastroesophageal reflux disease) Chronic K21.9 Obesity Chronic E66.9 Claustrophobia Acute F40.240 Osteoporosis Chronic M81.0 Headache Acute R51.9 Asthma with COPD (chronic obstructive pulmonary disease) Acute J44.9 Vitamin D deficiency Acute E55.9 Corns and callosities Acute L84 Cubital tunnel syndrome on left Acute G56.22 Cubital tunnel syndrome on right Acute G56.21 Trigger finger, left middle finger Acute M65.332 Trigger finger, right middle finger Acute M65.331 Left carpal tunnel syndrome Acute G56.02 Right carpal tunnel syndrome Acute G56.01 Medical History Medical History Hypokalemia Abdominal discomfort Screening for colon cancer Diabetes mellitus CAD (coronary artery disease) Parkinsons disease 02/03/23 pt has a DBS implanted for this RH Hypertension Hyperlipidemia Stenosis colon Osteoarthritis of left knee mild Small bowel obstruction Diverticulitis PTSD (post-traumatic stress disorder) Dermatitis Anxiety Petechial rash upper and lower extremities, chronic. Started in 2018. COPD (chronic obstructive pulmonary disease) Surgical History Surgical History Status post small bowel resection S/P exploratory laparotomy small bowel resection History of colonoscopy (~02/2024) History of colostomy reversal Tobacco Smoking/Tobacco Use Status: Former Tobacco Use Alcohol Alcohol Intake: never Substance Use Substance use: Never Substance use type: does not use Vital Signs and Lab Results Vital Signs Most Recent Vital Signs in EMR: Most Recent Vital Signs Temp Pulse Resp BP Pulse Ox 36.8 C 100 H 18 118/52 L 94 07/20/24 08:11 07/20/24 08:11 07/20/24 08:11 07/20/24 08:11 07/20/24 08:11 Point of Care Results Point of Care Results: Finger Stick Blood Glucose 157 07/20/24 06:43 Lab Results 07/20/24 07:15 07/19/24 06:02 Blood Type / Crossmatch: Antibody Screen NEGATIVE 06/24/24 Complete Blood Count: White Blood Count 8.75 10^3/uL (4.4-10.8) 07/20/24 07:15 Red Blood Count 2.49 10^6/uL (3.93-5.22) L 07/20/24 07:15 Hemoglobin 7.3 g/dL (11.2-15.7) L 07/20/24 07:15 Hematocrit 22.7 % (36.0-46.0) L 07/20/24 07:15 Platelet Count 337 10^3/uL (130-400) 07/20/24 07:15 Venous Blood Lactate 1.2 mmol/L (<or=2.0) 07/18/24 17:00 Complete Metabolic Panel: Sodium 137 mmol/L (136-145) 07/19/24 06:02 Potassium 3.6 mmol/L (3.5-5.1) 07/19/24 06:02 Chloride 101 mmol/L (98-107) 07/19/24 06:02 Carbon Dioxide 29.4 mmol/L (21.0-32.0) 07/19/24 06:02 BUN 12 mg/dL (7-18) 07/19/24 06:02 Creatinine 0.8 mg/dL (0.55-1.02) 07/19/24 06:02 Est GFR (CKD-EPI 2020) 78.24 (mL/min/1.73m2) 07/19/24 06:02 Magnesium 2.0 mg/dL (1.8-2.4) 07/12/24 06:40 Calcium 8.0 mg/dL (8.5-10.1) L 07/19/24 06:02 Albumin 2.6 g/dL (3.4-5.0) L 07/18/24 17:00 Glucose 165 mg/dL (74-106) H 07/19/24 06:02 C-Reactive Protein 10.78 mg/dL (<or=0.5) H 07/18/24 17:00 Liver Function Panel: Alanine Aminotransferase (ALT/SGPT) 27 U/L (14-59) 07/18/24 17:00 Aspartate Amino Transf (AST/SGOT) 22 U/L (15-37) 07/18/24 17:00 Coagulation Panel: INR International Normalized Ratio 1.1 (0.9-1.1) 07/05/24 04:20 Prothrombin Time 10.7 sec (9.1-11.1) 07/05/24 04:20 Activated Partial Thromboplast Time 38.2 sec (20.6-30.2) H 07/02/24 22:17 Cardiac Panel: No Data to Display Arterial Blood Gas: No Data to Display Venous Blood Gas: No Data to Display Pancreas Panel: No Data to Display Thyroid Panel: Thyroid Stimulating Hormone (TSH) 1.79 uIU/mL (0.36-3.74) 07/14/24 09:20 Infectious Disease: Coronavirus (COVID-19)(PCR) Negative (Negative) 07/18/24 19:10 Coronavirus 2019 Source Nasopharynx 07/18/24 19:10 Influenza Virus Type A (PCR) Negative (Negative) 07/18/24 19:10 Influenza Virus Type B (PCR) Negative (Negative) 07/18/24 19:10 Respiratory Syncytial Virus (PCR) Negative (Negative) 07/18/24 19:10 Blood Cultures: No Data to Display Toxicology Panel: No Data to Display Imaging and Studies Imaging and Studies Study information below may be from another EMR and interpreted by another provider. Please see original notes in EMR for more complete details. EKG Summary: 02/29/24 Conclusion Sinus rhythm 90 normal axis no stemi Anesthesia Assessment and Plan Anesthesia History Personal History: No History of Anesthesia Complications Family History: No Family History of Anesthesia Complications Exercise Tolerance Exercise Tolerance: Metabolic Equivalents>4 Pertinent Negatives Pertinent Negatives: No Symptoms of GERD Cardiac & Pulmonary Exam Cardiac Exam: Normal S1/S2 Heart Sounds Pulmonary Exam: Clear Bilateral Breath Sounds Implantable Cardiac Device Does patient have a Pacemaker or an ICD?: No Airway Exam Known Difficult Airway: No Mallampati Class: 2 Mouth Opening: Normal (> 3cm) Thyromental Distance: Greater than 3 cm Neck Range of Motion: Full ROM Neck Circumference: Normal Teeth Condition: Removable Dentures/Plates Upper, Removable Dentures/Plates Lower and Edentulous ASA Classification ASA Score: ASA 2 Emergency Case?: No NPO Status NPO Status: NPO Clears >2 hours, Solids >8 hours Anesthesia Plan Resuscitation Status: Full Code Anesthesia Technique: General Anesthesia Airway Planned: Endotracheal Tube Monitors Used: Standard Monitors
--- NOTE | 2024-07-20 09:47 | PDOC.CMPRO ---
Date of service: 07/20/24 Time of Service: 09:47 Care Management Progress Note Progress Note Text Progress Note Text: Bubba was sitting up in bed when CM met with her. She informed CM that she feels so much better since she went to surgery this morning and had the abscess drained. She stated she actually has no pain now as long as she remains still but has some discomfort with moving. Bubba was in a good mood today and was very talkative. She shared that she has suddenly gotten her appetite back and that her brought her a treat which she was able to eat. She stated she is actually looking forward to dinner tonight. Bubba went on to talk about her love for cooking and discussed some of her favorite recipes. She admitted that her loves her cooking and that they have been happily for 42 years. Discharge Potential Discharge Needs: PCP F/U Appt and Surgical F/U Appt Anticipated Barriers to Discharge: Medical Status Patient/Family Education Needs: Review discharge instructions, discuss Ask Me Three Transportation: Private vehicle Plan: Anticipate Bubba will be discharged home with a resumption of home health services when medically stable. She will follow up with her PCP and plan of care and transport with her . CM will follow. Social Determinants of Health Screening Will the Patient Participate in the Screening?: Declined to provide
[2024-07-20] MEDS: Bupivacaine 0.25% Pres-Free 30 ML VIAL (09:57)
[2024-07-20] MEDS: Bupivacaine LIPOSOME/PF 133 MG/10 ML VIAL IJ (09:57)
--- NOTE | 2024-07-20 10:13 | W.ANESVAS ---
Midline Placement Date Performed: 07/20/24 Procedure Time: 09:40 Requesting Provider: Fernando Rizo Procedure Location: Operating Room Sedation Given (Indicate Dose Given): No Sedation given Patient Mental Status: Awake Sterility: Hand Hygiene, Surgical Cap, Surgical Mask, Sterile Gloves and Chlorhexidine Laterality: Left Insertion Site: Basilic Midline Device: PowerGlide Pro 20G Catheter Length: 8 cm Midline Procedure Procedure: 1% Lidocaine to skin and subcutaneous tissue with 25g needle, Vessel accessed with catheter over needle, Guidewire placed with ease, Catheter placed without resistance and Guidewire removed Dressing: Tegaderm Applied and Statlock Applied Blood Return: Present Flushes: Easily Ultrasound: Sterile probe cover and gel used Ultrasound Image Saved?: No Number of Attempts (See previous attempts in note section): 1 Procedure Tolerated: No Complications and Patient tolerated well Procedure Outcome: Successful Performed By: Krystian López
--- NOTE | 2024-07-20 11:18 | ROE_ITS ---
Operative Note Operative Note PRE-OP DIAGNOSIS: Left lower quadrant necrotizing soft tissue infection secondary to peritonitis POST-OP DIAGNOSIS: same PROCEDURE: Exploration of left lower quadrant abscess cavity with irrigation and debridement of tissue. Application of a new surgical drain to the wound base, and wound packing SURGEON: Fernando Rizo COMMERCIAL CREDIT REVIEWER: Carli Rankin ANESTHESIA TYPE: Local By Surgeon and General LMA/ETT Refer to Anesthesia Record ESTIMATED BLOOD LOSS: 25 PATHOLOGY: none sent COMPLICATIONS: None Patient was transported to: PACU Patient's condition: stable Indications: Dave is a 73-year-old woman with a very complicated distant and recent surgical history. Most relevant to today, she had undergone laparotomy and small bowel resection for chronic partial small bowel obstruction and pain associated with her adhesions. That operation was complicated by postoperative enterotomy, although we have been unable to identify the exact source of that. Generally, it has been reasonably controlled with a surgical drain that was left at the time of the laparotomy. We attempted to complement that drain with 1 placed by dianne at [facility], unfortunately that became dislodged. Subsequently, she infected the tract along that previous drain site. It had been temporized with a small skin incision and drainage, which she needs formal debridement and attempt at better control of that site today. Findings: Mild necrotizing soft tissue infection of the subcutaneous fat and deep soft tissue levels down to the fascia, which is healthy appearing, and has no signs of obvious infection. Compromised tissue was debrided clean, and the wound was completely irrigated. New drain was placed at the base of the wound, and the area that seems most suspicious for communication with the peritoneal cavity, and overlying soft tissue was debrided and packed Procedure Description: I met with Kae in the preoperative area, and reviewed my plan for surgery once again with her. Essentially, organ to try to get better control of the I&D site from a necrotizing soft tissue infection that seems to be secondary to peritonitis from a previous enterotomy. I explained that largely the conduct of the operation will depend upon the findings as the soft tissue was explored, but the overarching goal is to debride away any compromised tissue, injuring the area in an effort to help it heal by tertiary intention, or at the very least mature a controlled enterocutaneous fistula site. I think she had a good understanding of this, and she consented to the procedure. We then moved back into the operating room, and she was assisted onto the OR table. A new midline IV was established by the anesthesia team, and general anesthesia was then induced. Anterior abdominal wall was prepped and draped widely. Previous surgical drain in the right lower quadrant was prepped into the field. I then extended the previous I&D incision site slightly medial and lateral, which allowed me to dissect down into the subcutaneous tissue. I tried to maintain the trajectory of the old IR drain down towards the fascia. This was quite challenging at the deeper level as there were some loculated fluid collections that required manual disruption and debridement. I was able to get down onto the anterior fascia of the external oblique and the lateral edge of the rectus sheath. The true tissue planes were quite difficult to identify, but the fascia was quite clear. Integrity the fascia was well-preserved, there was no evidence of any extension of the infection into any of those spaces. I followed the obvious sites of contamination in an effort to identify the previous drain traje ctory into the peritoneum. This was quite difficult towards the inferior medial aspects of the wound, and I used repeated rounds of irrigation and observation in an effort to see if I can identify any feculent material coming up through the wound base. As best I can tell, the old drain tract a little bit inferior to the skin incision site, and slightly towards the midline. All of this was debrided back down to healthy tissue, although I was never able to identify a clear connection into the peritoneal cavity. Next, I turned my attention to the previous right lower quadrant surgical drain. The prepped out portion of the drain was cut to a shorter length, and the drain was irrigated. I did not see any evidence of connection to the other wound. There was some drainage of the saline effluent around the drain itself, which I think is okay at this point as am trying to mature this with probable ultimate manage with a stoma bag. This drain was backed out approximately 5 cm, and it was secured in place with a Asia drain siddiqi. In an effort to avoid any further injury or complications, I simply debrided all the soft tissue back to healthy tissue using combination of manual debridement as well as sharp dissection. Overall, I would estimate this wound cavity to be about 6 cm wide by about 9 cm between the skin and the fascia. I left a Isaiah drain in the more dependent portion of the wound, and an area that that appears most consistent with a fistula towards the deeper abscess cavity. This drain was brought out through a separate incision slightly inferior to the I&D site. Again, the wound was copiously irrigated with saline solution, and I debrided as much obvious infected tissue as I could identify. I anesthetized this much of the wound is possible with local anesthetic mixed with Exparel. The wound was then packed with sterile Kerlix gauze up to the skin level. I did not obtain any new culture data as this wound has already been cultured, and so far has gram-positive organisms on the Gram stain, and the previous drain at [facility] has cultured for Vanco sensitive Enterococcus. I do not think there is any more meaningful microbiology to add this point, since her physiology has been reassuring, and I would expect this wound to at the very least be colonized with enteric contents. Date of Procedure: 07/20/24
[2024-07-20] MEDS: Insulin Aspart 300 UNITS/3 ML PEN SC ×2 (13:22→17:06)
--- NOTE | 2024-07-20 13:51 | W.ANESPOSTOP ---
Postoperative Evaluation Date, Time and Location Date Performed: 07/20/24 Time Performed: 12:40 Patient Location: PACU Vital Signs Most Recent Imported Vital Signs: Most Recent Vital Signs Temp Pulse Resp BP Pulse Ox 36.5 C 96 H 18 123/54 L 94 07/20/24 12:39 07/20/24 12:39 07/20/24 12:39 07/20/24 12:39 07/20/24 12:39 Pain Score Most Recent Pain Score: Most Recent Pain Score Pain Level 4 07/20/24 12:39 Assessment Mental Status: Awake (Alert & Oriented to Patient Baseline) Airway and Respiratory Function: Patent airway with normal (patient baseline) respiratory exam Cardiovascular Function: Hemodynamically Stable Hydration Status: Adequately Hydrated Nausea & Vomiting: No Nausea or Vomiting Pain: Pain is tolerable per patient Peripheral Nerve Block: Patient did not receive a nerve block
[2024-07-20] MEDS: Acetaminophen 325 MG TAB 650 MG PO (16:48)
[2024-07-20] MEDS: Enoxaparin 40 MG/0.4 ML SYR SC (20:33)
[2024-07-20] MEDS: hydrOXYzine HCL 25 MG TAB PO (20:34)
[2024-07-20] MEDS: Atorvastatin 20 MG TAB PO (20:34)
[2024-07-20] MEDS: Omeprazole 20 MG CAPCR PO (20:34)
[2024-07-21] MEDS: HYDROmorphone 2 MG TAB 1 MG PO ×4 (03:39→22:54)
[2024-07-21] MEDS: Acetaminophen 325 MG TAB 650 MG PO ×3 (03:39→22:54)
--- NOTE | 2024-07-21 07:33 | W.PM.PROGNOT ---
Date of Service Date of service: 07/21/24 Time of Service: 07:33 Assessment and Plan Assessment and plan (1) Abdominal wall abscess: Status: Acute Assessment and plan: Continue antibiotics RLQ drain with fleculent drainage LLQ drain with serosanginous drainage Pain is well controlled at this time Continue activity OOB as tolerated, ambulation etc. Regular diet Subjective Subjective Interval history since last seen: Patient reports she is feeling much better this morning and is eager to have a shower. She states that she has some leaking around her RLQ drain tubing, so she has extra dressing around it. She denies any nausea or vomiting. Exam Const General: cooperative, healthy appearing and comfortable Orientation: alert and oriented x3 Resp Effort & Inspection: normal respiratory effort, no audible wheezes and no cough GI Inspection: normal to inspection and non-distended Palpation: soft, no guarding and tender Other: RLQ drain- feculent drainage LLQ drain- serosanginous drainage Objective Last Vital Signs Temp 36.8 C 07/20/24 22:57 Pulse 95 H 07/20/24 22:57 Resp 18 07/20/24 22:57 BP 132/55 L 07/20/24 22:57 Pulse Ox 93 07/20/24 22:57 Time Spent with Patient Time Spent with Patient: <25 minutes Time was spent: preparing to see the patient(eg.review tests), obtaining and/or reviewing separately otained hiistory and counseling the patient
[2024-07-21] MEDS: Ciprofloxacin 500 MG TAB PO ×2 (07:39→19:47)
[2024-07-21] MEDS: Metoprolol CR 50 MG TABCR PO (07:39)
[2024-07-21] MEDS: Famotidine 20 MG TAB PO (07:40)
[2024-07-21] MEDS: amLODIPine 10 MG TAB PO (07:40)
[2024-07-21] MEDS: metroNIDAZOLE 500 MG TAB PO ×2 (07:40→19:47)
[2024-07-21] MEDS: Isosorbide Mononitrate 60 MG TABCR PO (07:40)
[2024-07-21] MEDS: Omeprazole 20 MG CAPCR PO ×2 (07:41→19:47)
[2024-07-21] MEDS: Losartan 50 MG TAB 100 MG PO (07:41)
[2024-07-21 07:46] VITALS: BP 132/57; PULSE 95; RESP 16; TEMP 36.5; O2SAT 94
[2024-07-21 07:46] LABS: HCT 24.4 % (36.0-46.0); HGB 7.5 g/dL (11.2-15.7); MCH 28.8 pg (27.0-33.0); MCHC 30.7 % (32.0-36.0); MCV 94 fL (80-95); MPV 10.5 fL (8.0-11.0); Platelet Count 378 10^3/uL (130-400); RDW 14.2 % (11.7-14.6); RDW-SD 48.6 fL; WBC 8.98 10^3/uL (4.4-10.8)
[2024-07-21] MEDS: Insulin Aspart 300 UNITS/3 ML PEN SC ×3 (08:39→18:03)
--- NOTE | 2024-07-21 09:21 | CMPROGNOTE_ITS ---
Date of service: 07/21/24 Time of Service: 09:21 Care Management Progress Note Progress Note Text Progress Note Text: Bubba was sitting up in bed when CM met with her. She stated that she continues to improve and her pain is well controlled. This morning Doreen, the PA from [facility], saw her and removed some of the packing from one of her wounds. Bubba stated it was very painful and she could only tolerate having some of it removed. Doreen will return later to complete the procedure. Bubba informed CM that she was very upset with the staff. She stated she had to have a BM and 2 nurses came into her room and when she told them of her need for assistance to the BR, she stated they just turned around and left. She was afraid she would be incontinent and, in fact, did lose a small amount of stool in the bed before she was assisted to the commode. Bubba stated the experience made her feel like a piece of trash thrown in the can. She acknowledged that she has never had anything like this happen at [facility] and she was really disappointed and upset. Unfortunately Bubba was unable to describe the staff or identify if they were nurses, students or LNAs. Discharge Potential Discharge Needs: PCP F/U Appt and Surgical F/U Appt Anticipated Barriers to Discharge: Medical Status Patient/Family Education Needs: Review discharge instructions, discuss Ask Me Three Transportation: Private vehicle Plan: Anticipate Bubba will be discharged home with a resumption of home health services when medically stable. She will follow up with her PCP and plan of care and transport with her . CM will follow. Social Determinants of Health Screening Will the Patient Participate in the Screening?: Declined to provide
[2024-07-21] MEDS: Lactated Ringers 1,000 ML 75 ML IV (09:39)
[2024-07-21 14:36] VITALS: TEMP 37.5
[2024-07-21 15:00] VITALS: TEMP 37.2
[2024-07-21] MEDS: hydrOXYzine HCL 25 MG TAB PO ×2 (15:42→22:54)
[2024-07-21] MEDS: traZODone 100 MG TAB PO (19:47)
[2024-07-21] MEDS: Atorvastatin 20 MG TAB PO (19:47)
[2024-07-21] MEDS: Budesonide/Formoterol 80/4.5 6.9 GM 60 PUFF INH IH (19:48)
[2024-07-21] MEDS: Enoxaparin 40 MG/0.4 ML SYR SC (20:04)
[2024-07-21 20:33] VITALS: BP 121/58; PULSE 95; RESP 17; TEMP 36.6; O2SAT 90
[2024-07-21] MEDS: Ondansetron O.D.T. 4 MG TABEF PO (22:54)
[2024-07-22] VITALS (8 sets, daily range): BP systolic 107–129; BP diastolic 59–73; PULSE 92–103; RESP 14–19; TEMP 36–39.4; O2SAT 92–94
[2024-07-22] MEDS: HYDROmorphone 2 MG TAB 1 MG PO ×3 (04:16→20:00)
[2024-07-22] MEDS: Ondansetron O.D.T. 4 MG TABEF PO ×3 (06:18→22:20)
[2024-07-22] MEDS: Acetaminophen 325 MG TAB 650 MG PO ×2 (06:18→17:14)
[2024-07-22] MEDS: Metoprolol CR 50 MG TABCR PO (07:45)
[2024-07-22] MEDS: Ciprofloxacin 500 MG TAB PO ×2 (07:45→20:00)
[2024-07-22] MEDS: Famotidine 20 MG TAB PO (07:45)
[2024-07-22] MEDS: Omeprazole 20 MG CAPCR PO ×2 (07:45→20:20)
[2024-07-22] MEDS: Losartan 50 MG TAB 100 MG PO (07:45)
[2024-07-22] MEDS: metroNIDAZOLE 500 MG TAB PO ×2 (07:45→19:59)
[2024-07-22] MEDS: amLODIPine 10 MG TAB PO (07:45)
[2024-07-22] MEDS: Isosorbide Mononitrate 60 MG TABCR PO (07:45)
[2024-07-22] MEDS: Normal Saline Flush 10 ML SYR IVP ×2 (07:47→19:58)
[2024-07-22] MEDS: Budesonide/Formoterol 80/4.5 6.9 GM 60 PUFF INH IH ×2 (08:12→21:00)
--- NOTE | 2024-07-22 08:46 | PDOC.CMPRO ---
Date of service: 07/22/24 Time of Service: 08:46 Care Management Progress Note Progress Note Text Progress Note Text: Bubba was lying in bed when CATARINA met with her. She informed CATARINA that she had been in a lot of pain earlier when Doreen, the [facility] PA, removed the last of the packing in her wound. She stated that it hurt so much, she had to ask them to stop part way through and medicate her, which they did. Bubba stated that after the medication, her pain subsided some but that she is still uncomfortable. CATARINA received a call for Dr. Landon today from surgery. She reported that she believes she might be able to discharge Bubba over the weekend but that she would need daily dressing changes from home health. CATARINA informed her (Dr. Landon) that she would call [facility] to apprise them of the referral and to ensure they would schedule her for Thursday. CATARINA did speak with Fabiola from the [facility] . She indicated that they prefer to have a family member learn to do the dressing changes as a daily visit is challenging for the agency. CATARINA communicated this to the surgeon who shared that while the daily dressing changes won't be forever, right now it is essential that it be done every day. Discharge Potential Discharge Needs: Surgical F/U Appt Anticipated Barriers to Discharge: Medical Status Patient/Family Education Needs: Review discharge instructions, discuss Ask Me Three Transportation: Private vehicle Plan: Anticipate Bubba will be discharged home with a resumption of home health services when medically stable. She will follow up with her PCP and plan of care and transport with her . CM will follow. Social Determinants of Health Screening Will the Patient Participate in the Screening?: Declined to provide Anticipated HH Services Anticipated HH Services at [facility] ([facility] - home health PT and daily dressing changes by nursing) Services Needed (RN, PT - NEW - Face to Face needed).
[2024-07-22] MEDS: HYDROmorphone 2 MG/ML SYR 0.5 MG IVP (09:30)
--- NOTE | 2024-07-22 11:48 | PGE_ITS ---
Date of Service Date of service: 07/22/24 Time of Service: 11:48 Assessment and Plan Assessment and plan (1) Abdominal wall abscess: Status: Acute Assessment and plan: Continue antibiotics RLQ drain with fleculent drainage LLQ drain with serosanginous drainage Packing was removed with discomfort despite IVP of dilaudid, topical lidocaine gel and saline. She will get a shower later today. Continue activity OOB as tolerated, ambulation etc. Regular diet Subjective Subjective Interval history since last seen: Arrive with Kae stating is having some pain this morning. She is really frustrated with her progress and really wants to return home. She denies any sandra sea or vomiting. She is concerned because she as having drainage through the dressing over her packed wound. Exam Const General: cooperative, healthy appearing and comfortable Orientation: alert and oriented x3 GI Inspection: normal to inspection and non-distended Palpation: soft, no guarding and tender Other: LLQ drain with serosanginous drainage RLQ drain with fleculent drainage RLQ wound was irrigated with saline, remaining gauze was moistened and topical lidocaine gel was instilled into the wound. Patient also received an IVP of dilaudid administered by [facility], due to Kae not tolerating removal of the packing. Wound was irrigated and repacked with moistened conform, gauze, ABD pads and mediport tape. - Inferior to the RLQ wound, she continues to have induration, exquisite tenderness with palpation and erythema. Objective Last Vital Signs Temp 36.5 C 07/22/24 07:37 Pulse 92 H 07/22/24 07:37 Resp 16 07/22/24 07:37 BP 129/59 L 07/22/24 07:37 Pulse Ox 94 07/22/24 07:37 Time Spent with Patient Time Spent with Patient: <25 minutes Time was spent: preparing to see the patient(eg.review tests), obtaining and/or reviewing separately otained hiistory and counseling the patient
--- NOTE | 2024-07-22 14:42 | CHAPLAIN ---
I had a brief second visit with Kae. Earlier in the week she told me that she was not interested in a automobile repossessor visit. I told her I was just checking in. She said she thinks she'll be here a while longer as this will take some time, but she said she needs to get home to her and pets.
[2024-07-22] MEDS: Insulin Aspart 300 UNITS/3 ML PEN SC (16:55)
[2024-07-22] MEDS: Atorvastatin 20 MG TAB PO (19:57)
[2024-07-22] MEDS: hydrOXYzine HCL 25 MG TAB PO (19:57)
[2024-07-22] MEDS: traZODone 100 MG TAB PO (20:00)
[2024-07-22] MEDS: Enoxaparin 40 MG/0.4 ML SYR SC (22:19)
[2024-07-23] MEDS: Acetaminophen 325 MG TAB 650 MG PO ×3 (02:20→20:11)
[2024-07-23] MEDS: Ondansetron O.D.T. 4 MG TABEF PO ×3 (05:38→21:59)
[2024-07-23 07:50] VITALS: BP 141/61; PULSE 99; RESP 16; TEMP 36.4; O2SAT 95
[2024-07-23] MEDS: Budesonide/Formoterol 80/4.5 6.9 GM 60 PUFF INH IH (08:12)
[2024-07-23] MEDS: Normal Saline Flush 10 ML SYR IVP ×4 (08:38→21:37)
[2024-07-23] MEDS: Famotidine 20 MG TAB PO (08:39)
[2024-07-23] MEDS: metroNIDAZOLE 500 MG TAB PO ×2 (08:39→19:55)
[2024-07-23] MEDS: amLODIPine 10 MG TAB PO (08:39)
[2024-07-23] MEDS: Ciprofloxacin 500 MG TAB PO (08:39)
[2024-07-23] MEDS: Losartan 50 MG TAB 100 MG PO (08:39)
[2024-07-23] MEDS: Omeprazole 20 MG CAPCR PO ×2 (08:39→19:55)
[2024-07-23] MEDS: Isosorbide Mononitrate 60 MG TABCR PO (08:39)
[2024-07-23] MEDS: Metoprolol CR 50 MG TABCR PO (08:39)
[2024-07-23] MEDS: Insulin Aspart 300 UNITS/3 ML PEN SC ×2 (08:45→12:15)
[2024-07-23] MEDS: HYDROmorphone 2 MG TAB 1 MG PO ×2 (12:00→23:14)
[2024-07-23] MEDS: HYDROmorphone 2 MG/ML SYR 0.5 MG IVP (15:05)
--- NOTE | 2024-07-23 15:18 | PGE_ITS ---
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 She recently had debridement of abdominal wall abscess in the left lower abdomen with packing and drain placement. Although she is not having any fevers and her white count has normalized, there still remains pretty significant amount of induration, small area of erythema, and tenderness adjacent to the wound in the left lower quadrant. Her wound cultures showed Enterococcus faecalis which is resistant to the Cipro so I discontinued that today. Have left the Flagyl running for now. Will see how her abdomen looks and feels tomorrow and continue to follow her white blood cell. As long as she is showing signs of improvement, we can think about getting her home with [facility] services for dressing changes. She is anxious to go home. Subjective Subjective Interval history since last seen: No acute events overnight. Patient reports improving abdominal pain. She reports that the dressing changed today was much less painful than yesterday's. She reports that the redness and the tenderness in the left lower quadrant is improving although still present. She is eating although she says she gets full quickly. She is having bowel movements. She gets out of bed and moves around independently. Afebrile. WBC within normal limits. Exam Narrative Exam Narrative: General?lying in bed, awake, alert, oriented, no apparent distress HEENT?normocephalic, atraumatic. Sclera anicteric, mucous membranes moist Respiratory?unlabored, no use of accessory muscles Abdomen?right and left-sided drains in place. Minimal succus in the bag on the right sided drain. Dressings in place. Abdomen is soft and the right side and the left upper abdomen. There is a fresh dressing in the left lower quadrant. The FABRICE on the side has some murky fluid in the bulb, small amount. There is still some significant erythema and induration just below the dressing and medial to the drain site. This area is quite tender with palpation. Extremities?moves all extremities, ambulates independently Psych?grossly Objective Last Vital Signs Temp 36.4 C L 07/23/24 07:50 Pulse 99 H 07/23/24 07:50 Resp 16 07/23/24 07:50 BP 141/61 H 07/23/24 07:50 Pulse Ox 95 07/23/24 07:50 Time Spent with Patient Time Spent with Patient: <25 minutes Time was spent: preparing to see the patient(eg.review tests), referring, communicating with other health care coordination manager and counseling the patient
[2024-07-23 16:31] VITALS: BP 118/60; PULSE 99; RESP 16; TEMP 36.4; O2SAT 99
[2024-07-23] MEDS: traZODone 100 MG TAB PO (19:55)
[2024-07-23] MEDS: Atorvastatin 20 MG TAB PO (19:55)
[2024-07-23] MEDS: Enoxaparin 40 MG/0.4 ML SYR SC (21:59)
[2024-07-23] MEDS: hydrOXYzine HCL 25 MG TAB PO (23:14)
[2024-07-23 23:17] VITALS: BP 124/56; PULSE 97; RESP 18; TEMP 37.1
[2024-07-24] MEDS: Ondansetron O.D.T. 4 MG TABEF PO ×2 (06:08→15:42)
[2024-07-24 07:39] VITALS: BP 142/60; PULSE 98; RESP 18; TEMP 36.7; O2SAT 93
[2024-07-24] MEDS: Budesonide/Formoterol 80/4.5 6.9 GM 60 PUFF INH IH (08:14)
[2024-07-24] MEDS: Famotidine 20 MG TAB PO (08:36)
[2024-07-24] MEDS: Omeprazole 20 MG CAPCR PO (08:36)
[2024-07-24] MEDS: Losartan 50 MG TAB 100 MG PO (08:36)
[2024-07-24] MEDS: Isosorbide Mononitrate 60 MG TABCR PO (08:36)
[2024-07-24] MEDS: Metoprolol CR 50 MG TABCR PO (08:36)
[2024-07-24] MEDS: metroNIDAZOLE 500 MG TAB PO (08:36)
[2024-07-24] MEDS: amLODIPine 10 MG TAB PO (08:36)
[2024-07-24] MEDS: Insulin Aspart 300 UNITS/3 ML PEN SC (08:36)
[2024-07-24] MEDS: Normal Saline Flush 10 ML SYR IVP ×2 (08:37→11:56)
[2024-07-24] MEDS: HYDROmorphone 2 MG/ML SYR 0.5 MG IVP (11:55)
[2024-07-24 12:18] LABS: Abs Immature Grans 0.13 10^3/uL (0.0-0.06); Absolute Basophil Count 0.04 10^3/uL (0.0-0.2); Absolute Eosinophil Count 0.14 10^3/uL (0.0-0.7); Absolute Lymphocyte Count 1.65 10^3/uL (1.2-3.4); Absolute Monocyte Count 0.68 10^3/uL (0.1-0.8); Absolute Neutrophil Count 4.66 10^3/uL (1.2-6.7); Basophils % 0.5 %; Eosinophils % 1.9 %; HGB 7.9 g/dL (11.2-15.7); Immature Grans % 1.8 %; Lymphocytes % 22.6 %; MCH 28.5 pg (27.0-33.0); MCHC 30.4 % (32.0-36.0); MCV 94 fL (80-95); MPV 9.9 fL (8.0-11.0); Monocytes % 9.3 %; Neutrophils % 63.9 %; Platelet Count 407 10^3/uL (130-400); RBC 2.77 10^6/uL (3.93-5.22); RDW 14.5 % (11.7-14.6); RDW-SD 49.5 fL
--- NOTE | 2024-07-24 13:39 | DSE_ITS ---
Date of service: 07/24/24 Time of Service: 03:00 DS: Diagnosis Discharge Diagnosis (1) Abdominal wall abscess: Status: Acute Discharge Plan Disposition Patient Disposition: Home W/Home Health Services Condition: Fair Discharge Details Reason For Visit: Abdominal wall abscess Admit Date/Time: 07/18/24 21:20 Admit Provider: Randee Delarosa Attending Provider: Randee Delarosa Primary Care Provider: Nikolas Matos Hospital Course Hospital Course: Patient is a 73-year-old woman who was admitted to the general surgery service. She has had a very long postoperative complicated course since she had an exploratory laparotomy about 6 weeks ago. She actually went home for a few days but was readmitted this past week. She was found to have a cellulitis and abscess in the left lower abdominal wall at the prior drain site. She was started on IV antibiotics. She was taken to the operating room for incision and drainage and debridement of the area as well as subcutaneous tissue FABRICE drain placement. She did well after the procedure. She was tolerating regular diet. She was ambulating at her baseline. The FABRICE drain output from the left lower quadrant remain low. It did not appear to be feculent or succus. She tolerated changing of the packing the wound at the bedside although she did require p remedication. She reported daily that the pain and tenderness in the left lower quadrant was improving. There is still remains a fair amount of induration and erythema adjacent to the wound but patient felt she was comfortable enough to go home. She was eventually discharged to home with home health services and her . She will be seen in the office later this week. Home Meds and New Rx's Prescriptions: New metronidazole 500 mg Tablet 500 mg PO BID Qty: 10 0RF Continued albuterol sulfate 90 mcg/actuation HFA aerosol inhaler 2 puff inhalation Q6H PRN amlodipine 10 mg tablet 10 mg PO DAILY isosorbide mononitrate 60 mg tablet extended release 24 hr 60 mg PO DAILY nitroglycerin 0.4 mg tablet, sublingual 0.4 mg sublingual Q5M PRN Rx Instructions: do not exceed 3 doses per episode omeprazole 20 mg capsule,delayed release(DR/EC) 20 mg PO BID aspirin 81 mg tablet,delayed release (DR/EC) 81 mg PO DAILY Docusate Sodium 200 mg PO HS diphenhydramine HCl [Allergy (diphenhydramine)] 25 mg capsule 25 mg PO QHS metformin 1,000 mg tablet 1,000 mg PO BID hydroxyzine HCl 25 mg tablet 25 mg PO TID PRN Ozempic 0.25 mg or 0.5 mg (2 mg/3 mL) pen injector 0.5 mg subcut QWEEK Ex-Lax (sennosides) 15 mg tablet,chewable 15 mg PO BID levalbuterol tartrate 45 mcg/actuation HFA aerosol inhaler 2 inh inhalation Q6H atorvastatin 20 mg tablet 20 mg PO DAILY fluticasone furoate-vilanterol [Breo Ellipta] 100-25 mcg/dose blister with device 1 inh inhalation DAILY famotidine 40 mg tablet 40 mg PO DAILY trazodone 100 mg tablet 100 mg PO QHS PRN ondansetron HCl 8 mg tablet 8 mg PO Q12H Qty: 14 0RF losartan 100 mg tablet 100 mg PO DAILY Patient Comments: TAKE ONE TABLET BY MOUTH EVERY DAY metoprolol succinate 50 mg Tablet Extended Release 24 Hr 50 mg PO DAILY Qty: 90 0RF hydromorphone 2 mg Tablet 1 mg PO Q4H PRN PRNQty: 16 0RF Discontinued neomycin 500 mg tablet 500 mg PO .COMPLEX Qty: 8 0RF Rx Instructions: 500 mg orally Per bowel surgery instructions; metronidazole 500 mg tablet 500 mg PO .COMPLEX Qty: 8 0RF Rx Instructions: 500 mg orally Per bowel surgery instructions; Discharge Instructions Additional Instructions: Activity: as tolerated Diet: regular diet Dressings: Change packing to LLQ wound daily, pack with damp gauze, cover with mepilex or dry gauze and tape. Change dressing around right sided drain daily, use dry gauze and tape, make sure drain is secured with the tape. Drains: Empty both drains daily and record output. Bring the record of the output to clinic. Medications: Resume all home medications. Take the metronidazole antibiotic for 5 more days. Take acetaminophen and ibuprofen for pain as needed. Follow up: Call the general surgery office tomorrow to set up a follow up visit with Dr Rizo later this week. Stand Alone Forms: Nursing Discharge Form Referrals: Dipesh JACK,Shila Euceda MD [MD [facility] STAFF PHYSICIAN] - (Please call the office to set up a follow up. ) Activity:: Activity as Tolerated Equipment/Supplies:: No Equipment Needed Diet:: As Tolerated Discharge Orders Discharge Orders: Discharge Order (Routine); Ordered 07/24/24 Ordered By: Shila Landon [facility] Discharge Data Discharge Date/Time-TO BE ENTERED AT DEPARTURE: 07/24/24 16:07 DS: Summary Time Spent with Patient providing and/or coordinating discharge services: Less than 30 minutes Status at Discharge Functional status at discharge: uses cane/walker Overall status at discharge: patient is progressing back to baseline Mental Status: mental status grossly normal Speech and Movement: speech and movement normal Mood: congruent mood Affect: normal affect Quality:SDOH Health Related Social Needs: No Data to Display Exam Psych Mental Status: mental status grossly normal Speech and Movement: speech and movement normal Mood: congruent mood Affect: normal affect DS: Data Vitals/I&O Vitals and I&O: Vital Signs Temperature 36.7 C 07/24/24 07:39 Temperature Source Tympanic 07/24/24 07:39 Pulse 98 H 07/24/24 07:39 Pulse Rhythm Regular 07/18/24 23:03 Pulse 130 H 07/18/24 22:31 Respiratory Rate 18 07/24/24 07:39 Respiratory Effort Normal, Non-Labored 07/18/24 23:03 Respiratory Depth Normal 07/18/24 23:03 Respiratory Pattern Normal 07/18/24 23:03 Blood Pressure 142/60 H 07/24/24 07:39 Blood Pressure Mean 120 07/18/24 22:31 Pulse Oximetry 93 07/24/24 07:39 Oxygen Delivery Method Room Air 07/24/24 07:39 Oxygen Flow Rate 0 07/24/24 07:39 Pain Level 3 07/24/24 07:39 Comment pT asked for temp to be taken 07/21/24 14:36 Intake & Output 07/23/24 07/24/24 07/24/24 23:59 11:59 23:59 Intake Total 530 / 530 Output Total 320 / 535 10 / 310 300 / 310 Balance 210 / -5 -10 / -310 -300 / -310 Intake: Oral 500 / 500 Injectate 30 / 30 Left Lower Abdomen 10 / 10 Right Lower Abdomen Output: Drainage 10 / Left Lower Abdomen 10 Right Lower Abdomen 0 / 0 Urine 300 / 500 300 / 300 Other: Urine Color Yellow Yellow Yellow Urine Appearance Clear Clear Clear Urine Odor Normal Stool Size Small Moderate Stool Characteristics Soft Formed Brown Brown Data Completed and Pending Labs on day of discharge: Labs from last 24 hours 07/24/24 12:10 WBC 7.30 RBC 2.77 L Hgb 7.9 L Hct 26.0 L MCV 94 MCH 28.5 MCHC 30.4 L RDW 14.5 Plt Count 407 H MPV 9.9 Immature Gran % 1.8 Neutrophils % 63.9 Lymphocytes % 22.6 Monocytes % 9.3 Eosinophils % 1.9 Basophils % 0.5 Nucleated RBC % 0.0 Absolute Neutrophils 4.66 Absolute Lymphocytes 1.65 Absolute Monocytes 0.68 Absolute Eosinophils 0.14 Absolute Basophils 0.04 PFSH All Active Problems (Updated 07/18/24 @ 21:41 by Randee Delarosa MD) Abdominal wall abscess (Acute) Fever postop (Acute) Tachycardia (Acute) Chronic abdominal pain (Acute) Enterocutaneous fistula (Chronic) Hyperglycemia (Acute) 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 (Acute) Arthritis (Acute) Back pain (Acute) GERD (gastroesophageal reflux disease) (Chronic) Obesity (Chronic) Claustrophobia (Acute) Osteoporosis (Chronic) Headache (Acute) Asthma with COPD (chronic obstructive pulmonary disease) (Acute) Vitamin D deficiency (Acute) Corns and callosities (Acute) Cubital tunnel syndrome on left (Acute) Cubital tunnel syndrome on right (Acute) Trigger finger, left middle finger (Acute) Trigger finger, right middle finger (Acute) Left carpal tunnel syndrome (Acute) Right carpal tunnel syndrome (Acute) Medical History Hypokalemia Abdominal discomfort Screening for colon cancer Diabetes mellitus CAD (coronary artery disease) Parkinsons disease 02/03/23 pt has a DBS implanted for this RH Hypertension Hyperlipidemia Stenosis colon Osteoarthritis of left knee mild Small bowel obstruction Diverticulitis PTSD (post-traumatic stress disorder) Dermatitis Anxiety Petechial rash upper and lower extremities, chronic. Started in 2018. COPD (chronic obstructive pulmonary disease) Surgical History Status post small bowel resection S/P exploratory laparotomy small bowel resection History of colonoscopy (~02/2024) History of colostomy reversal Social History Smoking/Tobacco Use Status: Former Tobacco Use Quit Date: 06/15/11 Smoking risk assessment performed?: Yes Alcohol Intake: never Drug use: Never Substance use type: does not use Housing: house Do you feel safe at home: Yes Do you feel safe in your relationship?: Yes Additional Social history: at side Time Spent with Patient Time Spent with Patient: <45 minutes Time was spent: preparing to see the patient(eg.review tests), ordering medications,tests, procedures, counseling the patient and care coordination
[2024-07-24 15:25] VITALS: BP 135/58; PULSE 103; RESP 14; TEMP 36.8; O2SAT 93
--- NOTE | 2024-07-24 18:14 | PDOC.HHF2F ---
Home Health Referral Home Health Orders Clinical synopsis of why skilled professionals are needed: Patient with wound complications after abdominal surgery. Now has intraabdominal drain in right side of abdomen and soft tissue drain in left side of abdomen. Also has open wound with packing from abscess drainage in left side of abdomen. Medical diagnosis necessitation home health referral: anastomotic leak, abdominal wall abscess, 2 drains Registered Nurse: Check all that apply Assess for exacerbation of medical condition, instruct patient/caregivers on signs and symptoms to report for early detection: Ordered (s/p exploratory laparotomy with small bowel resection with drainage of enterotomies) Assess wound for signs and symptoms of infection, instruct on wound care and/or provide skilled wound care consisting of: Dressings: 1) Change packing to LLQ wound daily, pack with damp gauze, cover with mepilex or dry gauze and tape. 2) Change dressing around right sided drain daily, use dry gauze and tape, make sure drain is secured with the tape. Drains: Empty both drains daily and record output. Bring the record of the output to clinic. Home Bound Status Requires the aid of supportive device (check all that apply): Cane Assistance of another person (Describe assistance and medical necessity): Patient cannot drive due to abdominal wound issues Patient has a condition such that leaving home is medically contraindicated (Describe): she has abdominal drains that prohibit easy transport to and from health care settings. She is also debilitated with ongoing home PT needs Describe why leaving home would require a considerable and taxing effort: Safety Concerns: describe (difficulty with mobility and transport, impossible to expect her to travel for wound care daily) Encounter Date and Reason: I certify that a FTF encounter for this patient was performed on July 24, 2024 and that such encounter was related to the primary reason the patient requires home health services. The encounter was conducted in the following manner: By me as the certifying physician, MEDICAL EDUCATION SPECIALIST, PA or By an inpatient physician, MEDICAL EDUCATION SPECIALIST or PA during an inpatient stay who communicated findings to me, Certification And Authentication I certify that I composed the above information based on my clinical judgment relating to this patient's medical condition and, if applicable, clinical findings communicated to me by the NPP or inpatient physician who performed the FTF encounter. Name of Provider that will be monitoring home health services: Nikolas Matos
== END 2024-07-24 16:07 | disposition home health service (06) | DRG 856 ==
LOC: ER 20:44 → MS 22:33
PROVIDERS: Surgery; Admitting Provider Surgery; Emergency Provider Nurse Practitioner Family; PCP Physician Assistant; Visit Provider Surgery
PROC: 0JB80ZZ Excision of Abdomen Subcutaneous Tissue and Fascia, Open Approach (ICD-10-PCS; CPT 11005; principal; 2024-07-20 09:30)
DX: T81.49XA Infection following a procedure, other surgical site, initial encounter; K65.9 Peritonitis, unspecified; L03.311 Cellulitis of abdominal wall; K63.2 Fistula of intestine; B95.2 Enterococcus as the cause of diseases classified elsewhere; Y83.8 Other surgical procedures as the cause of abnormal reaction of the patient, or of later complication, without mention of misadventure at the time of the procedure; R00.0 Tachycardia, unspecified; K21.9 Gastro-esophageal reflux disease without esophagitis; E66.9 Obesity, unspecified; M81.0 Age-related osteoporosis without current pathological fracture; F40.240 Claustrophobia; J44.9 Chronic obstructive pulmonary disease, unspecified; E55.9 Vitamin D deficiency, unspecified; E11.9 Type 2 diabetes mellitus without complications; I25.10 Atherosclerotic heart disease of native coronary artery without angina pectoris; I10 Essential (primary) hypertension; E78.5 Hyperlipidemia, unspecified; F43.10 Post-traumatic stress disorder, unspecified; F41.9 Anxiety disorder, unspecified; Z90.49 Acquired absence of other specified parts of digestive tract; Z87.891 Personal history of nicotine dependence; Z79.85 Long-term (current) use of injectable non-insulin antidiabetic drugs; Z79.84 Long term (current) use of oral hypoglycemic drugs
CPT/HCPCS: 11005; 10180; 36410; 10060; 00123; 36415; 80048; 80053; 85027; 85652; 87040; 87077; 87637; 94640; 96365; 96367; 96375; 99285; J1650; 74176; 81003; 81015; 83605; 85025; 86140; 87070; 87186; 87205; 94664; J0665; J0666; J0737; J0744; J1100; J1171; J1815; J1836; J2003; J2405; J2704

== ENCOUNTER 2024-08-03 05:15 | Emergency (ER) | payer BC, MEDICARE, SELFPAY ==
[2024-08-03] VITALS (15 sets, daily range): BP systolic 149–185; BP diastolic 45–61; PULSE 110–136; RESP 10–32; TEMP 37–37.3; O2SAT 91–96
--- NOTE | 2024-08-03 05:15 | RT.EKG_ITS ---
APPROVED REPORT Exam: Resting ECG Reason for Exam: rapid heartrate Patient Location: E HR:128 bpm ECG Measurements Heart Rate 128 AXIS SC 130 P 42 QRSd 73 QRS 35 QT 304 T 29 QTc 444 Conclusion Sinus tachycardia...rate> 99 Probable left atrial enlargement...P >50mS, <-0.10mV V1 no ST segment or T wave abnormalities to suggest occlusive NM
--- NOTE | 2024-08-03 05:30 | DI.CT_ITS ---
Exam(s) CT ABDOMEN PELVIS WO EXAM: CT ABDOMEN PELVIS WO CLINICAL HISTORY: post op wound dehisce, copious drainage. TECHNIQUE: Imaging Protocol: Axial computed tomography images with coronal and sagittal reformatted images were created and reviewed. COMPARISON: CT CT ABDOMEN PELVIS WO from 07/18/2024 FINDINGS: Lack of IV contrast limits evaluation of the abdominal pelvic organs. ABDOMEN: Lung Bases: Coronary artery calcifications are present. Calcified granuloma seen in the left lower l obe. Liver: There is diffuse decreased attenuation of the liver consistent with fatty infiltration. The l iver measures 18 cm long. No measurable mass. Gallbladder and biliary tract: Status post cholecystectomy. Pancreas: Normal density, no abnormal calcifications or inflammatory process. Spleen: Normal. Kidneys: Normal size, contour and axis.No radiodense stones or obstructive uropathy. No masses seen. Adrenal glands: No mass is seen. Lymph nodes: Within normal limits. Abdominal Aorta: Abdominal portion non-dilated. Atherosclerotic calcification is present. PELVIS: Bladder:Symmetric distention, no gross wall thickening. Bowel: There is diverticulosis of the colon without evidence of acute diverticulitis. There is no ev idence of bowel obstruction or bowel wall thickening. Peritoneal cavity: There has been interval decrease in size of the intra-abdominal collections since the prior examination. The collection just deep to the left anterior abdominal wall now measures 4.3 x 0.9 cm. (Series 2, image 245). The collection just deep to the mid abdominal wall measures 3.0 x 2.7 x 4.2 cm. It appears to maintain a communication to the anterior abdominal wall and subcutaneou s tissues in the midline. There is a complex air-fluid collection in the midline within the surgical scar measuring 5.3 x 4.5 cm (series 2, image 302). This has increased in size compared to the prior examination. Abscess should be considered. Since the prior examination a catheter was placed in th e subcutaneous tissues of the left anterior abdominal wall. No drainable fluid collection is seen in this region. Reproductive organs: Status post hysterectomy. Bones: Within normal limits. There is a nerve stimulator device in place. Posterior spinal fusion is seen from L4 through S1. Soft Tissues: There is thickening of the anterior abdominal wall particularly on the left. There is gas again seen in the left anterior abdominal wall in the region of the recently placed drain. IMPRESSION: 1. Interval decrease in size of the intra abdominal fluid collections as described above. These freddie ections are adjacent to bowel loops and fistulous communication cannot be excluded on this examinatio n. 2. The midline fluid collection communicates with an air-fluid collection in the base of the surgical scar in the midline abdominal wall which measures 5.3 x 4.5 cm. This was not present on the prior e xamination and likely reflects an abscess. 3. Interval placement of a drainage catheter in the left anterior abdominal wall. There is persisten t soft tissue gas in the region of the catheter but no focal fluid collection is seen. 4. Skin thickening over the anterior abdominal wall particularly on the left consistent with a cellul itis. RADIATION DOSE DELIVERED: 398.55mGy.cm Total DLP DATA REPOSITORY: All CT scans at this facility are submitted to the National Radiology Data Registry (NRDR) Dose Index Registry (DIR) with the [employer] (A[employer]). RADIATION OPTIMIZATION: All CT scans at this facility use at least one of these dose optimization te chniques: automated exposure control; mA and/or kV adjustment per patient size (includes targeted exa ms where dose is matched to clinical indication); or iterative reconstruction.
--- NOTE | 2024-08-03 05:44 | ED.GENADUL_ITS ---
Discharge Plan Discharge Details Chief Complaint: SurgicalRecheck Primary Care Provider: Nikolas Matos ED Provider: Jazmine Love Home Meds and New Rx's Prescriptions: No Action albuterol sulfate 90 mcg/actuation HFA aerosol inhaler 2 puff inhalation Q6H PRN amlodipine 10 mg tablet 10 mg PO DAILY isosorbide mononitrate 60 mg tablet extended release 24 hr 60 mg PO DAILY nitroglycerin 0.4 mg tablet, sublingual 0.4 mg sublingual Q5M PRN Rx Instructions: do not exceed 3 doses per episode omeprazole 20 mg capsule,delayed release(DR/EC) 20 mg PO BID aspirin 81 mg tablet,delayed release (DR/EC) 81 mg PO DAILY Docusate Sodium 200 mg PO HS diphenhydramine HCl [Allergy (diphenhydramine)] 25 mg capsule 25 mg PO QHS metformin 1,000 mg tablet 1,000 mg PO BID hydroxyzine HCl 25 mg tablet 25 mg PO TID PRN Ozempic 0.25 mg or 0.5 mg (2 mg/3 mL) pen injector 0.5 mg subcut QWEEK Ex-Lax (sennosides) 15 mg tablet,chewable 15 mg PO BID levalbuterol tartrate 45 mcg/actuation HFA aerosol inhaler 2 inh inhalation Q6H atorvastatin 20 mg tablet 20 mg PO DAILY fluticasone furoate-vilanterol [Breo Ellipta] 100-25 mcg/dose blister with device 1 inh inhalation DAILY famotidine 40 mg tablet 40 mg PO DAILY trazodone 100 mg tablet 100 mg PO QHS PRN ondansetron HCl 8 mg tablet 8 mg PO Q12H Qty: 14 0RF losartan 100 mg tablet 100 mg PO DAILY Patient Comments: TAKE ONE TABLET BY MOUTH EVERY DAY metoprolol succinate 50 mg Tablet Extended Release 24 Hr 50 mg PO DAILY Qty: 90 0RF metronidazole 500 mg Tablet 500 mg PO BID Qty: 10 0RF HPI General Mode of arrival: ambulatory . Date/Time Provider Initiated Documentation: 08/03/24 05:16 . Limitations to Documentation: no limitations . Information obtained by: patient and old records reviewed . HPI Narrative: 73yo F presenting with wound dehiscence and copious drainage from post-op site. 06/29/24 had small bowel resection c/b postop enterotomy. 07/20/24 surgical debridement of abscess with drain placed. Right sided drain 'fell out' yesterday. This morning during dressing change she noted a 'hole' and has had a large amount of greenish brown fluid saturating multiple abd pads. Feels generally unwell, fatigued; no fevers, nausea, vomiting, or worsening abdominal pain. Related Data Home Medications ?Medication ?Instructions ?Recorded ?Confirmed Docusate Sodium 200 mg PO HS 04/07/22 08/03/24 albuterol sulfate 90 mcg/actuation 2 puff inhalation Q6H PRN 04/07/22 08/03/24 aerosol inhaler amlodipine 10 mg tablet 10 mg PO DAILY 04/07/22 08/03/24 aspirin 81 mg tablet,delayed 81 mg PO DAILY 04/07/22 08/03/24 release isosorbide mononitrate 60 mg 60 mg PO DAILY 04/07/22 08/03/24 tablet,extended release 24 hr nitroglycerin 0.4 mg sublingual 0.4 mg sublingual Q5M PRN 04/07/22 08/03/24 tablet omeprazole 20 mg capsule,delayed 20 mg PO BID 04/07/22 08/03/24 release hydroxyzine HCl 25 mg tablet 25 mg PO TID PRN 04/21/22 08/03/24 metformin 1,000 mg tablet 1,000 mg PO BID 04/21/22 08/03/24 levalbuterol tartrate 45 2 inh inhalation Q6H 07/06/23 08/03/24 mcg/actuation aerosol inhaler atorvastatin 20 mg tablet 20 mg PO DAILY 01/27/24 08/03/24 famotidine 40 mg tablet 40 mg PO DAILY 01/27/24 08/03/24 fluticasone furoate 100 1 inh inhalation DAILY 01/27/24 08/03/24 mcg-vilanterol 25 mcg/dose inhalation powder (Breo Ellipta) trazodone 100 mg tablet 100 mg PO QHS PRN 01/27/24 08/03/24 losartan 100 mg tablet 100 mg PO DAILY 03/01/24 08/03/24 metoprolol succinate 50 mg 50 mg PO DAILY #90 tabs 05/05/24 08/03/24 tablet,extended release 24 hr diphenhydramine HCl 25 mg capsule 25 mg PO QHS 05/18/24 08/03/24 (Allergy (diphenhydramine)) semaglutide 0.25 mg or 0.5 mg (2 0.5 mg subcut QWEEK 05/18/24 08/03/24 mg/3 mL) subcutaneous pen injector (Ozempic) sennosides 15 mg chewable tablet 15 mg PO BID 05/18/24 08/03/24 (Ex-Lax (sennosides)) ondansetron HCl 8 mg tablet 8 mg PO Q12H #14 tabs 07/18/24 08/03/24 metronidazole 500 mg tablet 500 mg PO BID #10 tabs 07/24/24 08/03/24 Previous Rx's ?Medication ?Instructions ?Recorded metoprolol succinate 50 mg 50 mg PO DAILY #90 tabs 05/05/24 tablet,extended release 24 hr ondansetron HCl 8 mg tablet 8 mg PO Q12H #14 tabs 07/18/24 metronidazole 500 mg tablet 500 mg PO BID #10 tabs 07/24/24 Allergies Allergy/AdvReac Type Severity Reaction Status Date / Time alprazolam (From Xanax) Allergy Severe hives Verified 08/03/24 05:33 codeine Allergy Severe throat Verified 08/03/24 05:33 swells shut meperidine (From Demerol) Allergy Severe Hives Verified 08/03/24 05:33 Penicillins Allergy Severe throat Verified 08/03/24 05:33 swells shut butorphanol (From Stadol) Allergy Intermediate Anaphylaxis Verified 08/03/24 05:33 Iodinated Contrast Media Allergy Intermediate rash, Verified 08/03/24 05:33 nausea, vomiting ketorolac (From Toradol) AdvReac Intermediate Nausea Verified 08/03/24 05:33 IV Contrast Allergy Severe Skin Rash Uncoded 08/03/24 05:33 General Stated Complaint: SurgicalRecheck ABRAHAM: 3 Review of Systems Narrative: see HPI Exam Narrative Exam Narrative: General: Alert, non-toxic Head: Normocephalic, atraumatic Neck: Trachea midline, ?Neck supple. Cardiac: ?Tachycardiac, regular, no murmurs appreciated Resp: No respiratory distress. CTAB. Abd: ?Soft, non-distended, mildly tender around surgical sites. Right abdomen dressing to prior drain intact. Midline ~1cm circular open wound with copious thin brown drainage. Left of midline ~3cm wound with packing in place. Left abd drain intact. Extremities: ?No deformities.? No peripheral edema. Neurologic: GCS 15. ? Moves all extremities freely against gravity Course Vital Signs Vital signs: Vital Signs Temperature 37.3 C 08/03/24 05:27 Pulse 132 H 08/03/24 05:27 Respiratory Rate 16 08/03/24 05:27 Blood Pressure 151/47 H 08/03/24 05:27 Pulse Oximetry 95 08/03/24 05:27 Temperature 37.3 C 08/03/24 05:27 Temperature Source Oral 08/03/24 05:27 Pulse 132 H 08/03/24 05:27 Respiratory Rate 16 08/03/24 05:27 Blood Pressure 151/47 H 08/03/24 05:27 Blood Pressure Position Supine 08/03/24 05:27 Pulse Oximetry 95 08/03/24 05:27 Oxygen Delivery Method Room Air 08/03/24 05:27 Oxygen Flow Rate 0 08/03/24 05:27 Pain Level 8 08/03/24 05:27 Medical Decision Making 73yo F presenting with wound dehiscence and copious drainage from post-op site. 06/29/24 had small bowel resection c/b postop enterotomy. 07/20/24 surgical debridement of abscess with drain placed. Tachycardiac to 130's on arrival, vital signs otherwise reassuring, afebrile. Not toxic, alert, in no acute distress. Abd minimally tender; does have 1cm opening to midabd with copious thin brown/greenish discharge. Not overtly septic; would not treat empirically, however will send cultures while awaiting results of workup. EKG sinus tachycardia, appropriate intervals, no ST segment or T wave abnor malities to suggest occlusive FL. Labs reviewed as below, CBC with mild anemia 8.5 (improved from 7.9 two weeks ago and unlikely cause of pts tachcyardia), CMP with no actionable abnormalities, lactate 2.0, coags reassuring. On reassessment HR had improved to 90's-100's without intervention. Will be signed out to oncoming physician pending CT abd/pelvis. Medical Records Medical records reviewed: Yes I reviewed the patient's medical records. Medical records narrative: op notes Quality:SDOH Health Related Social Needs: No Data to Display PFSH All Active Problems (Updated 07/25/24 @ 00:03 by 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) Abdominal wall abscess (Acute) Tachycardia (Acute) Chronic abdominal pain (Acute) Enterocutaneous fistula (Chronic) Hyperglycemia (Acute) 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 (Acute) Arthritis (Acute) Back pain (Acute) GERD (gastroesophageal reflux disease) (Chronic) Obesity (Chronic) Claustrophobia (Acute) Osteoporosis (Chronic) Headache (Acute) Asthma with COPD (chronic obstructive pulmonary disease) (Acute) Vitamin D deficiency (Acute) Corns and callosities (Acute) Cubital tunnel syndrome on left (Acute) Cubital tunnel syndrome on right (Acute) Trigger finger, left middle finger (Acute) Trigger finger, right middle finger (Acute) Left carpal tunnel syndrome (Acute) Right carpal tunnel syndrome (Acute) Medical History Hypokalemia Abdominal discomfort Screening for colon cancer Diabetes mellitus CAD (coronary artery disease) Parkinsons disease 02/03/23 pt has a DBS implanted for this RH Hypertension Hyperlipidemia Stenosis colon Osteoarthritis of left knee mild Small bowel obstruction Diverticulitis PTSD (post-traumatic stress disorder) Dermatitis Anxiety Petechial rash upper and lower extremities, chronic. Started in 2018. COPD (chronic obstructive pulmonary disease) Surgical History Status post small bowel resection S/P exploratory laparotomy small bowel resection History of colonoscopy (~02/2024) History of colostomy reversal Social History Smoking/Tobacco Use Status: Former Tobacco Use Quit Date: 06/15/11 Smoking risk assessment performed?: Yes Alcohol Intake: never Drug use: Never Substance use type: does not use Housing: house Do you feel safe at home: Yes Do you feel safe in your relationship?: Yes Additional Social history: at side
[2024-08-03 06:36] LABS: Abs Immature Grans 0.09 10^3/uL (0.0-0.06); Absolute Basophil Count 0.05 10^3/uL (0.0-0.2); Absolute Eosinophil Count 0.03 10^3/uL (0.0-0.7); Absolute Lymphocyte Count 1.57 10^3/uL (1.2-3.4); Absolute Monocyte Count 0.65 10^3/uL (0.1-0.8); Absolute Neutrophil Count 5.45 10^3/uL (1.2-6.7); Basophils % 0.6 %; Eosinophils % 0.4 %; HCT 27.9 % (36.0-46.0); HGB 8.5 g/dL (11.2-15.7); Immature Grans % 1.1 %; MCH 27.7 pg (27.0-33.0); MCHC 30.5 % (32.0-36.0); MCV 91 fL (80-95); MPV 9.8 fL (8.0-11.0); Monocytes % 8.3 %; Neutrophils % 69.6 %; Platelet Count 589 10^3/uL (130-400); RBC 3.07 10^6/uL (3.93-5.22); RDW 14.8 % (11.7-14.6); RDW-SD 49.6 fL; WBC 7.84 10^3/uL (4.4-10.8)
[2024-08-03 06:59] LABS: INR 1.1 (0.9-1.1); PTT Activated 25.9 sec (20.6-30.2); Prothrombin Time 11.4 sec (9.1-11.1)
[2024-08-03 07:10] LABS: ALT 14 U/L (14-59); AST 12 U/L (15-37); Albumin 2.5 g/dL (3.4-5.0); Alkaline Phosphatase 54 U/L (46-116); Anion Gap 7.5 mmol/L (3-11); BUN 13 mg/dL (7-18); Bilirubin, Total 0.35 mg/dL (0.2-1.0); CO2 29.5 mmol/L (21.0-32.0); Calcium 8.9 mg/dL (8.5-10.1); Chloride 101 mmol/L (98-107); Estimated GFR 59.86 (mL/min/1.73m2); Glucose 213 mg/dL (74-106); Magnesium 1.7 mg/dL (1.8-2.4); Potassium 3.9 mmol/L (3.5-5.1); Sodium 138 mmol/L (136-145); Total Protein 7.7 g/dL (6.4-8.2)
[2024-08-03] MEDS: fentaNYL 100 MCG/2 ML VIAL 25 MCG IVP (07:31)
--- NOTE | 2024-08-03 07:56 | DI.VRAD_ITS ---
PROCEDURE INFORMATION: Exam: CT Abdomen And Pelvis Without Contrast Exam date and time: 08/03/2024 6:54 AM Age: 73 years old Clinical indication: Other: Post op wound dehisce, copious drainage; Prior surgery; Surgery date: <1 month; Surgery type: Stomach surgery TECHNIQUE: Imaging protocol: Computed tomography of the abdomen and pelvis without contrast. COMPARISON: CT ABDOMEN PELVIS WO 07/18/2024 5:44 PM FINDINGS: Limitations: Mild motion artifact. No contrast was administered, limiting evaluation for some pathologies. Images degraded due to artifact caused by metallic hardware. Lungs: Scarring/atelectasis in the lungs. Coronary arteries: Coronary artery calcifications. Liver: No focal hepatic lesion identified, within the limitations of a noncontrast examination. Gallbladder and biliary ducts: Cholecystectomy. Pancreas: No CT evidence for acute pancreatitis. Spleen: No splenomegaly. Adrenal glands: Adrenal thickening. Kidneys and ureters: No hydronephrosis. Stomach and bowel: Prior bowel surgeries. No intestinal obstruction is evident. Retained fecal material is present in the colon. Appendix: No evidence of appendicitis. Intraperitoneal space: Intra-abdominal collections as described below. Small foci of pneumoperitoneum. Vasculature: Atherosclerotic changes and calcifications in the aorta and its branches. Lymph nodes: Nonspecific mesenteric and retroperitoneal lymph nodes. Bilateral inguinal lymph nodes left greater than right. Urinary bladder: No acute findings. Reproductive: Uterus not visualized. Bones/joints: Fusion from L3-S1 with posterior decompression. Artifact limits evaluation of the surrounding tissues. Soft tissues: There is extensive stranding and gas in the subcutaneous fat of the anterior abdominal wall consistent with cellulitis. The abdominal wall musculature is expanded and edematous, suggesting involvement with infection as well. Drainage catheter is present in the subcutaneous fat of the left lower quadrant. There are multiple gas and fluid collections in the anterior abdominal wall which communicate with intra-abdominal gas and fluid collections. Some of these abut bowel loops, raising suspicion for fistula. Evaluation is limited on noncontrast examination. There is a tract of intra-abdominal gas extending from the left lower quadrant superiorly to the left upper quadrant and inferiorly across the midline in the anterior right lower quadrant, possibly communicating with a right lower quadrant ostomy. This appears to represent site of previous drainage catheter. Clinical correlation advised. IMPRESSION: 1. Findings consistent with cellulitis of the anterior abdominal wall. Gas within the abdominal wall may represent recent instrumentation and/or infection with gas producing organisms. 2. Gas in the anterior abdominal wall communicates with intra-abdominal gas and fluid collections consistent with abscesses. Some of these abut bowel loops and fistulization cannot be excluded on this noncontrast examination. 3. Additional findings as above. 4. THIS REPORT CONTAINS FINDINGS THAT MAY BE CRITICAL TO PATIENT CARE. The findings were verbally communicated via telephone conference with Dr. Claire at 7:50 AM EST on 08/03/2024. The findings were acknowledged and understood. Dictated and Authenticated by: Edna Vasquez MD. Orderin Kate Lucero MD
--- NOTE | 2024-08-03 08:41 | W.SURGCON ---
Date of service: 08/03/24 Time of Service: 08:30 Assessment and Plan Assessment and plan (1) Abdominal wall abscess: Status: Acute Assessment and plan: 73-year-old woman who has had a relatively?large abscess within the peritoneal cavity directly beneath this area on her incision for well over a month now. We had tried to drain it with IR but that drain fell out. We also did a takeback procedure and operatively drained it. That drain tract has healed over. She now has a clear and obvious track that the continuous abscess has decided is its exit strategy. I do understand that a fair amount of volume came out of this initially, but now there is hardly anything coming out. Further, I have drained some pus just lateral to this location in the soft tissue of her anterior abdominal wall and already her erythema is visibly improved. She does not need to be admitted. The drainage efforts are adequate at this time. I do believe or down to 1 or maybe 2 draining tracts that I am optimistic are going to heal up with time. They are definitely low?output situations. She reports she continues to eat well and is having good bowel movements. Overall plan: I will see her in the office tomorrow and reassess how everything is looking and doing History of Present Illness Narrative: 73-year-old woman is well-known to me. She is supposed to see me in the office tomorrow. Nothing is coming out of her drains. She comes in today because she had erruption of fluid out of her midline incision. It happened in the middle of the night last night and she came in to get it checked out. PFSH All Active Problems (Updated 08/03/24 @ 08:46 by Bernardo Claire DO) Abdominal wall abscess (Acute) Abdominal wall abscess (Acute) Tachycardia (Acute) Chronic abdominal pain (Acute) Enterocutaneous fistula (Chronic) Hyperglycemia (Acute) 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 (Acute) Arthritis (Acute) Back pain (Acute) GERD (gastroesophageal reflux disease) (Chronic) Obesity (Chronic) Claustrophobia (Acute) Osteoporosis (Chronic) Headache (Acute) Asthma with COPD (chronic obstructive pulmonary disease) (Acute) Vitamin D deficiency (Acute) Corns and callosities (Acute) Cubital tunnel syndrome on left (Acute) Cubital tunnel syndrome on right (Acute) Trigger finger, left middle finger (Acute) Trigger finger, right middle finger (Acute) Left carpal tunnel syndrome (Acute) Right carpal tunnel syndrome (Acute) Medical History Hypokalemia Abdominal discomfort Screening for colon cancer Diabetes mellitus CAD (coronary artery disease) Parkinsons disease 02/03/23 pt has a DBS implanted for this RH Hypertension Hyperlipidemia Stenosis colon Osteoarthritis of left knee mild Small bowel obstruction Diverticulitis PTSD (post-traumatic stress disorder) Dermatitis Anxiety Petechial rash upper and lower extremities, chronic. Started in 2018. COPD (chronic obstructive pulmonary disease) Surgical History Status post small bowel resection S/P exploratory laparotomy small bowel resection History of colonoscopy (~02/2024) History of colostomy reversal Social History Smoking/Tobacco Use Status: Former Tobacco Use Quit Date: 06/15/11 Smoking risk assessment performed?: Yes Alcohol Intake: never Drug use: Never Substance use type: does not use Housing: house Do you feel safe at home: Yes Do you feel safe in your relationship?: Yes Additional Social history: at side Exam Narrative Exam Narrative: General: Nontoxic, comfortable and interactive Abdomen: Soft, nondistended and grossly nontender. There are no peritoneal signs anywhere. She has an area of induration in the center, midline, at the inferior bottom part of her surgical incision. A small 3-4 mm tract is opened up at the bottom of her incision with scant purulent material/fluid coming out of this. Nothing is frankly or obviously enteric although certainly is possible. Her right surgical drain site has healed over completely. The left surgical drain has nothing in it -scant serous fluid only. Her has been recording the output and it has been less than 10 cc for the last 5 days. I removed it at the bedside. Her surgical incision, off?midline, has full of granulation tissue with no significant output. I changed this packing. There is a soft area overlying the indurated soft tissue that is punky and feels like there is fluid beneath it. Results Last Vital Signs Temp 99.1 F 08/03/24 06:19 Pulse 118 H 08/03/24 06:40 Resp 32 H 08/03/24 06:40 BP 149/45 H 08/03/24 06:19 Pulse Ox 91 L 08/03/24 06:40 Labs 08/03/24 06:11 08/03/24 06:11 Labs: Laboratory Results - last 24 hr 08/03/24 08/03/24 06:11 06:11 WBC 7.84 RBC 3.07 L Hgb 8.5 L Hct 27.9 L MCV 91 MCH 27.7 MCHC 30.5 L RDW 14.8 H Plt Count 589 H MPV 9.8 Immature Gran % 1.1 Neutrophils % 69.6 Lymphocytes % 20.0 Monocytes % 8.3 Eosinophils % 0.4 Basophils % 0.6 Nucleated RBC % 0.0 Absolute Neutrophils 5.45 Absolute Lymphocytes 1.57 Absolute Monocytes 0.65 Absolute Eosinophils 0.03 Absolute Basophils 0.05 PT 11.4 H INR 1.1 APTT 25.9 VBG Lactate 2.0 Sodium 138 Potassium 3.9 Chloride 101 Carbon Dioxide 29.5 Anion Gap 7.5 BUN 13 Creatinine 1.0 Est GFR (CKD-EPI 2020) 59.86 Glucose 213 H Calcium 8.9 Magnesium 1.7 L Cancelled Total Bilirubin 0.35 AST 12 L ALT 14 Alkaline Phosphatase 54 Total Protein 7.7 Albumin 2.5 L ABO/Rh A Positive Antibody Screen NEGATIVE Procedures Incision & Drainage Procedure Note Technique: incision (11. Blade used to incise and drain palpable abscess beneath the skin. Copious purulent pus expressed.) Patient tolerance: Patient tolerated fine. Comments: Patient gave verbal consent. A small stab incision was quickly, briefly made into the abscess cavity instantly releasing the pressure with copious pus being expressed.
--- NOTE | 2024-08-03 08:42 | ED.PROG_ITS ---
Date of service: 08/03/24 Time of Service: 08:42 Medical Decision Making Patient was signed out to me by Dr. Mendez pending CT scan results. CT scan results have returned and demonstrates cellulitis in the anterior abdominal wall with gas, concerning to be an infection and potential fistula. We contacted surgery and spoke with Dr. Colon. He came and evaluated the patient. He remove the drain, and I indeed the abscessed area, notable amount of pus and purulence came out. Patient is feeling better. Patient remained stable and is afebrile. Discussed antibiotics versus abstinence of antibiotics post drainage, and at this time surgery would like to hold off and follow-up closely tomorrow with the patient in the office. No additional recommendations at this time. Patient will be discharged home with close follow-up with surgical offices for reassessment tomorrow. We have extensively reviewed the treatment plan and discharge instructions with the patient and their family. We have addressed all patient concerns at this time. The patient and family was made aware of what symptoms to monitor for that would warrant a return to the emergency department. Discussed the plan with the patient and family, they demonstrate verbal understanding and agreement with our assessment and plan at this time. The documentation in this chart was dictated using [employer] dictation software. Please excuse any dictation errors. FINDINGS: Limitations: Mild motion artifact. No contrast was administered, limiting evaluation for some pathologies. Images degraded due to artifact caused by metallic hardware. Lungs: Scarring/atelectasis in the lungs. Coronary arteries: Coronary artery calcifications. Liver: No focal hepatic lesion identified, within the limitations of a noncontrast examination. Gallbladder and biliary ducts: Cholecystectomy. Pancreas: No CT evidence for acute pancreatitis. Spleen: No splenomegaly. Adrenal glands: Adrenal thickening. Kidneys and ureters: No hydronephrosis. Stomach and bowel: Prior bowel surgeries. No intestinal obstruction is evident. Retained fecal material is present in the colon. Appendix: No evidence of appendicitis. Intraperitoneal space: Intra-abdominal collections as described below. Small foci of pneumoperitoneum. Vasculature: Atherosclerotic changes and calcifications in the aorta and its branches. Lymph nodes: Nonspecific mesenteric and retroperitoneal lymph nodes. Bilateral inguinal lymph nodes left greater than right. Urinary bladder: No acute findings. Reproductive: Uterus not visualized. Bones/joints: Fusion from L3-S1 with posterior decompression. Artifact limits evaluation of the surrounding tissues. Soft tissues: There is extensive stranding and gas in the subcutaneous fat of the anterior abdominal wall consistent with cellulitis. The abdominal wall musculature is expanded and edematous, suggesting involvement with infection as well. Drainage catheter is present in the subcutaneous fat of the left lower quadrant. There are multiple gas and fluid collections in the anterior abdominal wall which communicate with intra-abdominal gas and fluid collections. Some of these abut bowel loops, raising suspicion for fistula. Evaluation is limited on noncontrast examination. There is a tract of intraabdominal gas extending from the left lower quadrant superiorly to the left upper quadrant and inferiorly across the midline in the anterior right lower quadrant, possibly communicating with a right lower quadrant ostomy. This appears to represent site of previous drainage catheter. Clinical correlation advised. IMPRESSION: 1. Findings consistent with cellulitis of the anterior abdominal wall. Gas within the abdominal wall may represent recent instrumentation and/or infection with gas producing organisms. 2. Gas in the anterior abdominal wall communicates with intra-abdominal gas and fluid collections consistent with abscesses. Some of these abut bowel loops and fistulization cannot be excluded on this noncontrast examination. 3. Additional findings as above. 4. THIS REPORT CONTAINS FINDINGS THAT MAY BE CRITICAL TO PATIENT CARE. The findings were verbally communicated via telephone conference with Dr. Claire at 7:50 AM EST on 08/03/2024. The findings were acknowledged and understood. Thank you for allowing us to participate in the care of your patient. Dictated and Authenticated by: Edna Vasquez MD 08/03/2024 7:55 AM Eastern Time ([place] & [place]) Quality:SDOH Health Related Social Needs: No Data to Display Discharge Plan Disposition Patient Disposition: Home Condition: Good Discharge Details Chief Complaint: SurgicalRecheck Clinical Impression: Abdominal wall abscess Primary Care Provider: Nikolas Matos ED Provider: Bernardo Claire Home Meds and New Rx's Prescriptions: No Action albuterol sulfate 90 mcg/actuation HFA aerosol inhaler 2 puff inhalation Q6H PRN amlodipine 10 mg tablet 10 mg PO DAILY isosorbide mononitrate 60 mg tablet extended release 24 hr 60 mg PO DAILY nitroglycerin 0.4 mg tablet, sublingual 0.4 mg sublingual Q5M PRN Rx Instructions: do not exceed 3 doses per episode omeprazole 20 mg capsule,delayed release(DR/EC) 20 mg PO BID aspirin 81 mg tablet,delayed release (DR/EC) 81 mg PO DAILY Docusate Sodium 200 mg PO HS diphenhydramine HCl [Allergy (diphenhydramine)] 25 mg capsule 25 mg PO QHS metformin 1,000 mg tablet 1,000 mg PO BID hydroxyzine HCl 25 mg tablet 25 mg PO TID PRN Ozempic 0.25 mg or 0.5 mg (2 mg/3 mL) pen injector 0.5 mg subcut QWEEK Ex-Lax (sennosides) 15 mg tablet,chewable 15 mg PO BID levalbuterol tartrate 45 mcg/actuation HFA aerosol inhaler 2 inh inhalation Q6H atorvastatin 20 mg tablet 20 mg PO DAILY fluticasone furoate-vilanterol [Breo Ellipta] 100-25 mcg/dose blister with device 1 inh inhalation DAILY famotidine 40 mg tablet 40 mg PO DAILY trazodone 100 mg tablet 100 mg PO QHS PRN ondansetron HCl 8 mg tablet 8 mg PO Q12H Qty: 14 0RF losartan 100 mg tablet 100 mg PO DAILY Patient Comments: TAKE ONE TABLET BY MOUTH EVERY DAY metoprolol succinate 50 mg Tablet Extended Release 24 Hr 50 mg PO DAILY Qty: 90 0RF metronidazole 500 mg Tablet 500 mg PO BID Qty: 10 0RF Discharge Instructions Instructions: Abscess Incision and Drainage Additional Instructions: At this time there is been further development of the longstanding disease process for the abdominal wall. With the notable amount of fluid and pus that has come out of the abscess, our surgical colleagues have requested that you follow-up closely tomorrow at the clinic, and we will hold on any new antibiotics at this time. If you notice any worsening of your symptoms, or any new symptoms such as vomiting, diarrhea, fever, chills, shortness of breath, chest pain, numbness, weakness, or fainting , please return immediately to the emergency department for reevaluation. Please follow up with your primary care provider as soon as possible for reassessment and reevaluation. As always, it was a pleasure participating in your medical care today. Referrals: Nikolas Matos [Primary Care Provider] - Elvis Colon MD [ [facility] STAFF PHYSICIAN] -
== END 2024-08-03 08:58 | disposition home or self-care (01) ==
PROVIDERS: Student in an Organized Health Care Education/Training Program; Emergency Provider Student in an Organized Health Care Education/Training Program; PCP Physician Assistant
DX: T81.43XA Infection following a procedure, organ and space surgical site, initial encounter (principal); L02.211 Cutaneous abscess of abdominal wall; L03.311 Cellulitis of abdominal wall; R94.31 Abnormal electrocardiogram [ECG] [EKG]; I10 Essential (primary) hypertension; E78.5 Hyperlipidemia, unspecified; J44.9 Chronic obstructive pulmonary disease, unspecified; E11.9 Type 2 diabetes mellitus without complications; I25.10 Atherosclerotic heart disease of native coronary artery without angina pectoris; G20.A1 Parkinson's disease without dyskinesia, without mention of fluctuations; Z98.1 Arthrodesis status; Z96.82 Presence of neurostimulator; Z79.82 Long term (current) use of aspirin; Z79.84 Long term (current) use of oral hypoglycemic drugs; Z87.891 Personal history of nicotine dependence
CPT/HCPCS: 00123; 10061; 36415; 80053; 86850; 86900; 86901; 87040; 93005; 99285; 74176; 83605; 83735; 85025; 85610; 85730; 93010; J3010

== ENCOUNTER 2024-09-13 18:39 | Outpatient (REF) | payer BC, MEDICARE, SELFPAY ==
[2024-09-13 19:36] LABS: ALT 25 U/L (14-59); AST 25 U/L (15-37); Alkaline Phosphatase 88 U/L (46-116); Anion Gap 13.2 mmol/L (3-11); BUN 19 mg/dL (7-18); Bilirubin, Total 0.2 mg/dL (0.2-1.0); CO2 22.8 mmol/L (21.0-32.0); CREATININE 0.9 mg/dL (0.55-1.02); Calcium 9.2 mg/dL (8.5-10.1); Chloride 106 mmol/L (98-107); Estimated GFR 67.92 (mL/min/1.73m2); Glucose 248 mg/dL (74-106); Potassium 4.5 mmol/L (3.5-5.1); Sodium 142 mmol/L (136-145); Total Protein 7.9 g/dL (6.4-8.2)
[2024-09-13 19:38] LABS: HCT 36.2 % (36.0-46.0); HGB 11.2 g/dL (11.2-15.7); MCH 27.3 pg (27.0-33.0); MCHC 30.9 % (32.0-36.0); MCV 88 fL (80-95); Platelet Count 279 10^3/uL (130-400); RDW 14.6 % (11.7-14.6); RDW-SD 47.2 fL; WBC 7.06 10^3/uL (4.4-10.8)
[2024-09-13 19:50] LABS: Hemoglobin A1C 7.3 % (<5.7)
[2024-09-13 20:36] LABS: COMMENT (LAB VIEW ONLY) 223.08 mg/dL; Microalb ug/mg Crea 8.6 ug/mg Cr
== END 2024-09-13 18:40 | disposition home or self-care (01) ==
LOC: NCHCN 18:39
PROVIDERS: PCP Physician Assistant; Visit Provider Physician Assistant
DX: E11.9 Type 2 diabetes mellitus without complications (principal)
CPT/HCPCS: 80053; 85027; 82043; 82570; 83036

== ENCOUNTER 2024-10-30 10:02 | Emergency (ER) | payer BC, MEDICARE, SELFPAY ==
[2024-10-30 10:15] VITALS: BP 140/92; PULSE 95; RESP 20; TEMP 36.7; O2SAT 95
--- NOTE | 2024-10-30 10:30 | DI.CT_ITS ---
Exam(s) CT ABDOMEN PELVIS WO EXAM: CT ABDOMEN PELVIS WO CLINICAL HISTORY: Tender abdominal mass, hx Surgery. TECHNIQUE: Imaging Protocol: Axial computed tomography images with coronal and sagittal reformatted images were created and reviewed. COMPARISON: CT CT ABDOMEN PELVIS WO from 07/11/[address] ABDOMEN PELVIS WO from 07/18/[address] ABDOMEN PELVIS WO from 08/03/2024 FINDINGS: ABDOMEN: Lung Bases: There is a stable nodule in the left lower lobe. No acute infiltrates are present. Liver: There is diffuse decreased attenuation of the liver consistent with fatty infiltration. No me asurable mass. Gallbladder and biliary tract: Status post cholecystectomy. No significant biliary ductal dilatation is present. Pancreas: Normal density, no abnormal calcifications or inflammatory process. There has been no mota e in appearance of the pancreas compared to the prior examinations. Spleen: Normal. Kidneys: Normal size, contour and axis.No radiodense stones or obstructive uropathy. No masses seen. Adrenal glands: No mass is seen. Lymph nodes: Within normal limits. Abdominal Aorta: Abdominal portion non-dilated. The sclerotic calcification is present. PELVIS: Bladder:Symmetric distention, no gross wall thickening. Bowel: There are diverticula seen in the colon but no evidence of acute diverticulitis. There is a s mall bowel anastomosis again seen in the pelvis. No suspicious air-fluid levels are seen. No defini te evidence to suggest bowel obstruction. There are few loops of small bowel with mild wall thickeni ng. There is mild stranding seen around the small bowel loops in the anterior and inferior abdomen. This may represent a mild enteritis. No evidence of appendicitis. Peritoneal cavity: The previously noted intra-abdominal fluid collections have resolved since 08/03/19 25. No free air. Reproductive organs: Status post hysterectomy. Bones: Within normal limits. Posterior spinal surgery is seen from L3 through S1. Soft Tissues: Within normal limits. Nerve stimulator device is again seen. IMPRESSION: 1. Resolution of the previously seen intra-abdominal fluid collections. 2. Mild wall thickening in surrounding inflammation a loops of small bowel in the lower anterior abdo men suggesting an enteritis. 3. No evidence of bowel obstruction. 4. No pneumoperitoneum. RADIATION DOSE DELIVERED: 718.56mGy.cm Total DLP DATA REPOSITORY: All CT scans at this facility are submitted to the National Radiology Data Registry (NRDR) Dose Index Registry (DIR) with the [employer] ([employer]). RADIATION OPTIMIZATION: All CT scans at this facility use at least one of these dose optimization te chniques: automated exposure control; mA and/or kV adjustment per patient size (includes targeted exa ms where dose is matched to clinical indication); or iterative reconstruction.
--- NOTE | 2024-10-30 10:37 | ED.GENADUL_ITS ---
Discharge Plan Disposition Patient Disposition: Home Condition: Stable Discharge Details Clinical Impression: Enteritis, Abdominal pain Primary Care Provider: Nikolas Matos ED Provider: Jacqueline Obregon Home Meds and New Rx's Prescriptions: Continued albuterol sulfate 90 mcg/actuation HFA aerosol inhaler 2 puff inhalation Q6H PRN amlodipine 10 mg tablet 10 mg PO DAILY isosorbide mononitrate 60 mg tablet extended release 24 hr 60 mg PO DAILY nitroglycerin 0.4 mg tablet, sublingual 0.4 mg sublingual Q5M PRN Rx Instructions: do not exceed 3 doses per episode omeprazole 20 mg capsule,delayed release(DR/EC) 20 mg PO BID aspirin 81 mg tablet,delayed release (DR/EC) 81 mg PO DAILY Docusate Sodium 200 mg PO HS diphenhydramine HCl [Allergy (diphenhydramine)] 25 mg capsule 25 mg PO QHS hydroxyzine HCl 25 mg tablet 25 mg PO TID PRN Ex-Lax (sennosides) 15 mg tablet,chewable 15 mg PO BID levalbuterol tartrate 45 mcg/actuation HFA aerosol inhaler 2 inh inhalation Q6H atorvastatin 20 mg tablet 20 mg PO DAILY fluticasone furoate-vilanterol [Breo Ellipta] 100-25 mcg/dose blister with device 1 inh inhalation DAILY famotidine 40 mg tablet 40 mg PO DAILY trazodone 100 mg tablet 100 mg PO QHS PRN ondansetron HCl 8 mg tablet 8 mg PO Q12H Qty: 14 0RF losartan 100 mg tablet 100 mg PO DAILY Patient Comments: TAKE ONE TABLET BY MOUTH EVERY DAY insulin glargine [Lantus Solostar U-100 Insulin] 100 unit/mL (3 mL) insulin pen 20 unit SUBCUT DAILY Patient Comments: INJECT 20 UNITS SUBCUTANEOUSLY ONCE DAILY metoprolol succinate 50 mg Tablet Extended Release 24 Hr 50 mg PO DAILY Qty: 90 0RF Discharge Instructions Instructions: Viral gastroenteritis in adults, Abdominal Pain, Adult ED Additional Instructions: At this time there is no evidence of the abdominal wall abscess that was previously noted. You do have a little bit of stranding around your small loops of bowel which could indicate an enteritis or a inflammation of your intestines.. I did speak with Dr. Colon regarding your CT results and the lab results and your visit here today. He would be happy to see you in the office this week if it continues to bother you. Follow up with primary care provider/general surgery. In 3-5 days. Return to ED sooner if any worsening bloating, abdominal pain not relieved by Tylenol or ibuprofen, vomiting, blood in your stool, diarrhea, fever or concerns. No evidence of infection in your blood work no evidence of urinary tract infection.. Thank you for allowing us to care for you today. Referrals: Elvis Colon MD [ [facility] STAFF PHYSICIAN] - 1 week (ED visit follow up) Discharge Data Discharge Date/Time-TO BE ENTERED AT DEPARTURE: 10/30/24 13:26 HPI General Mode of arrival: ambulatory . Date/Time Provider Initiated Documentation: 10/30/24 10:07 . Limitations to Documentation: no limitations . Information obtained by: patient, RN notes reviewed and old records reviewed . HPI Narrative: 73-year-old female presents to the ER with a chief complaint of abdominal pain, tender palpable mass which she noticed 2 days ago nausea and chills. Patient does have a history of an extensive abdominal surgery and bowel resection with resultant abdominal wall abscess which was I&D approximately 3 months ago. She also has a history of diabetes mellitus, coronary artery disease Parkinson's hypertension hyperlipidemia diverticulitis anxiety COPD and stenosis of the colon. She denies any heavy lifting or injuries. No diarrhea. She does have an small area of possible hernia that is palpable to the left of her umbilicus which is very tender with palpation. She does have healing surgical scars noted. Denies any problems urinating or any other associated symptoms. Related Data Home Medications ?Medication ?Instructions ?Recorded ?Confirmed Docusate Sodium 200 mg PO HS 04/07/22 10/30/24 albuterol sulfate 90 mcg/actuation 2 puff inhalation Q6H PRN 04/07/22 10/30/24 aerosol inhaler amlodipine 10 mg tablet 10 mg PO DAILY 04/07/22 10/30/24 aspirin 81 mg tablet,delayed 81 mg PO DAILY 04/07/22 10/30/24 release isosorbide mononitrate 60 mg 60 mg PO DAILY 04/07/22 10/30/24 tablet,extended release 24 hr nitroglycerin 0.4 mg sublingual 0.4 mg sublingual Q5M PRN 04/07/22 10/30/24 tablet omeprazole 20 mg capsule,delayed 20 mg PO BID 04/07/22 10/30/24 release hydroxyzine HCl 25 mg tablet 25 mg PO TID PRN 04/21/22 10/30/24 levalbuterol tartrate 45 2 inh inhalation Q6H 07/06/23 10/30/24 mcg/actuation aerosol inhaler atorvastatin 20 mg tablet 20 mg PO DAILY 01/27/24 10/30/24 famotidine 40 mg tablet 40 mg PO DAILY 01/27/24 10/30/24 fluticasone furoate 100 1 inh inhalation DAILY 01/27/24 10/30/24 mcg-vilanterol 25 mcg/dose inhalation powder (Breo Ellipta) trazodone 100 mg tablet 100 mg PO QHS PRN 01/27/24 10/30/24 losartan 100 mg tablet 100 mg PO DAILY 03/01/24 10/30/24 metoprolol succinate 50 mg 50 mg PO DAILY #90 tabs 05/05/24 10/30/24 tablet,extended release 24 hr diphenhydramine HCl 25 mg capsule 25 mg PO QHS 05/18/24 10/30/24 (Allergy (diphenhydramine)) sennosides 15 mg chewable tablet 15 mg PO BID 05/18/24 10/30/24 (Ex-Lax (sennosides)) ondansetron HCl 8 mg tablet 8 mg PO Q12H #14 tabs 07/18/24 10/30/24 insulin glargine 100 unit/mL (3 20 unit subcut DAILY 10/30/24 10/30/24 mL) subcutaneous pen (Lantus Solostar U-100 Insulin) Previous Rx's ?Medication ?Instructions ?Recorded metoprolol succinate 50 mg 50 mg PO DAILY #90 tabs 05/05/24 tablet,extended release 24 hr ondansetron HCl 8 mg tablet 8 mg PO Q12H #14 tabs 07/18/24 Allergies Allergy/AdvReac Type Severity Reaction Status Date / Time alprazolam (From Xanax) Allergy Severe hives Verified 10/30/24 10:21 codeine Allergy Severe throat Verified 10/30/24 10:21 swells shut meperidine (From Demerol) Allergy Severe Hives Verified 10/30/24 10:21 Penicillins Allergy Severe throat Verified 10/30/24 10:21 swells shut butorphanol (From Stadol) Allergy Intermediate Anaphylaxis Verified 10/30/24 10:21 Iodinated Contrast Media Allergy Intermediate rash, Verified 10/30/24 10:21 nausea, vomiting ketorolac (From Toradol) AdvReac Intermediate Nausea Verified 10/30/24 10:21 IV Contrast Allergy Severe Skin Rash Uncoded 10/30/24 10:21 General Stated Complaint: Abd Prob ABRAHAM: 3 Review of Systems All systems reviewed & are unremarkable except as noted in HPI and below Gastrointestinal Gastrointestinal: Reports as per HPI, Reports abdominal pain and Reports nausea Exam Narrative Exam Narrative: Constitutional: Alert and oriented x3. Appears stated age. Normal body habitus. Head: Normocephalic, no trauma. Eyes: Pupils PERRL, Red reflex noted, EOM's intact. Eyelids symmetrical without lesions, discharge, or swelling. ENT: Bilateral TM's WNL, External ear normal to inspection, no mastoid TTP, swelling, or erythema, Nasal turbinates WNL, no nasal discharge. Normal dentition, Posterior pharynx WNL, no exudate. Chest: RRR, Normal S1, S2, distal pulses intact. Resp: Lungs clear to auscultation bilaterally, no wheezes, rales, or rhonchi. Abdomen: Soft, see exam below Musculoskeletal: Normal gait, Moves all 4 extremities without difficulty. Skin: No suspicious rashes or lesions. Capillary refill less than 2 sec. Neurologic: Cranial nerves II-XII intact. Alert and oriented x 3. Motor: No deficits noted. Sensory: Intact bilaterally all 4 extremities. Hematologic/Lymphatic: No ecchymosis, no lymphadenopathy. GI Inspection: scar Palpation: soft, hernia umbilical and tender periumbilically Course Vital Signs Vital signs: Vital Signs Temperature 36.7 C 10/30/24 10:15 Pulse 95 H 10/30/24 10:15 Respiratory Rate 20 10/30/24 10:15 Blood Pressure 140/92 H 10/30/24 10:15 Pulse Oximetry 95 10/30/24 10:15 Temperature 36.7 C 10/30/24 10:15 Pulse 95 H 10/30/24 10:15 Respiratory Rate 20 10/30/24 10:15 Blood Pressure 140/92 H 10/30/24 10:15 Pulse Oximetry 95 10/30/24 10:15 Oxygen Delivery Method Room Air 10/30/24 10:15 Oxygen Flow Rate 0 10/30/24 10:15 Medical Decision Making 73-year-old female presents to the ER with a chief complaint of abdominal pain, tender palpable mass which she noticed 2 days ago nausea and chills. Patient does have a history of an extensive abdominal surgery and bowel resection with resultant abdominal wall abscess which was I&D approximately 3 months ago. She also has a history of diabetes mellitus, coronary artery disease Parkinson's hypertension hyperlipidemia diverticulitis anxiety COPD and stenosis of the colon. She denies any heavy lifting or injuries. No diarrhea. She does have an small area of possible hernia that is palpable to the left of her umbilicus which is very tender with palpation. She does have healing surgical scars noted. Denies any problems urinating or any other associated symptoms. Labs ordered including CBC CMP urinalysis CT abdomen pelvis without contrast. Differential diagnosis includes not limited to gastroenteritis, hernia, constipation Workup is largely unremarkable, no leukocytosis, CMP largely within normal limits magnesium slightly low. No evidence of urinary tract infection. CT abdomen pelvis shows that the previously intra-abdominal fluid collections have resolved no free air. There is a small amount of enteritis with stranding in the anterior inferior abdomen. Questionable enteritis. I did discuss findings with patient and family. She is still complaining of some abdominal pain. Will go ahead and consult with general surgery Dr. Colon is on at this time. I do suspect disposition to be discharged with follow-up care. 1242: Spoke with Dr. Colon regarding patient's labs and CT images and presentation he verbalized understanding. He does agree that is reasonable to discharge patient and he reports that he would be happy to see them in follow-up in the office this coming week if it continues to bother her. She remained hemodynamically stable throughout the remainder of her stay. Which she was discharged into the care of her family. Directed follow-up with general surgery or return to the ER for any worsening. This text was generated using [employer] system, please disregard any oddities of phrase or misspellings. Medical Records Medical records reviewed: Yes I reviewed the patient's medical records. Imaging Data Radiologic Study: Imaging: CT Scan Radiologist's impression: ABDOMEN: Lung Bases: There is a stable nodule in the left lower lobe. No acute infiltrates are present. Liver: There is diffuse decreased attenuation of the liver consistent with fatty infiltration. No measurable mass. Gallbladder and biliary tract: Status post cholecystectomy. No significant biliary ductal dilatation is present. Pancreas: Normal density, no abnormal calcifications or inflammatory process. There has been no change in appearance of the pancreas compared to the prior examinations. Spleen: Normal. Kidneys: Normal size, contour and axis.No radiodense stones or obstructive uropathy. No masses seen. Adrenal glands: No mass is seen. Lymph nodes: Within normal limits. Abdominal Aorta: Abdominal portion non-dilated. The sclerotic calcification is present. PELVIS: Bladder:Symmetric distention, no gross wall thickening. Bowel: There are diverticula seen in the colon but no evidence of acute diverticulitis. There is a small bowel anastomosis again seen in the pelvis. No suspicious air-fluid levels are seen. No definite evidence to suggest bowel obstruction. There are few loops of small bowel with mild wall thickening. There is mild stranding seen around the small bowel loops in the anterior and inferior abdomen. This may represent a mild enteritis. No evidence of appendicitis. Peritoneal cavity: The previously noted intra-abdominal fluid collections have resolved since 08/03/2024. No free air. Reproductive organs: Status post hysterectomy. Bones: Within normal limits. Posterior spinal surgery is seen from L3 through S1. Soft Tissues: Within normal limits. Nerve stimulator device is again seen. IMPRESSION: 1. Resolution of the previously seen intra-abdominal fluid collections. 2. Mild wall thickening in surrounding inflammation a loops of small bowel in the lower anterior abdomen suggesting an enteritis. 3. No evidence of bowel obstruction. 4. No pneumoperitoneum. Lab Data Lab results reviewed: Yes I reviewed the patient's lab results. Labs: Laboratory Tests Range/Units 10/30/24 10/30/24 10:32 11:15 WBC (4.4-10.8) 10^3/uL 9.28 RBC (3.93-5.22) 10^6/uL 4.42 Hgb (11.2-15.7) g/dL 11.7 Hct (36.0-46.0) % 37.5 MCV (80-95) fL 85 MCH (27.0-33.0) pg 26.5 L MCHC (32.0-36.0) % 31.2 L RDW (11.7-14.6) % 14.2 Plt Count (130-400) 10^3/uL 272 MPV (8.0-11.0) fL 10.0 Immature Gran % % 0.4 Neutrophils % % 65.9 Lymphocytes % % 25.5 Monocytes % % 6.1 Eosinophils % % 1.7 Basophils % % 0.4 Nucleated RBC % (0.0-0.3) % 0.0 Absolute Neutrophils (1.2-6.7) 10^3/uL 6.10 Absolute Lymphocytes (1.2-3.4) 10^3/uL 2.37 Absolute Monocytes (0.1-0.8) 10^3/uL 0.57 Absolute Eosinophils (0.0-0.7) 10^3/uL 0.16 Absolute Basophils (0.0-0.2) 10^3/uL 0.04 Sodium (136-145) mmol/L 137 Potassium (3.5-5.1) mmol/L 4.1 Chloride (98-107) mmol/L 102 Carbon Dioxide (21.0-32.0) mmol/L 25.3 Anion Gap (3-11) mmol/L 9.7 BUN (7-18) mg/dL 14 Creatinine (0.55-1.02) mg/dL 0.9 Est GFR (CKD-EPI 2020) (mL/min/1.73m2) 67.92 Glucose (74-106) mg/dL 190 H Calcium (8.5-10.1) mg/dL 9.0 Magnesium (1.8-2.4) mg/dL 1.7 L Total Bilirubin (0.2-1.0) mg/dL 0.3 AST (15-37) U/L 25 ALT (14-59) U/L 29 Alkaline Phosphatase (46-116) U/L 102 Total Protein (6.4-8.2) g/dL 7.9 Albumin (3.4-5.0) g/dL 3.8 Lipase (<78) U/L 23 Urine Color (Yellow) Yellow Urine Clarity (Clear) Cloudy Urine pH (5-8) 5.5 Ur Specific [place] (1.005-1.025) >= 1.030 H Urine Protein (Neg-Trace) mg/dL Trace Urine Ketones (Negative) mg/dL Negative Urine Blood (Negative) Negative Urine Nitrite (Negative) Negative Urine Bilirubin (Negative) Negative Urine Urobilinogen (Up to 0.2) mg/dL 0.2 Ur Leukocyte Esterase (Negative) Negative Urine Glucose (Negative) mg/dL 500 H Quality:SDOH Health Related Social Needs: No Data to Display PFSH All Active Problems (Updated 10/30/24 @ 12:45 by Jacqueline Obregon NP) Abdominal pain (Acute) Enteritis (Acute) Abdominal wall abscess (Acute) Tachycardia (Acute) Chronic abdominal pain (Acute) Enterocutaneous fistula (Chronic) Hyperglycemia (Acute) 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 (Acute) Arthritis (Acute) Back pain (Acute) GERD (gastroesophageal reflux disease) (Chronic) Obesity (Chronic) Claustrophobia (Acute) Osteoporosis (Chronic) Headache (Acute) Asthma with COPD (chronic obstructive pulmonary disease) (Acute) Vitamin D deficiency (Acute) Corns and callosities (Acute) Cubital tunnel syndrome on left (Acute) Cubital tunnel syndrome on right (Acute) Trigger finger, left middle finger (Acute) Trigger finger, right middle finger (Acute) Left carpal tunnel syndrome (Acute) Right carpal tunnel syndrome (Acute) Medical History Hypokalemia Abdominal discomfort Screening for colon cancer Diabetes mellitus CAD (coronary artery disease) Parkinsons disease 02/03/23 pt has a DBS implanted for this RH Hypertension Hyperlipidemia Stenosis colon Osteoarthritis of left knee mild Small bowel obstruction Diverticulitis PTSD (post-traumatic stress disorder) Dermatitis Anxiety Petechial rash upper and lower extremities, chronic. Started in 2018. COPD (chronic obstructive pulmonary disease) Surgical History Status post small bowel resection S/P exploratory laparotomy small bowel resection History of colonoscopy (~02/2024) History of colostomy reversal Social History Smoking/Tobacco Use Status: Former Tobacco Use Quit Date: 06/15/11 Smoking risk assessment performed?: Yes Alcohol Intake: never Drug use: Never Substance use type: does not use Housing: house Do you feel safe at home: Yes Do you feel safe in your relationship?: Yes Additional Social history: at side
[2024-10-30 10:52] LABS: Bilirubin Negative (Negative); Blood Negative (Negative); Clarity Cloudy (Clear); Glucose 500 mg/dL (Negative); Ketones Negative (Negative); Leukocyte Esterase Negative (Negative); Nitrite Negative (Negative); Specific Gravity >= 1.030 (1.005-1.025); Urobilinogen 0.2 mg/dL (Up to 0.2); pH 5.5 (5-8)
[2024-10-30 11:29] LABS: Abs Immature Grans 0.04 10^3/uL (0.0-0.06); Absolute Basophil Count 0.04 10^3/uL (0.0-0.2); Absolute Eosinophil Count 0.16 10^3/uL (0.0-0.7); Absolute Lymphocyte Count 2.37 10^3/uL (1.2-3.4); Absolute Monocyte Count 0.57 10^3/uL (0.1-0.8); Basophils % 0.4 %; Eosinophils % 1.7 %; HCT 37.5 % (36.0-46.0); HGB 11.7 g/dL (11.2-15.7); Immature Grans % 0.4 %; Lymphocytes % 25.5 %; MCH 26.5 pg (27.0-33.0); MCHC 31.2 % (32.0-36.0); MCV 85 fL (80-95); Monocytes % 6.1 %; Neutrophils % 65.9 %; Platelet Count 272 10^3/uL (130-400); RBC 4.42 10^6/uL (3.93-5.22); RDW 14.2 % (11.7-14.6); RDW-SD 43.8 fL; WBC 9.28 10^3/uL (4.4-10.8)
[2024-10-30 11:43] LABS: ALT 29 U/L (14-59); AST 25 U/L (15-37); Albumin 3.8 g/dL (3.4-5.0); Alkaline Phosphatase 102 U/L (46-116); Anion Gap 9.7 mmol/L (3-11); BUN 14 mg/dL (7-18); Bilirubin, Total 0.3 mg/dL (0.2-1.0); CO2 25.3 mmol/L (21.0-32.0); CREATININE 0.9 mg/dL (0.55-1.02); Chloride 102 mmol/L (98-107); Estimated GFR 67.92 (mL/min/1.73m2); Glucose 190 mg/dL (74-106); Lipase 23 U/L (<78); Magnesium 1.7 mg/dL (1.8-2.4); Potassium 4.1 mmol/L (3.5-5.1); Sodium 137 mmol/L (136-145); Total Protein 7.9 g/dL (6.4-8.2)
[2024-10-30] MEDS: Ondansetron 4 MG/2 ML VIAL IVP (12:06)
[2024-10-30] MEDS: MORPHine 10 MG/ML VIAL 2 MG IVP (12:06)
[2024-10-30] MEDS: HYDROmorphone 2 MG/ML SYR 0.5 MG IVP (12:38)
[2024-10-30 12:39] VITALS: BP 146/87; PULSE 84; RESP 22; O2SAT 95
[2024-10-30 13:23] VITALS: BP 146/72; PULSE 83
== END 2024-10-30 13:26 | disposition home or self-care (01) ==
PROVIDERS: Emergency Provider Registered Nurse Emergency; PCP Physician Assistant
DX: K52.9 Noninfective gastroenteritis and colitis, unspecified (principal); E11.9 Type 2 diabetes mellitus without complications; I25.10 Atherosclerotic heart disease of native coronary artery without angina pectoris; I10 Essential (primary) hypertension; E78.5 Hyperlipidemia, unspecified; J44.9 Chronic obstructive pulmonary disease, unspecified; G20.A1 Parkinson's disease without dyskinesia, without mention of fluctuations; Z79.82 Long term (current) use of aspirin; Z79.4 Long term (current) use of insulin; Z90.710 Acquired absence of both cervix and uterus; Z98.1 Arthrodesis status; Z96.82 Presence of neurostimulator; Z87.891 Personal history of nicotine dependence
CPT/HCPCS: 36415; 80053; 83690; 96374; 96375; 99284; 74176; 81003; 83735; 85025; J1171; J2270; J2405